=== PATIENT | female | born 1955 | race Caucasian/White ===

== ENCOUNTER 2016-08-21 10:51 | Emergency (ER) | payer MEDICARE ==
[2016-08-21 11:01] VITALS: TEMP 98.8
[2016-08-21] MEDS ORDERED: ONDANSETRON 4 MG/2 ML VIAL IVP STA (12:02)
[2016-08-21] MEDS ORDERED: MORPHINE SULFATE 4 MG/ML SYRINGE IV STA (12:02)
[2016-08-21] MEDS ORDERED: SODIUM CHLORIDE 0.9% 500 ML IV STA (12:07)
--- NOTE | 2016-08-21 12:10 | ED ---
Nausea/Vomiting/Diarrhea HPI - General Chief complaint: Nausea/Vomiting/Diarrhea Stated complaint: Nausea/Vomiting Time Seen by Provider: 08/21/16 10:55 Source: patient, EMS Mode of arrival: ambulatory Limitations: no limitations - History of Present Illness Initial comments: This patient is a 61-year-old woman who comes to be evaluated after she had a syncopal episode at her doctor's office this morning. The patient states that she had gone to see her physician, Dr. Pressley, after she has had a number of days of nausea and vomiting with some diffuse abdominal pain. The patient states that while she was there she got up, then she started seeing stars and felt lightheaded, then she remembers waking up on the floor. The patient does note that she has not been able to keep down much in way of fluids or her medications. She started having some nausea and vomiting on Wednesday night which has continued. She also has a little bit of diffuse abdominal pain that does seem to come and go. Patient states she has not been able keep down much in way of fluids or take any of her medications for about the past 4-5 days. MD complaint: nausea, vomiting, abdominal pain, other (Syncope) Onset/Timin -: days(s) Description of Vomiting: food contents Associated Abdominal Pain: Yes Location: diffuse Radiation: none Severity: moderate Quality: cramping, stabbing Consistency: intermittent Improves with: none Worsens with: none Associated Symptoms: denies other symptoms - Related Data Home Medications Medication Instructions Recorded Confirmed Gabapentin 800 mg PO TID 09/04/15 08/21/16 Oxybutynin Chloride [Ditropan] 10 mg PO BID 11/28/15 08/21/16 Triamcinolone 0.1% Cream [Kenalog] 1 applic TOPICAL BID 01/31/16 08/21/16 Carboxymethylcellulose Sodium 1 drop OPHTHALMIC BID PRN 06/30/16 08/21/16 [Refresh Tears] Ibuprofen [Motrin] 800 mg PO Q8H PRN 06/30/16 08/21/16 Levothyroxine Sodium [Synthroid] 100 mcg PO DAILY 06/30/16 08/21/16 Tamsulosin HCl [Flomax] 0.8 mg PO DAILY 06/30/16 08/21/16 hydrOXYzine HCL 10 mg PO HS 06/30/16 08/21/16 oxyCODONE-APAP 5-325MG [Percocet 1 tab PO Q6H PRN 06/30/16 08/21/16 5-325 mg] Mirabegron [Myrbetriq] 25 mg PO DAILY 08/21/16 08/21/16 Ondansetron Odt [Zofran Odt] 4 mg PO QID PRN 08/21/16 08/21/16 Oseltamivir [Tamiflu] 75 mg PO BID 08/21/16 08/21/16 Previous Rx's Medication Instructions Recorded Omeprazole [PriLOSEC] 20 mg PO AC-BID 15 Days 02/13/15 Dicyclomine [Bentyl] 20 mg PO QID #15 tablet 08/21/16 Ondansetron Odt [Zofran ODT] 4 mg PO Q8HR PRN #10 tab 08/21/16 Allergies Allergy/AdvReac Type Severity Reaction Status Date / Time adhesive tape Allergy Itching, Verified 08/21/16 11:20 REDNESS ciprofloxacin [From Cipro] Allergy Rash/Hives Verified 08/21/16 11:20 ciprofloxacin HCl Allergy Rash/Hives Verified 08/21/16 11:20 [From Cipro] colesevelam HCl Allergy Rash/Hives Verified 08/21/16 11:20 [From WelChol] latex Allergy Anaphylaxis Verified 08/21/16 11:20 levofloxacin [From Levaquin] Allergy Unknown Verified 08/21/16 11:20 prochlorperazine edisylate Allergy Anaphylaxis Verified 08/21/16 11:20 [From Compazine] prochlorperazine maleate Allergy Anaphylaxis Verified 08/21/16 11:20 [From Compazine] zolpidem [From Ambien] Allergy Anaphylaxis Verified 08/21/16 11:20 nitroglycerin AdvReac Swelling Verified 08/21/16 11:20 tramadol HCl [From Ultram] AdvReac WEAKNESS, Verified 08/21/16 11:20 DIZZYNESS COMBID Allergy Anaphylaxis Uncoded 08/21/16 11:08 Review of Systems ROS Statement: Those systems with pertinent positive or pertinent negative responses have been documented in the HPI. ROS Other: All systems not noted in ROS Statement are negative. Constitutional: Denies: fever, chills, weakness Respiratory: Denies: cough, dyspnea Cardiovascular: Reports: syncope. Denies: chest pain, palpitations, edema Gastrointestinal: Reports: abdominal pain, nausea, vomiting. Denies: diarrhea, constipation Genitourinary: Denies: dysuria, hematuria Musculoskeletal: Denies: back pain Skin: Denies: rash Neurological: Denies: headache, weakness, numbness Past Medical History Past Medical History: Chest Pain / Angina, Eye Disorder, Fibromyalgia, GERD/ Reflux, Memory Impairment, Osteoarthritis (OA), Pneumonia, Seizure Disorder, Thyroid Disorder Additional Past Medical History / Comment(s): Brain Aneurysm. FREYA RESOLVED. 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 MINOR, OCC Short term memory loss. DDD Cervical, Thoracic, Lumbar levels. Chronic Pain syndrome in Back. HX Breast CA. Proctosigmoiditis w/ Colostomy. Diverticulosis. Neuropathy kalyani legs/feet. Migraines. Veritgo. Glaucoma kalyani. KEISHA-BARRE, septic shock History of Any Multi-Drug Resistant Organisms: C-DIFF Date of last positivie culture/infection: 2010 MDRO Source:: stool Past Surgical History: Adenoidectomy, Back Surgery, Bladder Surgery, Bowel Resection, Breast Surgery, Cholecystectomy, Heart Catheterization, Hysterectomy , Joint Replacement, Tonsillectomy Additional Past Surgical History / Comment(s): 12/06/13 Cardiac cath-normal. cervical Fusion, Back surgury-rods/screws/cage, partial bowel resection with colostomy, bilateral mastectomies, total RIGHT KNEE REPLACEMENT, L knee arthroscopy, bladder suspension, cataracts Past Anesthesia/Blood Transfusion Reactions: Family History of Problems w/ Anesthesia, Postoperative Nausea & Vomiting (PONV) Additional Past Anesthesia/Blood Transfusion Reaction / Comment(s): FAMILY HAS PONV. Past Psychological History: Anxiety, Depression Additional Psychological History / Comment(s): Past medical records indicate manic depression, bulimia. R/T OF SPOUSE, MOTHER'S ILLNESS. Smoking Status: Never smoker Past Alcohol Use History: None Reported Past Drug Use History: None Reported - Past Family History Father Family Medical History: Cancer, Musculoskeletal Disorder, Neurologic Disorder Additional Family Medical History / Comment(s): Father at 77 yrs. He had parkinson's dx. Mother Family Medical History: Cancer Additional Family Medical History / Comment(s): Mother had breast cancer. She is alive and 82 yrs old. General Exam Limitations: no limitations General appearance: alert, in no apparent distress Head exam: Present: atraumatic, normocephalic Eye exam: Present: normal appearance. Absent: scleral icterus, conjunctival injection ENT exam: Present: mucous membranes dry Neck exam: Present: normal inspection, full ROM Respiratory exam: Present: normal lung sounds bilaterally. Absent: respiratory distress, wheezes, rales, rhonchi, stridor Cardiovascular Exam: Present: regular rate, normal rhythm, normal heart sounds. Absent: systolic murmur, diastolic murmur, rubs, gallop GI/Abdominal exam: Present: soft, normal bowel sounds. Absent: distended, tenderness, guarding, rebound, mass, pulsatile mass, hernia Extremities exam: Present: normal inspection, normal capillary refill. Absent: pedal edema, calf tenderness Back exam: Present: normal inspection. Absent: CVA tenderness (R), CVA tenderness (L) Neurological exam: Present: alert Skin exam: Present: warm, dry, intact, normal color. Absent: rash Course Vital Signs 08/21/16 08/21/16 10:55 13:00 Temperature 98.8 F Pulse Rate 75 73 Respiratory 14 18 Rate Blood Pressure 120/58 116/58 O2 Sat by Pulse 98 99 Oximetry Medical Decision Making - Medical Decision Making Patient is 61-year-old woman being seen for syncopal episode after having multiple episodes of vomiting over the past few days. The workup shows probably mild dehydration. Patient has received IV fluids and medication and is feeling much better. I did discuss the results with the patient and with her physician Dr. Pressley who will follow-up with her. Patient feels well for discharge. - Lab Data Result diagrams: 08/21/16 11:04 08/21/16 11:04 Lab Results 08/21/16 08/21/16 08/21/16 Range/Units 11:04 11:04 11:04 WBC 8.7 (3.8-10.6) k/uL RBC 4.17 (3.80-5.40) m/uL Hgb 12.2 (11.4-16.0) gm/dL Hct 37.2 (34.0-46.0) % MCV 89.2 (80.0-100.0) fL MCH 29.3 (25.0-35.0) pg MCHC 32.9 (31.0-37.0) g/dL RDW 15.2 (11.5-15.5) % Plt Count 297 (150-450) k/uL Neutrophils % 62 % Lymphocytes % 28 % Monocytes % 4 % Eosinophils % 3 % Basophils % 1 % Neutrophils # 5.4 (1.3-7.7) k/uL Lymphocytes # 2.4 (1.0-4.8) k/uL Monocytes # 0.4 (0-1.0) k/uL Eosinophils # 0.3 (0-0.7) k/uL Basophils # 0.1 (0-0.2) k/uL Sodium 145 (137-145) mmol/L Potassium 4.3 (3.5-5.1) mmol/L Chloride 107 (98-107) mmol/L Carbon Dioxide 24 (22-30) mmol/L Anion Gap 14 mmol/L BUN 22 H (7-17) mg/dL Creatinine 0.68 (0.52-1.04) mg/dL Est GFR (MDRD) Af Amer >60 (>60 ml/min/1.73 sqM) Est GFR (MDRD) Non-Af >60 (>60 ml/min/1.73 sqM) Glucose 86 (74-99) mg/dL Calcium 9.8 (8.4-10.2) mg/dL Total Bilirubin 0.4 (0.2-1.3) mg/dL AST 20 (14-36) U/L ALT 32 (9-52) U/L Alkaline Phosphatase 113 (38-126) U/L Troponin I <0.012 (0.000-0.034) ng/mL Total Protein 6.7 (6.3-8.2) g/dL Albumin 3.8 (3.5-5.0) g/dL Amylase <30 L (30-110) U/L Lipase 46 (23-300) U/L Urine Color Urine Appearance (Clear) Urine pH (5.0-8.0) Ur Specific [place] (1.001-1.035) Urine Protein (Negative) Urine Glucose (UA) (Negative) Urine Ketones (Negative) Urine Blood (Negative) Urine Nitrate (Negative) Urine Bilirubin (Negative) Urine Urobilinogen (<2.0) mg/dL Ur Leukocyte Esterase (Negative) 08/21/16 Range/Units 13:10 WBC (3.8-10.6) k/uL RBC (3.80-5.40) m/uL Hgb (11.4-16.0) gm/dL Hct (34.0-46.0) % MCV (80.0-100.0) fL MCH (25.0-35.0) pg MCHC (31.0-37.0) g/dL RDW (11.5-15.5) % Plt Count (150-450) k/uL Neutrophils % % Lymphocytes % % Monocytes % % Eosinophils % % Basophils % % Neutrophils # (1.3-7.7) k/uL Lymphocytes # (1.0-4.8) k/uL Monocytes # (0-1.0) k/uL Eosinophils # (0-0.7) k/uL Basophils # (0-0.2) k/uL Sodium (137-145) mmol/L Potassium (3.5-5.1) mmol/L Chloride (98-107) mmol/L Carbon Dioxide (22-30) mmol/L Anion Gap mmol/L BUN (7-17) mg/dL Creatinine (0.52-1.04) mg/dL Est GFR (MDRD) Af Amer (>60 ml/min/1.73 sqM) Est GFR (MDRD) Non-Af (>60 ml/min/1.73 sqM) Glucose (74-99) mg/dL Calcium (8.4-10.2) mg/dL Total Bilirubin (0.2-1.3) mg/dL AST (14-36) U/L ALT (9-52) U/L Alkaline Phosphatase (38-126) U/L Troponin I (0.000-0.034) ng/mL Total Protein (6.3-8.2) g/dL Albumin (3.5-5.0) g/dL Amylase (30-110) U/L Lipase (23-300) U/L Urine Color Light Yellow Urine Appearance Clear (Clear) Urine pH 6.0 (5.0-8.0) Ur Specific [place] 1.008 (1.001-1.035) Urine Protein Negative (Negative) Urine Glucose (UA) Negative (Negative) Urine Ketones Negative (Negative) Urine Blood Negative (Negative) Urine Nitrate Negative (Negative) Urine Bilirubin Negative (Negative) Urine Urobilinogen <2.0 (<2.0) mg/dL Ur Leukocyte Esterase Negative (Negative) - EKG Data -: EKG Interpreted by Me EKG shows normal: sinus rhythm, axis (Normal), intervals (Normal), QRS complexes (Normal), ST-T waves (Normal) Rate: normal (Rate 74 bpm) Interpretation: normal EKG Disposition Clinical Impression: Vomiting, Syncope Disposition: HOME SELF-CARE Condition: Fair Instructions: Acute Nausea and Vomiting (ED) Prescriptions: Dicyclomine [Bentyl] 20 mg PO QID #15 tablet Ondansetron Odt [Zofran ODT] 4 mg PO Q8HR PRN #10 tab PRN Reason: Nausea Referrals: Jaskaran Pressley MD [Primary Care Provider] - 1-2 days
[2016-08-21 12:20] LABS: Basophils # (A) 0.1 k/uL (0-0.2); Basophils % (A) 1 %; CH 29.4; CHCM 33.1; Eosinophils # (A) 0.3 k/uL (0-0.7); Eosinophils % (A) 3 %; HCT 37.2 % (34.0-46.0); HDW 3.09; HGB 12.2 gm/dL (11.4-16.0); Luc # (Auto) 0.15; Luc % (Auto) 2; Lymphocytes # (A) 2.4 k/uL (1.0-4.8); Lymphocytes % (A) 28 %; MCH 29.3 pg (25.0-35.0); MCHC 32.9 g/dL (31.0-37.0); MCV 89.2 fL (80.0-100.0); Mean Platelet Volume 8.5; Monocytes # (A) 0.4 k/uL (0-1.0); Monocytes % (A) 4 %; Neutrophils # (A) 5.4 k/uL (1.3-7.7); Neutrophils % (A) 62 %; RBC 4.17 m/uL (3.80-5.40); RDW 15.2 % (11.5-15.5); WBC 8.7 k/uL (3.8-10.6); WBC (Perox) 8.72
[2016-08-21 12:29] LABS: ALT 32 U/L (9-52); AST 20 U/L (14-36); Alkaline Phosphatase 113 U/L (38-126); Amylase <30 U/L (30-110); Anion Gap 14 mmol/L; Blood Urea Nitrogen 22 mg/dL (7-17); Calcium 9.8 mg/dL (8.4-10.2); Carbon Dioxide 24 mmol/L (22-30); Chloride 107 mmol/L (98-107); Glucose 86 mg/dL (74-99); Non-African American GFR(MDRD) >60 (>60 ml/min/1.73 sqM); Potassium 4.3 mmol/L (3.5-5.1); Sodium 145 mmol/L (137-145); Total Bilirubin 0.4 mg/dL (0.2-1.3); Total Protein 6.7 g/dL (6.3-8.2)
--- NOTE | 2016-08-21 12:32 | XR ---
EXAMINATION TYPE: XR KUB DATE OF EXAM: 08/21/2016 12:26 PM CLINICAL HISTORY: Abdominal pain and nausea. TECHNIQUE: 2 upright KUB images of the abdomen are obtained COMPARISON: Abdominal x-ray April 20, 2014. FINDINGS: Scattered gas is seen in non-distended small bowel loops. Gas and fecal material is seen in non-distended colon. Long segment fusion surgery from L3 through S1 level is redemonstrated. Surgi sam changes at bilateral pubic symphysis are again seen. Scattered pelvic phleboliths are redemonstra daren. No pneumoperitoneum is identified. Lung bases are clear. IMPRESSION: Overall nonobstructive bowel gas pattern.
[2016-08-21 13:01] VITALS: BP 116/58; PULSE 73; RESP 18
[2016-08-21] MEDS ORDERED: DICYCLOMINE 10 MG/ML 2 ML AMP IM STA (13:12)
[2016-08-21 13:28] LABS: Appearance,Urine Clear (Clear); Bilirubin,Urine Negative (Negative); Glucose,Urine (UA) Negative (Negative); Ketones,Urine Negative (Negative); Leukocyte Esterase,Urine Negative (Negative); Nitrite,Urine Negative (Negative); Protein,Urine Negative (Negative); Specific Gravity,Urine 1.008 (1.001-1.035); UA Billing (MACRO vs. MICRO) CHEM; Urobilinogen,Urine <2.0 mg/dL (<2.0)
== END 2016-08-21 14:22 | disposition home or self-care (01) ==
LOC: EC 10:51
DX: R55 Syncope and collapse (principal); R11.2 Nausea with vomiting, unspecified; M79.7 Fibromyalgia; K21.9 Gastro-esophageal reflux disease without esophagitis; E07.9 Disorder of thyroid, unspecified; F32.9 Major depressive disorder, single episode, unspecified; G89.4 Chronic pain syndrome; M19.90 Unspecified osteoarthritis, unspecified site; F41.9 Anxiety disorder, unspecified; Z79.899 Other long term (current) drug therapy; Z91.040 Latex allergy status; Z88.1 Allergy status to other antibiotic agents; Z88.8 Allergy status to other drugs, medicaments and biological substances
CPT/HCPCS: 36415; 93005; 80053; 82150; 83690; 84484; 85025; 81003; 74000; 99285; 96374; 96375; 96372; J2270; J0500; J2405

== ENCOUNTER → 2017-01-26 | Outpatient (CLI) | payer MEDICARE ==
--- NOTE | 2017-01-26 16:33 | XR ---
EXAMINATION TYPE: XR abdomen 2V DATE OF EXAM: 01/26/2017 CLINICAL DATA: 61 year-old female nausea for 3 days, gastroenteritis., [facility] COMPARISON: 08/21/2016 FINDINGS: Lung bases are clear. No evidence for free intraperitoneal air. Scattered air within the colon extending distally into the rectum. A couple small nonspecific air-flu id levels are seen within the right mid abdomen. Left lower quadrant colostomy. No dilated small bowel loops seen. Multiple pelvic phleboliths. Posterior lumbar fusion hardware with corresponding laminectomies. IMPRESSION: 1. No evidence of bowel obstruction or free intraperitoneal air. 2. A couple nonspecific small air-fluid levels within the right mid abdomen could represent a regiona l ileus or enteritis.
== END | disposition home or self-care (01) ==
LOC: RADXRMAIN 15:44
PROVIDERS: ATTEND Family Medicine
DX: K52.9 Noninfective gastroenteritis and colitis, unspecified (principal)
CPT/HCPCS: 74020

== ENCOUNTER 2017-02-04 16:33 | Emergency (ER) | payer MEDICARE ==
[2017-02-04] MEDS ORDERED: ONDANSETRON 4 MG/2 ML VIAL IVP STA (17:24)
[2017-02-04] MEDS ORDERED: RX INFO: IV CONTRAST WAS GIVEN 1 EACH MISC MISCELLANE PRN (17:24)
[2017-02-04] MEDS ORDERED: MORPHINE SULFATE 4 MG/ML SYRINGE IVP STA (17:24)
[2017-02-04] MEDS ORDERED: SODIUM CHLORIDE 0.9% 1,000 ML IV ONE (17:24)
[2017-02-04 17:44] LABS: Anisocytosis Slight; Basophils % (A) 0 %; CH 30.2; CHCM 33.9; Eosinophils # (A) 0.2 k/uL (0-0.7); Eosinophils % (A) 1 %; HCT 37.1 % (34.0-46.0); HDW 2.74; HGB 12.2 gm/dL (11.4-16.0); Luc # (Auto) 0.19; Luc % (Auto) 2; Lymphocytes # (A) 2.8 k/uL (1.0-4.8); Lymphocytes % (A) 25 %; MCH 29.5 pg (25.0-35.0); MCV 89.6 fL (80.0-100.0); Mean Platelet Volume 8.3; Monocytes # (A) 0.6 k/uL (0-1.0); Monocytes % (A) 5 %; Neutrophils # (A) 7.6 k/uL (1.3-7.7); Neutrophils % (A) 67 %; RBC 4.14 m/uL (3.80-5.40); RDW 16.3 % (11.5-15.5); WBC 11.4 k/uL (3.8-10.6); WBC (Perox) 11.74
[2017-02-04 17:47] LABS: ALT 46 U/L (9-52); AST 33 U/L (14-36); Alkaline Phosphatase 102 U/L (38-126); Anion Gap 11 mmol/L; Blood Urea Nitrogen 11 mg/dL (7-17); Calcium 9.1 mg/dL (8.4-10.2); Carbon Dioxide 19 mmol/L (22-30); Chloride 105 mmol/L (98-107); Glucose 74 mg/dL (74-99); Non-African American GFR(MDRD) >60 (>60 ml/min/1.73 sqM); Potassium 4.4 mmol/L (3.5-5.1); Sodium 135 mmol/L (137-145); Total Bilirubin 0.2 mg/dL (0.2-1.3); Total Protein 6.3 g/dL (6.3-8.2)
[2017-02-04] MEDS ORDERED: diphenhydrAMINE 50 MG/ML 1 ML VIAL IVP STA (18:04)
[2017-02-04] MEDS ORDERED: FAMOTIDINE 20 MG/2 ML VIAL IV STA (18:04)
[2017-02-04] MEDS ORDERED: methylPREDNISolone SOD SUCCI 125 MG/2 ML VIAL IV STA (18:04)
[2017-02-04 19:12] LABS: Appearance,Urine Clear (Clear); Bilirubin,Urine Negative (Negative); Glucose,Urine (UA) Negative (Negative); Ketones,Urine Negative (Negative); Leukocyte Esterase,Urine Negative (Negative); Nitrite,Urine Negative (Negative); PH, Urine 6.5 (5.0-8.0); Protein,Urine Negative (Negative); Specific Gravity,Urine 1.018 (1.001-1.035); UA Billing (MACRO vs. MICRO) CHEM; Urobilinogen,Urine <2.0 mg/dL (<2.0)
[2017-02-04] MEDS ORDERED: MORPHINE SULFATE 10 MG/ML SYRINGE IVP STA (20:09)
[2017-02-04 20:30] VITALS: RESP 18
--- NOTE | 2017-02-04 21:10 | ED ---
Abdominal Pain HPI - General Chief Complaint: Abdominal Pain Stated Complaint: LEFT SIDE PAIN Source: patient Mode of arrival: wheelchair Limitations: no limitations - History of Present Illness Initial Comments: 61-year-old female presenting for evaluation of left upper quadrant abdominal pain. She describes it as a sharp pain that has been coming and going in waves and is currently at a 9 out of 10. She states it started at 11: 00 this morning and had associated nausea and vomiting with it. She's never had pain like this before and states that it goes from the left anterior upper quadrant around her flank to her back. She was recently treated for colitis and states that those symptoms have since resolved. She denies any chest pain, shortness of breath, fevers, chills, dysuria, diarrhea however there is some constipation but it is at her baseline. - Related Data Home Medications Medication Instructions Recorded Confirmed Gabapentin 800 mg PO TID 09/04/15 02/04/17 Oxybutynin Chloride [Ditropan] 10 mg PO BID 11/28/15 02/04/17 Triamcinolone 0.1% Cream [Kenalog] 1 applic TOPICAL BID 01/31/16 02/04/17 Carboxymethylcellulose Sodium 1 drop BOTH EYES BID PRN 06/30/16 02/04/17 [Refresh Tears] Ibuprofen [Motrin] 800 mg PO Q8H PRN 06/30/16 02/04/17 Levothyroxine Sodium [Synthroid] 100 mcg PO DAILY 06/30/16 02/04/17 Tamsulosin HCl [Flomax] 0.8 mg PO BID 06/30/16 02/04/17 oxyCODONE-APAP 5-325MG [Percocet 1 tab PO BID PRN 06/30/16 02/04/17 5-325 mg] Ondansetron Odt [Zofran ODT] 4 mg PO Q6H PRN 02/04/17 02/04/17 Sulfamethox-Tmp 800-160Mg [Bactrim 1 tab PO Q12HR 02/04/17 02/04/17 DS 800-160 mg] buPROPion HCL [Wellbutrin XL] 300 mg PO DAILY 02/04/17 02/04/17 metroNIDAZOLE [Flagyl] 500 mg PO QID 02/04/17 02/04/17 Previous Rx's Medication Instructions Recorded Omeprazole [PriLOSEC] 20 mg PO AC-BID 15 Days 02/13/15 Allergies Allergy/AdvReac Type Severity Reaction Status Date / Time adhesive tape Allergy Rash/Hives Verified 02/04/17 17:06 ciprofloxacin [From Cipro] Allergy Rash/Hives Verified 02/04/17 17:06 ciprofloxacin HCl Allergy Rash/Hives Verified 02/04/17 17:06 [From Cipro] colesevelam HCl Allergy Rash/Hives Verified 02/04/17 17:06 [From WelChol] latex Allergy Rash/Hives Verified 02/04/17 17:06 levofloxacin [From Levaquin] Allergy Rash/Hives Verified 02/04/17 17:06 prochlorperazine edisylate Allergy Swelling Verified 02/04/17 17:06 [From Compazine] prochlorperazine maleate Allergy Swelling Verified 02/04/17 17:06 [From Compazine] nitroglycerin AdvReac Dyspnea Verified 02/04/17 17:06 tramadol HCl [From Ultram] AdvReac WEAKNESS, Verified 02/04/17 17:06 DIZZYNESS zolpidem [From Ambien] AdvReac SLEEP Verified 02/04/17 17:06 WALKING COMBID Allergy Rash/Hives Uncoded 02/04/17 17:06 Review of Systems ROS Statement: Those systems with pertinent positive or pertinent negative responses have been documented in the HPI. ROS Other: All systems not noted in ROS Statement are negative. Constitutional: Denies: fever, chills Eyes: Denies: eye pain, eye discharge ENT: Denies: ear pain, throat pain, dental pain Respiratory: Denies: cough, dyspnea, wheezes, hemoptysis, stridor Cardiovascular: Denies: chest pain, palpitations, edema, syncope Endocrine: Denies: fatigue, polydipsia, polyuria Gastrointestinal: Reports: abdominal pain, nausea, vomiting, constipation. Denies: diarrhea, hematemesis, melena, hematochezia Genitourinary: Denies: urgency, dysuria, frequency, hematuria Musculoskeletal: Reports: back pain (pain radiates around flank to back). Denies: arthralgia, myalgia Skin: Denies: rash, lesions Neurological: Denies: headache, weakness Psychiatric: Denies: anxiety, depression Hematological/Lymphatic: Denies: easy bleeding, easy bruising Past Medical History Past Medical History: Chest Pain / Angina, Eye Disorder, Fibromyalgia, GERD/ Reflux, Memory Impairment, Osteoarthritis (OA), Pneumonia, Seizure Disorder, Thyroid Disorder Additional Past Medical History / Comment(s): Brain Aneurysm. FREYA RESOLVED. 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 MINOR, OCC Short term memory loss. DDD Cervical, Thoracic, Lumbar levels. Chronic Pain syndrome in Back. HX Breast CA. Proctosigmoiditis w/ Colostomy. Diverticulosis. Neuropathy kalyani legs/feet. Migraines. Veritgo. Glaucoma kalyani. KEISHA-BARRE, septic shock History of Any Multi-Drug Resistant Organisms: C-DIFF Date of last positivie culture/infection: 2010 MDRO Source:: stool Past Surgical History: Adenoidectomy, Back Surgery, Bladder Surgery, Bowel Resection, Breast Surgery, Cholecystectomy, Heart Catheterization, Hysterectomy , Joint Replacement, Tonsillectomy Additional Past Surgical History / Comment(s): 12/06/13 Cardiac cath-normal. cervical Fusion, Back surgury-rods/screws/cage, partial bowel resection with colostomy, bilateral mastectomies, total RIGHT KNEE REPLACEMENT, L knee arthroscopy, bladder suspension, cataracts Past Anesthesia/Blood Transfusion Reactions: Family History of Problems w/ Anesthesia, Postoperative Nausea & Vomiting (PONV) Additional Past Anesthesia/Blood Transfusion Reaction / Comment(s): FAMILY HAS PONV. Past Psychological History: Anxiety, Depression Smoking Status: Never smoker Past Alcohol Use History: None Reported Past Drug Use History: None Reported - Past Family History Father Family Medical History: Cancer, Musculoskeletal Disorder, Neurologic Disorder Additional Family Medical History / Comment(s): Father at 77 yrs. He had parkinson's dx. Mother Family Medical History: Cancer Additional Family Medical History / Comment(s): Mother had breast cancer. She is alive and 82 yrs old. General Exam Limitations: no limitations General appearance: alert, in no apparent distress Head exam: Present: atraumatic, normocephalic, normal inspection Eye exam: Present: normal appearance, PERRL, EOMI. Absent: scleral icterus, conjunctival injection, periorbital swelling ENT exam: Present: normal exam, mucous membranes moist Neck exam: Present: normal inspection. Absent: tenderness, meningismus, lymphadenopathy Respiratory exam: Present: normal lung sounds bilaterally. Absent: respiratory distress, wheezes, rales, rhonchi, stridor Cardiovascular Exam: Present: regular rate, normal rhythm, normal heart sounds. Absent: systolic murmur, diastolic murmur, rubs, gallop, clicks GI/Abdominal exam: Present: soft, tenderness (LUQ), normal bowel sounds. Absent : distended, guarding, rebound, rigid Rectal exam: Present: deferred Extremities exam: Present: normal inspection, full ROM, normal capillary refill. Absent: tenderness, pedal edema, joint swelling, calf tenderness Back exam: Present: normal inspection, CVA tenderness (L) (mild). Absent: CVA tenderness (R) Neurological exam: Present: alert, oriented X3, CN II-XII intact Psychiatric exam: Present: normal affect, normal mood Skin exam: Present: warm, dry, intact, normal color. Absent: rash Course Vital Signs 02/04/17 02/04/17 02/04/17 16:43 19:02 20:28 Temperature 99.2 F Pulse Rate 84 76 82 Respiratory 20 16 18 Rate Blood Pressure 129/57 103/55 108/51 O2 Sat by Pulse 97 99 94 L Oximetry 02/04/17 21:22 Temperature 98.0 F Pulse Rate 76 Respiratory 18 Rate Blood Pressure 98/60 O2 Sat by Pulse 97 Oximetry Medical Decision Making - Medical Decision Making 61-year-old female presented for evaluation of left upper quadrant abdominal pain that radiates around to her left back. Started this morning at 11 AM and his shortness rate at 9 out of 10 currently. On physical examination she does have tenderness to the left upper quadrant without peritoneal signs of guarding, rigidity, or rebound. There is left CVA tenderness however it is very mild. Remainder of the physical exam is benign. Labs revealed mild hyponatremia however the remainder of her results were not significantly abnormal. CT abdomen showed a large amount of stool in the bowels however no left-sided obstructive uropathy or other acute abnormalities. The patient was reevaluated and had improvement in pain. She was informed of all results and at this point she stated that she was ready to be discharged home. She was advised to follow-up with her primary care physician and given return instructions. The patient acknowledged an understanding of this information and agreed with this plan of care. - Lab Data Result diagrams: 02/04/17 17:15 02/04/17 17:15 Lab Results 02/04/17 02/04/1702/04/17 Range/Units 17:15 17:15 17:15 WBC 11.4 H (3.8-10.6) k/uL RBC 4.14 (3.80-5.40) m/uL Hgb 12.2 (11.4-16.0) gm/dL Hct 37.1 (34.0-46.0) % MCV 89.6 (80.0-100.0) fL MCH 29.5 (25.0-35.0) pg MCHC 33.0 (31.0-37.0) g/dL RDW 16.3 H (11.5-15.5) % Plt Count 276 (150-450) k/uL Neutrophils % 67 % Lymphocytes % 25 % Monocytes % 5 % Eosinophils % 1 % Basophils % 0 % Neutrophils # 7.6 (1.3-7.7) k/uL Lymphocytes # 2.8 (1.0-4.8) k/uL Monocytes # 0.6 (0-1.0) k/uL Eosinophils # 0.2 (0-0.7) k/uL Basophils # 0.0 (0-0.2) k/uL Anisocytosis Slight Sodium 135 L (137-145) mmol/L Potassium 4.4 (3.5-5.1) mmol/L Chloride 105 (98-107) mmol/L Carbon Dioxide 19 L (22-30) mmol/L Anion Gap 11 mmol/L BUN 11 (7-17) mg/dL Creatinine 0.84 (0.52-1.04) mg/dL Est GFR (MDRD) Af Amer >60 (>60 ml/min/1.73 sqM) Est GFR (MDRD) Non-Af >60 (>60 ml/min/1.73 sqM) Glucose 74 (74-99) mg/dL Plasma Lactic Acid Matheus (0.7-2.0) mmol/L Calcium 9.1 (8.4-10.2) mg/dL Total Bilirubin 0.2 (0.2-1.3) mg/dL AST 33 (14-36) U/L ALT 46 (9-52) U/L Alkaline Phosphatase 102 (38-126) U/L Troponin I (0.000-0.034) ng/mL NT-Pro-B Natriuret Pep 35 pg/mL Total Protein 6.3 (6.3-8.2) g/dL Albumin 3.7 (3.5-5.0) g/dL Lipase 60 (23-300) U/L Urine Color Urine Appearance (Clear) Urine pH (5.0-8.0) Ur Specific Clarinda (1.001-1.035) Urine Protein (Negative) Urine Glucose (UA) (Negative) Urine Ketones (Negative) Urine Blood (Negative) Urine Nitrite (Negative) Urine Bilirubin (Negative) Urine Urobilinogen (<2.0) mg/dL Ur Leukocyte Esterase (Negative) 02/04/17 02/04/17 02/04/17 Range/Units 17:15 17:52 Unknown WBC (3.8-10.6) k/uL RBC (3.80-5.40) m/uL Hgb (11.4-16.0) gm/dL Hct (34.0-46.0) % MCV (80.0-100.0) fL MCH (25.0-35.0) pg MCHC (31.0-37.0) g/dL RDW (11.5-15.5) % Plt Count (150-450) k/uL Neutrophils % % Lymphocytes % % Monocytes % % Eosinophils % % Basophils % % Neutrophils # (1.3-7.7) k/uL Lymphocytes # (1.0-4.8) k/uL Monocytes # (0-1.0) k/uL Eosinophils # (0-0.7) k/uL Basophils # (0-0.2) k/uL Anisocytosis Sodium (137-145) mmol/L Potassium (3.5-5.1) mmol/L Chloride (98-107) mmol/L Carbon Dioxide (22-30) mmol/L Anion Gap mmol/L BUN (7-17) mg/dL Creatinine (0.52-1.04) mg/dL Est GFR (MDRD) Af Amer (>60 ml/min/1.73 sqM) Est GFR (MDRD) Non-Af (>60 ml/min/1.73 sqM) Glucose (74-99) mg/dL Plasma Lactic Acid Matheus 0.7 (0.7-2.0) mmol/L Calcium (8.4-10.2) mg/dL Total Bilirubin (0.2-1.3) mg/dL AST (14-36) U/L ALT (9-52) U/L Alkaline Phosphatase (38-126) U/L Troponin I <0.012 (0.000-0.034) ng/mL NT-Pro-B Natriuret Pep pg/mL Total Protein (6.3-8.2) g/dL Albumin (3.5-5.0) g/dL Lipase (23-300) U/L Urine Color Colorless Urine Appearance Clear (Clear) Urine pH 6.5 (5.0-8.0) Ur Specific Clarinda 1.018 (1.001-1.035) Urine Protein Negative (Negative) Urine Glucose (UA) Negative (Negative) Urine Ketones Negative (Negative) Urine Blood Negative (Negative) Urine Nitrite Negative (Negative) Urine Bilirubin Negative (Negative) Urine Urobilinogen <2.0 (<2.0) mg/dL Ur Leukocyte Esterase Negative (Negative) 02/05/17 01:36 Number/rhythm without ectopy and consistent with previous EKGs. Disposition Clinical Impression: Abdominal pain Disposition: HOME SELF-CARE Condition: Stable Instructions: Abdominal Pain (ED) Referrals: Jaskaran Pressley MD [Primary Care Provider] - 1-2 days Ivy Carrion MD [STAFF PHYSICIAN] - 1-2 days Time of Disposition: 21:10
[2017-02-04 21:26] VITALS: BP 98/60; PULSE 76; TEMP 98
--- NOTE | 2017-02-05 07:34 | CT ---
EXAMINATION TYPE: CT abdomen pelvis w con DATE OF EXAM: 02/04/2017 HISTORY: Left-sided abdominal pain, history of colitis. CT DLP: 592mGycm Automated Exposure Control for Dose Reduction was Utilized. CONTRAST: CT scan of the abdomen and pelvis is performed with IV Contrast, patient injected with 100 mL of Omni paque 300. COMPARISON: Pelvic ultrasound dated 06/12/2016. CT abdomen pelvis dated 09/16/2013. FINDINGS: LUNG BASES: Bibasilar subsegmental dependent atelectasis is seen in the visualized portions of the teo ngs. There is partial visualization of bilateral breast implants. LIVER/GB: No significant abnormality is appreciated. No intrahepatic biliary ductal dilatation. Gallb ladder is surgically absent. PANCREAS: No significant abnormality is seen. SPLEEN: No significant abnormality is seen. Benign coarse calcification is seen near the splenic hilu m as well as a second punctate splenic calcification from prior granulomatous disease. Small splenule is seen inferior to the splenic hilum. ADRENALS: No significant abnormality is seen. KIDNEYS: No significant abnormality is seen. BOWEL: Large amount of stool is seen within the descending colon and rectal vault as well as pancolon ic diverticulosis. No evidence of diverticulitis. Left-sided ostomy is seen. UTERUS/ADNEXA: A 6.1 x 3.3 cm right adnexal fluid-filled mass is appreciated, which is increased in s ize from the prior examination. Further evaluation is warranted in this presumably postmenopausal fem liaan. Smaller left cystic adnexal follicle measures 2.3 cm. LYMPH NODES: No greater than 1cm abdominal or pelvic lymph nodes are appreciated. OSSEOUS STRUCTURES: No significant abnormality is seen. Postsurgical change is seen of the lower lumb ar spine. Other mild degenerative changes are present of the thoracolumbar spine. Osseous structures appear intact. IMPRESSION: 1. Enlarging right adnexal cystic structure which could represent ovarian neoplasm in a presumably po stmenopausal female such as serous/mucinous cystadenocarcinoma or cystadenoma. Further evaluation wit h enhanced MRI could be performed for further evaluation. 2. Copious amount of stool within the distal colon, which could attribute to abdominal pain. 3. Diverticulosis without evidence of diverticulitis.
== END 2017-02-04 21:22 | disposition home or self-care (01) ==
LOC: EC 16:33
DX: R10.12 Left upper quadrant pain (principal); R11.2 Nausea with vomiting, unspecified; K59.00 Constipation, unspecified; M79.7 Fibromyalgia; K21.9 Gastro-esophageal reflux disease without esophagitis; M19.90 Unspecified osteoarthritis, unspecified site; E07.9 Disorder of thyroid, unspecified; G40.909 Epilepsy, unspecified, not intractable, without status epilepticus; F32.9 Major depressive disorder, single episode, unspecified; Z90.49 Acquired absence of other specified parts of digestive tract; Z88.1 Allergy status to other antibiotic agents; Z88.5 Allergy status to narcotic agent; Z88.8 Allergy status to other drugs, medicaments and biological substances; Z91.040 Latex allergy status; Z91.048 Other nonmedicinal substance allergy status; Z79.899 Other long term (current) drug therapy
CPT/HCPCS: 99284; 96374; 96375 ×4; 96376; 96361 ×3; 36415; 93005; 83880; 80053; 83605; 83690; 84484; 85025; 81003; 74177; J2270 ×2; J1200; J2930; J2405; Q9967

== ENCOUNTER 2018-01-10 05:26 | Inpatient (IN) | payer MEDICARE ==
[2018-01-10] MEDS ORDERED: MORPHINE SULFATE 2 MG/ML SYRINGE IV STA (05:34)
[2018-01-10] MEDS ORDERED: PANTOPRAZOLE 40 MG/10 ML VIAL IVP STA ×2 (05:34→08:43)
[2018-01-10] MEDS ORDERED: SODIUM CHLORIDE 0.9% 1,000 ML IV STA (05:34)
[2018-01-10] MEDS ORDERED: ONDANSETRON 4 MG/2 ML VIAL IVP STA (05:34)
[2018-01-10 05:52] LABS: Anisocytosis Slight; Basophils % (A) 0 %; Eosinophils % (A) 0 %; HCT 38.5 % (34.0-46.0); HGB 12.6 gm/dL (11.4-16.0); Lymphocytes # (A) 0.8 k/uL (1.0-4.8); Lymphocytes % (A) 7 %; MCH 26.6 pg (25.0-35.0); MCHC 32.8 g/dL (31.0-37.0); MCV 81.3 fL (80.0-100.0); Mean Platelet Volume 8.3; Monocytes # (A) 0.7 k/uL (0-1.0); Monocytes % (A) 6 %; Neutrophils # (A) 9.9 k/uL (1.3-7.7); Neutrophils % (A) 86 %; Platelet Count 298 k/uL (150-450); RBC 4.73 m/uL (3.80-5.40); RDW 16.5 % (11.5-15.5); WBC 11.5 k/uL (3.8-10.6)
--- NOTE | 2018-01-10 05:53 | ED ---
General Adult HPI - General Source: patient, RN notes reviewed, old records reviewed Mode of arrival: wheelchair Limitations: no limitations <Kei Palafox - Last Filed: 01/10/18 06:27> <Alize Hunt - Last Filed: 01/10/18 08:17> - General Chief complaint: Abdominal Pain Stated complaint: Abdominal Pain Time Seen by Provider: 01/10/18 05:33 - History of Present Illness Initial comments: This is a 62-year-old female the ER for evaluation of severe abdominal pain. Severe epigastric and diffuse abdominal pain. Positive nausea positive vomiting. Patient has significant medical history, also significant surgical history. Patient has had multiple abdominal surgeries. She denies recent travel history no fever. She is having increased vomiting. Denies diarrhea or constipation (Kei Palafox) - Related Data Home Medications Medication Instructions Recorded Confirmed Gabapentin 800 mg PO TID 09/04/15 02/04/17 Oxybutynin Chloride [Ditropan] 10 mg PO BID 11/28/15 02/04/17 Triamcinolone 0.1% Cream [Kenalog] 1 applic TOPICAL BID 01/31/16 02/04/17 Carboxymethylcellulose Sodium 1 drop BOTH EYES BID PRN 06/30/16 02/04/17 [Refresh Tears] Ibuprofen [Motrin] 800 mg PO Q8H PRN 06/30/16 02/04/17 Levothyroxine Sodium [Synthroid] 100 mcg PO DAILY 06/30/16 02/04/17 Tamsulosin HCl [Flomax] 0.8 mg PO BID 06/30/16 02/04/17 oxyCODONE-APAP 5-325MG [Percocet 1 tab PO BID PRN 06/30/16 02/04/17 5-325 mg] Ondansetron Odt [Zofran ODT] 4 mg PO Q6H PRN 02/04/17 02/04/17 Sulfamethox-Tmp 800-160Mg [Bactrim 1 tab PO Q12HR 02/04/17 02/04/17 DS 800-160 mg] buPROPion HCL [Wellbutrin XL] 300 mg PO DAILY 02/04/17 02/04/17 metroNIDAZOLE [Flagyl] 500 mg PO QID 02/04/17 02/04/17 Previous Rx's Medication Instructions Recorded Omeprazole [PriLOSEC] 20 mg PO AC-BID 15 Days capsule. 02/13/15 Allergies Allergy/AdvReac Type Severity Reaction Status Date / Time adhesive tape Allergy Rash/Hives Verified 02/04/17 17:06 ciprofloxacin [From Cipro] Allergy Rash/Hives Verified 02/04/17 17:06 ciprofloxacin HCl Allergy Rash/Hives Verified 02/04/17 17:06 [From Cipro] colesevelam HCl Allergy Rash/Hives Verified 02/04/17 17:06 [From WelChol] latex Allergy Rash/Hives Verified 02/04/17 17:06 levofloxacin [From Levaquin] Allergy Rash/Hives Verified 02/04/17 17:06 prochlorperazine edisylate Allergy Swelling Verified 02/04/17 17:06 [From Compazine] prochlorperazine maleate Allergy Swelling Verified 02/04/17 17:06 [From Compazine] nitroglycerin AdvReac Dyspnea Verified 02/04/17 17:06 tramadol HCl [From Ultram] AdvReac WEAKNESS, Verified 02/04/17 17:06 DIZZYNESS zolpidem [From Ambien] AdvReac SLEEP Verified 02/04/17 17:06 WALKING COMBID Allergy Rash/Hives Uncoded 02/04/17 17:06 Review of Systems ROS Other: All systems not noted in ROS Statement are negative. <Kei Palafox - Last Filed: 01/10/18 06:27> ROS Other: All systems not noted in ROS Statement are negative. <Alize Hunt - Last Filed: 01/10/18 08:17> ROS Statement: Those systems with pertinent positive or pertinent negative responses have been documented in the HPI. Past Medical History Past Medical History: Chest Pain / Angina, Eye Disorder, Fibromyalgia, GERD/ Reflux, Memory Impairment, Osteoarthritis (OA), Pneumonia, Seizure Disorder, Thyroid Disorder Additional Past Medical History / Comment(s): Brain Aneurysm. FREYA RESOLVED. 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 MINOR, OCC Short term memory loss. DDD Cervical, Thoracic, Lumbar levels. Chronic Pain syndrome in Back. HX Breast CA. Proctosigmoiditis w/ Colostomy. Diverticulosis. Neuropathy kalyani legs/feet. Migraines. Veritgo. Glaucoma kalyani. KEISHA-BARRE, septic shock History of Any Multi-Drug Resistant Organisms: C-DIFF Date of last positivie culture/infection: 2010 MDRO Source:: stool Past Surgical History: Adenoidectomy, Back Surgery, Bladder Surgery, Bowel Resection, Breast Surgery, Cholecystectomy, Heart Catheterization, Hysterectomy , Joint Replacement, Tonsillectomy Additional Past Surgical History / Comment(s): 12/06/13 Cardiac cath-normal. cervical Fusion, Back surgury-rods/screws/cage, partial bowel resection with colostomy, bilateral mastectomies, total RIGHT KNEE REPLACEMENT, L knee arthroscopy, bladder suspension, cataracts Past Anesthesia/Blood Transfusion Reactions: Family History of Problems w/ Anesthesia, Postoperative Nausea & Vomiting (PONV) Additional Past Anesthesia/Blood Transfusion Reaction / Comment(s): FAMILY HAS PONV. Past Psychological History: Anxiety, Depression Smoking Status: Never smoker Past Alcohol Use History: None Reported Past Drug Use History: None Reported - Past Family History Father Family Medical History: Cancer, Musculoskeletal Disorder, Neurologic Disorder Additional Family Medical History / Comment(s): Father at 77 yrs. He had parkinson's dx. Mother Family Medical History: Cancer Additional Family Medical History / Comment(s): Mother had breast cancer. She is alive and 82 yrs old. <Kei Palafox - Last Filed: 01/10/18 06:27> General Exam Limitations: no limitations General appearance: alert, in no apparent distress Head exam: Present: atraumatic, normocephalic, normal inspection Eye exam: Present: normal appearance, PERRL, EOMI. Absent: scleral icterus, conjunctival injection, periorbital swelling ENT exam: Present: normal exam, mucous membranes moist Neck exam: Present: normal inspection. Absent: tenderness, meningismus, lymphadenopathy Respiratory exam: Present: normal lung sounds bilaterally. Absent: respiratory distress, wheezes, rales, rhonchi, stridor Cardiovascular Exam: Present: regular rate, normal rhythm, normal heart sounds. Absent: systolic murmur, diastolic murmur, rubs, gallop, clicks GI/Abdominal exam: Present: soft, normal bowel sounds. Absent: distended, tenderness, guarding, rebound, rigid Extremities exam: Present: normal inspection, full ROM, normal capillary refill. Absent: tenderness, pedal edema, joint swelling, calf tenderness Back exam: Present: normal inspection Neurological exam: Present: alert, oriented X3, CN II-XII intact Psychiatric exam: Present: normal affect, normal mood Skin exam: Present: warm, dry, intact, normal color. Absent: rash <Kei Palafox - Last Filed: 01/10/18 06:27> Course <Kei Palaofx - Last Filed: 01/10/18 06:27> <Alize Hunt - Last Filed: 01/10/18 08:17> Vital Signs 01/10/18 01/10/18 01/10/18 05:30 05:59 07:07 Temperature 98.5 F Pulse Rate 101 H 85 81 Respiratory 18 18 18 Rate Blood Pressure 93/73 121/57 168/67 O2 Sat by Pulse 97 96 99 Oximetry The patient is reassessed at term 8 AM a.m., labs are reviewed along with the imaging white count is 11.5 INR is normal troponin is normal, his metabolic panel unremarkable CT of the abdomen showed some inflammation over the pancreatic head and now multiple air-fluid levels were noticed along with some stranding Patient is examined patient still quite tender around the umbilical area and she looks very dry, she be hydrated term with a 500 mils bolus 1 L bolus and then maintenance fluids he be nothing by mouth right now be admitted to Dr. Pressley with the . Term with a multiple surgeries in the past I bowel resection like a cholecystectomy and hysterectomy she is at greater risk of bowel obstruction should be be admitted (Alize Hunt) Medical Decision Making - Lab Data Result diagrams: 01/10/18 05:45 01/10/18 05:45 <Kei Palafox - Last Filed: 01/10/18 06:27> - Lab Data Result diagrams: 01/10/18 05:45 01/10/18 05:45 <Alize Hunt - Last Filed: 01/10/18 08:17> - Lab Data Lab Results 01/10/18 01/10/18 01/10/18 Range/Units 05:45 05:45 05:45 WBC 11.5 H (3.8-10.6) k/uL RBC 4.73 (3.80-5.40) m/uL Hgb 12.6 (11.4-16.0) gm/dL Hct 38.5 (34.0-46.0) % MCV 81.3 (80.0-100.0) fL MCH 26.6 (25.0-35.0) pg MCHC 32.8 (31.0-37.0) g/dL RDW 16.5 H (11.5-15.5) % Plt Count 298 (150-450) k/uL Neutrophils % 86 % Lymphocytes % 7 % Monocytes % 6 % Eosinophils % 0 % Basophils % 0 % Neutrophils # 9.9 H (1.3-7.7) k/uL Lymphocytes # 0.8 L (1.0-4.8) k/uL Monocytes # 0.7 (0-1.0) k/uL Eosinophils # 0.0 (0-0.7) k/uL Basophils # 0.0 (0-0.2) k/uL Anisocytosis Slight PT (9.0-12.0) sec INR (<1.2) APTT (22.0-30.0) sec Sodium 144 (137-145) mmol/L Potassium 3.7 (3.5-5.1) mmol/L Chloride 108 H (98-107) mmol/L Carbon Dioxide 22 (22-30) mmol/L Anion Gap 14 mmol/L BUN 19 H (7-17) mg/dL Creatinine 0.60 (0.52-1.04) mg/dL Est GFR (CKD-EPI)AfAm >90 (>60 ml/min/1.73 sqM) Est GFR (CKD-EPI)NonAf >90 (>60 ml/min/1.73 sqM) Glucose 150 H (74-99) mg/dL Plasma Lactic Acid Matheus (0.7-2.0) mmol/L Calcium 9.6 (8.4-10.2) mg/dL Total Bilirubin 0.7 (0.2-1.3) mg/dL AST 21 (14-36) U/L ALT 26 (9-52) U/L Alkaline Phosphatase 137 H (38-126) U/L Total Creatine Kinase 58 (30-135) U/L CK-MB (CK-2) 2.2 (0.0-2.4) ng/mL CK-MB (CK-2) Rel Index 3.8 Troponin I <0.012 (0.000-0.034) ng/mL Total Protein 7.1 (6.3-8.2) g/dL Albumin 4.3 (3.5-5.0) g/dL Amylase 42 (30-110) U/L Lipase 41 (23-300) U/L 01/10/18 01/10/18 Range/Units 05:45 05:45 WBC (3.8-10.6) k/uL RBC (3.80-5.40) m/uL Hgb (11.4-16.0) gm/dL Hct (34.0-46.0) % MCV (80.0-100.0) fL MCH (25.0-35.0) pg MCHC (31.0-37.0) g/dL RDW (11.5-15.5) % Plt Count (150-450) k/uL Neutrophils % % Lymphocytes % % Monocytes % % Eosinophils % % Basophils % % Neutrophils # (1.3-7.7) k/uL Lymphocytes # (1.0-4.8) k/uL Monocytes # (0-1.0) k/uL Eosinophils # (0-0.7) k/uL Basophils # (0-0.2) k/uL Anisocytosis PT 9.5 (9.0-12.0) sec INR 1.0 (<1.2) APTT 21.6 L (22.0-30.0) sec Sodium (137-145) mmol/L Potassium (3.5-5.1) mmol/L Chloride (98-107) mmol/L Carbon Dioxide (22-30) mmol/L Anion Gap mmol/L BUN (7-17) mg/dL Creatinine (0.52-1.04) mg/dL Est GFR (CKD-EPI)AfAm (>60 ml/min/1.73 sqM) Est GFR (CKD-EPI)NonAf (>60 ml/min/1.73 sqM) Glucose (74-99) mg/dL Plasma Lactic Acid Matheus 1.5 (0.7-2.0) mmol/L Calcium (8.4-10.2) mg/dL Total Bilirubin (0.2-1.3) mg/dL AST (14-36) U/L ALT (9-52) U/L Alkaline Phosphatase (38-126) U/L Total Creatine Kinase (30-135) U/L CK-MB (CK-2) (0.0-2.4) ng/mL CK-MB (CK-2) Rel Index Troponin I (0.000-0.034) ng/mL Total Protein (6.3-8.2) g/dL Albumin (3.5-5.0) g/dL Amylase (30-110) U/L Lipase (23-300) U/L Disposition <Kei Palafox - Last Filed: 01/10/18 06:27> <Alize Hunt - Last Filed: 01/10/18 08:17> Clinical Impression: Ileus, Abdominal pain, Nausea and vomiting Disposition: ADMITTED IP TO THIS HOSP Condition: Fair Referrals: Jaskaran Pressley MD [Primary Care Provider] - 1-2 days
[2018-01-10 06:02] LABS: ALT 26 U/L (9-52); AST 21 U/L (14-36); Albumin 4.3 g/dL (3.5-5.0); Alkaline Phosphatase 137 U/L (38-126); Amylase 42 U/L (30-110); Anion Gap 14 mmol/L; Blood Urea Nitrogen 19 mg/dL (7-17); Calcium 9.6 mg/dL (8.4-10.2); Carbon Dioxide 22 mmol/L (22-30); Chloride 108 mmol/L (98-107); Glucose 150 mg/dL (74-99); Lipase 41 U/L (23-300); Potassium 3.7 mmol/L (3.5-5.1); Sodium 144 mmol/L (137-145); Total Bilirubin 0.7 mg/dL (0.2-1.3); Total Protein 7.1 g/dL (6.3-8.2)
[2018-01-10 06:11] LABS: Creatine Kinase 58 U/L (30-135)
[2018-01-10 06:12] LABS: Prothrombin Time 9.5 sec (9.0-12.0)
[2018-01-10 06:24] LABS: Creatine Kinase MB 2.2 ng/mL (0.0-2.4); Troponin I <0.012 ng/mL (0.000-0.034)
[2018-01-10 06:27] LABS: Partial Thromboplastin Time 21.6 sec (22.0-30.0)
--- NOTE | 2018-01-10 06:31 | XR ---
EXAMINATION TYPE: XR KUB 2 upright views DATE OF EXAM: 01/10/2018 COMPARISON: 01/26/2017 HISTORY: Vomiting for 3 days TECHNIQUE: 2 upright views. FINDINGS: There are multiple right-sided intestinal air-fluid levels without significant dilation of the loops . There is left-sided colostomy. Lung bases are clear. There are no pathologic calcifications over th e kidneys. There is multilevel lumbar laminectomy defect and posterior fusion surgery. There are phle boliths in the pelvis. Impression Multiple small bowel fluid levels consistent with ileus. This appears new compared to old exam. No fr ee air. Right-sided large bowel fluid levels consistent with diarrhea.
[2018-01-10] MEDS ORDERED: MORPHINE SULFATE 2 MG/ML SYRINGE IVP STA (06:48)
--- NOTE | 2018-01-10 07:47 | CT ---
EXAMINATION TYPE: CT abdomen pelvis w con DATE OF EXAM: 01/10/2018 HISTORY: Abdominal pain CT DLP: 1639mGycm Automated Exposure Control for Dose Reduction was Utilized. CONTRAST: CT scan of the abdomen and pelvis is performed with IV Contrast, patient injected with 100 mL of Isov ue 300. COMPARISON: None. FINDINGS: LUNG BASES: Minimal subsegmental bibasilar dependent atelectasis is noted. Bilateral breast implants are partially visualized. Solitary right basilar calcified granuloma is seen. LIVER/GB: Too small to accurately characterizer 3 mm hepatic lesion is seen within segment 8 of the l iver on series 3 image 13. There is very mild intrahepatic biliary ductal dilatation and extrahepatic biliary ductal dilatation and may be sequela of post cholecystectomy. Common bile duct measures up t o 9 mm PANCREAS: There is slight haziness around the pancreatic head and gastric antrum that could relate to volume averaging or mild pancreatitis. Correlation with serum laboratory values is recommended. Punc lópez calcification within the inferior pancreatic head also suggests prior pancreatitis. SPLEEN: No significant abnormality is seen. 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 ADRENALS: No significant abnormality is seen. KIDNEYS: No significant abnormality is seen. BOWEL: Left-sided ostomy is noted. Fluid is seen throughout the colon with dilatation of the rectum o btained 6.9 cm. No small bowel dilatation is seen however multiple air-fluid levels are present. UTERUS/ADNEXA: Comparison to the prior exam of 02/04/2017 there is a slightly enlarged right adnexal cy stic lesion containing a single thin internal septa measuring 6.0 x 4.2 cm and previously measuring 6 .1 x 3.3 cm. There is a small amount of fluid adjacent to the descending colon on series 3 image 61 w ithout significant surrounding inflammatory fat stranding although there is prominence of the vasa re cta. LYMPH NODES: No greater than 1cm abdominal or pelvic lymph nodes are appreciated. OSSEOUS STRUCTURES: Postoperative changes are seen of the lumbar spine. IMPRESSION: 1. Very mild inflammatory fat stranding versus volume averaging or a pancreatic head. Correlate with serum amylase and lipase to exclude mild uncomplicated acute pancreatitis. 2. Fluid-filled minimally dilated rectum containing layering debris and multiple colonic air-fluid le vels as well as small bowel air-fluid levels in overall nondilated bowel suggestive of ileus. Left-si ded ostomy is unremarkable. 3. Slight interval enlargement of the minimally complex cystic right adnexal lesion. Continued survei llance is recommended.
[2018-01-10] MEDS ORDERED: NALOXONE 0.4 MG/ML 1 ML VIAL IV PRN (08:33)
[2018-01-10] MEDS ORDERED: MORPHINE SULFATE 2 MG/ML SYRINGE IV PRN (08:33)
[2018-01-10] MEDS ORDERED: ONDANSETRON 4 MG/2 ML VIAL IVP PRN (08:33)
[2018-01-10] MEDS ORDERED: ARTIFICIAL TEARS-HYPROMELLOSE DROPS 15 ML BTL BOTH EYES PRN (08:42)
[2018-01-10] MEDS ORDERED: NYSTATIN 100,000 UNIT/ML SUSP 500,000 UNIT/5 ML CUP PO PRN (08:42)
[2018-01-10] MEDS ORDERED: IBUPROFEN 800 MG TAB PO PRN (08:42)
[2018-01-10] MEDS ORDERED: SODIUM CHLORIDE 0.9% 1,000 ML IV SCH (08:45)
[2018-01-10] MEDS ORDERED: SODIUM CHLORIDE 0.9% 500 ML IV ONE (08:58)
[2018-01-10] MEDS ORDERED: TAMSULOSIN 0.4 MG CAP.ER.24H PO SCH (09:00)
[2018-01-10] MEDS: OXYBUTYNIN CHLORIDE 5 MG TAB PO SCH ×2 (09:42→20:11)
[2018-01-10] MEDS: buPROPion XL 300 MG TAB.ER.24H PO SCH (09:42)
[2018-01-10] MEDS: GABAPENTIN 400 MG CAP PO SCH ×4 (09:42→23:23)
[2018-01-10] MEDS: SODIUM CHLORIDE 0.9% 1,000 ML IV SCH ×2 (10:27→16:49)
[2018-01-10 11:49] LABS: Glucose,Whole Blood 92 mg/dL (75-99)
[2018-01-10] MEDS: ONDANSETRON 4 MG/2 ML VIAL IVP PRN ×2 (11:50→20:11)
[2018-01-10 14:12] VITALS: BMI 28.3
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
[2018-01-10] MEDS: MORPHINE SULFATE 2 MG/ML SYRINGE IV PRN ×2 (16:47→21:07)
[2018-01-10 17:15] LABS: Glucose,Whole Blood 93 mg/dL (75-99)
[2018-01-10] MEDS: LATANOPROST 0.005% OPHTH DROPS 2.5 ML BTL BOTH EYES SCH (21:09)
[2018-01-11] MEDS: MORPHINE SULFATE 2 MG/ML SYRINGE IV PRN ×5 (01:28→21:57)
[2018-01-11] MEDS: SODIUM CHLORIDE 0.9% 1,000 ML IV SCH ×3 (05:39→16:59)
[2018-01-11] MEDS: LEVOTHYROXINE 100 MCG TAB PO SCH (06:15)
[2018-01-11] MEDS: ONDANSETRON 4 MG/2 ML VIAL IVP PRN ×3 (08:10→19:15)
[2018-01-11 09:21] LABS: Anisocytosis Slight; Basophils % (A) 0 %; Eosinophils # (A) 0.1 k/uL (0-0.7); Eosinophils % (A) 1 %; HCT 32.1 % (34.0-46.0); HGB 10.3 gm/dL (11.4-16.0); Hypochromasia Slight; Lymphocytes # (A) 1.5 k/uL (1.0-4.8); Lymphocytes % (A) 22 %; MCH 26.5 pg (25.0-35.0); MCHC 32.1 g/dL (31.0-37.0); MCV 82.5 fL (80.0-100.0); Mean Platelet Volume 7.9; Monocytes # (A) 0.4 k/uL (0-1.0); Monocytes % (A) 6 %; Neutrophils # (A) 4.8 k/uL (1.3-7.7); Neutrophils % (A) 70 %; Platelet Count 233 k/uL (150-450); RBC 3.89 m/uL (3.80-5.40); RDW 16.3 % (11.5-15.5); WBC 6.9 k/uL (3.8-10.6)
[2018-01-11] MEDS: GABAPENTIN 400 MG CAP PO SCH ×3 (09:44→21:57)
[2018-01-11] MEDS: buPROPion XL 300 MG TAB.ER.24H PO SCH (09:44)
[2018-01-11] MEDS: OXYBUTYNIN CHLORIDE 5 MG TAB PO SCH ×2 (09:44→20:30)
[2018-01-11 09:48] LABS: ALT 25 U/L (9-52); AST 19 U/L (14-36); Albumin 3.3 g/dL (3.5-5.0); Alkaline Phosphatase 97 U/L (38-126); Anion Gap 10 mmol/L; Blood Urea Nitrogen 14 mg/dL (7-17); Calcium 8.5 mg/dL (8.4-10.2); Carbon Dioxide 23 mmol/L (22-30); Chloride 110 mmol/L (98-107); Glucose 91 mg/dL (74-99); Potassium 4.1 mmol/L (3.5-5.1); Sodium 143 mmol/L (137-145); Total Bilirubin 0.3 mg/dL (0.2-1.3); Total Protein 5.7 g/dL (6.3-8.2)
[2018-01-11 12:17] LABS: Glucose,Whole Blood 81 mg/dL (75-99)
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
[2018-01-11] MEDS: IOPAMIDOL-300 CONTRAST 30 ML VIAL (ORAL USE) PO PRN ×2 (14:56→16:00)
--- NOTE | 2018-01-11 16:55 | CT ---
EXAMINATION TYPE: CT abdomen pelvis wo con DATE OF EXAM: 01/10/2018 COMPARISON: 6 HISTORY: Abdominal pain and distention. CT DLP: 529.2 mGycm Examination of the solid and hollow viscera is limited given the lack of contrast. FINDINGS: LUNG BASES: No evidence for nodule. No evidence for infiltrate. LIVER/GB: Cholecystectomy changes noted. No space-occupying hepatic lesion. PANCREAS: No pancreatic mass identified. No inflammatory process seen. SPLEEN: No evidence for splenomegaly. No intrasplenic lesions seen. ADRENALS: No adrenal nodules identified. No evidence for thickening. KIDNEYS: No evidence for renal mass. No nephrolithiasis. No hydronephrosis. BOWEL: Left-sided ostomy identified. Nonvisualization of the appendix. No evidence of bowel obstructi on. No inflammatory process. Lymph nodes: No evidence for adenopathy greater than 1 cm. Abdominal aorta: Atheromatous changes seen. No evidence for aneurysm. Genital organs: Right sided ovarian cystic lesion measuring 5.2 cm. The uterus is surgically absent. No left adnexal mass seen. Other: Degenerative and postoperative changes lumbar spine. IMPRESSION: 1. Right ovarian cystic lesion is nonspecific and correlation with ultrasound. 2. Resolution of the fluid filled rectum. 3. No visible pancreatitis changes identified at this time. 4. No obstructive change appreciated at this time.
[2018-01-11 17:53] LABS: Glucose,Whole Blood 93 mg/dL (75-99)
[2018-01-11] MEDS: LATANOPROST 0.005% OPHTH DROPS 2.5 ML BTL BOTH EYES SCH (20:30)
--- NOTE | 2018-01-11 21:39 | P.PN ---
Subjective Progress Note Date: 01/11/18 Principal diagnosis: Ileus This is a continuing progress note on a 62-year-old white female essentially admitted for ileus. Surgical consultation is pending. She has had multiple surgeries and probably has element of adhesions. Bowel rest has been somewhat helpful. However, she still feels significant amount of pain. Objective - Vital Signs Vital signs: Vital Signs Temp 98.2 F 01/11/18 21:23 Pulse 76 01/11/18 21:23 Resp 16 01/11/18 21:23 BP 118/63 01/11/18 21:23 Pulse Ox 97 01/11/18 21:23 Intake & Output 01/11/18 01/11/18 01/12/18 06:59 18:59 06:59 Intake Total 1000 750 Output Total 0 Balance 1000 750 Intake: Intake, IV Titration 1000 750 Amount Sodium Chloride 0.9% 1, 1000 750 000 ml @ 125 mls/hr IV . Q8H [facility] Rx#:[id number] Oral 0 Output: Stool 0 Emesis 0 Other: Voiding Method Toilet # Voids 2 3 1 - Constitutional General appearance: Present: average body habitus - EENT Eyes: Absent: abnormal pupil - Neck Neck: Absent: lymphadenopathy - Respiratory Respiratory: bilateral: CTA - Cardiovascular Rhythm: regular Heart sounds: normal: S1, S2 Abnormal Heart Sounds: Absent: S3 Gallop - Gastrointestinal General gastrointestinal: Present: decreased bowel sounds, distended Localized gastrointestinal: rebound: diffuse - Integumentary Integumentary: Present: normal - Labs CBC & Chem 7: 01/11/18 08:59 01/11/18 08:59 Labs: Abnormal Lab Results - Last 24 Hours (Table) 01/11/18 01/11/18 Range/Units 08:59 08:59 Hgb 10.3 L (11.4-16.0) gm/dL Hct 32.1 L (34.0-46.0) % RDW 16.3 H (11.5-15.5) % Chloride 110 H (98-107) mmol/L Creatinine 0.46 L (0.52-1.04) mg/dL Total Protein 5.7 L (6.3-8.2) g/dL Albumin 3.3 L (3.5-5.0) g/dL Assessment and Plan (1) Abdominal pain Current Visit: Yes Status: Acute Code(s): R10.9 - UNSPECIFIED ABDOMINAL PAIN SNOMED Code(s): 46348590 (2) Ileus Current Visit: Yes Status: Acute Code(s): K56.7 - ILEUS, UNSPECIFIED SNOMED Code(s): 611485160 (3) Nausea and vomiting Current Visit: Yes Status: Acute Code(s): R11.2 - NAUSEA WITH VOMITING, UNSPECIFIED SNOMED Code(s): 01154466 (4) Depression Current Visit: No Status: Chronic Code(s): F32.9 - MAJOR DEPRESSIVE DISORDER , SINGLE EPISODE, UNSPECIFIED SNOMED Code(s): 50723501 Plan: Continue to follow with stomatic treatment and bowel rest. Check CBC and CMP in the a.m. We will continue to follow with surgical evaluation. Time with Patient: Less than 30
[2018-01-11] MEDS ORDERED: ONDANSETRON 4 MG/2 ML VIAL ONE (23:30)
[2018-01-12 01:17] LABS: Glucose,Whole Blood 92 mg/dL (75-99)
[2018-01-12] MEDS ORDERED: MORPHINE SULFATE 2 MG/ML SYRINGE ONE (03:00)
[2018-01-12] MEDS ORDERED: ONDANSETRON 4 MG/2 ML VIAL ONE ×2 (03:00→12:47)
[2018-01-12 05:39] LABS: Glucose,Whole Blood 91 mg/dL (75-99)
[2018-01-12] MEDS: SODIUM CHLORIDE 0.9% 1,000 ML IV SCH ×3 (05:51→19:10)
[2018-01-12] MEDS: LEVOTHYROXINE 100 MCG TAB PO SCH (05:51)
[2018-01-12] MEDS: MORPHINE SULFATE 2 MG/ML SYRINGE IV PRN ×4 (06:57→20:53)
[2018-01-12 07:43] LABS: Anisocytosis Slight; Basophils % (A) 0 %; Eosinophils # (A) 0.1 k/uL (0-0.7); Eosinophils % (A) 2 %; HCT 32.3 % (34.0-46.0); HGB 10.3 gm/dL (11.4-16.0); Hypochromasia Slight; Lymphocytes # (A) 1.5 k/uL (1.0-4.8); Lymphocytes % (A) 21 %; MCH 26.5 pg (25.0-35.0); MCHC 31.9 g/dL (31.0-37.0); MCV 83.2 fL (80.0-100.0); Monocytes # (A) 0.5 k/uL (0-1.0); Monocytes % (A) 7 %; Neutrophils % (A) 70 %; Platelet Count 221 k/uL (150-450); RBC 3.88 m/uL (3.80-5.40); RDW 16.2 % (11.5-15.5); WBC 7.2 k/uL (3.8-10.6)
[2018-01-12 08:04] LABS: ALT 25 U/L (9-52); AST 19 U/L (14-36); Albumin 3.4 g/dL (3.5-5.0); Alkaline Phosphatase 95 U/L (38-126); Anion Gap 11 mmol/L; Blood Urea Nitrogen 9 mg/dL (7-17); Calcium 8.9 mg/dL (8.4-10.2); Carbon Dioxide 24 mmol/L (22-30); Chloride 107 mmol/L (98-107); Glucose 83 mg/dL (74-99); Potassium 3.8 mmol/L (3.5-5.1); Sodium 142 mmol/L (137-145); Total Bilirubin 0.3 mg/dL (0.2-1.3); Total Protein 5.8 g/dL (6.3-8.2)
--- NOTE | 2018-01-12 08:34 | P.PN ---
Subjective Principal diagnosis: Ileus This is a continue progress on a 62-year-old white female essentially admitted for probable ileus. She has multiple surgeries in the past. However, recent computed tomography scan does not show any type of complete obstruction, which is fortunate. She still contains significant pain. We will slowly back off on her pain control. No significant fever or chills stated. Objective - Vital Signs Vital signs: Vital Signs Temp 98.4 F 01/12/18 05:49 Pulse 72 01/12/18 05:49 Resp 16 01/12/18 05:49 BP 120/62 01/12/18 05:49 Pulse Ox 98 01/12/18 05:49 Intake & Output 01/11/18 01/12/18 01/12/18 18:59 06:59 18:59 Intake Total 750 Output Total 0 0 Balance 750 0 Intake: Intake, IV Titration 750 Amount Sodium Chloride 0.9% 1, 750 000 ml @ 125 mls/hr IV . Q8H [facility] Rx#:[id number] Oral 0 Output: Stool 0 0 Emesis 0 Other: Voiding Method Toilet Toilet # Voids 3 2 - Constitutional General appearance: Present: average body habitus - EENT Eyes: Absent: abnormal pupil - Respiratory Respiratory: bilateral: CTA - Cardiovascular Rhythm: regular Heart sounds: normal: S1, S2 Abnormal Heart Sounds: Absent: S3 Gallop - Gastrointestinal General gastrointestinal: Present: decreased bowel sounds, soft - Musculoskeletal Musculoskeletal: Present: generalized weakness - Labs CBC & Chem 7: 01/12/18 07:16 01/12/18 07:16 Labs: Abnormal Lab Results - Last 24 Hours (Table) 01/11/18 01/11/18 01/12/18 Range/Units 08:59 08:59 07:16 Hgb 10.3 L (11.4-16.0) gm/dL Hct 32.1 L (34.0-46.0) % RDW 16.3 H (11.5-15.5) % Chloride 110 H (98-107) mmol/L Creatinine 0.46 L 0.51 L (0.52-1.04) mg/dL Total Protein 5.7 L 5.8 L (6.3-8.2) g/dL Albumin 3.3 L 3.4 L (3.5-5.0) g/dL 01/12/18 Range/Units 07:16 Hgb 10.3 L (11.4-16.0) gm/dL Hct 32.3 L (34.0-46.0) % RDW 16.2 H (11.5-15.5) % Chloride (98-107) mmol/L Creatinine (0.52-1.04) mg/dL Total Protein (6.3-8.2) g/dL Albumin (3.5-5.0) g/dL Assessment and Plan (1) Abdominal pain Current Visit: Yes Status: Acute Code(s): R10.9 - UNSPECIFIED ABDOMINAL PAIN SNOMED Code(s): 68956651 (2) Ileus Current Visit: Yes Status: Acute Code(s): K56.7 - ILEUS, UNSPECIFIED SNOMED Code(s): 483717136 (3) Nausea and vomiting Current Visit: Yes Status: Acute Code(s): R11.2 - NAUSEA WITH VOMITING, UNSPECIFIED SNOMED Code(s): 80565594 (4) Depression Current Visit: No Status: Chronic Code(s): F32.9 - MAJOR DEPRESSIVE DISORDER , SINGLE EPISODE, UNSPECIFIED SNOMED Code(s): 45980059 Plan: Probable increase in diet per surgery. Check CBC and CMP in a.m. Decrease pain medication at this time. Time with Patient: Less than 30
[2018-01-12] MEDS: ONDANSETRON 4 MG/2 ML VIAL IVP PRN ×3 (08:43→20:53)
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
[2018-01-12 12:09] LABS: Glucose,Whole Blood 82 mg/dL (75-99)
[2018-01-12] MEDS: GABAPENTIN 400 MG CAP PO SCH ×4 (12:21→21:29)
[2018-01-12] MEDS: OXYBUTYNIN CHLORIDE 5 MG TAB PO SCH ×2 (12:21→21:29)
[2018-01-12] MEDS: buPROPion XL 300 MG TAB.ER.24H PO SCH (12:21)
[2018-01-12] MEDS: LATANOPROST 0.005% OPHTH DROPS 2.5 ML BTL BOTH EYES SCH (20:32)
[2018-01-12 23:33] LABS: Glucose,Whole Blood 101 mg/dL (75-99)
[2018-01-13] MEDS: oxyCODONE-APAP 5-325MG 1 EACH TAB PO PRN ×2 (01:39→23:12)
[2018-01-13] MEDS: ONDANSETRON 4 MG/2 ML VIAL IVP PRN ×4 (01:40→23:11)
[2018-01-13] MEDS: SODIUM CHLORIDE 0.9% 1,000 ML IV SCH ×3 (05:29→23:00)
[2018-01-13 05:33] LABS: Glucose,Whole Blood 89 mg/dL (75-99)
[2018-01-13] MEDS: LEVOTHYROXINE 100 MCG TAB PO SCH (06:10)
[2018-01-13 08:11] LABS: ALT 29 U/L (9-52); AST 20 U/L (14-36); Albumin 3.7 g/dL (3.5-5.0); Alkaline Phosphatase 96 U/L (38-126); Anion Gap 8 mmol/L; Blood Urea Nitrogen 8 mg/dL (7-17); Calcium 9.4 mg/dL (8.4-10.2); Carbon Dioxide 25 mmol/L (22-30); Chloride 108 mmol/L (98-107); Glucose 90 mg/dL (74-99); Potassium 3.8 mmol/L (3.5-5.1); Sodium 141 mmol/L (137-145); Total Bilirubin 0.2 mg/dL (0.2-1.3); Total Protein 6.1 g/dL (6.3-8.2)
--- NOTE | 2018-01-13 08:12 | P.PN ---
Subjective Principal diagnosis: Ileus This is a continue progress on a 62-year-old white female essentially admitted for small bowel partial obstruction. This is now seemingly resolved. The patient seems much more comfortable this morning. She would like to try to advance diet today. Otherwise, still significant nausea is stated. Objective - Vital Signs Vital signs: Vital Signs Temp 97.9 F 01/13/18 05:23 Pulse 65 01/13/18 05:23 Resp 16 01/13/18 05:23 BP 118/56 01/13/18 05:23 Pulse Ox 96 01/13/18 05:23 Intake & Output 01/12/18 01/13/18 01/13/18 18:59 06:59 18:59 Intake Total 480 875 Output Total 0 0 Balance 480 875 Intake: Intake, IV Titration 875 Amount Sodium Chloride 0.9% 1, 875 000 ml @ 125 mls/hr IV . Q8H ANA MARÍA Rx#:[id number] Oral 480 Output: Stool 0 0 Other: Voiding Method Toilet Toilet # Voids 2 1 - Constitutional General appearance: Present: average body habitus - EENT Eyes: Absent: abnormal pupil - Respiratory Respiratory: bilateral: CTA - Cardiovascular Rhythm: regular Heart sounds: normal: S1, S2 Abnormal Heart Sounds: Absent: S3 Gallop - Gastrointestinal General gastrointestinal: Present: decreased bowel sounds, soft - Integumentary Integumentary: Present: normal - Neurologic Neurologic: Present: CNII-XII intact - Labs CBC & Chem 7: 01/12/18 07:16 01/12/18 07:16 Labs: Abnormal Lab Results - Last 24 Hours (Table) 01/12/18 Range/Units 23:32 POC Glucose (mg/dL) 101 H (75-99) mg/dL Assessment and Plan (1) Abdominal pain Current Visit: Yes Status: Acute Code(s): R10.9 - UNSPECIFIED ABDOMINAL PAIN SNOMED Code(s): 52802009 (2) Ileus Current Visit: Yes Status: Acute Code(s): K56.7 - ILEUS, UNSPECIFIED SNOMED Code(s): 541957408 (3) Nausea and vomiting Current Visit: Yes Status: Acute Code(s): R11.2 - NAUSEA WITH VOMITING, UNSPECIFIED SNOMED Code(s): 09798953 (4) Depression Current Visit: No Status: Chronic Code(s): F32.9 - MAJOR DEPRESSIVE DISORDER , SINGLE EPISODE, UNSPECIFIED SNOMED Code(s): 11508333 Plan: Clinically she is improving. Question need to add Reglan if necessary. Check CMP in a.m. Advance diet per surgery. Time with Patient: Less than 30
[2018-01-13] MEDS: MORPHINE SULFATE 2 MG/ML SYRINGE IV PRN ×2 (09:19→16:52)
[2018-01-13] MEDS: buPROPion XL 300 MG TAB.ER.24H PO SCH (09:48)
[2018-01-13] MEDS: GABAPENTIN 400 MG CAP PO SCH ×3 (09:49→23:00)
[2018-01-13] MEDS: OXYBUTYNIN CHLORIDE 5 MG TAB PO SCH ×2 (09:49→23:00)
[2018-01-13 12:00] LABS: Glucose,Whole Blood 90 mg/dL (75-99)
[2018-01-13] MEDS: METOCLOPRAMIDE 5 MG/ML 2 ML VIAL IVP SCH ×2 (12:44→16:44)
--- NOTE | 2018-01-13 13:02 | P.PN ---
Progress Note - Text Progress Note Date: 01/13/18 The patient resting in her bed. She has some umbilical pain. She is complaining that her pain meds have increased induration. She is tolerating her diet. She's had no significant nausea. On exam her vital signs are stable. Her abdomen soft. There is some gas in her colostomy bag. Abdominal pain resolving. There is no surgical intervention planned. There is no evidence of any bowel obstruction. The patient will have her diet advanced. She'll be discharged home per Dr. Pressley.
[2018-01-13] MEDS ORDERED: TRIAMCINOLONE ACET 0.1% OINTMENT 15 GM TUBE TOPICAL PRN (13:52)
--- NOTE | 2018-01-13 14:07 | P.HPIM ---
History of Present Illness H&P Date: 01/10/18 Chief Complaint: Abdominal pain. This is 62-year-old white female who is fairly well-known to my practice with history of multiple surgeries. The patient has a colostomy. The patient states significant abdominal pain for the last several days. The patient was unable to tolerate diet appropriately. She's had multiple surgeries in the past. Computed tomography scan of the abdomen and pelvis does show ileus. Due to the clinical presentation and her multiple surgeries, she is appropriately admitted for treatment. Review of Systems Constitutional: Denies chills, Denies fever Eyes: denies blurred vision, denies pain Ears, nose, mouth and throat: Denies headache, Denies sore throat Cardiovascular: Denies chest pain, Denies shortness of breath Respiratory: Denies cough Gastrointestinal: Reports as per HPI, Reports abdominal pain Genitourinary: Denies dysuria, Denies hematuria Musculoskeletal: Denies myalgias Past Medical History Past Medical History: Chest Pain / Angina, Eye Disorder, Fibromyalgia, GERD/ Reflux, Memory Impairment, Osteoarthritis (OA), Pneumonia, Seizure Disorder, Thyroid Disorder Additional Past Medical History / Comment(s): Brain Aneurysm. FREYA RESOLVED. 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 MINOR, OCC Short term memory loss. DDD Cervical, Thoracic, Lumbar levels. Chronic Pain syndrome in Back. HX Breast CA. Proctosigmoiditis w/ Colostomy. Diverticulosis. Neuropathy kalyani legs/feet. Migraines. Veritgo. Glaucoma kalyani. KEISHA-BARRE, septic shock History of Any Multi-Drug Resistant Organisms: C-DIFF Date of last positivie culture/infection: 2010 MDRO Source:: stool Past Surgical History: Adenoidectomy, Back Surgery, Bladder Surgery, Bowel Resection, Breast Surgery, Cholecystectomy, Heart Catheterization, Hysterectomy , Joint Replacement, Tonsillectomy Additional Past Surgical History / Comment(s): 12/06/13 Cardiac cath-normal. cervical Fusion, Back surgury-rods/screws/cage, partial bowel resection with colostomy, bilateral mastectomies, total RIGHT KNEE REPLACEMENT, L knee arthroscopy, bladder suspension, cataracts Past Anesthesia/Blood Transfusion Reactions: Family History of Problems w/ Anesthesia, Postoperative Nausea & Vomiting (PONV) Additional Past Anesthesia/Blood Transfusion Reaction / Comment(s): FAMILY HAS PONV. Past Psychological History: Anxiety, Depression Smoking Status: Never smoker Past Alcohol Use History: None Reported Past Drug Use History: None Reported - Past Family History Father Family Medical History: Cancer, Musculoskeletal Disorder, Neurologic Disorder Additional Family Medical History / Comment(s): Father at 77 yrs. He had parkinson's dx. Mother Family Medical History: Cancer Additional Family Medical History / Comment(s): Mother had breast cancer. She is alive and 82 yrs old. Medications and Allergies Home Medications Medication Instructions Recorded Confirmed Type Omeprazole [PriLOSEC] 20 mg PO AC-BID 15 Days capsule. 02/13/15 02/04/17 Rx Gabapentin 800 mg PO TID 09/04/15 02/04/17 History Oxybutynin Chloride [Ditropan] 10 mg PO BID 11/28/15 02/04/17 History Triamcinolone 0.1% Cream [Kenalog] 1 applic TOPICAL BID 01/31/16 02/04/17 History Carboxymethylcellulose Sodium 1 drop BOTH EYES BID PRN 06/30/16 02/04/17 History [Refresh Tears] Ibuprofen [Motrin] 800 mg PO Q8H PRN 06/30/16 02/04/17 History Levothyroxine Sodium [Synthroid] 100 mcg PO DAILY 06/30/16 02/04/17 History Tamsulosin HCl [Flomax] 0.8 mg PO BID 06/30/16 02/04/17 History oxyCODONE-APAP 5-325MG [Percocet 1 tab PO BID PRN 06/30/16 02/04/17 History 5-325 mg] Ondansetron Odt [Zofran ODT] 4 mg PO Q6H PRN 02/04/17 02/04/17 History Sulfamethox-Tmp 800-160Mg [Bactrim 1 tab PO Q12HR 02/04/17 02/04/17 History DS 800-160 mg] buPROPion HCL [Wellbutrin XL] 300 mg PO DAILY 02/04/17 02/04/17 History metroNIDAZOLE [Flagyl] 500 mg PO QID 02/04/17 02/04/17 History Allergies Allergy/AdvReac Type Severity Reaction Status Date / Time adhesive tape Allergy Rash/Hives Verified 02/04/17 17:06 ciprofloxacin [From Cipro] Allergy Rash/Hives Verified 02/04/17 17:06 ciprofloxacin HCl Allergy Rash/Hives Verified 02/04/17 17:06 [From Cipro] colesevelam HCl Allergy Rash/Hives Verified 02/04/17 17:06 [From WelChol] latex Allergy Rash/Hives Verified 02/04/17 17:06 levofloxacin [From Levaquin] Allergy Rash/Hives Verified 02/04/17 17:06 prochlorperazine edisylate Allergy Swelling Verified 02/04/17 17:06 [From Compazine] prochlorperazine maleate Allergy Swelling Verified 02/04/17 17:06 [From Compazine] nitroglycerin AdvReac Dyspnea Verified 02/04/17 17:06 tramadol HCl [From Ultram] AdvReac WEAKNESS, Verified 02/04/17 17:06 DIZZYNESS zolpidem [From Ambien] AdvReac SLEEP Verified 02/04/17 17:06 WALKING COMBID Allergy Rash/Hives Uncoded 02/04/17 17:06 Physical Exam Vitals: Vital Signs Temp Pulse Resp BP Pulse Ox 01/10/18 07:07 81 18 168/67 99 01/10/18 05:59 85 18 121/57 96 01/10/18 05:30 98.5 F 101 H 18 93/73 97 Intake and Output 01/09/18 01/10/18 01/10/18 22:59 06:59 14:59 Other: Weight 72.575 kg - Constitutional General appearance: no acute distress - EENT Eyes: EOMI - Neck Neck: no lymphadenopathy - Respiratory Respiratory: bilateral: CTA - Cardiovascular Rhythm: regular Heart sounds: normal: S1, S2 Abnormal Heart Sounds: no S3 Gallop - Gastrointestinal General gastrointestinal: decreased bowel sounds, soft, no splenomegaly, tenderness - Integumentary Integumentary: no cyanotic - Neurologic Neurologic: CNII-XII intact - Psychiatric Psychiatric: A&O x's 3, intact judgment & insight Results CBC & Chem 7: 01/10/18 05:45 01/10/18 05:45 Labs: Abnormal Lab Results - Last 24 Hours (Table) 01/10/18 01/10/18 01/10/18 Range/Units 05:45 05:45 05:45 WBC 11.5 H (3.8-10.6) k/uL RDW 16.5 H (11.5-15.5) % Neutrophils # 9.9 H (1.3-7.7) k/uL Lymphocytes # 0.8 L (1.0-4.8) k/uL APTT 21.6 L (22.0-30.0) sec Chloride 108 H (98-107) mmol/L BUN 19 H (7-17) mg/dL Glucose 150 H (74-99) mg/dL Alkaline Phosphatase 137 H (38-126) U/L Assessment and Plan (1) Abdominal pain Current Visit: Yes Status: Acute Code(s): R10.9 - UNSPECIFIED ABDOMINAL PAIN SNOMED Code(s): 02957120 (2) Ileus Current Visit: Yes Status: Acute Code(s): K56.7 - ILEUS, UNSPECIFIED SNOMED Code(s): 105227880 (3) Nausea and vomiting Current Visit: Yes Status: Acute Code(s): R11.2 - NAUSEA WITH VOMITING, UNSPECIFIED SNOMED Code(s): 94073808 (4) Depression Current Visit: No Status: Chronic Code(s): F32.9 - MAJOR DEPRESSIVE DISORDER , SINGLE EPISODE, UNSPECIFIED SNOMED Code(s): 51850928 Plan: We'll go ahead and give bowel rest with nothing by mouth and IV hydration. Consult general surgery. Check CBC and CMP in a.m. per Reconcile home medications once nothing by mouth is resolved. See orders otherwise. Prognosis is guarded at this time.
[2018-01-13] MEDS: PANTOPRAZOLE 40 MG TABLET PO SCH (16:44)
[2018-01-13 17:12] LABS: Glucose,Whole Blood 69 mg/dL (75-99)
[2018-01-13 17:30] LABS: Glucose,Whole Blood 81 mg/dL (75-99)
[2018-01-13 22:47] VITALS: PULSE 77
[2018-01-13] MEDS: LATANOPROST 0.005% OPHTH DROPS 2.5 ML BTL BOTH EYES SCH (23:01)
[2018-01-14 00:22] LABS: Glucose,Whole Blood 83 mg/dL (75-99)
[2018-01-14] MEDS: METOCLOPRAMIDE 5 MG/ML 2 ML VIAL IVP SCH ×3 (00:49→11:00)
[2018-01-14] MEDS: MORPHINE SULFATE 2 MG/ML SYRINGE IV PRN (03:07)
[2018-01-14] MEDS: SODIUM CHLORIDE 0.9% 1,000 ML IV SCH ×2 (04:47→11:00)
[2018-01-14 05:41] VITALS: BP 136/78; RESP 16; TEMP 99
[2018-01-14 06:02] LABS: Glucose,Whole Blood 92 mg/dL (75-99)
[2018-01-14] MEDS: LEVOTHYROXINE 100 MCG TAB PO SCH (06:02)
--- NOTE | 2018-01-14 08:11 | P.DS ---
Providers Date of admission: 01/10/18 08:33 Attending physician: Jaskaran Pressley Consults: 01/10/18 08:33 Consult Physician Stat Consulting Provider: Sid Brown Consult Reason/Comments: Ileus Do you want consulting provider notified?: Yes Primary care physician: Jaskaran Pressley - Discharge Diagnosis(es) (1) Abdominal pain Current Visit: Yes Status: Acute (2) Ileus Current Visit: Yes Status: Acute (3) Nausea and vomiting Current Visit: Yes Status: Acute (4) Depression Current Visit: No Status: Chronic Hospital Course: The patient was essentially admitted for ileus. The patient was kept nothing by mouth and then advance diet. Surgery was consulted and repeat computed tomography scan did not show worsening of symptomatology. There is no surgical procedure necessary at this time. She is status post colonoscopy. She is not tolerating clear liquids and will advance diet to solid food. If she tolerates this well with frequent discharged to her follow-up with me in about 5-7 days. Patient Condition at Discharge: Fair Plan - Discharge Summary Discharge Rx Participant: No New Discharge Prescriptions: New Triamcinolone 0.1% Cream [Kenalog] 1 applic TOPICAL DAILY #400 gm Continue Omeprazole [PriLOSEC] 20 mg PO AC-BID 15 Days capsule. Gabapentin 800 mg PO TID Oxybutynin Chloride [Ditropan] 10 mg PO BID Ibuprofen [Motrin] 800 mg PO Q8H PRN PRN Reason: Pain Levothyroxine Sodium [Synthroid] 100 mcg PO DAILY oxyCODONE-APAP 5-325MG [Percocet 5-325 mg] 1 tab PO BID PRN PRN Reason: Pain Tamsulosin HCl [Flomax] 0.8 mg PO BID PRN PRN Reason: BEFORE & AFTER SURGERY Carboxymethylcellulose Sodium [Refresh Tears] 1 drop BOTH EYES BID PRN PRN Reason: Dry Eye(S) buPROPion HCL [Wellbutrin XL] 300 mg PO DAILY Nystatin 100,000 Unit/ml Susp [Mycostatin Oral Susp] 500,000 units PO QID PRN PRN Reason: THRUSH Equate Laxative 100 mg PO QAM Bimatoprost [Lumigan .01% Ophth Soln] 1 drop BOTH EYES HS Discharge Medication List Omeprazole [PriLOSEC] 20 mg PO AC-BID 15 Days capsule. 02/13/15 [Rx] Gabapentin 800 mg PO TID 09/04/15 [History] Oxybutynin Chloride [Ditropan] 10 mg PO BID 11/28/15 [History] Carboxymethylcellulose Sodium [Refresh Tears] 1 drop BOTH EYES BID PRN 06/30/16 [History] Ibuprofen [Motrin] 800 mg PO Q8H PRN 06/30/16 [History] Levothyroxine Sodium [Synthroid] 100 mcg PO DAILY 06/30/16 [History] Tamsulosin HCl [Flomax] 0.8 mg PO BID PRN 06/30/16 [History] oxyCODONE-APAP 5-325MG [Percocet 5-325 mg] 1 tab PO BID PRN 06/30/16 [History] buPROPion HCL [Wellbutrin XL] 300 mg PO DAILY 02/04/17 [History] Bimatoprost [Lumigan .01% Ophth Soln] 1 drop BOTH EYES HS 01/10/18 [History] Equate Laxative 100 mg PO QAM 01/10/18 [History] Nystatin 100,000 Unit/ml Susp [Mycostatin Oral Susp] 500,000 units PO QID PRN [History] Triamcinolone 0.1% Cream [Kenalog] 1 applic TOPICAL DAILY #400 gm 01/14/18 [Rx] Follow up Appointment(s)/Referral(s): Jaskaran Pressley MD [Primary Care Provider] - 1-2 days
[2018-01-14] MEDS: GABAPENTIN 400 MG CAP PO SCH (10:02)
[2018-01-14] MEDS: OXYBUTYNIN CHLORIDE 5 MG TAB PO SCH (10:02)
[2018-01-14] MEDS: PANTOPRAZOLE 40 MG TABLET PO SCH (10:02)
[2018-01-14] MEDS: buPROPion XL 300 MG TAB.ER.24H PO SCH (10:02)
[2018-01-14] MEDS: oxyCODONE-APAP 5-325MG 1 EACH TAB PO PRN (11:00)
[2018-01-14 11:50] LABS: Glucose,Whole Blood 87 mg/dL (75-99)
== END 2018-01-14 13:10 | disposition home or self-care (01) | DRG 389 ==
LOC: EC 05:26 → 5MS5E 08:33
PROVIDERS: ADMIT Family Medicine; ATTEND Family Medicine
DX: K56.7 Ileus, unspecified (principal); F11.20 Opioid dependence, uncomplicated; M79.7 Fibromyalgia; K21.9 Gastro-esophageal reflux disease without esophagitis; G40.909 Epilepsy, unspecified, not intractable, without status epilepticus; M50.30 Other cervical disc degeneration, unspecified cervical region; E86.0 Dehydration; G89.4 Chronic pain syndrome; F32.9 Major depressive disorder, single episode, unspecified; F41.9 Anxiety disorder, unspecified; H40.9 Unspecified glaucoma; N31.9 Neuromuscular dysfunction of bladder, unspecified; Z96.1 Presence of intraocular lens; E07.9 Disorder of thyroid, unspecified; Z96.652 Presence of left artificial knee joint; Z90.710 Acquired absence of both cervix and uterus; Z90.49 Acquired absence of other specified parts of digestive tract; Z86.19 Personal history of other infectious and parasitic diseases; Z79.899 Other long term (current) drug therapy; Z88.8 Allergy status to other drugs, medicaments and biological substances; Z88.1 Allergy status to other antibiotic agents; Z91.040 Latex allergy status; Z82.0 Family history of epilepsy and other diseases of the nervous system; Z80.3 Family history of malignant neoplasm of breast; Z85.3 Personal history of malignant neoplasm of breast; Z90.13 Acquired absence of bilateral breasts and nipples; Z93.3 Colostomy status; Z79.890 Hormone replacement therapy
CPT/HCPCS: 36415; 74018; 74176; 74177; 80053; 82150; 82550; 82553; 83605; 83690; 84484; 85025; 85610; 85730; 87324; 96361; 96374; 96375; 96376; 99285

== ENCOUNTER → 2018-04-05 | Outpatient (CLI) | payer MEDICARE ==
--- NOTE | 2018-04-05 13:37 | XR ---
EXAMINATION TYPE: XR Hip Complete LT DATE OF EXAM: 04/05/2018 COMPARISON: NONE HISTORY: Pain TECHNIQUE: 2 views submitted FINDINGS: There is no evidence of erosive change or acute fracture. There is a moderate concentric narrowing of the joint space. Calcifications overlying the pubic rami are noted. No erosive changes. Density reyna g the lateral margin of the acetabulum can be associated with chronic acetabular labral tear. Spina b ifida occulta of the distal sacrococcygeal junction noted. IMPRESSION: 1. No evidence of acute fracture or dislocation. 2. Arthritic changes with no evidence of erosive change. 3. Correlate for chronic acetabular labral tear.
== END | disposition home or self-care (01) ==
LOC: RADXRMAIN 13:06
PROVIDERS: ATTEND Family Medicine
DX: M16.12 Unilateral primary osteoarthritis, left hip (principal)
CPT/HCPCS: 73502

== ENCOUNTER 2018-06-16 17:43 | Emergency (ER) | payer MEDICARE, OTHER ==
[2018-06-16 18:10] VITALS: BP 102/64; PULSE 103; RESP 16; TEMP 98.8
--- NOTE | 2018-06-16 20:23 | ED ---
Female Urogenital HPI - General Chief complaint: Urogenital Stated complaint: URINE PROBLEMS POST OP Time Seen by Provider: 06/16/18 20:03 Source: patient, RN notes reviewed, old records reviewed Mode of arrival: ambulatory Limitations: no limitations - History of Present Illness Initial comments: Patient 63-year-old female 1 week post left hip replacement. This was compressed for by Dr. Miner [facility] Patient states that she was then discharged to [facility]. Since that time she's had intermittent urinary retention post anesthesia. Patient reports that she has had to be straight cathed multiple times while at [facility] in the leg. Patient reports that 3 AM she was able to urinate on her own but since that time she's been unable to. She states that she's had this problem in the past post surgery. She follows with Dr. Bradley. Patient states she did call their office today. reports that she is currently being treated for urinary tract infection since her urine did grow signs of infection at the halfway. Patient reports that she does not feel a sensation that she needs her knee. She has had some constipation but did have a bowel movement today. - Related Data Home Medications Medication Instructions Recorded Confirmed Gabapentin 800 mg PO TID 09/04/15 06/16/18 Oxybutynin Chloride [Ditropan] 10 mg PO BID 11/28/15 06/16/18 Carboxymethylcellulose Sodium 1 drop BOTH EYES BID PRN 06/30/16 06/16/18 [Refresh Tears] Ibuprofen [Motrin] 800 mg PO Q8H PRN 06/30/16 06/16/18 Levothyroxine Sodium [Synthroid] 100 mcg PO DAILY 06/30/16 06/16/18 Tamsulosin HCl [Flomax] 0.8 mg PO BID PRN 06/30/16 06/16/18 oxyCODONE-APAP 5-325MG [Percocet 1 tab PO BID PRN 06/30/16 06/16/18 5-325 mg] buPROPion HCL [Wellbutrin XL] 300 mg PO DAILY 02/04/17 06/16/18 Bimatoprost [Lumigan .01% Ophth 1 drop BOTH EYES HS 01/10/18 06/16/18 Soln] Equate Laxative 75 mg PO QAM 01/10/18 06/16/18 Nystatin 100,000 Unit/ml Susp 500,000 units PO QID PRN 01/10/18 06/16/18 [Mycostatin Oral Susp] Cephalexin [Keflex] 500 mg PO Q12HR 06/16/18 06/16/18 Cetirizine HCl [Zyrtec] 10 mg PO DAILY 06/16/18 06/16/18 Cholecalciferol (Vitamin D3) 2,000 unit PO DAILY 06/16/18 06/16/18 [Vitamin D3] Docusate [Colace] 100 mg PO BID 06/16/18 06/16/18 Fluticasone Nasal [place] [Flonase 2 spr EA NOSTRIL HS 06/16/18 06/16/18 Nasal [place]] Sulfacetamide 10% Ophth Soln 5 drops RIGHT EAR BID 06/16/18 06/16/18 [Bleph-10] Previous Rx's Medication Instructions Recorded Omeprazole [PriLOSEC] 20 mg PO AC-BID 15 Days capsule. 02/13/15 Allergies Allergy/AdvReac Type Severity Reaction Status Date / Time adhesive tape Allergy Rash/Hives Verified 06/16/18 20:13 ciprofloxacin [From Cipro] Allergy Rash/Hives Verified 06/16/18 20:13 ciprofloxacin HCl Allergy Rash/Hives Verified 06/16/18 20:13 [From Cipro] colesevelam [From WelChol] Allergy Rash/Hives Verified 06/16/18 20:13 colesevelam HCl Allergy Rash/Hives Verified 06/16/18 20:13 [From WelChol] latex Allergy Rash/Hives Verified 06/16/18 20:13 levofloxacin [From Levaquin] Allergy Rash/Hives Verified 06/16/18 20:13 prochlorperazine edisylate Allergy Swelling Verified 06/16/18 20:13 [From Compazine] prochlorperazine maleate Allergy Swelling Verified 06/16/18 20:13 [From Compazine] vancomycin Allergy Rash/Hives Verified 06/16/18 20:13 nitroglycerin AdvReac Dyspnea Verified 06/16/18 20:13 tramadol HCl [From Ultram] AdvReac WEAKNESS, Verified 06/16/18 20:13 DIZZYNESS zolpidem [From Ambien] AdvReac SLEEP Verified 06/16/18 20:13 WALKING COMBID Allergy Rash/Hives Uncoded 06/16/18 18:10 Review of Systems ROS Statement: Those systems with pertinent positive or pertinent negative responses have been documented in the HPI. ROS Other: All systems not noted in ROS Statement are negative. Past Medical History Past Medical History: Chest Pain / Angina, Eye Disorder, Fibromyalgia, GERD/ Reflux, Memory Impairment, Osteoarthritis (OA), Pneumonia, Seizure Disorder, Thyroid Disorder Additional Past Medical History / Comment(s): Brain Aneurysm. FREYA RESOLVED. 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 MINOR, OCC Short term memory loss. DDD Cervical, Thoracic, Lumbar levels. Chronic Pain syndrome in Back. HX Breast CA. Proctosigmoiditis w/ Colostomy. Diverticulosis. Neuropathy kalyani legs/feet. Migraines. Veritgo. Glaucoma kalyani. KEISHA-BARRE, septic shock History of Any Multi-Drug Resistant Organisms: C-DIFF Date of last positivie culture/infection: 2010 MDRO Source:: stool Past Surgical History: Adenoidectomy, Back Surgery, Bladder Surgery, Bowel Resection, Breast Surgery, Cholecystectomy, Heart Catheterization, Hysterectomy , Joint Replacement, Tonsillectomy Additional Past Surgical History / Comment(s): 12/06/13 Cardiac cath-normal. cervical Fusion, Back surgury-rods/screws/cage, partial bowel resection with colostomy, bilateral mastectomies, total RIGHT KNEE REPLACEMENT, L knee arthroscopy, bladder suspension, cataracts. hip replacedment knee replacement Past Anesthesia/Blood Transfusion Reactions: Family History of Problems w/ Anesthesia, Postoperative Nausea & Vomiting (PONV) Additional Past Anesthesia/Blood Transfusion Reaction / Comment(s): FAMILY HAS PONV. Past Psychological History: Depression Smoking Status: Never smoker Past Alcohol Use History: None Reported Past Drug Use History: None Reported - Past Family History Father Family Medical History: Cancer, Musculoskeletal Disorder, Neurologic Disorder Additional Family Medical History / Comment(s): Father at 77 yrs. He had parkinson's dx. Mother Family Medical History: Cancer Additional Family Medical History / Comment(s): Mother had breast cancer. She is alive and 82 yrs old. General Exam - General Exam Comments Initial Comments: This patient's a 63-year-old female. Alert and oriented. Patient appears in no acute distress. Limitations: no limitations General appearance: alert, in no apparent distress Head exam: Present: atraumatic, normocephalic, normal inspection Eye exam: Present: normal appearance, PERRL, EOMI. Absent: scleral icterus, conjunctival injection, periorbital swelling ENT exam: Present: normal exam, mucous membranes moist Neck exam: Present: normal inspection. Absent: tenderness, meningismus, lymphadenopathy Respiratory exam: Present: normal lung sounds bilaterally. Absent: respiratory distress, wheezes, rales, rhonchi, stridor Cardiovascular Exam: Present: regular rate, normal rhythm, normal heart sounds. Absent: systolic murmur, diastolic murmur, rubs, gallop, clicks GI/Abdominal exam: Present: soft, tenderness (Distended lower abdomen, suprapubic tenderness.), normal bowel sounds. Absent: distended, guarding, rebound, rigid Extremities exam: Present: normal inspection Back exam: Present: normal inspection Neurological exam: Present: alert, oriented X3, CN II-XII intact Psychiatric exam: Present: normal affect, normal mood Skin exam: Present: warm, dry, intact, normal color. Absent: rash Course Vital Signs 06/16/18 18:06 Temperature 98.8 F Pulse Rate 103 H Respiratory 16 Rate Blood Pressure 102/64 O2 Sat by Pulse 99 Oximetry Medical Decision Making - Medical Decision Making Chart completed on paper charting - Lab Data Lab Results 06/16/18 Range/Units 21:15 Urine Color Light Yellow Urine Appearance Clear (Clear) Urine pH 6.0 (5.0-8.0) Ur Specific [place] 1.005 (1.001-1.035) Urine Protein Negative (Negative) Urine Glucose (UA) Negative (Negative) Urine Ketones Negative (Negative) Urine Blood Negative (Negative) Urine Nitrite Negative (Negative) Urine Bilirubin Negative (Negative) Urine Urobilinogen <2.0 (<2.0) mg/dL Ur Leukocyte Esterase Negative (Negative) Disposition Clinical Impression: Urinary retention Disposition: HOME SELF-CARE Condition: Good Is patient prescribed a controlled substance at d/c from ED?: No Referrals: Jaskaran Pressley MD [Primary Care Provider] - 1-2 days
[2018-06-16 23:39] LABS: Appearance,Urine Clear (Clear); Bilirubin,Urine Negative (Negative); Blood,Urine Negative (Negative); Color,Urine Light Yellow; Glucose,Urine (UA) Negative (Negative); Ketones,Urine Negative (Negative); Leukocyte Esterase,Urine Negative (Negative); Nitrite,Urine Negative (Negative); Protein,Urine Negative (Negative); Specific Gravity,Urine 1.005 (1.001-1.035); Urobilinogen,Urine <2.0 mg/dL (<2.0)
== END 2018-06-16 22:10 | disposition home or self-care (01) ==
LOC: EC 17:43
DX: N99.89 Other postprocedural complications and disorders of genitourinary system (principal); R14.0 Abdominal distension (gaseous); K59.00 Constipation, unspecified; N39.0 Urinary tract infection, site not specified; M79.7 Fibromyalgia; G40.909 Epilepsy, unspecified, not intractable, without status epilepticus; G62.9 Polyneuropathy, unspecified; E07.9 Disorder of thyroid, unspecified; F32.9 Major depressive disorder, single episode, unspecified; H40.9 Unspecified glaucoma; G89.29 Other chronic pain; M19.90 Unspecified osteoarthritis, unspecified site; Z88.1 Allergy status to other antibiotic agents; Z88.5 Allergy status to narcotic agent; Z88.8 Allergy status to other drugs, medicaments and biological substances; Z91.040 Latex allergy status; Z91.048 Other nonmedicinal substance allergy status; Z79.51 Long term (current) use of inhaled steroids; Z79.899 Other long term (current) drug therapy; Z98.1 Arthrodesis status; Z96.651 Presence of right artificial knee joint; Z96.642 Presence of left artificial hip joint; Z87.19 Personal history of other diseases of the digestive system; Z93.3 Colostomy status; Z98.890 Other specified postprocedural states; Z90.49 Acquired absence of other specified parts of digestive tract; Z90.13 Acquired absence of bilateral breasts and nipples
CPT/HCPCS: 51702; 81003; 99283

== ENCOUNTER → 2018-08-15 | Outpatient (CLI) | payer MEDICARE, OTHER ==
--- NOTE | 2018-08-16 10:37 | MM ---
Reason for exam: screening (asymptomatic). Last mammogram was performed 1 year and 1 month ago. History: Patient is postmenopausal and has history of breast cancer at age 29. Family history of breast cancer in mother at age 70, premenopausal breast cancer in aunt at age 43, and premenopausal breast cancer in sister at age 36. Silicone gel implants in both breasts, 2003. Mastectomy of the left breast, 1985. Taking estrogen for 1 year beginning at age 49. Taking unspecified hormones for 28 years beginning at age 22. Physical Findings: A clinical breast exam by your physician is recommended on an annual basis and results should be correlated with mammographic findings. MG 3D Screen Mammo Imp/Cad Bilateral CC, MLO, and ID view(s) were taken. Prior study comparison: July 27, 2017, mammogram, performed at [facility]. June 01, 2016, mammogram, performed at [facility]. October 05, 2005, CAD bilateral diagnostic mammogram. There are scattered fibroglandular densities. There are benign appearing round calcifications bilaterally. Bilateral subpectoral implants redemonstrated. ASSESSMENT: Benign, BI-RAD 2 RECOMMENDATION: Routine screening mammogram of both breasts in 1 year.
== END | disposition home or self-care (01) ==
LOC: RADMAMWWP 08:13
PROVIDERS: ATTEND Family Medicine
DX: Z12.31 Encounter for screening mammogram for malignant neoplasm of breast (principal); Z98.82 Breast implant status
CPT/HCPCS: 77063; 77067

== ENCOUNTER 2019-01-23 23:00 | Observation (INO) | payer MEDICARE, OTHER ==
[2019-01-23] MEDS ORDERED: SODIUM CHLORIDE 0.9% 1,000 ML IV STA ×2 (23:49)
[2019-01-23] MEDS ORDERED: ASPIRIN 81 MG PO STA (23:49)
[2019-01-24 00:14] LABS: Basophils % (A) 0 %; Eosinophils # (A) 0.3 k/uL (0-0.7); Eosinophils % (A) 3 %; HCT 34.5 % (34.0-46.0); HGB 11.1 gm/dL (11.4-16.0); Lymphocytes # (A) 2.9 k/uL (1.0-4.8); Lymphocytes % (A) 25 %; MCH 28.6 pg (25.0-35.0); MCHC 32.2 g/dL (31.0-37.0); MCV 88.7 fL (80.0-100.0); Mean Platelet Volume 7.3; Monocytes # (A) 0.6 k/uL (0-1.0); Monocytes % (A) 5 %; Neutrophils # (A) 7.5 k/uL (1.3-7.7); Neutrophils % (A) 65 %; Platelet Count 269 k/uL (150-450); RBC 3.89 m/uL (3.80-5.40); RDW 15.6 % (11.5-15.5); WBC 11.4 k/uL (3.8-10.6)
[2019-01-24 00:23] LABS: INR 0.9 (<1.2); Partial Thromboplastin Time 23.3 sec (22.0-30.0); Prothrombin Time 9.6 sec (9.0-12.0)
[2019-01-24 00:27] LABS: Calcium 9.8 mg/dL (8.4-10.2); Magnesium 2.1 mg/dL (1.6-2.3); Potassium 4.1 mmol/L (3.5-5.1); Total Bilirubin 0.2 mg/dL (0.2-1.3); Total Protein 6.6 g/dL (6.3-8.2)
--- NOTE | 2019-01-24 01:08 | XR ---
EXAM: XR Chest, 2 Views CLINICAL HISTORY: Chest pain TECHNIQUE: Frontal and lateral views of the chest. COMPARISON: Chest x-ray dated 09/04/2015 FINDINGS: Lungs: Unremarkable. No consolidation. Pleural space: Unremarkable. No pneumothorax. Heart: Unremarkable. No cardiomegaly. Mediastinum: Unremarkable. Bones/joints: Unremarkable. IMPRESSION: Normal chest x-rays.
--- NOTE | 2019-01-24 01:46 | ED ---
Chest Pain HPI - General Chief Complaint: Chest Pain Stated Complaint: Trouble Swallowing Time Seen by Provider: 01/23/19 23:47 Source: patient Mode of arrival: ambulatory Limitations: no limitations - History of Present Illness Initial Comments: Roxanne is a 63-year-old female with a very extensive past medical history who presents to the emergency department today for evaluation of what she believes to be esophageal pain. Patient reports that years ago she had esophageal spasm, attempted a soft diet, lost a significant amount of weight and ended up with a gastric feeding tube. She had that for 6 years and had it removed a number of years ago. Patient states that she's been able to tolerate a diet since then. Patient states that since Wednesday she has felt like she can't swallow anything. When she attempts to swallow she feels that she gets stuck in her esophagus she feels a pressure-like pain and will develop hiccups or will vomit material back out. She has been able to tolerate small sips of water but sometimes even that comes back up. Patient's concern that she is getting dehydrated and that she was going to need a PEG tube again which she very much does not want. - Related Data Home Medications Medication Instructions Recorded Confirmed Gabapentin 800 mg PO TID 09/04/15 01/23/19 Oxybutynin Chloride [Ditropan] 10 mg PO BID 11/28/15 01/23/19 Carboxymethylcellulose Sodium 1 drop BOTH EYES BID PRN 06/30/16 01/23/19 [Refresh Tears] Ibuprofen [Motrin] 800 mg PO Q8H PRN 06/30/16 01/23/19 Levothyroxine Sodium [Synthroid] 100 mcg PO DAILY 06/30/16 01/23/19 oxyCODONE-APAP 5-325MG [Percocet 1 tab PO HS PRN 06/30/16 01/23/19 5-325 mg] buPROPion HCL [Wellbutrin XL] 300 mg PO DAILY 02/04/17 01/23/19 Bimatoprost [Lumigan .01% Ophth 1 drop BOTH EYES HS 01/10/18 01/23/19 Soln] Equate Laxative 75 mg PO QAM 01/10/18 01/23/19 Nystatin 100,000 Unit/ml Susp 500,000 units PO QID PRN 01/10/18 01/23/19 [Mycostatin Oral Susp] Cholecalciferol (Vitamin D3) 2,000 unit PO DAILY 06/16/18 01/23/19 [Vitamin D3] Docusate [Colace] 100 mg PO BID 06/16/18 01/23/19 Fluticasone Nasal [place] [Flonase 2 spr EA NOSTRIL HS PRN 06/16/18 01/23/19 Nasal [place]] Multivitamins, Thera [Multivitamin 1 tab PO DAILY 01/23/19 01/23/19 (formulary)] Vitamin B Complex 1 cap PO DAILY 01/23/19 01/23/19 Previous Rx's Medication Instructions Recorded Omeprazole [PriLOSEC] 20 mg PO AC-BID 15 Days capsule. 02/13/15 Allergies Allergy/AdvReac Type Severity Reaction Status Date / Time adhesive tape Allergy Rash/Hives Verified 01/23/19 23:23 ciprofloxacin [From Cipro] Allergy Rash/Hives Verified 01/23/19 23:23 ciprofloxacin HCl Allergy Rash/Hives Verified 01/23/19 23:23 [From Cipro] colesevelam [From WelChol] Allergy Rash/Hives Verified 01/23/19 23:23 colesevelam HCl Allergy Rash/Hives Verified 01/23/19 23:23 [From WelChol] latex Allergy Rash/Hives Verified 01/23/19 23:23 levofloxacin [From Levaquin] Allergy Rash/Hives Verified 01/23/19 23:23 prochlorperazine edisylate Allergy Swelling Verified 01/23/19 23:23 [From Compazine] prochlorperazine maleate Allergy Swelling Verified 01/23/19 23:23 [From Compazine] vancomycin Allergy Rash/Hives Verified 01/23/19 23:23 nitroglycerin AdvReac Dyspnea Verified 01/23/19 23:23 tramadol HCl [From Ultram] AdvReac WEAKNESS, Verified 01/23/19 23:23 DIZZYNESS zolpidem [From Ambien] AdvReac SLEEP Verified 01/23/19 23:23 WALKING COMBID Allergy Rash/Hives Uncoded 06/16/18 18:10 Review of Systems ROS Statement: Those systems with pertinent positive or pertinent negative responses have been documented in the HPI. ROS Other: All systems not noted in ROS Statement are negative. EKG Findings - EKG Comments: EKG Findings:: EKG was obtained due to the patient's complaint of retrosternal pain. EKG was obtained at 2319, rate is 77 rhythm is sinus tachycardia normal axis there are normal intervals, NH 158, QRS 90, QTc is 423. There are no acute ST elevations or depressions there is no evidence of acute ischemia or infarction. Past Medical History Past Medical History: Chest Pain / Angina, Eye Disorder, Fibromyalgia, GERD/Reflux, Memory Impairment, Osteoarthritis (OA), Pneumonia, Seizure Disorder, Thyroid Disorder Additional Past Medical History / Comment(s): Brain Aneurysm. FREYA RESOLVED. 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 MINOR, OCC Short term memory loss. DDD Cervical, Thoracic, Lumbar levels. Chronic Pain syndrome in Back. HX Breast CA. Proctosigmoiditis w/ Colostomy. Diverticulosis. Neuropathy kalyani legs/feet. Migraines. Veritgo. Glaucoma kalyani. KEISHA-BARRE, septic shock History of Any Multi-Drug Resistant Organisms: C-DIFF Date of last positivie culture/infection: 2010 MDRO Source:: stool Past Surgical History: Adenoidectomy, Back Surgery, Bladder Surgery, Bowel Resection, Breast Surgery, Cholecystectomy, Heart Catheterization, Hysterectomy, Joint Replacement, Tonsillectomy Additional Past Surgical History / Comment(s): 12/06/13 Cardiac cath-normal. cervical Fusion, Back surgury-rods/screws/cage, partial bowel resection with colostomy, bilateral mastectomies, total RIGHT KNEE REPLACEMENT, L knee arthroscopy, bladder suspension, cataracts. hip replacedment knee replacement Past Anesthesia/Blood Transfusion Reactions: Family History of Problems w/ Anesthesia, Postoperative Nausea & Vomiting (PONV) Additional Past Anesthesia/Blood Transfusion Reaction / Comment(s): FAMILY HAS PONV. Past Psychological History: Depression Smoking Status: Never smoker Past Alcohol Use History: None Reported Past Drug Use History: None Reported - Past Family History Father Family Medical History: Cancer, Musculoskeletal Disorder, Neurologic Disorder Additional Family Medical History / Comment(s): Father at 77 yrs. He had parkinson's dx. Mother Family Medical History: Cancer Additional Family Medical History / Comment(s): Mother had breast cancer. She is alive and 82 yrs old. General Exam - General Exam Comments Initial Comments: Physical Exam GENERAL: Patient is well-developed and well-nourished. Patient is nontoxic and well-hydrated and is in no distress. HENT: Normocephalic, Atraumatic. EYES: PERRL, EOMI PULMONARY: Unlabored respirations. No audible rales rhonchi or wheezing was noted. CARDIOVASCULAR: There is a regular rate and rhythm without any murmurs gallops or rubs. ABDOMEN: Small well-healed surgical scars Colostomy present in left lower quadrant, peak, patent and productive SKIN: Skin is clear with no lesions or rashes and otherwise unremarkable. : Deferred NEUROLOGIC: Patient is alert and oriented x3. Moving all extremities spontaneously MUSCULOSKELETAL: Normal extremities with adequate strength and full range of motion. No lower extremity swelling or edema. No calf tenderness. PSYCHIATRIC: Situational anxiety Limitations: no limitations Course Vital Signs 01/23/19 23:13 Temperature 98.4 F Pulse Rate 78 Respiratory 17 Rate Blood Pressure 147/82 O2 Sat by Pulse 97 Oximetry Chest Pain MDM - MDM The patient was seen and evaluated, history is obtained from the patient Patient's pain seems very much to be esophageal in nature, she's not tolerating by mouth intake she is very uncomfortable Labs and imaging were ordered to evaluate for any cardiac etiology of chest pain in addition to lipase, chest x-ray Labs and imaging are relatively unremarkable. Patient remained significantly uncomfortable, at this time I do feel given the patient's history that she warrants admission to the hospital for further evaluation by gastroenterology or surgery for evaluation of esophageal structure and motility. Patient care was discussed with her primary care physician Dr. Pressley who is very familiar with the patient and agrees with this plan. Admission orders were placed with a consult to gastroenterology. IV fluids were ordered. Morphine was ordered when necessary for pain. Patient was made nothing by mouth. Disposition Clinical Impression: Esophageal dysfunction, Atypical chest pain Disposition: ADMITTED IP TO THIS HOSP Referrals: Jaskaran Pressley MD [Primary Care Provider] - 1-2 days
[2019-01-24] MEDS ORDERED: MORPHINE SULFATE 4 MG/ML SYRINGE IVP STA (01:51)
[2019-01-24] MEDS ORDERED: NALOXONE 0.4 MG/ML 1 ML VIAL IV PRN (02:11)
[2019-01-24] MEDS: SODIUM CHLORIDE 0.9% 1,000 ML IV SCH ×2 (02:32→13:25)
--- NOTE | 2019-01-24 07:37 | P.HPIM ---
History of Present Illness Chief Complaint: Dysphagia The patient states she hasn't underlying past medical history of having chronic PEG tube placement related to dysphagia. The patient had this in [place] and was it was removed in 2011 and she's been eating nominally. She has history of bladder atony but she states over the last week or so that she's not been able to swallow properly because food gets stuck substernally. The patient is now observed for dysphagia. Significant nausea and vomiting is noted because of the dysphagia. The patient is worried about possibility of chronic PEG tube placement. Review of Systems Constitutional: Denies chills, Denies fever Ears, nose, mouth and throat: Denies headache, Denies sore throat Gastrointestinal: Reports indigestion, Reports nausea, Reports vomiting, Denies abdominal pain, Denies diarrhea Genitourinary: Denies dysuria, Denies hematuria Musculoskeletal: Denies myalgias Integumentary: Denies pruritus, Denies rash Neurological: Denies numbness, Denies weakness Past Medical History Past Medical History: Chest Pain / Angina, Eye Disorder, Fibromyalgia, G ERD/Reflux, Memory Impairment, Osteoarthritis (OA), Pneumonia, Seizure Disorder, Thyroid Disorder Additional Past Medical History / Comment(s): Brain Aneurysm. FREYA RESOLVED. 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 MINOR, OCC Short term memory loss. DDD Cervical, Thoracic, Lumbar levels. Chronic Pain syndrome in Back. HX Breast CA. Proctosigmoiditis w/ Colostomy. Diverticulosis. Neuropathy kalyani legs/feet. Migraines. Veritgo. Glaucoma kalyani. KEISHA-BARRE, septic shock History of Any Multi-Drug Resistant Organisms: C-DIFF Date of last positivie culture/infection: 2010 MDRO Source:: stool Past Surgical History: Adenoidectomy, Back Surgery, Bladder Surgery, Bowel Res ection, Breast Surgery, Cholecystectomy, Heart Catheterization, Hysterectomy, Joint Replacement, Tonsillectomy Additional Past Surgical History / Comment(s): 12/06/13 Cardiac cath-normal. cervical Fusion, Back surgury-rods/screws/cage, partial bowel resection with colostomy, bilateral mastectomies, total RIGHT KNEE REPLACEMENT, L knee arthroscopy, bladder suspension, cataracts. hip replacedment knee replacement Past Anesthesia/Blood Transfusion Reactions: Family History of Problems w/ Anesthesia, Postoperative Nausea & Vomiting (PONV) Additional Past Anesthesia/Blood Transfusion Reaction / Comment(s): FAMILY HAS PONV. Past Psychological History: Depression Smoking Status: Never smoker Past Alcohol Use History: None Reported Past Drug Use History: None Reported - Past Family History Father Family Medical History: Cancer, Musculoskeletal Disorder, Neurologic Disorder Additional Family Medical History / Comment(s): Father at 77 yrs. He had parkinson's dx. Mother Family Medical History: Cancer Additional Family Medical History / Comment(s): Mother had breast cancer. She is alive and 82 yrs old. Medications and Allergies Home Medications Medication Instructions Recorded Confirmed Type Omeprazole [PriLOSEC] 20 mg PO AC-BID 15 Days capsule. 02/13/15 01/23/19 Rx Gabapentin 800 mg PO TID 09/04/15 01/23/19 History Oxybutynin Chloride [Ditropan] 10 mg PO BID 11/28/15 01/23/19 History Carboxymethylcellulose Sodium 1 drop BOTH EYES BID PRN 06/30/16 01/23/19 History [Refresh Tears] Ibuprofen [Motrin] 800 mg PO Q8H PRN 06/30/16 01/23/19 History Levothyroxine Sodium [Synthroid] 100 mcg PO DAILY 06/30/16 01/23/19 History oxyCODONE-APAP 5-325MG [Percocet 1 tab PO HS PRN 06/30/16 01/23/19 History 5-325 mg] buPROPion HCL [Wellbutrin XL] 300 mg PO DAILY 02/04/17 01/23/19 History Bimatoprost [Lumigan .01% Ophth 1 drop BOTH EYES HS 01/10/18 01/23/19 History Soln] Equate Laxative 75 mg PO QAM 01/10/18 01/23/19 History Nystatin 100,000 Unit/ml Susp 500,000 units PO QID PRN 01/10/18 01/23/19 History [Mycostatin Oral Susp] Cholecalciferol (Vitamin D3) 2,000 unit PO DAILY 06/16/18 01/23/19 History [Vitamin D3] Docusate [Colace] 100 mg PO BID 06/16/18 01/23/19 History Fluticasone Nasal [place] [Flonase 2 spr EA NOSTRIL HS PRN 06/16/18 01/23/19 History Nasal [place]] Multivitamins, Thera [Multivitamin 1 tab PO DAILY 01/23/19 01/23/19 History (formulary)] Vitamin B Complex 1 cap PO DAILY 01/23/19 01/23/19 History Allergies Allergy/AdvReac Type Severity Reaction Status Date / Time adhesive tape Allergy Rash/Hives Verified 01/23/19 23:23 ciprofloxacin [From Cipro] Allergy Rash/Hives Verified 01/23/19 23:23 ciprofloxacin HCl Allergy Rash/Hives Verified 01/23/19 23:23 [From Cipro] colesevelam [From WelChol] Allergy Rash/Hives Verified 01/23/19 23:23 colesevelam HCl Allergy Rash/Hives Verified 01/23/19 23:23 [From WelChol] latex Allergy Rash/Hives Verified 01/23/19 23:23 levofloxacin [From Levaquin] Allergy Rash/Hives Verified 01/23/19 23:23 prochlorperazine edisylate Allergy Swelling Verified 01/23/19 23:23 [From Compazine] prochlorperazine maleate Allergy Swelling Verified 01/23/19 23:23 [From Compazine] vancomycin Allergy Rash/Hives Verified 01/23/19 23:23 nitroglycerin AdvReac Dyspnea Verified 01/23/19 23:23 tramadol HCl [From Ultram] AdvReac WEAKNESS, Verified 01/23/19 23:23 DIZZYNESS zolpidem [From Ambien] AdvReac SLEEP Verified 01/23/19 23:23 WALKING COMBID Allergy Rash/Hives Uncoded 06/16/18 18:10 Physical Exam Vitals: Vital Signs Temp Pulse Resp BP Pulse Ox 01/24/19 07:25 98.0 F 68 16 133/72 98 01/24/19 02:39 74 18 138/78 98 01/23/19 23:13 98.4 F 78 17 147/82 97 Intake and Output 01/23/19 01/24/19 01/24/19 22:59 06:59 14:59 Other: Weight 74.843 kg - Constitutional General appearance: no acute distress - EENT Eyes: EOMI - Neck Neck: no lymphadenopathy - Respiratory Respiratory: bilateral: CTA - Cardiovascular Rhythm: regular Heart sounds: normal: S1, S2 Abnormal Heart Sounds: no S3 Gallop - Gastrointestinal General gastrointestinal: soft, no tenderness - Neurologic Neurologic: CNII-XII intact - Psychiatric Psychiatric: A&O x's 3 Results CBC & Chem 7: 01/23/19 00:05 01/23/19 00:05 Labs: Abnormal Lab Results - Last 24 Hours (Table) 01/23/19 Range/Units 00:05 WBC 11.4 H (3.8-10.6) k/uL Hgb 11.1 L (11.4-16.0) gm/dL RDW 15.6 H (11.5-15.5) % Assessment and Plan (1) Dysphagia Current Visit: Yes Status: Acute Code(s): R13.10 - DYSPHAGIA, UNSPECIFIED SNOMED Code(s): 53381198 (2) Esophageal dysfunction Current Visit: Yes Status: Acute Code(s): K22.4 - DYSKINESIA OF ESOPHAGUS SNOMED Code(s): 215832825 (3) GERD (gastroesophageal reflux disease) Current Visit: No Status: Acute Code(s): K21.9 - GASTRO-ESOPHAGEAL REFLUX DISEASE WITHOUT ESOPHAGITIS SNOMED Code(s): 031228483 (4) Nausea and vomiting Current Visit: No Status: Acute Code(s): R11.2 - NAUSEA WITH VOMITING, UNSPECIFIED SNOMED Code(s): 20398753 Plan: Upper GI versus EGD. Await GI consultation. Reconcile medications as possible. The patient is otherwise full code at this time. Continue to follow from a medical perspective. Question need for dilatation versus neurologic workup.
[2019-01-24] MEDS: PANTOPRAZOLE 40 MG/10 ML VIAL IV SCH (08:44)
[2019-01-24] MEDS ORDERED: oxyCODONE-APAP 5-325MG 1 EACH TAB PO PRN (09:37)
[2019-01-24] MEDS: HYDROmorphone 1 MG/ML 1 ML SYRINGE IVP PRN (09:45)
[2019-01-24] MEDS: ONDANSETRON 4 MG/2 ML VIAL IVP PRN ×2 (10:49→20:49)
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
[2019-01-24] MEDS ORDERED: LIDOCAINE 1% INJ 10MG/ML (20 ML MDV) ONE (13:38)
[2019-01-24] MEDS ORDERED: SUCCINYLCHOLINE CHLORIDE 100 MG/5 ML SYR IV ONE (13:38)
[2019-01-24] MEDS ORDERED: PROPOFOL 10 MG/ML 20 ML VIAL IV ONE (13:38)
[2019-01-24] MEDS ORDERED: IV FLUID CONTINUATION 1,000 ML IV ONE (14:04)
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
[2019-01-25] MEDS ORDERED: NYSTATIN 100,000 UNIT/ML SUSP 500,000 UNIT/5 ML CUP PO PRN (08:29)
[2019-01-25] MEDS ORDERED: IBUPROFEN 800 MG TAB PO PRN (08:29)
[2019-01-25] MEDS ORDERED: ARTIFICIAL TEARS-HYPROMELLOSE DROPS 15 ML BTL BOTH EYES PRN (08:29)
[2019-01-25] MEDS ORDERED: FLUTICASONE 50MCG/SPRAY NASAL 16GM EA NOSTRIL PRN (08:29)
--- NOTE | 2019-01-25 08:40 | P.PN ---
Subjective Progress Note Date: 01/25/19 Principal diagnosis: Dysphagia with dilatation This is a continue progress on a 63-year-old white female essentially admitted for odynophagia. The patient essentially had EGD with outpatient and we will advance diet today. No significant new complaints. There still is some mild nausea but no overt vomiting. Objective - Vital Signs Vital signs: Vital Signs Temp 98.4 F 01/25/19 07:54 Pulse 88 01/25/19 07:54 Resp 15 01/25/19 07:54 BP 123/72 01/25/19 07:54 Pulse Ox 97 01/25/19 07:54 Intake & Output 01/24/19 01/25/19 01/25/19 18:59 06:59 18:59 Intake Total 200 Output Total 1850 Balance -1650 Intake: IV 200 Output: Urine 1850 - Constitutional General appearance: Present: average body habitus - EENT Eyes: Absent: abnormal pupil - Neck Neck: Absent: lymphadenopathy - Respiratory Respiratory: bilateral: CTA - Cardiovascular Rhythm: regular Heart sounds: normal: S1, S2 Abnormal Heart Sounds: Absent: S3 Gallop - Gastrointestinal General gastrointestinal: Present: soft. Absent: tenderness - Psychiatric Psychiatric: Present: A&O x's 3, appropriate affect - Labs CBC & Chem 7: 01/23/19 00:05 01/23/19 00:05 Assessment and Plan (1) Dysphagia Current Visit: Yes Status: Acute Code(s): R13.10 - DYSPHAGIA, UNSPECIFIED SNOMED Code(s): 10459159 (2) Esophageal dysfunction Current Visit: Yes Status: Acute Code(s): K22.4 - DYSKINESIA OF ESOPHAGUS SNOMED Code(s): 611352113 (3) GERD (gastroesophageal reflux disease) Current Visit: No Status: Acute Code(s): K21.9 - GASTRO-ESOPHAGEAL REFLUX DISEASE WITHOUT ESOPHAGITIS SNOMED Code(s): 698639326 (4) Nausea and vomiting Current Visit: No Status: Acute Code(s): R11.2 - NAUSEA WITH VOMITING, UNSPECIFIED SNOMED Code(s): 58117665 Plan: Advance diet today to full liquid. If tolerated, anticipate discharge in next 24 hours.
[2019-01-25] MEDS: PANTOPRAZOLE 40 MG/10 ML VIAL IV SCH (08:52)
[2019-01-25] MEDS: buPROPion XL 300 MG TAB.ER.24H PO SCH (08:53)
[2019-01-25] MEDS: CHOLECALCIFEROL 1,000 UNIT TAB PO SCH (08:54)
[2019-01-25] MEDS: OXYBUTYNIN CHLORIDE 5 MG TAB PO SCH ×2 (08:55→21:29)
[2019-01-25] MEDS: MULTIVITAMINS, THERA 1 EACH TAB PO SCH (08:55)
[2019-01-25] MEDS: DOCUSATE 100 MG CAP PO SCH ×2 (08:55→21:29)
[2019-01-25] MEDS: LEVOTHYROXINE 100 MCG TAB PO SCH (08:55)
[2019-01-25] MEDS: GABAPENTIN 400 MG CAP PO SCH ×3 (08:55→21:28)
[2019-01-25] MEDS ORDERED: EQUATE LAXATIVE PO SCH (09:00)
[2019-01-25] MEDS ORDERED: NON-FORMULARY DRUG (Vitamin B Complex [Vitamin B Complex] 1 CAP) PO SCH (09:00)
[2019-01-25] MEDS: ONDANSETRON 4 MG/2 ML VIAL IVP PRN ×2 (09:05→18:47)
[2019-01-25] MEDS ORDERED: LORATADINE 10 MG TAB PO PRN (11:34)
[2019-01-25] MEDS: HYDROmorphone 1 MG/ML 1 ML SYRINGE IVP PRN (15:52)
[2019-01-25] MEDS ORDERED: NON-FORMULARY DRUG (Omeprazole 20 MG) PO SCH (17:30)
--- NOTE | 2019-01-25 20:15 | P.PN ---
Subjective Progress Note Date: 01/25/19 Principal diagnosis: Esophageal dysphagia Patient seen lying in bed. He has tolerated a full liquid diet. No further nausea and vomiting. Objective - Vital Signs Vital signs: Vital Signs Temp 98.4 F 01/25/19 07:54 Pulse 88 01/25/19 08:00 Resp 15 01/25/19 08:00 BP 123/72 01/25/19 07:54 Pulse Ox 97 01/25/19 07:54 Intake & Output 01/24/19 01/25/19 01/25/19 18:59 06:59 18:59 Intake Total 200 Output Total 1850 1675 Balance -1650 -1675 Intake: IV 200 Output: Urine 1850 1675 Other: Voiding Method Indwelling Catheter - Exam On physical examination, patient appears comfortable in no apparent distress. HEAD: Normocephalic, atraumatic. EYES: No scleral icterus. No conjunctival injection. MOUTH: No lesions, tongue midline. NECK: Trachea midline, no gross abnormalities. CHEST: Decreased air entry bilaterally. HEART: S1-S2 appreciated. ABDOMEN: Soft. Bowel sounds are positive. No organomegaly. No guarding or rigidity. EXTREMITIES: No pedal edema. SKIN: No rashes, no jaundice. NEUROLOGIC: Alert and oriented x3. No focal deficits. - Labs CBC & Chem 7: 01/23/19 00:05 01/23/19 00:05 Assessment and Plan (1) Dysphagia Narrative/Plan: 63-year-old female who presented to the hospital with complaints of esophageal dysphagia. Patient was having nausea and vomiting at that time and concerned of food stuck in her esophagus. She is a prior history of diagnosis of esophageal dysmotility and PEG tube placement which was removed 5 years ago. Since that time she's been on a modified chopped/pured diet however had been eating popcorn on presentation. EGD was significant for a dilated esophagus contracted at the gastroesophageal junction, suspicious for achalasia or other motility disorder. Currently reporting improvement in symptoms. Current Visit: Yes Status: Acute Code(s): R13.10 - DYSPHAGIA, UNSPECIFIED SNOMED Code(s): 40937537 (2) Esophageal dysfunction Current Visit: Yes Status: Acute Code(s): K22.4 - DYSKINESIA OF ESOPHAGUS SNOMED Code(s): 124776058 Plan: Supportive care Full liquid diet, plan to advance to pured tomorrow Continue Protonix therapy Okay for discharge from gastroenterology standpoint, with patient to follow-up 2-4 weeks after discharge with discussion for possible manometry (she believed she still has documentation from [place] where initial evaluation for dysphagia was performed) Thank you for allowing us to participate in the care of the patient, we will standby, please call us back with any further questions or concerns
[2019-01-25] MEDS ORDERED: HYOSCYAMINE SULFATE 0.125 MG TAB PO PRN (20:16)
[2019-01-25] MEDS ORDERED: LATANOPROST 0.005% OPHTH DROPS 2.5 ML BTL BOTH EYES SCH (21:00)
[2019-01-25] MEDS: SODIUM CHLORIDE 0.9% 1,000 ML IV SCH (21:30)
[2019-01-25] MEDS: LACTULOSE 20 GM/30 ML CUP PO SCH (23:26)
[2019-01-26] MEDS: LEVOTHYROXINE 100 MCG TAB PO SCH (05:18)
[2019-01-26] MEDS: SODIUM CHLORIDE 0.9% 1,000 ML IV SCH (05:19)
[2019-01-26] MEDS: ONDANSETRON 4 MG/2 ML VIAL IVP PRN (06:50)
[2019-01-26 07:46] VITALS: BP 104/62; PULSE 72; RESP 17; TEMP 98.3
[2019-01-26] MEDS ORDERED: PANTOPRAZOLE 40 MG TABLET PO SCH (09:00)
--- NOTE | 2019-01-26 09:08 | P.DS ---
Providers Date of admission: 01/24/19 02:13 Attending physician: Jaskaran Pressley Primary care physician: Jaskaran Pressley - Discharge Diagnosis(es) (1) Dysphagia Current Visit: Yes Status: Acute (2) Esophageal dysfunction Current Visit: Yes Status: Acute (3) GERD (gastroesophageal reflux disease) Current Visit: No Status: Acute (4) Nausea and vomiting Current Visit: No Status: Acute Hospital Course: This discharge summary on a 63-year-old white female essentially with dysphagia. She had ended up having EGD with outpatient and will require. Diet upon discharge. The patient will follow-up with me in about 5-7 days. We will continue PPI and have her follow-up with GI in 2-4 weeks for possible manometry study. Patient Condition at Discharge: Stable Plan - Discharge Summary Discharge Rx Participant: No New Discharge Prescriptions: No Action Omeprazole [PriLOSEC] 20 mg PO AC-BID 15 Days capsule. Gabapentin 800 mg PO TID Oxybutynin Chloride [Ditropan] 10 mg PO BID Ibuprofen [Motrin] 800 mg PO Q8H PRN PRN Reason: Pain Levothyroxine Sodium [Synthroid] 100 mcg PO DAILY oxyCODONE-APAP 5-325MG [Percocet 5-325 mg] 1 tab PO HS PRN PRN Reason: Pain Carboxymethylcellulose Sodium [Refresh Tears] 1 drop BOTH EYES BID PRN PRN Reason: Dry Eye(S) buPROPion HCL [Wellbutrin XL] 300 mg PO DAILY Nystatin 100,000 Unit/ml Susp [Mycostatin Oral Susp] 500,000 units PO QID PRN PRN Reason: THRUSH Equate Laxative 75 mg PO QAM Bimatoprost [Lumigan .01% Ophth Soln] 1 drop BOTH EYES HS Docusate [Colace] 100 mg PO BID Cholecalciferol (Vitamin D3) [Vitamin D3] 2,000 unit PO DAILY Fluticasone Nasal [place] [Flonase Nasal [place]] 2 spr EA NOSTRIL HS PRN PRN Reason: Allergy Symptoms Multivitamins, Thera [Multivitamin (formulary)] 1 tab PO DAILY Vitamin B Complex 1 cap PO DAILY Discharge Medication List Omeprazole [PriLOSEC] 20 mg PO AC-BID 15 Days capsule. 02/13/15 [Rx] Gabapentin 800 mg PO TID 09/04/15 [History] Oxybutynin Chloride [Ditropan] 10 mg PO BID 11/28/15 [History] Carboxymethylcellulose Sodium [Refresh Tears] 1 drop BOTH EYES BID PRN 06/30/16 [History] Ibuprofen [Motrin] 800 mg PO Q8H PRN 06/30/16 [History] Levothyroxine Sodium [Synthroid] 100 mcg PO DAILY 06/30/16 [History] oxyCODONE-APAP 5-325MG [Percocet 5-325 mg] 1 tab PO HS PRN 06/30/16 [History] buPROPion HCL [Wellbutrin XL] 300 mg PO DAILY 02/04/17 [History] Bimatoprost [Lumigan .01% Ophth Soln] 1 drop BOTH EYES HS 01/10/18 [History] Equate Laxative 75 mg PO QAM 01/10/18 [History] Nystatin 100,000 Unit/ml Susp [Mycostatin Oral Susp] 500,000 units PO QID PRN 01/10/18 [History] Cholecalciferol (Vitamin D3) [Vitamin D3] 2,000 unit PO DAILY 06/16/18 [History] Docusate [Colace] 100 mg PO BID 06/16/18 [History] Fluticasone Nasal [place] [Flonase Nasal [place]] 2 spr EA NOSTRIL HS PRN 06/16/18 [History] Multivitamins, Thera [Multivitamin (formulary)] 1 tab PO DAILY 01/23/19 [History] Vitamin B Complex 1 cap PO DAILY 01/23/19 [History] Follow up Appointment(s)/Referral(s): Jaskaran Pressley MD [Primary Care Provider] - 1 Week Discharge Disposition: HOME SELF-CARE
[2019-01-26] MEDS: buPROPion XL 300 MG TAB.ER.24H PO SCH (09:45)
[2019-01-26] MEDS: GABAPENTIN 400 MG CAP PO SCH (09:45)
[2019-01-26] MEDS: CHOLECALCIFEROL 1,000 UNIT TAB PO SCH (09:45)
[2019-01-26] MEDS: LACTULOSE 20 GM/30 ML CUP PO SCH (09:45)
[2019-01-26] MEDS: DOCUSATE 100 MG CAP PO SCH (09:45)
[2019-01-26] MEDS: OXYBUTYNIN CHLORIDE 5 MG TAB PO SCH (09:46)
[2019-01-26] MEDS: MULTIVITAMINS, THERA 1 EACH TAB PO SCH (09:46)
== END 2019-01-26 09:58 | disposition home or self-care (01) ==
LOC: EC 23:00 → 3NMEDONC 01-24 02:13 → 1SOBS 01-24 17:36
PROVIDERS: ADMIT Family Medicine; ATTEND Family Medicine
DX: K22.8 Other specified diseases of esophagus (principal); K21.9 Gastro-esophageal reflux disease without esophagitis; T18.128A Food in esophagus causing other injury, initial encounter; X58.XXXA Exposure to other specified factors, initial encounter; Y93.89 Activity, other specified; T18.2XXA Foreign body in stomach, initial encounter; K22.4 Dyskinesia of esophagus; R11.2 Nausea with vomiting, unspecified; M79.7 Fibromyalgia; G62.9 Polyneuropathy, unspecified; N31.2 Flaccid neuropathic bladder, not elsewhere classified; G40.909 Epilepsy, unspecified, not intractable, without status epilepticus; E07.9 Disorder of thyroid, unspecified; R41.3 Other amnesia; R07.2 Precordial pain; M19.90 Unspecified osteoarthritis, unspecified site; M50.30 Other cervical disc degeneration, unspecified cervical region; M51.34 Other intervertebral disc degeneration, thoracic region; M51.36 Other intervertebral disc degeneration, lumbar region; G89.4 Chronic pain syndrome; F32.9 Major depressive disorder, single episode, unspecified; H40.9 Unspecified glaucoma; G43.909 Migraine, unspecified, not intractable, without status migrainosus; Z90.49 Acquired absence of other specified parts of digestive tract; Z98.1 Arthrodesis status; Z87.01 Personal history of pneumonia (recurrent); Z85.3 Personal history of malignant neoplasm of breast; Z87.828 Personal history of other (healed) physical injury and trauma; Z79.899 Other long term (current) drug therapy; Z79.890 Hormone replacement therapy; Z79.891 Long term (current) use of opiate analgesic; Z79.1 Long term (current) use of non-steroidal anti-inflammatories (NSAID); Z91.048 Other nonmedicinal substance allergy status; Z88.1 Allergy status to other antibiotic agents; Z88.8 Allergy status to other drugs, medicaments and biological substances; Z91.040 Latex allergy status; Z88.5 Allergy status to narcotic agent; Z16.24 Resistance to multiple antibiotics; Z93.3 Colostomy status; Z90.710 Acquired absence of both cervix and uterus; Z90.13 Acquired absence of bilateral breasts and nipples; Z96.651 Presence of right artificial knee joint; Z80.3 Family history of malignant neoplasm of breast; Z82.0 Family history of epilepsy and other diseases of the nervous system; Z82.69 Family history of other diseases of the musculoskeletal system and connective tissue
CPT/HCPCS: 96361; 96374; 96375; 99285; 36415; 94770; 93005; 80053; 83690; 83735; 84484; 85025; 85610; 85730; 71046; 43235; G0378 ×3; J2270; J2405 ×3; J2001; J1170 ×2; J0330; J2704; C9113 ×2

== ENCOUNTER → 2019-02-13 | Outpatient (CLI) | payer MEDICARE, OTHER ==
--- NOTE | 2019-02-13 10:59 | FL ---
ESOPHOGRAM. HISTORY: Dysphagia Esophagram was performed per the air contrast technique. The patient swallowed barium and effervesce nt crystals without difficulty or delay. Tertiary contractions noted compatible with presbyesophagus. There is no evidence for filling defect, mass or diverticulum. No hiatal hernia seen. Subsequently single contrast cervical esophagram was performed which fails demonstrate evidence for a spiration penetration or mass. IMPRESSION: Tertiary contractions noted compatible with presbyesophagus.
== END ==
LOC: RADUSWWP 09:50
PROVIDERS: ATTEND Family Medicine
DX: R93.3 Abnormal findings on diagnostic imaging of other parts of digestive tract (principal)
CPT/HCPCS: 74220

== ENCOUNTER → 2019-02-24 | Outpatient (CLI) | payer MEDICARE, OTHER ==
--- NOTE | 2019-02-24 11:43 | FL ---
Modified barium swallow. HISTORY: Dysphagia. Modified barium swallow was performed with the department of speech pathology. The patient was prese nted with various consistencies of barium. There is no evidence for aspiration. There is transient deep penetration noted. Vallecular residuals identified. Full report is to follow from the department of speech pathology. Impression: There is transient deep penetration noted. Vallecular residuals identified.
== END | disposition home or self-care (01) ==
LOC: RADFLMAIN 11:12
PROVIDERS: ATTEND Family Medicine
DX: R13.10 Dysphagia, unspecified (principal)
CPT/HCPCS: 74230

== ENCOUNTER 2019-03-24 19:46 | Emergency (ER) | payer MEDICARE, OTHER ==
[2019-03-24 20:03] VITALS: RESP 18
--- NOTE | 2019-03-24 21:24 | CT ---
EXAMINATION TYPE: CT brain michelle hahn con DATE OF EXAM: 03/24/2019 COMPARISON: 06/19/2017 HISTORY: Fall x6 days ago. CT DLP: 1401.4 mGycm Automated exposure control for dose reduction was used. TECHNIQUE: CT scan of the head and cervical spine are performed without contrast. FINDINGS: Ventricles have normal size. There is no mass effect nor midline shift. There is no sign of intracranial hemorrhage. The calvarium is intact. There is no evidence of skull fracture. There is incomplete pneumatization right mastoid sinus. There is previous cervical spine anterior fusion surgery at C4 and C5 and C6. Vertebra have normal al ignment. There is some spurring of the endplates. Facet joints are intact. The skull base is intact. IMPRESSION: Spondylotic changes in the cervical spine. Moderate posterior spurring at C3-4 with mild bony spinal stenosis unchanged. No fracture. Negative CT scan of the brain. Minimal right-sided mastoiditis. No change.
--- NOTE | 2019-03-24 21:25 | XR ---
EXAMINATION TYPE: XR pelvis AP view DATE OF EXAM: 03/24/2019 COMPARISON: 08/22/2013 HISTORY: Fall. Pain. TECHNIQUE: Single view FINDINGS: The pelvic ring is intact. There is left hip prosthesis. There is previous cervical spine f usion surgery. Sacroiliac joints appear intact. I see no pelvic fracture. IMPRESSION: No acute abnormality of the pelvis. No adverse change compared to old exam. No fracture s een.
[2019-03-24] MEDS ORDERED: ACETAMINOPHEN TAB 500 MG TAB PO STA (21:35)
--- NOTE | 2019-03-24 22:05 | ED ---
Fall HPI - General Chief Complaint: Fall Stated Complaint: Fall 3 days ago, back pain Time Seen by Provider: 03/24/19 20:11 Source: patient Mode of arrival: ambulatory - History of Present Illness Initial Comments: Patient is a 63-year-old female presenting to the emergency department with a chief complaint of a fall. Patient reports she fell 5 days ago and also had a head trauma. Patient denies loss of consciousness at time of incident. Patient reports she hit her head and has had a "goose egg" which has resolved. Patient also reports initially she developed a headache which is the result. Patient reports pain near the left buttock. Patient also reports only very mild paraspinal tenderness in the lumbosacral region. Patient does not report any vertebral tenderness. Patient denies any nausea or vomiting, blurry vision or one-sided weakness or paresthesias. Patient reports taking Flexeril but has ran out of the medication. Patient is not on blood thinners. - Related Data Home Medications Medication Instructions Recorded Confirmed Gabapentin 800 mg PO TID 09/04/15 01/23/19 Oxybutynin Chloride [Ditropan] 10 mg PO BID 11/28/15 01/23/19 Carboxymethylcellulose Sodium 1 drop BOTH EYES BID PRN 06/30/16 01/23/19 [Refresh Tears] Ibuprofen [Motrin] 800 mg PO Q8H PRN 06/30/16 01/23/19 Levothyroxine Sodium [Synthroid] 100 mcg PO DAILY 06/30/16 01/23/19 oxyCODONE-APAP 5-325MG [Percocet 1 tab PO HS PRN 06/30/16 01/23/19 5-325 mg] buPROPion HCL [Wellbutrin XL] 300 mg PO DAILY 02/04/17 01/23/19 Bimatoprost [Lumigan .01% Ophth 1 drop BOTH EYES HS 01/10/18 01/23/19 Soln] Equate Laxative 75 mg PO QAM 01/10/18 01/23/19 Nystatin 100,000 Unit/ml Susp 500,000 units PO QID PRN 01/10/18 01/23/19 [Mycostatin Oral Susp] Cholecalciferol (Vitamin D3) 2,000 unit PO DAILY 06/16/18 01/23/19 [Vitamin D3] Docusate [Colace] 100 mg PO BID 06/16/18 01/23/19 Fluticasone Nasal [place] [Flonase 2 spr EA NOSTRIL HS PRN 06/16/18 01/23/19 Nasal [place]] Multivitamins, Thera [Multivitamin 1 tab PO DAILY 01/23/19 01/23/19 (formulary)] Vitamin B Complex 1 cap PO DAILY 01/23/19 01/23/19 Previous Rx's Medication Instructions Recorded Omeprazole [PriLOSEC] 20 mg PO AC-BID 15 Days capsule. 02/13/15 Cyclobenzaprine [Flexeril] 5 mg PO TID PRN #15 tablet 03/24/19 methylPREDNISolone [Medrol Dose 4 mg PO DIRECTED #1 pack 03/24/19 Pack] Allergies Allergy/AdvReac Type Severity Reaction Status Date / Time adhesive tape Allergy Rash/Hives Verified 03/24/19 20:05 ciprofloxacin [From Cipro] Allergy Rash/Hives Verified 03/24/19 20:05 ciprofloxacin HCl Allergy Rash/Hives Verified 03/24/19 20:05 [From Cipro] colesevelam [From WelChol] Allergy Rash/Hives Verified 03/24/19 20:05 colesevelam HCl Allergy Rash/Hives Verified 03/24/19 20:05 [From WelChol] latex Allergy Rash/Hives Verified 03/24/19 20:05 levofloxacin [From Levaquin] Allergy Rash/Hives Verified 03/24/19 20:05 prochlorperazine edisylate Allergy Swelling Verified 03/24/19 20:05 [From Compazine] prochlorperazine maleate Allergy Swelling Verified 03/24/19 20:05 [From Compazine] vancomycin Allergy Rash/Hives Verified 03/24/19 20:05 nitrofurantoin AdvReac Nausea & Verified 03/24/19 20:05 [From Macrobid] Vomiting nitroglycerin AdvReac Dyspnea Verified 03/24/19 20:05 tramadol HCl [From Ultram] AdvReac WEAKNESS, Verified 03/24/19 20:05 DIZZYNESS zolpidem [From Ambien] AdvReac SLEEP Verified 03/24/19 20:05 WALKING COMBID Allergy Rash/Hives Uncoded 03/24/19 20:05 Review of Systems ROS Statement: Those systems with pertinent positive or pertinent negative responses have been documented in the HPI. ROS Other: All systems not noted in ROS Statement are negative. Past Medical History Past Medical History: Chest Pain / Angina, Eye Disorder, Fibromyalgia, GERD/Reflux, Memory Impairment, Osteoarthritis (OA), Pneumonia, Thyroid Disorder Additional Past Medical History / Comment(s): . 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 MINOR, OCC Short term memory loss. DDD Cervical, Thoracic, Lumbar levels. Chronic Pain syndrome in Back. Proctosigmoiditis w/ Colostomy. Diverticulosis. Neuropathy kalyani legs/feet. Migraines. Veritgo. Glaucoma k[place]ani. KEISHA-BARRE, septic shock, History of Any Multi-Drug Resistant Organisms: C-DIFF Date of last positivie culture/infection: 2010 MDRO Source:: stool Past Surgical History: Adenoidectomy, Back Surgery, Bladder Surgery, Bowel Resection, Breast Surgery, Cholecystectomy, Heart Catheterization, Hysterectomy, Joint Replacement, Tonsillectomy Additional Past Surgical History / Comment(s): 12/06/13 Cardiac cath-normal. cervical Fusion, Back surgury-rods/screws/cage, partial bowel resection with colostomy, total RIGHT KNEE REPLACEMENT, L knee arthroscopy, bladder suspension, cataracts breast augmentation. hip replacedment knee replacement Past Anesthesia/Blood Transfusion Reactions: Family History of Problems w/ Anesthesia, Postoperative Nausea & Vomiting (PONV) Additional Past Anesthesia/Blood Transfusion Reaction / Comment(s): FAMILY HAS PONV. Past Psychological History: Depression Smoking Status: Never smoker Past Alcohol Use History: None Reported Past Drug Use History: None Reported - Past Family History Father Family Medical History: Cancer, Musculoskeletal Disorder, Neurologic Disorder Additional Family Medical History / Comment(s): Father at 77 yrs. He had parkinson's dx. Mother Family Medical History: Cancer Additional Family Medical History / Comment(s): Mother had breast cancer. She is alive and 82 yrs old. General Exam Limitations: no limitations General appearance: alert, in no apparent distress Head exam: Present: atraumatic, normocephalic, normal inspection Eye exam: Present: normal appearance, PERRL, EOMI Pupils: Present: normal accommodation ENT exam: Present: normal exam, normal oropharynx, mucous membranes moist, TM's normal bilaterally, normal external ear exam Neck exam: Present: normal inspection, full ROM Respiratory exam: Present: normal lung sounds bilaterally Cardiovascular Exam: Present: regular rate, normal rhythm, normal heart sounds Extremities exam: Present: normal inspection, full ROM, normal capillary refill, other (+2 dorsalis pedis and posterior tibialis bilaterally. 5/5 strength in bilateral upper and lower extremities.) Back exam: Present: normal inspection (No ecchymosis or abrasions noted.), tenderness (Tenderness at the left Buttock. ), paraspinal tenderness (Left paraspinal tenderness in the lumbosacral region that is very mild). Absent: full ROM (Limited range of motion in the lower back due to pain.), CVA tenderness (R), CVA tenderness (L), muscle spasm, vertebral tenderness, other Neurological exam: Present: alert, oriented X3, CN II-XII intact, normal gait. Absent: motor sensory deficit Psychiatric exam: Present: normal affect, normal mood Skin exam: Present: warm, intact, normal color Course Vital Signs 03/24/19 03/24/19 03/24/19 19:58 20:23 22:14 Temperature 98.3 F 98.8 F 98.5 F Pulse Rate 84 80 80 Respiratory 18 18 18 Rate Blood Pressure 141/69 128/70 126/72 O2 Sat by Pulse 95 98 98 Oximetry 03/24/19 22:53 Temperature 98 F Pulse Rate 78 Respiratory 18 Rate Blood Pressure 125/60 O2 Sat by Pulse 100 Oximetry Medical Decision Making - Medical Decision Making Patient is 63-year-old female presenting to the emergency department with a chief complaint of a fall. Patient reports she fell 5 days ago. Patient reports head trauma but denies loss of consciousness at time of incident. Patient is on a blood thinners. Patient also reports left-sided paraspinal pain in the lumbosacral region and radiates to the left buttock. Patient does have tenderness with palpation of the region. Patient does have previous chronic low back pain. I suspect this to be an exacerbation of her chronic symptoms. Pelvic x-rays unremarkable. CT of the brain the C-spine is negative for acute fracture or dislocations. Patient does not have any oral trauma. No signs of trauma noted to the head. Patient given Tylenol and Toradol Flexeril for symptomatically control. Patient reports typically she obtains a steroid pack from her primary care to control her chronic low back pain. Patient will be discharged with a Medrol Dosepak and Flexeril. Strict return parameters were thoroughly discussed with patient was understanding and agreeable. Case discussed with physician. Disposition Clinical Impression: Fall Disposition: HOME SELF-CARE Condition: Stable Instructions (If sedation given, give patient instructions): Fall Prevention (ED) Additional Instructions: Please take prescribed medication as directed. Please follow with primary care. Please return to emergency department if symptoms worsen. Prescriptions: Cyclobenzaprine [Flexeril] 5 mg PO TID PRN #15 tablet PRN Reason: Muscle Spasm methylPREDNISolone [Medrol Dose Pack] 4 mg PO DIRECTED #1 pack Is patient prescribed a controlled substance at d/c from ED?: No Referrals: Jaskaran Pressley MD [Primary Care Provider] - 1-2 days Time of Disposition: 22:32
[2019-03-24] MEDS ORDERED: KETOROLAC 30 MG/ML 1 ML VIAL IM STA (22:26)
[2019-03-24] MEDS ORDERED: CYCLOBENZAPRINE 10MG STARTER 3 TAB BTL PO STA (22:42)
[2019-03-24 22:54] VITALS: BP 125/60; PULSE 78; TEMP 98
== END 2019-03-24 22:54 | disposition home or self-care (01) ==
LOC: EC 19:46
DX: M54.5 Low back pain (principal); R51 Headache; M79.7 Fibromyalgia; H40.9 Unspecified glaucoma; M19.90 Unspecified osteoarthritis, unspecified site; E07.9 Disorder of thyroid, unspecified; G62.9 Polyneuropathy, unspecified; F32.9 Major depressive disorder, single episode, unspecified; Z88.1 Allergy status to other antibiotic agents; Z88.5 Allergy status to narcotic agent; Z88.8 Allergy status to other drugs, medicaments and biological substances; Z91.040 Latex allergy status; Z91.048 Other nonmedicinal substance allergy status; Z79.1 Long term (current) use of non-steroidal anti-inflammatories (NSAID); Z79.890 Hormone replacement therapy; Z79.899 Other long term (current) drug therapy; Z86.69 Personal history of other diseases of the nervous system and sense organs; Z96.651 Presence of right artificial knee joint; Z96.649 Presence of unspecified artificial hip joint; Z98.1 Arthrodesis status; W10.9XXA Fall (on) (from) unspecified stairs and steps, initial encounter; Z82.69 Family history of other diseases of the musculoskeletal system and connective tissue
CPT/HCPCS: 72170; 72125; 70450; 99284; 96372; J1885

== ENCOUNTER 2019-05-23 15:48 | Observation (INO) | payer MEDICARE, OTHER ==
[2019-05-23] MEDS ORDERED: MAG HYDROX/AL HYDROX/SIMETH 30 ML, HYOSCYAMINE ELIXIR 10 ML, LIDOCAINE VISCOUS 2% 10 ML PO STA ×3 (16:16)
[2019-05-23] MEDS ORDERED: FAMOTIDINE 20 MG/2 ML VIAL IV STA (16:17)
--- NOTE | 2019-05-23 16:23 | ED ---
General Adult HPI - General Chief complaint: Chest Pain Stated complaint: Chest pain Time Seen by Provider: 05/23/19 15:55 Source: patient, EMS, RN notes reviewed, old records reviewed Mode of arrival: EMS Limitations: no limitations - History of Present Illness Initial comments: This is a 64-year-old female past medical history significant for colostomy secondary to trauma. Patient also states she has bad gastroesophageal reflux. Patient's complaint today is that her gastric esophageal reflux is really bad and it radiates to her neck and her arms. Patient states she's also had a diaphoretic episode started this morning 8:00. Patient states his been continuous even after she took Prilosec and most of a bottle of Maalox. Patient states she had no relief at all. Patient denies any shortness of breath. Patient denies any vomiting or diarrhea. Patient denies any fever chills or cough per patient denies headache patient denies numbness weakness. - Related Data Home Medications Medication Instructions Recorded Confirmed Gabapentin 800 mg PO TID 09/04/15 05/23/19 Oxybutynin Chloride [Ditropan] 10 mg PO BID 11/28/15 05/23/19 Carboxymethylcellulose Sodium 1 drop BOTH EYES BID PRN 06/30/16 05/23/19 [Refresh Tears] Ibuprofen [Motrin] 800 mg PO TID 06/30/16 05/23/19 Levothyroxine Sodium [Synthroid] 100 mcg PO DAILY 06/30/16 05/23/19 oxyCODONE-APAP 5-325MG [Percocet 1 tab PO HS 06/30/16 05/23/19 5-325 mg] buPROPion HCL [Wellbutrin XL] 300 mg PO DAILY 02/04/17 05/23/19 Nystatin 100,000 Unit/ml Susp 500,000 units PO QID PRN 01/10/18 05/23/19 [Mycostatin Oral Susp] Cholecalciferol (Vitamin D3) 2,000 unit PO DAILY 06/16/18 05/23/19 [Vitamin D3] Docusate [Colace] 100 mg PO BID 06/16/18 05/23/19 Multivitamins, Thera [Multivitamin 1 tab PO DAILY 01/23/19 05/23/19 (formulary)] Vitamin B Complex 1 cap PO DAILY 01/23/19 05/23/19 Bimatoprost [Lumigan .01% Ophth 1 drop BOTH EYES HS 05/23/19 05/23/19 Soln] Fluorometholone 0.1% Ophth Kathy 1 drops BOTH EYES QID 05/23/19 05/23/19 [Fml] Hyoscyamine Sulfate [Levsin-Sl] 0.125 mg SL Q6H PRN 05/23/19 05/23/19 Sennosides [Ex-Lax Maximum 75 mg PO DAILY 05/23/19 05/23/19 Strength] Sulfamethox-Tmp 800-160Mg [Bactrim 1 tab PO DAILY PRN 05/23/19 05/23/19 DS 800-160 mg] Previous Rx's Medication Instructions Recorded Omeprazole [PriLOSEC] 20 mg PO AC-BID 15 Days capsule. 02/13/15 Allergies Allergy/AdvReac Type Severity Reaction Status Date / Time adhesive tape Allergy Rash/Hives Verified 05/23/19 17:10 ciprofloxacin [From Cipro] Allergy Rash/Hives/ Verified 05/23/19 17:10 Nausea/Vomi ting ciprofloxacin HCl Allergy Rash/Hives Verified 05/23/19 17:10 [From Cipro] colesevelam [From WelChol] Allergy Rash/Hives Verified 05/23/19 17:10 colesevelam HCl Allergy Rash/Hives Verified 05/23/19 17:10 [From WelChol] lamivudine Allergy Rash/Hives Verified 05/23/19 17:10 latex Allergy Dyspnea Verified 05/23/19 17:10 levofloxacin [From Levaquin] Allergy Rash/Hives/ Verified 05/23/19 17:10 Fever prochlorperazine edisylate Allergy Anaphylaxis Verified 05/23/19 17:10 [From Compazine] prochlorperazine maleate Allergy Anaphylaxis Verified 05/23/19 17:10 [From Compazine] vancomycin Allergy Rash/Hives/ Verified 05/23/19 17:10 Fever zidovudine Allergy Rash/Hives Verified 05/23/19 17:10 nitrofurantoin AdvReac Nausea & Verified 05/23/19 17:10 [From Macrobid] Vomiting/Dizziness nitroglycerin AdvReac cervical Verified 05/23/19 17:10 fusion spasms tramadol HCl [From Ultram] AdvReac WEAKNESS, Verified 05/23/19 17:10 DIZZYNESS zolpidem [From Ambien] AdvReac SLEEP Verified 05/23/19 17:10 WALKING COMBID Allergy Rash/Hives Uncoded 05/23/19 17:10 Review of Systems ROS Statement: Those systems with pertinent positive or pertinent negative responses have been documented in the HPI. ROS Other: All systems not noted in ROS Statement are negative. Past Medical History Past Medical History: Chest Pain / Angina, Eye Disorder, Fibromyalgia, GERD/Reflux, Memory Impairment, Osteoarthritis (OA), Pneumonia, Thyroid Disorder Additional Past Medical History / Comment(s): . 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 MINOR, OCC Short term memory loss. DDD Cervical, Thoracic, Lumbar levels. Chronic Pain syndrome in Back. Proctosigmoiditis w/ Colostomy. Diverticulosis. Neuropathy kalyani legs/feet. Migraines. Veritgo. Glaucoma kalyani. KEISHA-BARRE, septic shock, History of Any Multi-Drug Resistant Organisms: C-DIFF Date of last positivie culture/infection: 2010 MDRO Source:: stool Past Surgical History: Adenoidectomy, Back Surgery, Bladder Surgery, Bowel Resection, Breast Surgery, Cholecystectomy, Heart Catheterization, Hysterectomy, Joint Replacement, Tonsillectomy Additional Past Surgical History / Comment(s): 12/06/13 Cardiac cath-normal. ce rvical Fusion, Back surgury-rods/screws/cage, partial bowel resection with colostomy, total RIGHT KNEE REPLACEMENT, L knee arthroscopy, bladder suspension, cataracts breast augmentation. hip replacedment knee replacement Past Anesthesia/Blood Transfusion Reactions: Family History of Problems w/ Anesthesia, Postoperative Nausea & Vomiting (PONV) Additional Past Anesthesia/Blood Transfusion Reaction / Comment(s): FAMILY HAS PONV. Past Psychological History: Depression Smoking Status: Never smoker Past Alcohol Use History: None Reported Past Drug Use History: None Reported - Past Family History Father Family Medical History: Cancer, Musculoskeletal Disorder, Neurologic Disorder Additional Family Medical History / Comment(s): Father at 77 yrs. He had parkinson's dx. Mother Family Medical History: Cancer Additional Family Medical History / Comment(s): Mother had breast cancer. She is alive and 82 yrs old. General Exam - General Exam Comments Initial Comments: GENERAL: Patient is well-developed and well-nourished. Patient is nontoxic and well- hydrated and is in mild distress. ENT: Neck is soft and supple. No significant lymphadenopathy is noted. Oropharynx is clear. Moist mucous membranes. Neck has full range of motion without eliciting any pain. EYES: The sclera were anicteric and conjunctiva were pink and moist. Extraocular movements were intact and pupils were equal round and reactive to light. Eyelids were unremarkable. PULMONARY: Unlabored respirations. Good breath sounds bilaterally. No audible rales rhonchi or wheezing was noted. CARDIOVASCULAR: There is a regular rate and rhythm without any murmurs gallops or rubs. ABDOMEN: Soft and nontender with normal bowel sounds. SKIN: Skin is clear with no lesions or rashes and otherwise unremarkable. NEUROLOGIC: Patient is alert and oriented 3 cranial nerves II through XII grossly intact motor and sensory are also intact. Cerebellar exam grossly intact. MUSCULOSKELETAL: Normal extremities with adequate strength and full range of motion. No lower extremity swelling or edema. No calf tenderness. LYMPHATICS: No significant lymphadenopathy is noted PSYCHIATRIC: Normal psychiatric evaluation. Limitations: no limitations Course Vital Signs 05/23/19 05/23/19 05/23/19 15:54 15:55 15:59 Temperature 98.3 F Pulse Rate 97 75 Respiratory 18 18 18 Rate Blood Pressure 143/95 O2 Sat by Pulse 96 96 Oximetry 05/23/19 05/23/19 05/23/19 16:00 16:26 16:30 Temperature Pulse Rate 80 77 77 Respiratory 12 16 16 Rate Blood Pressure 143/95 108/70 108/70 O2 Sat by Pulse 94 L 99 98 Oximetry 05/23/19 05/23/19 05/23/19 17:00 17:30 18:00 Temperature Pulse Rate 88 91 95 Respiratory 20 17 20 Rate Blood Pressure 133/81 117/68 110/62 O2 Sat by Pulse 95 98 Oximetry 05/23/19 18:08 Temperature Pulse Rate 95 Respiratory 20 Rate Blood Pressure 110/62 O2 Sat by Pulse Oximetry Medical Decision Making - Medical Decision Making EKG shows normal sinus rhythm at 74 bpm LA interval 172 QRS is 92 QT interval 390 QTC is 435. Patient's EKG shows no ST segment elevation or depression Patient did not want nitroglycerin and because of her GERD she does not want aspirin. I spoke with Dr. Pressley he agreed to admit the patient admitted the patient I started the patient heparin patient refused the aspirin and nitro. I consult cardiology I wrote admitting orders. Chest x-ray showed no acute abnormality. - Lab Data Result diagrams: 05/23/19 15:55 05/23/19 17:31 Lab Results 05/23/19 05/23/19 05/23/19 Range/Units 15:55 15:55 15:55 WBC 9.6 (3.8-10.6) k/uL RBC 4.25 (3.80-5.40) m/uL Hgb 12.4 (11.4-16.0) gm/dL Hct 37.9 (34.0-46.0) % MCV 89.1 (80.0-100.0) fL MCH 29.2 (25.0-35.0) pg MCHC 32.8 (31.0-37.0) g/dL RDW 14.7 (11.5-15.5) % Plt Count 233 (150-450) k/uL Neutrophils % 67 % Lymphocytes % 23 % Monocytes % 4 % Eosinophils % 2 % Basophils % 3 % Neutrophils # 6.4 (1.3-7.7) k/uL Lymphocytes # 2.2 (1.0-4.8) k/uL Monocytes # 0.4 (0-1.0) k/uL Eosinophils # 0.2 (0-0.7) k/uL Basophils # 0.3 H (0-0.2) k/uL PT 9.6 (9.0-12.0) sec INR 0.9 (<1.2) APTT 23.9 (22.0-30.0) sec Sodium (137-145) mmol/L Potassium (3.5-5.1) mmol/L Chloride (98-107) mmol/L Carbon Dioxide (22-30) mmol/L Anion Gap mmol/L BUN (7-17) mg/dL Creatinine (0.52-1.04) mg/dL Est GFR (CKD-EPI)AfAm (>60 ml/min/1.73 sqM) Est GFR (CKD-EPI)NonAf (>60 ml/min/1.73 sqM) Glucose (74-99) mg/dL Calcium (8.4-10.2) mg/dL Magnesium (1.6-2.3) mg/dL Total Bilirubin (0.2-1.3) mg/dL AST (14-36) U/L ALT (9-52) U/L Alkaline Phosphatase (38-126) U/L Troponin I 0.014 (0.000-0.034) ng/mL Total Protein (6.3-8.2) g/dL Albumin (3.5-5.0) g/dL 05/23/19 Range/Units 17:31 WBC (3.8-10.6) k/uL RBC (3.80-5.40) m/uL Hgb (11.4-16.0) gm/dL Hct (34.0-46.0) % MCV (80.0-100.0) fL MCH (25.0-35.0) pg MCHC (31.0-37.0) g/dL RDW (11.5-15.5) % Plt Count (150-450) k/uL Neutrophils % % Lymphocytes % % Monocytes % % Eosinophils % % Basophils % % Neutrophils # (1.3-7.7) k/uL Lymphocytes # (1.0-4.8) k/uL Monocytes # (0-1.0) k/uL Eosinophils # (0-0.7) k/uL Basophils # (0-0.2) k/uL PT (9.0-12.0) sec INR (<1.2) APTT (22.0-30.0) sec Sodium 141 (137-145) mmol/L Potassium 4.0 (3.5-5.1) mmol/L Chloride 108 H (98-107) mmol/L Carbon Dioxide 23 (22-30) mmol/L Anion Gap 10 mmol/L BUN 12 (7-17) mg/dL Creatinine 0.51 L (0.52-1.04) mg/dL Est GFR (CKD-EPI)AfAm >90 (>60 ml/min/1.73 sqM) Est GFR (CKD-EPI)NonAf >90 (>60 ml/min/1.73 sqM) Glucose 94 (74-99) mg/dL Calcium 9.8 (8.4-10.2) mg/dL Magnesium 2.3 (1.6-2.3) mg/dL Total Bilirubin 0.3 (0.2-1.3) mg/dL AST 23 (14-36) U/L ALT 22 (9-52) U/L Alkaline Phosphatase 98 (38-126) U/L Troponin I (0.000-0.034) ng/mL Total Protein 7.1 (6.3-8.2) g/dL Albumin 4.1 (3.5-5.0) g/dL Critical Care Time Critical Care Time: Yes Total Critical Care Time: 35 Disposition Clinical Impression: Unstable angina Disposition: ADMITTED IP TO THIS HOSP Referrals: Jaskaran Pressley MD [Primary Care Provider] - 1-2 days Time of Disposition: 18:32
[2019-05-23 16:39] LABS: Basophils # (A) 0.3 k/uL (0-0.2); Basophils % (A) 3 %; Eosinophils # (A) 0.2 k/uL (0-0.7); Eosinophils % (A) 2 %; HCT 37.9 % (34.0-46.0); HGB 12.4 gm/dL (11.4-16.0); Lymphocytes # (A) 2.2 k/uL (1.0-4.8); Lymphocytes % (A) 23 %; MCH 29.2 pg (25.0-35.0); MCHC 32.8 g/dL (31.0-37.0); MCV 89.1 fL (80.0-100.0); Mean Platelet Volume 8.3; Monocytes # (A) 0.4 k/uL (0-1.0); Monocytes % (A) 4 %; Neutrophils # (A) 6.4 k/uL (1.3-7.7); Neutrophils % (A) 67 %; Platelet Count 233 k/uL (150-450); RBC 4.25 m/uL (3.80-5.40); RDW 14.7 % (11.5-15.5); WBC 9.6 k/uL (3.8-10.6)
--- NOTE | 2019-05-23 16:47 | XR ---
EXAMINATION TYPE: XR chest 2V DATE OF EXAM: 05/23/2019 COMPARISON: 01/24/2019 HISTORY: Chest pain TECHNIQUE: Frontal and lateral views of the chest are obtained. FINDINGS: Heart and mediastinum are normal. Lungs are clear. Diaphragm is normal. Bony thorax appear s normal. IMPRESSION: Normal chest. No change.
[2019-05-23 17:00] LABS: INR 0.9 (<1.2); Partial Thromboplastin Time 23.9 sec (22.0-30.0); Prothrombin Time 9.6 sec (9.0-12.0)
[2019-05-23 17:51] LABS: ALT 22 U/L (9-52); AST 23 U/L (14-36); African American GFR (CKD) >90 (>60 ml/min/1.73 sqM); Albumin 4.1 g/dL (3.5-5.0); Alkaline Phosphatase 98 U/L (38-126); Anion Gap 10 mmol/L; Blood Urea Nitrogen 12 mg/dL (7-17); Calcium 9.8 mg/dL (8.4-10.2); Carbon Dioxide 23 mmol/L (22-30); Chloride 108 mmol/L (98-107); Glucose 94 mg/dL (74-99); Magnesium 2.3 mg/dL (1.6-2.3); Non-African American GFR(CKD) >90 (>60 ml/min/1.73 sqM); Sodium 141 mmol/L (137-145); Total Bilirubin 0.3 mg/dL (0.2-1.3); Total Protein 7.1 g/dL (6.3-8.2)
[2019-05-23] MEDS ORDERED: HEPARIN SODIUM,PORCINE 5,000 UNIT/ML 1 ML VIAL IV ONE (18:30)
[2019-05-23] MEDS ORDERED: HEPARIN SOD,PORK IN 0.45% NACL 25,000 UNIT in 0.45% NACL 1 250ML.BAG IV SCH (18:30)
[2019-05-23] MEDS ORDERED: NITROGLYCERIN SL TABS 0.4 MG TAB SUBLINGUAL PRN (18:35)
[2019-05-23 22:30] VITALS: RESP 18
[2019-05-23] MEDS: oxyCODONE-APAP 10-325MG 1 EACH TAB PO PRN (22:35)
[2019-05-23] MEDS: PANTOPRAZOLE 40 MG/10 ML VIAL IVP SCH (22:37)
[2019-05-24] MEDS: oxyCODONE-APAP 10-325MG 1 EACH TAB PO PRN (04:36)
[2019-05-24 06:43] LABS: Cholesterol 229 mg/dL (<200); HDL Cholesterol 47 mg/dL (40-60); LDL Cholesterol,Calculated 139 mg/dL (0-99); Triglycerides 215 mg/dL (<150)
[2019-05-24] MEDS ORDERED: ARTIFICIAL TEARS-HYPROMELLOSE DROPS 15 ML BTL BOTH EYES PRN (08:33)
[2019-05-24] MEDS ORDERED: HYOSCYAMINE SULFATE 0.125 MG TAB PO PRN (08:33)
[2019-05-24] MEDS ORDERED: SULFAMETHOX-TMP 800-160MG 1 EACH TAB PO PRN (08:33)
--- NOTE | 2019-05-24 08:33 | P.HPIM ---
History of Present Illness H&P Date: 05/24/19 Chief Complaint: Chest pain. This is a history of physical 64-year-old white female with known history of bladder atony who was recently diagnosed with uveitis with potential Sjogren syndrome. The patient has been complaining of significant chest pressure and has the feeling that this could be acid reflux, as she does struggle with this. The patient was admitted for appropriate rule out myocardial infarction. No significant diaphoresis or radiation of the substernal epigastric pain. No significant nausea or diaphoresis stated. Patient is nonsmoker. Review of Systems Constitutional: Denies chills, Denies fever Eyes: denies blurred vision, denies pain Ears, nose, mouth and throat: Denies headache, Denies sore throat Cardiovascular: Reports chest pain, Denies shortness of breath Respiratory: Denies cough Genitourinary: Denies dysuria, Denies hematuria Past Medical History Past Medical History: Chest Pain / Angina, Eye Disorder, Fibromyalgia, GERD/Reflux, Memory Impairment, Osteoarthritis (OA), Pneumonia, Thyroid Disorder Additional Past Medical History / Comment(s): . 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 MINOR, OCC Short term memory loss. DDD Cervical, Thoracic, Lumbar levels. Chronic Pain syndrome in Back. Proctosigmoiditis w/ Colostomy. Diverticulosis. Neuropathy kalyani legs/feet. Migraines. Veritgo. Glaucoma kalyani. KEISHA-BARRE, septic shock, History of Any Multi-Drug Resistant Organisms: C-DIFF Date of last positivie culture/infection: 2010 MDRO Source:: stool Past Surgical History: Adenoidectomy, Back Surgery, Bladder Surgery, Bowel Resection, Breast Surgery, Cholecystectomy, Heart Catheterization, Hysterectomy, Joint Replacement, Tonsillectomy Additional Past Surgical History / Comment(s): 12/06/13 Cardiac cath-normal. cervical Fusion, Back surgury-rods/screws/cage, partial bowel resection with colostomy, total RIGHT KNEE REPLACEMENT, L knee arthroscopy, bladder suspension, cataracts breast augmentation. hip replacedment knee replacement Past Anesthesia/Blood Transfusion Reactions: Family History of Problems w/ Anesthesia, Postoperative Nausea & Vomiting (PONV) Additional Past Anesthesia/Blood Transfusion Reaction / Comment(s): FAMILY HAS PONV. Past Psychological History: Depression Additional Psychological History / Comment(s): Pt resieds alone. sesonal depression Smoking Status: Never smoker Past Alcohol Use History: None Reported Past Drug Use History: None Reported - Past Family History Father Family Medical History: Cancer, Musculoskeletal Disorder, Neurologic Disorder Additional Family Medical History / Comment(s): Father at 77 yrs. He had parkinson's dx. Mother Family Medical History: Cancer Additional Family Medical History / Comment(s): Mother had breast cancer. She is alive and 82 yrs old. Medications and Allergies Home Medications Medication Instructions Recorded Confirmed Type Omeprazole [PriLOSEC] 20 mg PO AC-BID 15 Days capsule. 02/13/15 05/23/19 Rx Gabapentin 800 mg PO TID 09/04/15 05/23/19 History Oxybutynin Chloride [Ditropan] 10 mg PO BID 11/28/15 05/23/19 History Carboxymethylcellulose Sodium 1 drop BOTH EYES BID PRN 06/30/16 05/23/19 History [Refresh Tears] Ibuprofen [Motrin] 800 mg PO TID 06/30/16 05/23/19 History Levothyroxine Sodium [Synthroid] 100 mcg PO DAILY 06/30/16 05/23/19 History oxyCODONE-APAP 5-325MG [Percocet 1 tab PO HS 06/30/16 05/23/19 History 5-325 mg] buPROPion HCL [Wellbutrin XL] 300 mg PO DAILY 02/04/17 05/23/19 History Nystatin 100,000 Unit/ml Susp 500,000 units PO QID PRN 01/10/18 05/23/19 History [Mycostatin Oral Susp] Cholecalciferol (Vitamin D3) 2,000 unit PO DAILY 06/16/18 05/23/19 History [Vitamin D3] Docusate [Colace] 100 mg PO BID 06/16/18 05/23/19 History Multivitamins, Thera [Multivitamin 1 tab PO DAILY 01/23/19 05/23/19 History (formulary)] Vitamin B Complex 1 cap PO DAILY 01/23/19 05/23/19 History Bimatoprost [Lumigan .01% Ophth 1 drop BOTH EYES HS 05/23/19 05/23/19 History Soln] Fluorometholone 0.1% Ophth Kathy 1 drops BOTH EYES QID 05/23/19 05/23/19 History [Fml] Hyoscyamine Sulfate [Levsin-Sl] 0.125 mg SL Q6H PRN 05/23/19 05/23/19 History Sennosides [Ex-Lax Maximum 75 mg PO DAILY 05/23/19 05/23/19 History Strength] Sulfamethox-Tmp 800-160Mg [Bactrim 1 tab PO DAILY PRN 05/23/19 05/23/19 History DS 800-160 mg] Allergies Allergy/AdvReac Type Severity Reaction Status Date / Time adhesive tape Allergy Rash/Hives Verified 05/23/19 17:10 ciprofloxacin [From Cipro] Allergy Rash/Hives/ Verified 05/23/19 17:10 Nausea/Vomi ting ciprofloxacin HCl Allergy Rash/Hives Verified 05/23/19 17:10 [From Cipro] colesevelam [From WelChol] Allergy Rash/Hives Verified 05/23/19 17:10 colesevelam HCl Allergy Rash/Hives Verified 05/23/19 17:10 [From WelChol] lamivudine Allergy Rash/Hives Verified 05/23/19 17:10 latex Allergy Dyspnea Verified 05/23/19 17:10 levofloxacin [From Levaquin] Allergy Rash/Hives/ Verified 05/23/19 17:10 Fever prochlorperazine edisylate Allergy Anaphylaxis Verified 05/23/19 17:10 [From Compazine] prochlorperazine maleate Allergy Anaphylaxis Verified 05/23/19 17:10 [From Compazine] vancomycin Allergy Rash/Hives/ Verified 05/23/19 17:10 Fever zidovudine Allergy Rash/Hives Verified 05/23/19 17:10 nitrofurantoin AdvReac Nausea & Verified 05/23/19 17:10 [From Macrobid] Vomiting/Dizziness nitroglycerin AdvReac cervical Verified 05/23/19 17:10 fusion spasms tramadol HCl [From Ultram] AdvReac WEAKNESS, Verified 05/23/19 17:10 DIZZYNESS zolpidem [From Ambien] AdvReac SLEEP Verified 05/23/19 17:10 WALKING COMBID Allergy Rash/Hives Uncoded 05/23/19 17:10 Physical Exam Vitals: Vital Signs Temp Pulse Pulse Resp BP BP Pulse Ox 05/24/19 03:56 97.0 F L 78 17 111/56 99 05/23/19 23:24 70 18 05/23/19 21:59 97.5 F L 77 18 120/58 95 05/23/19 21:25 97.9 F 83 17 113/62 98 05/23/19 19:37 88 16 115/89 99 05/23/19 18:44 88 16 113/85 99 05/23/19 18:08 95 20 110/62 05/23/19 18:00 95 20 110/62 05/23/19 17:30 91 17 117/68 98 05/23/19 17:00 88 20 133/81 95 05/23/19 16:30 77 16 108/70 98 05/23/19 16:26 77 16 108/70 99 05/23/19 16:00 80 12 143/95 94 L 05/23/19 15:59 18 05/23/19 15:55 98.3 F 75 18 143/95 96 05/23/19 15:54 97 18 96 Intake and Output 05/23/19 05/24/19 05/24/19 22:59 06:59 14:59 Intake Total 60.173 Output Total 300 Balance -239.827 Intake: Intake, IV Titration 60.173 Amount Heparin Sod,Pork in 0.45% 60.173 NaCl 25,000 unit In 0.45 % NaCl 1 250ml.bag @ 12 UNITS/KG/HR 8.981 mls/hr IV .Q24H [facility] Rx#: [id number] Output: Urine 300 Other: Voiding Method Indwelling Catheter Weight 74.843 kg 77.1 kg - Constitutional General appearance: no acute distress - EENT Eyes: EOMI - Neck Neck: no lymphadenopathy - Respiratory Respiratory: bilateral: CTA - Cardiovascular Rhythm: regular Heart sounds: normal: S1, S2 Abnormal Heart Sounds: no S3 Gallop - Gastrointestinal General gastrointestinal: soft, no tenderness - Neurologic Neurologic: CNII-XII intact Results CBC & Chem 7: 05/23/19 15:55 05/23/19 17:31 Labs: Abnormal Lab Results - Last 24 Hours (Table) 05/23/19 05/23/19 05/24/19 Range/Units 15:55 17:31 00:23 Basophils # 0.3 H (0-0.2) k/uL APTT 39.6 H (22.0-30.0) sec Chloride 108 H (98-107) mmol/L Creatinine 0.51 L (0.52-1.04) mg/dL Triglycerides (<150) mg/dL Cholesterol (<200) mg/dL LDL Cholesterol, Calc (0-99) mg/dL 05/24/19 05/24/19 Range/Units 05:32 05:32 Basophils # (0-0.2) k/uL APTT 41.0 H (22.0-30.0) sec Chloride (98-107) mmol/L Creatinine (0.52-1.04) mg/dL Triglycerides 215 H (<150) mg/dL Cholesterol 229 H (<200) mg/dL LDL Cholesterol, Calc 139 H (0-99) mg/dL Thrombosis Risk Factor Assmnt - Choose All That Apply Each Factor Represents 1 point: Obesity (BMI >25) Each Risk Factor Represents 2 Points: Age 61-74 years Thrombosis Risk Factor Assessment Total Risk Factor Score: 3 Thrombosis Risk Factor Assessment Level: Moderate Risk Assessment and Plan (1) Atypical chest pain Current Visit: No Status: Acute Code(s): R07.89 - OTHER CHEST PAIN SNOMED Code(s): 102086181 (2) Esophageal dysfunction Current Visit: No Status: Acute Code(s): K22.4 - DYSKINESIA OF ESOPHAGUS SNOMED Code(s): 288008200 (3) GERD (gastroesophageal reflux disease) Current Visit: No Status: Acute Code(s): K21.9 - GASTRO-ESOPHAGEAL REFLUX DISEASE WITHOUT ESOPHAGITIS SNOMED Code(s): 078874265 (4) History of creation of ostomy Current Visit: No Status: Acute Code(s): Z93.9 - ARTIFICIAL OPENING STATUS, UNSPECIFIED SNOMED Code(s): 877808900 (5) Hypothyroidism Current Visit: No Status: Acute Code(s): E03.9 - HYPOTHYROIDISM, UNSPECIFIED SNOMED Code(s): 42220802 (6) Major depressive disorder, recurrent severe without psychotic features Current Visit: No Status: Acute Priority: High Code(s): F33.2 - MAJOR DEPRESSV DISORDER, RECURRENT SEVERE W/O PSYCH FEATURES SNOMED Code(s): 36 547498 (7) Mild asthma Current Visit: No Status: Acute Code(s): J45.998 - OTHER ASTHMA SNOMED Code(s): 758434146 (8) Depression Current Visit: No Status: Chronic Code(s): F32.9 - MAJOR DEPRESSIVE DISORDER, SINGLE EPISODE, UNSPECIFIED SNOMED Code(s): 46756570 Plan: At this point, there is no significant enzymatic elevation. Appreciate cardiology input. Keep nothing by mouth if we are going to do cardiology testing. Reconcile home medications as necessary. Anticipate discharge in next 24 hours if current trajectory of recovery holds.
--- NOTE | 2019-05-24 08:50 | P.CRDCN ---
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 She was in her usual state of health until yesterday when she started experiencing discomfort in the epigastric area, without any radiation to the arm or neck or shoulders, and without any associated symptoms of shortness of breath, sweating, dizziness, or syncope. The patient described the discomfort as a burning sensation. He is quite insistent that the discomfort is related to acid reflux which she was diagnosed in the past. The EKG showed sinus rhythm without significant ST or T- wave abnormalities. The cardiac enzymes were checked and came in to be unrema rkable. The chest x-ray did not show any acute abnormalities. The patient does not have any history of diabetes or hypertension and or dyslipidemia. She underwent an echocardiogram in 2015 and that was unremarkable. She underwent a heart catheterization in 2013 and that was also unremarkable. She sustained chest pain free at this point. The patient is insisting about discharging home and having the test as an outpatient. I am going to get the patient up and around and if she is asymptomatic she possibly can be discharged home and I will follow-up with the patient in the office where a stress test to be done. Past Medical History Past Medical History: Chest Pain / Angina, Eye Disorder, Fibromyalgia, GERD/Reflux, Memory Impairment, Osteoarthritis (OA), Pneumonia, Thyroid Disorder Additional Past Medical History / Comment(s): . 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 MINOR, OCC Short term memory loss. DDD Cervical, Thoracic, Lumbar levels. Chronic Pain syndrome in Back. Proctosigmoiditis w/ Colostomy. Divert iculosis. Neuropathy kalyani legs/feet. Migraines. Veritgo. Glaucoma kalyani. KEISHA- BARRE, septic shock, History of Any Multi-Drug Resistant Organisms: C-DIFF Date of last positivie culture/infection: 2010 MDRO Source:: stool Past Surgical History: Adenoidectomy, Back Surgery, Bladder Surgery, Bowel Resec tion, Breast Surgery, Cholecystectomy, Heart Catheterization, Hysterectomy, Joint Replacement, Tonsillectomy Additional Past Surgical History / Comment(s): 12/06/13 Cardiac cath-normal. cervical Fusion, Back surgury-rods/screws/cage, partial bowel resection with colostomy, total RIGHT KNEE REPLACEMENT, L knee arthroscopy, bladder suspension, cataracts breast augmentation. hip replacedment knee replacement Past Anesthesia/Blood Transfusion Reactions: Family History of Problems w/ Anesthesia, Postoperative Nausea & Vomiting (PONV) Additional Past Anesthesia/Blood Transfusion Reaction / Comment(s): FAMILY HAS PONV. Past Psychological History: Depression Additional Psychological History / Comment(s): Pt resieds alone. sesonal depression Smoking Status: Never smoker Past Alcohol Use History: None Reported Past Drug Use History: None Reported - Past Family History Father Family Medical History: Cancer, Musculoskeletal Disorder, Neurologic Disorder Additional Family Medical History / Comment(s): Father at 77 yrs. He had parkinson's dx. Mother Family Medical History: Cancer Additional Family Medical History / Comment(s): Mother had breast cancer. She is alive and 82 yrs old. Medications and Allergies Home Medications Medication Instructions Recorded Confirmed Type Omeprazole [PriLOSEC] 20 mg PO AC-BID 15 Days capsule. 02/13/15 05/23/19 Rx Gabapentin 800 mg PO TID 09/04/15 05/23/19 History Oxybutynin Chloride [Ditropan] 10 mg PO BID 11/28/15 05/23/19 History Carboxymethylcellulose Sodium 1 drop BOTH EYES BID PRN 06/30/16 05/23/19 History [Refresh Tears] Ibuprofen [Motrin] 800 mg PO TID 06/30/16 05/23/19 History Levothyroxine Sodium [Synthroid] 100 mcg PO DAILY 06/30/16 05/23/19 History oxyCODONE-APAP 5-325MG [Percocet 1 tab PO HS 06/30/16 05/23/19 History 5-325 mg] buPROPion HCL [Wellbutrin XL] 300 mg PO DAILY 02/04/17 05/23/19 History Nystatin 100,000 Unit/ml Susp 500,000 units PO QID PRN 01/10/18 05/23/19 History [Mycostatin Oral Susp] Cholecalciferol (Vitamin D3) 2,000 unit PO DAILY 06/16/18 05/23/19 History [Vitamin D3] Docusate [Colace] 100 mg PO BID 06/16/18 05/23/19 History Multivitamins, Thera [Multivitamin 1 tab PO DAILY 01/23/19 05/23/19 History (formulary)] Vitamin B Complex 1 cap PO DAILY 01/23/19 05/23/19 History Bimatoprost [Lumigan .01% Ophth 1 drop BOTH EYES HS 05/23/19 05/23/19 History Soln] Fluorometholone 0.1% Ophth Kathy 1 drops BOTH EYES QID 05/23/19 05/23/19 History [Fml] Hyoscyamine Sulfate [Levsin-Sl] 0.125 mg SL Q6H PRN 05/23/19 05/23/19 History Sennosides [Ex-Lax Maximum 75 mg PO DAILY 05/23/19 05/23/19 History Strength] Sulfamethox-Tmp 800-160Mg [Bactrim 1 tab PO DAILY PRN 05/23/19 05/23/19 History DS 800-160 mg] Allergies Allergy/AdvReac Type Severity Reaction Status Date / Time adhesive tape Allergy Rash/Hives Verified 05/23/19 17:10 ciprofloxacin [From Cipro] Allergy Rash/Hives/ Verified 05/23/19 17:10 Nausea/Vomi ting ciprofloxacin HCl Allergy Rash/Hives Verified 05/23/19 17:10 [From Cipro] colesevelam [From WelChol] Allergy Rash/Hives Verified 05/23/19 17:10 colesevelam HCl Allergy Rash/Hives Verified 05/23/19 17:10 [From WelChol] lamivudine Allergy Rash/Hives Verified 05/23/19 17:10 latex Allergy Dyspnea Verified 05/23/19 17:10 levofloxacin [From Levaquin] Allergy Rash/Hives/ Verified 05/23/19 17:10 Fever prochlorperazine edisylate Allergy Anaphylaxis Verified 05/23/19 17:10 [From Compazine] prochlorperazine maleate Allergy Anaphylaxis Verified 05/23/19 17:10 [From Compazine] vancomycin Allergy Rash/Hives/ Verified 05/23/19 17:10 Fever zidovudine Allergy Rash/Hives Verified 05/23/19 17:10 nitrofurantoin AdvReac Nausea & Verified 05/23/19 17:10 [From Macrobid] Vomiting/Dizziness nitroglycerin AdvReac cervical Verified 05/23/19 17:10 fusion spasms tramadol HCl [From Ultram] AdvReac WEAKNESS, Verified 05/23/19 17:10 DIZZYNESS zolpidem [From Ambien] AdvReac SLEEP Verified 05/23/19 17:10 WALKING COMBID Allergy Rash/Hives Uncoded 05/23/19 17:10 Physical Exam Vitals: Vital Signs Temp Pulse Pulse Resp BP BP Pulse Ox 05/24/19 03:56 97.0 F L 78 17 111/56 99 05/23/19 23:24 70 18 05/23/19 21:59 97.5 F L 77 18 120/58 95 05/23/19 21:25 97.9 F 83 17 113/62 98 05/23/19 19:37 88 16 115/89 99 05/23/19 18:44 88 16 113/85 99 05/23/19 18:08 95 20 110/62 05/23/19 18:00 95 20 110/62 05/23/19 17:30 91 17 117/68 98 05/23/19 17:00 88 20 133/81 95 05/23/19 16:30 77 16 108/70 98 05/23/19 16:26 77 16 108/70 99 05/23/19 16:00 80 12 143/95 94 L 05/23/19 15:59 18 05/23/19 15:55 98.3 F 75 18 143/95 96 05/23/19 15:54 97 18 96 Intake and Output 05/23/19 05/24/19 05/24/19 22:59 06:59 14:59 Intake Total 60.173 Output Total 300 Balance -239.827 Intake: Intake, IV Titration 60.173 Amount Heparin Sod,Pork in 0.45% 60.173 NaCl 25,000 unit In 0.45 % NaCl 1 250ml.bag @ 12 UNITS/KG/HR 8.981 mls/hr IV .Q24H [facility] Rx#: [id number] Output: Urine 300 Other: Voiding Method Indwelling Catheter Weight 74.843 kg 77.1 kg - Constitutional General appearance: no acute distress - Respiratory Respiratory: bilateral: CTA - Cardiovascular Rhythm: regular Heart sounds: normal: S1, S2 Results 05/23/19 15:55 05/23/19 17:31 Cardiac Enzymes 05/23/19 05/23/19 05/23/19 Range/Units 15:55 17:31 22:42 AST 23 (14-36) U/L Troponin I 0.014 <0.012 (0.000-0.034) ng/mL Coagulation 05/23/19 05/24/19 05/24/19 Range/Units 15:55 00:23 05:32 PT 9.6 (9.0-12.0) sec APTT 23.9 39.6 H 41.0 H (22.0-30.0) sec Lipids 05/24/19 Range/Units 05:32 Triglycerides 215 H (<150) mg/dL Cholesterol 229 H (<200) mg/dL HDL Cholesterol 47 (40-60) mg/dL CBC 05/23/19 Range/Units 15:55 WBC 9.6 (3.8-10.6) k/uL RBC 4.25 (3.80-5.40) m/uL Hgb 12.4 (11.4-16.0) gm/dL Hct 37.9 (34.0-46.0) % Plt Count 233 (150-450) k/uL Comprehensive Metabolic Panel 05/23/19 Range/Units 17:31 Sodium 141 (137-145) mmol/L Potassium 4.0 (3.5-5.1) mmol/L Chloride 108 H (98-107) mmol/L Carbon Dioxide 23 (22-30) mmol/L BUN 12 (7-17) mg/dL Creatinine 0.51 L (0.52-1.04) mg/dL Glucose 94 (74-99) mg/dL Calcium 9.8 (8.4-10.2) mg/dL AST 23 (14-36) U/L ALT 22 (9-52) U/L Alkaline Phosphatase 98 (38-126) U/L Total Protein 7.1 (6.3-8.2) g/dL Albumin 4.1 (3.5-5.0) g/dL Current Medications Generic Name Dose Route Start Last Admin Trade Name Freq PRN Reason Stop Dose Admin Artificial Tears 1 drops 05/24/19 08:33 Artificial Tear Drops BOTH EYES BID PRN Dry Eye(s) Aspirin 325 mg 05/24/19 09:00 Aspirin PO DAILY [facility] Bupropion HCl 300 mg 05/24/19 09:00 Wellbutrin Xl PO DAILY [facility] Cholecalciferol 2,000 unit 05/24/19 09:00 Vitamin D3 (25 Mcg = 1000 Iu) PO DAILY [facility] Docusate Sodium 100 mg 05/24/19 09:00 Colace PO BID [facility] Fluorometholone 1 drops 05/24/19 09:00 Fml BOTH EYES QID [facility] Gabapentin 800 mg 05/24/19 09:00 Neurontin PO TID [facility] Hyoscyamine 0.125 mg 05/24/19 08:33 Levsin PO Q6H PRN GI Upset Heparin Sodium/Sodium Chloride 250 mls @ 8.981 mls/hr 05/23/19 18:30 05/24/19 01:24 25,000 unit/ Sodium Chloride IV 15 units/kg/hr .Q24H ANA MARÍA 11.226 mls/hr Titration Protocol 12 UNITS/KG/HR Ibuprofen 800 mg 05/24/19 09:00 Motrin PO TID [facility] Latanoprost 1 drops 05/24/19 21:00 Xalatan 0.005% BOTH EYES HS [facility] Levothyroxine Sodium 100 mcg 05/24/19 09:00 Synthroid PO DAILY@0630 [facility] Multivitamins 1 each 05/24/19 09:00 Theragran PO DAILY [facility] Nitroglycerin 0.4 mg 05/23/19 18:35 Nitrostat SUBLINGUAL Q5M PRN Chest Pain Non-Formulary Medication 75 mg 05/24/19 09:00 Sennosides [Ex-Lax Maximum Strength] PO DAILY [facility] Oxybutynin Chloride 10 mg 05/24/19 09:00 Ditropan PO BID [facility] Oxycodone/Acetaminophen 1 each 05/24/19 21:00 Percocet 5-325 PO HS [facility] Pantoprazole Sodium 40 mg 05/23/19 21:00 05/23/19 22:37 Protonix IVP 40 mg BID [facility] Administration Trimethoprim/Sulfamethoxazole 1 each 05/24/19 08:33 Bactrim Ds PO DAILY PRN UTI SYMPTOMS Intake and Output 05/23/19 05/24/19 05/24/19 22:59 06:59 14:59 Intake Total 60.173 Output Total 300 Balance -239.827 Intake: Intake, IV Titration 60.173 Amount Heparin Sod,Pork in 0.45% 60.173 NaCl 25,000 unit In 0.45 % NaCl 1 250ml.bag @ 12 UNITS/KG/HR 8.981 mls/hr IV .Q24H [facility] Rx#: [id number] Output: Urine 300 Other: Voiding Method Indwelling Catheter Weight 74.843 kg 77.1 kg 05/23/19 15:55 05/23/19 17:31 Assessment and Plan Assessment: Assessment #1 atypical chest discomfort #2 history of colostomy Plan #1 the patient was ruled out for acute coronary event #2 I did advise the patient to undergo a stress test #3 she would like to be discharged home and have it done as an outpatient.
[2019-05-24] MEDS ORDERED: LEVOTHYROXINE 100 MCG TAB PO SCH (09:00)
[2019-05-24] MEDS ORDERED: IBUPROFEN 800 MG TAB PO SCH (09:00)
[2019-05-24] MEDS ORDERED: MULTIVITAMINS, THERA 1 EACH TAB PO SCH (09:00)
[2019-05-24] MEDS ORDERED: DOCUSATE 100 MG CAP PO SCH (09:00)
[2019-05-24] MEDS ORDERED: GABAPENTIN 400 MG CAP PO SCH (09:00)
[2019-05-24] MEDS ORDERED: buPROPion XL 300 MG TAB.ER.24H PO SCH (09:00)
[2019-05-24] MEDS ORDERED: OXYBUTYNIN CHLORIDE 5 MG TAB PO SCH (09:00)
[2019-05-24] MEDS ORDERED: CHOLECALCIFEROL 1,000 UNIT TAB PO SCH (09:00)
[2019-05-24] MEDS ORDERED: SENNOSIDES 8.6 MG TAB PO SCH (09:00)
[2019-05-24] MEDS ORDERED: ASPIRIN 325 MG TAB PO SCH (09:00)
[2019-05-24] MEDS ORDERED: NON FORMULARY DRUG (Vitamin B Complex [Vitamin B Complex] 1 CAP) PO SCH (09:00)
[2019-05-24] MEDS: PANTOPRAZOLE 40 MG/10 ML VIAL IVP SCH (09:13)
[2019-05-24] MEDS: FLUOROMETHOLONE 0.1% OPHTH DROPS 5 ML BTL BOTH EYES SCH ×2 (09:13→12:07)
[2019-05-24 11:22] VITALS: BP 131/60; TEMP 98
[2019-05-24] MEDS ORDERED: ONDANSETRON 4 MG/2 ML VIAL IVP PRN (12:01)
[2019-05-24] MEDS ORDERED: ONDANSETRON 4 MG/2 ML VIAL ONE (12:03)
--- NOTE | 2019-05-24 15:40 | P.DS ---
Providers Date of admission: 05/23/19 18:35 Attending physician: Jaskaran Pressley Consults: 05/23/19 18:35 Consult Physician Urgent Consulting Provider: [facility] Consult Reason/Comments: Unstable angina Do you want consulting provider notified?: Yes Primary care physician: Jaskaran Pressley - Discharge Diagnosis(es) (1) Atypical chest pain Current Visit: No Status: Acute (2) Esophageal dysfunction Current Visit: No Status: Acute (3) GERD (gastroesophageal reflux disease) Current Visit: No Status: Acute (4) History of creation of ostomy Current Visit: No Status: Acute (5) Hypothyroidism Current Visit: No Status: Acute (6) Major depressive disorder, recurrent severe without psychotic features Current Visit: No Status: Acute Priority: High (7) Mild asthma Current Visit: No Status: Acute (8) Depression Current Visit: No Status: Chronic Hospital Course: Admitted for atypical CP. ? GERD. Enzymes negative. Some mild nausea. Tolerating diet. Will DC to followup in 2-3 days. Patient Condition at Discharge: Stable Plan - Discharge Summary New Discharge Prescriptions: No Action Omeprazole [PriLOSEC] 20 mg PO AC-BID 15 Days capsule. Gabapentin 800 mg PO TID Oxybutynin Chloride [Ditropan] 10 mg PO BID Ibuprofen [Motrin] 800 mg PO TID Levothyroxine Sodium [Synthroid] 100 mcg PO DAILY oxyCODONE-APAP 5-325MG [Percocet 5-325 mg] 1 tab PO HS Carboxymethylcellulose Sodium [Refresh Tears] 1 drop BOTH EYES BID PRN PRN Reason: Dry Eye(S) buPROPion HCL [Wellbutrin XL] 300 mg PO DAILY Nystatin 100,000 Unit/ml Susp [Mycostatin Oral Susp] 500,000 units PO QID PRN PRN Reason: THRUSH Docusate [Colace] 100 mg PO BID Cholecalciferol (Vitamin D3) [Vitamin D3] 2,000 unit PO DAILY Multivitamins, Thera [Multivitamin (formulary)] 1 tab PO DAILY Vitamin B Complex 1 cap PO DAILY Sulfamethox-Tmp 800-160Mg [Bactrim DS 800-160 mg] 1 tab PO DAILY PRN PRN Reason: UTI SYMPTOMS Fluorometholone 0.1% Ophth Kathy [Fml] 1 drops BOTH EYES QID Hyoscyamine Sulfate [Levsin-Sl] 0.125 mg SL Q6H PRN PRN Reason: Gi Upset Sennosides [Ex-Lax Maximum Strength] 75 mg PO DAILY Bimatoprost [Lumigan .01% Ophth Soln] 1 drop BOTH EYES HS Discharge Medication List Omeprazole [PriLOSEC] 20 mg PO AC-BID 15 Days capsule. 02/13/15 [Rx] Gabapentin 800 mg PO TID 09/04/15 [History] Oxybutynin Chloride [Ditropan] 10 mg PO BID 11/28/15 [History] Carboxymethylcellulose Sodium [Refresh Tears] 1 drop BOTH EYES BID PRN 06/30/16 [History] Ibuprofen [Motrin] 800 mg PO TID 06/30/16 [History] Levothyroxine Sodium [Synthroid] 100 mcg PO DAILY 06/30/16 [History] oxyCODONE-APAP 5-325MG [Percocet 5-325 mg] 1 tab PO HS 06/30/16 [History] buPROPion HCL [Wellbutrin XL] 300 mg PO DAILY 02/04/17 [History] Nystatin 100,000 Unit/ml Susp [Mycostatin Oral Susp] 500,000 units PO QID PRN 01/10/18 [History] Cholecalciferol (Vitamin D3) [Vitamin D3] 2,000 unit PO DAILY 06/16/18 [History] Docusate [Colace] 100 mg PO BID 06/16/18 [History] Multivitamins, Thera [Multivitamin (formulary)] 1 tab PO DAILY 01/23/19 [History] Vitamin B Complex 1 cap PO DAILY 01/23/19 [History] Bimatoprost [Lumigan .01% Ophth Soln] 1 drop BOTH EYES HS 05/23/19 [History] Fluorometholone 0.1% Ophth Kathy [Fml] 1 drops BOTH EYES QID 05/23/19 [History] Hyoscyamine Sulfate [Levsin-Sl] 0.125 mg SL Q6H PRN 05/23/19 [History] Sennosides [Ex-Lax Maximum Strength] 75 mg PO DAILY 05/23/19 [History] Sulfamethox-Tmp 800-160Mg [Bactrim DS 800-160 mg] 1 tab PO DAILY PRN 05/23/19 [History] Follow up Appointment(s)/Referral(s): Jaskaran Pressley MD [Primary Care Provider] - 1-2 days Discharge Disposition: HOME SELF-CARE
[2019-05-24 16:56] VITALS: PULSE 76
[2019-05-24] MEDS ORDERED: NON FORMULARY DRUG (Omeprazole 20 MG) PO SCH (17:30)
[2019-05-24] MEDS ORDERED: oxyCODONE-APAP 5-325MG 1 EACH TAB PO SCH (21:00)
[2019-05-24] MEDS ORDERED: LATANOPROST 0.005% OPHTH DROPS 2.5 ML BTL BOTH EYES SCH (21:00)
== END 2019-05-24 17:11 | disposition home or self-care (01) ==
LOC: EC 15:48 → 3SCARD 18:35
PROVIDERS: ADMIT Family Medicine; ATTEND Family Medicine
DX: I20.0 Unstable angina (principal); J45.909 Unspecified asthma, uncomplicated; M19.90 Unspecified osteoarthritis, unspecified site; F32.9 Major depressive disorder, single episode, unspecified; M79.7 Fibromyalgia; E03.9 Hypothyroidism, unspecified; R41.3 Other amnesia; H40.9 Unspecified glaucoma; G89.4 Chronic pain syndrome; M51.36 Other intervertebral disc degeneration, lumbar region; M50.30 Other cervical disc degeneration, unspecified cervical region; M51.34 Other intervertebral disc degeneration, thoracic region; B27.00 Gammaherpesviral mononucleosis without complication; G62.9 Polyneuropathy, unspecified; G43.909 Migraine, unspecified, not intractable, without status migrainosus; R42 Dizziness and giddiness; Z86.19 Personal history of other infectious and parasitic diseases; K57.90 Diverticulosis of intestine, part unspecified, without perforation or abscess without bleeding; K21.9 Gastro-esophageal reflux disease without esophagitis; Z90.49 Acquired absence of other specified parts of digestive tract; Z93.3 Colostomy status; Z90.710 Acquired absence of both cervix and uterus; Z98.49 Cataract extraction status, unspecified eye; Z96.651 Presence of right artificial knee joint; Z96.649 Presence of unspecified artificial hip joint; Z98.1 Arthrodesis status; Z82.69 Family history of other diseases of the musculoskeletal system and connective tissue; Z80.3 Family history of malignant neoplasm of breast; Z82.0 Family history of epilepsy and other diseases of the nervous system; Z79.1 Long term (current) use of non-steroidal anti-inflammatories (NSAID); Z79.890 Hormone replacement therapy; Z79.891 Long term (current) use of opiate analgesic; Z79.899 Other long term (current) drug therapy; Z88.1 Allergy status to other antibiotic agents; Z91.040 Latex allergy status; Z88.5 Allergy status to narcotic agent; Z88.8 Allergy status to other drugs, medicaments and biological substances; Z91.09 Other allergy status, other than to drugs and biological substances
CPT/HCPCS: 96376 ×2; 96366 ×3; 96375 ×3; 93005 ×2; 96365; 99291; 36415; 80061; 80053; 83735; 84484 ×2; 85025; 85610; 85730 ×2; 71046; G0378 ×2; J1644 ×2; J2405; C9113 ×2

== ENCOUNTER → 2019-06-08 | Outpatient (CLI) | payer MEDICARE, OTHER ==
[2019-06-08 16:57] LABS: African American GFR (CKD) >90 (>60 ml/min/1.73 sqM); Blood Urea Nitrogen 11 mg/dL (7-17); Non-African American GFR(CKD) 86 (>60 ml/min/1.73 sqM)
--- NOTE | 2019-06-08 21:12 | CT ---
EXAMINATION TYPE: CT brain wo/w con, CT iac wo con DATE OF EXAM: 06/08/2019 COMPARISON: CT brain March 24, 2019 HISTORY: Right sided hearing loss and tinnitus. CT DLP: 2091.5 (accession [id number]), 142.7 (accession [id number]) mGycm Automated exposure control for dose reduction was used. CONTRAST: CT scan of the head is performed without and with IV Contrast, patient injected with 100ml mL of Isov ue 300. CT IAC without contrast. FINDINGS: Noncontrast images show no acute intracranial hemorrhage or midline shift. The ventricles and sulci are within normal limits in size. Johns-white matter differentiation is maintained. The glob es are intact bilaterally. Surgically treated paranasal sinuses are clear. Postcontrast images show d ominant left vertebral artery. There is patent anterior communicating artery. No suspicious enhancing intraparenchymal masses identified. CT IAC shows nearly completely opacified right-sided mastoid air cells more prominent versus prior. P atchy opacification on the left side is also now present. Middle ear ossicles are symmetric and withi n normal limits. Scutum is preserved bilaterally. External auditory canals are patent bilaterally. Se micircular canals and cochlea are felt within normal limits. Abnormally prominent enhancing right mid brain vessel of uncertain significance. Temporomandibular joints are maintained bilaterally. IMPRESSION: 1. No suspicious enhancing masses. Persistent worsening right-sided mastoiditis and less severe left sided mastoiditis noted.
== END ==
LOC: RADCTMAIN 16:28
PROVIDERS: ATTEND Otolaryngology
DX: H70.92 Unspecified mastoiditis, left ear (principal)
CPT/HCPCS: 82565; 84520; 70470; 70480; 36415; Q9967

== ENCOUNTER → 2019-07-07 | Outpatient (CLI) | payer MEDICARE, OTHER ==
--- NOTE | 2019-07-07 16:32 | MR ---
EXAMINATION TYPE: MR brain and iac wo/w con DATE OF EXAM: 07/07/2019 COMPARISON: Correlation CT 06/08/2019 HISTORY: 64-year-old female Acoustic Neuroma TECHNIQUE: Multiplanar, multisequence images of the brain and brainstem were acquired before and aft er administration of 7 mL IV Gadavist. Diffusion weighted imaging was performed. Additional coned-d own sequences through the internal auditory canals and posterior cranial fossa before and after IV co ntrast administration. FINDINGS: Diffusion weighted images demonstrate no evidence of an acute ischemic lesion in the brain. T2/FLAIR weighted sequences show mild scattered burden of bright white matter change in the subcortic al, deep, and periventricular regions of both cerebral hemispheres, approximately 5 foci of the left and 2 foci in the right. Midline structures demonstrate normal morphology. The craniocervical junction is normal. Brain volume is age appropriate. The ventricles are of normal caliber. There is no evidence of an acute intracranial hemorrhage, infarct, mass, mass-effect or an extra-axia l fluid collection. There is no cerebellopontine angle mass. The internal auditory canals are symmetric and patent. Brainstem and skull base abnormalities are not seen. Post contrast images demonstrate no evidence of pathologic enhancement in the posterior cranial fossa or the internal auditory canals. There is no abnormal enhancement of the labyrinths. There is opacification of the entire right mastoid air cells. Possible some fluid within the right mi ddle ear cavity as well. Small amount of fluid within the inferior left mastoid air cells. Mild mucosal thickening maxillary sinuses and ethmoid air cells. Globes are intact. IMPRESSION: 1. Fluid throughout the right-sided mastoid air cells. Correlate for mastoiditis, possible otomastoid itis. 2. Small amount of trapped fluid in the inferior left mastoid air cells. Otherwise, unremarkable acou stic MRI. 3. Minimal scattered burden of chronic small vessel ischemic disease. No acute intracranial abnormal ity seen. No enhancing intracranial lesions.
== END | disposition home or self-care (01) ==
LOC: RADMRIMAIN 12:34
PROVIDERS: ATTEND Otolaryngology
DX: I67.82 Cerebral ischemia (principal); D33.3 Benign neoplasm of cranial nerves
CPT/HCPCS: 70553; A9585

== ENCOUNTER 2019-09-09 04:21 | Inpatient (IN) | payer MEDICARE, OTHER ==
--- NOTE | 2019-09-09 04:58 | ED ---
General Adult HPI - General Chief complaint: Urogenital Stated complaint: Bladder infection Time Seen by Provider: 09/09/19 04:43 Source: patient Mode of arrival: ambulatory Limitations: no limitations - History of Present Illness Initial comments: This patient is a 64-year-old woman presenting to be evaluated for fever but has been going on intermittently for approximately the past 30 hours or so. The patient also has had a change in her urine output. The patient does have suprapubic catheter and the urine is normal yellow and clear however over the past hours it has become cloudy and there is pinkish tinge. Patient has also noted occasional cough. She did have recent right mastoid surgery. No pain at surgical site. Onset/Timin -: days(s) Consistency: intermittent Improves with: none Worsens with: none Associated Symptoms: fever/chills Treatments Prior to Arrival: none - Related Data Home Medications Medication Instructions Recorded Confirmed Gabapentin 800 mg PO TID 09/04/15 09/09/19 Oxybutynin Chloride [Ditropan] 10 mg PO BID 11/28/15 09/09/19 Carboxymethylcellulose Sodium 1 drop BOTH EYES BID PRN 06/30/16 09/09/19 [Refresh Tears] Ibuprofen [Motrin] 800 mg PO BID 06/30/16 09/09/19 Levothyroxine Sodium [Synthroid] 100 mcg PO DAILY 06/30/16 09/09/19 oxyCODONE-APAP 5-325MG [Percocet 1 tab PO HS 06/30/16 09/09/19 5-325 mg] buPROPion HCL [Wellbutrin XL] 300 mg PO DAILY 02/04/17 09/09/19 Cholecalciferol (Vitamin D3) 2,000 unit PO HS 06/16/18 09/09/19 [Vitamin D3] Docusate [Colace] 100 mg PO BID 06/16/18 09/09/19 Multivitamins, Thera [Multivitamin 1 tab PO DAILY 01/23/19 09/09/19 (formulary)] Vitamin B Complex 1 cap PO DAILY 01/23/19 09/09/19 Fluorometholone 0.1% Ophth Kathy 1 drops BOTH EYES QID PRN 05/23/19 09/09/19 [Fml] Sulfamethox-Tmp 800-160Mg [Bactrim 1 tab PO DAILY PRN 05/23/19 09/09/19 DS 800-160 mg] Bacillus Coagulans/Inulin 2 cap PO DAILY 09/09/19 09/09/19 [Probiotic with Prebiotic Cap] Bimatoprost [Lumigan .01% Ophth 1 drop BOTH EYES HS 09/09/19 09/09/19 Soln] Sennosides [Ex-Lax Maximum 75 mg PO DAILY 09/09/19 09/09/19 Strength] Previous Rx's Medication Instructions Recorded Omeprazole [PriLOSEC] 20 mg PO AC-BID 15 Days capsule. 02/13/15 Azithromycin [Zithromax] 500 mg PO DAILY #5 tab 09/14/19 Cefuroxime Axetil [Ceftin] 500 mg PO BID #10 tab 09/14/19 Ciprofloxacin-Dexameth [Ciprodex 4 drops RIGHT EAR BID #10 ml 09/14/19 Otic Susp] Nystatin 100,000 Unit/ml Susp 500,000 unit PO QID PRN #200 ml 09/14/19 [Mycostatin Oral Susp] Allergies Allergy/AdvReac Type Severity Reaction Status Date / Time adhesive tape Allergy Rash/Hives Verified 09/09/19 11:40 colesevelam [From WelChol] Allergy Rash/Hives Verified 09/09/19 11:40 colesevelam HCl Allergy Rash/Hives Verified 09/09/19 11:40 [From WelChol] lamivudine Allergy Rash/Hives Verified 09/09/19 11:40 latex Allergy Dyspnea Verified 09/09/19 11:40 levofloxacin [From Levaquin] Allergy Rash/Hives/ Verified 09/09/19 11:40 Fever prochlorperazine edisylate Allergy Anaphylaxis Verified 09/09/19 11:40 [From Compazine] prochlorperazine maleate Allergy Anaphylaxis Verified 09/09/19 11:40 [From Compazine] vancomycin Allergy Rash/Hives/ Verified 09/09/19 11:40 Fever zidovudine Allergy Rash/Hives Verified 09/09/19 11:40 nitrofurantoin AdvReac Nausea & Verified 09/09/19 11:40 [From Macrobid] Vomiting/Dizziness nitroglycerin AdvReac cervical Verified 09/09/19 11:40 fusion spasms tramadol HCl [From Ultram] AdvReac WEAKNESS, Verified 09/09/19 11:40 DIZZYNESS zolpidem [From Anthony] AdvReac SLEEP Verified 09/09/19 11:40 WALKING COMBID Allergy Rash/Hives Uncoded 09/09/19 04:35 Review of Systems ROS Statement: Those systems with pertinent positive or pertinent negative responses have been documented in the HPI. ROS Other: All systems not noted in ROS Statement are negative. Constitutional: Reports: fever. Denies: weakness ENT: Denies: ear pain, congestion Respiratory: Reports: as per HPI, cough. Denies: dyspnea, wheezes Cardiovascular: Denies: chest pain, palpitations Gastrointestinal: Denies: abdominal pain, vomiting, diarrhea Genitourinary: Reports: as per HPI, hematuria. Denies: dysuria, frequency, discharge Musculoskeletal: Denies: back pain Skin: Denies: rash Neurological: Reports: confusion. Denies: headache, weakness, numbness Past Medical History Past Medical History: Chest Pain / Angina, Eye Disorder, Fibromyalgia, GERD/Reflux, Memory Impairment, Osteoarthritis (OA), Pneumonia, Thyroid Disorder Additional Past Medical History / Comment(s): . 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 MINOR, OCC Short term memory loss. DDD Cervical, Thoracic, Lumbar levels. Chronic Pain syndrome in Back. Proctosigmoiditis w/ Colostomy. Diverticulosis. Neuropathy kalyani legs/feet. Migraines. Veritgo. Glaucoma kalyani. KEISHA-BARRE, septic shock, History of Any Multi-Drug Resistant Organisms: C-DIFF Date of last positivie culture/infection: 2010 MDRO Source:: stool Past Surgical History: Adenoidectomy, Back Surgery, Bladder Surgery, Bowel Resection, Breast Surgery, Cholecystectomy, Heart Catheterization, Hysterectomy, Joint Replacement, Tonsillectomy Additional Past Surgical History / Comment(s): 12/06/13 Cardiac cath-normal. cervical Fusion, Back surgury-rods/screws/cage, partial bowel resection with colostomy, total RIGHT KNEE REPLACEMENT, L knee arthroscopy, bladder suspension, cataracts breast augmentation. hip replacedment knee replacement Past Anesthesia/Blood Transfusion Reactions: Family History of Problems w/ Anesthesia, Postoperative Nausea & Vomiting (PONV) Additional Past Anesthesia/Blood Transfusion Reaction / Comment(s): FAMILY HAS PONV. Past Psychological History: Depression Smoking Status: Never smoker Past Alcohol Use History: None Reported Past Drug Use History: None Reported - Past Family History Father Family Medical History: Cancer, Musculoskeletal Disorder, Neurologic Disorder Additional Family Medical History / Comment(s): Father at 77 yrs. He had parkinson's dx. Mother Family Medical History: Cancer Additional Family Medical History / Comment(s): Mother had breast cancer. She is alive and 82 yrs old. General Exam Limitations: no limitations General appearance: alert, in no apparent distress Head exam: Present: atraumatic, normocephalic Eye exam: Present: normal appearance. Absent: scleral icterus, conjunctival injection Respiratory exam: Present: normal lung sounds bilaterally. Absent: respiratory distress, wheezes, rales, rhonchi, stridor Cardiovascular Exam: Present: regular rate, normal rhythm, normal heart sounds. Absent: systolic murmur, diastolic murmur, rubs, gallop GI/Abdominal exam: Present: soft. Absent: distended, tenderness, guarding, rebound, rigid, mass Extremities exam: Present: normal inspection, normal capillary refill. Absent: pedal edema, calf tenderness Back exam: Present: normal inspection. Absent: CVA tenderness (R), CVA tenderness (L) Neurological exam: Present: alert Skin exam: Present: warm, dry, intact, normal color. Absent: rash Course Vital Signs 09/09/19 09/09/19 09/09/19 04:28 06:33 07:00 Temperature 98.7 F 98.0 F Pulse Rate 80 80 Pulse Rate [ 79 Right] Respiratory 18 18 16 Rate Blood Pressure 107/7 124/58 Blood Pressure 128/71 [Right Arm] O2 Sat by Pulse 97 97 95 Oximetry Medical Decision Making - Lab Data Result diagrams: 09/12/19 08:42 09/12/19 08:42 Lab Results 09/09/19 09/09/19 09/09/19 Range/Units 05:05 05:05 05:20 WBC 5.0 (3.8-10.6) k/uL RBC 3.69 L (3.80-5.40) m/uL Hgb 10.9 L (11.4-16.0) gm/dL Hct 33.1 L (34.0-46.0) % MCV 89.8 (80.0-100.0) fL MCH 29.6 (25.0-35.0) pg MCHC 33.0 (31.0-37.0) g/dL RDW 14.1 (11.5-15.5) % Plt Count 213 (150-450) k/uL Sodium (137-145) mmol/L Potassium (3.5-5.1) mmol/L Chloride (98-107) mmol/L Carbon Dioxide (22-30) mmol/L Anion Gap mmol/L BUN (7-17) mg/dL Creatinine (0.52-1.04) mg/dL Est GFR (CKD-EPI)AfAm (>60 ml/min/1.73 sqM) Est GFR (CKD-EPI)NonAf (>60 ml/min/1.73 sqM) Glucose (74-99) mg/dL Plasma Lactic Acid Matheus (0.7-2.0) mmol/L Calcium (8.4-10.2) mg/dL Urine Color Light Red Urine Appearance Cloudy H (Clear) Urine pH 6.5 (5.0-8.0) Ur Specific [place] 1.013 (1.001-1.035) Urine Protein 2+ H (Negative) Urine Glucose (UA) Negative (Negative) Urine Ketones Negative (Negative) Urine Blood Large H (Negative) Urine Nitrite Negative (Negative) Urine Bilirubin Negative (Negative) Urine Urobilinogen <2.0 (<2.0) mg/dL Ur Leukocyte Esterase Small H (Negative) Urine RBC >182 H (0-5) /hpf Urine WBC 20 H (0-5) /hpf Urine Bacteria Occasional H (None) /hpf Hyaline Casts 3 H (0-2) /lpf Urine Mucus Rare H (None) /hpf Influenza Type A RNA Not Detected (Not Detectd) Influenza Type B (PCR) Not Detected (Not Detectd) 09/09/19 09/09/19 Range/Units 05:20 05:20 WBC (3.8-10.6) k/uL RBC (3.80-5.40) m/uL Hgb (11.4-16.0) gm/dL Hct (34.0-46.0) % MCV (80.0-100.0) fL MCH (25.0-35.0) pg MCHC (31.0-37.0) g/dL RDW (11.5-15.5) % Plt Count (150-450) k/uL Sodium 133 L (137-145) mmol/L Potassium 4.0 (3.5-5.1) mmol/L Chloride 100 (98-107) mmol/L Carbon Dioxide 21 L (22-30) mmol/L Anion Gap 12 mmol/L BUN 21 H (7-17) mg/dL Creatinine 1.51 H (0.52-1.04) mg/dL Est GFR (CKD-EPI)AfAm 41 (>60 ml/min/1.73 sqM) Est GFR (CKD-EPI)NonAf 36 (>60 ml/min/1.73 sqM) Glucose 77 (74-99) mg/dL Plasma Lactic Acid Matheus 0.7 (0.7-2.0) mmol/L Calcium 8.8 (8.4-10.2) mg/dL Urine Color Urine Appearance (Clear) Urine pH (5.0-8.0) Ur Specific [place] (1.001-1.035) Urine Protein (Negative) Urine Glucose (UA) (Negative) Urine Ketones (Negative) Urine Blood (Negative) Urine Nitrite (Negative) Urine Bilirubin (Negative) Urine Urobilinogen (<2.0) mg/dL Ur Leukocyte Esterase (Negative) Urine RBC (0-5) /hpf Urine WBC (0-5) /hpf Urine Bacteria (None) /hpf Hyaline Casts (0-2) /lpf Urine Mucus (None) /hpf Influenza Type A RNA (Not Detectd) Influenza Type B (PCR) (Not Detectd) Disposition Clinical Impression: Pneumonia, Altered mental status, Acute kidney injury Disposition: ADMITTED IP TO THIS HOSP Condition: Good
--- NOTE | 2019-09-09 05:34 | XR ---
EXAMINATION TYPE: XR chest 2V DATE OF EXAM: 09/09/2019 COMPARISON: 05/23/2019 HISTORY: Chest pain TECHNIQUE: FINDINGS: There is a 5 cm patch of airspace consolidation in the superior segment right lower lobe. T he other lung morrow are clear. There is no pleural effusion. There is no heart failure. There are no hilar masses. Bony thorax is intact. IMPRESSION: There is new right lower lobe pneumonia compared to last exam.
[2019-09-09 05:48] LABS: Appearance,Urine Cloudy (Clear); Bacteria,Urine Occasional /hpf; Bilirubin,Urine Negative (Negative); Blood,Urine Large (Negative); Color,Urine Light Red; Glucose,Urine (UA) Negative (Negative); Hyaline Casts,Urine 3 /lpf (0-2); Ketones,Urine Negative (Negative); Leukocyte Esterase,Urine Small (Negative); Mucus,Urine Rare /hpf; Nitrite,Urine Negative (Negative); PH, Urine 6.5 (5.0-8.0); Protein,Urine 2+ (Negative); RBC,Urine >182 /hpf (0-5); Specific Gravity,Urine 1.013 (1.001-1.035); Urobilinogen,Urine <2.0 mg/dL (<2.0); WBC,Urine 20 /hpf (0-5)
[2019-09-09] MEDS ORDERED: PNEUMONIA PROTOCOL UTILIZED 1 EACH MISC PO PRN (06:12)
[2019-09-09] MEDS ORDERED: ALBUTEROL NEBULIZED 2.5 MG/3 ML INHALATION PRN (06:12)
[2019-09-09] MEDS ORDERED: NYSTATIN 100,000 UNIT/ML SUSP 500,000 UNIT/5 ML CUP PO PRN (06:15)
[2019-09-09] MEDS ORDERED: HYOSCYAMINE SULFATE 0.125 MG TAB PO PRN (06:15)
[2019-09-09] MEDS ORDERED: SULFAMETHOX-TMP 800-160MG 1 EACH TAB PO PRN (06:15)
[2019-09-09] MEDS ORDERED: ARTIFICIAL TEARS-HYPROMELLOSE DROPS 15 ML BTL BOTH EYES PRN (06:15)
[2019-09-09] MEDS ORDERED: AZITHROMYCIN 500 MG in SODIUM CHLORIDE 0.9% 250 ML IVPB ONE (06:30)
[2019-09-09] MEDS: SODIUM CHLORIDE 0.9% 1,000 ML IV SCH (06:31)
[2019-09-09 07:15] LABS: HCT 33.1 % (34.0-46.0); HGB 10.9 gm/dL (11.4-16.0); MCH 29.6 pg (25.0-35.0); MCV 89.8 fL (80.0-100.0); Mean Platelet Volume 8.7; Platelet Count 213 k/uL (150-450); RBC 3.69 m/uL (3.80-5.40); RDW 14.1 % (11.5-15.5)
[2019-09-09 07:20] LABS: Calcium 8.8 mg/dL (8.4-10.2)
[2019-09-09] MEDS: CHOLECALCIFEROL 1,000 UNIT TAB PO SCH (09:47)
[2019-09-09] MEDS: IBUPROFEN 800 MG TAB PO SCH ×4 (09:48→22:15)
[2019-09-09] MEDS: LEVOTHYROXINE 100 MCG TAB PO SCH (09:48)
[2019-09-09] MEDS: OXYBUTYNIN CHLORIDE 5 MG TAB PO SCH ×2 (09:48→20:14)
[2019-09-09] MEDS: PANTOPRAZOLE 40 MG TABLET PO SCH ×2 (09:48→17:21)
[2019-09-09] MEDS: MULTIVITAMINS, THERA 1 EACH TAB PO SCH (09:48)
[2019-09-09] MEDS: SENNOSIDES 8.6 MG TAB PO SCH (09:48)
[2019-09-09] MEDS: GABAPENTIN 400 MG CAP PO SCH ×3 (09:49→22:15)
[2019-09-09] MEDS: DOCUSATE 100 MG CAP PO SCH ×2 (09:49→20:15)
[2019-09-09] MEDS: IPRATROPIUM-ALBUTEROL 3 ML NEB INHALATION SCH ×4 (10:00→21:04)
[2019-09-09] MEDS: buPROPion XL 300 MG TAB.ER.24H PO SCH (10:28)
[2019-09-09] MEDS: FLUOROMETHOLONE 0.1% OPHTH DROPS 5 ML BTL BOTH EYES SCH ×4 (10:41→20:15)
[2019-09-09 16:35] LABS: Albumin 3.6 g/dL (3.5-5.0); Calcium 8.6 mg/dL (8.4-10.2); Potassium 3.9 mmol/L (3.5-5.1); Total Bilirubin 0.1 mg/dL (0.2-1.3); Total Protein 6.3 g/dL (6.3-8.2)
--- NOTE | 2019-09-09 17:19 | CT ---
EXAMINATION TYPE: CT brain wo con DATE OF EXAM: 09/09/2019 COMPARISON: 06/08/2019 HISTORY: recurrent falls CT DLP: 897.7 mGycm Automated exposure control for dose reduction was used. Exam performed without contrast. Ventricles have normal size. There is no mass effect nor midline shift. There is no sign of intracran ial hemorrhage. The calvarium is intact. There is no evidence of cortical infarct. IMPRESSION: Negative head CT scan. No change. Chronic right side mastoiditis noted.
[2019-09-09] MEDS: PIPERACILLIN-TAZOBACTAM 3.375 GM in SODIUM CHLORIDE 0.9% 100 ML IVPB SCH ×2 (17:21→23:49)
--- NOTE | 2019-09-09 19:18 | HP ---
HISTORY AND PHYSICAL I am covering for Dr. Pressley. DATE OF SERVICE: 09/09/2019 CHIEF COMPLAINT: Fever and change in mental status. HISTORY OF PRESENT ILLNESS: This 64-year-old woman with a past medical history of multiple medical problems including fibromyalgia, GERD, memory impairment, history of pneumonia, history of DJD, C diff history, being followed by Dr. Pressley in the outpatient setting, recently had a surgery on the right from [facility]. The patient subsequently had a fever the next day. The patient was getting on and fever with some confusion and the patient was taken to [facility] and admitted for further evaluation and treatment. The patient is suspect of right middle lobe pneumonia. The patient also has suprapubic catheter and the patient usually gets UTI according to the family. This morning the patient was rather drowsy, but sensorium is significantly improved, but again most of the history taken from the review of the chart, discussion with staff and discussion with daughter at the bedside. There is no history any headache, loss of consciousness, seizures. PAST MEDICAL HISTORY: History of fibromyalgia, GERD, DJD, history of pneumonia, history of septic shock, history of right Suleiman Bar syndrome, history of C difficile colitis and history of bowel resection. MEDICATIONS: Prior to admission include home medications are: 1. Percocet 1 tablet q.h.s. 2. Wellbutrin XL 300 mg p.o. daily. 3. Vitamin B complex 1 p.o. daily. 4. Bactrim DS 1 p.o. daily p.r.n. 5. Senna 875 mg p.o. daily. 6. Ditropan 10 mg p.o. b.i.d. 7. Prilosec 20 mg p.o. b.i.d. 8. Multivitamins one p.o. daily. 9. Synthroid 100 mcg. 10.Motrin 800 mg p.o. b.i.d. 11.Gabapentin 81 mg p.o. t.i.d. 12.Ophthalmic solution 1 drop both eyes q.i.d. p.r.n. 13.Colace 100 mg p.o. b.i.d. 14.Vitamin D3 2000 q.h.s. 15.Refresh 1 drop both eyes b.i.d. p.r.n. 16.Lumigan 1 drop both eyes q.h.s. 17.Basalis coagulase indolent 2 capsules p.o. daily. ALLERGIES: ADHESIVE TAPE, VELCRO, LAMIVUDINE, LATEX, LEVAQUIN, CHLORPROMAZINE, VANCOMYCIN, MACROBID, NITROGLYCERIN, ULTRAM, AMBIEN FAMILY HISTORY: History of breast cancer in mother. SOCIAL HISTORY: No history of smoking. No history of alcohol. REVIEW OF SYSTEMS: ENT mentioned earlier. CARDIOVASCULAR: No angina or palpitations. RESPIRATION as mentioned earlier. GI: As mentioned earlier. as mentioned earlier. NERVOUS SYSTEM: As mentioned earlier. ALLERGY/IMMUNOLOGY: No asthma or hayfever. MUSCULOSKELETAL as mentioned earlier. HEMATOLOGY/ONCOLOGY: No history of anemia. ENDOCRINE: Hypothyroidism. CONSTITUTIONAL: As mentioned earlier. DERMATOLOGY: Negative. RHEUMATOLOGY: Negative. PSYCHIATRIC: As mentioned earlier. PHYSICAL EXAMINATION: Alert and oriented x2. Pulse 78. Blood pressure 128/70, respirations 16, temperature 98 degrees, pulse ox 94% on room air. HEENT: Conjunctivae normal. NECK: No JVD. CARDIOVASCULAR: S1, S2 muffled. RESPIRATIONS: Breath sounds diminished in the bases. A few scattered rhonchi and crackles. ABDOMEN: Soft, nontender. No mass palpable. Suprapubic catheter present. LEGS no edema. No swelling. NERVOUS SYSTEM: Higher functions as mentioned. Moves all four limbs. No neck stiffness. No focal deficits. LYMPHATICS: No lymph nodes palpable in the neck, axillae or groin. SKIN: No ulcer, no rashes and no bleeding. JOINTS no active deforming arthropathy. LABS: WBC 5, hemoglobin 10.9, sodium 133. UA noted. ASSESSMENT: 1. Possible acute urinary tract infection, acute right lower lobe pneumonia with possible sepsis. 2. History of recent mastoid surgery. 3. Anemia, normocytic anemia of chronic disease. 4. Hyponatremia. 5. Increased creatinine with mild acute renal failure possibly prerenal. 6. Change in mental status, metabolic encephalopathy, acute, possibly secondary to sepsis. 7. History of fibromyalgia. 8. Gastroesophageal reflux disease. 9. Degenerative joint disease. 10.History of pneumonia. 11.History of degenerative joint disease. 12.History of migraines. 13.History of glaucoma. 14.History of Suleiman Torres syndrome. 15.History of septic shock. 16.History of C difficile colitis. 17.History of back surgery. 18.History of adenoidectomy. 19.History of cholecystectomy. 20.History of suprapubic with catheter with possible bladder atonia. 21.Depression. 22.Obesity with body mass of 32.4. 23.FULL CODE. RECOMMENDATIONS AND DISCUSSION: This 64-year-old woman who presented with multiple complex medical issues, we will monitor the patient closely. Continue the current medications, management and symptomatic treatment. Broad-spectrum IV antibiotics. Otherwise, I would recommend IV Zosyn. Infectious Disease consultation. Continue the rest of medications. Guarded prognosis because of multiple complex medical issues. Obtain cultures. Further recommendations to follow. Resume the home medications. Discussed with the patient's family who understands and agrees. A copy of dictation being forwarded to Dr. Pressley who is the primary care physician. JANET / MATY: [id number] / MTDD
[2019-09-09] MEDS: oxyCODONE-APAP 5-325MG 1 EACH TAB PO SCH (20:13)
[2019-09-09] MEDS: HEPARIN SODIUM,PORCINE 5,000 UNIT/ML 1 ML VIAL SQ SCH (20:15)
[2019-09-09] MEDS: CIPROFLOXACIN-DEXAMETH 0.3-0.1% DROPS 7.5 ML BTL RIGHT EAR SCH (20:15)
[2019-09-09] MEDS: LATANOPROST 0.005% OPHTH DROPS 2.5 ML BTL BOTH EYES SCH (20:16)
[2019-09-09] MEDS ORDERED: NON FORMULARY DRUG (Bimatoprost [Lumigan .01% Ophth Soln] 1 DROP) BOTH EYES SCH (21:00)
[2019-09-10] MEDS: LEVOTHYROXINE 100 MCG TAB PO SCH (05:07)
[2019-09-10] MEDS: SODIUM CHLORIDE 0.9% 1,000 ML IV SCH (05:08)
[2019-09-10 07:35] LABS: Basophils % (A) 0 %; Eosinophils % (A) 1 %; HCT 31.7 % (34.0-46.0); HGB 10.6 gm/dL (11.4-16.0); Lymphocytes # (A) 1.5 k/uL (1.0-4.8); Lymphocytes % (A) 43 %; MCH 30.6 pg (25.0-35.0); MCHC 33.5 g/dL (31.0-37.0); MCV 91.3 fL (80.0-100.0); Mean Platelet Volume 8.1; Monocytes # (A) 0.3 k/uL (0-1.0); Monocytes % (A) 7 %; Neutrophils # (A) 1.6 k/uL (1.3-7.7); Neutrophils % (A) 46 %; Platelet Count 194 k/uL (150-450); RBC 3.47 m/uL (3.80-5.40); RDW 14.4 % (11.5-15.5); WBC 3.6 k/uL (3.8-10.6)
[2019-09-10 07:49] LABS: Calcium 8.5 mg/dL (8.4-10.2); Potassium 4.3 mmol/L (3.5-5.1)
[2019-09-10] MEDS: IPRATROPIUM-ALBUTEROL 3 ML NEB INHALATION SCH ×4 (08:05→19:46)
[2019-09-10] MEDS: OXYBUTYNIN CHLORIDE 5 MG TAB PO SCH ×2 (08:46→20:39)
[2019-09-10] MEDS: LACTOBACILLUS ACIDOPH & BULGAR 1 EACH PACKET PO SCH (08:46)
[2019-09-10] MEDS: CHOLECALCIFEROL 1,000 UNIT TAB PO SCH (08:46)
[2019-09-10] MEDS: HEPARIN SODIUM,PORCINE 5,000 UNIT/ML 1 ML VIAL SQ SCH ×2 (08:47→20:39)
[2019-09-10] MEDS: MULTIVITAMINS, THERA 1 EACH TAB PO SCH (08:47)
[2019-09-10] MEDS: IBUPROFEN 800 MG TAB PO SCH ×3 (08:47→20:40)
[2019-09-10] MEDS: DOCUSATE 100 MG CAP PO SCH ×2 (08:47→20:40)
[2019-09-10] MEDS: AZITHROMYCIN 500 MG TAB PO SCH (08:47)
[2019-09-10] MEDS: PIPERACILLIN-TAZOBACTAM 3.375 GM in SODIUM CHLORIDE 0.9% 100 ML IVPB SCH ×3 (08:48→23:44)
[2019-09-10] MEDS: PANTOPRAZOLE 40 MG TABLET PO SCH ×2 (08:48→16:16)
[2019-09-10] MEDS: SENNOSIDES 8.6 MG TAB PO SCH (08:48)
[2019-09-10] MEDS: buPROPion XL 300 MG TAB.ER.24H PO SCH (08:49)
[2019-09-10] MEDS: FLUOROMETHOLONE 0.1% OPHTH DROPS 5 ML BTL BOTH EYES SCH ×4 (08:49→20:38)
[2019-09-10] MEDS: CIPROFLOXACIN-DEXAMETH 0.3-0.1% DROPS 7.5 ML BTL RIGHT EAR SCH ×2 (08:50→20:38)
[2019-09-10] MEDS: GABAPENTIN 400 MG CAP PO SCH ×3 (08:50→20:40)
[2019-09-10] MEDS: NON FORMULARY DRUG (Vitamin B Complex [Vitamin B Complex] 1 CAP) PO SCH (08:58)
[2019-09-10] MEDS ORDERED: SENNOSIDES PO SCH (09:00)
--- NOTE | 2019-09-10 09:45 | P.CONS ---
History of Present Illness - Reason for Consult Consult date: 09/09/19 Fever Requesting physician: Ellis Boswell - Chief Complaint Fever x 2 days - History of Present Illness Patient is a 64-year female presenting to the ER at [facility] for fever the pain has been going on for about 2 days patient also noticed to have a change in her urine output in this patient who did have suprapubic catheter has been placed about a year ago for urinary retention patient also noticed to be slightly confused and urine was noted to be cloudy and pinkish staining with the symptom that the patient has been evaluated by the ER physician on arrival to the ER patient was afebrile patient did have a normal white count influenza PCR was negative x2 the patient did have a UA which was cloudy small leukocyte Estrace 20 WBC patient also have a chest x-ray which shows a new right lower lobe pneumonia compared to last exam CT of the brain chronic right-sided mastoiditis the patient has been admitted to the hospital she has been started on Zosyn infectious was consulted for further recommendation about antibiotic therapy patient did have a cough which seem to be mild in intensity patient denies any sputum production denies having any nausea no vomiting no choking on the food and no abdominal pain. Review of Systems Positive point has been mentioned in HPI rest of the systems are negative Past Medical History Past Medical History: Chest Pain / Angina, Eye Disorder, Fibromyalgia, GERD/Reflux, Memory Impairment, Osteoarthritis (OA), Pneumonia, Thyroid Disorder Additional Past Medical History / Comment(s): DDD Cervical, Thoracic, Lumbar levels. Chronic Pain syndrome in Back. Proctosigmoiditis w/ Colostomy. Diverticulosis. Neuropathy kalyani legs/feet. Migraines. Veritgo. Glaucoma kalyani. KEISHA-BARRE SYNDROME, septic shock, Right mastoid infection-surgery through right ear 09/06/19 ([place] [facility] in [place]) History of Any Multi-Drug Resistant Organisms: C-DIFF Year Discovered:: 2010 MDRO Source:: stool Past Surgical History: Adenoidectomy, Back Surgery, Bladder Surgery, Bowel Resection, Breast Surgery, Cholecystectomy, Heart Catheterization, Hysterectomy, Joint Replacement, Tonsillectomy Additional Past Surgical History / Comment(s): 12/06/13 Cardiac cath-normal. cervical Fusion, Back surgury-rods/screws/cage, partial bowel resection with colostomy, total RIGHT KNEE REPLACEMENT, L knee arthroscopy, bladder suspension, cataracts breast augmentation. hip replacedment knee replacement; 09/06/19 RIGHT EAR SURGERY Past Anesthesia/Blood Transfusion Reactions: Family History of Problems w/ Anesthesia, Postoperative Nausea & Vomiting (PONV) Additional Past Anesthesia/Blood Transfusion Reaction / Comm: FAMILY HAS PONV. Past Psychological History: Depression Additional Psychological History / Comment(s): PATIENT RESIDES WITH DAUGHTER Smoking Status: Never smoker Past Alcohol Use History: None Reported Past Drug Use History: None Reported - Past Family History Father Family Medical History: Cancer, Musculoskeletal Disorder, Neurologic Disorder Additional Family Medical History / Comment(s): Father at 77 yrs. He had parkinson's dx. Mother Family Medical History: Cancer Additional Family Medical History / Comment(s): Mother had breast cancer. She is alive and 82 yrs old. Medications and Allergies Home Medications Medication Instructions Recorded Confirmed Type Omeprazole [PriLOSEC] 20 mg PO AC-BID 15 Days capsule. 02/13/15 09/09/19 Rx Gabapentin 800 mg PO TID 09/04/15 09/09/19 History Oxybutynin Chloride [Ditropan] 10 mg PO BID 11/28/15 09/09/19 History Carboxymethylcellulose Sodium 1 drop BOTH EYES BID PRN 06/30/16 09/09/19 History [Refresh Tears] Ibuprofen [Motrin] 800 mg PO BID 06/30/16 09/09/19 History Levothyroxine Sodium [Synthroid] 100 mcg PO DAILY 06/30/16 09/09/19 History oxyCODONE-APAP 5-325MG [Percocet 1 tab PO HS 06/30/16 09/09/19 History 5-325 mg] buPROPion HCL [Wellbutrin XL] 300 mg PO DAILY 02/04/17 09/09/19 History Cholecalciferol (Vitamin D3) 2,000 unit PO HS 06/16/18 09/09/19 History [Vitamin D3] Docusate [Colace] 100 mg PO BID 06/16/18 09/09/19 History Multivitamins, Thera [Multivitamin 1 tab PO DAILY 01/23/19 09/09/19 History (formulary)] Vitamin B Complex 1 cap PO DAILY 01/23/19 09/09/19 History Fluorometholone 0.1% Ophth Kathy 1 drops BOTH EYES QID PRN 05/23/19 09/09/19 History [Fml] Sulfamethox-Tmp 800-160Mg [Bactrim 1 tab PO DAILY PRN 05/23/19 09/09/19 History DS 800-160 mg] Bacillus Coagulans/Inulin 2 cap PO DAILY 09/09/19 09/09/19 History [Probiotic with Prebiotic Cap] Bimatoprost [Lumigan .01% Ophth 1 drop BOTH EYES HS 09/09/19 09/09/19 History Soln] Sennosides [Ex-Lax Maximum 75 mg PO DAILY 09/09/19 09/09/19 History Strength] Allergies Allergy/AdvReac Type Severity Reaction Status Date / Time adhesive tape Allergy Rash/Hives Verified 09/09/19 11:40 colesevelam [From WelChol] Allergy Rash/Hives Verified 09/09/19 11:40 colesevelam HCl Allergy Rash/Hives Verified 09/09/19 11:40 [From WelChol] lamivudine Allergy Rash/Hives Verified 09/09/19 11:40 latex Allergy Dyspnea Verified 09/09/19 11:40 levofloxacin [From Levaquin] Allergy Rash/Hives/ Verified 09/09/19 11:40 Fever prochlorperazine edisylate Allergy Anaphylaxis Verified 09/09/19 11:40 [From Compazine] prochlorperazine maleate Allergy Anaphylaxis Verified 09/09/19 11:40 [From Compazine] vancomycin Allergy Rash/Hives/ Verified 09/09/19 11:40 Fever zidovudine Allergy Rash/Hives Verified 09/09/19 11:40 nitrofurantoin AdvReac Nausea & Verified 09/09/19 11:40 [From Macrobid] Vomiting/Dizziness nitroglycerin AdvReac cervical Verified 09/09/19 11:40 fusion spasms tramadol HCl [From Ultram] AdvReac WEAKNESS, Verified 09/09/19 11:40 DIZZYNESS zolpidem [From Ambien] AdvReac SLEEP Verified 09/09/19 11:40 WALKING COMBID Allergy Rash/Hives Uncoded 09/09/19 04:35 Physical Exam Vitals: Vital Signs Temp Pulse Pulse Resp BP BP Pulse Ox 09/09/19 12:02 78 09/09/19 11:50 78 09/09/19 07:00 98.0 F 79 16 128/71 95 09/09/19 06:33 80 18 124/58 97 09/09/19 04:28 98.7 F 80 18 107/7 97 Intake and Output 09/09/19 09/09/19 09/09/19 06:59 14:59 22:59 Intake Total 540 Output Total 1600 Balance -1060 Intake: Oral 540 Output: Urine 1600 Other: Voiding Method Indwelling Catheter # Voids 600 Weight 83.007 kg 83.007 kg GENERAL DESCRIPTION: Elderly female up in the chair, no distress. No tachypnea or accessory muscle of respiration use. HEENT: Shows Pallor , no scleral icterus. Oral mucous membrane is dry. NECK: Trachea central, no thyromegaly. LUNGS: Unlabored breathing. Decreased breath sound at the base. No wheeze or crackle. HEART: S1, S2, regular rate and rhythm. ABDOMEN: Soft, no tenderness , guarding or rigidity EXTREMITIES: No edema of feet. SKIN: No rash, no masses palpable. NEUROLOGICAL: The patient is awake, alert, oriented x3, mood and affect normal. Results CBC & Chem 7: 09/10/19 07:10 09/10/19 07:10 Labs: Abnormal Lab Results - Last 24 Hours (Table) 09/09/19 09/09/19 09/09/19 Range/Units 05:05 05:20 05:20 RBC 3.69 L (3.80-5.40) m/uL Hgb 10.9 L (11.4-16.0) gm/dL Hct 33.1 L (34.0-46.0) % Sodium 133 L (137-145) mmol/L Carbon Dioxide 21 L (22-30) mmol/L BUN 21 H (7-17) mg/dL Creatinine 1.51 H (0.52-1.04) mg/dL Urine Appearance Cloudy H (Clear) Urine Protein 2+ H (Negative) Urine Blood Large H (Negative) Ur Leukocyte Esterase Small H (Negative) Urine RBC >182 H (0-5) /hpf Urine WBC 20 H (0-5) /hpf Urine Bacteria Occasional H (None) /hpf Hyaline Casts 3 H (0-2) /lpf Urine Mucus Rare H (None) /hpf Microbiology - Last 24 Hours (Table) 09/09/19 05:05 Urine Culture - Preliminary Urine,Voided Assessment and Plan Assessment: 1-patient presented to hospital with fever, confusion and cloudy urine with concern for possible catheter associated urinary tract infection however the urine did not have significant pyuria the patient did have a minimal cough with x-ray suspicious for right lobe pneumonia may be the source of her fever (1) Fever Current Visit: Yes Status: Acute Code(s): R50.9 - FEVER, UNSPECIFIED SNOMED Code(s): 356340262 Plan: 1-change Malin catheter obtain urine culture from new Malin 2-we will try to obtain a sputum for Gram stain and culture 3-Zosyn 3.375 g every 8 hour We will follow on clinical condition and cultures to further adjust medication if needed Thank you for this consultation we will follow the patient along with you Time with Patient: Greater than 30
[2019-09-10] MEDS: guaiFENesin SYRUP 100MG/5ML 200 MG/10 ML CUP PO PRN (13:46)
[2019-09-10] MEDS: LATANOPROST 0.005% OPHTH DROPS 2.5 ML BTL BOTH EYES SCH (20:39)
[2019-09-10] MEDS: oxyCODONE-APAP 5-325MG 1 EACH TAB PO SCH (20:41)
--- NOTE | 2019-09-10 21:53 | PN ---
PROGRESS NOTE I am covering for Dr. Pressley. DATE OF SERVICE: 09/10/2019. This 64-year-old woman was admitted with significant infections such as UTI and pneumonia, is being closely monitored. The patient is on broad-spectrum IV antibiotics. The patient recently had a mastoid surgery by ENT physician elsewhere. Influenza is negative. The patient also has suprapubic catheter. Attempts were made to change it. No chest pain. No palpitations. No fever. PAST MEDICAL HISTORY: Reviewed. REVIEW OF SYSTEMS: Cardiovascular system: No angina or palpitations. RESPIRATORY: As mentioned earlier. GI: As mentioned earlier. : As mentioned earlier. Nervous system: No numbness or weakness. CURRENT MEDICATIONS: Reviewed and include: 1. Ventolin p.r.n. 2. DuoNeb q.i.d. and p.r.n. 3. Zithromax 500 mg. 4. Wellbutrin XL. 5. Cipro eardrops. 6. Colace 100 mg b.i.d. 7. Gabapentin 800 mg t.i.d. 8. Robitussin. 9. Heparin. 11.Motrin. 12.Lactobacillus. 13.Xalatan. 14.Synthroid 100 mcg p.o. daily. 15.Multivitamins daily. 16.Nystatin. 17.Ditropan. 18.Percocet. 19.Protonix. 20.Zosyn 3.375 IV q.8. 21.Senokot. PHYSICAL EXAMINATION: Patient is alert, oriented times three. The pulse is 67, blood pressure 105/59, respiration 14, temperature 98.2, pulse ox 97% on room air. HEENT: Conjunctivae normal. NECK: No JVD. CARDIOVASCULAR: S1, S2 muffled. Respirations: Breath sounds diminished in the bases. A few scattered rhonchi and crackles. Expiratory wheezing also present. ABDOMEN: Soft, nontender. No mass palpable. LEGS are no edema, no swelling. LABS: WBC 3.2, hemoglobin 10.2, sodium 137. Influenza negative. The cultures otherwise final reports are pending. ASSESSMENT: 1. Possible acute urinary tract infection or acute right lower pneumonia with possible sepsis present on admission with fever, acute urinary tract infection related to catheter. 2. History of recent mastoid surgery. 3. Anemia, normocytic anemia of chronic disease. 4. Hyponatremia. 5. Increased creatinine with mild acute renal failure possibly prerenal, acute tubular necrosis. 6. Change in mental status, metabolic encephalopathy, acute, possibly secondary to sepsis. 7. History of fibromyalgia. 8. History of gastroesophageal reflux disease. 9. Degenerative joint disease. 10.History of pneumonia. 11.History of degenerative joint disease. 12.History of migraines. 13.History of glaucoma. 14.History of Suleiman Torres syndrome. 15.History of septic shock. 16.History of C difficile colitis. 17.History of back surgery. 18.History of adenoidectomy. 19.History of cholecystectomy. 20.History of suprapubic catheter with bladder atonia. 21.Depression. 22.Obesity with body mass index of 32.5. 23.FULL CODE. RECOMMENDATIONS AND DISCUSSION: I recommend to continue current medications, management and symptomatic treatment. Continue the broad-spectrum IV antibiotics. Follow the cultures. Continue the bronchodilators. Continue the rest of the medications. DVT prophylaxis. Incentive spirometry. Follow the patient closely with you and Dr. Pressley will follow tomorrow. Further recommendations to follow. MMSALBADORL / IJN: [id number] / SONU
[2019-09-11] MEDS: guaiFENesin SYRUP 100MG/5ML 200 MG/10 ML CUP PO PRN ×2 (03:56→13:52)
[2019-09-11] MEDS: SODIUM CHLORIDE 0.9% 1,000 ML IV SCH (06:12)
[2019-09-11] MEDS: LEVOTHYROXINE 100 MCG TAB PO SCH (06:12)
--- NOTE | 2019-09-11 07:40 | PN ---
PROGRESS NOTE DATE OF SERVICE: 09/10/2019 REASON FOR FOLLOWUP: Pneumonia. INTERVAL HISTORY: The patient is currently afebrile. She is breathing comfortably. She has been complaining of cough which is moderate in intensity, has been bringing up some sputum. No hemoptysis. No chest pain, no abdominal pain, no diarrhea. PHYSICAL EXAMINATION: Blood pressure 116/64 with a pulse of 81, temperature 98.7. She is 93% on room air. General description is an elderly female, lying in bed, in no distress. RESPIRATORY SYSTEM: Unlabored breathing, decreased breath sounds in the base, with no wheeze. HEART: S1, S2. Regular rate and rhythm. ABDOMEN: Soft. No tenderness. LABS: Hemoglobin is 10.6, white count of 3.6, creatinine 0.86. Urine is negative, blood culture so far negative. DIAGNOSTIC IMPRESSION AND PLAN: Patient admitted to the hospital with a fever in this patient who did have evidence of right lower lobe pneumonia. The patient is currently covered with Zosyn. Will try to obtain a sputum to narrow down her antibiotics and monitor clinical course closely. MMODL / IJN: [id number] /
[2019-09-11] MEDS: DOCUSATE 100 MG CAP PO SCH ×2 (08:06→21:08)
[2019-09-11] MEDS: MULTIVITAMINS, THERA 1 EACH TAB PO SCH (08:06)
[2019-09-11] MEDS: LACTOBACILLUS ACIDOPH & BULGAR 1 EACH PACKET PO SCH (08:06)
[2019-09-11] MEDS: AZITHROMYCIN 500 MG TAB PO SCH (08:06)
[2019-09-11] MEDS: HEPARIN SODIUM,PORCINE 5,000 UNIT/ML 1 ML VIAL SQ SCH ×2 (08:06→21:09)
[2019-09-11] MEDS: IBUPROFEN 800 MG TAB PO SCH ×3 (08:06→21:08)
[2019-09-11] MEDS: SENNOSIDES 8.6 MG TAB PO SCH (08:07)
[2019-09-11] MEDS: buPROPion XL 300 MG TAB.ER.24H PO SCH (08:07)
[2019-09-11] MEDS: OXYBUTYNIN CHLORIDE 5 MG TAB PO SCH ×2 (08:07→21:08)
[2019-09-11] MEDS: GABAPENTIN 400 MG CAP PO SCH ×3 (08:07→21:08)
[2019-09-11] MEDS: CHOLECALCIFEROL 1,000 UNIT TAB PO SCH (08:07)
[2019-09-11] MEDS: PANTOPRAZOLE 40 MG TABLET PO SCH ×2 (08:07→15:06)
[2019-09-11] MEDS: PIPERACILLIN-TAZOBACTAM 3.375 GM in SODIUM CHLORIDE 0.9% 100 ML IVPB SCH ×2 (08:08→15:06)
[2019-09-11] MEDS: CIPROFLOXACIN-DEXAMETH 0.3-0.1% DROPS 7.5 ML BTL RIGHT EAR SCH ×2 (08:08→21:14)
[2019-09-11] MEDS: NON FORMULARY DRUG (Vitamin B Complex [Vitamin B Complex] 1 CAP) PO SCH (08:09)
[2019-09-11] MEDS: FLUOROMETHOLONE 0.1% OPHTH DROPS 5 ML BTL BOTH EYES SCH ×4 (08:09→21:17)
--- NOTE | 2019-09-11 08:12 | P.PN ---
Subjective Progress Note Date: 09/11/19 Principal diagnosis: Pneumonia. This is a 64-year-old white female with known history of diabetes and urinary atony who has an underlying history of pneumonia. Worsening cough is otherwise noted. No fever or chills in the last shift. She seems to be tolerating diet. Blood sugars appropriate Objective - Vital Signs Vital signs: Vital Signs Temp 97.7 F 09/11/19 05:13 Pulse 75 09/11/19 05:13 Resp 16 09/11/19 05:13 BP 111/64 09/11/19 05:13 Pulse Ox 98 09/11/19 05:13 Intake & Output 09/10/19 09/11/19 09/11/19 18:59 06:59 18:59 Intake Total 540 Output Total 1000 2200 Balance -460 -2200 Intake: Oral 540 Output: Urine 1000 2200 Other: Voiding Method Indwelling Catheter Indwelling Catheter - Constitutional General appearance: Present: average body habitus - EENT Eyes: Absent: abnormal pupil - Neck Neck: Absent: lymphadenopathy - Respiratory Respiratory: bilateral: rhonchi - Cardiovascular Rhythm: regular Heart sounds: normal: S1, S2 Abnormal Heart Sounds: Absent: S3 Gallop - Gastrointestinal General gastrointestinal: Present: soft. Absent: splenomegaly - Psychiatric Psychiatric: Present: A&O x's 3 - Labs CBC & Chem 7: 09/10/19 07:10 09/10/19 07:10 Labs: Microbiology - Last 24 Hours (Table) 09/09/19 09:49 Blood Culture - Preliminary Blood No Growth after 24 hours 09/09/19 05:05 Urine Culture - Final Urine,Voided 09/09/19 05:13 Blood Culture - Preliminary Blood No Growth after 24 hours Assessment and Plan (1) Atonic urinary bladder Current Visit: Yes Status: Acute Code(s): N31.2 - FLACCID NEUROPATHIC BLADDER, NOT ELSEWHERE CLASSIFIED SNOMED Code(s): 175203899 (2) Fever Current Visit: Yes Status: Acute Code(s): R50.9 - FEVER, UNSPECIFIED SNOMED Code(s): 887144546 (3) Pneumonia Current Visit: Yes Status: Acute Code(s): J18.9 - PNEUMONIA, UNSPECIFIED ORGANISM SNOMED Code(s): 867359655 Plan: Continue current antibiotic treatment. Pulmonary toilet. Check CBC and CMP in a.m. Time with Patient: Greater than 30
[2019-09-11] MEDS: IPRATROPIUM-ALBUTEROL 3 ML NEB INHALATION SCH ×4 (09:26→21:22)
[2019-09-11 09:58] LABS: Basophils % (A) 0 %; Eosinophils # (A) 0.1 k/uL (0-0.7); Eosinophils % (A) 2 %; HCT 36.3 % (34.0-46.0); HGB 11.6 gm/dL (11.4-16.0); Lymphocytes # (A) 1.7 k/uL (1.0-4.8); Lymphocytes % (A) 35 %; MCHC 31.9 g/dL (31.0-37.0); MCV 91.1 fL (80.0-100.0); Mean Platelet Volume 8.2; Monocytes # (A) 0.3 k/uL (0-1.0); Monocytes % (A) 6 %; Neutrophils # (A) 2.6 k/uL (1.3-7.7); Neutrophils % (A) 55 %; Platelet Count 208 k/uL (150-450); RBC 3.98 m/uL (3.80-5.40); RDW 14.3 % (11.5-15.5); WBC 4.7 k/uL (3.8-10.6)
[2019-09-11 10:15] LABS: African American GFR (CKD) >90 (>60 ml/min/1.73 sqM); Anion Gap 10 mmol/L; Blood Urea Nitrogen 7 mg/dL (7-17); Calcium 9.2 mg/dL (8.4-10.2); Carbon Dioxide 21 mmol/L (22-30); Chloride 109 mmol/L (98-107); Glucose 110 mg/dL (74-99); Non-African American GFR(CKD) 79 (>60 ml/min/1.73 sqM); Sodium 140 mmol/L (137-145)
[2019-09-11 10:27] LABS: Potassium 4.8 mmol/L (3.5-5.1)
[2019-09-11] MEDS: oxyCODONE-APAP 5-325MG 1 EACH TAB PO PRN ×2 (15:53→21:09)
[2019-09-11] MEDS: LATANOPROST 0.005% OPHTH DROPS 2.5 ML BTL BOTH EYES SCH (21:13)
[2019-09-12] MEDS: PIPERACILLIN-TAZOBACTAM 3.375 GM in SODIUM CHLORIDE 0.9% 100 ML IVPB SCH ×4 (00:11→23:06)
[2019-09-12] MEDS: guaiFENesin SYRUP 100MG/5ML 200 MG/10 ML CUP PO PRN ×2 (02:16→08:02)
[2019-09-12] MEDS: LEVOTHYROXINE 100 MCG TAB PO SCH (05:59)
[2019-09-12] MEDS: SODIUM CHLORIDE 0.9% 1,000 ML IV SCH (06:00)
[2019-09-12] MEDS: GABAPENTIN 400 MG CAP PO SCH ×3 (08:01→22:43)
[2019-09-12] MEDS: MULTIVITAMINS, THERA 1 EACH TAB PO SCH (08:01)
[2019-09-12] MEDS: PANTOPRAZOLE 40 MG TABLET PO SCH ×2 (08:02→16:25)
[2019-09-12] MEDS: LACTOBACILLUS ACIDOPH & BULGAR 1 EACH PACKET PO SCH (08:02)
[2019-09-12] MEDS: AZITHROMYCIN 500 MG TAB PO SCH (08:02)
[2019-09-12] MEDS: OXYBUTYNIN CHLORIDE 5 MG TAB PO SCH ×2 (08:02→22:46)
[2019-09-12] MEDS: CHOLECALCIFEROL 1,000 UNIT TAB PO SCH (08:02)
[2019-09-12] MEDS: SENNOSIDES 8.6 MG TAB PO SCH (08:02)
[2019-09-12] MEDS: IBUPROFEN 800 MG TAB PO SCH ×3 (08:02→22:44)
[2019-09-12] MEDS: NON FORMULARY DRUG (Vitamin B Complex [Vitamin B Complex] 1 CAP) PO SCH (08:03)
[2019-09-12] MEDS: HEPARIN SODIUM,PORCINE 5,000 UNIT/ML 1 ML VIAL SQ SCH ×2 (08:03→22:47)
[2019-09-12] MEDS: buPROPion XL 300 MG TAB.ER.24H PO SCH (08:03)
[2019-09-12] MEDS: CIPROFLOXACIN-DEXAMETH 0.3-0.1% DROPS 7.5 ML BTL RIGHT EAR SCH ×2 (08:03→22:49)
[2019-09-12] MEDS: DOCUSATE 100 MG CAP PO SCH ×2 (08:03→22:44)
[2019-09-12] MEDS: FLUOROMETHOLONE 0.1% OPHTH DROPS 5 ML BTL BOTH EYES SCH ×5 (08:04→22:55)
[2019-09-12 09:30] LABS: Basophils % (A) 0 %; Eosinophils # (A) 0.2 k/uL (0-0.7); Eosinophils % (A) 3 %; HCT 36.4 % (34.0-46.0); HGB 11.6 gm/dL (11.4-16.0); Lymphocytes # (A) 2.1 k/uL (1.0-4.8); Lymphocytes % (A) 44 %; MCH 28.9 pg (25.0-35.0); MCV 90.3 fL (80.0-100.0); Monocytes # (A) 0.3 k/uL (0-1.0); Monocytes % (A) 5 %; Neutrophils # (A) 2.2 k/uL (1.3-7.7); Neutrophils % (A) 46 %; Platelet Count 244 k/uL (150-450); RBC 4.03 m/uL (3.80-5.40); RDW 14.1 % (11.5-15.5); WBC 4.8 k/uL (3.8-10.6)
[2019-09-12] MEDS: IPRATROPIUM-ALBUTEROL 3 ML NEB INHALATION SCH ×4 (09:30→22:00)
[2019-09-12 09:49] LABS: ALT 39 U/L (4-34); AST 53 U/L (14-36); African American GFR (CKD) >90 (>60 ml/min/1.73 sqM); Albumin 3.9 g/dL (3.5-5.0); Alkaline Phosphatase 122 U/L (38-126); Anion Gap 10 mmol/L; Blood Urea Nitrogen 9 mg/dL (7-17); Calcium 9.3 mg/dL (8.4-10.2); Carbon Dioxide 22 mmol/L (22-30); Chloride 107 mmol/L (98-107); Glucose 106 mg/dL (74-99); Non-African American GFR(CKD) 83 (>60 ml/min/1.73 sqM); Potassium 4.7 mmol/L (3.5-5.1); Sodium 139 mmol/L (137-145); Total Bilirubin 0.4 mg/dL (0.2-1.3); Total Protein 6.8 g/dL (6.3-8.2)
[2019-09-12] MEDS: oxyCODONE-APAP 5-325MG 1 EACH TAB PO PRN (13:39)
[2019-09-12] MEDS: ONDANSETRON 4 MG/2 ML VIAL IVP PRN (22:41)
[2019-09-12] MEDS: LATANOPROST 0.005% OPHTH DROPS 2.5 ML BTL BOTH EYES SCH (22:48)
[2019-09-13] MEDS: oxyCODONE-APAP 5-325MG 1 EACH TAB PO PRN (00:31)
--- NOTE | 2019-09-13 01:08 | PN ---
PROGRESS NOTE DATE OF SERVICE: 09/12/2019 REASON FOR FOLLOWUP: Pneumonia. INTERVAL HISTORY: The patient is currently afebrile. The patient has been breathing comfortably. The patient did have a cough with decreased intensity. No nausea or vomiting. No abdominal pain. No diarrhea. PHYSICAL EXAMINATION: Blood pressure 116/69 with a pulse of 77, temperature 98.5. She is 96% on room air. General description is an elderly female up in the chair in no distress. Respiratory system: Unlabored breathing. Decreased breath sounds in the bases. No wheeze. Heart S1, S2. Regular rate and rhythm. Abdomen soft. No tenderness. LABS: Hemoglobin 11.6, white count 4.8. BUN of 9, creatinine 0.76. Blood culture has been negative. Urine is negative. DIAGNOSTIC IMPRESSION AND PLAN: Patient admitted to the hospital with fever, congested cough with evidence of pneumonia. Patient is currently covered on Zosyn. To continue, to finish therapy with oral antibiotics and monitor clinical course closely. Continue supportive care. MMODL / IJN: [id number] /
[2019-09-13] MEDS: ONDANSETRON 4 MG/2 ML VIAL IVP PRN ×3 (05:17→20:31)
[2019-09-13] MEDS: LEVOTHYROXINE 100 MCG TAB PO SCH (05:21)
[2019-09-13] MEDS: SODIUM CHLORIDE 0.9% 1,000 ML IV SCH (05:23)
--- NOTE | 2019-09-13 07:55 | P.PN ---
Subjective Principal diagnosis: Pneumonia. This is a 64-year-old white female with known history of diabetes and urinary atony who has an underlying history of pneumonia. Worsening cough is otherwise noted. No fever or chills in the last shift. She seems to be tolerating diet. Blood sugars appropriate Objective - Vital Signs Vital signs: Vital Signs Temp 98.1 F 09/13/19 05:00 Pulse 72 09/13/19 05:00 Resp 18 09/13/19 05:00 BP 124/65 09/13/19 05:00 Pulse Ox 97 09/13/19 05:00 Intake & Output 09/12/19 09/13/19 09/13/19 18:59 06:59 18:59 Intake Total 1250 1000 Output Total 1800 1450 Balance -550 -450 Intake: Oral 1250 1000 Output: Urine 1800 1450 Other: Voiding Method Indwelling Catheter Indwelling Catheter # Voids 0 # Bowel Movements 0 - Constitutional General appearance: Present: average body habitus - EENT Eyes: Absent: abnormal pupil - Neck Neck: Absent: lymphadenopathy - Respiratory Respiratory: bilateral: diminished - Cardiovascular Rhythm: regular Heart sounds: normal: S1, S2 Abnormal Heart Sounds: Absent: S3 Gallop - Gastrointestinal General gastrointestinal: Present: soft. Absent: tenderness - Neurologic Neurologic: Present: CNII-XII intact - Labs CBC & Chem 7: 09/12/19 08:42 09/12/19 08:42 Labs: Abnormal Lab Results - Last 24 Hours (Table) 09/12/19 Range/Units 08:42 Glucose 106 H (74-99) mg/dL AST 53 H (14-36) U/L ALT 39 H (4-34) U/L Microbiology - Last 24 Hours (Table) 09/09/19 09:49 Blood Culture - Preliminary Blood No Growth after 72 hours 09/09/19 05:13 Blood Culture - Preliminary Blood No Growth after 72 hours Assessment and Plan (1) Atonic urinary bladder Current Visit: Yes Status: Acute Code(s): N31.2 - FLACCID NEUROPATHIC BLADDER, NOT ELSEWHERE CLASSIFIED SNOMED Code(s): 083269970 (2) Fever Current Visit: Yes Status: Acute Code(s): R50.9 - FEVER, UNSPECIFIED SNOMED Code(s): 333266446 (3) Pneumonia Current Visit: Yes Status: Acute Code(s): J18.9 - PNEUMONIA, UNSPECIFIED ORGANISM SNOMED Code(s): 858527963 Plan: Continue current antibiotic treatment. Pulmonary toilet. Check CBC and CMP in a.m. Increase in relation. Anticipate discharge in a.m.
--- NOTE | 2019-09-13 07:56 | P.PN ---
Subjective Principal diagnosis: Pneumonia. This is a 64-year-old white female with known history of diabetes and urinary atony who has an underlying history of pneumonia. Worsening cough is otherwise noted. No fever or chills in the last shift. She seems to be tolerating diet. Blood sugars appropriate Objective - Vital Signs Vital signs: Vital Signs Temp 98.1 F 09/13/19 05:00 Pulse 72 09/13/19 05:00 Resp 18 09/13/19 05:00 BP 124/65 09/13/19 05:00 Pulse Ox 97 09/13/19 05:00 Intake & Output 09/12/19 09/13/19 09/13/19 18:59 06:59 18:59 Intake Total 1250 1000 Output Total 1800 1450 Balance -550 -450 Intake: Oral 1250 1000 Output: Urine 1800 1450 Other: Voiding Method Indwelling Catheter Indwelling Catheter # Voids 0 # Bowel Movements 0 - Constitutional General appearance: Present: average body habitus - EENT Eyes: Absent: abnormal pupil - Neck Neck: Absent: lymphadenopathy - Respiratory Respiratory: bilateral: CTA - Cardiovascular Rhythm: regular Heart sounds: normal: S1, S2 Abnormal Heart Sounds: Absent: S3 Gallop - Gastrointestinal General gastrointestinal: Present: soft, tenderness - Labs CBC & Chem 7: 09/12/19 08:42 09/12/19 08:42 Labs: Abnormal Lab Results - Last 24 Hours (Table) 09/12/19 Range/Units 08:42 Glucose 106 H (74-99) mg/dL AST 53 H (14-36) U/L ALT 39 H (4-34) U/L Microbiology - Last 24 Hours (Table) 09/09/19 09:49 Blood Culture - Preliminary Blood No Growth after 72 hours 09/09/19 05:13 Blood Culture - Preliminary Blood No Growth after 72 hours Assessment and Plan (1) Atonic urinary bladder Current Visit: Yes Status: Acute Code(s): N31.2 - FLACCID NEUROPATHIC BLADDER, NOT ELSEWHERE CLASSIFIED SNOMED Code(s): 473982278 (2) Fever Current Visit: Yes Status: Acute Code(s): R50.9 - FEVER, UNSPECIFIED SNOMED Code(s): 904256471 (3) Pneumonia Current Visit: Yes Status: Acute Code(s): J18.9 - PNEUMONIA, UNSPECIFIED ORGANISM SNOMED Code(s): 001928259 Plan: Continue current antibiotic treatment. Pulmonary toilet. Check CBC and CMP in a.m. Increase in relation. Anticipate discharge in a.m. Time with Patient: Less than 30
[2019-09-13] MEDS: PIPERACILLIN-TAZOBACTAM 3.375 GM in SODIUM CHLORIDE 0.9% 100 ML IVPB SCH ×2 (08:10→15:08)
[2019-09-13] MEDS: buPROPion XL 300 MG TAB.ER.24H PO SCH (08:12)
[2019-09-13] MEDS: IBUPROFEN 800 MG TAB PO SCH ×3 (08:12→21:10)
[2019-09-13] MEDS: HEPARIN SODIUM,PORCINE 5,000 UNIT/ML 1 ML VIAL SQ SCH ×2 (08:12→21:11)
[2019-09-13] MEDS: AZITHROMYCIN 500 MG TAB PO SCH (08:12)
[2019-09-13] MEDS: SENNOSIDES 8.6 MG TAB PO SCH (08:12)
[2019-09-13] MEDS: DOCUSATE 100 MG CAP PO SCH ×2 (08:12→21:10)
[2019-09-13] MEDS: PANTOPRAZOLE 40 MG TABLET PO SCH ×2 (08:12→15:08)
[2019-09-13] MEDS: LACTOBACILLUS ACIDOPH & BULGAR 1 EACH PACKET PO SCH (08:12)
[2019-09-13] MEDS: CHOLECALCIFEROL 1,000 UNIT TAB PO SCH (08:13)
[2019-09-13] MEDS: GABAPENTIN 400 MG CAP PO SCH ×3 (08:13→21:10)
[2019-09-13] MEDS: OXYBUTYNIN CHLORIDE 5 MG TAB PO SCH ×2 (08:13→21:11)
[2019-09-13] MEDS: NON FORMULARY DRUG (Vitamin B Complex [Vitamin B Complex] 1 CAP) PO SCH (08:13)
[2019-09-13] MEDS: MULTIVITAMINS, THERA 1 EACH TAB PO SCH (08:13)
[2019-09-13] MEDS: FLUOROMETHOLONE 0.1% OPHTH DROPS 5 ML BTL BOTH EYES SCH ×4 (08:14→21:12)
[2019-09-13] MEDS: CIPROFLOXACIN-DEXAMETH 0.3-0.1% DROPS 7.5 ML BTL RIGHT EAR SCH ×2 (08:19→21:12)
[2019-09-13] MEDS: IPRATROPIUM-ALBUTEROL 3 ML NEB INHALATION SCH ×4 (08:55→19:09)
[2019-09-13] MEDS: LATANOPROST 0.005% OPHTH DROPS 2.5 ML BTL BOTH EYES SCH (21:12)
--- NOTE | 2019-09-13 22:57 | PN ---
PROGRESS NOTE DATE OF SERVICE: 09/13/2019 REASON FOR FOLLOWUP: Pneumonia. INTERVAL HISTORY: The patient is currently afebrile. The patient has been breathing comfortably. The patient's cough has decreased in intensity. Denies having any chest pain. No nausea, no vomiting. No abdominal pain or diarrhea. PHYSICAL EXAMINATION: Blood pressure is 97/56, pulse of 97, temperature 98.1. She is 94% on room air. General description is an elderly female lying in bed in no distress. Respiratory system: Unlabored breathing. Decreased breath sounds at the bases. No wheeze. Heart S1, S2. Regular rate and rhythm. Abdomen soft, no tenderness. LABS: Blood culture negative. Sputum cultures currently pending. DIAGNOSTIC IMPRESSION AND PLAN: Patient admitted to the hospital with shortness of breath and cough. Diagnosis of pneumonia. Clinical responding to Zosyn that will continue. Waiting for sputum culture to finalize to determine discharge antibiotics. Continue supportive care. MMODL / IJN: [id number] /
[2019-09-14] MEDS: oxyCODONE-APAP 5-325MG 1 EACH TAB PO PRN (00:15)
[2019-09-14] MEDS: PIPERACILLIN-TAZOBACTAM 3.375 GM in SODIUM CHLORIDE 0.9% 100 ML IVPB SCH ×2 (00:20→07:58)
[2019-09-14] MEDS: SODIUM CHLORIDE 0.9% 1,000 ML IV SCH (06:10)
[2019-09-14] MEDS: LEVOTHYROXINE 100 MCG TAB PO SCH (06:10)
[2019-09-14] MEDS: IBUPROFEN 800 MG TAB PO SCH (07:58)
[2019-09-14] MEDS: DOCUSATE 100 MG CAP PO SCH (07:58)
[2019-09-14] MEDS: HEPARIN SODIUM,PORCINE 5,000 UNIT/ML 1 ML VIAL SQ SCH (07:58)
[2019-09-14 07:59] VITALS: BP 113/63; PULSE 75; RESP 16; TEMP 98.1
[2019-09-14] MEDS: MULTIVITAMINS, THERA 1 EACH TAB PO SCH (07:59)
[2019-09-14] MEDS: GABAPENTIN 400 MG CAP PO SCH (07:59)
[2019-09-14] MEDS: SENNOSIDES 8.6 MG TAB PO SCH (07:59)
[2019-09-14] MEDS: AZITHROMYCIN 500 MG TAB PO SCH (07:59)
[2019-09-14] MEDS: buPROPion XL 300 MG TAB.ER.24H PO SCH (07:59)
[2019-09-14] MEDS: PANTOPRAZOLE 40 MG TABLET PO SCH (07:59)
[2019-09-14] MEDS: FLUOROMETHOLONE 0.1% OPHTH DROPS 5 ML BTL BOTH EYES SCH (07:59)
[2019-09-14] MEDS: OXYBUTYNIN CHLORIDE 5 MG TAB PO SCH (07:59)
[2019-09-14] MEDS: CHOLECALCIFEROL 1,000 UNIT TAB PO SCH (07:59)
[2019-09-14] MEDS: NON FORMULARY DRUG (Vitamin B Complex [Vitamin B Complex] 1 CAP) PO SCH (07:59)
[2019-09-14] MEDS: LACTOBACILLUS ACIDOPH & BULGAR 1 EACH PACKET PO SCH (07:59)
[2019-09-14] MEDS: CIPROFLOXACIN-DEXAMETH 0.3-0.1% DROPS 7.5 ML BTL RIGHT EAR SCH (08:00)
[2019-09-14] MEDS: IPRATROPIUM-ALBUTEROL 3 ML NEB INHALATION SCH (08:14)
--- NOTE | 2019-09-14 08:36 | P.DS ---
Providers Date of admission: 09/09/19 06:12 Attending physician: Jaskaran Pressley Consults: 09/09/19 15:24 Consult Physician Routine Consulting Provider: Evelio Hunt Consult Reason/Comments: UTI-supra pubic catheter; PNA Do you want consulting provider notified?: Already Contacted Primary care physician: Jaskaran Pressley - Discharge Diagnosis(es) (1) Atonic urinary bladder Current Visit: Yes Status: Acute (2) Fever Current Visit: Yes Status: Acute (3) Pneumonia Current Visit: Yes Status: Acute Hospital Course: The patient is a 64-year-old white female essentially admitted for pneumonia community acquired pneumonia was treated with appropriate protocol and discharged in stable condition to follow-up with me in 7 days Patient Condition at Discharge: Good Plan - Discharge Summary New Discharge Prescriptions: New RX: Ciprofloxacin-Dexameth [Ciprodex Otic Susp] 4 drops RIGHT EAR BID #10 ml RX: Nystatin 100,000 Unit/ml Susp [Mycostatin Oral Susp] 500,000 unit PO QID PRN #200 ml PRN Reason: THRUSH RX: Azithromycin [Zithromax] 500 mg PO DAILY #5 tab Continue RX: Omeprazole [PriLOSEC] 20 mg PO AC-BID 15 Days capsule. RX: Gabapentin 800 mg PO TID RX: Oxybutynin Chloride [Ditropan] 10 mg PO BID RX: Ibuprofen [Motrin] 800 mg PO BID RX: Levothyroxine Sodium [Synthroid] 100 mcg PO DAILY RX: oxyCODONE-APAP 5-325MG [Percocet 5-325 mg] 1 tab PO HS RX: Carboxymethylcellulose Sodium [Refresh Tears] 1 drop BOTH EYES BID PRN PRN Reason: Dry Eye(S) RX: buPROPion HCL [Wellbutrin XL] 300 mg PO DAILY RX: Docusate [Colace] 100 mg PO BID RX: Cholecalciferol (Vitamin D3) [Vitamin D3] 2,000 unit PO HS RX: Multivitamins, Thera [Multivitamin (formulary)] 1 tab PO DAILY RX: Vitamin B Complex 1 cap PO DAILY RX: Sulfamethox-Tmp 800-160Mg [Bactrim DS 800-160 mg] 1 tab PO DAILY PRN PRN Reason: UTI SYMPTOMS RX: Fluorometholone 0.1% Ophth Kathy [Fml] 1 drops BOTH EYES QID PRN PRN Reason: eye pressure RX: Sennosides [Ex-Lax Maximum Strength] 75 mg PO DAILY RX: Bimatoprost [Lumigan .01% Ophth Soln] 1 drop BOTH EYES HS RX: Bacillus Coagulans/Inulin [Probiotic with Prebiotic Cap] 2 cap PO DAILY Discharge Medication List Omeprazole [PriLOSEC] 20 mg PO AC-BID 15 Days capsule. 02/13/15 [Rx] Gabapentin 800 mg PO TID 09/04/15 [History] Oxybutynin Chloride [Ditropan] 10 mg PO BID 11/28/15 [History] Carboxymethylcellulose Sodium [Refresh Tears] 1 drop BOTH EYES BID PRN 06/30/16 [History] Ibuprofen [Motrin] 800 mg PO BID 06/30/16 [History] Levothyroxine Sodium [Synthroid] 100 mcg PO DAILY 06/30/16 [History] oxyCODONE-APAP 5-325MG [Percocet 5-325 mg] 1 tab PO HS 06/30/16 [History] buPROPion HCL [Wellbutrin XL] 300 mg PO DAILY 02/04/17 [History] Cholecalciferol (Vitamin D3) [Vitamin D3] 2,000 unit PO HS 06/16/18 [History] Docusate [Colace] 100 mg PO BID 06/16/18 [History] Multivitamins, Thera [Multivitamin (formulary)] 1 tab PO DAILY 01/23/19 [History] Vitamin B Complex 1 cap PO DAILY 01/23/19 [History] Fluorometholone 0.1% Ophth Kathy [Fml] 1 drops BOTH EYES QID PRN 05/23/19 [History] Sulfamethox-Tmp 800-160Mg [Bactrim DS 800-160 mg] 1 tab PO DAILY PRN 05/23/19 [History] Bacillus Coagulans/Inulin [Probiotic with Prebiotic Cap] 2 cap PO DAILY 09/09/19 [History] Bimatoprost [Lumigan .01% Ophth Soln] 1 drop BOTH EYES HS 09/09/19 [History] Sennosides [Ex-Lax Maximum Strength] 75 mg PO DAILY 09/09/19 [History] Azithromycin [Zithromax] 500 mg PO DAILY #5 tab 09/14/19 [Rx] Ciprofloxacin-Dexameth [Ciprodex Otic Susp] 4 drops RIGHT EAR BID #10 ml 09/14/19 [Rx] Nystatin 100,000 Unit/ml Susp [Mycostatin Oral Susp] 500,000 unit PO QID PRN #200 ml 09/14/19 [Rx] Follow up Appointment(s)/Referral(s): Jaskaran Pressley MD [Primary Care Provider] - 1 Week Patient Instructions/Handouts: Urinary Tract Infection in Women (DC), Community Acquired Pneumonia (DC)
--- NOTE | 2019-09-19 03:21 | CDI ---
Documentation Clarification Form Date: 09/19/2019 From: Tanner Graf Phone: If you have a question about this query, please contact Caron Sampson, [employer] at [phone] between 8am and 5pm. Admit Date: 09/09/2019 Discharge Date: 09/14/2019 Patient Name: oRxanne Jaffe Visit Number: [id number] ATTENTION: The Clinical Documentation Specialists (CDI) and [employer] Coding Staff appreciate your assistance in clarifying documentation. Please respond to the clarification below the line at the bottom and electronically sign. The CDI & [employer] Coding staff will review the response and follow-up if needed. Please note: Queries are made part of the Legal Health Record. If you have any questions, please contact the author of this message via ITS. Dear Jaskaran Kwok., The patient presented with cough and found to have pneumonia. History/Risk Factors: Pneumonia, hypothyroidism, ATN. WBC : 3.6L Blood cultures: Negative Vitals signs on admission: Temperature 98.7 F Pulse Rate 80 Respiratory 18 Blood Pressure 107/7 O2 Sat by Pulse 97 Treatment:Antibiotics Antibiotics: Zithromax, Zosyn In H&P and 09/[address] Ellis Boswell mentioned "Possible acute urinary tract infection or acute right lower pneumonia with possible sepsis present on admission with fever, acute urinary tract infection related to catheter". In your professional opinion, please clarify if these findings signify one of the following conditions, whether the condition is POA, and cause, if known: Condition Sepsis ruled out Sepsis secondary to catheter associated UTI Sepsis secondary to Pneumonia Sepsis secondary to catheter associate UTI and Pneumonia-This the correct diagnosis for this patient at this time. Other, please specify Unable to determine MTDD
== END 2019-09-14 10:35 | disposition home or self-care (01) | DRG 871 ==
LOC: EC 04:21 → 6NMEDSUR 06:12
PROVIDERS: ADMIT Family Medicine; ATTEND Family Medicine
DX: A41.9 Sepsis, unspecified organism (principal); J18.9 Pneumonia, unspecified organism; G93.41 Metabolic encephalopathy; N17.0 Acute kidney failure with tubular necrosis; T83.511A Infection and inflammatory reaction due to indwelling urethral catheter, initial encounter; N39.0 Urinary tract infection, site not specified; E87.1 Hypo-osmolality and hyponatremia; M79.7 Fibromyalgia; K21.9 Gastro-esophageal reflux disease without esophagitis; E66.9 Obesity, unspecified; E11.41 Type 2 diabetes mellitus with diabetic mononeuropathy; E03.9 Hypothyroidism, unspecified; D63.8 Anemia in other chronic diseases classified elsewhere; G89.4 Chronic pain syndrome; N31.2 Flaccid neuropathic bladder, not elsewhere classified; G43.909 Migraine, unspecified, not intractable, without status migrainosus; M19.90 Unspecified osteoarthritis, unspecified site; Z96.651 Presence of right artificial knee joint; F32.9 Major depressive disorder, single episode, unspecified; Z82.0 Family history of epilepsy and other diseases of the nervous system; Z87.01 Personal history of pneumonia (recurrent); Z79.899 Other long term (current) drug therapy; Z79.890 Hormone replacement therapy; Z88.1 Allergy status to other antibiotic agents; Z91.040 Latex allergy status; Z88.5 Allergy status to narcotic agent; Z88.8 Allergy status to other drugs, medicaments and biological substances; Z91.09 Other allergy status, other than to drugs and biological substances; Z86.19 Personal history of other infectious and parasitic diseases; Z90.49 Acquired absence of other specified parts of digestive tract; Z90.89 Acquired absence of other organs; Z98.890 Other specified postprocedural states; Z90.710 Acquired absence of both cervix and uterus; Z80.3 Family history of malignant neoplasm of breast; Z68.32 Body mass index [BMI] 32.0-32.9, adult; Z93.3 Colostomy status; Z98.49 Cataract extraction status, unspecified eye
CPT/HCPCS: 36415; 70450; 71046; 80048; 80053; 81001; 83605; 85025; 85027; 86038; 86431; 87040; 87070; 87086; 87205; 87502; 94640; 99284

== ENCOUNTER 2020-01-01 14:43 | Inpatient (IN) | payer MEDICARE, OTHER ==
[2020-01-01] MEDS ORDERED: ONDANSETRON 4 MG/2 ML VIAL IVP STA (15:26)
[2020-01-01] MEDS ORDERED: HYDROmorphone 0.5 MG/0.5 ML SYRINGE IVP STA ×2 (15:26→17:23)
--- NOTE | 2020-01-01 15:38 | ED ---
Abdominal Pain HPI - General Source: patient, RN notes reviewed Mode of arrival: wheelchair Limitations: physical limitation <Lazarus Gonsalez - Last Filed: 01/01/20 17:09> <Varinder Valderrama - Last Filed: 01/01/20 17:13> - General Chief Complaint: Abdominal Pain Stated Complaint: Poss Bowel Obstruction Time Seen by Provider: 01/01/20 15:17 - History of Present Illness Initial Comments: 64-year-old female presents emergency Department chief complaint of abdominal pain. Patient states pain started yesterday felt that she is constipated. Patient states started feeling bloated distended. Patient's concerned that she had multiple ball structures multiple abdominal surgeries. Patient has ileostomy, permanent urine catheter. Patient states this is caused by an accident. Patient's doesn't that she tried taking some lactulose this morning she started vomiting. She has emesis of bile. She has met with her prior obstruction she had emesis of stool. Patient denies any fever or chills no headache or dizziness no chest pain or shortness breath. (Lazarus Gonsalez) - Related Data Home Medications Medication Instructions Recorded Confirmed Gabapentin 800 mg PO TID 09/04/15 01/01/20 Oxybutynin Chloride [Ditropan] 10 mg PO BID 11/28/15 01/01/20 Ibuprofen [Motrin] 800 mg PO BID 06/30/16 01/01/20 Levothyroxine Sodium [Synthroid] 100 mcg PO DAILY 06/30/16 01/01/20 oxyCODONE-APAP 5-325MG [Percocet 1 tab PO HS 06/30/16 01/01/20 5-325 mg] buPROPion HCL [Wellbutrin XL] 300 mg PO DAILY 02/04/17 01/01/20 Cholecalciferol (Vitamin D3) 2,000 unit PO HS 06/16/18 01/01/20 [Vitamin D3] Docusate [Colace] 100 mg PO BID 06/16/18 01/01/20 Multivitamins, Thera [Multivitamin 1 tab PO DAILY 01/23/19 01/01/20 (formulary)] Vitamin B Complex 1 cap PO DAILY 01/23/19 01/01/20 Fluorometholone 0.1% Ophth Kathy 1 drops BOTH EYES QID PRN 05/23/19 01/01/20 [Fml] Sulfamethox-Tmp 800-160Mg [Bactrim 1 tab PO DAILY PRN 05/23/19 01/01/20 DS 800-160 mg] Bimatoprost [Lumigan .01% Ophth 1 drop BOTH EYES HS 09/09/19 01/01/20 Soln] Sennosides [Ex-Lax Maximum 75 mg PO DAILY 09/09/19 01/01/20 Strength] Fluticasone Nasal Whitt [Flonase 1 - 2 spr EA NOSTRIL DAILY 01/01/20 01/01/20 Nasal Whitt] Meclizine [Antivert] 25 mg PO BID 01/01/20 01/01/20 Previous Rx's Medication Instructions Recorded Omeprazole [PriLOSEC] 20 mg PO AC-BID 15 Days capsule. 02/13/15 Cefuroxime Axetil [Ceftin] 500 mg PO BID #10 tab 09/14/19 Nystatin 100,000 Unit/ml Susp 500,000 unit PO QID PRN #200 ml 09/14/19 [Mycostatin Oral Susp] Allergies Allergy/AdvReac Type Severity Reaction Status Date / Time adhesive tape Allergy Rash/Hives Verified 01/01/20 16:04 ciprofloxacin [From Cipro] Allergy Unknown Verified 01/01/20 16:04 colesevelam [From WelChol] Allergy Rash/Hives Verified 01/01/20 16:04 colesevelam HCl Allergy Rash/Hives Verified 01/01/20 16:04 [From WelChol] lamivudine Allergy Rash/Hives Verified 01/01/20 16:04 latex Allergy Dyspnea Verified 01/01/20 16:04 levofloxacin [From Levaquin] Allergy Rash/Hives/ Verified 01/01/20 16:04 Fever prochlorperazine edisylate Allergy Anaphylaxis Verified 01/01/20 16:04 [From Compazine] prochlorperazine maleate Allergy Anaphylaxis Verified 01/01/20 16:04 [From Compazine] vancomycin Allergy Rash/Hives/ Verified 01/01/20 16:04 Fever zidovudine Allergy Rash/Hives Verified 01/01/20 16:04 nitrofurantoin AdvReac Nausea & Verified 01/01/20 16:04 [From Macrobid] Vomiting/Dizziness nitroglycerin AdvReac cervical Verified 01/01/20 16:04 fusion spasms tramadol HCl [From Ultram] AdvReac WEAKNESS, Verified 01/01/20 16:04 DIZZYNESS zolpidem [From Ambien] AdvReac SLEEP Verified 01/01/20 16:04 WALKING COMBID Allergy Rash/Hives Uncoded 09/09/19 04:35 Review of Systems ROS Other: All systems not noted in ROS Statement are negative. <Lazarus Gonsalez - Last Filed: 01/01/20 17:09> ROS Other: All systems not noted in ROS Statement are negative. <Varinder Valderrama - Last Filed: 01/01/20 17:13> ROS Statement: Those systems with pertinent positive or pertinent negative responses have been documented in the HPI. Past Medical History Past Medical History: Chest Pain / Angina, Eye Disorder, Fibromyalgia, GERD/Reflux, Memory Impairment, Osteoarthritis (OA), Pneumonia, Thyroid Disorder Additional Past Medical History / Comment(s): . 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 MINOR, OCC Short term memory loss. DDD Cervical, Thoracic, Lumbar levels. Chronic Pain syndrome in Back. Proctosigmoiditis w/ Colostomy. Diverticulosis. Neuropathy kalyani legs/feet. Migraines. Veritgo. Glaucoma kalyani. KEISHA-BARRE, septic shock, History of Any Multi-Drug Resistant Organisms: C-DIFF Date of last positivie culture/infection: 2010 MDRO Source:: stool Past Surgical History: Adenoidectomy, Back Surgery, Bladder Surgery, Bowel Resection, Breast Surgery, Cholecystectomy, Heart Catheterization, Hysterectomy, Joint Replacement, Tonsillectomy Additional Past Surgical History / Comment(s): 12/06/13 Cardiac cath-normal. cer vical Fusion, Back surgury-rods/screws/cage, partial bowel resection with colostomy, total RIGHT KNEE REPLACEMENT, L knee arthroscopy, bladder suspension, cataracts breast augmentation. hip replacedment knee replacement Past Anesthesia/Blood Transfusion Reactions: Family History of Problems w/ Anesthesia, Postoperative Nausea & Vomiting (PONV) Additional Past Anesthesia/Blood Transfusion Reaction / Comment(s): FAMILY HAS PONV. Past Psychological History: Depression Smoking Status: Never smoker Past Alcohol Use History: None Reported Past Drug Use History: None Reported - Past Family History Father Family Medical History: Cancer, Musculoskeletal Disorder, Neurologic Disorder Additional Family Medical History / Comment(s): Father at 77 yrs. He had parkinson's dx. Mother Family Medical History: Cancer Additional Family Medical History / Comment(s): Mother had breast cancer. She is alive and 82 yrs old. <Lazarus Gonsalez - Last Filed: 01/01/20 17:09> General Exam Limitations: physical limitation General appearance: alert, in no apparent distress Head exam: Present: atraumatic, normocephalic, normal inspection Eye exam: Present: normal appearance, PERRL, EOMI. Absent: scleral icterus, conjunctival injection, periorbital swelling ENT exam: Present: normal exam, mucous membranes moist Neck exam: Present: normal inspection, full ROM. Absent: tenderness, meningismus, lymphadenopathy Respiratory exam: Present: normal lung sounds bilaterally. Absent: respiratory distress, wheezes, rales, rhonchi, stridor Cardiovascular Exam: Present: regular rate, normal rhythm, normal heart sounds. Absent: systolic murmur, diastolic murmur, rubs, gallop, clicks GI/Abdominal exam: Present: distended, tenderness, rigid, normal bowel sounds, other (Ileostomy and catheter noted). Absent: soft, guarding, rebound Neurological exam: Present: alert, oriented X3 Skin exam: Present: warm, dry, intact, normal color. Absent: rash <Lazarus Gonsalez - Last Filed: 01/01/20 17:09> Course <Varinder Valderrama - Last Filed: 01/01/20 17:13> Vital Signs 01/01/20 15:02 Temperature 98.6 F Pulse Rate 109 H Respiratory 18 Rate Blood Pressure 137/106 O2 Sat by Pulse 95 Oximetry - Reevaluation(s) Reevaluation #1: 01/01/20 17:13 PA supervision: I personally evaluate this case patient presented from her primary care doctor's office with complaints of 2 days of abdominal pain workup does demonstrate evidence of a partial bowel obstruction. Patient will be admitted with consultation to Dr. Brown. I did discuss the case with Dr. Pressley. (Varinder Valderrama) Medical Decision Making - Lab Data Result diagrams: 01/01/20 15:35 01/01/20 15:35 <Lazarus Gonsalez - Last Filed: 01/01/20 17:09> - Lab Data Result diagrams: 01/01/20 15:35 01/01/20 15:35 <Varinder Valderrama - Last Filed: 01/01/20 17:13> - Medical Decision Making 64-year-old female presents emergency from for concerns of possible bowel obstruction. CT shows evidence of partial small bowel obstruction or severe ileus I do feel this is related to partial bowel obstruction as she has a strong history patient will have NG tube placed. Patient be admitted to Dr. Pressley consult to Dr. Brown (Lazarus Gonsalez) - Lab Data Lab Results 01/01/20 01/01/20 01/01/20 Range/Units 15:35 15:35 15:35 WBC 12.0 H (3.8-10.6) k/uL RBC 4.28 (3.80-5.40) m/uL Hgb 13.2 (11.4-16.0) gm/dL Hct 38.9 (34.0-46.0) % MCV 90.9 (80.0-100.0) fL MCH 30.8 (25.0-35.0) pg MCHC 33.9 (31.0-37.0) g/dL RDW 14.8 (11.5-15.5) % Plt Count 331 (150-450) k/uL Neutrophils % 81 % Lymphocytes % 12 % Monocytes % 5 % Eosinophils % 2 % Basophils % 0 % Neutrophils # 9.7 H (1.3-7.7) k/uL Lymphocytes # 1.5 (1.0-4.8) k/uL Monocytes # 0.6 (0-1.0) k/uL Eosinophils # 0.2 (0-0.7) k/uL Basophils # 0.0 (0-0.2) k/uL Sodium 136 L (137-145) mmol/L Potassium 3.9 (3.5-5.1) mmol/L Chloride 104 (98-107) mmol/L Carbon Dioxide 22 (22-30) mmol/L Anion Gap 10 mmol/L BUN 9 (7-17) mg/dL Creatinine 0.59 (0.52-1.04) mg/dL Est GFR (CKD-EPI)AfAm >90 (>60 ml/min/1.73 sqM) Est GFR (CKD-EPI)NonAf >90 (>60 ml/min/1.73 sqM) Glucose 107 H (74-99) mg/dL Plasma Lactic Acid Matheus 0.8 (0.7-2.0) mmol/L Calcium 9.9 (8.4-10.2) mg/dL Total Bilirubin 0.3 (0.2-1.3) mg/dL AST 29 (14-36) U/L ALT 22 (4-34) U/L Alkaline Phosphatase 121 (38-126) U/L Total Protein 7.3 (6.3-8.2) g/dL Albumin 4.2 (3.5-5.0) g/dL Amylase 30 (30-110) U/L Lipase 46 (23-300) U/L Urine Color Urine Appearance (Clear) Urine pH (5.0-8.0) Ur Specific [place] (1.001-1.035) Urine Protein (Negative) Urine Glucose (UA) (Negative) Urine Ketones (Negative) Urine Blood (Negative) Urine Nitrite (Negative) Urine Bilirubin (Negative) Urine Urobilinogen (<2.0) mg/dL Ur Leukocyte Esterase (Negative) Urine RBC (0-5) /hpf Urine WBC (0-5) /hpf Ur Squamous Epith Cells (0-4) /hpf Urine Bacteria (None) /hpf Hyaline Casts (0-2) /lpf Urine Mucus (None) /hpf 01/01/20 Range/Units 16:33 WBC (3.8-10.6) k/uL RBC (3.80-5.40) m/uL Hgb (11.4-16.0) gm/dL Hct (34.0-46.0) % MCV (80.0-100.0) fL MCH (25.0-35.0) pg MCHC (31.0-37.0) g/dL RDW (11.5-15.5) % Plt Count (150-450) k/uL Neutrophils % % Lymphocytes % % Monocytes % % Eosinophils % % Basophils % % Neutrophils # (1.3-7.7) k/uL Lymphocytes # (1.0-4.8) k/uL Monocytes # (0-1.0) k/uL Eosinophils # (0-0.7) k/uL Basophils # (0-0.2) k/uL Sodium (137-145) mmol/L Potassium (3.5-5.1) mmol/L Chloride (98-107) mmol/L Carbon Dioxide (22-30) mmol/L Anion Gap mmol/L BUN (7-17) mg/dL Creatinine (0.52-1.04) mg/dL Est GFR (CKD-EPI)AfAm (>60 ml/min/1.73 sqM) Est GFR (CKD-EPI)NonAf (>60 ml/min/1.73 sqM) Glucose (74-99) mg/dL Plasma Lactic Acid Matheus (0.7-2.0) mmol/L Calcium (8.4-10.2) mg/dL Total Bilirubin (0.2-1.3) mg/dL AST (14-36) U/L ALT (4-34) U/L Alkaline Phosphatase (38-126) U/L Total Protein (6.3-8.2) g/dL Albumin (3.5-5.0) g/dL Amylase (30-110) U/L Lipase (23-300) U/L Urine Color Yellow Urine Appearance Clear (Clear) Urine pH 6.0 (5.0-8.0) Ur Specific [place] 1.022 (1.001-1.035) Urine Protein 1+ H (Negative) Urine Glucose (UA) Negative (Negative) Urine Ketones Negative (Negative) Urine Blood Moderate H (Negative) Urine Nitrite Negative (Negative) Urine Bilirubin Negative (Negative) Urine Urobilinogen <2.0 (<2.0) mg/dL Ur Leukocyte Esterase Trace H (Negative) Urine RBC >182 H (0-5) /hpf Urine WBC 5 (0-5) /hpf Ur Squamous Epith Cells <1 (0-4) /hpf Urine Bacteria Occasional H (None) /hpf Hyaline Casts 1 (0-2) /lpf Urine Mucus Many H (None) /hpf Disposition <Lazarus Gonsalez - Last Filed: 01/01/20 17:09> <Varinder Valderrama - Last Filed: 01/01/20 17:13> Clinical Impression: Partial small bowel obstruction Disposition: ADMITTED IP TO THIS HOSP Condition: Fair Referrals: Jaskaran Pressley MD [Primary Care Provider] - 1-2 days
[2020-01-01 15:57] LABS: Basophils % (A) 0 %; Eosinophils # (A) 0.2 k/uL (0-0.7); Eosinophils % (A) 2 %; HCT 38.9 % (34.0-46.0); HGB 13.2 gm/dL (11.4-16.0); Lymphocytes # (A) 1.5 k/uL (1.0-4.8); Lymphocytes % (A) 12 %; MCH 30.8 pg (25.0-35.0); MCHC 33.9 g/dL (31.0-37.0); MCV 90.9 fL (80.0-100.0); Mean Platelet Volume 7.8; Monocytes # (A) 0.6 k/uL (0-1.0); Monocytes % (A) 5 %; Neutrophils # (A) 9.7 k/uL (1.3-7.7); Neutrophils % (A) 81 %; Platelet Count 331 k/uL (150-450); RBC 4.28 m/uL (3.80-5.40); RDW 14.8 % (11.5-15.5)
[2020-01-01 16:08] LABS: ALT 22 U/L (4-34); AST 29 U/L (14-36); African American GFR (CKD) >90 (>60 ml/min/1.73 sqM); Albumin 4.2 g/dL (3.5-5.0); Alkaline Phosphatase 121 U/L (38-126); Amylase 30 U/L (30-110); Anion Gap 10 mmol/L; Blood Urea Nitrogen 9 mg/dL (7-17); Calcium 9.9 mg/dL (8.4-10.2); Carbon Dioxide 22 mmol/L (22-30); Chloride 104 mmol/L (98-107); Glucose 107 mg/dL (74-99); Non-African American GFR(CKD) >90 (>60 ml/min/1.73 sqM); Potassium 3.9 mmol/L (3.5-5.1); Sodium 136 mmol/L (137-145); Total Bilirubin 0.3 mg/dL (0.2-1.3); Total Protein 7.3 g/dL (6.3-8.2)
--- NOTE | 2020-01-01 16:46 | CT ---
EXAMINATION TYPE: CT abdomen pelvis w con DATE OF EXAM: 01/01/2020 COMPARISON: 01/11/2018 HISTORY: abdominal pain, SBO CT DLP: 1338.5 mGycm Automated exposure control for dose reduction was used. CONTRAST: Performed with IV Contrast, patient injected with 100 mL of Isovue 300. There is some patchy subsegmental atelectasis at the lung bases. Heart appears normal. There is no pl eural effusion. There is no pericardial effusion. There is bilateral breast implants. The stomach is intact. There are calcified splenic granulomata. Liver shows no focal defect. The bile ducts are not dilated. There is no adrenal mass. Kidneys show satisfactory contrast opacification. There is no hydronephrosi s. There is normal excretion on the delayed images. Ureters are not dilated. There is no retroperiton eal adenopathy. There is left side colostomy. There is suprapubic catheter in uncertain location. The balloon is anterior and may not be in the urinary bladder. There appears to be a diverticulum of the right side of the urinary bladder. Bladder measures 8 x 6 cm. There are multiple dilated air and fluid-filled loops of small bowel throughout the abdomen. Small liz wel measures up to 3.8 cm. There is air-fluid levels in the large bowel. Transition point not identif ied. There is irregular multiseptated cystic mass in the pelvis posteriorly that measures 7 cm and could b e fluid-filled rectal stump. There is no inguinal hernia. There is left hip prosthesis. There is mult ilevel posterior lumbar spine fusion surgery. I see no bony destructive process. The bony pelvis appe ars intact. There is multilevel lumbar laminectomy. IMPRESSION: Dilated small bowel with fluid levels suggestive of partial mechanical small bowel obstruction or sev ere small bowel ileus. There are large bowel fluid levels extending to the splenic flexure. Multiseptated cystic appearing mass in the rectal region could BE mucus and fluid-filled rectum. Tumo r is possible. This appears increased compared to old exam. Dilated bowel is a change compared to old exam. Suprapubic balloon catheter in uncertain location. This could be anterior to the urinary bladder.
[2020-01-01 16:53] LABS: Appearance,Urine Clear (Clear); Bacteria,Urine Occasional /hpf; Bilirubin,Urine Negative (Negative); Blood,Urine Moderate (Negative); Color,Urine Yellow; Glucose,Urine (UA) Negative (Negative); Hyaline Casts,Urine 1 /lpf (0-2); Ketones,Urine Negative (Negative); Leukocyte Esterase,Urine Trace (Negative); Mucus,Urine Many /hpf; Nitrite,Urine Negative (Negative); Protein,Urine 1+ (Negative); RBC,Urine >182 /hpf (0-5); Specific Gravity,Urine 1.022 (1.001-1.035); Squamous Epithelial Cell,Urine <1 /hpf (0-4); Urobilinogen,Urine <2.0 mg/dL (<2.0); WBC,Urine 5 /hpf (0-5)
[2020-01-01] MEDS ORDERED: NALOXONE 0.4 MG/ML 1 ML VIAL IV PRN (17:11)
[2020-01-01] MEDS: SODIUM CHLORIDE 0.9% 1,000 ML IV SCH (17:35)
[2020-01-01] MEDS: HYDROmorphone 0.5 MG/0.5 ML SYRINGE IVP PRN ×2 (20:17→22:41)
[2020-01-01] MEDS: ONDANSETRON 4 MG/2 ML VIAL IVP PRN (20:17)
[2020-01-02] MEDS: HYDROmorphone 0.5 MG/0.5 ML SYRINGE IVP PRN ×6 (02:14→19:08)
[2020-01-02] MEDS: SODIUM CHLORIDE 0.9% 1,000 ML IV SCH ×2 (02:16→19:06)
--- NOTE | 2020-01-02 08:18 | P.HPIM ---
History of Present Illness H&P Date: 01/02/20 Chief Complaint: constipation This is a history of physical 64-year-old white female with history of bladder atony who has significant multiple surgeries. The patient for the last 4-5 days as been having significant constipation having bloating. Workup in emergency room showed partial small bowel obstruction. She is passing flatus and last 5-7 days. She tried to use lactulose at home which was ineffective. She's had similar symptoms in the past. No fever or chills. There was significant vomiting which was described as somewhat bilious. She is now admitted for a ppropriate treatment. Review of Systems Constitutional: Denies chills, Denies fever Eyes: denies blurred vision, denies pain Ears, nose, mouth and throat: Denies headache, Denies sore throat Cardiovascular: Denies chest pain, Denies shortness of breath Respiratory: Denies cough Gastrointestinal: Reports as per HPI, Reports constipation, Reports loss of appetite, Reports nausea, Reports vomiting Genitourinary: Denies dysuria, Denies hematuria Musculoskeletal: Denies myalgias Past Medical History Past Medical History: Chest Pain / Angina, Eye Disorder, Fibromyalgia, GERD/Reflux, Memory Impairment, Osteoarthritis (OA), Pneumonia, Thyroid Disorder Additional Past Medical History / Comment(s): . 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 MINOR, OCC Short term memory loss. DDD Cervical, Thoracic, Lumbar levels. Chronic Pain syndrome in Back. Proctosigmoiditis w/ Colostomy. Diverticulosis. Neuropathy kalyani legs/feet. Migraines. Veritgo. Glaucoma kalyani. KEISHA-BARRE, septic shock, History of Any Multi-Drug Resistant Organisms: C-DIFF Date of last positivie culture/infection: 2010 MDRO Source:: stool Past Surgical History: Adenoidectomy, Back Surgery, Bladder Surgery, Bowel Resection, Breast Surgery, Cholecystectomy, Heart Catheterization, Hysterectomy, Joint Replacement, Tonsillectomy Additional Past Surgical History / Comment(s): 12/06/13 Cardiac cath-normal. cervical Fusion, Back surgury-rods/screws/cage, partial bowel resection with colostomy, total RIGHT KNEE REPLACEMENT, L knee arthroscopy, bladder suspension, cataracts breast augmentation. hip replacedment knee replacement Past Anesthesia/Blood Transfusion Reactions: Family History of Problems w/ Anesthesia, Postoperative Nausea & Vomiting (PONV) Additional Past Anesthesia/Blood Transfusion Reaction / Comment(s): FAMILY HAS PONV. Past Psychological History: Depression Additional Psychological History / Comment(s): PATIENT RESIDES WITH DAUGHTER Smoking Status: Never smoker Past Alcohol Use History: None Reported Past Drug Use History: None Reported - Past Family History Father Family Medical History: Cancer, Musculoskeletal Disorder, Neurologic Disorder Additional Family Medical History / Comment(s): Father at 77 yrs. He had parkinson's dx. Mother Family Medical History: Cancer Additional Family Medical History / Comment(s): Mother had breast cancer. She is alive and 82 yrs old. Medications and Allergies Home Medications Medication Instructions Recorded Confirmed Type Omeprazole [PriLOSEC] 20 mg PO AC-BID 15 Days capsule. 02/13/15 01/01/20 Rx Gabapentin 800 mg PO TID 09/04/15 01/01/20 History Oxybutynin Chloride [Ditropan] 10 mg PO BID 11/28/15 01/01/20 History Ibuprofen [Motrin] 800 mg PO BID 06/30/16 01/01/20 History Levothyroxine Sodium [Synthroid] 100 mcg PO DAILY 06/30/16 01/01/20 History oxyCODONE-APAP 5-325MG [Percocet 1 tab PO HS 06/30/16 01/01/20 History 5-325 mg] buPROPion HCL [Wellbutrin XL] 300 mg PO DAILY 02/04/17 01/01/20 History Cholecalciferol (Vitamin D3) 2,000 unit PO HS 06/16/18 01/01/20 History [Vitamin D3] Docusate [Colace] 100 mg PO BID 06/16/18 01/01/20 History Multivitamins, Thera [Multivitamin 1 tab PO DAILY 01/23/19 01/01/20 History (formulary)] Vitamin B Complex 1 cap PO DAILY 01/23/19 01/01/20 History Fluorometholone 0.1% Ophth Kathy 1 drops BOTH EYES QID PRN 05/23/19 01/01/20 History [Fml] Sulfamethox-Tmp 800-160Mg [Bactrim 1 tab PO DAILY PRN 05/23/19 01/01/20 History DS 800-160 mg] Bimatoprost [Lumigan .01% Ophth 1 drop BOTH EYES HS 09/09/19 01/01/20 History Soln] Sennosides [Ex-Lax Maximum 75 mg PO DAILY 09/09/19 01/01/20 History Strength] Cefuroxime Axetil [Ceftin] 500 mg PO BID #10 tab 09/14/19 01/01/20 Rx Nystatin 100,000 Unit/ml Susp 500,000 unit PO QID PRN #200 ml 09/14/19 01/01/20 Rx [Mycostatin Oral Susp] Fluticasone Nasal [place] [Flonase 1 - 2 spr EA NOSTRIL DAILY 01/01/20 01/01/20 History Nasal [place]] Meclizine [Antivert] 25 mg PO BID 01/01/20 01/01/20 History Allergies Allergy/AdvReac Type Severity Reaction Status Date / Time adhesive tape Allergy Rash/Hives Verified 01/01/20 16:04 ciprofloxacin [From Cipro] Allergy Unknown Verified 01/01/20 16:04 colesevelam [From WelChol] Allergy Rash/Hives Verified 01/01/20 16:04 colesevelam HCl Allergy Rash/Hives Verified 01/01/20 16:04 [From WelChol] lamivudine Allergy Rash/Hives Verified 01/01/20 16:04 latex Allergy Dyspnea Verified 01/01/20 16:04 levofloxacin [From Levaquin] Allergy Rash/Hives/ Verified 01/01/20 16:04 Fever prochlorperazine edisylate Allergy Anaphylaxis Verified 01/01/20 16:04 [From Compazine] prochlorperazine maleate Allergy Anaphylaxis Verified 01/01/20 16:04 [From Compazine] vancomycin Allergy Rash/Hives/ Verified 01/01/20 16:04 Fever zidovudine Allergy Rash/Hives Verified 01/01/20 16:04 nitrofurantoin AdvReac Nausea & Verified 01/01/20 16:04 [From Macrobid] Vomiting/Dizziness nitroglycerin AdvReac cervical Verified 01/01/20 16:04 fusion spasms tramadol HCl [From Ultram] AdvReac WEAKNESS, Verified 01/01/20 16:04 DIZZYNESS zolpidem [From Ambien] AdvReac SLEEP Verified 01/01/20 16:04 WALKING COMBID Allergy Rash/Hives Uncoded 09/09/19 04:35 Physical Exam Vitals: Vital Signs Temp Pulse Pulse Resp BP BP Pulse Ox 01/02/20 07:24 92 16 01/02/20 03:19 16 01/02/20 00:54 98.2 F 92 110/68 93 L 01/01/20 23:30 18 01/01/20 21:30 18 01/01/20 21:00 98.4 F 95 18 134/73 91 L 01/01/20 20:36 97.3 F L 90 18 117/56 96 01/01/20 15:02 98.6 F 109 H 18 137/106 95 Intake and Output 01/01/20 01/02/20 01/02/20 22:59 06:59 14:59 Intake Total 200 800 Output Total 200 650 600 Balance 0 150 -600 Intake: Intake, IV Titration 200 800 Amount Sodium Chloride 0.9% 1, 200 800 000 ml @ 100 mls/hr IV . Q10H [facility] Rx#:[id number] Output: Gastric Drainage 200 50 Urine 600 600 Other: Weight 79.379 kg - Constitutional General appearance: average body habitus, no acute distress - EENT Eyes: EOMI - Neck Neck: no lymphadenopathy - Respiratory Respiratory: bilateral: CTA - Cardiovascular Rhythm: regular Heart sounds: normal: S1, S2 Abnormal Heart Sounds: no S3 Gallop - Gastrointestinal General gastrointestinal: absent bowel sounds - Neurologic Neurologic: CNII-XII intact - Psychiatric Psychiatric: A&O x's 3, appropriate affect Results CBC & Chem 7: 01/01/20 15:35 01/01/20 15:35 Labs: Abnormal Lab Results - Last 24 Hours (Table) 01/01/20 01/01/20 01/01/20 Range/Units 15:35 15:35 16:33 WBC 12.0 H (3.8-10.6) k/uL Neutrophils # 9.7 H (1.3-7.7) k/uL Sodium 136 L (137-145) mmol/L Glucose 107 H (74-99) mg/dL Urine Protein 1+ H (Negative) Urine Blood Moderate H (Negative) Ur Leukocyte Esterase Trace H (Negative) Urine RBC >182 H (0-5) /hpf Urine Bacteria Occasional H (None) /hpf Urine Mucus Many H (None) /hpf Thrombosis Risk Factor Assmnt - Choose All That Apply Any of the Below Risk Factors Present?: Yes Each Factor Represents 1 point: Obesity (BMI >25) Other Risk Factors: Yes Each Risk Factor Represents 2 Points: Age 61-74 years Thrombosis Risk Factor Assessment Total Risk Factor Score: 3 Thrombosis Risk Factor Assessment Level: Moderate Risk Assessment and Plan (1) Partial small bowel obstruction Current Visit: Yes Status: Acute Code(s): K56.600 - PARTIAL INTESTINAL OBSTRUCTION, UNSPECIFIED TO CAUSE SNOMED Code(s): 171347155 (2) Abdominal pain Current Visit: No Status: Acute Code(s): R10.9 - UNSPECIFIED ABDOMINAL PAIN SNOMED Code(s): 03800789 (3) Atonic urinary bladder Current Visit: No Status: Acute Code(s): N31.2 - FLACCID NEUROPATHIC BLADDER, NOT ELSEWHERE CLASSIFIED SNOMED Code(s): 741317775 (4) GERD (gastroesophageal reflux disease) Current Visit: No Status: Acute Code(s): K21.9 - GASTRO-ESOPHAGEAL REFLUX DISEASE WITHOUT ESOPHAGITIS SNOMED Code(s): 317445351 (5) History of creation of ostomy Current Visit: No Status: Acute Code(s): Z93.9 - ARTIFICIAL OPENING STATUS, UNSPECIFIED SNOMED Code(s): 112256079 (6) Ileus Current Visit: No Status: Acute Code(s): K56.7 - ILEUS, UNSPECIFIED SNOMED Code(s): 639595701 (7) Major depressive disorder, recurrent severe without psychotic features Current Visit: No Status: Acute Priority: High Code(s): F33.2 - MAJOR DEPRESSV DISORDER, RECURRENT SEVERE W/O PSYCH FEATURES SNOMED Code(s): 45326131 (8) Nausea and vomiting Current Visit: No Status: Acute Code(s): R11.2 - NAUSEA WITH VOMITING, UNSPECIFIED SNOMED Code(s): 27835363 (9) Depression Current Visit: No Status: Chronic Code(s): F32.9 - MAJOR DEPRESSIVE DISORDER, SINGLE EPISODE, UNSPECIFIED SNOMED Code(s): 90025164 Plan: surgery is now consulted. We will continue to follow appropriately. Check CBC and CMP in a.m. Continue NG tube suction. we'll reconcile medication once nothing by mouth is lifted Prognosis is guarded secondary to her multiple comorbidities.
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
[2020-01-02] MEDS: ONDANSETRON 4 MG/2 ML VIAL IVP PRN ×2 (12:03→20:16)
[2020-01-03] MEDS: SODIUM CHLORIDE 0.9% 1,000 ML IV SCH ×3 (00:12→21:41)
--- NOTE | 2020-01-03 08:23 | P.PN ---
Subjective Progress Note Date: 01/03/20 Principal diagnosis: This is a continue progress on a 64-year-old white female admitted for partial small bowel obstruction and ileus. No flatus is noted. No significant nausea. NG tube suction is continued. Appreciate surgical consultation. Objective - Vital Signs Vital signs: Vital Signs Temp 99.2 F 01/03/20 07:00 Pulse 94 01/03/20 07:00 Resp 18 01/03/20 07:00 BP 145/72 01/03/20 07:00 Pulse Ox 96 01/03/20 07:00 Intake & Output 01/02/20 01/03/20 01/03/20 18:59 06:59 18:59 Intake Total 800 1500 Output Total 1200 1200 Balance -400 300 Intake: Intake, IV Titration 800 1500 Amount Sodium Chloride 0.9% 1, 800 1500 000 ml @ 100 mls/hr IV . Q10H [facility] Rx#:[id number] Output: Gastric Drainage 200 Urine 1200 1000 - Constitutional General appearance: Present: average body habitus - EENT Eyes: Absent: abnormal pupil - Neck Neck: Absent: lymphadenopathy - Respiratory Respiratory: bilateral: CTA - Cardiovascular Rhythm: regular Heart sounds: normal: S1, S2 Abnormal Heart Sounds: Absent: S3 Gallop - Gastrointestinal General gastrointestinal: Present: decreased bowel sounds - Integumentary Integumentary: Present: normal - Neurologic Neurologic: Present: CNII-XII intact. Absent: focal deficits - Psychiatric Psychiatric: Present: A&O x's 3 - Labs CBC & Chem 7: 01/01/20 15:35 01/01/20 15:35 Assessment and Plan (1) Partial small bowel obstruction Current Visit: Yes Status: Acute Code(s): K56.600 - PARTIAL INTESTINAL OBSTRUCTION, UNSPECIFIED TO CAUSE SNOMED Code(s): 772265335 (2) Abdominal pain Current Visit: No Status: Acute Code(s): R10.9 - UNSPECIFIED ABDOMINAL PAIN SNOMED Code(s): 51544731 (3) Atonic urinary bladder Current Visit: No Status: Acute Code(s): N31.2 - FLACCID NEUROPATHIC BLADDER, NOT ELSEWHERE CLASSIFIED SNOMED Code(s): 161655705 (4) GERD (gastroesophageal reflux disease) Current Visit: No Status: Acute Code(s): K21.9 - GASTRO-ESOPHAGEAL REFLUX DISEASE WITHOUT ESOPHAGITIS SNOMED Code(s): 928955469 (5) History of creation of ostomy Current Visit: No Status: Acute Code(s): Z93.9 - ARTIFICIAL OPENING STATUS, UNSPECIFIED SNOMED Code(s): 741012348 (6) Ileus Current Visit: No Status: Acute Code(s): K56.7 - ILEUS, UNSPECIFIED SNOMED Code(s): 548006846 (7) Major depressive disorder, recurrent severe without psychotic features Current Visit: No Status: Acute Priority: High Code(s): F33.2 - MAJOR DEPRESSV DISORDER, RECURRENT SEVERE W/O PSYCH FEATURES SNOMED Code(s): 28370334 (8) Nausea and vomiting Current Visit: No Status: Acute Code(s): R11.2 - NAUSEA WITH VOMITING, UNSPECIFIED SNOMED Code(s): 51156548 (9) Depression Current Visit: No Status: Chronic Code(s): F32.9 - MAJOR DEPRESSIVE DISORDER, SINGLE EPISODE, UNSPECIFIED SNOMED Code(s): 19544155 Plan: surgery is now consulted. We will continue to follow appropriately. Check CBC and CMP in a.m. Continue NG tube suction. Prognosis is guarded secondary to her multiple comorbidities.
--- NOTE | 2020-01-03 09:16 | P.PN ---
Progress Note - Text Progress Note Date: 01/03/20 Patient has still has complaints of some crampy abdominal pain. She has had decreased output through her NG tube. On exam vital signs are stable. Abdomen soft. Patient will be given some ice chips today. Hopefully her ileus/partial small bowel charge will resolve with nasogastric tube decompression.
[2020-01-03] MEDS: HYDROmorphone 0.5 MG/0.5 ML SYRINGE IVP PRN ×2 (10:11→19:45)
[2020-01-03] MEDS: ONDANSETRON 4 MG/2 ML VIAL IVP PRN ×2 (10:12→19:50)
[2020-01-04] MEDS: SODIUM CHLORIDE 0.9% 1,000 ML IV SCH ×2 (06:18→14:41)
--- NOTE | 2020-01-04 11:20 | P.PN ---
Subjective Principal diagnosis: This is a continue progress on a 64-year-old white female admitted for partial small bowel obstruction and ileus. No flatus is noted. No significant nausea. NG tube suction is continued. Appreciate surgical consultation. The patient states no flatus as of yet. Objective - Vital Signs Vital signs: Vital Signs Temp 98.4 F 01/04/20 07:00 Pulse 89 01/04/20 07:00 Resp 18 01/04/20 07:00 BP 134/74 01/04/20 07:00 Pulse Ox 96 01/04/20 07:00 Intake & Output 01/03/20 01/04/20 01/04/20 18:59 06:59 18:59 Intake Total 800 Output Total 1000 2400 Balance -200 -2400 Weight 79.379 kg Intake: Intake, IV Titration 800 Amount Sodium Chloride 0.9% 1, 800 000 ml @ 100 mls/hr IV . Q10H [facility] Rx#:[id number] Output: Urine 1000 2400 Other: # Voids 3 1 - Constitutional General appearance: Present: average body habitus - EENT Eyes: Absent: abnormal pupil ENT: Absent: hard of hearing - Neck Neck: Absent: lymphadenopathy - Respiratory Respiratory: bilateral: CTA - Gastrointestinal General gastrointestinal: Present: decreased bowel sounds - Neurologic Neurologic: Present: CNII-XII intact - Labs CBC & Chem 7: 01/01/20 15:35 01/01/20 15:35 Assessment and Plan (1) Partial small bowel obstruction Current Visit: Yes Status: Acute Code(s): K56.600 - PARTIAL INTESTINAL OBSTRUCTION, UNSPECIFIED TO CAUSE SNOMED Code(s): 456785386 (2) Abdominal pain Current Visit: No Status: Acute Code(s): R10.9 - UNSPECIFIED ABDOMINAL PAIN SNOMED Code(s): 85955913 (3) Atonic urinary bladder Current Visit: No Status: Acute Code(s): N31.2 - FLACCID NEUROPATHIC BLADDER, NOT ELSEWHERE CLASSIFIED SNOMED Code(s): 712443603 (4) GERD (gastroesophageal reflux disease) Current Visit: No Status: Acute Code(s): K21.9 - GASTRO-ESOPHAGEAL REFLUX DISEASE WITHOUT ESOPHAGITIS SNOMED Code(s): 807927704 (5) History of creation of ostomy Current Visit: No Status: Acute Code(s): Z93.9 - ARTIFICIAL OPENING STATUS, UNSPECIFIED SNOMED Code(s): 096171234 (6) Ileus Current Visit: No Status: Acute Code(s): K56.7 - ILEUS, UNSPECIFIED SNOMED Code(s): 890632119 (7) Major depressive disorder, recurrent severe without psychotic features Current Visit: No Status: Acute Priority: High Code(s): F33.2 - MAJOR DEPRESSV DISORDER, RECURRENT SEVERE W/O PSYCH FEATURES SNOMED Code(s): 50638964 (8) Nausea and vomiting Current Visit: No Status: Acute Code(s): R11.2 - NAUSEA WITH VOMITING, UNSPECIFIED SNOMED Code(s): 52540009 (9) Depression Current Visit: No Status: Chronic Code(s): F32.9 - MAJOR DEPRESSIVE DISORDER, SINGLE EPISODE, UNSPECIFIED SNOMED Code(s): 54069191 Plan: surgery is now consulted. We will continue to follow appropriately. Check CBC and CMP in a.m. Continue NG tube suction. Prognosis is guarded secondary to her multiple comorbidities.
--- NOTE | 2020-01-04 11:27 | P.PN ---
Progress Note - Text Progress Note Date: 01/04/20 The patient feels better. She has some limited output through her colostomy. On exam vital signs are stable. Abdomen soft. Small bowel obstruction most likely related to adhesions. Patient continued receiving NG tube decompression. Hopefully her symptoms will resolve with conservative therapy.
[2020-01-04 11:33] LABS: HCT 37.4 % (34.0-46.0); HGB 12.1 gm/dL (11.4-16.0); MCH 29.5 pg (25.0-35.0); MCHC 32.4 g/dL (31.0-37.0); MCV 90.8 fL (80.0-100.0); Mean Platelet Volume 7.4; Platelet Count 306 k/uL (150-450); RBC 4.12 m/uL (3.80-5.40); RDW 14.5 % (11.5-15.5); WBC 11.9 k/uL (3.8-10.6)
[2020-01-04 11:44] LABS: ALT 34 U/L (4-34); AST 45 U/L (14-36); African American GFR (CKD) >90 (>60 ml/min/1.73 sqM); Albumin 3.9 g/dL (3.5-5.0); Alkaline Phosphatase 104 U/L (38-126); Anion Gap 9 mmol/L; Blood Urea Nitrogen 12 mg/dL (7-17); Calcium 9.3 mg/dL (8.4-10.2); Carbon Dioxide 22 mmol/L (22-30); Chloride 104 mmol/L (98-107); Glucose 90 mg/dL (74-99); Magnesium 2.1 mg/dL (1.6-2.3); Non-African American GFR(CKD) >90 (>60 ml/min/1.73 sqM); Potassium 4.5 mmol/L (3.5-5.1); Sodium 135 mmol/L (137-145); Total Bilirubin 0.3 mg/dL (0.2-1.3); Total Protein 6.7 g/dL (6.3-8.2)
[2020-01-04 12:07] LABS: Triglycerides 109 mg/dL (<150)
[2020-01-04] MEDS ORDERED: MVI, ADULT NO.4 WITH VIT K 10 ML, TRACE (CONC-1ML/DOSE) 1 ML in AMINO ACID 4.25%-D10W+L... IV ONE ×3 (13:00)
[2020-01-04] MEDS: FAT EMULSION 20% 250 ML in EMPTY BAG 1 BAG IV SCH (14:41)
[2020-01-04 20:18] LABS: Glucose,Whole Blood 103 mg/dL (75-99)
[2020-01-04] MEDS: HYDROmorphone 0.5 MG/0.5 ML SYRINGE IVP PRN (20:22)
[2020-01-04] MEDS: ONDANSETRON 4 MG/2 ML VIAL IVP PRN (20:23)
[2020-01-05] MEDS: SODIUM CHLORIDE 0.9% 1,000 ML IV SCH ×3 (03:44→20:26)
[2020-01-05] MEDS: HYDROmorphone 0.5 MG/0.5 ML SYRINGE IVP PRN ×5 (05:31→19:44)
[2020-01-05] MEDS: 1: MVI, ADULT NO.4 WITH VIT K 10 ML, TRACE (CONC-1ML/DOSE) 1 ML in AMINO ACID 4.25%-D10W IV SCH ×6 (05:32→20:25)
[2020-01-05 06:31] LABS: Glucose,Whole Blood 151 mg/dL (75-99)
--- NOTE | 2020-01-05 07:55 | P.PN ---
Subjective Principal diagnosis: This is a continue progress on a 64-year-old white female admitted for partial small bowel obstruction and ileus. No flatus is noted. No significant nausea. NG tube suction is continued. Appreciate surgical consultation. The patient states no flatus as of yet. Appreciate Surgical Input. She Is Complaining of Right Hand Pain Related Os Arthritis. Objective - Vital Signs Vital signs: Vital Signs Temp 98.8 F 01/05/20 02:15 Pulse 84 01/05/20 02:15 Resp 14 01/05/20 02:15 BP 117/73 01/05/20 02:15 Pulse Ox 96 01/05/20 02:15 Intake & Output 01/04/20 01/05/20 01/05/20 18:59 06:59 18:59 Output Total 1700 1800 Balance -1700 -1800 Weight 79.379 kg 83 kg Output: Urine 1700 1800 Other: # Voids 1 - Constitutional General appearance: Present: average body habitus - EENT Eyes: Absent: abnormal pupil - Neck Neck: Absent: lymphadenopathy - Respiratory Respiratory: bilateral: CTA - Cardiovascular Rhythm: regular Heart sounds: normal: S1, S2 - Gastrointestinal General gastrointestinal: Present: decreased bowel sounds, tenderness - Labs CBC & Chem 7: 01/04/20 11:09 01/04/20 11:14 Labs: Abnormal Lab Results - Last 24 Hours (Table) 01/04/20 01/04/20 01/04/20 Range/Units 11:09 11:14 20:17 WBC 11.9 H (3.8-10.6) k/uL Sodium 135 L (137-145) mmol/L Creatinine 0.47 L (0.52-1.04) mg/dL POC Glucose (mg/dL) 103 H (75-99) mg/dL AST 45 H (14-36) U/L 01/05/20 Range/Units 06:29 WBC (3.8-10.6) k/uL Sodium (137-145) mmol/L Creatinine (0.52-1.04) mg/dL POC Glucose (mg/dL) 151 H (75-99) mg/dL AST (14-36) U/L Assessment and Plan (1) Partial small bowel obstruction Current Visit: Yes Status: Acute Code(s): K56.600 - PARTIAL INTESTINAL OBSTRUCTION, UNSPECIFIED TO CAUSE SNOMED Code(s): 616438485 (2) Abdominal pain Current Visit: No Status: Acute Code(s): R10.9 - UNSPECIFIED ABDOMINAL PAIN SNOMED Code(s): 89576807 (3) Atonic urinary bladder Current Visit: No Status: Acute Code(s): N31.2 - FLACCID NEUROPATHIC BLADD ER, NOT ELSEWHERE CLASSIFIED SNOMED Code(s): 184954953 (4) GERD (gastroesophageal reflux disease) Current Visit: No Status: Acute Code(s): K21.9 - GASTRO-ESOPHAGEAL REFLUX DISEASE WITHOUT ESOPHAGITIS SNOMED Code(s): 641503121 (5) History of creation of ostomy Current Visit: No Status: Acute Code(s): Z93.9 - ARTIFICIAL OPENING STATUS, UNSPECIFIED SNOMED Code(s): 330163080 (6) Ileus Current Visit: No Status: Acute Code(s): K56.7 - ILEUS, UNSPECIFIED SNOMED Code(s): 343874979 (7) Major depressive disorder, recurrent severe without psychotic features Current Visit: No Status: Acute Priority: High Code(s): F33.2 - MAJOR DEPRESSV DISORDER, RECURRENT SEVERE W/O PSYCH FEATURES SNOMED Code(s): 70801983 (8) Nausea and vomiting Current Visit: No Status: Acute Code(s): R11.2 - NAUSEA WITH VOMITING, UNSPECIFIED SNOMED Code(s): 03396184 (9) Depression Current Visit: No Status: Chronic Code(s): F32.9 - MAJOR DEPRESSIVE DISORDER, SINGLE EPISODE, UNSPECIFIED SNOMED Code(s): 32918978 Plan: We will continue to follow appropriately. Check CBC and CMP in a.m. Continue NG tube suction. Prognosis is guarded secondary to her multiple comorbidities. Dr. Boswell's group will be covering the weekend.
[2020-01-05] MEDS: ONDANSETRON 4 MG/2 ML VIAL IVP PRN (10:13)
[2020-01-05 10:44] LABS: African American GFR (CKD) >90 (>60 ml/min/1.73 sqM); Anion Gap 8 mmol/L; Blood Urea Nitrogen 15 mg/dL (7-17); Calcium 9.3 mg/dL (8.4-10.2); Carbon Dioxide 22 mmol/L (22-30); Chloride 104 mmol/L (98-107); Glucose 131 mg/dL (74-99); Magnesium 2.1 mg/dL (1.6-2.3); Non-African American GFR(CKD) >90 (>60 ml/min/1.73 sqM); Phosphorus 3.2 mg/dL (2.5-4.5); Potassium 4.2 mmol/L (3.5-5.1); Sodium 134 mmol/L (137-145)
--- NOTE | 2020-01-05 11:23 | XR ---
2 view abdomen HISTORY: Small bowel obstruction To views the abdomen on [address] scan 01/01/2020 There is an NG tube coiled within the stomach. Postop changes are noted to the lumbar spine and left hip. No evident pneumoperitoneum. There are air-fluid levels present similar to prior exam. Ostomy is present in the left lower quadrant. No definite bowel distention. Multiple phleboliths are present w ithin the pelvis. Postop change noted at the pubic symphysis. There is an overlying tubing present wh ich likely corresponds to the suprapubic catheter. IMPRESSION: Air-fluid levels are present without bowel distention, correlate for ileus rather than liz wel obstruction, follow-up as indicated.
[2020-01-05] MEDS: METOCLOPRAMIDE 5 MG/ML 2 ML VIAL IVP PRN ×2 (11:49→19:53)
--- NOTE | 2020-01-05 13:09 | P.PN ---
Subjective Progress Note Date: 01/05/20 CHIEF COMPLAINT: Bowel obstruction HISTORY OF PRESENT ILLNESS: The patient is a 64-year-old female, with multiple abdominal surgeries who admitted to the hospital secondary to small bowel obstruction. She reports today having some output from the ostomy. She does report persistent abdominal pain. His nasogastric tube with bilious output. She claims of mild nausea. No emesis. ROS: No reports of vomiting. No fevers or chills. No new chest pain. No productive sputum PHYSICAL EXAM: VITAL SIGNS: Reviewed. Afebrile CONSTITUTIONAL: Well developed and in no acute distress. EYES: Conjuctivae without sclera icterus. Extraocular movements grossly intact. HEAD, EARS, NOSE, THROAT: Dry buccal mucosa. Head is atraumatic, normocephalic. Hears conversational speech. No nasal drainage. NECK: Supple. No thyroidomegaly. RESPIRATORY: Non-labored respirations and equal bilateral excursions. CARDIOVASCULAR: Palpable 2+ radial pulses. ABDOMEN: Soft. No peritonitis. She prepared a catheter present MUSCULOSKELETAL: No gross deformity of the lower extremities noted. No clubbing. No cyanosis. SKIN: Good skin turgor. Well perfused. NEUROLOGIC: Cranial nerves II through XII grossly intact. No focal or lateralizing signs. PSYCH: Appropriate affect. Alert and oriented to person, place and time. CLINICAL LABS: White blood cell count of 11.9 from yesterday. STUDIES: CT of the abdomen and pelvis independently reviewed demonstrating small bowel dilation without definitive transition point. RADIOLOGY: Report reviewed with findings of multicystic mass along the rectum and presence of suprapubic catheter ASSESSMENT: 1. Small bowel obstruction 2. Descending ostomy creation 3. Suprapubic catheter 4. History of multiple abdominal surgeries PLAN: 1. Patient has history of hostile surgical abdomen continue with conservative measures. 2. Repeat abdominal x-ray advised. She does report function of her ostomy and flatus 3. Recommend TPN for prolonged nothing by mouth status secondary to ileus versus small bowel obstruction Objective - Vital Signs Vital signs: Vital Signs Temp 98.7 F 01/05/20 07:43 Pulse 78 01/05/20 07:43 Resp 16 01/05/20 07:43 BP 130/71 01/05/20 07:43 Pulse Ox 93 L 01/05/20 07:43 Intake & Output 01/04/20 01/05/20 01/05/20 18:59 06:59 18:59 Output Total 1700 1800 Balance -1700 -1800 Weight 79.379 kg 83 kg Output: Urine 1700 1800 Other: # Voids 1 - Labs CBC & Chem 7: 01/04/20 11:09 01/05/20 09:20 Labs: Abnormal Lab Results - Last 24 Hours (Table) 01/04/20 01/05/20 01/05/20 Range/Units 20:17 06:29 09:20 Sodium 134 L (137-145) mmol/L Creatinine 0.47 L (0.52-1.04) mg/dL Glucose 131 H (74-99) mg/dL POC Glucose (mg/dL) 103 H 151 H (75-99) mg/dL Assessment and Plan (1) Peritoneal adhesions with obstruction Current Visit: Yes Status: Acute Code(s): K56.50 - INTESTNL ADHESIONS, UNSP TO PARTIAL VERSUS COMPLETE OBST SNOMED Code(s): 08278863 (2) Colostomy in place Current Visit: Yes Status: Acute Code(s): Z93.3 - COLOSTOMY STATUS SNOMED Code(s): 925036389 (3) Suprapubic catheter Current Visit: Yes Status: Acute Code(s): Z93.59 - OTHER CYSTOSTOMY STATUS SNOMED Code(s): 825053410 (4) Partial small bowel obstruction Current Visit: Yes Status: Acute Code(s): K56.600 - PARTIAL INTESTINAL OBSTRUCTION, UNSPECIFIED TO CAUSE SNOMED Code(s): 566217579 (5) Abdominal pain Current Visit: No Status: Acute Code(s): R10.9 - UNSPECIFIED ABDOMINAL PAIN SNOMED Code(s): 77981449 (6) Inadequate dietary intake of protein Current Visit: Yes Status: Acute Code(s): E63.9 - NUTRITIONAL DEFICIENCY, UNSPECIFIED SNOMED Code(s): 706747022
[2020-01-05] MEDS: FAT EMULSION 20% 250 ML in EMPTY BAG 1 BAG IV SCH (13:10)
[2020-01-05 13:14] LABS: Glucose,Whole Blood 129 mg/dL (75-99)
[2020-01-05 18:34] LABS: Glucose,Whole Blood 123 mg/dL (75-99)
[2020-01-06 00:52] LABS: Glucose,Whole Blood 132 mg/dL (75-99)
[2020-01-06] MEDS: HYDROmorphone 0.5 MG/0.5 ML SYRINGE IVP PRN ×4 (02:46→17:06)
[2020-01-06] MEDS: SODIUM CHLORIDE 0.9% 1,000 ML IV SCH ×2 (05:58→18:51)
[2020-01-06] MEDS: ONDANSETRON 4 MG/2 ML VIAL IVP PRN (06:10)
[2020-01-06 06:14] LABS: Glucose,Whole Blood 125 mg/dL (75-99)
[2020-01-06 09:41] LABS: African American GFR (CKD) >90 (>60 ml/min/1.73 sqM); Anion Gap 7 mmol/L; Blood Urea Nitrogen 14 mg/dL (7-17); Calcium 9.3 mg/dL (8.4-10.2); Carbon Dioxide 24 mmol/L (22-30); Chloride 103 mmol/L (98-107); Glucose 141 mg/dL (74-99); Magnesium 1.9 mg/dL (1.6-2.3); Non-African American GFR(CKD) >90 (>60 ml/min/1.73 sqM); Phosphorus 3.3 mg/dL (2.5-4.5); Potassium 4.6 mmol/L (3.5-5.1); Sodium 134 mmol/L (137-145)
[2020-01-06 10:25] LABS: Basophils % (A) 0 %; Eosinophils # (A) 0.1 k/uL (0-0.7); Eosinophils % (A) 0 %; HCT 37.8 % (34.0-46.0); HGB 12.5 gm/dL (11.4-16.0); Lymphocytes # (A) 1.5 k/uL (1.0-4.8); Lymphocytes % (A) 12 %; MCH 30.4 pg (25.0-35.0); MCHC 33.2 g/dL (31.0-37.0); MCV 91.7 fL (80.0-100.0); Mean Platelet Volume 8.3; Monocytes # (A) 0.9 k/uL (0-1.0); Monocytes % (A) 7 %; Neutrophils # (A) 10.1 k/uL (1.3-7.7); Neutrophils % (A) 80 %; Platelet Count 286 k/uL (150-450); RBC 4.13 m/uL (3.80-5.40); RDW 14.7 % (11.5-15.5); WBC 12.7 k/uL (3.8-10.6)
[2020-01-06] MEDS: 1: MVI, ADULT NO.4 WITH VIT K 10 ML, TRACE (CONC-1ML/DOSE) 1 ML in AMINO ACID 4.25%-D10W IV SCH ×3 (10:51)
--- NOTE | 2020-01-06 10:51 | P.PN ---
Subjective Progress Note Date: 01/06/20 CHIEF COMPLAINT: Bowel obstruction HISTORY OF PRESENT ILLNESS: The patient is a 64-year-old female, with multiple abdominal surgeries who was admitted to the hospital secondary to small bowel obstruction. She is having outputs from her ostomy bag including flatus. Nasogastric tube improved from bilious. Her main complaint includes his neck drain and back pain. ROS: No reports of vomiting. No fevers or chills. No new chest pain. PHYSICAL EXAM: VITAL SIGNS: Reviewed. Afebrile CONSTITUTIONAL: Well developed and in no acute distress. EYES: Conjuctivae without sclera icterus. Extraocular movements grossly intact. HEAD, EARS, NOSE, THROAT: Head is atraumatic, normocephalic. Hears conv ersational speech. No nasal drainage. Nasogastric tube present NECK: Supple. No thyroidomegaly. RESPIRATORY: Non-labored respirations and equal bilateral excursions. CARDIOVASCULAR: Palpable 2+ radial pulses. ABDOMEN: Soft. No peritonitis. Ostomy bag with liquid stool and flatus. Nontender. MUSCULOSKELETAL: No gross deformity of the lower extremities noted. No clubbing. No cyanosis. SKIN: Good skin turgor. Well perfused. NEUROLOGIC: Cranial nerves II through XII grossly intact. No focal or lateralizing signs. PSYCH: Appropriate affect. Alert and oriented to person, place and time. CLINICAL LABS: White blood cell count up to 12.7 from 11.9. STUDIES: Abdominal x-ray independent review demonstrate diffuse gas pattern. No evidence of bowel obstruction. RADIOLOGY: Report reviewed regarding abdominal x-ray confirms ileus ASSESSMENT: 1. Small bowel obstruction now ileus 2. Descending ostomy creation 3. Suprapubic catheter 4. History of multiple abdominal surgeries 5. Leukocytosis PLAN: 1. May start trial of clear liquid diet however clamp NG tube. 2. Management of musculoskeletal pain per primary care team. 3. Recommend evaluation of leukocytosis for a urinary tract infection and in the interim start broad-spectrum antibiotics Objective - Vital Signs Vital signs: Vital Signs Temp 98.0 F 01/06/20 04:55 Pulse 85 01/06/20 04:55 Resp 17 01/06/20 04:55 BP 128/81 01/06/20 04:55 Pulse Ox 94 L 01/06/20 04:55 Intake & Output 01/05/20 01/06/20 01/06/20 18:59 06:59 18:59 Intake Total 300 Output Total 860 2250 Balance -860 -1950 Weight 83 kg 82.3 kg Intake: Intake, IV Titration 300 Amount Sodium Chloride 0.9% 1, 300 000 ml @ 100 mls/hr IV . Q10H [facility] Rx#:[id number] Output: Gastric Drainage 60 Urine 800 2250 - Labs CBC & Chem 7: 01/06/20 09:04 01/06/20 09:04 Labs: Abnormal Lab Results - Last 24 Hours (Table) 01/05/20 01/05/20 01/06/20 Range/Units 13:06 18:31 00:50 WBC (3.8-10.6) k/uL Neutrophils # (1.3-7.7) k/uL Sodium (137-145) mmol/L Creatinine (0.52-1.04) mg/dL Glucose (74-99) mg/dL POC Glucose (mg/dL) 129 H 123 H 132 H (75-99) mg/dL 01/06/20 01/06/20 01/06/20 Range/Units 06:12 09:04 09:04 WBC 12.7 H (3.8-10.6) k/uL Neutrophils # 10.1 H (1.3-7.7) k/uL Sodium 134 L (137-145) mmol/L Creatinine 0.38 L (0.52-1.04) mg/dL Glucose 141 H (74-99) mg/dL POC Glucose (mg/dL) 125 H (75-99) mg/dL Assessment and Plan (1) Peritoneal adhesions with obstruction Current Visit: Yes Status: Acute Code(s): K56.50 - INTESTNL ADHESIONS, UNSP TO PARTIAL VERSUS COMPLETE OBST SNOMED Code(s): 60268370 (2) Colostomy in place Current Visit: Yes Status: Acute Code(s): Z93.3 - COLOSTOMY STATUS SNOMED Code(s): 492806430 (3) Suprapubic catheter Current Visit: Yes Status: Acute Code(s): Z93.59 - OTHER CYSTOSTOMY STATUS SNOMED Code(s): 514267954 (4) Partial small bowel obstruction Current Visit: Yes Status: Acute Code(s): K56.600 - PARTIAL INTESTINAL OBSTRUCTION, UNSPECIFIED TO CAUSE SNOMED Code(s): 433901937 (5) Abdominal pain Current Visit: No Status: Acute Code(s): R10.9 - UNSPECIFIED ABDOMINAL PAIN SNOMED Code(s): 75927956 (6) Inadequate dietary intake of protein Current Visit: Yes Status: Acute Code(s): E63.9 - NUTRITIONAL DEFICIENCY, UNSPECIFIED SNOMED Code(s): 307379084 (7) Leukocytosis Current Visit: Yes Status: Acute Code(s): D72.829 - ELEVATED WHITE BLOOD CELL COUNT, UNSPECIFIED SNOMED Code(s): 686772759
[2020-01-06 11:35] LABS: Glucose,Whole Blood 120 mg/dL (75-99)
[2020-01-06] MEDS: PIPERACILLIN-TAZOBACTAM 3.375 GM in SODIUM CHLORIDE 0.9% 100 ML IVPB SCH ×2 (11:55→20:03)
[2020-01-06] MEDS: oxyCODONE-APAP 5-325MG 1 EACH TAB PO PRN ×2 (13:00→20:03)
[2020-01-06] MEDS: FAT EMULSION 20% 250 ML in EMPTY BAG 1 BAG IV SCH (14:41)
[2020-01-06] MEDS: KETOROLAC 30 MG/ML 1 ML VIAL IVP PRN ×2 (14:58→21:14)
[2020-01-06 16:59] LABS: Glucose,Whole Blood 124 mg/dL (75-99)
--- NOTE | 2020-01-06 21:06 | PN ---
PROGRESS NOTE DATE OF SERVICE: 01/06/2020 I am covering for Dr. Pressley. This 64-year-old woman was admitted with partial obstruction, ileus. She is being treated conservatively at this time. NG tube inserted. The most recent abdominal x-ray which was personally reviewed by me showed some fluid-filled intestines, mostly small bowels. The abdomen and pelvis CAT scan done a few days ago showed dilated small bowels indicating partial small-bowel and multi-septated cyst also in the rectal region also noted. Surgery is following the patient closely. The patient is started on clear liquids at this time. PAST MEDICAL HISTORY: Reviewed. REVIEW OF SYSTEMS: CARDIOVASCULAR: No angina or palpitations. RESPIRATORY: Diminished breath sounds. GI: As mentioned earlier. No dysuria or hematuria. NERVOUS No numbness or weakness. CURRENT MEDICATIONS: Reviewed and include; 1. TPN. 2. Dilaudid. 3. Toradol. 4. Reglan. 5. Narcan. 6. Zofran. 7. Percocet. 8. Protonix. 9. Amino acids. PHYSICAL EXAMINATION: Patient is alert and oriented times three. Pulse 82, blood pressure 160/84, respirations 16, temperature 98 degrees, pulse ox 94% on room air. HEENT: Conjunctivae normal. NECK: No jugular venous distention. CARDIOVASCULAR: S1, S2, muffled. RESPIRATORY: Breath sounds diminished at the bases. A few scattered rhonchi and crackles. ABDOMEN: Soft, mild diffuse distention, bowel sounds diminished. No guarding or rigidity. LEGS: No edema, no swelling. NERVOUS SYSTEM: Higher functions as mentioned earlier. Moves all four limbs. No focal motor or sensory deficits. LYMPHATICS: No lymph node in neck or axilla. SKIN: No rash. JOINTS: No active deforming. LAB STUDIES: WBC 12.7, hemoglobin 12.4, sodium 134. ASSESSMENT: 1. Small bowel obstruction versus ileus. 2. History of multiple abdominal surgeries. 3. Hyponatremia. 4. History of fibromyalgia. 5. Gastroesophageal reflux disease. 6. History of degenerative joint disease. 7. Hypothyroid. 8. History of possible epilepsy as a child. 9. History of head injury. 10.History of degenerative joint disease. 11.History of colostomy. 12.History of migraines. 13.History of vertigo. 14.History of glaucoma. 16.Clostridium difficile colitis. 17.History of back surgery. 18.Cholecystectomy. 19.History of depression. 20.FULL CODE. RECOMMENDATIONS AND DISCUSSION: This is a 64-year-old woman who presented with multiple medical problems. Will monitor the patient closely. Continue the current management and symptomatic treatment. Otherwise, closely follow Surgery. Empiric antibiotics initiated. Otherwise, once the patient is p.o., I will recommend initiate the home medications as well. Prognosis guarded. Further recommendations to follow. MMODL / IJN: [id number] / SONU
[2020-01-07 00:01] LABS: Glucose,Whole Blood 131 mg/dL (75-99)
[2020-01-07] MEDS: oxyCODONE-APAP 5-325MG 1 EACH TAB PO PRN ×3 (01:40→20:37)
[2020-01-07] MEDS: SODIUM CHLORIDE 0.9% 1,000 ML IV SCH ×3 (01:41→20:38)
[2020-01-07] MEDS: 1: MVI, ADULT NO.4 WITH VIT K 10 ML, TRACE (CONC-1ML/DOSE) 1 ML in AMINO ACID 4.25%-D10W IV SCH ×6 (01:42→15:45)
[2020-01-07] MEDS: KETOROLAC 30 MG/ML 1 ML VIAL IVP PRN ×4 (03:30→21:41)
[2020-01-07] MEDS: PIPERACILLIN-TAZOBACTAM 3.375 GM in SODIUM CHLORIDE 0.9% 100 ML IVPB SCH ×3 (03:31→20:37)
[2020-01-07 06:11] LABS: Glucose,Whole Blood 119 mg/dL (75-99)
[2020-01-07] MEDS: PANTOPRAZOLE 40 MG/10 ML VIAL IVP SCH (08:01)
[2020-01-07 09:52] LABS: Basophils % (A) 0 %; Eosinophils # (A) 0.1 k/uL (0-0.7); Eosinophils % (A) 1 %; HCT 38.8 % (34.0-46.0); HGB 12.2 gm/dL (11.4-16.0); Lymphocytes # (A) 1.6 k/uL (1.0-4.8); Lymphocytes % (A) 15 %; MCH 28.8 pg (25.0-35.0); MCHC 31.5 g/dL (31.0-37.0); MCV 91.5 fL (80.0-100.0); Mean Platelet Volume 8.3; Monocytes # (A) 0.7 k/uL (0-1.0); Monocytes % (A) 6 %; Neutrophils # (A) 7.9 k/uL (1.3-7.7); Neutrophils % (A) 76 %; Platelet Count 277 k/uL (150-450); RBC 4.24 m/uL (3.80-5.40); RDW 14.4 % (11.5-15.5); WBC 10.5 k/uL (3.8-10.6)
[2020-01-07 10:05] LABS: African American GFR (CKD) >90 (>60 ml/min/1.73 sqM); Anion Gap 9 mmol/L; Blood Urea Nitrogen 17 mg/dL (7-17); Calcium 9.5 mg/dL (8.4-10.2); Carbon Dioxide 19 mmol/L (22-30); Chloride 105 mmol/L (98-107); Glucose 151 mg/dL (74-99); Magnesium 2.1 mg/dL (1.6-2.3); Non-African American GFR(CKD) >90 (>60 ml/min/1.73 sqM); Phosphorus 4.1 mg/dL (2.5-4.5); Potassium 4.2 mmol/L (3.5-5.1); Sodium 133 mmol/L (137-145)
[2020-01-07 11:11] VITALS: BMI 32.1
--- NOTE | 2020-01-07 12:07 | P.PN ---
Subjective Progress Note Date: 01/07/20 CHIEF COMPLAINT: Bowel obstruction HISTORY OF PRESENT ILLNESS: The patient is a 64-year-old female, with multiple abdominal surgeries who was admitted to the hospital secondary to small bowel obstruction. She is tolerating liquids. No nausea with NG tube. Minimal output from NG tube and is non-bilious. No nausea. ROS: No reports of vomiting. No fevers or chills. No new chest pain. PHYSICAL EXAM: VITAL SIGNS: Reviewed. T max 99.8 CONSTITUTIONAL: Well developed and in no acute distress. EYES: Conjuctivae without sclera icterus. Extraocular movements grossly intact. HEAD, EARS, NOSE, THROAT: Head is atraumatic, normocephalic. Hears conversational speech. No nasal drainage. Nasogastric tube removed by me at bedside. NECK: Supple. No thyroidomegaly. RESPIRATORY: Non-labored respirations and equal bilateral excursions. CARDIOVASCULAR: Palpable 2+ radial pulses. ABDOMEN: Soft. No peritonitis. Nontender. Ostomay, pink patent and viable with stool and flatus MUSCULOSKELETAL: No gross deformity of the lower extremities noted. No clubbing. No cyanosis. SKIN: Good skin turgor. Well perfused. NEUROLOGIC: Cranial nerves II through XII grossly intact. No focal or lateraliz ing signs. PSYCH: Appropriate affect. Alert and oriented to person, place and time. CLINICAL LABS: White blood cell count up to 12.7 from 11.9, now 10.5. ASSESSMENT: 1. Small bowel obstruction now ileus 2. Descending ostomy creation 3. Suprapubic catheter 4. History of multiple abdominal surgeries 5. Leukocytosis PLAN: 1. NGT discontinued at bedside 2. Continue clears 3. Slow advancement of diet. Objective - Vital Signs Vital signs: Vital Signs Temp 98.2 F 01/07/20 07:00 Pulse 78 01/07/20 07:00 Resp 16 01/07/20 07:00 BP 144/71 01/07/20 07:00 Pulse Ox 95 01/07/20 07:00 Intake & Output 01/06/20 01/07/20 01/07/20 18:59 06:59 18:59 Intake Total 1800 0 Output Total 75 1600 600 Balance 1725 -1600 -600 Weight 82.2 kg 82.2 kg Intake: IV 800 Sodium Chloride 0.9% 1, 800 000 ml @ 100 mls/hr IV . Q10H [facility] Rx#:[id number] Intake, IV Titration 1000 0 Amount Amino Acid 4.25%-D10w+ 1000 Lytes*E* 1,000 ml @ 70 mls/hr IV .BY DURATION [facility] Rx#:[id number] Piperacillin-Tazobactam 3 0 .375 gm In Sodium Chloride 0.9% 100 ml @ 25 mls/hr IVPB Q8H [facility] Rx#: [id number] Output: Gastric Drainage 75 Urine 1600 600 - Labs CBC & Chem 7: 01/07/20 08:49 01/07/20 08:49 Labs: Abnormal Lab Results - Last 24 Hours (Table) 01/06/20 01/06/20 01/07/20 Range/Units 09:04 16:57 00:00 Neutrophils # (1.3-7.7) k/uL Sodium (137-145) mmol/L Carbon Dioxide (22-30) mmol/L Glucose (74-99) mg/dL POC Glucose (mg/dL) 124 H 131 H (75-99) mg/dL Uric Acid 3.1 L (3.7-7.4) mg/dL 01/07/20 01/07/20 01/07/20 Range/Units 06:09 08:49 08:49 Neutrophils # 7.9 H (1.3-7.7) k/uL Sodium 133 L (137-145) mmol/L Carbon Dioxide 19 L (22-30) mmol/L Glucose 151 H (74-99) mg/dL POC Glucose (mg/dL) 119 H (75-99) mg/dL Uric Acid (3.7-7.4) mg/dL Assessment and Plan (1) Peritoneal adhesions with obstruction Current Visit: Yes Status: Acute Code(s): K56.50 - INTESTNL ADHESIONS, UNSP TO PARTIAL VERSUS COMPLETE OBST SNOMED Code(s): 43750033 (2) Colostomy in place Current Visit: Yes Status: Acute Code(s): Z93.3 - COLOSTOMY STATUS SNOMED Code(s): 362659379 (3) Suprapubic catheter Current Visit: Yes Status: Acute Code(s): Z93.59 - OTHER CYSTOSTOMY STATUS SNOMED Code(s): 245984589 (4) Partial small bowel obstruction Current Visit: Yes Status: Acute Code(s): K56.600 - PARTIAL INTESTINAL OBSTRUCTION, UNSPECIFIED TO CAUSE SNOMED Code(s): 427417541 (5) Abdominal pain Current Visit: No Status: Acute Code(s): R10.9 - UNSPECIFIED ABDOMINAL PAIN SNOMED Code(s): 30611622 (6) Inadequate dietary intake of protein Current Visit: Yes Status: Acute Code(s): E63.9 - NUTRITIONAL DEFICIENCY, UNSPECIFIED SNOMED Code(s): 662668543 (7) Leukocytosis Current Visit: Yes Status: Acute Code(s): D72.829 - ELEVATED WHITE BLOOD CELL COUNT, UNSPECIFIED SNOMED Code(s): 337309144
[2020-01-07] MEDS: FAT EMULSION 20% 250 ML in EMPTY BAG 1 BAG IV SCH (14:56)
[2020-01-07] MEDS: GABAPENTIN 400 MG CAP PO SCH ×2 (15:46→20:37)
[2020-01-07 18:31] LABS: Glucose,Whole Blood 90 mg/dL (75-99)
[2020-01-07] MEDS: OXYBUTYNIN 10 MG TAB.ER.24 PO SCH (20:37)
[2020-01-07] MEDS ORDERED: LATANOPROST 0.005% OPHTH DROPS 2.5 ML BTL BOTH EYES SCH (21:00)
[2020-01-08 00:04] LABS: Glucose,Whole Blood 111 mg/dL (75-99)
--- NOTE | 2020-01-08 01:15 | PN ---
PROGRESS NOTE DATE OF SERVICE: 01/07/2020 I am covering for Dr. Pressley. This 64-year-old woman admitted with acute partial small-bowel obstruction, being closely monitored. The patient had multiple abdominal surgeries. Conservative line of treatment is being recommended. NG tube has been removed. The CT scan showed multiple findings including multiseptated cystic appearing mass in the rectal region. PAST MEDICAL HISTORY: Reviewed. REVIEW OF SYSTEMS: CARDIOVASCULAR SYSTEM: No angina. RESPIRATORY SYSTEM: As mentioned earlier. GI: As mentioned earlier. : No dysuria. NERVOUS SYSTEM: No numbness or weakness. CURRENT MEDICATIONS: Current medications are reviewed and include: 1. Wellbutrin XL. 2. TPN. 3. Dilaudid. 4. Toradol. 5. Xalatan. 6. Synthroid. 7. Reglan. 8. Narcan. 9. Zofran. 10.Ditropan. 11.Percocet. 12.Protonix. The doses are reviewed. PHYSICAL EXAMINATION: Patient is alert and oriented x3. Pulse is 87, blood pressure 136/80, respiration 18, temperature 98.2, pulse ox 96% on room air HEENT: Conjunctivae normal. NECK: No jugular venous distention. CARDIOVASCULAR: S1, S2 muffled. RESPIRATORY: Breath sounds diminished at the bases. A few rhonchi. No crackles. ABDOMEN: Soft, nontender. LEGS: No edema. No swelling. NERVOUS SYSTEM: No focal deficits. LABS: Labs are at this time shows: CBC within normal limits. Sodium 133, potassium 4.2. ASSESSMENT: 1. Small bowel obstruction versus ileus on conservative line of treatment. 2. History of multiple abdominal surgeries. 3. Abdominal CT scan showed dilated small bowel and multiseptated cystic appearing mass lesion in the rectal region. 4. Hyponatremia. 5. History of fibromyalgia. 6. History of gastroesophageal reflux disease. 7. History of degenerative joint disease. 8. Hypothyroidism. 9. History of epilepsy as a child. 10.History of head injury. 11.History of degenerative joint disease. 12.History of colostomy. 13.History of migraine. 14.History of vertigo. 15.History of glaucoma. 16.History of Clostridium difficile colitis. 17.History of back surgery. 18.History of cholecystectomy. 19.History of depression. 20.FULL CODE. RECOMMENDATIONS AND DISCUSSION: Recommend to continue current medications, continue with monitoring and symptomatic treatment. Otherwise, medication reconciliation done. Resume the patient's home medication including Synthroid. Conservative line of management. Repeat labs and Dr. Pressley will follow. Follow closely with Surgery. Further recommendations to follow. Follow the abnormal CT scans as well. The patient will require further evaluation and scopes. JANET / MATY: [id number] /
[2020-01-08] MEDS: oxyCODONE-APAP 5-325MG 1 EACH TAB PO PRN (02:34)
[2020-01-08] MEDS: KETOROLAC 30 MG/ML 1 ML VIAL IVP PRN ×2 (04:48→12:18)
[2020-01-08] MEDS: PIPERACILLIN-TAZOBACTAM 3.375 GM in SODIUM CHLORIDE 0.9% 100 ML IVPB SCH ×2 (04:50→12:19)
[2020-01-08] MEDS: 1: MVI, ADULT NO.4 WITH VIT K 10 ML, TRACE (CONC-1ML/DOSE) 1 ML in AMINO ACID 4.25%-D10W IV SCH ×3 (06:01)
[2020-01-08 06:20] LABS: Glucose,Whole Blood 96 mg/dL (75-99)
[2020-01-08] MEDS ORDERED: LEVOTHYROXINE 100 MCG TAB PO SCH (06:30)
--- NOTE | 2020-01-08 07:52 | P.PN ---
Subjective Principal diagnosis: This is a continue progress on a 64-year-old white female admitted for partial small bowel obstruction and ileus. No flatus is noted. No significant nausea. NG tube suction is continued. Appreciate surgical consultation. The patient states no flatus as of yet. Appreciate Surgical Input. Slowly advance diet. Anticipate DC in the next 24-48 hours if continued trajectory of improvement Objective - Vital Signs Vital signs: Vital Signs Temp 98.4 F 01/08/20 00:10 Pulse 79 01/08/20 00:10 Resp 20 01/08/20 00:10 BP 119/73 01/08/20 00:10 Pulse Ox 97 01/08/20 00:10 Intake & Output 01/07/20 01/08/20 01/08/20 18:59 06:59 18:59 Intake Total 1000 100 Output Total 975 2150 Balance -2049 Weight 82.2 kg 85 kg Intake: Intake, IV Titration 1000 100 Amount Amino Acid 4.25%-D10w+ 1000 Lytes*E* 1,000 ml @ 70 mls/hr IV .BY DURATION ANA MARÍA Rx#:[id number] Piperacillin-Tazobactam 3 100 .375 gm In Sodium Chloride 0.9% 100 ml @ 25 mls/hr IVPB Q8H ANA MARÍA Rx#: [id number] Output: Urine 975 2150 Other: Voiding Method Indwelling Catheter - Constitutional General appearance: Present: average body habitus - EENT Eyes: Absent: abnormal pupil - Neck Neck: Absent: lymphadenopathy - Respiratory Respiratory: bilateral: CTA - Cardiovascular Rhythm: regular Heart sounds: normal: S1, S2 Abnormal Heart Sounds: Absent: S3 Gallop - Gastrointestinal General gastrointestinal: Present: soft. Absent: tenderness - Neurologic Neurologic: Present: CNII-XII intact - Labs CBC & Chem 7: 01/07/20 08:49 01/07/20 08:49 Labs: Abnormal Lab Results - Last 24 Hours (Table) 01/07/20 01/07/20 01/07/20 Range/Units 08:49 08:49 23:53 Neutrophils # 7.9 H (1.3-7.7) k/uL Sodium 133 L (137-145) mmol/L Carbon Dioxide 19 L (22-30) mmol/L Glucose 151 H (74-99) mg/dL POC Glucose (mg/dL) 111 H (75-99) mg/dL Assessment and Plan (1) Partial small bowel obstruction Current Visit: Yes Status: Acute Code(s): K56.600 - PARTIAL INTESTINAL OBSTRUCTION, UNSPECIFIED TO CAUSE SNOMED Code(s): 438465534 (2) Abdominal pain Current Visit: No Status: Acute Code(s): R10.9 - UNSPECIFIED ABDOMINAL PAIN SNOMED Code(s): 27460917 (3) Atonic urinary bladder Current Visit: No Status: Acute Code(s): N31.2 - FLACCID NEUROPATHIC BLADDER, NOT ELSEWHERE CLASSIFIED SNOMED Code(s): 935162361 (4) GERD (gastroesophageal reflux disease) Current Visit: No Status: Acute Code(s): K21.9 - GASTRO-ESOPHAGEAL REFLUX DISEASE WITHOUT ESOPHAGITIS SNOMED Code(s): 630400537 (5) History of creation of ostomy Current Visit: No Status: Acute Code(s): Z93.9 - ARTIFICIAL OPENING STATUS, UNSPECIFIED SNOMED Code(s): 656929372 (6) Ileus Current Visit: No Status: Acute Code(s): K56.7 - ILEUS, UNSPECIFIED SNOMED Code(s): 027067468 (7) Major depressive disorder, recurrent severe without psychotic features Current Visit: No Status: Acute Priority: High Code(s): F33.2 - MAJOR DEPRESSV DISORDER, RECURRENT SEVERE W/O PSYCH FEATURES SNOMED Code(s): 43781297 (8) Nausea and vomiting Current Visit: No Status: Acute Code(s): R11.2 - NAUSEA WITH VOMITING, UNSPECIFIED SNOMED Code(s): 30790980 (9) Depression Current Visit: No Status: Chronic Code(s): F32.9 - MAJOR DEPRESSIVE DISORDER, SINGLE EPISODE, UNSPECIFIED SNOMED Code(s): 53405007 Plan: We will continue to follow appropriately. NG tube suction removed yesterday Prognosis is guarded secondary to her multiple comorbidities. again, anticipate discharge in a.m.
[2020-01-08] MEDS: GABAPENTIN 400 MG CAP PO SCH (08:01)
[2020-01-08] MEDS: OXYBUTYNIN 10 MG TAB.ER.24 PO SCH (08:01)
[2020-01-08] MEDS: PANTOPRAZOLE 40 MG/10 ML VIAL IVP SCH (08:01)
[2020-01-08] MEDS: HYDROmorphone 0.5 MG/0.5 ML SYRINGE IVP PRN (08:09)
[2020-01-08 08:19] VITALS: BP 117/72; PULSE 74; RESP 17; TEMP 97.8
[2020-01-08] MEDS ORDERED: buPROPion XL 300 MG TAB.ER.24H PO SCH (09:00)
[2020-01-08] MEDS ORDERED: SENNOSIDES 8.6 MG TAB PO SCH (09:00)
[2020-01-08 09:52] LABS: Basophils % (A) 0 %; Eosinophils # (A) 0.3 k/uL (0-0.7); Eosinophils % (A) 2 %; HCT 36.4 % (34.0-46.0); Lymphocytes % (A) 19 %; MCH 30.4 pg (25.0-35.0); Mean Platelet Volume 8.3; Monocytes # (A) 0.7 k/uL (0-1.0); Monocytes % (A) 6 %; Neutrophils # (A) 7.4 k/uL (1.3-7.7); Neutrophils % (A) 71 %; Platelet Count 319 k/uL (150-450); RBC 3.96 m/uL (3.80-5.40); RDW 14.3 % (11.5-15.5); WBC 10.4 k/uL (3.8-10.6)
[2020-01-08 09:57] LABS: African American GFR (CKD) >90 (>60 ml/min/1.73 sqM); Anion Gap 10 mmol/L; Blood Urea Nitrogen 20 mg/dL (7-17); Calcium 9.7 mg/dL (8.4-10.2); Carbon Dioxide 21 mmol/L (22-30); Chloride 106 mmol/L (98-107); Glucose 116 mg/dL (74-99); Magnesium 1.9 mg/dL (1.6-2.3); Non-African American GFR(CKD) >90 (>60 ml/min/1.73 sqM); Phosphorus 4.6 mg/dL (2.5-4.5); Potassium 4.4 mmol/L (3.5-5.1); Sodium 137 mmol/L (137-145)
[2020-01-08] MEDS: SODIUM CHLORIDE 0.9% 1,000 ML IV SCH (10:33)
--- NOTE | 2020-01-08 11:27 | P.PN ---
Progress Note - Text Progress Note Date: 01/08/20 The patient has had stooling in her colostomy bag. She is tolerating clear liquids. On exam vital signs are stable. Abdomen soft. Colostomy has some soft stool within it. Resolving ileus. Patient will have her diet advanced to full liquids. Meatus be discharged home tomorrow.
[2020-01-08 11:53] LABS: Glucose,Whole Blood 84 mg/dL (75-99)
--- NOTE | 2020-01-08 13:00 | P.DS ---
Providers Date of admission: 01/01/20 17:12 Attending physician: Jaskaran Pressley Consults: 01/01/20 17:11 Consult Physician Urgent Consulting Provider: Sid Brown Consult Reason/Comments: Bowel obstruction Do you want consulting provider notified?: Yes Primary care physician: Jaskaran Pressley - Discharge Diagnosis(es) (1) Partial small bowel obstruction Current Visit: Yes Status: Acute (2) Abdominal pain Current Visit: No Status: Acute (3) Atonic urinary bladder Current Visit: No Status: Acute (4) GERD (gastroesophageal reflux disease) Current Visit: No Status: Acute (5) History of creation of ostomy Current Visit: No Status: Acute (6) Ileus Current Visit: No Status: Acute (7) Major depressive disorder, recurrent severe without psychotic features Current Visit: No Status: Acute Priority: High (8) Nausea and vomiting Current Visit: No Status: Acute (9) Depression Current Visit: No Status: Chronic Hospital Course: This is discharge summary 64-year-old white female centimeter for partial small bowel obstruction with history of multiple surgeries and bladder atony. The patient was stabilized after NG tube placement Reglan and appropriate protocol. Surgery was consulted and slowly she was advanced to clear liquid diet and she is to follow-up with me in about 2 days. She is tolerating diet without difficulty no fever and abdomen is now soft. Surgical consultation has released her for discharge. Patient Condition at Discharge: Fair Plan - Discharge Summary New Discharge Prescriptions: No Action Omeprazole [PriLOSEC] 20 mg PO AC-BID 15 Days capsule. Gabapentin 800 mg PO TID Oxybutynin Chloride [Ditropan] 10 mg PO BID Ibuprofen [Motrin] 800 mg PO BID Levothyroxine Sodium [Synthroid] 100 mcg PO DAILY oxyCODONE-APAP 5-325MG [Percocet 5-325 mg] 1 tab PO HS buPROPion HCL [Wellbutrin XL] 300 mg PO DAILY Docusate [Colace] 100 mg PO BID Cholecalciferol (Vitamin D3) [Vitamin D3] 2,000 unit PO HS Multivitamins, Thera [Multivitamin (formulary)] 1 tab PO DAILY Vitamin B Complex 1 cap PO DAILY Sulfamethox-Tmp 800-160Mg [Bactrim DS 800-160 mg] 1 tab PO DAILY PRN PRN Reason: UTI SYMPTOMS Fluorometholone 0.1% Ophth Kathy [Fml] 1 drops BOTH EYES QID PRN PRN Reason: eye pressure Sennosides [Ex-Lax Maximum Strength] 75 mg PO DAILY Bimatoprost [Lumigan .01% Ophth Soln] 1 drop BOTH EYES HS Nystatin 100,000 Unit/ml Susp [Mycostatin Oral Susp] 500,000 unit PO QID PRN #200 ml PRN Reason: THRUSH Cefuroxime Axetil [Ceftin] 500 mg PO BID #10 tab Meclizine [Antivert] 25 mg PO BID Fluticasone Nasal [place] [Flonase Nasal [place]] 1 - 2 spr EA NOSTRIL DAILY Discharge Medication List Omeprazole [PriLOSEC] 20 mg PO AC-BID 15 Days capsule. 02/13/15 [Rx] Gabapentin 800 mg PO TID 09/04/15 [History] Oxybutynin Chloride [Ditropan] 10 mg PO BID 11/28/15 [History] Ibuprofen [Motrin] 800 mg PO BID 06/30/16 [History] Levothyroxine Sodium [Synthroid] 100 mcg PO DAILY 06/30/16 [History] oxyCODONE-APAP 5-325MG [Percocet 5-325 mg] 1 tab PO HS 06/30/16 [History] buPROPion HCL [Wellbutrin XL] 300 mg PO DAILY 02/04/17 [History] Cholecalciferol (Vitamin D3) [Vitamin D3] 2,000 unit PO HS 06/16/18 [History] Docusate [Colace] 100 mg PO BID 06/16/18 [History] Multivitamins, Thera [Multivitamin (formulary)] 1 tab PO DAILY 01/23/19 [History] Vitamin B Complex 1 cap PO DAILY 01/23/19 [History] Fluorometholone 0.1% Ophth Kathy [Fml] 1 drops BOTH EYES QID PRN 05/23/19 [History] Sulfamethox-Tmp 800-160Mg [Bactrim DS 800-160 mg] 1 tab PO DAILY PRN 05/23/19 [History] Bimatoprost [Lumigan .01% Ophth Soln] 1 drop BOTH EYES HS 09/09/19 [History] Sennosides [Ex-Lax Maximum Strength] 75 mg PO DAILY 09/09/19 [History] Cefuroxime Axetil [Ceftin] 500 mg PO BID #10 tab 09/14/19 [Rx] Nystatin 100,000 Unit/ml Susp [Mycostatin Oral Susp] 500,000 unit PO QID PRN #200 ml 09/14/19 [Rx] Fluticasone Nasal [place] [Flonase Nasal [place]] 1 - 2 spr EA NOSTRIL DAILY 01/01/20 [History] Meclizine [Antivert] 25 mg PO BID 01/01/20 [History] Follow up Appointment(s)/Referral(s): Jaskaran Pressley MD [Primary Care Provider] - 1-2 days Patient Instructions/Handouts: Bowel Obstruction (DC), Ileus (DC) Discharge Disposition: HOME SELF-CARE
[2020-01-08] MEDS: FAT EMULSION 20% 250 ML in EMPTY BAG 1 BAG IV SCH (13:54)
[2020-01-08] MEDS ORDERED: 1: PARENTERAL ELECTROLYTES 20 ML, MVI, ADULT NO.4 WITH VIT K 10 ML, TRACE (CONC-1ML/DOSE IV SCH ×4 (20:00)
== END 2020-01-08 15:46 | disposition home or self-care (01) | DRG 389 ==
LOC: EC 14:43 → 5NMEDONC 17:12 → 4SSUR 20:27
PROVIDERS: ADMIT Family Medicine; ATTEND Family Medicine
PROC: 0D9670Z Drainage of Stomach with Drainage Device, Via Natural or Artificial Opening (ICD-10-PCS; principal; 2020-01-01)
PROC: 3E0336Z Introduction of Nutritional Substance into Peripheral Vein, Percutaneous Approach (ICD-10-PCS; 2020-01-04 17:35)
DX: K56.51 Intestinal adhesions [bands], with partial obstruction (principal); E87.1 Hypo-osmolality and hyponatremia; F33.9 Major depressive disorder, recurrent, unspecified; K56.7 Ileus, unspecified; N31.2 Flaccid neuropathic bladder, not elsewhere classified; Z11.59 Encounter for screening for other viral diseases; E03.9 Hypothyroidism, unspecified; E63.9 Nutritional deficiency, unspecified; G40.909 Epilepsy, unspecified, not intractable, without status epilepticus; G89.4 Chronic pain syndrome; K21.9 Gastro-esophageal reflux disease without esophagitis; M19.90 Unspecified osteoarthritis, unspecified site; M79.7 Fibromyalgia; G43.909 Migraine, unspecified, not intractable, without status migrainosus; G57.93 Unspecified mononeuropathy of bilateral lower limbs; H40.9 Unspecified glaucoma; K57.90 Diverticulosis of intestine, part unspecified, without perforation or abscess without bleeding; M50.30 Other cervical disc degeneration, unspecified cervical region; M51.34 Other intervertebral disc degeneration, thoracic region; M51.36 Other intervertebral disc degeneration, lumbar region; Z79.890 Hormone replacement therapy; Z79.899 Other long term (current) drug therapy; Z88.5 Allergy status to narcotic agent; Z88.8 Allergy status to other drugs, medicaments and biological substances; Z88.1 Allergy status to other antibiotic agents; Z91.040 Latex allergy status; Z96.651 Presence of right artificial knee joint; Z93.3 Colostomy status; Z90.710 Acquired absence of both cervix and uterus; Z90.49 Acquired absence of other specified parts of digestive tract; Z87.828 Personal history of other (healed) physical injury and trauma; Z86.19 Personal history of other infectious and parasitic diseases; Z98.1 Arthrodesis status; Z96.649 Presence of unspecified artificial hip joint; Z98.42 Cataract extraction status, left eye; Z98.41 Cataract extraction status, right eye; Z87.01 Personal history of pneumonia (recurrent); Z93.50 Unspecified cystostomy status; Z80.3 Family history of malignant neoplasm of breast; Z82.0 Family history of epilepsy and other diseases of the nervous system; Z80.9 Family history of malignant neoplasm, unspecified
CPT/HCPCS: 36410; 36415; 74019; 74177; 76937; 80048; 80053; 81001; 82150; 82330; 83605; 83690; 83735; 84100; 84478; 84550; 85025; 85027; 96374; 96375; 96376; 99285

== ENCOUNTER 2020-09-04 20:07 | Emergency (ER) | payer MEDICARE, OTHER ==
[2020-09-04 20:33] VITALS: RESP 18; TEMP 98.6
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
[2020-09-04 22:01] VITALS: BP 129/94; PULSE 62
== END 2020-09-04 22:02 | disposition home or self-care (01) ==
LOC: EC 20:07
DX: T83.028A Displacement of other urinary catheter, initial encounter (principal); F32.9 Major depressive disorder, single episode, unspecified; K21.9 Gastro-esophageal reflux disease without esophagitis; M19.90 Unspecified osteoarthritis, unspecified site; M79.7 Fibromyalgia; E07.9 Disorder of thyroid, unspecified; Z93.3 Colostomy status; Z95.5 Presence of coronary angioplasty implant and graft; Z90.710 Acquired absence of both cervix and uterus; Z90.09 Acquired absence of other part of head and neck
CPT/HCPCS: 51702; 99283

== ENCOUNTER 2021-02-10 23:41 | Inpatient (IN) | payer MEDICARE, OTHER ==
[2021-02-10] MEDS ORDERED: SODIUM CHLORIDE 0.9% 1,000 ML IV STA (23:58)
[2021-02-10] MEDS ORDERED: ONDANSETRON 4 MG/2 ML VIAL IVP STA (23:58)
[2021-02-10] MEDS ORDERED: SODIUM CHLORIDE 0.9% 500 ML 500 ML IV STA (23:58)
[2021-02-10] MEDS ORDERED: HYDROmorphone 0.5 MG/0.5 ML SYRINGE IVP STA (23:59)
--- NOTE | 2021-02-11 00:02 | ED ---
General Adult HPI - General Stated complaint: Abd Pain, Vomiting Time Seen by Provider: 02/10/21 23:51 - History of Present Illness Initial comments: 65-year-old female presents emergency Department with a chief complaint abdominal pain nausea vomiting. Patient reports she has been menstruating abdominal pain for about one week but has been progressively getting worse over the last 2-3 days. States she began having nausea and multiple episodes of no nbilious and nonbloody vomiting since yesterday. States most the pain is located in the epigastric abdominal region without any radiation. States the pain is sharp in nature. She denies any back pain chest pain shortness of breath. Patient has a chronic Malin catheter. She denies any fevers or chills chest pain or shortness of breath. Denies any back or flank pain. - Related Data Home Medications Medication Instructions Recorded Confirmed Gabapentin 800 mg PO TID 09/04/15 01/01/20 Oxybutynin Chloride [Ditropan] 10 mg PO BID 11/28/15 01/01/20 Ibuprofen [Motrin] 800 mg PO BID 06/30/16 01/01/20 Levothyroxine Sodium [Synthroid] 100 mcg PO DAILY 06/30/16 01/01/20 oxyCODONE-APAP 5-325MG [Percocet 1 tab PO HS 06/30/16 01/01/20 5-325 mg] buPROPion HCL [Wellbutrin XL] 300 mg PO DAILY 02/04/17 01/01/20 Cholecalciferol (Vitamin D3) 2,000 unit PO HS 06/16/18 01/01/20 [Vitamin D3] Docusate [Colace] 100 mg PO BID 06/16/18 01/01/20 Multivitamins, Thera [Multivitamin 1 tab PO DAILY 01/23/19 01/01/20 (formulary)] Vitamin B Complex 1 cap PO DAILY 01/23/19 01/01/20 Fluorometholone 0.1% Ophth Kathy 1 drops BOTH EYES QID PRN 05/23/19 01/01/20 [Fml] Sulfamethox-Tmp 800-160Mg [Bactrim 1 tab PO DAILY PRN 05/23/19 01/01/20 DS 800-160 mg] Bimatoprost [Lumigan .01% Ophth 1 drop BOTH EYES HS 09/09/19 01/01/20 Soln] Sennosides [Ex-Lax Maximum 75 mg PO DAILY 09/09/19 01/01/20 Strength] Fluticasone Nasal [place] [Flonase 1 - 2 spr EA NOSTRIL DAILY 01/01/20 01/01/20 Nasal [place]] Meclizine [Antivert] 25 mg PO BID 01/01/20 01/01/20 Previous Rx's Medication Instructions Recorded Omeprazole [PriLOSEC] 20 mg PO AC-BID 15 Days capsule. 02/13/15 Cefuroxime Axetil [Ceftin] 500 mg PO BID #10 tab 09/14/19 Nystatin 100,000 Unit/ml Susp 500,000 unit PO QID PRN #200 ml 09/14/19 [Mycostatin Oral Susp] Allergies Allergy/AdvReac Type Severity Reaction Status Date / Time adhesive tape Allergy Rash/Hives Verified 09/04/20 20:33 ciprofloxacin [From Cipro] Allergy Unknown Verified 09/04/20 20:33 colesevelam [From WelChol] Allergy Rash/Hives Verified 09/04/20 20:33 colesevelam HCl Allergy Rash/Hives Verified 09/04/20 20:33 [From WelChol] lamivudine Allergy Rash/Hives Verified 09/04/20 20:33 latex Allergy Dyspnea Verified 09/04/20 20:33 levofloxacin [From Levaquin] Allergy Rash/Hives/ Verified 09/04/20 20:33 Fever prochlorperazine edisylate Allergy Anaphylaxis Verified 09/04/20 20:33 [From Compazine] prochlorperazine maleate Allergy Anaphylaxis Verified 09/04/20 20:33 [From Compazine] vancomycin Allergy Rash/Hives/ Verified 09/04/20 20:33 Fever zidovudine Allergy Rash/Hives Verified 09/04/20 20:33 nitrofurantoin AdvReac Nausea & Verified 09/04/20 20:33 [From Macrobid] Vomiting/Dizziness nitroglycerin AdvReac cervical Verified 09/04/20 20:33 fusion spasms tramadol HCl [From Ultram] AdvReac WEAKNESS, Verified 09/04/20 20:33 DIZZYNESS zolpidem [From Ambien] AdvReac SLEEP Verified 09/04/20 20:33 WALKING COMBID Allergy Rash/Hives Uncoded 09/09/19 04:35 Review of Systems ROS Statement: Those systems with pertinent positive or pertinent negative responses have been documented in the HPI. ROS Other: All systems not noted in ROS Statement are negative. Past Medical History Past Medical History: Chest Pain / Angina, Eye Disorder, Fibromyalgia, GERD/Reflux, Memory Impairment, Osteoarthritis (OA), Pneumonia, Thyroid Disorder Additional Past Medical History / Comment(s): . 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 MINOR, OCC Short term memory loss. DDD Cervical, Thoracic, Lumbar levels. Chronic Pain syndrome in Back. Proctosigmoiditis w/ Colostomy. Diverticulosis. Neuropathy kalyani legs/feet. Migraines. Veritgo. Glaucoma kalyani. KEISHA-BARRE, septic shock, History of Any Multi-Drug Resistant Organisms: C-DIFF Date of last positivie culture/infection: 2010 MDRO Source:: stool Past Surgical History: Adenoidectomy, Back Surgery, Bladder Surgery, Bowel Resection, Breast Surgery, Cholecystectomy, Heart Catheterization, Hysterectomy, Joint Replacement, Tonsillectomy Additional Past Surgical History / Comment(s): 12/06/13 Cardiac cath-normal. cervical Fusion, Back surgury-rods/screws/cage, partial bowel resection with colostomy, total RIGHT KNEE REPLACEMENT, L knee arthroscopy, bladder suspension, cataracts breast augmentation. hip replacedment knee replacement Past Anesthesia/Blood Transfusion Reactions: Family History of Problems w/ Anesthesia, Postoperative Nausea & Vomiting (PONV) Additional Past Anesthesia/Blood Transfusion Reaction / Comment(s): FAMILY HAS PONV. Past Psychological History: Depression Smoking Status: Never smoker Past Alcohol Use History: None Reported Past Drug Use History: None Reported - Past Family History Father Family Medical History: Cancer, Musculoskeletal Disorder, Neurologic Disorder Additional Family Medical History / Comment(s): Father at 77 yrs. He had parkinson's dx. Mother Family Medical History: Cancer Additional Family Medical History / Comment(s): Mother had breast cancer. She is alive and 82 yrs old. General Exam Limitations: no limitations General appearance: alert, in no apparent distress Head exam: Present: atraumatic, normocephalic, normal inspection Eye exam: Present: normal appearance, PERRL, EOMI Pupils: Present: normal accommodation ENT exam: Present: normal exam, normal oropharynx, mucous membranes moist Neck exam: Present: normal inspection, full ROM. Absent: tenderness, lymphadenopathy Respiratory exam: Present: normal lung sounds bilaterally. Absent: respiratory distress, wheezes, rales, rhonchi, stridor Cardiovascular Exam: Present: regular rate, normal rhythm, normal heart sounds. Absent: systolic murmur GI/Abdominal exam: Present: soft, tenderness (Epigastric abdominal tenderness). Absent: distended, guarding, rebound, rigid Extremities exam: Present: normal inspection, full ROM, normal capillary refill. Absent: tenderness, pedal edema, joint swelling Back exam: Present: normal inspection, full ROM. Absent: tenderness, CVA tenderness (R), CVA tenderness (L), muscle spasm, paraspinal tenderness, vertebral tenderness Neurological exam: Present: alert, oriented X3 Psychiatric exam: Present: normal affect, normal mood Skin exam: Present: warm, dry, intact, normal color Course Vital Signs 02/11/21 02/11/21 00:04 01:30 Temperature 98.3 F Pulse Rate 101 H 99 Respiratory 20 20 Rate Blood Pressure 97/52 108/54 O2 Sat by Pulse 91 L 95 Oximetry EKG Findings - EKG Comments: EKG Findings:: Sinus tachycardia. Ventricular rate 102, UT 156, QRS 80, QTC 464. Medical Decision Making - Medical Decision Making 65-year-old female presents emergency Department with a chief complaint abdomi nal pain nausea vomiting. On physical examination, epigastric abdominal tenderness. Patient takes laxatives and daily basis. She is not passing gas but did have a bowel movement earlier today. During ED stay, patient did become nauseous. NG tube will be placed. CBC showed leukocytosis of 17,000. Patient does appear to clinically dry. She was given 2.5 L of IV fluids. She was also given 1 g Rocephin. Lactic acid within normal limits. She has a chronic Malin catheter. We will continue this. CT of abdomen and pelvis reveals mechanical bowel obstruction with no transition point. Symptomatic relief. Patient will be admitted to medicine with surgery consult. Case discussed with - Lab Data Result diagrams: 02/11/21 00:25 02/11/21 00:25 Lab Results 02/11/21 02/11/21 02/11/21 Range/Units 00:25 00:25 00:25 WBC 17.2 H (3.8-10.6) k/uL RBC 4.76 (3.80-5.40) m/uL Hgb 14.6 (11.4-16.0) gm/dL Hct 43.6 (34.0-46.0) % MCV 91.6 (80.0-100.0) fL MCH 30.7 (25.0-35.0) pg MCHC 33.5 (31.0-37.0) g/dL RDW 15.9 H (11.5-15.5) % Plt Count 319 (150-450) k/uL MPV 8.4 Neutrophils % 77 % Lymphocytes % 17 % Monocytes % 4 % Eosinophils % 1 % Basophils % 0 % Neutrophils # 13.2 H (1.3-7.7) k/uL Lymphocytes # 3.0 (1.0-4.8) k/uL Monocytes # 0.7 (0-1.0) k/uL Eosinophils # 0.1 (0-0.7) k/uL Basophils # 0.1 (0-0.2) k/uL Sodium 137 (137-145) mmol/L Potassium 4.8 (3.5-5.1) mmol/L Chloride 105 (98-107) mmol/L Carbon Dioxide 18 L (22-30) mmol/L Anion Gap 14 mmol/L BUN 21 H (7-17) mg/dL Creatinine 0.93 (0.52-1.04) mg/dL Est GFR (CKD-EPI)AfAm 74 (>60 ml/min/1.73 sqM) Est GFR (CKD-EPI)NonAf 64 (>60 ml/min/1.73 sqM) Glucose 159 H (74-99) mg/dL Plasma Lactic Acid Matheus (0.7-2.0) mmol/L Calcium 10.7 H (8.4-10.2) mg/dL Total Bilirubin 0.4 (0.2-1.3) mg/dL AST 45 H (14-36) U/L ALT 38 H (4-34) U/L Alkaline Phosphatase 143 H (38-126) U/L Troponin I <0.012 (0.000-0.034) ng/mL Total Protein 7.8 (6.3-8.2) g/dL Albumin 4.8 (3.5-5.0) g/dL Lipase 146 (23-300) U/L 08/10/21 Range/Units 01:22 WBC (3.8-10.6) k/uL RBC (3.80-5.40) m/uL Hgb (11.4-16.0) gm/dL Hct (34.0-46.0) % MCV (80.0-100.0) fL MCH (25.0-35.0) pg MCHC (31.0-37.0) g/dL RDW (11.5-15.5) % Plt Count (150-450) k/uL MPV Neutrophils % % Lymphocytes % % Monocytes % % Eosinophils % % Basophils % % Neutrophils # (1.3-7.7) k/uL Lymphocytes # (1.0-4.8) k/uL Monocytes # (0-1.0) k/uL Eosinophils # (0-0.7) k/uL Basophils # (0-0.2) k/uL Sodium (137-145) mmol/L Potassium (3.5-5.1) mmol/L Chloride (98-107) mmol/L Carbon Dioxide (22-30) mmol/L Anion Gap mmol/L BUN (7-17) mg/dL Creatinine (0.52-1.04) mg/dL Est GFR (CKD-EPI)AfAm (>60 ml/min/1.73 sqM) Est GFR (CKD-EPI)NonAf (>60 ml/min/1.73 sqM) Glucose (74-99) mg/dL Plasma Lactic Acid Matheus 1.5 (0.7-2.0) mmol/L Calcium (8.4-10.2) mg/dL Total Bilirubin (0.2-1.3) mg/dL AST (14-36) U/L ALT (4-34) U/L Alkaline Phosphatase (38-126) U/L Troponin I (0.000-0.034) ng/mL Total Protein (6.3-8.2) g/dL Albumin (3.5-5.0) g/dL Lipase (23-300) U/L Disposition Clinical Impression: Small bowel obstruction Disposition: ADMITTED IP TO THIS HOSP Condition: Fair Is patient prescribed a controlled substance at d/c from ED?: No Referrals: Jaskaran Pressley MD [Primary Care Provider] - 1-2 days Time of Disposition: :51
[2021-02-11 00:39] LABS: Basophils # (A) 0.1 k/uL (0-0.2); Basophils % (A) 0 %; Eosinophils # (A) 0.1 k/uL (0-0.7); Eosinophils % (A) 1 %; HCT 43.6 % (34.0-46.0); HGB 14.6 gm/dL (11.4-16.0); Lymphocytes % (A) 17 %; MCH 30.7 pg (25.0-35.0); MCHC 33.5 g/dL (31.0-37.0); MCV 91.6 fL (80.0-100.0); Mean Platelet Volume 8.4; Monocytes # (A) 0.7 k/uL (0-1.0); Monocytes % (A) 4 %; Neutrophils # (A) 13.2 k/uL (1.3-7.7); Neutrophils % (A) 77 %; Platelet Count 319 k/uL (150-450); RBC 4.76 m/uL (3.80-5.40); RDW 15.9 % (11.5-15.5); WBC 17.2 k/uL (3.8-10.6)
[2021-02-11 00:49] LABS: Albumin 4.8 g/dL (3.5-5.0); Calcium 10.7 mg/dL (8.4-10.2); Potassium 4.8 mmol/L (3.5-5.1); Total Bilirubin 0.4 mg/dL (0.2-1.3); Total Protein 7.8 g/dL (6.3-8.2)
[2021-02-11] MEDS ORDERED: cefTRIAXone IN SWFI 1,000 MG/10 ML SYRINGE IVP STA (00:58)
[2021-02-11] MEDS ORDERED: SODIUM CHLORIDE 0.9% 1,000 ML IV STA (01:25)
[2021-02-11] MEDS ORDERED: HYDROmorphone 0.5 MG/0.5 ML SYRINGE IVP STA (02:13)
--- NOTE | 2021-02-11 02:30 | CT ---
EXAMINATION TYPE: CT abdomen pelvis w con DATE OF EXAM: 02/11/2021 COMPARISON: 01/01/2020 HISTORY: epigastric and mid abd pain CT DLP: 1468.6 mGycm Automated exposure control for dose reduction was used. CONTRAST: Performed with IV Contrast, patient injected with 100 mL of Isovue 300. Images obtained from the diaphragm to the floor the pelvis with IV contrast. There is some mild atelectasis at the lung bases. Heart size is normal. There are bilateral breast im plants. The liver spleen stomach pancreas appear intact. The bile ducts are not dilated. Gallbladder appears absent. There is no adrenal mass. Kidneys show satisfactory contrast opacification. There is no hydronephrosi s. Ureters are not dilated. There is no retroperitoneal adenopathy. Bladder distends smoothly. There is left hip prosthesis. There is suprapubic bladder catheter noted. There are phleboliths in the pelv is. There is no mesenteric edema. There is no ascites or free air. There are multiple dilated small bowel loops with air-fluid levels. Small bowel measures up to almost 4 cm. The terminal ileum is not dilat ed. Transition point is not identified. The lumbar vertebra have normal alignment. There is posterior fusion surgery from L3 to S1. There is no compression fracture. There is left hip prosthesis. The right hip joint is intact. Large bowel is not dilated. Appendix is not seen. There is no sign of thickened appendix. IMPRESSION: There is evidence for a mechanical small bowel obstruction involving the distal jejunum or proximal i leum. Small bowel dilation is increased compared to old exam. Transition point not seen. There is bowen e mild scarring and subsegmental atelectasis at the lung bases unchanged.
[2021-02-11] MEDS ORDERED: LORazepam 2 MG/ML INJ IV PRN (02:51)
[2021-02-11] MEDS ORDERED: NALOXONE 0.4 MG/ML 1 ML VIAL IV PRN (02:51)
[2021-02-11] MEDS ORDERED: MORPHINE SULFATE 4 MG/ML SYRINGE IV PRN (02:51)
[2021-02-11 03:38] LABS: Appearance,Urine Clear (Clear); Bacteria,Urine Many /hpf; Bilirubin,Urine Negative (Negative); Blood,Urine Small (Negative); Color,Urine Yellow; Glucose,Urine (UA) Negative (Negative); Hyaline Casts,Urine 10 /lpf (0-2); Ketones,Urine Negative (Negative); Leukocyte Esterase,Urine Large (Negative); Mucus,Urine Occasional /hpf; Nitrite,Urine Positive (Negative); Protein,Urine 1+ (Negative); RBC,Urine 14 /hpf (0-5); Squamous Epithelial Cell,Urine 1 /hpf (0-4); Urobilinogen,Urine <2.0 mg/dL (<2.0); WBC,Urine 19 /hpf (0-5)
--- NOTE | 2021-02-11 04:02 | XR ---
EXAMINATION TYPE: XR chest 1V DATE OF EXAM: 02/11/2021 COMPARISON: 09/09/2019 HISTORY: Tube placement TECHNIQUE: Single view FINDINGS: There is no heart failure nor confluent pneumonic infiltrate. Costophrenic angles are clear . There is nasogastric tube partly looped in the gastric fundus. There are no hilar masses. IMPRESSION: NG tube is in the stomach. No active cardiopulmonary disease. There is clearing of the ri ght side pulmonary infiltrates compared to old exam.
[2021-02-11] MEDS: ONDANSETRON 4 MG/2 ML VIAL IVP PRN ×3 (04:35→22:18)
[2021-02-11] MEDS: HYDROmorphone 0.5 MG/0.5 ML SYRINGE IVP PRN ×2 (06:31→11:27)
[2021-02-11] MEDS: SODIUM CHLORIDE 0.9% 1,000 ML IV SCH ×2 (06:31→22:21)
--- NOTE | 2021-02-11 08:37 | P.HPIM ---
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 The patient has history of previous small bowel obstruction. Multiple surgeries are noted secondary to her latter atony. History of recurrent UTI. The patient has chronic pain elements and multiple ALLERGIES. She was scheduled to see me today but had significant nausea. Workup shows small bowel obstruction. The patient is admitted with NG tube and is now nothing by mouth. Review of Systems Constitutional: Denies chills, Denies fever Eyes: denies blurred vision, denies pain Cardiovascular: Denies chest pain, Denies shortness of breath Respiratory: Denies cough Gastrointestinal: Reports abdominal pain Genitourinary: Denies dysuria, Denies hematuria Past Medical History Past Medical History: Chest Pain / Angina, Eye Disorder, Fibromyalgia, GERD/Reflux, Memory Impairment, Osteoarthritis (OA), Pneumonia, Thyroid Disorder Additional Past Medical History / Comment(s): . 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 MINOR, OCC Short term memory loss. DDD Cervical, Thoracic, Lumbar levels. Chronic Pain syndrome in Back. Proctosigmoiditis w/ Colostomy. Diverticulosis. Neuropathy kalyani legs/feet. Migraines. Veritgo. Glaucoma kalyani. KEISHA-BARRE, septic shock, History of Any Multi-Drug Resistant Organisms: C-DIFF Date of last positivie culture/infection: 2010 MDRO Source:: stool Past Surgical History: Adenoidectomy, Back Surgery, Bladder Surgery, Bowel Resection, Breast Surgery, Cholecystectomy, Heart Catheterization, Hysterectomy, Joint Replacement, Tonsillectomy Additional Past Surgical History / Comment(s): 12/06/13 Cardiac cath-normal. cervical Fusion, Back surgury-rods/screws/cage, partial bowel resection with colostomy, total RIGHT KNEE REPLACEMENT, L knee arthroscopy, bladder suspension, cataracts breast augmentation. hip replacedment knee replacement Past Anesthesia/Blood Transfusion Reactions: Family History of Problems w/ Anesthesia, Postoperative Nausea & Vomiting (PONV) Additional Past Anesthesia/Blood Transfusion Reaction / Comment(s): FAMILY HAS PONV. Past Psychological History: Depression Smoking Status: Never smoker Past Alcohol Use History: None Reported Past Drug Use History: None Reported - Past Family History Father Family Medical History: Cancer, Musculoskeletal Disorder, Neurologic Disorder Additional Family Medical History / Comment(s): Father at 77 yrs. He had parkinson's dx. Mother Family Medical History: Cancer Additional Family Medical History / Comment(s): Mother had breast cancer. She is alive and 82 yrs old. Medications and Allergies Home Medications Medication Instructions Recorded Confirmed Type Omeprazole [PriLOSEC] 20 mg PO AC-BID 15 Days capsule. 02/13/15 02/11/21 Rx Gabapentin 800 mg PO TID 09/04/15 02/11/21 History Ibuprofen [Motrin] 800 mg PO Q8H PRN 06/30/16 02/11/21 History Levothyroxine Sodium [Synthroid] 100 mcg PO DAILY 06/30/16 02/11/21 History oxyCODONE-APAP 5-325MG [Percocet 1 tab PO Q6H PRN 06/30/16 02/11/21 History 5-325 mg] buPROPion HCL [Wellbutrin XL] 300 mg PO DAILY 02/04/17 02/11/21 History Cholecalciferol (Vitamin D3) 2,000 unit PO HS 06/16/18 02/11/21 History [Vitamin D3] Docusate [Colace] 100 mg PO BID 06/16/18 02/11/21 History Multivitamins, Thera [Multivitamin 1 tab PO DAILY 01/23/19 02/11/21 History (formulary)] Vitamin B Complex 1 cap PO DAILY 01/23/19 02/11/21 History Bimatoprost [Lumigan .01% Ophth 1 drop BOTH EYES HS 09/09/19 02/11/21 History Soln] Fluticasone Nasal [place] [Flonase 1 - 2 spr EA NOSTRIL DAILY 01/01/20 02/11/21 History Nasal [place]] Meclizine [Antivert] 25 mg PO BID 01/01/20 02/11/21 History Olopatadine HCl [[place]] 1 drop BOTH EYES DAILY 02/11/21 02/11/21 History Polyethylene Glycol 3350 [Miralax] 17 gm PO BID 02/11/21 02/11/21 History Trospium Chloride 20 mg PO BID 02/11/21 02/11/21 History Allergies Allergy/AdvReac Type Severity Reaction Status Date / Time adhesive tape Allergy Rash/Hives Verified 02/11/21 08:08 ciprofloxacin [From Cipro] Allergy Unknown Verified 02/11/21 08:08 colesevelam [From WelChol] Allergy Rash/Hives Verified 02/11/21 08:08 colesevelam HCl Allergy Rash/Hives Verified 02/11/21 08:08 [From WelChol] lamivudine Allergy Rash/Hives Verified 02/11/21 08:08 latex Allergy Dyspnea Verified 02/11/21 08:08 levofloxacin [From Levaquin] Allergy Rash/Hives/ Verified 02/11/21 08:08 Fever prochlorperazine edisylate Allergy Anaphylaxis Verified 02/11/21 08:08 [From Compazine] prochlorperazine maleate Allergy Anaphylaxis Verified 02/11/21 08:08 [From Compazine] vancomycin Allergy Rash/Hives/ Verified 02/11/21 08:08 Fever zidovudine Allergy Rash/Hives Verified 02/11/21 08:08 nitrofurantoin AdvReac Nausea & Verified 02/11/21 08:08 [From Macrobid] Vomiting/Dizziness nitroglycerin AdvReac cervical Verified 02/11/21 08:08 fusion spasms tramadol HCl [From Ultram] AdvReac WEAKNESS, Verified 02/11/21 08:08 DIZZYNESS zolpidem [From Ambien] AdvReac SLEEP Verified 02/11/21 08:08 WALKING COMBID Allergy Rash/Hives Uncoded 09/09/19 04:35 Physical Exam Vitals: Vital Signs Temp Pulse Resp BP Pulse Ox 02/11/21 06:34 104 H 19 125/71 94 L 02/11/21 05:49 77 19 122/65 95 02/11/21 02:52 82 19 111/68 96 02/11/21 01:30 99 20 108/54 95 02/11/21 00:04 98.3 F 101 H 20 97/52 91 L Intake and Output 02/10/21 02/11/21 02/11/21 22:59 06:59 14:59 Other: Weight 81.647 kg - Constitutional General appearance: cooperative - EENT Eyes: EOMI - Neck Neck: no lymphadenopathy - Respiratory Respiratory: bilateral: diminished - Cardiovascular Heart sounds: normal: S1, S2 Abnormal Heart Sounds: no S3 Gallop - Gastrointestinal Significant bloating General gastrointestinal: absent bowel sounds, tenderness, no umbilical hernia - Integumentary Integumentary: no cyanotic - Neurologic Neurologic: CNII-XII intact - Psychiatric Psychiatric: A&O x's 3, appropriate affect, intact judgment & insight Results CBC & Chem 7: 02/11/21 00:25 02/11/21 00:25 Labs: Abnormal Lab Results - Last 24 Hours (Table) 02/11/21 02/11/21 02/11/21 Range/Units 00:25 00:25 00:25 WBC 17.2 H (3.8-10.6) k/uL RDW 15.9 H (11.5-15.5) % Neutrophils # 13.2 H (1.3-7.7) k/uL Carbon Dioxide 18 L (22-30) mmol/L BUN 21 H (7-17) mg/dL Glucose 159 H (74-99) mg/dL Calcium 10.7 H (8.4-10.2) mg/dL AST 45 H (14-36) U/L ALT 38 H (4-34) U/L Alkaline Phosphatase 143 H (38-126) U/L Ur Specific [place] 1.040 H (1.001-1.035) Urine Protein 1+ H (Negative) Urine Blood Small H (Negative) Urine Nitrite Positive H (Negative) Ur Leukocyte Esterase Large H (Negative) Urine RBC 14 H (0-5) /hpf Urine WBC 19 H (0-5) /hpf Urine Bacteria Many H (None) /hpf Hyaline Casts 10 H (0-2) /lpf Urine Mucus Occasional H (None) /hpf Assessment and Plan (1) Small bowel obstruction Current Visit: Yes Status: Acute Code(s): K56.609 - UNSP INTESTNL OBST, UNSP TO PARTIAL VERSUS COMPLETE OBST SNOMED Code(s): 783742815 (2) Abdominal pain Current Visit: No Status: Acute Code(s): R10.9 - UNSPECIFIED ABDOMINAL PAIN SNOMED Code(s): 54178435 (3) Atonic urinary bladder Current Visit: No Status: Acute Code(s): N31.2 - FLACCID NEUROPATHIC BLADDER, NOT ELSEWHERE CLASSIFIED SNOMED Code(s): 847062986 (4) Colostomy in place Current Visit: No Status: Acute Code(s): Z93.3 - COLOSTOMY STATUS SNOMED Code(s): 683689074 (5) GERD (gastroesophageal reflux disease) Current Visit: No Status: Acute Code(s): K21.9 - GASTRO-ESOPHAGEAL REFLUX DISEASE WITHOUT ESOPHAGITIS SNOMED Code(s): 619128667 (6) History of creation of ostomy Current Visit: No Status: Acute Code(s): Z93.9 - ARTIFICIAL OPENING STATUS, UNSPECIFIED SNOMED Code(s): 301424846 (7) Nausea and vomiting Current Visit: No Status: Acute Code(s): R11.2 - NAUSEA WITH VOMITING, UNSPECIFIED SNOMED Code(s): 84525545 (8) Suprapubic catheter Current Visit: No Status: Acute Code(s): Z93.59 - OTHER CYSTOSTOMY STATUS SNOMED Code(s): 150687748 Plan: We will go ahead and continue NG suction. GI prophylaxis otherwise. DVT prophylaxis as necessary per protocol. Consult general surgery. We will go ahead and reconcile medications when she is allowed to take by mouth. Prognosis guarded secondary to his multiple comorbidities. I suspect element of adhesions given the multiplicity of surgeries in the abdo kathryn area due to bladder atony. Check CBC and CMP in a.m. Consul Dr. Fowler
--- NOTE | 2021-02-11 14:35 | P.GSCN ---
History of Present Illness Consult date: 02/11/21 History of present illness: 65-year-old female presented to the emergency department with complaints of significant abdominal pain. She is noted to have a extensive surgical history, including multiple abdominal procedures. The patient does have a history of cholecystectomy, partial bowel resection with resulting colostomy, bladder suspension, hysterectomy and oophorectomy secondary to ovarian mass. The patient states that over the past 2 weeks, she has had worsening abdominal pain. She also complains of abdominal distention. She does have previous medical hi story of multiple small bowel obstructions, likely secondary to adhesions due to the extensive intra-abdominal surgical history. On workup, patient was found to have concern for a mechanical small bowel obstruction with dilation of the small bowel beginning in the distal jejunum and early ileum. The patient denied any nausea or vomiting episodes. She states her last bowel movement was yesterday afternoon, but was not the normal size that she has. She states that the last output from her ostomy and her ostomy appliances were changed at that time. Patient also was found to have leukocytosis and nasogastric tube was placed by the emergency department. Output has been 1 L since placement a few hours ago. Currently, she is being seen as a hold in the emergency department and awaiting bed placement. Review of Systems All systems: negative Past Medical History Past Medical History: Chest Pain / Angina, Eye Disorder, Fibromyalgia, GERD/Reflux, Memory Impairment, Osteoarthritis (OA), Pneumonia, Thyroid Disorder Additional Past Medical History / Comment(s): . 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 MINOR, OCC Short term memory loss. DDD Cervical, Thoracic, Lumbar levels. Chronic Pain syndrome in Back. Proctosigmoiditis w/ Colostomy. Diverticulosis. Neuropathy kalyani legs/feet. Migraines. Veritgo. Glaucoma kalyani. KEISHA-BARRE, septic shock, History of Any Multi-Drug Resistant Organisms: C-DIFF Year Discovered:: 2010 MDRO Source:: stool Past Surgical History: Adenoidectomy, Back Surgery, Bladder Surgery, Bowel Resection, Breast Surgery, Cholecystectomy, Heart Catheterization, Hysterectomy, Joint Replacement, Tonsillectomy Additional Past Surgical History / Comment(s): 12/06/13 Cardiac cath-normal. cervical Fusion, Back surgury-rods/screws/cage, partial bowel resection with colostomy, total RIGHT KNEE REPLACEMENT, L knee arthroscopy, bladder suspension, cataracts breast augmentation. hip replacedment knee replacement Past Anesthesia/Blood Transfusion Reactions: Family History of Problems w/ Anesthesia, Postoperative Nausea & Vomiting (PONV) Additional Past Anesthesia/Blood Transfusion Reaction / Comm: FAMILY HAS PONV. Past Psychological History: Depression Smoking Status: Never smoker Past Alcohol Use History: None Reported Past Drug Use History: None Reported - Past Family History Father Family Medical History: Cancer, Musculoskeletal Disorder, Neurologic Disorder Additional Family Medical History / Comment(s): Father at 77 yrs. He had parkinson's dx. Mother Family Medical History: Cancer Additional Family Medical History / Comment(s): Mother had breast cancer. She is alive and 82 yrs old. Medications and Allergies Home Medications Medication Instructions Recorded Confirmed Type Omeprazole [PriLOSEC] 20 mg PO AC-BID 15 Days capsule. 02/13/15 02/11/21 Rx Gabapentin 800 mg PO TID 09/04/15 02/11/21 History Ibuprofen [Motrin] 800 mg PO Q8H PRN 06/30/16 02/11/21 History Levothyroxine Sodium [Synthroid] 100 mcg PO DAILY 06/30/16 02/11/21 History oxyCODONE-APAP 5-325MG [Percocet 1 tab PO Q6H PRN 06/30/16 02/11/21 History 5-325 mg] buPROPion HCL [Wellbutrin XL] 300 mg PO DAILY 02/04/17 02/11/21 History Cholecalciferol (Vitamin D3) 2,000 unit PO HS 06/16/18 02/11/21 History [Vitamin D3] Docusate [Colace] 100 mg PO BID 06/16/18 02/11/21 History Multivitamins, Thera [Multivitamin 1 tab PO DAILY 01/23/19 02/11/21 History (formulary)] Vitamin B Complex 1 cap PO DAILY 01/23/19 02/11/21 History Bimatoprost [[place]umigan .01% Ophth 1 drop BOTH EYES HS 09/09/19 02/11/21 History Soln] Fluticasone Nasal [place] [Flonase 1 - 2 spr EA NOSTRIL DAILY 01/01/20 02/11/21 History Nasal [place]] Meclizine [Antivert] 25 mg PO BID 01/01/20 02/11/21 History Olopatadine HCl [Pataday] 1 drop BOTH EYES DAILY 02/11/21 02/11/21 History Polyethylene Glycol 3350 [Miralax] 17 gm PO BID 02/11/21 02/11/21 History Trospium Chloride 20 mg PO BID 02/11/21 02/11/21 History Allergies Allergy/AdvReac Type Severity Reaction Status Date / Time adhesive tape Allergy Rash/Hives Verified 02/11/21 08:08 ciprofloxacin [From Cipro] Allergy Unknown Verified 02/11/21 08:08 colesevelam [From WelChol] Allergy Rash/Hives Verified 02/11/21 08:08 colesevelam HCl Allergy Rash/Hives Verified 02/11/21 08:08 [From WelChol] lamivudine Allergy Rash/Hives Verified 02/11/21 08:08 latex Allergy Dyspnea Verified 02/11/21 08:08 levofloxacin [From Levaquin] Allergy Rash/Hives/ Verified 02/11/21 08:08 Fever prochlorperazine edisylate Allergy Anaphylaxis Verified 02/11/21 08:08 [From Compazine] prochlorperazine maleate Allergy Anaphylaxis Verified 02/11/21 08:08 [From Compazine] vancomycin Allergy Rash/Hives/ Verified 02/11/21 08:08 Fever zidovudine Allergy Rash/Hives Verified 02/11/21 08:08 nitrofurantoin AdvReac Nausea & Verified 02/11/21 08:08 [From Macrobid] Vomiting/Dizziness nitroglycerin AdvReac cervical Verified 02/11/21 08:08 fusion spasms tramadol HCl [From Ultram] AdvReac WEAKNESS, Verified 02/11/21 08:08 DIZZYNESS zolpidem [From Ambien] AdvReac SLEEP Verified 02/11/21 08:08 WALKING COMBID Allergy Rash/Hives Uncoded 09/09/19 04:35 Surgical - Exam Osteopathic Statement: *. No significant issues noted on an osteopathic structural exam other than those noted in the History and Physical/Consult. Vital Signs Temp Pulse Resp BP Pulse Ox 98.3 F 101 H 20 97/52 91 L 02/11/21 00:04 02/11/21 00:04 02/11/21 00:04 02/11/21 00:04 02/11/21 00:04 - General no distress - Eyes normal ocular movement - ENT no hearing loss - Neck trachea midline - Respiratory normal respiratory effort - Abdomen Soft, no significant tenderness, mild distention, no rebound, no guarding, ostomy is pink and patent with no gas or stool in the appliance - Psychiatric oriented to time, oriented to person, oriented to place Results - Labs 02/11/21 00:25 02/11/21 00:25 Abnormal Lab Results - Last 24 Hours (Table) 02/11/21 02/11/21 02/11/21 Range/Units 00:25 00:25 00:25 WBC 17.2 H (3.8-10.6) k/uL RDW 15.9 H (11.5-15.5) % Neutrophils # 13.2 H (1.3-7.7) k/uL Carbon Dioxide 18 L (22-30) mmol/L BUN 21 H (7-17) mg/dL Glucose 159 H (74-99) mg/dL Calcium 10.7 H (8.4-10.2) mg/dL AST 45 H (14-36) U/L ALT 38 H (4-34) U/L Alkaline Phosphatase 143 H (38-126) U/L Ur Specific [place] 1.040 H (1.001-1.035) Urine Protein 1+ H (Negative) Urine Blood Small H (Negative) Urine Nitrite Positive H (Negative) Ur Leukocyte Esterase Large H (Negative) Urine RBC 14 H (0-5) /hpf Urine WBC 19 H (0-5) /hpf Urine Bacteria Many H (None) /hpf Hyaline Casts 10 H (0-2) /lpf Urine Mucus Occasional H (None) /hpf Microbiology - Last 24 Hours (Table) 02/11/21 00:25 Urine Culture - Preliminary Urine,Voided Diabetes panel 02/11/21 Range/Units 00:25 Sodium 137 (137-145) mmol/L Potassium 4.8 (3.5-5.1) mmol/L Chloride 105 (98-107) mmol/L Carbon Dioxide 18 L (22-30) mmol/L BUN 21 H (7-17) mg/dL Creatinine 0.93 (0.52-1.04) mg/dL Glucose 159 H (74-99) mg/dL Calcium 10.7 H (8.4-10.2) mg/dL AST 45 H (14-36) U/L ALT 38 H (4-34) U/L Alkaline Phosphatase 143 H (38-126) U/L Total Protein 7.8 (6.3-8.2) g/dL Albumin 4.8 (3.5-5.0) g/dL Calcium panel 02/11/21 Range/Units 00:25 Calcium 10.7 H (8.4-10.2) mg/dL Albumin 4.8 (3.5-5.0) g/dL Pituitary panel 02/11/21 Range/Units 00:25 Sodium 137 (137-145) mmol/L Potassium 4.8 (3.5-5.1) mmol/L Chloride 105 (98-107) mmol/L Carbon Dioxide 18 L (22-30) mmol/L BUN 21 H (7-17) mg/dL Creatinine 0.93 (0.52-1.04) mg/dL Glucose 159 H (74-99) mg/dL Calcium 10.7 H (8.4-10.2) mg/dL Adrenal panel 02/11/21 Range/Units 00:25 Sodium 137 (137-145) mmol/L Potassium 4.8 (3.5-5.1) mmol/L Chloride 105 (98-107) mmol/L Carbon Dioxide 18 L (22-30) mmol/L BUN 21 H (7-17) mg/dL Creatinine 0.93 (0.52-1.04) mg/dL Glucose 159 H (74-99) mg/dL Calcium 10.7 H (8.4-10.2) mg/dL Total Bilirubin 0.4 (0.2-1.3) mg/dL AST 45 H (14-36) U/L ALT 38 H (4-34) U/L Alkaline Phosphatase 143 H (38-126) U/L Total Protein 7.8 (6.3-8.2) g/dL Albumin 4.8 (3.5-5.0) g/dL Assessment and Plan Plan: 65-year-old female with concern for mechanical small bowel obstruction. Patient has had nasogastric tube placed with 1 L of output that is noted to be bilious. We will keep the patient nothing by mouth at this time. Patient's daughter at bedside and case was discussed with her as well. Patient does state that she would like to avoid any surgical intervention due to her extensive history of surgery the past. We will continue with nasogastric tube decompression at this time. Continue medical management. We'll continue to follow and provide recommendations for a 7 patient's clinical progress.
[2021-02-11] MEDS ORDERED: SODIUM CHLORIDE 0.9% 500 ML 500 ML IV STA (18:30)
[2021-02-11] MEDS ORDERED: DILTIAZEM DRIP BOLUS FROM BAG 1 MG SOLN IV ONE (18:32)
[2021-02-11] MEDS ORDERED: HEPARIN SODIUM 1,000 UN/ML (10ML VL) IV ONE (18:33)
[2021-02-11] MEDS ORDERED: DILTIAZEM 125 MG in SODIUM CHLORIDE 0.9% 100 ML IV SCH (18:45)
[2021-02-11] MEDS ORDERED: HEPARIN SOD,PORK IN 0.45% NACL 25,000 UNIT in 0.45% NACL 1 250ML.BAG IV SCH (18:45)
[2021-02-12] MEDS: SODIUM CHLORIDE 0.9% 1,000 ML IV SCH ×2 (04:30→20:06)
--- NOTE | 2021-02-12 08:53 | P.PN ---
Subjective Principal diagnosis: Partial SBO/Ileus The patient is here essentially for partial small bowel obstruction. 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 The patient states she feels a little better but is not passing gas. NG tube suction is noted Objective - Vital Signs Vital signs: Vital Signs Temp 98.2 F 02/12/21 07:43 Pulse 91 02/12/21 07:43 Resp 16 02/12/21 07:43 BP 108/69 02/12/21 07:43 Pulse Ox 94 L 02/12/21 07:43 Intake & Output 02/11/21 02/12/21 02/12/21 18:59 06:59 18:59 Output Total 400 450 Balance -400 -450 Output: Gastric Drainage 400 Urine 450 Other: # Voids 0 # Bowel Movements 0 - Constitutional General appearance: Present: average body habitus - EENT Eyes: Absent: abnormal pupil - Neck Neck: Absent: lymphadenopathy - Respiratory Respiratory: bilateral: diminished - Cardiovascular Rhythm: regular Heart sounds: normal: S1, S2 Abnormal Heart Sounds: Absent: S3 Gallop - Gastrointestinal General gastrointestinal: Present: decreased bowel sounds - Integumentary Integumentary: Absent: cyanotic - Labs CBC & Chem 7: 02/11/21 00:25 02/11/21 00:25 Labs: Microbiology - Last 24 Hours (Table) 02/11/21 01:22 Blood Culture - Preliminary Blood No Growth after 24 hours 02/11/21 01:22 Blood Culture - Preliminary Blood No Growth after 24 hours 02/11/21 00:25 Urine Culture - Preliminary Urine,Voided Assessment and Plan (1) Small bowel obstruction Current Visit: Yes Status: Acute Code(s): K56.609 - UNSP INTESTNL OBST, UNSP TO PARTIAL VERSUS COMPLETE OBST SNOMED Code(s): 099170133 (2) Abdominal pain Current Visit: No Status: Acute Code(s): R10.9 - UNSPECIFIED ABDOMINAL PAIN SNOMED Code(s): 46983803 (3) Atonic urinary bladder Current Visit: No Status: Acute Code(s): N31.2 - FLACCID NEUROPATHIC BLADDER, NOT ELSEWHERE CLASSIFIED SNOMED Code(s): 510928433 (4) Colostomy in place Current Visit: No Status: Acute Code(s): Z93.3 - COLOSTOMY STATUS SNOMED Code(s): 250370173 (5) GERD (gastroesophageal reflux disease) Current Visit: No Status: Acute Code(s): K21.9 - GASTRO-ESOPHAGEAL REFLUX DISEASE WITHOUT ESOPHAGITIS SNOMED Code(s): 471046246 (6) History of creation of ostomy Current Visit: No Status: Acute Code(s): Z93.9 - ARTIFICIAL OPENING STATUS, UNSPECIFIED SNOMED Code(s): 860367402 (7) Nausea and vomiting Current Visit: No Status: Acute Code(s): R11.2 - NAUSEA WITH VOMITING, UNSPECIFIED SNOMED Code(s): 23454477 (8) Suprapubic catheter Current Visit: No Status: Acute Code(s): Z93.59 - OTHER CYSTOSTOMY STATUS SNOMED Code(s): 563999537 Plan: Continue NG tube suction. Continue nothing by mouth Continue GI and DVT prophylaxis. We'll continue to follow. New. Check CBC and CMP in a.m.
[2021-02-12 09:34] LABS: HCT 37.9 % (37.2-46.3); HGB 11.9 g/dL (12.0-15.0); MCH 29.9 pg (27.0-32.0); MCHC 31.4 g/dL (32.0-37.0); MCV 95.2 fL (80.0-97.0); Mean Platelet Volume 11.1 fL (9.5-12.2); Platelet Count 253 X 10*3/uL (140-440); RBC 3.98 X 10*6/uL (4.10-5.20); RDW 16.2 % (11.5-14.5); WBC 9.88 X 10*3/uL (4.50-10.00)
--- NOTE | 2021-02-12 09:54 | XR ---
EXAMINATION TYPE: XR abdomen acute w cxr DATE OF EXAM: 02/12/2021 COMPARISON: 02/11/2021 INDICATION: Small bowel obstruction progress TECHNIQUE: Chest is examined in the frontal projection. Abdomen is examined in supine and upright vie ws. FINDINGS: Heart size is normal. Pulmonary vasculature is normal. Lungs are clear. Nasogastric tube transverses the thorax. There are multiple air-fluid levels within small bowel loops compatible small bowel obstruction. This may be partial with some air remaining within the colon. Ostomy is in the left lower quadrant. No ma ss effect is evident. Postsurgical changes are within the lumbar spine and left hip Psoas margins are normal. No organomegaly is present. IMPRESSION: 1. Partial small bowel obstruction mid abdomen
[2021-02-12] MEDS: PANTOPRAZOLE 40 MG/10 ML VIAL IVP SCH (10:10)
[2021-02-12 10:48] LABS: African American GFR (CKD) 109.3 (60.0-200.0); Albumin 3.8 g/dL (3.80-4.90); Albumin/Globulin Ratio 1.81 (1.60-3.17); Anion Gap 9.4 mmol/L (4.00-12.00); BUN/Creat Ratio 31.67 Ratio (12.00-20.00); Calcium 8.5 mg/dL (8.7-10.3); Carbon Dioxide 23.6 mmol/L (21.6-31.8); Globulin 2.1 g/dL (1.6-3.3); Non-African American GFR(CKD) 94.3 (60.0-200.0); Potassium 4.3 mmol/L (3.5-5.5); Total Bilirubin 0.3 mg/dL (0.3-1.2); Total Protein 5.9 g/dL (6.2-8.2)
--- NOTE | 2021-02-12 13:02 | P.PN ---
Subjective Progress Note Date: 02/12/21 Patient seen and examined at bedside. Overall, states abdominal pain is much improved. Nasogastric tube in place with 400 cc over the past 24 hours. No significant output from the ostomy site as of yet. Partial small bowel obstruction is noted on abdominal x-ray from this morning. Denies tram sea/vomiting. Objective - Vital Signs Vital signs: Vital Signs Temp 98.2 F 02/12/21 07:43 Pulse 91 02/12/21 07:43 Resp 16 02/12/21 07:43 BP 108/69 02/12/21 07:43 Pulse Ox 94 L 02/12/21 07:43 Intake & Output 02/11/21 02/12/21 02/12/21 18:59 06:59 18:59 Output Total 400 450 Balance -400 -450 Output: Gastric Drainage 400 Urine 450 Other: Voiding Method Ileal Conduit (Right) # Voids 0 # Bowel Movements 0 - Constitutional General appearance: Present: cooperative, no acute distress - Gastrointestinal Gastrointestinal Comment(s): Soft, nontender, improved distention with remaining mild distention, no rebound, no guarding - Psychiatric Psychiatric: Present: A&O x's 3 - Labs CBC & Chem 7: 02/12/21 05:37 02/12/21 05:37 Labs: Abnormal Lab Results - Last 24 Hours (Table) 02/12/21 02/12/21 Range/Units 05:37 05:37 RBC 3.98 L (4.10-5.20) X 10*6/uL Hgb 11.9 L (12.0-15.0) g/dL MCHC 31.4 L (32.0-37.0) g/dL RDW 16.2 H (11.5-14.5) % BUN/Creatinine Ratio 31.67 H (12.00-20.00) Ratio Calcium 8.5 L (8.7-10.3) mg/dL Total Protein 5.9 L (6.2-8.2) g/dL Microbiology - Last 24 Hours (Table) 02/11/21 01:22 Blood Culture - Preliminary Blood No Growth after 24 hours 02/11/21 01:22 Blood Culture - Preliminary Blood No Growth after 24 hours 02/11/21 00:25 Urine Culture - Preliminary Urine,Voided Assessment and Plan Plan: Patient having much improved abdominal exam today with continued mild distention. No tenderness. Abdominal x-ray from this morning was reviewed. Air is noted in the colon with partial small bowel obstruction being read. Patient does not have any significant output in her ostomy at this point. Continue nasogastric tube at low intermittent suction. Patient has once again verbalized that she would like to avoid any surgery if possible.
[2021-02-12] MEDS: HYDROmorphone 0.5 MG/0.5 ML SYRINGE IVP PRN (13:48)
[2021-02-13] MEDS: SODIUM CHLORIDE 0.9% 1,000 ML IV SCH (05:40)
[2021-02-13] MEDS: PANTOPRAZOLE 40 MG/10 ML VIAL IVP SCH (06:57)
[2021-02-13 09:39] LABS: HCT 37.3 % (37.2-46.3); HGB 11.8 g/dL (12.0-15.0); MCH 29.6 pg (27.0-32.0); MCHC 31.6 g/dL (32.0-37.0); MCV 93.5 fL (80.0-97.0); Mean Platelet Volume 10.8 fL (9.5-12.2); Platelet Count 229 X 10*3/uL (140-440); RBC 3.99 X 10*6/uL (4.10-5.20); RDW 15.3 % (11.5-14.5); WBC 9.08 X 10*3/uL (4.50-10.00)
--- NOTE | 2021-02-13 10:48 | P.PN ---
Subjective Principal diagnosis: Partial SBO/Ileus The patient is here essentially for partial small bowel obstruction. 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 The patient states she feels a little better but is not passing gas. NG tube suction is noted The patient is ambulating a little. GI prophylaxis is given Objective - Vital Signs Vital signs: Vital Signs Temp 98.0 F 02/13/21 07:44 Pulse 93 02/13/21 07:44 Resp 18 02/13/21 07:44 BP 139/68 02/13/21 07:44 Pulse Ox 96 02/13/21 07:44 Intake & Output 02/12/21 02/13/21 02/13/21 18:59 06:59 18:59 Output Total 800 950 Balance -800 -950 Output: Urine 800 950 Other: Voiding Method Ileal Conduit (Right) Ileal Conduit (Right) Ileal Conduit (Right) - Constitutional General appearance: Present: no acute distress - EENT Eyes: Absent: abnormal pupil - Respiratory Respiratory: bilateral: CTA, diminished, dullness, rales, rhonchi, wheezing, prolonged expiration, prolonged inspiration, other - Cardiovascular Rhythm: regular Heart sounds: normal: S1, S2 Abnormal Heart Sounds: Absent: S3 Gallop - Gastrointestinal General gastrointestinal: Present: decreased bowel sounds - Neurologic Neurologic: Absent: focal deficits - Labs CBC & Chem 7: 02/13/21 05:06 02/12/21 05:37 Labs: Abnormal Lab Results - Last 24 Hours (Table) 02/12/21 02/13/21 Range/Units 05:37 05:06 RBC 3.99 L (4.10-5.20) X 10*6/uL Hgb 11.8 L (12.0-15.0) g/dL MCHC 31.6 L (32.0-37.0) g/dL RDW 15.3 H (11.5-14.5) % BUN/Creatinine Ratio 31.67 H (12.00-20.00) Ratio Calcium 8.5 L (8.7-10.3) mg/dL Total Protein 5.9 L (6.2-8.2) g/dL Microbiology - Last 24 Hours (Table) 02/11/21 01:22 Blood Culture - Preliminary Blood No Growth after 48 hours 02/11/21 01:22 Blood Culture - Preliminary Blood No Growth after 48 hours 02/11/21 00:25 Urine Culture - Preliminary Urine,Voided Gram Neg Bacilli Assessment and Plan (1) Small bowel obstruction Current Visit: Yes Status: Acute Code(s): K56.609 - UNSP INTESTNL OBST, UNSP TO PARTIAL VERSUS COMPLETE OBST SNOMED Code(s): 842071496 (2) Abdominal pain Current Visit: No Status: Acute Code(s): R10.9 - UNSPECIFIED ABDOMINAL PAIN SNOMED Code(s): 02778307 (3) Atonic urinary bladder Current Visit: No Status: Acute Code(s): N31.2 - FLACCID NEUROPATHIC BLADDER, NOT ELSEWHERE CLASSIFIED SNOMED Code(s): 040045322 (4) Colostomy in place Current Visit: No Status: Acute Code(s): Z93.3 - COLOSTOMY STATUS SNOMED Code(s): 824059583 (5) GERD (gastroesophageal reflux disease) Current Visit: No Status: Acute Code(s): K21.9 - GASTRO-ESOPHAGEAL REFLUX DISEASE WITHOUT ESOPHAGITIS SNOMED Code(s): 185672727 (6) History of creation of ostomy Current Visit: No Status: Acute Code(s): Z93.9 - ARTIFICIAL OPENING STATUS, UNSPECIFIED SNOMED Code(s): 873279449 (7) Nausea and vomiting Current Visit: No Status: Acute Code(s): R11.2 - NAUSEA WITH VOMITING, UNSPECIFIED SNOMED Code(s): 67685871 (8) Suprapubic catheter Current Visit: No Status: Acute Code(s): Z93.59 - OTHER CYSTOSTOMY STATUS SNOMED Code(s): 526207857 Plan: Continue NG tube suction. Continue GI and DVT prophylaxis. We'll continue to follow. Check CBC and CMP in a.m. Time with Patient: Less than 30
[2021-02-13] MEDS: HYDROmorphone 0.5 MG/0.5 ML SYRINGE IVP PRN ×2 (11:01→20:35)
[2021-02-13] MEDS: KETOTIFEN 0.025% OPHTH DROPS 5 ML BTL BOTH EYES SCH ×2 (11:47→20:34)
[2021-02-13 15:33] LABS: Appearance,Urine Clear (Clear); Bacteria,Urine Occasional /hpf; Bilirubin,Urine Negative (Negative); Blood,Urine Trace (Negative); Color,Urine Yellow; Glucose,Urine (UA) Negative (Negative); Ketones,Urine 2+ (Negative); Leukocyte Esterase,Urine Small (Negative); Mucus,Urine Few /hpf; Nitrite,Urine Negative (Negative); Protein,Urine Trace (Negative); RBC,Urine 6 /hpf (0-5); Specific Gravity,Urine 1.015 (1.001-1.035); Urobilinogen,Urine <2.0 mg/dL (<2.0); WBC,Urine 13 /hpf (0-5)
--- NOTE | 2021-02-13 16:06 | P.PN ---
Subjective Progress Note Date: 02/13/21 Patient seen and examined at bedside. States she is feeling much better. Nasogastric tube with minimum output. She states that this afternoon she had a large amount of flatus and a small amount of stool in the ostomy. She states her abdominal pain is mostly improved. Objective - Vital Signs Vital signs: Vital Signs Temp 97.9 F 02/13/21 13:28 Pulse 99 02/13/21 13:28 Resp 16 02/13/21 13:28 BP 126/71 02/13/21 13:28 Pulse Ox 94 L 02/13/21 13:28 Intake & Output 02/12/21 02/13/21 02/13/21 18:59 06:59 18:59 Output Total 800 950 Balance -800 -950 Output: Urine 800 950 Other: Voiding Method Ileal Conduit (Right) Ileal Conduit (Right) Ileal Conduit (Right) - Constitutional General appearance: Present: cooperative, no acute distress - Gastrointestinal Gastrointestinal Comment(s): Soft, mild distention, much improved since admission, nontender, no rebound, no guarding - Psychiatric Psychiatric: Present: A&O x's 3 - Labs CBC & Chem 7: 02/13/21 05:06 02/12/21 05:37 Labs: Abnormal Lab Results - Last 24 Hours (Table) 02/13/21 Range/Units 05:06 RBC 3.99 L (4.10-5.20) X 10*6/uL Hgb 11.8 L (12.0-15.0) g/dL MCHC 31.6 L (32.0-37.0) g/dL RDW 15.3 H (11.5-14.5) % Microbiology - Last 24 Hours (Table) 02/11/21 00:25 Urine Culture - Final Urine,Voided Citrobacter freundii 02/11/21 01:22 Blood Culture - Preliminary Blood No Growth after 48 hours 02/11/21 01:22 Blood Culture - Preliminary Blood No Growth after 48 hours Assessment and Plan Plan: 65-year-old female with what appears to be a partial small bowel obstruction. Patient did have flatus and small amount of stool today. We'll continue nasogastric tube for now while we await further bowel function. Further recommendations based on patient's clinical progress.
[2021-02-13] MEDS: CEFEPIME 1 GM in SODIUM CHLORIDE 0.9% 50 ML IVPB SCH (16:55)
[2021-02-13] MEDS: LATANOPROST 0.005% OPHTH DROPS 2.5 ML BTL BOTH EYES SCH (20:34)
[2021-02-14] MEDS: SODIUM CHLORIDE 0.9% 1,000 ML IV SCH ×2 (04:25→10:49)
[2021-02-14] MEDS: CEFEPIME 1 GM in SODIUM CHLORIDE 0.9% 50 ML IVPB SCH ×2 (05:21→16:27)
[2021-02-14 05:38] LABS: ALT 48 U/L (4-34); AST 55 U/L (14-36); African American GFR (CKD) >90 (>60 ml/min/1.73 sqM); Albumin 3.7 g/dL (3.5-5.0); Albumin/Globulin Ratio 1.4; Alkaline Phosphatase 110 U/L (38-126); Anion Gap 10 mmol/L; Blood Urea Nitrogen 15 mg/dL (7-17); Calcium 9.4 mg/dL (8.4-10.2); Carbon Dioxide 21 mmol/L (22-30); Chloride 105 mmol/L (98-107); Globulin 2.6 g/dL; Glucose 90 mg/dL (74-99); Non-African American GFR(CKD) >90 (>60 ml/min/1.73 sqM); Potassium 3.9 mmol/L (3.5-5.1); Sodium 136 mmol/L (137-145); Total Bilirubin 0.3 mg/dL (0.2-1.3); Total Protein 6.3 g/dL (6.3-8.2)
[2021-02-14] MEDS: PANTOPRAZOLE 40 MG/10 ML VIAL IVP SCH (06:52)
[2021-02-14] MEDS: KETOTIFEN 0.025% OPHTH DROPS 5 ML BTL BOTH EYES SCH ×2 (06:54→20:40)
--- NOTE | 2021-02-14 07:34 | P.PN ---
Subjective Progress Note Date: 02/14/21 Patient seen and examined at bedside. She states she had a large bowel movement last night that was thick and did change her ostomy bag in the middle of the night. Currently, there is some stool in her new ostomy appliance. Patient states her abdomen feels much better and denies any significant pain. She states that she has had an episode of nausea. Objective - Vital Signs Vital signs: Vital Signs Temp 97.7 F 02/14/21 01:54 Pulse 83 02/14/21 01:54 Resp 16 02/14/21 01:54 BP 117/66 02/14/21 01:54 Pulse Ox 95 02/14/21 01:54 Intake & Output 02/13/21 02/14/21 02/14/21 18:59 06:59 18:59 Output Total 1000 675 Balance -1000 -675 Output: Urine 1000 600 Stool 75 Other: Voiding Method Ileal Conduit (Right) Ileal Conduit (Right) # Bowel Movements 1 - Constitutional General appearance: Present: cooperative, no acute distress - Gastrointestinal Gastrointestinal Comment(s): Soft, nontender, mild distention, no rebound, no guarding, ostomy is pink and patent with stool in ostomy appliance - Psychiatric Psychiatric: Present: A&O x's 3 - Labs CBC & Chem 7: 02/13/21 05:06 02/14/21 04:51 Labs: Abnormal Lab Results - Last 24 Hours (Table) 02/13/21 02/13/21 02/14/21 Range/Units 05:06 15:06 04:51 RBC 3.99 L (4.10-5.20) X 10*6/uL Hgb 11.8 L (12.0-15.0) g/dL MCHC 31.6 L (32.0-37.0) g/dL RDW 15.3 H (11.5-14.5) % Sodium 136 L (137-145) mmol/L Carbon Dioxide 21 L (22-30) mmol/L AST 55 H (14-36) U/L ALT 48 H (4-34) U/L Urine Protein Trace H (Negative) Urine Ketones 2+ H (Negative) Urine Blood Trace H (Negative) Ur Leukocyte Esterase Small H (Negative) Urine RBC 6 H (0-5) /hpf Urine WBC 13 H (0-5) /hpf Urine Bacteria Occasional H (None) /hpf Urine Mucus Few H (None) /hpf Microbiology - Last 24 Hours (Table) 02/11/21 01:22 Blood Culture - Preliminary Blood No Growth after 72 hours 02/11/21 01:22 Blood Culture - Preliminary Blood No Growth after 72 hours 02/13/21 15:06 Urine Culture - Preliminary Urine,Voided 02/11/21 00:25 Urine Culture - Final Urine,Voided Citrobacter freundii Assessment and Plan Plan: Patient is beginning to have bowel function. She did have a large bowel movement last night and did change her ostomy appliance afterwards. She states that her stool is quite thick compared to normal. We will discontinue nasogast leora tube and start the patient on clear liquid diet. The patient is on a bowel regimen including multiple laxatives throughout the day at baseline. We will restart laxatives to the patient's baseline.
[2021-02-14] MEDS: polyethylene glycoL 3350 17 GM POWD.PACK PO SCH ×2 (07:50→20:39)
[2021-02-14 09:54] LABS: HCT 36.9 % (37.2-46.3); HGB 11.8 g/dL (12.0-15.0); MCH 29.6 pg (27.0-32.0); MCV 92.7 fL (80.0-97.0); Mean Platelet Volume 10.9 fL (9.5-12.2); Platelet Count 254 X 10*3/uL (140-440); RBC 3.98 X 10*6/uL (4.10-5.20); RDW 15.1 % (11.5-14.5)
[2021-02-14] MEDS ORDERED: IBUPROFEN 800 MG TAB PO PRN (10:18)
--- NOTE | 2021-02-14 10:35 | P.PN ---
Subjective Principal diagnosis: Partial SBO/Ileus The patient is status post NG tube removal. Small bowel obstruction is resolving with large bowel movement. Patient seems much more controlled this morning. No significant new complaints Objective - Vital Signs Vital signs: Vital Signs Temp 98.7 F 02/14/21 08:00 Pulse 93 02/14/21 08:00 Resp 18 02/14/21 08:00 BP 144/65 02/14/21 08:00 Pulse Ox 96 02/14/21 08:00 Intake & Output 02/13/21 02/14/21 02/14/21 18:59 06:59 18:59 Output Total 1000 675 Balance -1000 -675 Output: Urine 1000 600 Stool 75 Other: Voiding Method Ileal Conduit (Right) Ileal Conduit (Right) Ileal Conduit (Right) # Bowel Movements 1 - Constitutional General appearance: Present: average body habitus - EENT Eyes: Absent: abnormal pupil - Neck Neck: Absent: lymphadenopathy - Respiratory Respiratory: bilateral: CTA - Cardiovascular Rhythm: regular Heart sounds: normal: S1, S2 Abnormal Heart Sounds: Absent: S3 Gallop - Gastrointestinal General gastrointestinal: Present: soft. Absent: tenderness - Integumentary Integumentary: Absent: cellulitis - Labs CBC & Chem 7: 02/14/21 04:51 02/14/21 04:51 Labs: Abnormal Lab Results - Last 24 Hours (Table) 02/13/21 02/14/21 02/14/21 Range/Units 15:06 04:51 04:51 WBC 10.10 H (4.50-10.00) X 10*3/uL RBC 3.98 L (4.10-5.20) X 10*6/uL Hgb 11.8 L (12.0-15.0) g/dL Hct 36.9 L (37.2-46.3) % RDW 15.1 H (11.5-14.5) % Sodium 136 L (137-145) mmol/L Carbon Dioxide 21 L (22-30) mmol/L AST 55 H (14-36) U/L ALT 48 H (4-34) U/L Urine Protein Trace H (Negative) Urine Ketones 2+ H (Negative) Urine Blood Trace H (Negative) Ur Leukocyte Esterase Small H (Negative) Urine RBC 6 H (0-5) /hpf Urine WBC 13 H (0-5) /hpf Urine Bacteria Occasional H (None) /hpf Urine Mucus Few H (None) /hpf Microbiology - Last 24 Hours (Table) 02/11/21 01:22 Blood Culture - Preliminary Blood No Growth after 72 hours 02/11/21 01:22 Blood Culture - Preliminary Blood No Growth after 72 hours 02/13/21 15:06 Urine Culture - Preliminary Urine,Voided 02/11/21 00:25 Urine Culture - Final Urine,Voided Citrobacter freundii Assessment and Plan (1) Small bowel obstruction Current Visit: Yes Status: Acute Code(s): K56.609 - UNSP INTESTNL OBST, UNSP TO PARTIAL VERSUS COMPLETE OBST SNOMED Code(s): 133308193 (2) Abdominal pain Current Visit: No Status: Acute Code(s): R10.9 - UNSPECIFIED ABDOMINAL PAIN SNOMED Code(s): 76479812 (3) Atonic urinary bladder Current Visit: No Status: Acute Code(s): N31.2 - FLACCID NEUROPATHIC BLADDE R, NOT ELSEWHERE CLASSIFIED SNOMED Code(s): 692112386 (4) Colostomy in place Current Visit: No Status: Acute Code(s): Z93.3 - COLOSTOMY STATUS SNOMED Code(s): 578513384 (5) GERD (gastroesophageal reflux disease) Current Visit: No Status: Acute Code(s): K21.9 - GASTRO-ESOPHAGEAL REFLUX DISEASE WITHOUT ESOPHAGITIS SNOMED Code(s): 884243220 (6) History of creation of ostomy Current Visit: No Status: Acute Code(s): Z93.9 - ARTIFICIAL OPENING STATUS, UNSPECIFIED SNOMED Code(s): 750239876 (7) Nausea and vomiting Current Visit: No Status: Acute Code(s): R11.2 - NAUSEA WITH VOMITING, UNSPECIFIED SNOMED Code(s): 83117760 (8) Suprapubic catheter Current Visit: No Status: Acute Code(s): Z93.59 - OTHER CYSTOSTOMY STATUS SNOMED Code(s): 990790104 Plan: NG tube suction has been discontinued the patient seems to be tolerating diet. We'll continue to follow. Anticipate discharge in a.m. Home medications have been reconciled.
[2021-02-14] MEDS: FLUTICASONE 50MCG/SPRAY NASAL 16GM EA NOSTRIL SCH (10:49)
[2021-02-14 14:08] VITALS: BMI 31.8
[2021-02-14] MEDS: GABAPENTIN 400 MG CAP PO SCH ×2 (16:26→20:39)
[2021-02-14] MEDS ORDERED: PANTOPRAZOLE 40 MG TABLET PO SCH (17:30)
[2021-02-14] MEDS: TROSPIUM CHLORIDE 20 MG TABLET PO SCH (20:39)
[2021-02-14] MEDS: buPROPion XL 300 MG TAB.ER.24H PO SCH (20:39)
[2021-02-14] MEDS: MECLIZINE 25 MG TAB PO SCH (20:39)
[2021-02-14] MEDS: LATANOPROST 0.005% OPHTH DROPS 2.5 ML BTL BOTH EYES SCH (20:40)
[2021-02-14] MEDS: CHOLECALCIFEROL 25 MCG (1000 IU) TABLET PO SCH (20:45)
[2021-02-14] MEDS ORDERED: polyethylene glycoL 3350 17 GM POWD.PACK PO SCH (21:00)
[2021-02-15] MEDS: SODIUM CHLORIDE 0.9% 1,000 ML IV SCH (03:22)
[2021-02-15] MEDS: CEFEPIME 1 GM in SODIUM CHLORIDE 0.9% 50 ML IVPB SCH ×2 (05:40→17:50)
[2021-02-15] MEDS: LEVOTHYROXINE 100 MCG TAB PO SCH (05:40)
[2021-02-15] MEDS: TROSPIUM CHLORIDE 20 MG TABLET PO SCH ×2 (08:02→21:19)
[2021-02-15] MEDS: PANTOPRAZOLE 40 MG/10 ML VIAL IVP SCH (08:02)
[2021-02-15] MEDS: GABAPENTIN 400 MG CAP PO SCH ×3 (08:02→21:18)
[2021-02-15] MEDS: polyethylene glycoL 3350 17 GM POWD.PACK PO SCH ×2 (08:02→21:18)
[2021-02-15] MEDS: MULTIVITAMINS, THERA 1 EACH TAB PO SCH (08:02)
[2021-02-15] MEDS: MECLIZINE 25 MG TAB PO SCH ×2 (08:02→21:18)
[2021-02-15] MEDS: KETOTIFEN 0.025% OPHTH DROPS 5 ML BTL BOTH EYES SCH ×2 (08:04→21:18)
[2021-02-15] MEDS: FLUTICASONE 50MCG/SPRAY NASAL 16GM EA NOSTRIL SCH (08:04)
[2021-02-15] MEDS ORDERED: NON FORMULARY DRUG (Vitamin B Complex [Vitamin B Complex] 1 EACH Capsule) PO SCH (09:00)
--- NOTE | 2021-02-15 11:44 | P.PN ---
Subjective Progress Note Date: 02/15/21 Patient having minimal output with some gas, no NV Objective - Vital Signs Vital signs: Vital Signs Temp 97.3 F L 02/15/21 07:45 Pulse 81 02/15/21 07:45 Resp 16 02/15/21 07:45 BP 122/69 02/15/21 07:45 Pulse Ox 95 02/15/21 07:45 Intake & Output 02/14/21 02/15/21 02/15/21 18:59 06:59 18:59 Output Total 1400 1500 Balance -1400 -1500 Weight 81.647 kg Output: Urine 1400 1500 Other: Voiding Method Ileal Conduit (Right) Indwelling Catheter # Bowel Movements 0 - Constitutional General appearance: Present: cooperative - Cardiovascular Rhythm: regular - Gastrointestinal Gastrointestinal Comment(s): S/NT/ND minimal gas and stool in bag - Labs CBC & Chem 7: 02/14/21 04:51 02/14/21 04:51 Labs: Microbiology - Last 24 Hours (Table) 02/11/21 01:22 Blood Culture - Preliminary Blood No Growth after 96 hours 02/11/21 01:22 Blood Culture - Preliminary Blood No Growth after 96 hours 02/13/21 15:06 Urine Culture - Preliminary Urine,Voided Gram Neg Bacilli Assessment and Plan Assessment: SBO Plan: advance diet to fulls as tolerated
[2021-02-15 14:56] LABS: ALT 57 U/L (4-34); AST 68 U/L (14-36); African American GFR (CKD) >90 (>60 ml/min/1.73 sqM); Albumin 4.2 g/dL (3.5-5.0); Albumin/Globulin Ratio 1.6; Alkaline Phosphatase 108 U/L (38-126); Anion Gap 11 mmol/L; Blood Urea Nitrogen 9 mg/dL (7-17); Calcium 10.1 mg/dL (8.4-10.2); Carbon Dioxide 22 mmol/L (22-30); Chloride 106 mmol/L (98-107); Globulin 2.6 g/dL; Glucose 137 mg/dL (74-99); Non-African American GFR(CKD) >90 (>60 ml/min/1.73 sqM); Potassium 3.8 mmol/L (3.5-5.1); Sodium 139 mmol/L (137-145); Total Bilirubin 0.2 mg/dL (0.2-1.3); Total Protein 6.8 g/dL (6.3-8.2)
--- NOTE | 2021-02-15 16:43 | PN ---
PROGRESS NOTE I am covering for Dr. Pressley. DATE OF SERVICE: 02/15/2021 This 65-year-old woman who was admitted with acute partial small-bowel obstruction had the NG tube taken out. Surgery is following the patient closely. No fever. No cough. PHYSICAL EXAMINATION: Alert and oriented x3. Pulse 93, blood pressure 110/71, respiration 18, temperature 97.3, pulse ox 98% on room air HEENT: Conjunctivae normal. NECK: No jugular venous distention. CARDIOVASCULAR SYSTEM: S1, S2 muffled. RESPIRATORY: Breath sounds diminished at the bases. No rhonchi. No crackles. ABDOMEN: Soft, nontender. NERVOUS SYSTEM: No focal deficit. LAB STUDIES: WBC 10.1, hemoglobin 11.3. Sodium 136. ASSESSMENT: 1. Acute small-bowel obstruction, on conservative line of treatment. 2. Abdominal pain. 3. Atonic urinary bladder. 4. Colostomy. 5. Gastroesophageal reflux disease. 6. Nausea and vomiting. 7. Suprapubic catheter. 8. Mild hyponatremia. 9. Elevated AST, ALT. 10.Elevated white cell count. 11.Anemia, normocytic. 12.History of fibromyalgia. 13.History of gastroesophageal reflux disease. 14.History of degenerative joint disease. 15.History of pneumonia. 16.History of adenoidectomy. 17.History of cholecystectomy. 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 RECOMMENDATIONS AND DISCUSSION: In this 65-year-old woman who presented with multiple complex medical issues, we will monitor the patient closely, continue the current medications. Patient is on empiric antibiotics. I recommend repeat labs in the morning. Check C difficile if there is any persistent diarrhea. Otherwise, closely follow with Surgery. Full liquid diet currently. Further recommendations to follow. MMODL / IJN: [id number] /
[2021-02-15] MEDS: buPROPion XL 300 MG TAB.ER.24H PO SCH (21:18)
[2021-02-15] MEDS: CHOLECALCIFEROL 25 MCG (1000 IU) TABLET PO SCH (21:18)
[2021-02-15] MEDS: LATANOPROST 0.005% OPHTH DROPS 2.5 ML BTL BOTH EYES SCH (21:19)
[2021-02-16] MEDS: SODIUM CHLORIDE 0.9% 1,000 ML IV SCH ×2 (01:10→03:00)
[2021-02-16] MEDS: LEVOTHYROXINE 100 MCG TAB PO SCH (06:07)
[2021-02-16] MEDS: CEFEPIME 1 GM in SODIUM CHLORIDE 0.9% 50 ML IVPB SCH ×2 (06:07→18:05)
[2021-02-16] MEDS: PANTOPRAZOLE 40 MG/10 ML VIAL IVP SCH (08:14)
[2021-02-16] MEDS: polyethylene glycoL 3350 17 GM POWD.PACK PO SCH ×2 (08:14→21:09)
[2021-02-16] MEDS: GABAPENTIN 400 MG CAP PO SCH ×3 (08:14→21:09)
[2021-02-16] MEDS: TROSPIUM CHLORIDE 20 MG TABLET PO SCH ×2 (08:14→21:09)
[2021-02-16] MEDS: MULTIVITAMINS, THERA 1 EACH TAB PO SCH (08:14)
[2021-02-16] MEDS: MECLIZINE 25 MG TAB PO SCH ×2 (08:14→21:09)
[2021-02-16] MEDS: KETOTIFEN 0.025% OPHTH DROPS 5 ML BTL BOTH EYES SCH ×2 (08:15→21:10)
[2021-02-16] MEDS: FLUTICASONE 50MCG/SPRAY NASAL 16GM EA NOSTRIL SCH (08:15)
--- NOTE | 2021-02-16 10:31 | P.PN ---
Subjective Progress Note Date: 02/16/21 Patient having minimal output with some gas, no NV Objective - Vital Signs Vital signs: Vital Signs Temp 98.1 F 02/16/21 08:00 Pulse 79 02/16/21 08:00 Resp 16 02/16/21 08:00 BP 120/72 02/16/21 08:00 Pulse Ox 96 02/16/21 08:00 Intake & Output 02/15/21 02/16/21 02/16/21 18:59 06:59 18:59 Output Total 3100 2200 Balance -3100 -2200 Output: Urine 3100 2200 Other: Voiding Method Indwelling Catheter # Bowel Movements 0 - Constitutional General appearance: Present: cooperative - Cardiovascular Rhythm: regular - Gastrointestinal Gastrointestinal Comment(s): S/NT ostomy pink and patent minimal stool and gas in bag - Labs CBC & Chem 7: 02/14/21 04:51 02/15/21 14:23 Labs: Abnormal Lab Results - Last 24 Hours (Table) 02/15/21 Range/Units 14:23 Glucose 137 H (74-99) mg/dL AST 68 H (14-36) U/L ALT 57 H (4-34) U/L Microbiology - Last 24 Hours (Table) 02/11/21 01:22 Blood Culture - Preliminary Blood No Growth after 120 hours 02/11/21 01:22 Blood Culture - Preliminary Blood No Growth after 120 hours 02/13/21 15:06 Urine Culture - Final Urine,Voided Citrobacter freundii Assessment and Plan Assessment: SBO Plan: advance diet to soft as tolerated
[2021-02-16 11:12] LABS: Basophils # (A) 0.03 X 10*3/uL (0.00-0.10); Basophils % (A) 0.3 %; Eosinophils # (A) 0.14 X 10*3/uL (0.04-0.35); Eosinophils % (A) 1.5 %; Lymphocytes # (A) 3.09 X 10*3/uL (0.90-5.00); Lymphocytes % (A) 33.7 %; MCH 30.2 pg (27.0-32.0); MCHC 32.4 g/dL (32.0-37.0); MCV 93.2 fL (80.0-97.0); Mean Platelet Volume 10.8 fL (9.5-12.2); Monocytes # (A) 0.85 X 10*3/uL (0.20-1.00); Monocytes % (A) 9.3 %; Neutrophils # (A) 4.86 X 10*3/uL (1.80-7.70); Neutrophils % (A) 53.1 %; Platelet Count 296 X 10*3/uL (140-440); RBC 3.97 X 10*6/uL (4.10-5.20); RDW 15.4 % (11.5-14.5); WBC 9.16 X 10*3/uL (4.50-10.00)
--- NOTE | 2021-02-16 14:02 | PN ---
PROGRESS NOTE DATE OF SERVICE: 02/16/2021 This 65-year-old woman admitted with acute partial small-bowel obstruction is on medical treatment. No chest pain. No palpitations. No fever. Dr. Marley is following the patient closely. PHYSICAL EXAMINATION: Alert and oriented x3. Pulse 79, blood pressure 120/72, respirations 16, temperature 98.1, pulse ox 98% on room air. HEENT: Conjunctivae normal. Neck: No JVD. Cardiovascular: S1, S2 muffled. Respiratory: Breath sounds diminished in the bases. No rhonchi. No crackles. Abdomen: Soft. No distention. Nontender. No mass palpable. Colostomy present. Nervous system: No focal deficits. LABS: WBC is 9.1, hemoglobin is 12. ASSESSMENT: 1. Acute bowel obstruction on conservative line of treatment. 2. Abdominal pain. 3. Acute urinary tract infection with Citrobacter freundii. 4. Colostomy. 5. Gastroesophageal reflux disease. 6. Nausea, vomiting. 7. Suprapubic catheter. 8. Mild hyponatremia. 9. Elevated AST/ALT. 10.Elevated WBC. 11.Anemia, normocytic. 12.History of fibromyalgia. 13.History of gastroesophageal reflux disease. 14.History of degenerative joint disease. 15.History of pneumonia. 16.History of adenoidectomy. 17.History of cholecystectomy. 18.History of proctosigmoiditis previously. RECOMMENDATIONS AND DISCUSSION: Recommend to continue current medications, and symptomatic treatment. Otherwise, at this time, I recommend continue with empiric antibiotics. The patient is on Cefepime currently. Closely follow with surgery. Continue with conservative line of management. Guarded prognosis. Further recommendations to follow. MMODL / IJN: [id number] /
[2021-02-16] MEDS: buPROPion XL 300 MG TAB.ER.24H PO SCH (21:09)
[2021-02-16] MEDS: CHOLECALCIFEROL 25 MCG (1000 IU) TABLET PO SCH (21:09)
[2021-02-16] MEDS: LATANOPROST 0.005% OPHTH DROPS 2.5 ML BTL BOTH EYES SCH (21:10)
[2021-02-16] MEDS: oxyCODONE-APAP 5-325MG 1 EACH TAB PO PRN (22:12)
[2021-02-17] MEDS: SODIUM CHLORIDE 0.9% 1,000 ML IV SCH ×3 (02:05→20:07)
[2021-02-17] MEDS: CEFEPIME 1 GM in SODIUM CHLORIDE 0.9% 50 ML IVPB SCH ×2 (05:59→17:36)
[2021-02-17] MEDS: LEVOTHYROXINE 100 MCG TAB PO SCH (05:59)
[2021-02-17] MEDS: FLUTICASONE 50MCG/SPRAY NASAL 16GM EA NOSTRIL SCH (07:04)
[2021-02-17] MEDS: MULTIVITAMINS, THERA 1 EACH TAB PO SCH (07:04)
[2021-02-17] MEDS: GABAPENTIN 400 MG CAP PO SCH ×3 (07:04→21:22)
[2021-02-17] MEDS: MECLIZINE 25 MG TAB PO SCH ×2 (07:04→20:09)
[2021-02-17] MEDS: PANTOPRAZOLE 40 MG/10 ML VIAL IVP SCH (07:05)
[2021-02-17] MEDS: polyethylene glycoL 3350 17 GM POWD.PACK PO SCH ×2 (07:05→20:04)
[2021-02-17] MEDS: KETOTIFEN 0.025% OPHTH DROPS 5 ML BTL BOTH EYES SCH ×2 (07:05→20:29)
[2021-02-17] MEDS: TROSPIUM CHLORIDE 20 MG TABLET PO SCH ×2 (07:06→20:09)
[2021-02-17] MEDS ORDERED: ALBUTEROL NEBULIZED 2.5 MG/3 ML INHALATION PRN (08:13)
--- NOTE | 2021-02-17 08:13 | P.PN ---
Subjective Principal diagnosis: Partial SBO/Ileus The patient is status post NG tube removal. Small bowel obstruction is resolving with large bowel movement. However, no BMs since. Good bowel sounds and flatus are noted. Her appetite seems to be nominal. The patient is resting comfortably. Patient seems much more controlled this morning. No significant new complaints Objective - Vital Signs Vital signs: Vital Signs Temp 97.9 F 02/17/21 02:00 Pulse 80 02/17/21 02:00 Resp 18 02/17/21 02:00 BP 124/75 02/17/21 02:00 Pulse Ox 96 02/17/21 02:00 Intake & Output 02/16/21 02/17/21 02/17/21 18:59 06:59 18:59 Output Total 2800 4475 Balance -2800 -4475 Output: Urine 2800 4400 Stool 75 Other: Voiding Method Indwelling Catheter # Bowel Movements 0 - Constitutional General appearance: Present: no acute distress - EENT Eyes: Absent: abnormal pupil - Neck Neck: Absent: lymphadenopathy - Respiratory Respiratory: bilateral: CTA - Cardiovascular Rhythm: regular Heart sounds: normal: S1, S2 Abnormal Heart Sounds: Absent: S3 Gallop - Gastrointestinal General gastrointestinal: Present: distended, soft. Absent: tenderness - Neurologic Neurologic: Present: CNII-XII intact - Labs CBC & Chem 7: 02/16/21 05:16 02/15/21 14:23 Labs: Abnormal Lab Results - Last 24 Hours (Table) 02/16/21 Range/Units 05:16 RBC 3.97 L (4.10-5.20) X 10*6/uL Hct 37.0 L (37.2-46.3) % RDW 15.4 H (11.5-14.5) % Immature Gran # 0.19 H (0.00-0.04) X 10*3/uL Microbiology - Last 24 Hours (Table) 02/11/21 01:22 Blood Culture - Final Blood No Growth after 144 hours 02/11/21 01:22 Blood Culture - Final Blood No Growth after 144 hours Assessment and Plan (1) Small bowel obstruction Current Visit: Yes Status: Acute Code(s): K56.609 - UNSP INTESTNL OBST, UNSP TO PARTIAL VERSUS COMPLETE OBST SNOMED Code(s): 683663460 (2) Abdominal pain Current Visit: No Status: Acute Code(s): R10.9 - UNSPECIFIED ABDOMINAL PAIN SNOMED Code(s): 12678020 (3) Atonic urinary bladder Current Visit: No Status: Acute Code(s): N31.2 - FLACCID NEUROPATHIC BLADDER, NOT ELSEWHERE CLASSIFIED SNOMED Code(s): 043989099 (4) Colostomy in place Current Visit: No Status: Acute Code(s): Z93.3 - COLOSTOMY STATUS SNOMED Code(s): 441948386 (5) GERD (gastroesophageal reflux disease) Current Visit: No Status: Acute Code(s): K21.9 - GASTRO-ESOPHAGEAL REFLUX DISEASE WITHOUT ESOPHAGITIS SNOMED Code(s): 492972041 (6) History of creation of ostomy Current Visit: No Status: Acute Code(s): Z93.9 - ARTIFICIAL OPENING STATUS, UNSPECIFIED SNOMED Code(s): 705797252 (7) Nausea and vomiting Current Visit: No Status: Acute Code(s): R11.2 - NAUSEA WITH VOMITING, UNSPECIFIED SNOMED Code(s): 72239655 (8) Suprapubic catheter Current Visit: No Status: Acute Code(s): Z93.59 - OTHER CYSTOSTOMY STATUS SNOMED Code(s): 550251659 Plan: Await further bowel movement. Otherwise clinically stable. Appreciate surgical input. Anticipate discharge soon.
--- NOTE | 2021-02-17 12:25 | P.PN ---
Subjective Progress Note Date: 02/17/21 Patient having minimal output with some gas, no NV Objective - Vital Signs Vital signs: Vital Signs Temp 98.1 F 02/17/21 10:10 Pulse 94 02/17/21 10:10 Resp 18 02/17/21 10:10 BP 137/83 02/17/21 10:10 Pulse Ox 96 02/17/21 10:10 Intake & Output 02/16/21 02/17/21 02/17/21 18:59 06:59 18:59 Output Total 2800 4475 Balance -2800 -4475 Weight 81.647 kg Output: Urine 2800 4400 Stool 75 Other: Voiding Method Indwelling Catheter Indwelling Catheter # Bowel Movements 0 - Constitutional General appearance: Present: cooperative - Gastrointestinal Gastrointestinal Comment(s): S/NT/ND gas in bag - Labs CBC & Chem 7: 02/16/21 05:16 02/15/21 14:23 Labs: Microbiology - Last 24 Hours (Table) 02/11/21 01:22 Blood Culture - Final Blood No Growth after 144 hours 02/11/21 01:22 Blood Culture - Final Blood No Growth after 144 hours Assessment and Plan Assessment: SBO Plan: Diet as tolerated no plans for surgery, contact directly with any further concerns
[2021-02-17] MEDS: CHOLECALCIFEROL 25 MCG (1000 IU) TABLET PO SCH (20:04)
[2021-02-17] MEDS: buPROPion XL 300 MG TAB.ER.24H PO SCH (20:09)
[2021-02-17] MEDS: LATANOPROST 0.005% OPHTH DROPS 2.5 ML BTL BOTH EYES SCH (20:29)
[2021-02-17] MEDS: oxyCODONE-APAP 5-325MG 1 EACH TAB PO PRN (20:29)
[2021-02-18] MEDS: HYDROmorphone 0.5 MG/0.5 ML SYRINGE IVP PRN ×4 (05:05→19:58)
[2021-02-18] MEDS: CEFEPIME 1 GM in SODIUM CHLORIDE 0.9% 50 ML IVPB SCH ×2 (05:06→18:37)
[2021-02-18] MEDS: LEVOTHYROXINE 100 MCG TAB PO SCH (05:36)
--- NOTE | 2021-02-18 08:11 | P.PN ---
Subjective Principal diagnosis: Partial SBO/Ileus The patient is status post NG tube removal. However, the patient has had no significant bowel movement since Wednesday and is now bloating. I suspect she might need reinsertion of NG tube. Appreciate multiple consultants input Objective - Vital Signs Vital signs: Vital Signs Temp 98.2 F 02/18/21 01:10 Pulse 92 02/18/21 01:10 Resp 16 02/18/21 01:10 BP 118/68 02/18/21 01:10 Pulse Ox 96 02/18/21 01:10 Intake & Output 02/17/21 02/18/21 02/18/21 18:59 06:59 18:59 Intake Total 462 Output Total 1999 1999 Balance -1999 -1538 Weight 81.647 kg Intake: Oral 462 Output: Urine 1999 1999 Other: Voiding Method Indwelling Catheter Indwelling Catheter - Constitutional General appearance: Present: no acute distress - EENT Eyes: Absent: abnormal pupil - Neck Neck: Absent: lymphadenopathy - Respiratory Respiratory: bilateral: diminished - Cardiovascular Rhythm: regular Heart sounds: normal: S1, S2 Abnormal Heart Sounds: Absent: S3 Gallop - Gastrointestinal General gastrointestinal: Present: distended, normal bowel sounds - Integumentary Integumentary: Absent: cellulitis - Labs CBC & Chem 7: 02/16/21 05:16 02/15/21 14:23 Assessment and Plan (1) Small bowel obstruction Current Visit: Yes Status: Acute Code(s): K56.609 - UNSP INTESTNL OBST, UNSP TO PARTIAL VERSUS COMPLETE OBST SNOMED Code(s): 933482046 (2) Abdominal pain Current Visit: No Status: Acute Code(s): R10.9 - UNSPECIFIED ABDOMINAL PAIN SNOMED Code(s): 20685214 (3) Atonic urinary bladder Current Visit: No Status: Acute Code(s): N31.2 - FLACCID NEUROPATHIC BL ADDER, NOT ELSEWHERE CLASSIFIED SNOMED Code(s): 673746443 (4) Colostomy in place Current Visit: No Status: Acute Code(s): Z93.3 - COLOSTOMY STATUS SNOMED Code(s): 907916691 (5) GERD (gastroesophageal reflux disease) Current Visit: No Status: Acute Code(s): K21.9 - GASTRO-ESOPHAGEAL REFLUX DISEASE WITHOUT ESOPHAGITIS SNOMED Code(s): 039839067 (6) History of creation of ostomy Current Visit: No Status: Acute Code(s): Z93.9 - ARTIFICIAL OPENING STATUS, UNSPECIFIED SNOMED Code(s): 962459583 (7) Nausea and vomiting Current Visit: No Status: Acute Code(s): R11.2 - NAUSEA WITH VOMITING, UNSPECIFIED SNOMED Code(s): 49141802 (8) Suprapubic catheter Current Visit: No Status: Acute Code(s): Z93.59 - OTHER CYSTOSTOMY STATUS SNOMED Code(s): 226587157 Plan: Keep nothing by mouth for now. Question need for Reglan. Reinsertion NG tube is possibility and the patient does understand this. Defer to surgery/GI I suspect computed tomography scan might be beneficial if she does not slowly start resolving and have continued normal bowel movement.
[2021-02-18] MEDS: FLUTICASONE 50MCG/SPRAY NASAL 16GM EA NOSTRIL SCH (08:49)
[2021-02-18] MEDS: polyethylene glycoL 3350 17 GM POWD.PACK PO SCH ×2 (08:49→21:27)
[2021-02-18] MEDS: KETOTIFEN 0.025% OPHTH DROPS 5 ML BTL BOTH EYES SCH ×2 (08:50→20:03)
[2021-02-18] MEDS: TROSPIUM CHLORIDE 20 MG TABLET PO SCH ×2 (08:51→21:27)
[2021-02-18] MEDS: MULTIVITAMINS, THERA 1 EACH TAB PO SCH (08:51)
[2021-02-18] MEDS: PANTOPRAZOLE 40 MG/10 ML VIAL IVP SCH (08:51)
[2021-02-18] MEDS: MECLIZINE 25 MG TAB PO SCH ×2 (08:51→21:27)
[2021-02-18] MEDS: GABAPENTIN 400 MG CAP PO SCH ×3 (08:51→21:28)
[2021-02-18] MEDS: ONDANSETRON 4 MG/2 ML VIAL IVP PRN ×2 (09:03→19:58)
--- NOTE | 2021-02-18 13:10 | P.PN ---
Subjective Progress Note Date: 02/18/21 Distended with nausea today Minimal output from ostomy, some stool at os Objective - Vital Signs Vital signs: Vital Signs Temp 98.4 F 02/18/21 08:27 Pulse 93 02/18/21 08:27 Resp 18 02/18/21 08:27 BP 143/80 02/18/21 08:27 Pulse Ox 95 02/18/21 08:27 Intake & Output 02/17/21 02/18/21 02/18/21 18:59 06:59 18:59 Intake Total 462 Output Total 1999 1999 Balance -1999 -153 Weight 81.647 kg Intake: Oral 462 Output: Urine 1999 1999 Other: Voiding Method Indwelling Catheter Indwelling Catheter - Constitutional General appearance: Present: cooperative - Cardiovascular Rhythm: regular - Gastrointestinal Gastrointestinal Comment(s): S/NT/distended ostomy pink patent with some stool at os no gas in bag - Labs CBC & Chem 7: 02/16/21 05:16 02/15/21 14:23 Assessment and Plan Assessment: SBO Plan: NPO, NGT to LIS today. Await further bowel function.
[2021-02-18] MEDS: SODIUM CHLORIDE 0.9% 1,000 ML IV SCH (16:08)
[2021-02-18] MEDS: DEXTROSE 5%-0.45% NACL 1,000 ML IV SCH (18:36)
[2021-02-18] MEDS: LATANOPROST 0.005% OPHTH DROPS 2.5 ML BTL BOTH EYES SCH (20:03)
[2021-02-18] MEDS: CHOLECALCIFEROL 25 MCG (1000 IU) TABLET PO SCH (21:27)
[2021-02-18] MEDS: buPROPion XL 300 MG TAB.ER.24H PO SCH (21:27)
[2021-02-18] MEDS: METOCLOPRAMIDE 5 MG/ML 2 ML VIAL IVP SCH (23:15)
[2021-02-19] MEDS: HYDROmorphone 0.5 MG/0.5 ML SYRINGE IVP PRN ×4 (02:26→20:53)
[2021-02-19] MEDS: ONDANSETRON 4 MG/2 ML VIAL IVP PRN ×2 (04:16→15:42)
[2021-02-19] MEDS: LEVOTHYROXINE 100 MCG TAB PO SCH (05:47)
[2021-02-19] MEDS: PANTOPRAZOLE 40 MG/10 ML VIAL IVP SCH (05:54)
[2021-02-19] MEDS: CEFEPIME 1 GM in SODIUM CHLORIDE 0.9% 50 ML IVPB SCH (05:54)
[2021-02-19] MEDS: METOCLOPRAMIDE 5 MG/ML 2 ML VIAL IVP SCH ×3 (05:54→18:18)
[2021-02-19 06:42] LABS: Anisocytosis Slight; HCT 38.6 % (34.0-46.0); HGB 12.6 gm/dL (11.4-16.0); Hypochromasia Slight; MCH 30.9 pg (25.0-35.0); MCHC 32.7 g/dL (31.0-37.0); MCV 94.5 fL (80.0-100.0); Platelet Count 291 k/uL (150-450); RBC 4.09 m/uL (3.80-5.40); RDW 16.1 % (11.5-15.5); WBC 8.5 k/uL (3.8-10.6)
[2021-02-19 06:51] LABS: ALT 38 U/L (4-34); AST 38 U/L (14-36); African American GFR (CKD) >90 (>60 ml/min/1.73 sqM); Albumin 3.9 g/dL (3.5-5.0); Alkaline Phosphatase 118 U/L (38-126); Anion Gap 10 mmol/L; Blood Urea Nitrogen 12 mg/dL (7-17); Calcium 9.7 mg/dL (8.4-10.2); Carbon Dioxide 22 mmol/L (22-30); Chloride 106 mmol/L (98-107); Glucose 116 mg/dL (74-99); Non-African American GFR(CKD) 88 (>60 ml/min/1.73 sqM); Potassium 3.9 mmol/L (3.5-5.1); Sodium 138 mmol/L (137-145); Total Bilirubin 0.5 mg/dL (0.2-1.3); Total Protein 6.5 g/dL (6.3-8.2)
[2021-02-19] MEDS: DEXTROSE 5%-0.45% NACL 1,000 ML IV SCH ×2 (09:50→20:02)
[2021-02-19] MEDS: HEPARIN SODIUM,PORCINE/PF 5,000 UNIT/0.5 ML SYRINGE SQ SCH ×2 (09:50→20:02)
[2021-02-19] MEDS: KETOTIFEN 0.025% OPHTH DROPS 5 ML BTL BOTH EYES SCH ×2 (09:51→20:03)
[2021-02-19] MEDS: FLUTICASONE 50MCG/SPRAY NASAL 16GM EA NOSTRIL SCH (09:52)
[2021-02-19] MEDS: MECLIZINE 25 MG TAB PO SCH ×2 (10:02→20:07)
[2021-02-19] MEDS: TROSPIUM CHLORIDE 20 MG TABLET PO SCH ×2 (10:02→20:07)
[2021-02-19] MEDS: polyethylene glycoL 3350 17 GM POWD.PACK PO SCH ×2 (10:02→20:07)
[2021-02-19] MEDS: GABAPENTIN 400 MG CAP PO SCH ×3 (10:02→20:07)
[2021-02-19] MEDS: MULTIVITAMINS, THERA 1 EACH TAB PO SCH (10:02)
--- NOTE | 2021-02-19 13:37 | P.PN ---
Subjective Principal diagnosis: Partial SBO/Ileus The patient is status post NG tube removal. However, the patient has had no significant bowel movement since Wednesday and is now bloating. NG tube Is now reinserted. Appreciate multiple consultants input. Objective - Vital Signs Vital signs: Vital Signs Temp 97.8 F 02/19/21 08:23 Pulse 88 02/19/21 08:23 Resp 18 02/19/21 08:23 BP 120/73 02/19/21 08:23 Pulse Ox 95 02/19/21 08:23 Intake & Output 02/18/21 02/19/21 02/19/21 18:59 06:59 18:59 Intake Total 30 Output Total 1250 Balance 30 -1250 Intake: Tube Feeding 30 Output: Gastric Drainage 300 Urine 950 Other: Voiding Method Indwelling Catheter - Constitutional General appearance: Present: no acute distress - EENT Eyes: Absent: abnormal pupil - Respiratory Respiratory: bilateral: CTA - Cardiovascular Rhythm: regular Heart sounds: normal: S1, S2 Abnormal Heart Sounds: Absent: S3 Gallop - Gastrointestinal General gastrointestinal: Present: normal bowel sounds, soft - Neurologic Neurologic: Present: CNII-XII intact - Psychiatric Psychiatric: Present: A&O x's 3, appropriate affect, intact judgment & insight - Labs CBC & Chem 7: 02/19/21 06:29 02/19/21 06:29 Labs: Abnormal Lab Results - Last 24 Hours (Table) 02/19/21 02/19/21 Range/Units 06:29 06:29 RDW 16.1 H (11.5-15.5) % Glucose 116 H (74-99) mg/dL AST 38 H (14-36) U/L ALT 38 H (4-34) U/L Assessment and Plan (1) Small bowel obstruction Current Visit: Yes Status: Acute Code(s): K56.609 - UNSP INTESTNL OBST, UNSP TO PARTIAL VERSUS COMPLETE OBST SNOMED Code(s): 041021048 (2) Abdominal pain Current Visit: No Status: Acute Code(s): R10.9 - UNSPECIFIED ABDOMINAL PAIN SNOMED Code(s): 20325207 (3) Atonic urinary bladder Current Visit: No Status: Acute Code(s): N31.2 - FLACCID NEUROPATHIC BLADDER, NOT ELSEWHERE CLASSIFIED SNOMED Code(s): 629366196 (4) Colostomy in place Current Visit: No Status: Acute Code(s): Z93.3 - COLOSTOMY STATUS SNOMED Code(s): 461574653 (5) GERD (gastroesophageal reflux disease) Current Visit: No Status: Acute Code(s): K21.9 - GASTRO-ESOPHAGEAL REFLUX DISEASE WITHOUT ESOPHAGITIS SNOMED Code(s): 774058759 (6) History of creation of ostomy Current Visit: No Status: Acute Code(s): Z93.9 - ARTIFICIAL OPENING STATUS, UNSPECIFIED SNOMED Code(s): 215045212 (7) Nausea and vomiting Current Visit: No Status: Acute Code(s): R11.2 - NAUSEA WITH VOMITING, UNSPECIFIED SNOMED Code(s): 03951525 (8) Suprapubic catheter Current Visit: No Status: Acute Code(s): Z93.59 - OTHER CYSTOSTOMY STATUS SNOMED Code(s): 850045192 Plan: The patient will continue NG tube suction. Await appropriate bowel movement. Keep nothing by mouth at this time. UTI. She is had 7 days of Maxipime. Intermediate resistance is noted. Continue current regimen or treatment otherwise. Consider repeat CT scan if still no appropriate bowel movement.
--- NOTE | 2021-02-19 15:49 | P.PN ---
Subjective Progress Note Date: 02/19/21 Feeling bloated per patient Minimal output from ostomy NGT in place Objective - Vital Signs Vital signs: Vital Signs Temp 97.9 F 02/19/21 14:19 Pulse 82 02/19/21 14:19 Resp 18 02/19/21 14:19 BP 122/75 02/19/21 14:19 Pulse Ox 94 L 02/19/21 14:19 Intake & Output 02/18/21 02/19/21 02/19/21 18:59 06:59 18:59 Intake Total 30 Output Total 1250 Balance 30 -1250 Intake: Tube Feeding 30 Output: Gastric Drainage 300 Urine 950 Other: Voiding Method Indwelling Catheter - Constitutional General appearance: Present: cooperative - Cardiovascular Rhythm: regular - Gastrointestinal Gastrointestinal Comment(s): S/Distended, nontender ostomy patent with some stool at os, no gas - Labs CBC & Chem 7: 02/19/21 06:29 02/19/21 06:29 Labs: Abnormal Lab Results - Last 24 Hours (Table) 02/19/21 02/19/21 Range/Units 06:29 06:29 RDW 16.1 H (11.5-15.5) % Glucose 116 H (74-99) mg/dL AST 38 H (14-36) U/L ALT 38 H (4-34) U/L Assessment and Plan Assessment: SBO Plan: NPO, NGT to LIS. Await further bowel function. Will consider CT with PO and IV contrast if patient does not improve
[2021-02-19] MEDS: LATANOPROST 0.005% OPHTH DROPS 2.5 ML BTL BOTH EYES SCH (20:02)
[2021-02-19] MEDS: CHOLECALCIFEROL 25 MCG (1000 IU) TABLET PO SCH (20:07)
[2021-02-19] MEDS: buPROPion XL 300 MG TAB.ER.24H PO SCH (20:07)
[2021-02-20] MEDS: METOCLOPRAMIDE 5 MG/ML 2 ML VIAL IVP SCH ×5 (00:26→23:33)
[2021-02-20] MEDS: LEVOTHYROXINE 100 MCG TAB PO SCH (05:55)
[2021-02-20] MEDS: GABAPENTIN 400 MG CAP PO SCH ×3 (08:05→19:38)
[2021-02-20] MEDS: polyethylene glycoL 3350 17 GM POWD.PACK PO SCH ×2 (08:06→19:37)
[2021-02-20] MEDS: MULTIVITAMINS, THERA 1 EACH TAB PO SCH (08:06)
[2021-02-20] MEDS: MECLIZINE 25 MG TAB PO SCH ×2 (08:06→19:37)
[2021-02-20] MEDS: TROSPIUM CHLORIDE 20 MG TABLET PO SCH ×2 (08:06→19:37)
[2021-02-20] MEDS: FLUTICASONE 50MCG/SPRAY NASAL 16GM EA NOSTRIL SCH (08:30)
[2021-02-20] MEDS: KETOTIFEN 0.025% OPHTH DROPS 5 ML BTL BOTH EYES SCH ×2 (08:30→20:44)
[2021-02-20] MEDS: HEPARIN SODIUM,PORCINE/PF 5,000 UNIT/0.5 ML SYRINGE SQ SCH ×2 (08:31→20:45)
[2021-02-20] MEDS: PANTOPRAZOLE 40 MG/10 ML VIAL IVP SCH (08:31)
--- NOTE | 2021-02-20 09:01 | P.PN ---
Subjective Principal diagnosis: Partial SBO/Ileus The patient is status post NG tube replacement. However, the patient has had no significant bowel movement since Wednesday and is now bloating. NG tube Is now reinserted. Appreciate multiple consultants input. Objective - Vital Signs Vital signs: Vital Signs Temp 98 F 02/20/21 01:31 Pulse 88 02/20/21 01:31 Resp 16 02/20/21 01:31 BP 125/74 02/20/21 01:31 Pulse Ox 93 L 02/20/21 01:31 Intake & Output 02/19/21 02/20/21 02/20/21 18:59 06:59 18:59 Intake Total 30 900 Output Total 475 1000 150 Balance -445 -100 -150 Intake: Intake, IV Titration 900 Amount Dextrose 5%-0.45% NaCl 1, 900 000 ml @ 75 mls/hr IV . [id number] [facility] Rx#:[id number] Oral 30 Output: Urine 475 1000 Stool 150 - Constitutional General appearance: Present: average body habitus - EENT Eyes: Absent: abnormal pupil - Neck Neck: Absent: lymphadenopathy - Respiratory Respiratory: bilateral: CTA - Cardiovascular Rhythm: regular Heart sounds: normal: S1, S2 Abnormal Heart Sounds: Absent: S3 Gallop - Gastrointestinal General gastrointestinal: Present: soft. Absent: tenderness - Psychiatric Psychiatric: Present: A&O x's 3 - Labs CBC & Chem 7: 02/19/21 06:29 02/19/21 06:29 Assessment and Plan (1) Small bowel obstruction Current Visit: Yes Status: Acute Code(s): K56.609 - UNSP INTESTNL OBST, UNSP TO PARTIAL VERSUS COMPLETE OBST SNOMED Code(s): 077734363 (2) Abdominal pain Current Visit: No Status: Acute Code(s): R10.9 - UNSPECIFIED ABDOMINAL PAIN SNOMED Code(s): 65329855 (3) Atonic urinary bladder Current Visit: No Status: Acute Code(s): N31.2 - FLACCID NEUROPATHIC BLADDER, NOT ELSEWHERE CLASSIFIED SNOMED Code(s): 621228840 (4) Colostomy in place Current Visit: No Status: Acute Code(s): Z93.3 - COLOSTOMY STATUS SNOMED Code(s): 875324684 (5) GERD (gastroesophageal reflux disease) Current Visit: No Status: Acute Code(s): K21.9 - GASTRO-ESOPHAGEAL REFLUX DISEASE WITHOUT ESOPHAGITIS SNOMED Code(s): 939615043 (6) History of creation of ostomy Current Visit: No Status: Acute Code(s): Z93.9 - ARTIFICIAL OPENING STATUS, UNSPECIFIED SNOMED Code(s): 092152132 (7) Nausea and vomiting Current Visit: No Status: Acute Code(s): R11.2 - NAUSEA WITH VOMITING, UNSPECIFIED SNOMED Code(s): 19329676 (8) Suprapubic catheter Current Visit: No Status: Acute Code(s): Z93.59 - OTHER CYSTOSTOMY STATUS SNOMED Code(s): 999456577 Plan: The patient is here essentially for small bowel obstruction. The patient has had bowel movement. The prep hopefully we can DC NG tube. Otherwise, we will go ahead and advance diet once that is done. Appropriate pain control. Appreciate multiple consultants input.
--- NOTE | 2021-02-20 10:58 | XR ---
EXAMINATION TYPE: XR abdomen acute w cxr DATE OF EXAM: 02/20/2021 COMPARISON: 02/12/2021 HISTORY: 65 year-old female history of small bowel obstruction TECHNIQUE: Supine, upright, and left side down lateral decubitus views of the abdomen are obtained. FINDINGS: NG tube is in place. The tip extends just below the GE junction. The sidehole is above the GE junction. Advanced by 7 cm so it enters the stomach. Heart normal size. Aorta and pulmonary vasculature within normal limits. No consolidation or pleural effusion. ACDF hardware. No evidence for free air. Lumbosacral fusion changes with laminectomies. Multiple pelvic phleboliths. Possible 3 mm right renal calculus. Scattered small air-fluid levels throughout the abdomen. Small bowel loops currently measure up to 3. 8 cm versus 4.5 cm, previously. IMPRESSION: 1. NG tube side hole above the GE junction. Advance into the stomach by 7 cm. 2. Improving small bowel obstruction. Residual small bowel dilatation measuring up to 3.8 cm versus 4 .5 cm, previously.
[2021-02-20] MEDS: DEXTROSE 5%-0.45% NACL 1,000 ML IV SCH ×2 (11:25→20:47)
[2021-02-20] MEDS: buPROPion XL 300 MG TAB.ER.24H PO SCH (19:37)
[2021-02-20] MEDS: CHOLECALCIFEROL 25 MCG (1000 IU) TABLET PO SCH (19:37)
[2021-02-20] MEDS: HYDROmorphone 0.5 MG/0.5 ML SYRINGE IVP PRN (19:38)
[2021-02-20] MEDS: LATANOPROST 0.005% OPHTH DROPS 2.5 ML BTL BOTH EYES SCH (20:49)
[2021-02-21] MEDS: LEVOTHYROXINE 100 MCG TAB PO SCH (05:54)
[2021-02-21] MEDS: METOCLOPRAMIDE 5 MG/ML 2 ML VIAL IVP SCH ×3 (05:54→16:52)
[2021-02-21] MEDS: FLUTICASONE 50MCG/SPRAY NASAL 16GM EA NOSTRIL SCH (08:28)
[2021-02-21] MEDS: PANTOPRAZOLE 40 MG/10 ML VIAL IVP SCH (08:29)
[2021-02-21] MEDS: HEPARIN SODIUM,PORCINE/PF 5,000 UNIT/0.5 ML SYRINGE SQ SCH ×2 (08:29→20:15)
[2021-02-21] MEDS: KETOTIFEN 0.025% OPHTH DROPS 5 ML BTL BOTH EYES SCH ×2 (08:29→20:01)
[2021-02-21] MEDS: MECLIZINE 25 MG TAB PO SCH ×2 (09:20→20:14)
[2021-02-21] MEDS: GABAPENTIN 400 MG CAP PO SCH ×3 (09:20→21:06)
[2021-02-21] MEDS: TROSPIUM CHLORIDE 20 MG TABLET PO SCH ×2 (09:21→20:16)
[2021-02-21] MEDS: MULTIVITAMINS, THERA 1 EACH TAB PO SCH (09:21)
[2021-02-21] MEDS: polyethylene glycoL 3350 17 GM POWD.PACK PO SCH ×2 (09:21→20:14)
[2021-02-21] MEDS: DEXTROSE 5%-0.45% NACL 1,000 ML IV SCH (11:03)
--- NOTE | 2021-02-21 12:32 | P.PN ---
Subjective Progress Note Date: 02/20/21 Multiple BM and flatus Minimal output from ostomy NGT in place Objective - Vital Signs Vital signs: Vital Signs Temp 97.8 F 02/21/21 08:45 Pulse 88 02/21/21 08:45 Resp 18 02/21/21 08:45 BP 159/77 02/21/21 08:45 Pulse Ox 95 02/21/21 08:45 Intake & Output 02/20/21 02/21/21 02/21/21 18:59 06:59 18:59 Output Total 1850 850 75 Balance -1850 -850 -75 Output: Urine 1500 850 Stool 350 75 Other: Voiding Method Indwelling Catheter Indwelling Catheter # Voids 0 # Bowel Movements 1 - Gastrointestinal Gastrointestinal Comment(s): S/NT/ND ostomy pink patent with stool and gas in bag - Labs CBC & Chem 7: 02/19/21 06:29 02/19/21 06:29 Assessment and Plan Assessment: SBO Plan: DC NGT, sips of clears. advance diet cautiously
[2021-02-21] MEDS: ONDANSETRON 4 MG/2 ML VIAL IVP PRN (13:15)
--- NOTE | 2021-02-21 13:34 | P.PN ---
Subjective Progress Note Date: 02/21/21 Patient seen and examined at bedside. She had a bowel movement earlier this morning into the ostomy. This was confirmed by nursing and was noted to be moderate in size. Currently, patient is also having soft stool in the bag. Patient denies any nausea or vomiting. She states she is feeling better. Objective - Vital Signs Vital signs: Vital Signs Temp 97.8 F 02/21/21 08:45 Pulse 88 02/21/21 08:45 Resp 18 02/21/21 08:45 BP 159/77 02/21/21 08:45 Pulse Ox 95 02/21/21 08:45 Intake & Output 02/20/21 02/21/21 02/21/21 18:59 06:59 18:59 Output Total 1850 850 75 Balance -1850 -850 -75 Output: Urine 1500 850 Stool 350 75 Other: Voiding Method Indwelling Catheter Indwelling Catheter # Voids 0 # Bowel Movements 1 - Constitutional General appearance: Present: cooperative, no acute distress - Gastrointestinal Gastrointestinal Comment(s): Soft, nontender, ostomy is patent with stool in ostomy bag - Psychiatric Psychiatric: Present: A&O x's 3 - Labs CBC & Chem 7: 02/19/21 06:29 02/19/21 06:29 Assessment and Plan Plan: Patient appears to have returning bowel function. We'll advance to clear liquid diet. After further discussion with the patient, she normally takes MiraLAX twice a day and at bedtime she takes an [id number] laxative and states she takes 3 of these pills at night. She seems to require a significant amount of laxatives to continue to have bowel function. Her issue at this point, seems to be more associated with ileus and constipation rather than a true obstruction and she continues to have bowel function. We will continue with the MiraLAX twice a day along with adding senna twice a day.
[2021-02-21] MEDS: SENNOSIDES 8.6 MG TAB PO SCH ×2 (14:05→20:25)
[2021-02-21] MEDS: LATANOPROST 0.005% OPHTH DROPS 2.5 ML BTL BOTH EYES SCH (20:12)
[2021-02-21] MEDS: oxyCODONE-APAP 5-325MG 1 EACH TAB PO PRN (20:13)
[2021-02-21] MEDS: buPROPion XL 300 MG TAB.ER.24H PO SCH (20:15)
[2021-02-21] MEDS: CHOLECALCIFEROL 25 MCG (1000 IU) TABLET PO SCH (20:15)
[2021-02-22] MEDS: METOCLOPRAMIDE 5 MG/ML 2 ML VIAL IVP SCH ×4 (00:25→19:12)
[2021-02-22] MEDS: DEXTROSE 5%-0.45% NACL 1,000 ML IV SCH ×3 (06:14→19:30)
[2021-02-22] MEDS: LEVOTHYROXINE 100 MCG TAB PO SCH (06:14)
[2021-02-22] MEDS: GABAPENTIN 400 MG CAP PO SCH ×3 (08:26→22:11)
[2021-02-22] MEDS: SENNOSIDES 8.6 MG TAB PO SCH ×2 (08:26→20:33)
[2021-02-22] MEDS: MECLIZINE 25 MG TAB PO SCH ×2 (08:26→20:32)
[2021-02-22] MEDS: MULTIVITAMINS, THERA 1 EACH TAB PO SCH (08:26)
[2021-02-22] MEDS: TROSPIUM CHLORIDE 20 MG TABLET PO SCH ×2 (08:26→20:33)
[2021-02-22] MEDS: FLUTICASONE 50MCG/SPRAY NASAL 16GM EA NOSTRIL SCH (08:27)
[2021-02-22] MEDS: PANTOPRAZOLE 40 MG/10 ML VIAL IVP SCH (08:27)
[2021-02-22] MEDS: KETOTIFEN 0.025% OPHTH DROPS 5 ML BTL BOTH EYES SCH ×2 (08:27→20:30)
[2021-02-22] MEDS: HEPARIN SODIUM,PORCINE/PF 5,000 UNIT/0.5 ML SYRINGE SQ SCH ×2 (08:27→20:33)
[2021-02-22] MEDS: polyethylene glycoL 3350 17 GM POWD.PACK PO SCH ×2 (08:29→20:33)
--- NOTE | 2021-02-22 10:24 | P.PN ---
Subjective Principal diagnosis: Partial SBO/Ileus The patient is status post NG tube replacement. However, the patient has had appropriate BM. Advancing diet. Appreciate multiple consultants input. Objective - Vital Signs Vital signs: Vital Signs Temp 97.9 F 02/22/21 08:38 Pulse 88 02/22/21 08:38 Resp 18 02/22/21 08:38 BP 121/78 02/22/21 08:38 Pulse Ox 95 02/22/21 08:38 Intake & Output 02/21/21 02/22/21 02/22/21 18:59 06:59 18:59 Intake Total 210 1000 Output Total 975 2350 900 Balance -767 -1621 -900 Intake: Oral 210 1000 Output: Urine 900 2250 900 Stool 75 100 Other: Voiding Method Indwelling Catheter Indwelling Catheter # Voids 1 1 # Bowel Movements 1 1 - Constitutional General appearance: Present: average body habitus - EENT Eyes: Present: abnormal pupil - Respiratory Respiratory: bilateral: CTA - Gastrointestinal General gastrointestinal: Present: soft. Absent: tenderness - Integumentary Integumentary: Present: normal - Labs CBC & Chem 7: 02/19/21 06:29 02/19/21 06:29 Assessment and Plan (1) Small bowel obstruction Current Visit: Yes Status: Acute Code(s): K56.609 - UNSP INTESTNL OBST, UNSP TO PARTIAL VERSUS COMPLETE OBST SNOMED Code(s): 680987774 (2) Abdominal pain Current Visit: No Status: Acute Code(s): R10.9 - UNSPECIFIED ABDOMINAL PAIN SNOMED Code(s): 38816840 (3) Atonic urinary bladder Current Visit: No Status: Acute Code(s): N31.2 - FLACCID NEUROPATHIC BLADDER, NOT ELSEWHERE CLASSIFIED SNOMED Code(s): 139747418 (4) Colostomy in place Current Visit: No Status: Acute Code(s): Z93.3 - COLOSTOMY STATUS SNOMED Code(s): 391036663 (5) GERD (gastroesophageal reflux disease) Current Visit: No Status: Acute Code(s): K21.9 - GASTRO-ESOPHAGEAL REFLUX DISEASE WITHOUT ESOPHAGITIS SNOMED Code(s): 241228865 (6) History of creation of ostomy Current Visit: No Status: Acute Code(s): Z93.9 - ARTIFICIAL OPENING STATUS, UNSPECIFIED SNOMED Code(s): 246397439 (7) Nausea and vomiting Current Visit: No Status: Acute Code(s): R11.2 - NAUSEA WITH VOMITING, UNSPECIFIED SNOMED Code(s): 80699382 (8) Suprapubic catheter Current Visit: No Status: Acute Code(s): Z93.59 - OTHER CYSTOSTOMY STATUS SNOMED Code(s): 071518153 Plan: The patient is here essentially for small bowel obstruction. The patient has had bowel movement. Otherwise, we will go ahead and advance diet once that is done. Appropriate pain control. Appreciate multiple consultants input. Hopefully we can discharge in the a.m.
--- NOTE | 2021-02-22 11:21 | P.PN ---
Subjective Progress Note Date: 02/22/21 Patient seen and examined at bedside. Overnight nurse emptied 150 mL of stool from ostomy, current nurse has already emptied 100 mL of stool from the ostomy. Patient appears to be moving bowels appropriately. Advanced to full liquid diet this morning. Objective - Vital Signs Vital signs: Vital Signs Temp 97.9 F 02/22/21 08:38 Pulse 88 02/22/21 08:38 Resp 18 02/22/21 08:38 BP 121/78 02/22/21 08:38 Pulse Ox 95 02/22/21 08:38 Intake & Output 02/21/21 02/22/21 02/22/21 18:59 06:59 18:59 Intake Total 210 1000 Output Total 975 2350 900 Balance -765 -1350 -900 Intake: Oral 210 1000 Output: Urine 900 2250 900 Stool 75 100 Other: Voiding Method Indwelling Catheter Indwelling Catheter # Voids 1 1 # Bowel Movements 1 1 - Constitutional General appearance: Present: cooperative, no acute distress - Gastrointestinal Gastrointestinal Comment(s): Soft, nontender, nondistended, no rebound, no guarding, ostomy is pink and patent - Labs CBC & Chem 7: 02/19/21 06:29 02/19/21 06:29 Assessment and Plan Plan: 65-year-old female with improving bowel obstruction. Patient has had continued output from the ostomy. Diet was advanced to full liquid diet. We will keep the patient on full liquid diet for the rest of the day. Continue to increase activity. All questions were answered.
[2021-02-22] MEDS: CHOLECALCIFEROL 25 MCG (1000 IU) TABLET PO SCH (20:32)
[2021-02-22] MEDS: oxyCODONE-APAP 5-325MG 1 EACH TAB PO PRN (20:32)
[2021-02-22] MEDS: buPROPion XL 300 MG TAB.ER.24H PO SCH (20:32)
[2021-02-22] MEDS: LATANOPROST 0.005% OPHTH DROPS 2.5 ML BTL BOTH EYES SCH (20:33)
[2021-02-23] MEDS: METOCLOPRAMIDE 5 MG/ML 2 ML VIAL IVP SCH ×4 (00:33→12:42)
[2021-02-23 05:27] LABS: Basophils % (A) 0 %; Eosinophils # (A) 0.2 k/uL (0-0.7); Eosinophils % (A) 2 %; HCT 37.9 % (34.0-46.0); HGB 12.7 gm/dL (11.4-16.0); Lymphocytes # (A) 3.1 k/uL (1.0-4.8); Lymphocytes % (A) 36 %; MCH 31.5 pg (25.0-35.0); MCHC 33.6 g/dL (31.0-37.0); MCV 93.9 fL (80.0-100.0); Mean Platelet Volume 8.6; Monocytes # (A) 0.5 k/uL (0-1.0); Monocytes % (A) 6 %; Neutrophils # (A) 4.6 k/uL (1.3-7.7); Neutrophils % (A) 53 %; Platelet Count 271 k/uL (150-450); RBC 4.04 m/uL (3.80-5.40); RDW 15.3 % (11.5-15.5); WBC 8.6 k/uL (3.8-10.6)
[2021-02-23 05:43] LABS: African American GFR (CKD) >90 (>60 ml/min/1.73 sqM); Anion Gap 6 mmol/L; Blood Urea Nitrogen 4 mg/dL (7-17); Calcium 9.6 mg/dL (8.4-10.2); Carbon Dioxide 25 mmol/L (22-30); Chloride 105 mmol/L (98-107); Glucose 104 mg/dL (74-99); Non-African American GFR(CKD) >90 (>60 ml/min/1.73 sqM); Potassium 3.9 mmol/L (3.5-5.1); Sodium 136 mmol/L (137-145)
[2021-02-23] MEDS: LEVOTHYROXINE 100 MCG TAB PO SCH (05:45)
[2021-02-23] MEDS: PANTOPRAZOLE 40 MG/10 ML VIAL IVP SCH (08:30)
[2021-02-23] MEDS: SENNOSIDES 8.6 MG TAB PO SCH (08:30)
[2021-02-23] MEDS: MULTIVITAMINS, THERA 1 EACH TAB PO SCH (08:30)
[2021-02-23] MEDS: MECLIZINE 25 MG TAB PO SCH (08:30)
[2021-02-23] MEDS: TROSPIUM CHLORIDE 20 MG TABLET PO SCH (08:30)
[2021-02-23] MEDS: HEPARIN SODIUM,PORCINE/PF 5,000 UNIT/0.5 ML SYRINGE SQ SCH (08:30)
[2021-02-23] MEDS: DEXTROSE 5%-0.45% NACL 1,000 ML IV SCH (08:30)
[2021-02-23] MEDS: polyethylene glycoL 3350 17 GM POWD.PACK PO SCH (08:30)
[2021-02-23] MEDS: GABAPENTIN 400 MG CAP PO SCH (08:30)
[2021-02-23] MEDS: KETOTIFEN 0.025% OPHTH DROPS 5 ML BTL BOTH EYES SCH (08:32)
[2021-02-23] MEDS: FLUTICASONE 50MCG/SPRAY NASAL 16GM EA NOSTRIL SCH (08:33)
[2021-02-23 09:30] VITALS: BP 123/78; TEMP 97.9
--- NOTE | 2021-02-23 09:52 | P.PN ---
Subjective Progress Note Date: 02/23/21 Patient seen and examined at bedside. States she has continued to have bowel function and has emptied out her ostomy bag approximately 2 or 3 times over the last 24 hours. She states that her function has returned to what is normal for her. She denies any nausea. Tolerating full liquid diet. Objective - Vital Signs Vital signs: Vital Signs Temp 97.9 F 02/23/21 09:25 Pulse 84 02/23/21 09:25 Resp 18 02/23/21 09:25 BP 123/78 02/23/21 09:25 Pulse Ox 98 02/23/21 09:25 Intake & Output 02/22/21 02/23/21 02/23/21 18:59 06:59 18:59 Intake Total 840 Output Total 1900 3100 Balance -1900 -2260 Intake: Oral 840 Output: Urine 1700 3100 Stool 200 Other: Voiding Method Indwelling Catheter # Voids 1 # Bowel Movements 1 - Constitutional General appearance: Present: cooperative, no acute distress - Gastrointestinal Gastrointestinal Comment(s): Soft, nontender, nondistended, ostomy is pink and patent - Musculoskeletal Musculoskeletal: Present: generalized weakness - Labs CBC & Chem 7: 02/23/21 05:09 02/23/21 05:09 Labs: Abnormal Lab Results - Last 24 Hours (Table) 02/23/21 Range/Units 05:09 Sodium 136 L (137-145) mmol/L BUN 4 L (7-17) mg/dL Glucose 104 H (74-99) mg/dL Assessment and Plan Plan: 65-year-old female with improving bowel obstruction. - Continues to have bowel movements. Patient states she has emptied her appliance 2 or 3 times over the past 24 hours. She states that her output is back to what is considered normal for herself. - Advance to soft diet - Counseled the patient on continuing bowel regimen as an outpatient - AND transferred. Patient is surgically stable for discharge
[2021-02-23 11:12] VITALS: PULSE 135; RESP 44
== END 2021-02-23 16:06 | disposition home or self-care (01) | DRG 390 ==
LOC: EC 23:41 → 4SSUR 02-11 04:00 → 6PED 02-17 10:03
PROVIDERS: ADMIT Family Medicine; ATTEND Family Medicine
DX: K56.600 Partial intestinal obstruction, unspecified as to cause (principal); M79.7 Fibromyalgia; Z79.890 Hormone replacement therapy; Z79.899 Other long term (current) drug therapy; Z80.3 Family history of malignant neoplasm of breast; Z82.0 Family history of epilepsy and other diseases of the nervous system; Z87.01 Personal history of pneumonia (recurrent); Z87.440 Personal history of urinary (tract) infections; Z96.651 Presence of right artificial knee joint; Z93.3 Colostomy status; Z90.710 Acquired absence of both cervix and uterus; Z90.49 Acquired absence of other specified parts of digestive tract; K56.7 Ileus, unspecified; K21.9 Gastro-esophageal reflux disease without esophagitis; G89.4 Chronic pain syndrome; F32.9 Major depressive disorder, single episode, unspecified; M50.30 Other cervical disc degeneration, unspecified cervical region; M19.90 Unspecified osteoarthritis, unspecified site; E07.9 Disorder of thyroid, unspecified; G57.93 Unspecified mononeuropathy of bilateral lower limbs; R74.01 Elevation of levels of liver transaminase levels
CPT/HCPCS: 36415; 71045; 74022; 74177; 80048; 80053; 81001; 83605; 83690; 84484; 85025; 85027; 87040; 87077; 87086; 87186; 93005; 94640; 96361; 96374; 96375; 96376; 99285

== ENCOUNTER 2021-02-28 19:43 | Emergency (ER) | payer MEDICARE, OTHER ==
[2021-02-28 19:55] VITALS: TEMP 99.2
[2021-02-28] MEDS ORDERED: HYDROmorphone 1 MG/ML 1 ML SYRINGE IVP STA (20:41)
[2021-02-28] MEDS ORDERED: SODIUM CHLORIDE 0.9% 500 ML 500 ML IV STA (20:41)
[2021-02-28] MEDS ORDERED: ONDANSETRON 4 MG/2 ML VIAL IVP STA (20:41)
[2021-02-28 21:06] LABS: Appearance,Urine Clear (Clear); Bacteria,Urine Rare /hpf; Basophils % (A) 0 %; Bilirubin,Urine Negative (Negative); Blood,Urine Negative (Negative); Color,Urine Yellow; Eosinophils # (A) 0.3 k/uL (0-0.7); Eosinophils % (A) 4 %; Glucose,Urine (UA) Negative (Negative); HCT 37.9 % (34.0-46.0); HGB 12.4 gm/dL (11.4-16.0); Ketones,Urine Negative (Negative); Leukocyte Esterase,Urine Small (Negative); Lymphocytes # (A) 3.3 k/uL (1.0-4.8); Lymphocytes % (A) 37 %; MCH 30.9 pg (25.0-35.0); MCHC 32.7 g/dL (31.0-37.0); MCV 94.5 fL (80.0-100.0); Mean Platelet Volume 8.5; Monocytes # (A) 0.6 k/uL (0-1.0); Monocytes % (A) 7 %; Mucus,Urine Rare /hpf; Neutrophils # (A) 4.5 k/uL (1.3-7.7); Neutrophils % (A) 50 %; Nitrite,Urine Negative (Negative); Platelet Count 241 k/uL (150-450); Protein,Urine Negative (Negative); RBC 4.01 m/uL (3.80-5.40); RBC,Urine 17 /hpf (0-5); RDW 15.4 % (11.5-15.5); Specific Gravity,Urine 1.013 (1.001-1.035); Squamous Epithelial Cell,Urine <1 /hpf (0-4); Urobilinogen,Urine <2.0 mg/dL (<2.0); WBC,Urine 6 /hpf (0-5)
[2021-02-28 21:15] LABS: Albumin 3.9 g/dL (3.5-5.0); Calcium 9.6 mg/dL (8.4-10.2); Potassium 4.4 mmol/L (3.5-5.1); Total Bilirubin 0.2 mg/dL (0.2-1.3); Total Protein 6.5 g/dL (6.3-8.2)
--- NOTE | 2021-02-28 21:42 | ED ---
General Adult HPI - General Chief complaint: Urogenital Stated complaint: Possible bladder infection Time Seen by Provider: 02/28/21 20:03 Source: patient Mode of arrival: ambulatory Limitations: no limitations - History of Present Illness Initial comments: 65 year-old female patient presents to the emergency department for concerns of UTI. She has suprapubic catheter in place and was recently treated for UTI with macrobid. States that today she felt pressure in her lower abdomen and she had some urine come from her urethra which is not normal. States she also became a little confused when organizing her medication. She is concerned that the UTI is getting worse. She denies any fever or chills. Denies any nausea or vomiting. Denies any fall or head injury. Denies blurred vision, double vision, dizziness, or weakness. Patient denies any recent rash, cough, shortness of breath, chest pain, diarrhea, constipation, back pain, numbness, tingling, headache, visual changes, or any other complaints. - Related Data Home Medications Medication Instructions Recorded Confirmed Gabapentin 800 mg PO TID 09/04/15 02/28/21 Ibuprofen [Motrin] 800 mg PO Q8H PRN 06/30/16 02/28/21 Levothyroxine Sodium [Synthroid] 100 mcg PO DAILY 06/30/16 02/28/21 oxyCODONE-APAP 5-325MG [Percocet 1 tab PO Q6H PRN 06/30/16 02/28/21 5-325 mg] buPROPion HCL [Wellbutrin XL] 300 mg PO DAILY 02/04/17 02/28/21 Cholecalciferol (Vitamin D3) 2,000 unit PO HS 06/16/18 02/28/21 [Vitamin D3] Docusate [Colace] 100 mg PO BID 06/16/18 02/28/21 Multivitamins, Thera [Multivitamin 1 tab PO DAILY 01/23/19 02/28/21 (formulary)] Vitamin B Complex 1 cap PO DAILY 01/23/19 02/28/21 Bimatoprost [Lumigan .01% Ophth 1 drop BOTH EYES HS 09/09/19 02/28/21 Soln] Fluticasone Nasal Paicines [Flonase 1 - 2 spr EA NOSTRIL DAILY 01/01/20 02/28/21 Nasal Paicines] Meclizine [Antivert] 25 mg PO BID 01/01/20 02/28/21 Olopatadine HCl [Pataday] 1 drop BOTH EYES DAILY 02/11/21 02/28/21 Polyethylene Glycol 3350 [Miralax] 17 gm PO BID 02/11/21 02/28/21 Trospium Chloride 20 mg PO BID 02/11/21 02/28/21 Nitrofurantoin Monohyd/M-Cryst 100 mg PO Q12HR 02/28/21 02/28/21 [Macrobid] Pantoprazole [Protonix] 40 mg PO DAILY 02/28/21 02/28/21 Previous Rx's Medication Instructions Recorded Omeprazole [PriLOSEC] 20 mg PO AC-BID 15 Days capsule. 02/13/15 Allergies Allergy/AdvReac Type Severity Reaction Status Date / Time adhesive tape Allergy Rash/Hives Verified 02/28/21 19:56 ciprofloxacin [From Cipro] Allergy Unknown Verified 02/28/21 19:56 colesevelam [From WelChol] Allergy Rash/Hives Verified 02/28/21 19:56 colesevelam HCl Allergy Rash/Hives Verified 02/28/21 19:56 [From WelChol] lamivudine Allergy Rash/Hives Verified 02/28/21 19:56 latex Allergy Dyspnea Verified 02/28/21 19:56 levofloxacin [From Levaquin] Allergy Rash/Hives/ Verified 02/28/21 19:56 Fever prochlorperazine edisylate Allergy Anaphylaxis Verified 02/28/21 19:56 [From Compazine] prochlorperazine maleate Allergy Anaphylaxis Verified 02/28/21 19:56 [From Compazine] vancomycin Allergy Rash/Hives/ Verified 02/28/21 19:56 Fever zidovudine Allergy Rash/Hives Verified 02/28/21 19:56 nitrofurantoin AdvReac Nausea & Verified 02/28/21 19:56 [From Macrobid] Vomiting/Dizziness nitroglycerin AdvReac cervical Verified 02/28/21 19:56 fusion spasms tramadol HCl [From Ultram] AdvReac WEAKNESS, Verified 02/28/21 19:56 DIZZYNESS zolpidem [From Ambien] AdvReac SLEEP Verified 02/28/21 19:56 WALKING COMBID Allergy Rash/Hives Uncoded 02/28/21 19:56 Review of Systems ROS Statement: Those systems with pertinent positive or pertinent negative responses have been documented in the HPI. ROS Other: All systems not noted in ROS Statement are negative. Past Medical History Past Medical History: Chest Pain / Angina, Eye Disorder, Fibromyalgia, GERD/Reflux, Memory Impairment, Osteoarthritis (OA), Pneumonia, Thyroid Disorder Additional Past Medical History / Comment(s): . 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 MINOR, OCC Short term memory loss. DDD Cervical, Thoracic, Lumbar levels. Chronic Pain syndrome in Back. Proctosigmoiditis w/ Colostomy. Diverticulosis. Neuropathy kalyani legs/feet. Migraines. Veritgo. Glaucoma kalyani. KEISHA-BARRE, septic shock, History of Any Multi-Drug Resistant Organisms: C-DIFF Date of last positivie culture/infection: 2010 MDRO Source:: stool Past Surgical History: Adenoidectomy, Back Surgery, Bladder Surgery, Bowel Resection, Breast Surgery, Cholecystectomy, Heart Catheterization, Hysterectomy, Joint Replacement, Tonsillectomy Additional Past Surgical History / Comment(s): 12/06/13 Cardiac cath-normal. cervical Fusion, Back surgury-rods/screws/cage, partial bowel resection with colostomy, total RIGHT KNEE REPLACEMENT, L knee arthroscopy, bladder suspension, cataracts breast augmentation. hip replacedment knee replacement Past Anesthesia/Blood Transfusion Reactions: Family History of Problems w/ Anesthesia, Postoperative Nausea & Vomiting (PONV) Additional Past Anesthesia/Blood Transfusion Reaction / Comment(s): FAMILY HAS PONV. Past Psychological History: Depression Smoking Status: Never smoker Past Alcohol Use History: None Reported Past Drug Use History: None Reported - Past Family History Father Family Medical History: Cancer, Musculoskeletal Disorder, Neurologic Disorder Additional Family Medical History / Comment(s): Father at 77 yrs. He had parkinson's dx. Mother Family Medical History: Cancer Additional Family Medical History / Comment(s): Mother had breast cancer. She is alive and 82 yrs old. General Exam Limitations: no limitations General appearance: alert, in no apparent distress, other (This is a well- developed, well-nourished adult female patient in no acute distress. Vital signs upon presentation are temperature 99.2F, pulse 98, respirations 19, blood pressure 142/78, pulse ox 96% on room air.) Eye exam: Present: normal appearance, PERRL, EOMI. Absent: scleral icterus, conjunctival injection, periorbital swelling ENT exam: Present: normal exam, normal oropharynx, mucous membranes moist Respiratory exam: Present: normal lung sounds bilaterally. Absent: respiratory distress, wheezes, rales, rhonchi, stridor Cardiovascular Exam: Present: regular rate, normal rhythm, normal heart sounds. Absent: systolic murmur, diastolic murmur, rubs, gallop, clicks GI/Abdominal exam: Present: soft, normal bowel sounds, other (Right lower quadrant suprapubic catheter ostomy noted no surrounding erythema or drainage.). Absent: distended, tenderness, guarding, rebound, rigid Neurological exam: Present: alert, oriented X3, CN II-XII intact Psychiatric exam: Present: normal affect, normal mood Skin exam: Present: warm, dry, intact, normal color. Absent: rash Course Vital Signs 02/28/21 02/28/21 19:51 22:19 Temperature 99.2 F Pulse Rate 98 77 Respiratory 19 16 Rate Blood Pressure 142/78 126/73 O2 Sat by Pulse 96 97 Oximetry Medical Decision Making - Medical Decision Making 65-year-old female patient presents to the emergency department today for eval uation of concerns for UTI and mild confusion earlier in the day. Is equal examination is unremarkable. Labs reviewed and show evidence for mild dehydration. White blood cell count is normal. No evidence for current urinary tract infection. I did discuss findings and results with her. She was given IV fluids. She'll be discharged to follow-up with her primary care physician and urologist for further evaluation as soon as possible. Return parameters discussed in detail. She verbalizes understanding and agrees with this plan. Case discussed with my attending Dr. Orellana. - Lab Data Result diagrams: 02/28/21 20:45 02/28/21 20:45 Lab Results 02/28/21 02/28/21 02/28/21 Range/Units 20:45 20:45 20:45 WBC 9.0 (3.8-10.6) k/uL RBC 4.01 (3.80-5.40) m/uL Hgb 12.4 (11.4-16.0) gm/dL Hct 37.9 (34.0-46.0) % MCV 94.5 (80.0-100.0) fL MCH 30.9 (25.0-35.0) pg MCHC 32.7 (31.0-37.0) g/dL RDW 15.4 (11.5-15.5) % Plt Count 241 (150-450) k/uL MPV 8.5 Neutrophils % 50 % Lymphocytes % 37 % Monocytes % 7 % Eosinophils % 4 % Basophils % 0 % Neutrophils # 4.5 (1.3-7.7) k/uL Lymphocytes # 3.3 (1.0-4.8) k/uL Monocytes # 0.6 (0-1.0) k/uL Eosinophils # 0.3 (0-0.7) k/uL Basophils # 0.0 (0-0.2) k/uL Sodium 136 L (137-145) mmol/L Potassium 4.4 (3.5-5.1) mmol/L Chloride 105 (98-107) mmol/L Carbon Dioxide 22 (22-30) mmol/L Anion Gap 9 mmol/L BUN 18 H (7-17) mg/dL Creatinine 0.90 (0.52-1.04) mg/dL Est GFR (CKD-EPI)AfAm 77 (>60 ml/min/1.73 sqM) Est GFR (CKD-EPI)NonAf 67 (>60 ml/min/1.73 sqM) Glucose 88 (74-99) mg/dL Plasma Lactic Acid Matheus (0.7-2.0) mmol/L Calcium 9.6 (8.4-10.2) mg/dL Total Bilirubin 0.2 (0.2-1.3) mg/dL AST 44 H (14-36) U/L ALT 30 (4-34) U/L Alkaline Phosphatase 127 H (38-126) U/L Total Protein 6.5 (6.3-8.2) g/dL Albumin 3.9 (3.5-5.0) g/dL Lipase 157 (23-300) U/L Urine Color Yellow Urine Appearance Clear (Clear) Urine pH 6.0 (5.0-8.0) Ur Specific [place] 1.013 (1.001-1.035) Urine Protein Negative (Negative) Urine Glucose (UA) Negative (Negative) Urine Ketones Negative (Negative) Urine Blood Negative (Negative) Urine Nitrite Negative (Negative) Urine Bilirubin Negative (Negative) Urine Urobilinogen <2.0 (<2.0) mg/dL Ur Leukocyte Esterase Small H (Negative) Urine RBC 17 H (0-5) /hpf Urine WBC 6 H (0-5) /hpf Ur Squamous Epith Cells <1 (0-4) /hpf Urine Bacteria Rare H (None) /hpf Urine Mucus Rare H (None) /hpf 02/28/21 Range/Units 20:45 WBC (3.8-10.6) k/uL RBC (3.80-5.40) m/uL Hgb (11.4-16.0) gm/dL Hct (34.0-46.0) % MCV (80.0-100.0) fL MCH (25.0-35.0) pg MCHC (31.0-37.0) g/dL RDW (11.5-15.5) % Plt Count (150-450) k/uL MPV Neutrophils % % Lymphocytes % % Monocytes % % Eosinophils % % Basophils % % Neutrophils # (1.3-7.7) k/uL Lymphocytes # (1.0-4.8) k/uL Monocytes # (0-1.0) k/uL Eosinophils # (0-0.7) k/uL Basophils # (0-0.2) k/uL Sodium (137-145) mmol/L Potassium (3.5-5.1) mmol/L Chloride (98-107) mmol/L Carbon Dioxide (22-30) mmol/L Anion Gap mmol/L BUN (7-17) mg/dL Creatinine (0.52-1.04) mg/dL Est GFR (CKD-EPI)AfAm (>60 ml/min/1.73 sqM) Est GFR (CKD-EPI)NonAf (>60 ml/min/1.73 sqM) Glucose (74-99) mg/dL Plasma Lactic Acid Matheus 1.0 (0.7-2.0) mmol/L Calcium (8.4-10.2) mg/dL Total Bilirubin (0.2-1.3) mg/dL AST (14-36) U/L ALT (4-34) U/L Alkaline Phosphatase (38-126) U/L Total Protein (6.3-8.2) g/dL Albumin (3.5-5.0) g/dL Lipase (23-300) U/L Urine Color Urine Appearance (Clear) Urine pH (5.0-8.0) Ur Specific [place] (1.001-1.035) Urine Protein (Negative) Urine Glucose (UA) (Negative) Urine Ketones (Negative) Urine Blood (Negative) Urine Nitrite (Negative) Urine Bilirubin (Negative) Urine Urobilinogen (<2.0) mg/dL Ur Leukocyte Esterase (Negative) Urine RBC (0-5) /hpf Urine WBC (0-5) /hpf Ur Squamous Epith Cells (0-4) /hpf Urine Bacteria (None) /hpf Urine Mucus (None) /hpf Disposition Clinical Impression: Pelvic pressure in female, Dehydration Disposition: HOME SELF-CARE Condition: Good Instructions (If sedation given, give patient instructions): Dehydration (ED), Pelvic Pain in Women (ED) Additional Instructions: Increase fluids. Follow up with your urologist for recheck in 1-2 days. Return for any new, worsening, or concerning symptoms. Is patient prescribed a controlled substance at d/c from ED?: No Referrals: Jaskaran Pressley MD [Primary Care Provider] - 1-2 days Time of Disposition: 21:42
[2021-02-28 22:20] VITALS: BP 126/73; PULSE 77; RESP 16
== END 2021-02-28 22:20 | disposition home or self-care (01) ==
LOC: EC 19:43
DX: R10.2 Pelvic and perineal pain (principal); E86.0 Dehydration; M19.90 Unspecified osteoarthritis, unspecified site; E07.9 Disorder of thyroid, unspecified; M79.7 Fibromyalgia; Z91.09 Other allergy status, other than to drugs and biological substances; Z88.1 Allergy status to other antibiotic agents; Z88.8 Allergy status to other drugs, medicaments and biological substances; Z91.040 Latex allergy status; Z88.6 Allergy status to analgesic agent; Z79.890 Hormone replacement therapy; Z79.899 Other long term (current) drug therapy; Z79.1 Long term (current) use of non-steroidal anti-inflammatories (NSAID)
CPT/HCPCS: 36415; 80053; 83605; 83690; 85025; 81001; 99284; 96374; 96375; J2405; J1170

== ENCOUNTER → 2021-04-09 | Outpatient (CLI) | payer MEDICARE, OTHER ==
--- NOTE | 2021-04-10 14:09 | BD ---
EXAMINATION TYPE: Axial Bone Density DATE OF EXAM: 04/09/2021 COMPARISON: NONE CLINICAL HISTORY: Height: 5 FT 3 IN Weight: 189 FRAX RISK QUESTIONS: Alcohol (3 or more units per day): NO Family History (Parent hip fracture): NO Glucocorticoids (More than 3mos): NO (Ex: prednisone, prednisolone, methylprednisolone, dexamethasone, and hydrocortisone). History of Fracture in Adulthood: YES Secondary Osteoporosis: 1. Type 1 Diabetes: NO 2. Hyperthyroidism: NO 3. Menopause before 45: [facility] AGE 21 4. Malnutrition: NO 5. Chronic liver disease: NO Rheumatoid Arthritis: NO Current Tobacco Use: NO RISK FACTORS HISTORY OF: Surgery to Spine/Hip(right/left)/Wrist (right/left): LEFT HIP REPLACEMENT/ LUMBAR SURG When: HIP 2019/ LUMBAR 2013 Family History of Osteoporosis: UNSURE Active: YES Diet low in dairy products/other sources of calcium: NO Postmenopausal woman: [facility] AGE 21 OVARIES REMOVED 2020 Take estrogen and/or progesterone medications: NO Lost more than 2 inches in height since high school: NO MEDICATIONS: Thyroid Medications: YES Which medication: LEVOTHYROXINE How Long: STARTED IN HER 20'S Additional Medications: GABAPENTIN, PANTOPRAZOLE, BUPROPION, IBUPROFEN, MECLOZINE, PERCOCET, VESICARE , LEVOTHYROXINE, LUMIGAN, FLUTICASONE SPRAY, ALBUTEROL, LACTULOSE Additional History: EXAM MEASUREMENTS: Bone mineral density about the R hip (g/cm2): 0.804 T Score values are as follows: -----R Neck: -1.7 -----R Total: -1.4 PREV BONE DENSITY DONE AT [facility] Bone mineral density about the L Wrist (g/cm2): 0.580 T Score values are as follows: -----Dist. R+U: -1.7 -----Prox. R+U: -1.3 -----Radius total: -1.6 PREV BONE DENSITY DONE AT [facility] IMPRESSION: Osteopenia (T Score between -2.5 and -1). There is slightly increased risk of fracture and the patient may be considered for treatment. Re-Screen 2-5 years. NOTE: T-SCORE=SD OF THE YOUNG ADULT MEAN.
--- NOTE | 2021-04-11 11:11 | MM ---
Reason for exam: screening (asymptomatic). Last mammogram was performed 2 years and 8 months ago. History: Patient is postmenopausal. Family history of breast cancer in mother at age 70, premenopausal breast cancer in aunt at age 43, and premenopausal breast cancer in sister at age 36. Silicone gel implants in both breasts, 2003. Reductions of both breasts, 1979. Taking estrogen for 1 year beginning at age 49. Taking unspecified hormones for 28 years beginning at age 22. Physical Findings: A clinical breast exam by your physician is recommended on an annual basis and results should be correlated with mammographic findings. MG 3D Screen Mammo Imp/Cad Bilateral CC and MLO view(s) were taken. Prior study comparison: August 15, 2018, bilateral MG 3d screen mammo imp/cad. July 27, 2017, mammogram, performed at [facility]. June 01, 2016, mammogram, performed at [facility]. There are scattered fibroglandular densities. Retropectoral silicone implants. Benign bilateral round and punctate calcifications. Bilateral reduction mammoplasty changes. No significant changes when compared with prior studies. ASSESSMENT: Benign, BI-RAD 2 RECOMMENDATION: Routine screening mammogram of both breasts in 1 year.
== END | disposition home or self-care (01) ==
LOC: RADBDWWP 14:40
PROVIDERS: ATTEND Family Medicine
DX: Z12.31 Encounter for screening mammogram for malignant neoplasm of breast (principal); M85.80 Other specified disorders of bone density and structure, unspecified site; N95.1 Menopausal and female climacteric states
CPT/HCPCS: 77063; 77067; 77080

== ENCOUNTER → 2021-08-29 | Outpatient (CLI) | payer MEDICARE, OTHER ==
--- NOTE | 2021-08-29 10:16 | XR ---
EXAMINATION TYPE: XR cervical spine limited DATE OF EXAM: 08/29/2021 CLINICAL HISTORY: pain TECHNIQUE: 3 views of the cervical spine are submitted. COMPARISON: None. FINDINGS: There has been solid fusion extending from C4 through C6 with anterior fixation plate and s crews in place. Alignment is anatomic. There is severe degenerative narrowing at C3-4 with ventral an d dorsal spondylosis. Mild narrowing at C6-7. IMPRESSION: Degenerative change and postoperative changes as noted.
== END | disposition home or self-care (01) ==
LOC: RADXRMAIN 09:57
PROVIDERS: ATTEND Family Medicine
DX: M50.30 Other cervical disc degeneration, unspecified cervical region (principal)
CPT/HCPCS: 72040

== ENCOUNTER → 2021-09-09 | Outpatient (CLI) | payer MEDICARE, OTHER ==
--- NOTE | 2021-09-09 13:01 | CT ---
EXAMINATION TYPE: CT brain wo con DATE OF EXAM: 09/09/2021 COMPARISON: CT dated 09/09/2019 HISTORY: [facility] CT DLP: 1054.2 mGycm Automated exposure control for dose reduction was used. TECHNIQUE: CT scan of the brain is performed without IV contrast administration. FINDINGS: Questionable mild bilateral cerebral white matter chronic microvascular ischemic changes. No acute in tracranial hemorrhage. No gross acute cortical infarct. No midline shift, herniation or ventriculecto my. Unremarkable casanova-white matter differentiation, basal cisterns, sella and CP angles. No gross space-o ccupying lesion, vasogenic edema or mass effect. No gross orbital abnormality. Clear visualized paranasal sinuses and left mastoid air cells. Previous right mastoidectomy with opacified right mastoid air cells. Osteopenia. IMPRESSION: No acute intracranial abnormality or gross space-occupying lesion by this nonenhanced CT scan. Incide ntal findings as described above. Further MRI assessment can be considered if clinically required.
== END | disposition home or self-care (01) ==
LOC: RADCTMAIN 12:07
PROVIDERS: ATTEND Family Medicine
DX: R51.9 Headache, unspecified (principal); G89.29 Other chronic pain; M54.2 Cervicalgia
CPT/HCPCS: 70450

== ENCOUNTER 2022-01-15 16:31 | Emergency (ER) | payer MEDICARE, OTHER ==
[2022-01-15 18:28] VITALS: BP 141/78; PULSE 99; RESP 16; TEMP 98.3
--- NOTE | 2022-01-15 18:30 | ED ---
Back Pain HPI - General Stated Complaint: Uncontrolled Pain/Head/Neck/Lt Shoulder Time Seen by Provider: 01/15/22 18:25 Source: RN notes reviewed - History of Present Illness Initial Comments: Neck pain, shoulder pain, bilateral, 4 months.Patient has worsening neck and shoulder pain radiating down both arms. This morning one half months. Patient has seen her regular physician and had a plain film x-rays cervical spine. At the initial onset patient also had some pain in the left side of her head and did have a CT of her head as well. Patient states the pain is aching and sharp in nature, exacerbated by movement, alleviated by rest, patient takes Percocet at home is not controlling the pain. No headache, no fever or chills, no changes in vision or hearing, no sore throat or difficulty with speech, no neck pain, no chest pain or shortness of breath, no abdominal pain, no nausea or vomiting, no changes in urination or bowel movements, no numbness or tingling, no extremity pain, no skin rashes or lesions. Onset/Timin -: month(s) - Related Data Home Medications Medication Instructions Recorded Confirmed Gabapentin 800 mg PO TID 09/04/15 02/28/21 Ibuprofen [Motrin] 800 mg PO Q8H PRN 06/30/16 02/28/21 Levothyroxine Sodium [Synthroid] 100 mcg PO DAILY 06/30/16 02/28/21 oxyCODONE-APAP 5-325MG [Percocet 1 tab PO Q6H PRN 06/30/16 02/28/21 5-325 mg] buPROPion HCL [Wellbutrin XL] 300 mg PO DAILY 02/04/17 02/28/21 Cholecalciferol (Vitamin D3) 2,000 unit PO HS 06/16/18 02/28/21 [Vitamin D3] Docusate [Colace] 100 mg PO BID 06/16/18 02/28/21 Multivitamins, Thera [Multivitamin 1 tab PO DAILY 01/23/19 02/28/21 (formulary)] Vitamin B Complex 1 cap PO DAILY 01/23/19 02/28/21 Bimatoprost [Lumigan 0.01% Ophth 1 drop BOTH EYES HS 09/09/19 02/28/21 Soln] Fluticasone Nasal [place] [Flonase 1 - 2 spr EA NOSTRIL DAILY 01/01/20 02/28/21 Nasal Sayre] Meclizine [Antivert] 25 mg PO BID 01/01/20 02/28/21 Olopatadine HCl [Pataday] 1 drop BOTH EYES DAILY 02/11/21 02/28/21 Trospium Chloride 20 mg PO BID 02/11/21 02/28/21 polyethylene glycoL 3350 [Miralax] 17 gm PO BID 02/11/21 02/28/21 Nitrofurantoin Monohyd/M-Cryst 100 mg PO Q12HR 02/28/21 02/28/21 [Macrobid] Pantoprazole [Protonix] 40 mg PO DAILY 02/28/21 02/28/21 Previous Rx's Medication Instructions Recorded Omeprazole [PriLOSEC] 20 mg PO AC-BID 15 Days capsule. 02/13/15 Cyclobenzaprine [Flexeril] 10 mg PO TID PRN #20 tab 01/15/22 methylPREDNISolone Dose Pack 4 mg PO DIRECTED #21 tab 01/15/22 [Medrol Dose Pack] Allergies Allergy/AdvReac Type Severity Reaction Status Date / Time adhesive tape Allergy Rash/Hives Verified 01/15/22 18:28 ciprofloxacin [From Cipro] Allergy Unknown Verified 01/15/22 18:28 colesevelam [From WelChol] Allergy Rash/Hives Verified 01/15/22 18:28 colesevelam HCl Allergy Rash/Hives Verified 01/15/22 18:28 [From WelChol] lamivudine Allergy Rash/Hives Verified 01/15/22 18:28 latex Allergy Dyspnea Verified 01/15/22 18:28 levofloxacin [From Levaquin] Allergy Rash/Hives/ Verified 01/15/22 18:28 Fever prochlorperazine edisylate Allergy Anaphylaxis Verified 01/15/22 18:28 [From Compazine] prochlorperazine maleate Allergy Anaphylaxis Verified 01/15/22 18:28 [From Compazine] vancomycin Allergy Rash/Hives/ Verified 01/15/22 18:28 Fever zidovudine Allergy Rash/Hives Verified 01/15/22 18:28 nitrofurantoin AdvReac Nausea & Verified 01/15/22 18:28 [From Macrobid] Vomiting/Dizziness nitroglycerin AdvReac cervical Verified 01/15/22 18:28 fusion spasms tramadol HCl [From Ultram] AdvReac WEAKNESS, Verified 01/15/22 18:28 DIZZYNESS zolpidem [From Ambien] AdvReac SLEEP Verified 01/15/22 18:28 WALKING COMBID Allergy Rash/Hives Uncoded 01/15/22 18:28 Review of Systems ROS Statement: Those systems with pertinent positive or pertinent negative responses have been documented in the HPI. ROS Other: All systems not noted in ROS Statement are negative. Past Medical History Past Medical History: Chest Pain / Angina, Eye Disorder, Fibromyalgia, GERD/Reflux, Memory Impairment, Osteoarthritis (OA), Pneumonia, Thyroid Disorder Additional Past Medical History / Comment(s): . 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 MINOR, OCC Short term memory loss. DDD Cervical, Thoracic, Lumbar levels. Chronic Pain syndrome in Back. Proctosigmoiditis w/ Colostomy. Diverticulosis. Neuropathy kalyani legs/feet. Migraines. Veritgo. Glaucoma kalyani. KEISHA-BARRE, septic shock, History of Any Multi-Drug Resistant Organisms: C-DIFF Date of last positivie culture/infection: 2010 MDRO Source:: stool Past Surgical History: Adenoidectomy, Back Surgery, Bladder Surgery, Bowel Resection, Breast Surgery, Cholecystectomy, Heart Catheterization, Hysterectomy, Joint Replacement, Tonsillectomy Additional Past Surgical History / Comment(s): 12/06/13 Cardiac cath-normal. cervical Fusion, Back surgury-rods/screws/cage, partial bowel resection with co lostomy, total RIGHT KNEE REPLACEMENT, L knee arthroscopy, bladder suspension, cataracts breast augmentation. hip replacedment knee replacement Past Anesthesia/Blood Transfusion Reactions: Family History of Problems w/ Anesthesia, Postoperative Nausea & Vomiting (PONV) Additional Past Anesthesia/Blood Transfusion Reaction / Comment(s): FAMILY HAS PONV. Past Psychological History: Depression Smoking Status: Never smoker Past Alcohol Use History: None Reported Past Drug Use History: None Reported - Past Family History Father Family Medical History: Cancer, Musculoskeletal Disorder, Neurologic Disorder Additional Family Medical History / Comment(s): Father at 77 yrs. He had parkinson's dx. Mother Family Medical History: Cancer Additional Family Medical History / Comment(s): Mother had breast cancer. She is alive and 82 yrs old. General Exam General appearance: in distress Head exam: Present: atraumatic, normocephalic, normal inspection Eye exam: Present: normal appearance, PERRL, EOMI. Absent: scleral icterus, conjunctival injection, periorbital swelling ENT exam: Present: normal exam, mucous membranes moist Neck exam: Present: normal inspection. Absent: tenderness, meningismus, full ROM (Limited range of motion secondary to pain. Patient is able to actually rotate her head 45 in each direction. Limited range of motion of bilateral shoulders secondary to pain. Invoice Clerk strength is 5 over 5 in the right and 5 on the left.), lymphadenopathy Respiratory exam: Present: normal lung sounds bilaterally. Absent: respiratory distress, wheezes, rales, rhonchi, stridor, chest wall tenderness, accessory muscle use Cardiovascular Exam: Present: regular rate, normal rhythm, normal heart sounds. Absent: systolic murmur, diastolic murmur, rubs, gallop, clicks GI/Abdominal exam: Present: soft, normal bowel sounds. Absent: distended, tenderness, guarding, rebound, rigid Extremities exam: Present: normal inspection, full ROM, normal capillary refill. Absent: tenderness, pedal edema, joint swelling, calf tenderness Back exam: Present: normal inspection Neurological exam: Present: alert, oriented X3, CN II-XII intact Psychiatric exam: Present: normal affect, normal mood Skin exam: Present: warm, dry, intact, normal color. Absent: rash Course Vital Signs 01/15/22 18:25 Temperature 98.3 F Pulse Rate 99 Respiratory 16 Rate Blood Pressure 141/78 O2 Sat by Pulse 97 Oximetry Medical Decision Making - Medical Decision Making Symptomology is not consistent with cardiopulmonary disease. Has been going on for 4 months, consistent with cervical radiculopathy. Patient has multilevel degenerative changes consistent with cervical degenerative disc disease and cervical DJD. Patient has symptoms consistent with cervical radiculopathy. Full range of motion both upper extremities, full range of motion and the phalanges, hands, and wrists. And some infectious process. We'll have the patient follow up with the front end alignment specialist. Discussed all findings with the patient. We'll treat with a Medrol Dosepak. I did refill the patient's muscle relaxer as she previously has had that but is out. Patient has Percocet at home for pain. Discussed the possibility of diminished immune system on the corticosteroid medication. Patient was told to follow-up with her regular physician. Patient understands needs close follow-up. Patient was told to return to the ER for any signs or symptoms worsen. Told to return immediately if any other problems arise. All questions answered. Treatment plan discussed. Patient in agreement Every effort has been made to ensure accuracy of this dictation. However, due to the limitations of electronic medical records and dictation devices, errors in charting still occur. Mixing Pan Tender Dr. Sanchez - Radiology Data Radiology results: report reviewed (Multilevel degenerative changes as noted in the radiology interpretation.), image reviewed Disposition Clinical Impression: Chronic neck pain, Cervical radiculopathy Narrative: Acute on chronic neck pain Disposition: HOME SELF-CARE Condition: Good Instructions (If sedation given, give patient instructions): Cervical Radiculopathy (ED), Chronic Neck Pain (DC) Additional Instructions: Follow-up with your regular physician as directed. Return to the ER immediately if any symptoms worsen, new symptoms arise, or any other problems develop. Prescriptions: Cyclobenzaprine [Flexeril] 10 mg PO TID PRN #20 tab PRN Reason: Spasms methylPREDNISolone Dose Pack [Medrol Dose Pack] 4 mg PO DIRECTED #21 tab Is patient prescribed a controlled substance at d/c from ED?: No Referrals: Jaskaran Pressley MD [Primary Care Provider] - 1-2 days Krystle Quinonez DO [Doctor of Osteopathic Medicine] - 01/21/22 Time of Disposition: 20:43
[2022-01-15] MEDS ORDERED: HYDROmorphone 1 MG/ML 1 ML SYRINGE IM STA (19:13)
[2022-01-15] MEDS ORDERED: KETOROLAC 15 MG/ML 1 ML VIAL IM STA (19:13)
--- NOTE | 2022-01-15 20:19 | CT ---
EXAMINATION TYPE: CT cervical spine wo con DATE OF EXAM: 01/15/2022 COMPARISON: CT cervical spine 2019. HISTORY: Neck pain, prior fusion. Denies recent injury or trauma, pain radiating into arm, can barely lift LT arm. CT DLP: 512.5 mGycm. Automated Exposure Control for Dose Reduction was Utilized. TECHNIQUE: CT scan of the cervical spine is obtained without contrast, axial images are obtained, sa gittal and coronal reformatted images are also reviewed. FINDINGS: Cervical spine is visualized in its entirety from C1 through upper thoracic levels, demonst rates satisfactory alignment without evidence of acute fracture or dislocation. Prevertebral soft ti ssue appears within normal limits. The C1-C2 articulation is within normal limits on the coronal jojo ges. Anterior fusion plate with ossific fusion C4-C6 levels is redemonstrated. Moderate to severe rosalie rowing and spurring C3-C4 level again seen. Moderate spurring and disc space narrowing C6-C7 and C7-T 1 levels redemonstrated. Posterior spur disc complex effaces anterior thecal sac C3-C4 level on axial and sagittal images similar to prior with moderate to severe right and [id number] left-sided n eural foraminal narrowing. Less prominent findings at C6-C7 and C7-T1 levels on sagittal and axillary images redemonstrated. Review of axial images shows normal sized thyroid gland. Visualized lung apices are clear. IMPRESSION: Surgical change with stable and satisfactory alignment. Multilevel degenerative changes as detailed above greatest C3-C4 level. No significant change from 2019 CT.
== END 2022-01-15 20:54 | disposition home or self-care (01) ==
LOC: EC 16:31
DX: M54.12 Radiculopathy, cervical region (principal); K21.9 Gastro-esophageal reflux disease without esophagitis; E07.9 Disorder of thyroid, unspecified; M79.7 Fibromyalgia; M19.90 Unspecified osteoarthritis, unspecified site; Z88.8 Allergy status to other drugs, medicaments and biological substances; Z88.6 Allergy status to analgesic agent; Z88.3 Allergy status to other anti-infective agents; Z88.1 Allergy status to other antibiotic agents; Z88.5 Allergy status to narcotic agent; Z91.09 Other allergy status, other than to drugs and biological substances; Z91.040 Latex allergy status; Z79.899 Other long term (current) drug therapy; Z79.890 Hormone replacement therapy
CPT/HCPCS: 72125; 99283; 96372; J1170; J1885

== ENCOUNTER 2022-01-24 15:59 | Emergency (ER) | payer MEDICARE, OTHER ==
[2022-01-24 16:19] VITALS: TEMP 98.4
[2022-01-24] MEDS ORDERED: ORPHENADRINE 30 MG/ML 2 ML VIAL IM STA (17:47)
[2022-01-24] MEDS ORDERED: KETOROLAC 15 MG/ML 1 ML VIAL IM STA (17:47)
[2022-01-24] MEDS ORDERED: methylPREDNISolone SOD SUCCI 125 MG/2 ML VIAL IM ONE (17:47)
[2022-01-24] MEDS ORDERED: HYDROmorphone 0.5 MG/0.5 ML SYRINGE IM STA (18:36)
--- NOTE | 2022-01-24 18:53 | ED ---
General Adult HPI - General Chief complaint: Headache Stated complaint: Headache,neck/shoulder pain Time Seen by Provider: 01/24/22 17:37 Source: patient Mode of arrival: wheelchair Limitations: no limitations - History of Present Illness Initial comments: Patient is a 66-year-old female presenting with chief complaint of neck pain. Pain radiates down the left arm, and up to the base of the skull on the left side. Patient admits to a headache as well as shooting pain down the arm with some numbness and tingling. Patient has full range of motion of the left arm. She has been taking Medrol Dosepak and muscle relaxers for pain, and they are not helpful in alleviating the symptoms. Patient has Percocet at home for pain control, she states that she tries not to take it. Patient was seen here on 01/15 for the same complaint, states that she has not been able to follow up with Dr. Quinonez yet, she states that her muscle relaxers and a Medrol Dosepak she is prescribed is not effective in controlling her symptoms at this time. She denies any vision changes, fever, chills, chest pain, shortness of breath, nausea, vomiting. - Related Data Home Medications Medication Instructions Recorded Confirmed Gabapentin 800 mg PO TID 09/04/15 02/28/21 Ibuprofen [Motrin] 800 mg PO Q8H PRN 06/30/16 02/28/21 Levothyroxine Sodium [Synthroid] 100 mcg PO DAILY 06/30/16 02/28/21 oxyCODONE-APAP 5-325MG [Percocet 1 tab PO Q6H PRN 06/30/16 02/28/21 5-325 mg] buPROPion HCL [Wellbutrin XL] 300 mg PO DAILY 02/04/17 02/28/21 Cholecalciferol (Vitamin D3) 2,000 unit PO HS 06/16/18 02/28/21 [Vitamin D3] Docusate [Colace] 100 mg PO BID 06/16/18 02/28/21 Multivitamins, Thera [Multivitamin 1 tab PO DAILY 01/23/19 02/28/21 (formulary)] Vitamin B Complex 1 cap PO DAILY 01/23/19 02/28/21 Bimatoprost [Lumigan 0.01% Ophth 1 drop BOTH EYES HS 09/09/19 02/28/21 Soln] Fluticasone Nasal [place] [Flonase 1 - 2 spr EA NOSTRIL DAILY 01/01/20 02/28/21 Nasal [place]] Meclizine [Antivert] 25 mg PO BID 01/01/20 02/28/21 Olopatadine HCl [Pataday] 1 drop BOTH EYES DAILY 02/11/21 02/28/21 Trospium Chloride 20 mg PO BID 02/11/21 02/28/21 polyethylene glycoL 3350 [Miralax] 17 gm PO BID 02/11/21 02/28/21 Nitrofurantoin Monohyd/M-Cryst 100 mg PO Q12HR 02/28/21 02/28/21 [Macrobid] Pantoprazole [Protonix] 40 mg PO DAILY 02/28/21 02/28/21 Previous Rx's Medication Instructions Recorded Omeprazole [PriLOSEC] 20 mg PO AC-BID 15 Days capsule. 02/13/15 Cyclobenzaprine [Flexeril] 10 mg PO TID PRN #20 tab 01/15/22 methylPREDNISolone Dose Pack 4 mg PO DIRECTED #21 tab 01/15/22 [Medrol Dose Pack] Allergies Allergy/AdvReac Type Severity Reaction Status Date / Time adhesive tape Allergy Rash/Hives Verified 01/24/22 16:16 ciprofloxacin [From Cipro] Allergy Unknown Verified 01/24/22 16:16 colesevelam [From WelChol] Allergy Rash/Hives Verified 01/24/22 16:16 colesevelam HCl Allergy Rash/Hives Verified 01/24/22 16:16 [From WelChol] lamivudine Allergy Rash/Hives Verified 01/24/22 16:16 latex Allergy Dyspnea Verified 01/24/22 16:16 levofloxacin [From Levaquin] Allergy Rash/Hives/ Verified 01/24/22 16:16 Fever prochlorperazine edisylate Allergy Anaphylaxis Verified 01/24/22 16:16 [From Compazine] prochlorperazine maleate Allergy Anaphylaxis Verified 01/24/22 16:16 [From Compazine] vancomycin Allergy Rash/Hives/ Verified 01/24/22 16:16 Fever zidovudine Allergy Rash/Hives Verified 01/24/22 16:16 nitrofurantoin AdvReac Nausea & Verified 01/24/22 16:16 [From Macrobid] Vomiting/Dizziness nitroglycerin AdvReac cervical Verified 01/24/22 16:16 fusion spasms orphenadrine [From Norflex] AdvReac Rash/Hives Verified 01/24/22 17:59 tramadol HCl [From Ultram] AdvReac WEAKNESS, Verified 01/24/22 16:16 DIZZYNESS zolpidem [From Ambien] AdvReac SLEEP Verified 01/24/22 16:16 WALKING COMBID Allergy Rash/Hives Uncoded 01/24/22 16:16 Review of Systems ROS Statement: Those systems with pertinent positive or pertinent negative responses have been documented in the HPI. ROS Other: All systems not noted in ROS Statement are negative. Past Medical History Past Medical History: Chest Pain / Angina, Eye Disorder, Fibromyalgia, GERD/Reflux, Memory Impairment, Osteoarthritis (OA), Pneumonia, Thyroid Disorder Additional Past Medical History / Comment(s): . 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 MINOR, OCC Short term memory loss. DDD Cervical, Thoracic, Lumbar levels. Chronic Pain syndrome in Back. Proctosigmoiditis w/ Colostomy. Diverticulosis. Neuropathy kalyani legs/feet. Migraines. Veritgo. Glaucoma kalyani. KEISHA-BARRE, septic shock, History of Any Multi-Drug Resistant Organisms: C-DIFF Date of last positivie culture/infection: 2010 MDRO Source:: stool Past Surgical History: Adenoidectomy, Back Surgery, Bladder Surgery, Bowel Resection, Breast Surgery, Cholecystectomy, Heart Catheterization, Hysterectomy, Joint Replacement, Tonsillectomy Additional Past Surgical History / Comment(s): 12/06/13 Cardiac cath-normal. cervical Fusion, Back surgury-rods/screws/cage, partial bowel resection with colostomy, total RIGHT KNEE REPLACEMENT, L knee arthroscopy, bladder suspension, cataracts breast augmentation. hip replacedment knee replacement Past Anesthesia/Blood Transfusion Reactions: Family History of Problems w/ Anesthesia, Postoperative Nausea & Vomiting (PONV) Additional Past Anesthesia/Blood Transfusion Reaction / Comment(s): FAMILY HAS PONV. Past Psychological History: Depression Smoking Status: Never smoker Past Alcohol Use History: None Reported Past Drug Use History: None Reported - Past Family History Father Family Medical History: Cancer, Musculoskeletal Disorder, Neurologic Disorder Additional Family Medical History / Comment(s): Father at 77 yrs. He had parkinson's dx. Mother Family Medical History: Cancer Additional Family Medical History / Comment(s): Mother had breast cancer. She is alive and 82 yrs old. General Exam Limitations: no limitations General appearance: alert, in no apparent distress Head exam: Present: atraumatic, normocephalic, normal inspection Eye exam: Present: normal appearance, EOMI. Absent: scleral icterus, periorbital swelling Neck exam: Present: normal inspection, tenderness (Paraspinal muscle tenderness on the left side, no right-sided tenderness or vertebral tenderness), full ROM Respiratory exam: Present: normal lung sounds bilaterally. Absent: respiratory distress, wheezes, rales, rhonchi, stridor Cardiovascular Exam: Present: regular rate, normal rhythm, normal heart sounds. Absent: systolic murmur, diastolic murmur, rubs, gallop, clicks Extremities exam: Present: normal inspection, full ROM, tenderness (Left arm), normal capillary refill. Absent: joint swelling Neurological exam: Present: alert, oriented X3, CN II-XII intact Psychiatric exam: Present: normal affect, normal mood Skin exam: Present: warm, dry, intact, normal color. Absent: rash Course Vital Signs 01/24/22 01/24/22 16:16 20:13 Temperature 98.4 F Pulse Rate 100 91 Respiratory 18 16 Rate Blood Pressure 123/76 145/71 O2 Sat by Pulse 95 93 L Oximetry Medical Decision Making - Medical Decision Making Patient is a 66-year-old female presenting with chief complaint of left sided posterior neck pain that radiates up into the head and down the left arm. Patient was seen here for this complaint previously, she received a CT of the cervical spine which showed no acute abnormality. Complaint is not cardiovascular in nature, no chest pain or shortness of breath, does not align with her history. On examination there is paraspinal muscle tenderness on palpation of the left side of the neck, no right-sided or vertebral tenderness. She has full range of motion of the left arm, she is neurovascularly intact. Patient is given pain medication and she reports improvement. Instructed to follow-up with PCP in the spinal surgeon provided to her at her previous visit. Report back to ER with any new or worsening symptoms. Discussed return parameters answered all questions. I discussed supportive treatment. Patient conveyed verbal understanding and agreed to the plan. I discussed this case with my attending Dr. Layne. Disposition Clinical Impression: Cervical radicular pain Disposition: HOME SELF-CARE Condition: Good Instructions (If sedation given, give patient instructions): Acute Headache (ED), Cervical Radiculopathy (ED), Acute Neck Pain (ED) Additional Instructions: Follow-up with PCP and spine surgeon provided at previous visit. Report back to ER with any new or worsening symptoms. Take Motrin and Tylenol as needed for pain control. Rest, ice the area for symptomatically management. Is patient prescribed a controlled substance at d/c from ED?: No Referrals: Jaskaran Pressley MD [Primary Care Provider] - 1-2 days Krystle Quinonez DO [Doctor of Osteopathic Medicine] - 1-2 days Time of Disposition: 19:47
[2022-01-24 20:30] VITALS: BP 145/71; PULSE 91; RESP 16
== END 2022-01-24 20:13 | disposition home or self-care (01) ==
LOC: EC 15:59
DX: M54.12 Radiculopathy, cervical region (principal); R51.9 Headache, unspecified; K21.9 Gastro-esophageal reflux disease without esophagitis; M19.90 Unspecified osteoarthritis, unspecified site; E07.9 Disorder of thyroid, unspecified; F32.A Depression, unspecified; Z88.8 Allergy status to other drugs, medicaments and biological substances; Z88.1 Allergy status to other antibiotic agents; Z91.09 Other allergy status, other than to drugs and biological substances; Z91.040 Latex allergy status; Z88.5 Allergy status to narcotic agent; Z91.048 Other nonmedicinal substance allergy status; Z79.899 Other long term (current) drug therapy
CPT/HCPCS: 99283; 96372 ×3; J2930; J1885; J1170

== ENCOUNTER 2022-02-08 23:36 | Emergency (ER) | payer MEDICARE, OTHER ==
[2022-02-08 23:55] VITALS: TEMP 98.8
[2022-02-09] MEDS ORDERED: HYDROmorphone 1 MG/ML 1 ML SYRINGE IM STA (00:03)
[2022-02-09] MEDS ORDERED: KETOROLAC 15 MG/ML 1 ML VIAL IM STA (00:03)
--- NOTE | 2022-02-09 00:09 | ED ---
Extremity Problem HPI - General Chief complaint: Extremity Problem,Nontraumatic Stated complaint: Lt Shoulder Pain Time Seen by Provider: 02/08/22 23:54 Source: patient, RN notes reviewed Mode of arrival: ambulatory - History of Present Illness Initial comments: Patient presenting again for chronic bilateral shoulder and neck pain. Patient has had this for about 4 months. Patient on Percocet at home but states is not controlling her pain. Patient has seen the back specialist, Dr. Quinonez and is scheduled for an MRI and possibly a nerve block or corticosteroid injection. Patient states that she is having pain in the left arm, pain is sharp, also getting electrical-like pain. Pins and needles, pain is worse with movement. Patient states that she was told by the specialist that she has nerve damage. No headache, no fever or chills, no changes in vision or hearing, no sore throat or difficulty with speech, no chest pain or shortness of breath, no abdominal pain, no nausea or vomiting, no changes in urination or bowel movements, no numbness or tingling,no skin rashes or lesions. Past medical, surgical, social, and family history reviewed. - Related Data Home Medications Medication Instructions Recorded Confirmed Gabapentin 800 mg PO TID 09/04/15 02/28/21 Ibuprofen [Motrin] 800 mg PO Q8H PRN 06/30/16 02/28/21 Levothyroxine Sodium [Synthroid] 100 mcg PO DAILY 06/30/16 02/28/21 oxyCODONE-APAP 5-325MG [Percocet 1 tab PO Q6H PRN 06/30/16 02/28/21 5-325 mg] buPROPion HCL [Wellbutrin XL] 300 mg PO DAILY 02/04/17 02/28/21 Cholecalciferol (Vitamin D3) 2,000 unit PO HS 06/16/18 02/28/21 [Vitamin D3] Docusate [Colace] 100 mg PO BID 06/16/18 02/28/21 Multivitamins, Thera [Multivitamin 1 tab PO DAILY 01/23/19 02/28/21 (formulary)] Vitamin B Complex 1 cap PO DAILY 01/23/19 02/28/21 Bimatoprost [Lumigan 0.01% Ophth 1 drop BOTH EYES HS 09/09/19 02/28/21 Soln] Fluticasone Nasal [place] [Flonase 1 - 2 spr EA NOSTRIL DAILY 01/01/20 02/28/21 Nasal [place]] Meclizine [Antivert] 25 mg PO BID 01/01/20 02/28/21 Olopatadine HCl [Pataday] 1 drop BOTH EYES DAILY 02/11/21 02/28/21 Trospium Chloride 20 mg PO BID 02/11/21 02/28/21 polyethylene glycoL 3350 [Miralax] 17 gm PO BID 02/11/21 02/28/21 Nitrofurantoin Monohyd/M-Cryst 100 mg PO Q12HR 02/28/21 02/28/21 [Macrobid] Pantoprazole [Protonix] 40 mg PO DAILY 02/28/21 02/28/21 Previous Rx's Medication Instructions Recorded Omeprazole [PriLOSEC] 20 mg PO AC-BID 15 Days capsule. 02/13/15 Cyclobenzaprine [Flexeril] 10 mg PO TID PRN #20 tab 01/15/22 methylPREDNISolone Dose Pack 4 mg PO DIRECTED #21 tab 01/15/22 [Medrol Dose Pack] Allergies Allergy/AdvReac Type Severity Reaction Status Date / Time adhesive tape Allergy Rash/Hives Verified 02/08/22 23:55 ciprofloxacin [From Cipro] Allergy Unknown Verified 02/08/22 23:55 colesevelam [From WelChol] Allergy Rash/Hives Verified 02/08/22 23:55 colesevelam HCl Allergy Rash/Hives Verified 02/08/22 23:55 [From WelChol] lamivudine Allergy Rash/Hives Verified 02/08/22 23:55 latex Allergy Dyspnea Verified 02/08/22 23:55 levofloxacin [From Levaquin] Allergy Rash/Hives/ Verified 02/08/22 23:55 Fever prochlorperazine edisylate Allergy Anaphylaxis Verified 02/08/22 23:55 [From Compazine] prochlorperazine maleate Allergy Anaphylaxis Verified 02/08/22 23:55 [From Compazine] vancomycin Allergy Rash/Hives/ Verified 02/08/22 23:55 Fever zidovudine Allergy Rash/Hives Verified 02/08/22 23:55 nitrofurantoin AdvReac Nausea & Verified 02/08/22 23:55 [From Macrobid] Vomiting/Dizziness nitroglycerin AdvReac cervical Verified 02/08/22 23:55 fusion spasms orphenadrine [From Norflex] AdvReac Rash/Hives Verified 02/08/22 23:55 tramadol HCl [From Ultram] AdvReac WEAKNESS, Verified 02/08/22 23:55 DIZZYNESS zolpidem [From Ambien] AdvReac SLEEP Verified 02/08/22 23:55 WALKING COMBID Allergy Rash/Hives Uncoded 02/08/22 23:55 Review of Systems ROS Statement: Those systems with pertinent positive or pertinent negative responses have been documented in the HPI. ROS Other: All systems not noted in ROS Statement are negative. Past Medical History Past Medical History: Chest Pain / Angina, Eye Disorder, Fibromyalgia, GERD/Reflux, Memory Impairment, Osteoarthritis (OA), Pneumonia, Thyroid Disorder Additional Past Medical History / Comment(s): . 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 MINOR, OCC Short term memory loss. DDD Cervical, Thoracic, Lumbar levels. Chronic Pain syndrome in Back. Proctosigmoiditis w/ Colostomy. Diverticulosis. Neuropathy kalyani legs/feet. Migraines. Veritgo. Glaucoma kalyani. KEISHA-BARRE, septic shock, History of Any Multi-Drug Resistant Organisms: C-DIFF Date of last positivie culture/infection: 2010 MDRO Source:: stool Past Surgical History: Adenoidectomy, Back Surgery, Bladder Surgery, Bowel Resection, Breast Surgery, Cholecystectomy, Heart Catheterization, Hysterectomy, Joint Replacement, Tonsillectomy Additional Past Surgical History / Comment(s): 12/06/13 Cardiac cath-normal. cervical Fusion, Back surgury-rods/screws/cage, partial bowel resection with colostomy, total RIGHT KNEE REPLACEMENT, L knee arthroscopy, bladder suspension, cataracts breast augmentation. hip replacedment knee replacement Past Anesthesia/Blood Transfusion Reactions: Family History of Problems w/ Anesthesia, Postoperative Nausea & Vomiting (PONV) Additional Past Anesthesia/Blood Transfusion Reaction / Comment(s): FAMILY HAS PONV. Past Psychological History: Depression Smoking Status: Never smoker Past Alcohol Use History: None Reported Past Drug Use History: None Reported - Past Family History Father Family Medical History: Cancer, Musculoskeletal Disorder, Neurologic Disorder Additional Family Medical History / Comment(s): Father at 77 yrs. He had parkinson's dx. Mother Family Medical History: Cancer Additional Family Medical History / Comment(s): Mother had breast cancer. She is alive and 82 yrs old. General Exam - General Exam Comments Initial Comments: Patient really does not appear to be in any significant distress. Does not appear to be ill or toxic. Vital signs stable, patient afebrile. General appearance: alert, in no apparent distress Head exam: Present: atraumatic, normocephalic, normal inspection Eye exam: Present: normal appearance, PERRL, EOMI. Absent: scleral icterus, conjunctival injection, periorbital swelling ENT exam: Present: normal exam, normal oropharynx, mucous membranes moist, normal external ear exam. Absent: mucous membranes dry Neck exam: Present: normal inspection, full ROM (With discomfort). Absent: tenderness, meningismus, lymphadenopathy Respiratory exam: Present: normal lung sounds bilaterally. Absent: respiratory distress, wheezes, rales, rhonchi, stridor, chest wall tenderness, accessory muscle use Cardiovascular Exam: Present: regular rate, normal rhythm, normal heart sounds. Absent: systolic murmur, diastolic murmur, rubs, gallop, clicks GI/Abdominal exam: Present: soft, normal bowel sounds. Absent: distended, tenderness, guarding, rebound, rigid Extremities exam: Present: normal inspection, full ROM, tenderness (Patient does have soft tissue tenderness to the left deltoid and bicep area. No erythema. No break in skin integrity. No joint effusion. Full passive range of motion with pain. Active range of motion limited by pain.), normal capillary refill. Absent: pedal edema, joint swelling, calf tenderness Back exam: Present: normal inspection Neurological exam: Present: alert, oriented X3, CN II-XII intact, normal gait. Absent: motor sensory deficit Psychiatric exam: Present: normal affect, normal mood Skin exam: Present: warm, dry, intact, normal color. Absent: rash, cyanosis, diaphoretic, erythema, urticaria, vesicles Course Vital Signs 02/08/22 23:49 Temperature 98.8 F Pulse Rate 99 Respiratory 19 Rate Blood Pressure 120/65 O2 Sat by Pulse 98 Oximetry Medical Decision Making - Medical Decision Making She presents with chronic left shoulder pain. I did agree to give the patient pain medicine here. However patient will need to receive any further pain medication from her treating physician. Apparently the patient has an appointment with pain management. Patient was told to return to the ER for any signs or symptoms worsen. Told to return immediately if any other problems arise. All questions answered. Treatment plan discussed. Patient in agreement Every effort has been made to ensure accuracy of this dictation. However, due to the limitations of electronic medical records and dictation devices, errors in charting still occur. Side Gluer Dr. Leigh Disposition Clinical Impression: Chronic pain of both shoulders, Chronic neck pain Disposition: ADMITTED IP TO THIS [facility] Condition: Stable Instructions (If sedation given, give patient instructions): Chronic Pain (ED) Additional Instructions: Follow-up with your regular physician as directed. Return to the ER immediately if any symptoms worsen, new symptoms arise, or any other problems develop. You need to receive any further pain management from your treating physician or pain management doctor. Is patient prescribed a controlled substance at d/c from ED?: No Referrals: Jaskaran Pressley MD [Primary Care Provider] - 1-2 days Time of Disposition: 00:09
[2022-02-09 01:22] VITALS: BP 116/76; PULSE 94; RESP 16
== END 2022-02-09 01:22 | disposition other institution (70) ==
LOC: EC 23:36
DX: G89.29 Other chronic pain (principal); M25.512 Pain in left shoulder; M25.511 Pain in right shoulder; M54.2 Cervicalgia; K21.9 Gastro-esophageal reflux disease without esophagitis; R07.9 Chest pain, unspecified; M79.7 Fibromyalgia; M19.90 Unspecified osteoarthritis, unspecified site; Z79.899 Other long term (current) drug therapy; Z88.8 Allergy status to other drugs, medicaments and biological substances; Z88.5 Allergy status to narcotic agent; Z88.3 Allergy status to other anti-infective agents; Z88.1 Allergy status to other antibiotic agents; Z91.040 Latex allergy status; Z91.09 Other allergy status, other than to drugs and biological substances
CPT/HCPCS: 99283; 96372; J1170; J1885

== ENCOUNTER → 2022-02-11 | Outpatient (CLI) | payer MEDICARE, OTHER ==
--- NOTE | 2022-02-12 04:06 | MR ---
EXAMINATION TYPE: MR cervical spine wo/w con DATE OF EXAM: 02/11/2022 COMPARISON: HISTORY: Neck pain, left arm weakness, hx surgery. CONTRAST: Standard multiplanar, multisequence MRI departmental protocol images were obtained without contrast a nd with 8 mL intravenous Gadavist gadolinium contrast. The vertebra have normal alignment. There is metal artifact from anterior fusion surgery at C4 and C5 and C6. There is posterior disc herniation at C3-4 with spinal stenosis. There is 4 mm spinal stenos is. No evidence of any significant cord edema however. The brainstem is intact. Spinal canal is narro wed to 6.5 mm at C6 level. No compression fracture. There is some epidural thickening along the poste rior aspect of the C6 vertebral body that is consistent with scarring. IMPRESSION: There is severe spinal stenosis at C3-4 and measures 4 mm. There is flattening of the cord but no sig nificant edema. There is epidural scarring at C6. Anterior fusion surgery without sign of instability.
== END | disposition home or self-care (01) ==
LOC: RADMRIMAIN 08:59
PROVIDERS: ATTEND Orthopaedic Surgery Orthopaedic Surgery of the Spine
DX: M43.22 Fusion of spine, cervical region (principal); M25.78 Osteophyte, vertebrae; M48.02 Spinal stenosis, cervical region; M50.30 Other cervical disc degeneration, unspecified cervical region; M43.12 Spondylolisthesis, cervical region; M50.323 Other cervical disc degeneration at C6-C7 level; M79.12 Myalgia of auxiliary muscles, head and neck; R29.2 Abnormal reflex; R53.1 Weakness; Z98.1 Arthrodesis status
CPT/HCPCS: 72156; A9585

== ENCOUNTER → 2022-03-18 | Outpatient (CLI) | payer MEDICARE, OTHER ==
--- NOTE | 2022-03-18 16:10 | XR ---
EXAMINATION TYPE: XR chest 2V DATE OF EXAM: 03/18/2022 3:52 PM COMPARISON: None TECHNIQUE: XR chest 2V Frontal and lateral views of the chest. CLINICAL INDICATION:Female, 66 years old with history of Pre-op Xray Z01.818; FINDINGS: Lungs/Pleura: There is no evidence of pleural effusion, focal consolidation, or pneumothorax. Pulmonary vascularity: Unremarkable. Heart/mediastinum: Cardiomediastinal silhouette is unremarkable. Musculoskeletal: No acute osseous pathology. Mild scoliosis changes. Cervical fixation changes in the lower spine. IMPRESSION: No acute cardiopulmonary disease/process.
[2022-03-18 23:25] LABS: Appearance,Urine Cloudy (Clear); Bilirubin,Urine Negative (Negative); Blood,Urine Negative (Negative); Color,Urine Dark Yellow (Yellow); Ketones,Urine Negative (Negative); Nitrite,Urine Positive (Negative); PH, Urine 6.5 (5.0-8.0); Specific Gravity,Urine 1.012 (1.001-1.030); Urobilinogen,Urine 0.2 (0.2,1.0)
[2022-03-19 00:18] LABS: Bacteria,Urine 3+ /HPF (None Seen)
== END | disposition home or self-care (01) ==
LOC: RADXRMAIN 15:34
PROVIDERS: ATTEND Orthopaedic Surgery Orthopaedic Surgery of the Spine
DX: Z01.812 Encounter for preprocedural laboratory examination (principal); Z01.818 Encounter for other preprocedural examination; M48.04 Spinal stenosis, thoracic region
CPT/HCPCS: 71046; 81001

== ENCOUNTER 2022-03-23 06:28 | Day surgery (SDC) | payer MEDICARE, OTHER ==
[2022-03-19 16:02] VITALS: BMI 30.1
[~2022-03-23 06:28] MED LIST: ceFAZolin 1,000 MG in SODIUM CHLORIDE 0.9% IRRIGATIO 1,000 ML IRRIGATION PRN
[2022-03-23] MEDS ORDERED: DEXAMETHASONE SOD PHOSPHATE 4 MG/ML 1 ML VIAL IV ONE (07:07)
[2022-03-23] MEDS ORDERED: LIDOCAINE 1% (10MG/ML) FOR IV START INTRADERMA PRN (07:07)
[2022-03-23] MEDS ORDERED: MIDAZOLAM 2 MG/2 ML VIAL IV PRN (07:07)
[2022-03-23] MEDS ORDERED: ONDANSETRON 4 MG/2 ML VIAL IVP ONE (07:07)
[2022-03-23] MEDS: LACTATED RINGERS 1,000 ML IV SCH ×3 (07:20→19:01)
[2022-03-23] MEDS ORDERED: LIDOCAINE 1% INJ 10MG/ML (20 ML MDV) ONE (07:35)
[2022-03-23] MEDS ORDERED: fentaNYL (PF) 50 MCG/ML 2 ML AMP ONE (07:35)
[2022-03-23] MEDS ORDERED: MIDAZOLAM 2 MG/2 ML VIAL ONE (07:35)
[2022-03-23] MEDS ORDERED: ROCURONIUM 10 MG/ML (5 ML VIAL) IV ONE (07:35)
[2022-03-23] MEDS ORDERED: PHENYLEPHRINE-0.9% NACL SYG 1,000 MCG/10 ML SYRINGE ONE (07:35)
[2022-03-23] MEDS ORDERED: PROPOFOL 10 MG/ML 20 ML VIAL IV ONE (07:35)
[2022-03-23] MEDS ORDERED: SUCCINYLCHOLINE CHLORIDE 200 MG/10 ML VIAL IV ONE (07:35)
[2022-03-23] MEDS ORDERED: GLYCOPYRROLATE 0.2 MG/ML 2 ML VIAL ONE (07:35)
[2022-03-23] MEDS ORDERED: NEOSTIGMINE 1 MG/ML 10 ML VIAL ONE (07:35)
[2022-03-23] MEDS ORDERED: LACTATED RINGERS 1,000 ML IV ONE (07:37)
[2022-03-23] MEDS ORDERED: BUPIVACAINE-EPI 0.5%-1:200,000 10 ML VIAL SQ ONE (08:06)
[2022-03-23] MEDS ORDERED: GELATIN SPONGE,ABSORB (SMALL) 1 EACH SPONGE TOPICAL ONE ×2 (08:24)
[2022-03-23] MEDS ORDERED: THROMBIN (BOVINE) 5,000 UNIT VIAL TOPICAL ONE ×2 (08:24)
[2022-03-23] MEDS ORDERED: HYDROcodone/APAP 5-325MG 1 EACH TAB PO PRN (09:37)
[2022-03-23] MEDS ORDERED: CYCLOBENZAPRINE 10 MG TAB PO PRN (09:38)
[2022-03-23] MEDS ORDERED: LACTULOSE 20 GM/30 ML CUP PO PRN (09:38)
[2022-03-23] MEDS ORDERED: ALBUTEROL HFA INHALER INHALATION PRN (09:38)
--- NOTE | 2022-03-23 09:50 | P.OP ---
Date of Procedure: 03/23/22 Preoperative Diagnosis: Cervical myelopathy, severe cervical stenosis C3 4, retained hardware C4 5 6, neck pain, upper extremity weakness, upper extremity radiculopathy, degenerative disc disease Postoperative Diagnosis: Same with findings of solid fusion at C5 for 5 C5 6 Anesthesia: GETA Pathology: none sent Condition: stable Disposition: PACU Description of Procedure: BRIEF OPERATIVE NOTE Preoperative Diagnosis:Cervical myelopathy, severe cervical stenosis C3 4, retained hardware C4 5 6, neck pain, upper extremity weakness, upper extremity radiculopathy, degenerative disc disease Postoperative Diagnosis:Cervical myelopathy, severe cervical stenosis C3 4, retained hardware C4 5 6, neck pain, upper extremity weakness, upper extremity radiculopathy, degenerative disc disease Procedure: Anterior cervical decompression with discectomy and fusion C3 4 Placement of interbody graft C3 4 Application of anterior cervical plate C3 4 Removal of deep hardware C4 5 6 Exploration of fusion C4 5 C5 6 with findings solid fusion Surgeon: Dr. Quinonez Warehouse Clerk: Benny Ronquillo is present throughout the entire the case persistence during positioning, dissection, exposure, visualization, and all crucial elements of the case as well as closure. Anesthesia: General anesthesia Estimated blood loss: Approximately 100 mL Complications: None apparent Components implanted: [place] anterior cervical plate system with 3.5 and 40 screws with vikos allograft bone graft. We removed the prior anterior cervical plate with 5 vertebral body screws and 3 locking screws with washers Disposition: To recovery room in good stable condition. OPERATIVE INDICATIONS The patient has had long-standing issues in their neck and upper extremities. The patient was having significant worsening of her neck and was found have severe cervical stenosis at C3 4 with evidence of cervical myelopathy. The patient had been through prior surgery at her anterior cervical spine with prior anterior cervical decompression with discectomy and fusion at C4 5 and 6 past. She had adjacent level breakdown above her prior fusion with evidence of stenosis which correlated well with her neck and upper extremity symptoms. The patient has been through conservative treatment. We discussed various treatment options including surgery, and the patient wishes to proceed with surgery We discussed the risk, patient's alternatives and benefits of surgery including but not limited to, risk of bleeding risk of infection, risk of need for further smith rgery, risk of decreased, loss of motion, muscle function, malunion nonunion, hardware failure, nerve damage, paralysis, heart attack, and . OPERATIVE SUMMARY After discussing all the risks, patient alternatives and benefits at length, the patient elected to proceed with surgical intervention, signed informed consent, and presented for their procedure. The patient was seen and examined in the preoperative holding area and the surgical site was marked. The patient was given antibiotics and brought to the operating room. The patient was positioned on the operating room table in a supine position being careful to pad any bony prominences and pressure points. The patient was sedated and intubated by anesthesia in standard fashion. Once the airway and C- spine were stabilized the patient's arms were padded and tucked at her side, with her shoulders gently taped. The head was placed in a donut pad with the neck in good neutral alignment and position. We were careful to maintain the patient's cervical spine and good neutral alignment and position throughout. The patient was prepped and draped in a normal standard fashion. An appropriate timeout and keystone protocol performed. We were able to proceed with the surgery. The local wound area was infiltrated with local anesthetic. An incision was made transversely approximately 2-1/2 cm over the appropriate levels at C4. Dissection was taken down subcutaneously to the level of the platysma which was split in line with its fibers. Dissection was taken with a carotid approach, with the trachea and esophagus medial and the carotid sheath laterally. As able to easily identify the plate as well as the level at C3 4. We dissected down to the anterior surface of the vertebral bodies and the plate. Intraoperative x-ray was taken which showed a marker at the appropriate level at C3 4. With the appropriate level positively confirmed, we were able to proceed with discectomy at the appropriate levels. The plate had some override had the C3 4 disc space I felt we had removed plate for the appropriate fixation. I was able to expose the screws and the entire the plate. The locking screws and washers were removed and the vertebral screws removed as well. There examined and found to be in total. As able to remove the plate from anterior surface. The anterior vertebral bodies at C4 5 and 6 were explored and found have good bridging bone and solid fusion. All of the operative levels were exposed appropriately up to C3 4. The patient had all their twitches back, and there was no evidence of recurrent laryngeal issue. The wound was copiously irrigated and suctioned dry as had been done periodically throughout the case. At the appropriate level/levels, I established an annulotomy with an 11 blade scalpel. A discectomy was performed with a combination of pituitary rongeurs, curettes, a high-speed bur, and Kerrison rongeurs. There is evidence of severe stenosis and posterior osteophytes continue being as well. I was able to remove these and get excellent discectomy with central and bilateral foraminal decompression. The posterior longitudinal ligament was taken down as were any posterior o steophytes. This gave good central and bilateral foraminal decompression. There is no evidence of any dural tear or leak. The endplates were prepared with a high-speed bur. Anterior osteophytes were taken down as well for preparation for graft and plate placement. With the endplates in good parallel position, I was able to size for the appropriate size interbody graft. The wound was irrigated and suctioned dry the graft was prepared and malleted into position at C3 4. It had good alignment and position with the anterior surface flush with the anterior surface of the vertebral bodies at C3 4. With the grafts intact, I was able to measure and contour and appropriate sized plate. The plate was positioned at the midline over the appropriate levels at C3 4. Screw holes were established with a hand drill and drill guide. Screws were placed in good alignment and position with excellent bony purchase. They were seated under the locking device. The construct was checked and found to be stable. Intraoperative x-ray was taken which showed good alignment and position of the implants at the appropriate levels. There was no evidence of any dural tear or leak. Good hemostasis was maintained. The wound was copiously irrigated and suctioned dry as had been done periodically throughout the case. The platysma was closed with absorbable suture. The subcutaneous tissue was olga sed. The subcuticular tissue was closed with absorbable suture. The wound was cleaned and dried and dressed appropriately. A soft cervical collar was placed appropriately. The patient was woken up by anesthesia, extubated, transferred back gently to their hospital bed and brought to the recovery room in good stable condition. The patient will be admitted to the hospital for appropriate postoperative care, medical management and monitoring. We will continue to follow them closely about the postoperative course.
[2022-03-23] MEDS: HYDROmorphone 0.5 MG/0.5 ML SYRINGE IVP PRN ×6 (09:52→22:24)
--- NOTE | 2022-03-23 11:54 | XR ---
EXAMINATION TYPE: XR cervical spine 1V DATE OF EXAM: 03/23/2022 COMPARISON: 08/29/2021 HISTORY: 66-year-old female needle placement TECHNIQUE: Single crosstable lateral intraoperative view FINDINGS: The patient is intubated. There is prior ACDF at C4-C6 levels. Surgical needle is present w ithin the degenerated anterior C3-C4 disc interspace. IMPRESSION: Prior C4-C6 ACDF. Needle at the anterior C3-C4 disc interspace.
--- NOTE | 2022-03-23 12:01 | XR ---
EXAMINATION TYPE: XR cervical spine 1V DATE OF EXAM: 03/23/2022 COMPARISON: NONE HISTORY: 66-year-old female on replacement TECHNIQUE: Single intraoperative crosstable lateral view FINDINGS: Patient is intubated. Interval removal of the previous C4-C6 ACDF and placement of C3-C5 ACDF. There appears to be grade 1 anterolisthesis at C5-C6. IMPRESSION: Interval removal of previous C4-C6 ACF and placement of C3-C5 ACDF.
[2022-03-23] MEDS ORDERED: HYDROmorphone 0.5 MG/0.5 ML SYRINGE IVP ONE (12:59)
[2022-03-23] MEDS: GABAPENTIN 400 MG CAP PO SCH ×2 (16:29→20:54)
[2022-03-23] MEDS: SODIUM CHLORIDE 0.9% 1,000 ML IV SCH (19:01)
[2022-03-23] MEDS: DOCUSATE 100 MG CAP PO SCH (20:54)
[2022-03-23] MEDS: MECLIZINE 25 MG TAB PO SCH (20:54)
[2022-03-23] MEDS: polyethylene glycoL 3350 17 GM POWD.PACK PO SCH (20:54)
[2022-03-23] MEDS ORDERED: LATANOPROST 0.005% OPHTH DROPS 2.5 ML BTL BOTH EYES SCH (21:00)
[2022-03-23] MEDS: oxyCODONE-APAP 5-325MG 1 EACH TAB PO PRN (21:02)
[2022-03-24] MEDS: SODIUM CHLORIDE 0.9% 1,000 ML IV SCH (00:39)
[2022-03-24] MEDS: BENZOCAINE/MENTHOL LOZENG 1 EACH LOZENGE MUCOUS MEM PRN ×2 (04:29→08:02)
[2022-03-24] MEDS: HYDROmorphone 0.5 MG/0.5 ML SYRINGE IVP PRN (04:32)
[2022-03-24] MEDS ORDERED: LEVOTHYROXINE 100 MCG TAB PO SCH (06:30)
[2022-03-24] MEDS ORDERED: PANTOPRAZOLE 40 MG TABLET PO SCH (07:30)
[2022-03-24] MEDS: GABAPENTIN 400 MG CAP PO SCH (07:42)
[2022-03-24] MEDS: polyethylene glycoL 3350 17 GM POWD.PACK PO SCH (07:42)
[2022-03-24] MEDS: DOCUSATE 100 MG CAP PO SCH (07:42)
[2022-03-24] MEDS: MECLIZINE 25 MG TAB PO SCH (07:43)
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
--- NOTE | 2022-03-24 08:50 | P.DS ---
Providers Date of admission: 03/23/2022 Expected date of discharge: 03/24/22 Attending physician: Krystle Quinonez Primary care physician: Jaskaran Pressley - Discharge Diagnosis(es) (1) Status post cervical spinal fusion Current Visit: Yes Status: Acute (2) History of cervical spinal arthrodesis Current Visit: Yes Status: Acute (3) Cervical stenosis of spinal canal Current Visit: Yes Status: Acute (4) Cervical myelopathy Current Visit: Yes Status: Acute (5) Radiculopathy affecting upper extremity Current Visit: Yes Status: Acute (6) Upper extremity weakness Current Visit: Yes Status: Acute (7) Cervicalgia Current Visit: Yes Status: Acute (8) Fibromyalgia Current Visit: Yes Status: Acute (9) Obesity (BMI 30.0-34.9) Current Visit: Yes Status: Acute (10) DDD (degenerative disc disease), cervical Current Visit: Yes Status: Acute (11) GERD (gastroesophageal reflux disease) Current Visit: No Status: Acute Hospital Course: This is a pleasant 66-year-old female who presented with C3-4 severe spinal stenosis, cervical myelopathy, upper extremity weakness, upper extremity radiculopathy, cervical degenerative disc disease, cervicalgia, and history of previous anterior cervical decompression and fusion with retained hardware at C4-5 and C5-6 who failed outpatient conservative therapy. She was admitted for a C3-4 anterior cervical decompression and fusion with removal of hardware at C4-5 and C5-6. The patient tolerated the procedure well and did well post operatively. She states her upper extremity pain has already improved postoperatively. She does have some soreness in her throat. She has been able to eat soft foods, take her pills, and drink liquids. She does feel this has improved as compared to yesterday. She does have a little bit of mucous in her throat which has been ongoing. She does feel she could manage at home. Condition on day of discharge stable. Patient will be discharged home. Patient was cleared preoperatively for surgery by Dr. Pressley. Patient currently denies any nausea, vomiting, fever, or chills. Patient is eating and voiding freely without difficulty. Patient does have permanent catheter intact which is managed in the outpatient setting. Patient may shower Optifoam dressing intact. Patient may remove Optifoam dressing in 3 days and shower without a dressing at that time. Patient should refrain from driving until at least after their first follow-up appointment in the office. Patient should avoid excessive neck flexion, extension, rotation, and lateral sidebending; no overhead lifting; no lifting greater than 10 pounds. MAPS was previously reviewed yesterday. An "Opiod Start Talking" Form has been signed and placed in the patient's chart. A prescription has been written for oxycodone 5 mg/325 mg, take 1 tab every 8 hours as needed for acute pain, dispensed #21. Patient's other medical diagnoses include fibromyalgia, obesity, thyroid disorder, GERD/reflux, history of permanent bladder catheter placement Patient should avoid anti-inflammatory medications over the next 6 weeks postoperatively. Physical Exam on day of discharge: Patient is awake, alert, and oriented 3 Vital signs stable Good chest excursion with deep inspiration and expiration Full range of motion of the cervical spine with adequate flexion, extension, and bilateral rotation Offset Lithographic Press Operator strength, thumb strength, interosseous strength, biceps strength, triceps strength, and shoulder strength positive sustained bilaterally Soft cervical collar intact Mild generalized swelling around the surgical site at the anterior cervical spine No evidence of bruising, erythema, or obvious sign of infection around the anterior cervical spine Incision is clean, dry, and intact; no erythema, purulence, or signs of infection Optifoam dressing intact Procedures: C3-4 anterior cervical decompression and fusion with removal of hardware at C4-5 and C5-6 Patient Condition at Discharge: Stable Plan - Discharge Summary Discharge Rx Participant: Yes New Discharge Prescriptions: New oxyCODONE-APAP 5-325MG [Percocet 5-325 mg] 1 tab PO Q8HR PRN #21 tab PRN Reason: Pain No Action Gabapentin 800 mg PO TID Ibuprofen [Motrin] 800 mg PO Q8H PRN PRN Reason: Pain Levothyroxine Sodium [Synthroid] 100 mcg PO DAILY oxyCODONE-APAP 5-325MG [Percocet 5-325 mg] 1 tab PO Q6H PRN PRN Reason: Pain buPROPion HCL [Wellbutrin XL] 300 mg PO DAILY Docusate [Colace] 100 mg PO BID Cholecalciferol (Vitamin D3) [Vitamin D3] 5,000 unit PO DAILY Multivitamins, Thera [Multivitamin (formulary)] 1 tab PO DAILY Vitamin B Complex 1 cap PO DAILY Bimatoprost [Lumigan 0.01% Ophth Soln] 1 drop BOTH EYES HS Meclizine [Antivert] 25 mg PO BID Fluticasone Nasal [place] [Flonase Nasal [place]] 2 spr EA NOSTRIL DAILY polyethylene glycoL 3350 [Miralax] 17 gm PO BID Pantoprazole [Protonix] 40 mg PO DAILY Cyclobenzaprine [Flexeril] 10 mg PO TID PRN #20 tab PRN Reason: Spasms Solifenacin Succinate [Vesicare] 10 mg PO DAILY Albuterol Inhaler [Ventolin Hfa Inhaler] 1 - 2 puff INHALATION Q6H PRN PRN Reason: Dyspnea Lactulose 20 gm PO DAILY PRN PRN Reason: Constipation Wheat Dextrin [Benefiber] 1 gm PO BID Mirabegron [Myrbetriq] 50 mg PO DAILY Discharge Medication List Gabapentin 800 mg PO TID 09/04/15 [History] Ibuprofen [Motrin] 800 mg PO Q8H PRN 06/30/16 [History] Levothyroxine Sodium [Synthroid] 100 mcg PO DAILY 06/30/16 [History] oxyCODONE-APAP 5-325MG [Percocet 5-325 mg] 1 tab PO Q6H PRN 06/30/16 [History] buPROPion HCL [Wellbutrin XL] 300 mg PO DAILY 02/04/17 [History] Cholecalciferol (Vitamin D3) [Vitamin D3] 5,000 unit PO DAILY 06/16/18 [History] Docusate [Colace] 100 mg PO BID 06/16/18 [History] Multivitamins, Thera [Multivitamin (formulary)] 1 tab PO DAILY 01/23/19 [History] Vitamin B Complex 1 cap PO DAILY 01/23/19 [History] Bimatoprost [Lumigan 0.01% Oph Soln] 1 drop BOTH EYES HS 09/09/19 [History] Fluticasone Nasal [place] [Flonase Nasal [place]] 2 spr EA NOSTRIL DAILY 01/01/20 [History] Meclizine [Antivert] 25 mg PO BID 01/01/20 [History] polyethylene glycoL 3350 [Miralax] 17 gm PO BID 02/11/21 [History] Pantoprazole [Protonix] 40 mg PO DAILY 02/28/21 [History] Cyclobenzaprine [Flexeril] 10 mg PO TID PRN #20 tab 01/15/22 [Rx] Albuterol Inhaler [Ventolin Hfa Inhaler] 1 - 2 puff INHALATION Q6H PRN 03/19/22 [History] Lactulose 20 gm PO DAILY PRN 03/19/22 [History] Mirabegron [Myrbetriq] 50 mg PO DAILY 03/19/22 [History] Solifenacin Succinate [Vesicare] 10 mg PO DAILY 03/19/22 [History] Wheat Dextrin [Benefiber] 1 gm PO BID 03/19/22 [History] oxyCODONE-APAP 5-325MG [Percocet 5-325 mg] 1 tab PO Q8HR PRN #21 tab 03/23/22 [Rx] Follow up Appointment(s)/Referral(s): Krystle Quinonez DO [Doctor of Osteopathic Medicine] - 2 Weeks Activity/Diet/Wound Care/Special Instructions: Keep site clean. May shower with waterproof Optifoarm intact. Do not soak in a tub. After 72 hours postoperatively, patient may remove dressing and then may shower with area uncovered. Leave glue intact and allow it to fray off on its own. May ambulate as tolerated. Avoid heavy or rigorous activity. No repetitive bending twisting or lifting. Soft cervical collar for comfort support as needed. Take medications as prescribed. No overhead work. Discharge Disposition: HOME SELF-CARE
[2022-03-24 08:55] VITALS: BP 129/73; PULSE 89; RESP 18; TEMP 98.3
[2022-03-24] MEDS ORDERED: FLUTICASONE 50MCG/SPRAY NASAL 16GM EA NOSTRIL SCH (09:00)
[2022-03-24] MEDS ORDERED: NON FORMULARY DRUG (Mirabegron [Myrbetriq] 50 MG Tab.Er.24h) PO SCH (09:00)
[2022-03-24] MEDS ORDERED: TROSPIUM CHLORIDE 20 MG TABLET PO SCH (09:00)
[2022-03-24] MEDS ORDERED: CHOLECALCIFEROL 125 MCG (5000 IU) TABLET PO SCH (09:00)
[2022-03-24] MEDS ORDERED: MULTIVITAMINS, THERA 1 EACH TAB PO SCH (09:00)
[2022-03-24] MEDS ORDERED: buPROPion XL 300 MG TAB.ER.24H PO SCH (09:00)
[2022-03-24] MEDS ORDERED: NON FORMULARY DRUG (Vitamin B Complex [Vitamin B Complex] 1 EACH Capsule) PO SCH (09:00)
[2022-03-24] MEDS: oxyCODONE-APAP 5-325MG 1 EACH TAB PO PRN (09:19)
== END 2022-03-24 10:30 | disposition home or self-care (01) ==
LOC: OR 06:28 → 4SSUR 09:32 → OR 03-24 10:30
PROVIDERS: ATTEND Orthopaedic Surgery Orthopaedic Surgery of the Spine
DX: M50.11 Cervical disc disorder with radiculopathy, high cervical region (principal); M48.02 Spinal stenosis, cervical region; Z79.890 Hormone replacement therapy; Z79.891 Long term (current) use of opiate analgesic; Z79.899 Other long term (current) drug therapy; Z88.6 Allergy status to analgesic agent; Z88.1 Allergy status to other antibiotic agents; Z88.5 Allergy status to narcotic agent; Z91.040 Latex allergy status; Z91.048 Other nonmedicinal substance allergy status; Z88.0 Allergy status to penicillin; Z88.8 Allergy status to other drugs, medicaments and biological substances; R53.1 Weakness; Z98.1 Arthrodesis status; E66.9 Obesity, unspecified; M79.7 Fibromyalgia; K21.9 Gastro-esophageal reflux disease without esophagitis; T84.226A Displacement of internal fixation device of vertebrae, initial encounter
CPT/HCPCS: 86900; 86901; 86850; 72020; 22551; 22853; 22845; 22830; C1713; C1762; J2250; J0330; J1100; J2710; J0690 ×2; J2405; J2001; J3010; J2370; J2704; J1170 ×2

== ENCOUNTER 2022-03-25 14:52 | Inpatient (IN) | payer MEDICARE, OTHER ==
[2022-03-25] MEDS ORDERED: SODIUM CHLORIDE 0.9% 500 ML 500 ML IV ONE (15:08)
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
--- NOTE | 2022-03-25 15:35 | XR ---
EXAMINATION TYPE: XR chest 2V DATE OF EXAM: 03/25/2022 COMPARISON: 03/18/22 HISTORY: Shortness of breath TECHNIQUE: Frontal and lateral views of the chest are obtained. FINDINGS: Scattered senescent parenchymal changes noted. Hyperinflation compatible with COPD. Increased density left lower lobe could reflect developing infiltrate. Correlate clinically. Heart size is stable. Mediastinal structures are stable and grossly unremarkable. No evidence for hilar prominence. Degenerative changes dorsal spine. IMPRESSION: 1. Increased density left lower lobe could reflect developing infiltrate. Correlate clinically.
[2022-03-25 15:43] LABS: ALT 27 U/L (4-34); AST 37 U/L (14-36); African American GFR (CKD) >90 (>60 ml/min/1.73 sqM); Albumin 3.9 g/dL (3.5-5.0); Alkaline Phosphatase 118 U/L (38-126); Anion Gap 10 mmol/L; Blood Urea Nitrogen 11 mg/dL (7-17); Calcium 9.4 mg/dL (8.4-10.2); Carbon Dioxide 26 mmol/L (22-30); Chloride 98 mmol/L (98-107); Glucose 117 mg/dL (74-99); Magnesium 1.8 mg/dL (1.6-2.3); Non-African American GFR(CKD) >90 (>60 ml/min/1.73 sqM); Potassium 4.2 mmol/L (3.5-5.1); Sodium 134 mmol/L (137-145); Total Bilirubin 1.1 mg/dL (0.2-1.3); Total Protein 6.5 g/dL (6.3-8.2)
[2022-03-25] MEDS ORDERED: cefTRIAXone IN SWFI 1,000 MG/10 ML SYRINGE IVP STA (16:07)
[2022-03-25] MEDS ORDERED: AZITHROMYCIN 500 MG in SODIUM CHLORIDE 0.9% 250 ML IVPB STA (16:07)
[2022-03-25 16:13] LABS: Appearance,Urine Clear (Clear); Bilirubin,Urine Negative (Negative); Blood,Urine Negative (Negative); Color,Urine Yellow; Glucose,Urine (UA) Negative (Negative); Ketones,Urine Negative (Negative); Leukocyte Esterase,Urine Small (Negative); Mucus,Urine Rare /hpf; Nitrite,Urine Negative (Negative); PH, Urine 7.5 (5.0-8.0); Protein,Urine Trace (Negative); RBC,Urine 5 /hpf (0-5); Specific Gravity,Urine 1.016 (1.001-1.035); Squamous Epithelial Cell,Urine 1 /hpf (0-4); Urobilinogen,Urine <2.0 mg/dL (<2.0); WBC,Urine 9 /hpf (0-5)
[2022-03-25 16:37] LABS: Basophils % (A) 0 %; Eosinophils % (A) 0 %; HCT 37.3 % (34.0-46.0); HGB 12.3 gm/dL (11.4-16.0); Lymphocytes # (A) 1.5 k/uL (1.0-4.8); Lymphocytes % (A) 7 %; Monocytes % (A) 4 %; Neutrophils # (A) 20.5 k/uL (1.3-7.7); Neutrophils % (A) 88 %; Platelet Count 260 k/uL (150-450); RBC 3.97 m/uL (3.80-5.40); RDW 13.4 % (11.5-15.5); WBC 23.2 k/uL (3.8-10.6)
[2022-03-25] MEDS ORDERED: HYDROmorphone 0.5 MG/0.5 ML SYRINGE IVP STA (16:48)
[2022-03-25] MEDS ORDERED: ACETAMINOPHEN TAB 325 MG TAB PO PRN (16:56)
[2022-03-25] MEDS ORDERED: NALOXONE 0.4 MG/ML 1 ML VIAL IV PRN (16:56)
[2022-03-25] MEDS: SODIUM CHLORIDE 0.9% 1,000 ML IV SCH (17:09)
[2022-03-25] MEDS: HYDROmorphone 0.5 MG/0.5 ML SYRINGE IVP PRN (21:48)
[2022-03-25] MEDS: GABAPENTIN 400 MG CAP PO SCH (22:33)
[2022-03-26] MEDS: SODIUM CHLORIDE 0.9% 1,000 ML IV SCH ×4 (00:07→20:20)
[2022-03-26] MEDS: HYDROmorphone 0.5 MG/0.5 ML SYRINGE IVP PRN ×4 (03:48→23:51)
[2022-03-26] MEDS: GABAPENTIN 400 MG CAP PO SCH ×3 (07:32→19:25)
[2022-03-26] MEDS: CHOLECALCIFEROL 125 MCG (5000 IU) TABLET PO SCH (07:32)
[2022-03-26] MEDS: PANTOPRAZOLE 40 MG TABLET PO SCH (07:32)
[2022-03-26] MEDS: DOCUSATE 100 MG CAP PO SCH ×2 (07:32→19:24)
[2022-03-26] MEDS: polyethylene glycoL 3350 17 GM POWD.PACK PO SCH ×2 (07:32→19:25)
[2022-03-26] MEDS: buPROPion XL 300 MG TAB.ER.24H PO SCH (07:33)
[2022-03-26] MEDS: MECLIZINE 25 MG TAB PO SCH ×2 (07:33→19:25)
[2022-03-26] MEDS: LEVOTHYROXINE 100 MCG TAB PO SCH (07:33)
[2022-03-26] MEDS: NON FORMULARY DRUG (Mirabegron [Myrbetriq] 50 MG Tab.Er.24h) PO SCH (07:34)
[2022-03-26] MEDS: TROSPIUM CHLORIDE 20 MG TABLET PO SCH ×2 (07:35→20:19)
[2022-03-26] MEDS: MULTIVITAMINS, THERA 1 EACH TAB PO SCH (07:35)
[2022-03-26] MEDS: oxyCODONE-APAP 10-325MG 1 EACH TAB PO PRN ×2 (07:39→23:43)
[2022-03-26] MEDS ORDERED: NON FORMULARY DRUG (Vitamin B Complex [Vitamin B Complex] 1 EACH Capsule) PO SCH (09:00)
--- NOTE | 2022-03-26 09:13 | P.PN ---
Progress Note - Text Progress Note Date: 03/26/22 Postoperative day #3 Patient is seen and examined today at bedside. Patient underwent anterior cervical decompression with discectomy and fusion at C3 4 for her severe spinal stenosis with removal of her prior plate at C4 5 and 6 on Wednesday. Postoperatively she was doing well and was able to go home however was developing further coughing and a low-grade fever. She presented again for evaluation and was found have some infiltrates suggestive of potential pneumonia. She has been eating well at home. She swallowing adequately. She feels her swelling deep and neck. She feels her arms are doing well. She denies any new neurologic change. She measured her temperature 100.7 Physical Exam Abdomen is soft nontender. Chest has good excursion deep and space expiration The incision site is clean dry and intact. No erythema there is no purulence. Her neck is soft and supple. There is some small bruising. There is no tension at the surgical site. The dressing is intact. There is no obvious drainage. There is no erythema. Extremities have not had neurologic change from prior to surgery. She is able to move her arms quite well. Calves and thighs were soft nontender without evidence of DVT. Assessment/Plan Postoperative day #3 status post anterior cervical decompression with discectomy and fusion C3 4 for her severe cervical stenosis with neck pain and upper extremity radiculopathy with removal of her prior cervical plate at C45 and 6 She has significantly elevated white blood count of 23 and developing infiltrate suggestive of pneumonia The patient is being admitted for IV antibiotics for her pneumonia with her elevated white count. I think she is getting appropriate treatment with her antibiotics and will continue management per medicine In terms of her cervical spine, it appears to be stable without evidence of infection at the site. She is able to swallow foods and is okay to continue her mobilization. We will continue to increase the patient's mobilization with therapy. We will continue pain control with oral or IV medications. We'll continue to follow patient closely.
[2022-03-26] MEDS: HEPARIN SODIUM,PORCINE/PF 5,000 UNIT/0.5 ML SYRINGE SQ SCH ×2 (09:20→19:25)
[2022-03-26] MEDS: BENZOCAINE/MENTHOL LOZENG 1 EACH LOZENGE MUCOUS MEM PRN ×2 (14:36→23:43)
[2022-03-26] MEDS: AZITHROMYCIN 500 MG TAB PO SCH (16:00)
[2022-03-26] MEDS: LATANOPROST 0.005% OPHTH DROPS 2.5 ML BTL BOTH EYES SCH (19:25)
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
[2022-03-27] MEDS: oxyCODONE-APAP 10-325MG 1 EACH TAB PO PRN (04:43)
[2022-03-27] MEDS: LEVOTHYROXINE 100 MCG TAB PO SCH (04:43)
[2022-03-27] MEDS: BENZOCAINE/MENTHOL LOZENG 1 EACH LOZENGE MUCOUS MEM PRN ×3 (04:44→21:30)
[2022-03-27] MEDS: HEPARIN SODIUM,PORCINE/PF 5,000 UNIT/0.5 ML SYRINGE SQ SCH ×2 (07:59→20:54)
[2022-03-27] MEDS: polyethylene glycoL 3350 17 GM POWD.PACK PO SCH ×2 (08:00→20:54)
[2022-03-27] MEDS: PANTOPRAZOLE 40 MG TABLET PO SCH (08:01)
[2022-03-27] MEDS: TROSPIUM CHLORIDE 20 MG TABLET PO SCH ×2 (08:01→22:29)
[2022-03-27] MEDS: NON FORMULARY DRUG (Mirabegron [Myrbetriq] 50 MG Tab.Er.24h) PO SCH (08:01)
[2022-03-27] MEDS: MULTIVITAMINS, THERA 1 EACH TAB PO SCH (08:01)
[2022-03-27] MEDS: MECLIZINE 25 MG TAB PO SCH ×2 (08:01→20:54)
[2022-03-27] MEDS: GABAPENTIN 400 MG CAP PO SCH ×3 (08:01→20:53)
[2022-03-27] MEDS: DOCUSATE 100 MG CAP PO SCH ×2 (08:01→20:54)
[2022-03-27] MEDS: buPROPion XL 300 MG TAB.ER.24H PO SCH (08:01)
[2022-03-27] MEDS: CHOLECALCIFEROL 125 MCG (5000 IU) TABLET PO SCH (08:01)
[2022-03-27] MEDS: SODIUM CHLORIDE 0.9% 1,000 ML IV SCH ×3 (08:09→20:55)
[2022-03-27] MEDS ORDERED: FLUCONAZOLE 150 MG TAB PO STA (08:27)
--- NOTE | 2022-03-27 08:37 | P.PN ---
Subjective Principal diagnosis: Postop pneumonia The patient still has cough and congestion. We will add DuoNeb treatments. Otherwise no voiding difficulties. Objective - Vital Signs Vital signs: Vital Signs Temp 98.3 F 03/27/22 07:21 Pulse 94 03/27/22 07:21 Resp 17 03/27/22 07:21 BP 114/72 03/27/22 07:21 Pulse Ox 97 03/27/22 07:21 FiO2 Intake & Output 03/26/22 03/27/22 03/27/22 18:59 06:59 18:59 Output Total 850 1580 Balance -850 -1580 Output: Urine 850 1580 Other: Voiding Method Ileal Conduit (Right) Ileal Conduit (Right) - Constitutional General appearance: Present: average body habitus - EENT Eyes: Absent: abnormal pupil, anicteric sclerae - Respiratory Respiratory: bilateral: rhonchi - Cardiovascular Rhythm: regular Heart sounds: normal: S1, S2 Abnormal Heart Sounds: Absent: S3 Gallop - Gastrointestinal General gastrointestinal: Present: soft. Absent: tenderness - Neurologic Neurologic: Absent: focal deficits - Labs CBC & Chem 7: 03/25/22 15:19 03/25/22 15:19 Labs: Microbiology - Last 24 Hours (Table) 03/25/22 16:45 Blood Culture - Preliminary Blood No Growth after 24 hours 03/25/22 16:30 Blood Culture - Preliminary Blood No Growth after 24 hours Assessment and Plan (1) Pneumonia Current Visit: Yes Status: Acute Code(s): J18.9 - PNEUMONIA, UNSPECIFIED ORGANISM SNOMED Code(s): 758853617 (2) Atonic urinary bladder Current Visit: No Status: Acute Code(s): N31.2 - FLACCID NEUROPATHIC BLADDER, NOT ELSEWHERE CLASSIFIED SNOMED Code(s): 739733269 (3) Cervical myelopathy Current Visit: No Status: Acute Code(s): G95.9 - DISEASE OF SPINAL CORD, UNSPECIFIED SNOMED Code(s): 852533989 (4) Status post cervical spinal fusion Current Visit: No Status: Acute Code(s): Z98.1 - ARTHRODESIS STATUS SNOMED Code(s): 8363228084426 Plan: We will start with empiric antibody treatment. Multiple allergies. The patient is otherwise full code. Consult orthopedics. GI and DVT prophylaxis. Panculture pending
[2022-03-27] MEDS: IPRATROPIUM-ALBUTEROL 3 ML NEB INHALATION SCH ×4 (08:47→20:40)
--- NOTE | 2022-03-27 08:57 | P.PN ---
Progress Note - Text Progress Note Date: 03/27/22 Orthopedic Spine: History of present illness: Patient is a pleasant 66-year-old female who is seen at the bedside following anterior cervical decompression and fusion performed on 03/23/2022. She had been progressing well postoperatively. Following discharge, she had episode of fever with developed significant cough with congestion. She presented to the emergency part for further evaluation. Imaging showed evidence of infiltrate. She is being treated for pneumonia by medicine. In regards to her cervical spine her cervical pain is well-controlled. She does continue to have some left upper extremity radiculopathy with weakness. She has no new complaints regards to her cervical spine. Patient has been discussed with medicine this morning he states they'll plan to keep the patient in the hospital over the next 1-2 days for further treatment for pneumonia. They have ordered breathing treatments this morning. Patient has not had any fevers since her admittance to the hospital. Patient is eating and voiding freely without difficulty. Patient does have permanent catheter intact which is managed in the outpatient setting. She has not had much of an appetite but is able to eat. Physical Exam Cervical Fusion: Patient is awake, alert, and oriented 3 Post operative day #4 Vital signs stable Adequate chest excursion with deep inspiration and expiration Full range of motion of the cervical spine with adequate flexion, extension, and bilateral rotation Still Operator strength, thumb strength, interosseous strength, biceps strength, triceps strength, and shoulder strength positive sustained bilaterally Some weakness with the left upper extremity with deltoid strength Mild generalized swelling around the surgical site at the anterior cervical spine No evidence of bruising, erythema, or obvious sign of infection around the anterior cervical spine Incision is clean, dry, and intact; no erythema, purulence, or signs of infection Optifoam dressing intact Assessment: C3-4 anterior cervical decompression and fusion with removal of hardware at C4-5 and C5-6 Cervical pain Left upper extremity radiculopathy Left upper cavity weakness C3-4 severe spinal stenosis Cervical myelopathy Cervical degenerative disc disease History of previous anterior cervical decompression at C4-5 and C5-6 Postoperative fever, resolved Pneumonia Plan: 1. Ambulate as tolerated; work with Physical Therapy to increase mobilization 2. Continue pain control with OxyContin 10 mg/325 mg as prescribed as needed for pain control; patient was prescribed this medication at her previous dis charge on 03/24/2022 for postoperative pain management. We are not planning to prescribe further medication during her admission to the hospital. 3. Patient may shower with Optifoam dressing; patient may remove Optifoam in 3 days and shower without a dressing at that time 4. Medical management can continue to manage patient for patient's other medical diagnosis including pneumonia 5. Patient is cleared for discharge from an orthopedic spine standpoint. She will continue with medical treatment during her admission to the hospital. Patient can follow-up with Benny Gómez PA-C or Dr. Clifton Quinonez at [facility] in 2-3 weeks following discharge
[2022-03-27 09:05] LABS: HCT 36.1 % (37.2-46.3); HGB 11.4 g/dL (12.0-15.0); MCH 30.2 pg (27.0-32.0); MCHC 31.6 g/dL (32.0-37.0); MCV 95.8 fL (80.0-97.0); NRBC Per 100 WBC 0 /100 WBCS (0.0-0.0); Platelet Count 299 X 10*3/uL (140-440); RBC 3.77 X 10*6/uL (4.10-5.20); RDW 13.5 % (11.5-14.5); WBC 13.14 X 10*3/uL (4.50-10.00)
[2022-03-27 09:24] LABS: African American GFR (CKD) 108.5 (60.0-200.0); Albumin 3.8 g/dL (3.8-4.9); Albumin/Globulin Ratio 1.73 (1.60-3.17); BUN/Creat Ratio 16.5 Ratio (12.00-20.00); Blood Urea Nitrogen 9.9 mg/dL (9.0-27.0); Calcium 9.2 mg/dL (8.7-10.3); Globulin 2.2 g/dL (1.6-3.3); Non-African American GFR(CKD) 93.7 (60.0-200.0); Total Bilirubin 0.3 mg/dL (0.30-1.20)
[2022-03-27] MEDS: HYDROmorphone 0.5 MG/0.5 ML SYRINGE IVP PRN ×3 (11:59→21:31)
[2022-03-27] MEDS ORDERED: IPRATROPIUM-ALBUTEROL 3 ML NEB INHALATION SCH (12:00)
[2022-03-27] MEDS: AZITHROMYCIN 500 MG TAB PO SCH (16:08)
[2022-03-27] MEDS: LATANOPROST 0.005% OPHTH DROPS 2.5 ML BTL BOTH EYES SCH (20:55)
[2022-03-28] MEDS: HYDROmorphone 0.5 MG/0.5 ML SYRINGE IVP PRN ×6 (00:23→23:53)
[2022-03-28] MEDS: IBUPROFEN 800 MG TAB PO PRN (00:26)
[2022-03-28] MEDS: BENZOCAINE/MENTHOL LOZENG 1 EACH LOZENGE MUCOUS MEM PRN ×2 (04:15→09:07)
[2022-03-28] MEDS: SODIUM CHLORIDE 0.9% 1,000 ML IV SCH ×3 (05:29→21:06)
[2022-03-28] MEDS: LEVOTHYROXINE 100 MCG TAB PO SCH (06:01)
[2022-03-28] MEDS: IPRATROPIUM-ALBUTEROL 3 ML NEB INHALATION SCH ×4 (07:51→19:43)
[2022-03-28] MEDS: HEPARIN SODIUM,PORCINE/PF 5,000 UNIT/0.5 ML SYRINGE SQ SCH ×2 (08:54→20:48)
[2022-03-28] MEDS: TROSPIUM CHLORIDE 20 MG TABLET PO SCH ×2 (08:54→20:48)
[2022-03-28] MEDS: polyethylene glycoL 3350 17 GM POWD.PACK PO SCH ×2 (08:54→20:48)
[2022-03-28] MEDS: GABAPENTIN 400 MG CAP PO SCH ×3 (08:55→20:48)
[2022-03-28] MEDS: NON FORMULARY DRUG (Mirabegron [Myrbetriq] 50 MG Tab.Er.24h) PO SCH (08:55)
[2022-03-28] MEDS: buPROPion XL 300 MG TAB.ER.24H PO SCH (08:55)
[2022-03-28] MEDS: MULTIVITAMINS, THERA 1 EACH TAB PO SCH (08:55)
[2022-03-28] MEDS: CHOLECALCIFEROL 125 MCG (5000 IU) TABLET PO SCH (08:55)
[2022-03-28] MEDS: MECLIZINE 25 MG TAB PO SCH ×2 (08:55→20:48)
[2022-03-28] MEDS: DOCUSATE 100 MG CAP PO SCH ×2 (08:55→20:48)
[2022-03-28] MEDS: PANTOPRAZOLE 40 MG TABLET PO SCH (08:55)
[2022-03-28] MEDS: guaiFENesin-DM 100-10MG/5ML 10 ML CUP PO SCH ×3 (11:51→23:53)
[2022-03-28] MEDS: FLUCONAZOLE 100 MG TAB PO SCH (11:51)
--- NOTE | 2022-03-28 17:52 | P.PN ---
Subjective This is a pleasant 66 years old female who was recently discharged from the hospital for severe cervical spinal stenosis at C3-C4, she underwent C3-C4 decompression and fusion procedure and surgery with orthopedic team and discharged home however she comes back with fever coughing and also with some vomiting. And chest x-ray showing increased density in the left lower lung infiltrate suspicious for pneumonia. Patient today lying in bed looks weak and lethargic but awake and alert, no changes in mental status. She states she is still slightly tachypneic at rest she has vigorous cough and looks weight and she has some phlegm. Sputum culture is requested. Also she's been complaining of from marginal ongoing infection of the placenta fluconazole. Catheter each time she takes antibiotic as she says. We will repeat chest x-ray and labs in the morning. Check procalcitonin Objective - Vital Signs Vital signs: Vital Signs Temp 98.1 F 03/28/22 12:40 Pulse 91 03/28/22 12:40 Resp 20 03/28/22 12:40 BP 148/70 03/28/22 12:40 Pulse Ox 95 03/28/22 12:40 FiO2 Intake & Output 03/27/22 03/28/22 03/28/22 18:59 06:59 18:59 Intake Total 500 180 Output Total 725 1800 Balance -725 -1300 180 Intake: Oral 500 180 Output: Urine 725 1800 Other: Voiding Method Ileal Conduit (Right) Ileal Conduit (Right) Ileal Conduit (Right) - Exam -GENERAL: The patient is alert and oriented x3, not in any acute distress. Looks weak, tired and exhausted, she is obese HEENT: Pupils are round and equally reacting to light. EOMI. No scleral icterus. No conjunctival pallor. Normocephalic, atraumatic. No pharyngeal erythema. No thyromegaly. CARDIOVASCULAR: S1 and S2 present. No murmurs, rubs, or gallops. -PULMONARY: Chest is clear to auscultation, no wheezing or crackles. Slightly tachypneic ABDOMEN: Soft, nontender, nondistended, normoactive bowel sounds. No palpable organomegaly. MUSCULOSKELETAL: No joint swelling or deformity. EXTREMITIES: No cyanosis, clubbing, or pedal edema. NEUROLOGICAL: Gross neurological examination did not reveal any focal deficits. SKIN: No rashes. no petechiae. - Labs CBC & Chem 7: 03/27/22 05:10 03/27/22 05:10 Labs: Microbiology - Last 24 Hours (Table) 03/25/22 16:45 Blood Culture - Preliminary Blood No Growth after 48 hours 03/25/22 16:30 Blood Culture - Preliminary Blood No Growth after 48 hours Assessment and Plan Assessment: Left lower lobe. Pneumonia History of severe cervical C3-C4 stenosis status post decompression surgery and fusion. Vaginal fungal infection Dehydration Plan: This is a pleasant 66 years old female with postop pneumonia left continue with doxycycline and ceftriaxone Also give fluconazole 2 days for fungal infection Continue with gentle hydration at 75 mL/h. Repeat chest x-ray and check labs Labs and medication were reviewed.. Continue same treatment. Continue with symptomatic treatment. Resume home medication. Monitor lytes and vitals. DVT and GI prophylaxis. Further recommendations as per clinical course of the patient DVT prophylaxis: Subcutaneous heparin GI Prophylaxis: Ppi PT/OT: Pending Prognosis is guarded
[2022-03-28] MEDS: LATANOPROST 0.005% OPHTH DROPS 2.5 ML BTL BOTH EYES SCH (20:49)
[2022-03-29] MEDS: HYDROmorphone 0.5 MG/0.5 ML SYRINGE IVP PRN ×3 (03:31→21:54)
[2022-03-29] MEDS: SODIUM CHLORIDE 0.9% 1,000 ML IV SCH ×3 (05:24→21:55)
[2022-03-29] MEDS: LEVOTHYROXINE 100 MCG TAB PO SCH (06:29)
[2022-03-29] MEDS: guaiFENesin-DM 100-10MG/5ML 10 ML CUP PO SCH ×3 (06:30→17:01)
[2022-03-29] MEDS: IPRATROPIUM-ALBUTEROL 3 ML NEB INHALATION SCH ×4 (07:35→19:26)
--- NOTE | 2022-03-29 08:01 | XR ---
EXAMINATION TYPE: XR chest 1V DATE OF EXAM: 03/29/2022 HISTORY: Shortness of breath. COMPARISON: 03/25/2022 TECHNIQUE: Single view of the chest is submitted. FINDINGS: Demonstrated are scattered senescent parenchymal change. There is no evidence for focal infiltrate. The heart is stable. Hilar and mediastinal structures are within normal limits. Degenerative changes are seen of the dorsal spine. IMPRESSION: 1. Chronic changes without evidence for acute pulmonary disease.
[2022-03-29] MEDS: polyethylene glycoL 3350 17 GM POWD.PACK PO SCH ×2 (08:22→21:06)
[2022-03-29] MEDS: FLUCONAZOLE 100 MG TAB PO SCH (08:24)
[2022-03-29] MEDS: GABAPENTIN 400 MG CAP PO SCH ×3 (08:24→21:06)
[2022-03-29] MEDS: PANTOPRAZOLE 40 MG TABLET PO SCH (08:24)
[2022-03-29] MEDS: DOCUSATE 100 MG CAP PO SCH ×2 (08:24→21:05)
[2022-03-29] MEDS: DOXYCYCLINE 100 MG CAP PO SCH ×2 (08:24→21:06)
[2022-03-29] MEDS: TROSPIUM CHLORIDE 20 MG TABLET PO SCH ×2 (08:24→21:06)
[2022-03-29] MEDS: HEPARIN SODIUM,PORCINE/PF 5,000 UNIT/0.5 ML SYRINGE SQ SCH ×2 (08:24→21:06)
[2022-03-29] MEDS: MULTIVITAMINS, THERA 1 EACH TAB PO SCH (08:24)
[2022-03-29] MEDS: buPROPion XL 300 MG TAB.ER.24H PO SCH (08:25)
[2022-03-29] MEDS: NON FORMULARY DRUG (Mirabegron [Myrbetriq] 50 MG Tab.Er.24h) PO SCH (08:25)
[2022-03-29] MEDS: MECLIZINE 25 MG TAB PO SCH ×2 (08:25→21:05)
[2022-03-29] MEDS: CHOLECALCIFEROL 125 MCG (5000 IU) TABLET PO SCH (08:25)
[2022-03-29 12:42] LABS: Basophils # (A) 0.04 X 10*3/uL (0.00-0.10); Basophils % (A) 0.3 %; Eosinophils # (A) 0.17 X 10*3/uL (0.04-0.35); Eosinophils % (A) 1.3 %; HCT 35.1 % (37.2-46.3); HGB 11.5 g/dL (12.0-15.0); Immature Grans, Automated 1.2 %; Lymphocytes % (A) 14.8 %; MCH 30.8 pg (27.0-32.0); MCHC 32.8 g/dL (32.0-37.0); MCV 94.1 fL (80.0-97.0); Mean Platelet Volume 10.7 fL (9.5-12.2); Monocytes # (A) 1.27 X 10*3/uL (0.20-1.00); Monocytes % (A) 9.9 %; NRBC Per 100 WBC 0 /100 WBCS (0.0-0.0); Neutrophils # (A) 9.31 X 10*3/uL (1.80-7.70); Neutrophils % (A) 72.5 %; Platelet Count 312 X 10*3/uL (140-440); RBC 3.73 X 10*6/uL (4.10-5.20); RDW 13.4 % (11.5-14.5); WBC 12.84 X 10*3/uL (4.50-10.00)
[2022-03-29 12:50] LABS: African American GFR (CKD) 109.8 (60.0-200.0); Anion Gap 13.9 mmol/L (10.00-18.00); BUN/Creat Ratio 11.52 Ratio (12.00-20.00); Blood Urea Nitrogen 6.7 mg/dL (9.0-27.0); Calcium 9.3 mg/dL (8.7-10.3); Carbon Dioxide 21.6 mmol/L (20.0-27.5); Magnesium 1.8 mg/dL (1.5-2.4); Non-African American GFR(CKD) 94.7 (60.0-200.0)
[2022-03-29] MEDS: BENZOCAINE/MENTHOL LOZENG 1 EACH LOZENGE MUCOUS MEM PRN (12:54)
[2022-03-29] MEDS: oxyCODONE-APAP 10-325MG 1 EACH TAB PO PRN (12:55)
[2022-03-29] MEDS: LATANOPROST 0.005% OPHTH DROPS 2.5 ML BTL BOTH EYES SCH (21:09)
--- NOTE | 2022-03-29 22:21 | P.PN ---
Subjective This is a pleasant 66 years old female who was recently discharged from the hospital for severe cervical spinal stenosis at C3-C4, she underwent C3-C4 decompression and fusion procedure and surgery with orthopedic team and discharged home however she comes back with fever coughing and also with some vomiting. And chest x-ray showing increased density in the left lower lung infiltrate suspicious for pneumonia. Patient today lying in bed looks weak and lethargic but awake and alert, no changes in mental status. She states she is still slightly tachypneic at rest she has vigorous cough and looks weight and she has some phlegm. Sputum culture is requested. Also she's been complaining of from marginal ongoing infection of the placenta fluconazole. Catheter each time she takes antibiotic as she says. We will repeat chest x-ray and labs in the morning. Check procalcitonin 03/29/2022 Patient feels better, she has chest pain she still have some dyspnea and tachypnea while at rest but she is 10 in bed most of the time. Coughing is better and she is happy with that. She states she's never smoked. She states her vaginal discharge is better Chest x-ray showing no acute process only chronic changes. Vitals stable and hemoglobin 11.5. Pro-calcitonin 0.17. Objective - Vital Signs Vital signs: Vital Signs Temp 98.1 F 03/29/22 05:00 Pulse 82 03/29/22 07:51 Resp 20 03/29/22 05:00 BP 161/85 03/29/22 05:00 Pulse Ox 95 03/29/22 05:00 FiO2 Intake & Output 03/28/22 03/29/22 03/29/22 18:59 06:59 18:59 Intake Total 1790 Output Total 1100 2000 Balance 690 -2000 Intake: Intake, IV Titration 1610 Amount Sodium Chloride 0.9% 1, 1560 000 ml @ 130 mls/hr IV . Q7H42M ANA MARÍA Rx#:[id number] cefTRIAXone 1 gm In 50 Sodium Chloride 0.9% 50 ml @ 100 mls/hr IVPB Q24HR ANA MARÍA Rx#:[id number] Oral 180 Output: Urine 1100 2000 Other: Voiding Method Ileal Conduit (Right) Ileal Conduit (Right) Ileal Conduit (Right) - Exam -GENERAL: The patient is alert and oriented x3, not in any acute distress. Looks weak, tired and exhausted, she is obese HEENT: Pupils are round and equally reacting to light. EOMI. No scleral icterus. No conjunctival pallor. Normocephalic, atraumatic. No pharyngeal erythema. No thyromegaly. CARDIOVASCULAR: S1 and S2 present. No murmurs, rubs, or gallops. -PULMONARY: Chest is clear to auscultation, no wheezing or crackles. Slightly tachypneic ABDOMEN: Soft, nontender, nondistended, normoactive bowel sounds. No palpable organomegaly. MUSCULOSKELETAL: No joint swelling or deformity. EXTREMITIES: No cyanosis, clubbing, or pedal edema. NEUROLOGICAL: Gross neurological examination did not reveal any focal deficits. SKIN: No rashes. no petechiae. - Labs CBC & Chem 7: 03/29/22 07:37 03/29/22 07:37 Labs: Microbiology - Last 24 Hours (Table) 03/25/22 16:45 Blood Culture - Preliminary Blood No Growth after 72 hours 03/25/22 16:30 Blood Culture - Preliminary Blood No Growth after 72 hours Assessment and Plan Assessment: Left lower lobe. Pneumonia History of severe cervical C3-C4 stenosis status post decompression surgery and fusion. Vaginal fungal infection Dehydration Plan: This is a pleasant 66 years old female with postop pneumonia left continue with doxycycline and ceftriaxone Also give fluconazole 2 days for fungal infection Continue with gentle hydration at 75 mL/h. Repeat chest x-ray and check labs Labs and medication were reviewed.. Continue same treatment. Continue with symptomatic treatment. Resume home medication. Monitor lytes and vitals. DVT and GI prophylaxis. Further recommendations as per clinical course of the patient DVT prophylaxis: Subcutaneous heparin GI Prophylaxis: Ppi PT/OT: Pending Prognosis is guarded
[2022-03-30] MEDS: guaiFENesin-DM 100-10MG/5ML 10 ML CUP PO SCH ×3 (00:05→12:14)
[2022-03-30] MEDS: oxyCODONE-APAP 10-325MG 1 EACH TAB PO PRN ×4 (02:41→21:24)
[2022-03-30] MEDS: HYDROmorphone 0.5 MG/0.5 ML SYRINGE IVP PRN ×2 (05:12→12:16)
[2022-03-30] MEDS: LEVOTHYROXINE 100 MCG TAB PO SCH (05:12)
[2022-03-30] MEDS: SODIUM CHLORIDE 0.9% 1,000 ML IV SCH ×4 (05:13→21:15)
[2022-03-30] MEDS: IPRATROPIUM-ALBUTEROL 3 ML NEB INHALATION SCH ×4 (07:13→19:03)
[2022-03-30] MEDS: NON FORMULARY DRUG (Mirabegron [Myrbetriq] 50 MG Tab.Er.24h) PO SCH (07:55)
[2022-03-30] MEDS: CHOLECALCIFEROL 125 MCG (5000 IU) TABLET PO SCH (07:57)
[2022-03-30] MEDS: MULTIVITAMINS, THERA 1 EACH TAB PO SCH (07:57)
[2022-03-30] MEDS: GABAPENTIN 400 MG CAP PO SCH ×3 (07:57→21:12)
[2022-03-30] MEDS: MECLIZINE 25 MG TAB PO SCH ×2 (07:57→21:17)
[2022-03-30] MEDS: DOCUSATE 100 MG CAP PO SCH ×2 (07:57→21:13)
[2022-03-30] MEDS: TROSPIUM CHLORIDE 20 MG TABLET PO SCH ×2 (07:57→21:14)
[2022-03-30] MEDS: FLUCONAZOLE 100 MG TAB PO SCH (07:57)
[2022-03-30] MEDS: buPROPion XL 300 MG TAB.ER.24H PO SCH (07:57)
[2022-03-30] MEDS: HEPARIN SODIUM,PORCINE/PF 5,000 UNIT/0.5 ML SYRINGE SQ SCH ×2 (07:57→21:13)
[2022-03-30] MEDS: polyethylene glycoL 3350 17 GM POWD.PACK PO SCH ×3 (07:58→21:17)
[2022-03-30] MEDS: PANTOPRAZOLE 40 MG TABLET PO SCH (07:58)
[2022-03-30] MEDS: IBUPROFEN 800 MG TAB PO PRN (08:00)
--- NOTE | 2022-03-30 08:23 | P.PN ---
Subjective Principal diagnosis: Postop pneumonia The patient still has cough and congestion. Otherwise no voiding difficulties. The patient is been afebrile. The patient is complaining of muscle spasms in the neck postop surgery. She also quite Motrin written scheduled this as opposed when necessary. Objective - Vital Signs Vital signs: Vital Signs Temp 98.3 F 03/30/22 05:00 Pulse 100 03/30/22 07:29 Resp 20 03/30/22 05:00 BP 143/94 03/30/22 05:00 Pulse Ox 95 03/30/22 05:00 FiO2 Intake & Output 03/29/22 03/30/22 03/30/22 18:59 06:59 18:59 Intake Total 518 250 Output Total 1600 1600 Balance -1082 -1350 Intake: Oral 518 250 Output: Urine 1600 1600 Other: Voiding Method Ileal Conduit (Right) Ileal Conduit (Right) - Constitutional General appearance: Present: obese - EENT Eyes: Absent: abnormal pupil - Neck Neck: Absent: lymphadenopathy - Respiratory Respiratory: bilateral: diminished - Cardiovascular Rhythm: regular Heart sounds: normal: S1, S2 Abnormal Heart Sounds: Absent: S3 Gallop - Gastrointestinal General gastrointestinal: Present: normal bowel sounds, soft. Absent: tenderness - Labs CBC & Chem 7: 03/29/22 07:37 03/29/22 07:37 Labs: Abnormal Lab Results - Last 24 Hours (Table) 03/29/22 03/29/22 03/29/22 Range/Units 07:37 07:37 07:37 WBC 12.84 H (4.50-10.00) X 10*3/uL RBC 3.73 L (4.10-5.20) X 10*6/uL Hgb 11.5 L (12.0-15.0) g/dL Hct 35.1 L (37.2-46.3) % Immature Gran # 0.15 H (0.00-0.04) X 10*3/uL Neutrophils # 9.31 H (1.80-7.70) X 10*3/uL Monocytes # 1.27 H (0.20-1.00) X 10*3/uL BUN 6.7 L (9.0-27.0) mg/dL BUN/Creatinine Ratio 11.52 L (12.00-20.00) Ratio Procalcitonin 0.17 H (0.02-0.09) ng/mL Microbiology - Last 24 Hours (Table) 03/25/22 16:45 Blood Culture - Preliminary Blood No Growth after 96 hours 03/25/22 16:30 Blood Culture - Preliminary Blood No Growth after 96 hours Assessment and Plan (1) Pneumonia Current Visit: Yes Status: Acute Code(s): J18.9 - PNEUMONIA, UNSPECIFIED ORGANISM SNOMED Code(s): 404415547 (2) Atonic urinary bladder Current Visit: No Status: Acute Code(s): N31.2 - FLACCID NEUROPATHIC BLADDER, NOT ELSEWHERE CLASSIFIED SNOMED Code(s): 085047638 (3) Cervical myelopathy Current Visit: No Status: Acute Code(s): G95.9 - DISEASE OF SPINAL CORD, UNSPECIFIED SNOMED Code(s): 842761581 (4) Status post cervical spinal fusion Current Visit: No Status: Acute Code(s): Z98.1 - ARTHRODESIS STATUS SNOMED Code(s): 5062375639108 Plan: We will start with empiric antibody treatment. Continue current regimen of treatment. Add Flexeril or Robaxin. Anticipate discharge in next 24 hours.
[2022-03-30] MEDS: IBUPROFEN 800 MG TAB PO SCH ×3 (09:02→21:13)
--- NOTE | 2022-03-30 09:05 | P.PN ---
Progress Note - Text Progress Note Date: 03/30/22 Orthopedic Spine: History of present illness: Patient is a pleasant 66-year-old female who is seen at the bedside following anterior cervical decompression and fusion performed on 03/23/2022. She had been progressing well postoperatively. Following discharge, she had episode of fever with developed significant cough with congestion. She presented to the emergency part for further evaluation. Imaging showed evidence of infiltrate. She is being treated for pneumonia by medicine. She is undergone treatment for her pneumonia over the weekend. Medicine is planning for discharge home tomorrow, 03/31/2022. In regards to her cervical spine her cervical pain is well-controlled at her cervical spine. She does continue to have some left upper extremity radiculopathy with weakness. She has been expressing some pain towards her left shoulder. She does continue to have weakness with lifting her left shoulder. She has not had significant change regards to her cervical spine. Patient has not had any fevers since her admittance to the hospital. Patient is eating and voiding freely without difficulty. Patient does have permanent catheter intact which is managed in the outpatient setting. She has not had much of an appetite but is able to eat. Physical Exam Cervical Fusion: Patient is awake, alert, and oriented 3 Post operative day #7 Vital signs stable Adequate chest excursion with deep inspiration and expiration Full range of motion of the cervical spine with adequate flexion, extension, and bilateral rotation Bead Flipper strength, thumb strength, interosseous strength, biceps strength, triceps strength, and shoulder strength positive sustained bilaterally Some weakness with the left upper extremity with deltoid strength; patient has difficulty lifting her left shoulder independently No significant swelling around the surgical site at the anterior cervical spine No evidence of bruising, erythema, or obvious sign of infection around the anterior cervical spine Incision is clean, dry, and intact; no erythema, purulence, or signs of infection Optifoam dressing is removed during physical examination Assessment: C3-4 anterior cervical decompression and fusion with removal of hardware at C4-5 and C5-6 Cervical pain Left upper extremity radiculopathy Left upper cavity weakness C3-4 severe spinal stenosis Cervical myelopathy Cervical degenerative disc disease History of previous anterior cervical decompression at C4-5 and C5-6 Postoperative fever, resolved Pneumonia Plan: 1. Ambulate as tolerated; work with Physical Therapy to increase mobilization 2. Continue pain control with OxyContin 10 mg/325 mg as prescribed as needed for pain control; patient was prescribed this medication at her previous discharge on 03/24/2022 for postoperative pain management. We are not planning to prescribe further medication during her admission to the hospital. 3. Dressing was removed over the surgical site of the anterior cervical spine. Surgical site is clean, dry, and intact. Patient may shower without a dressing at that time 4. Medical management can continue to manage patient for patient's other medical diagnosis including pneumonia 5. Patient is cleared for discharge from an orthopedic spine standpoint. She will continue with medical treatment during her admission to the hospital. Patient can follow-up with Benny Gómez PA-C or Dr. Clifton Quinonez at [facility] in 2-3 weeks following discharge
[2022-03-30] MEDS: CYCLOBENZAPRINE 5 MG TAB PO SCH ×3 (09:13→21:13)
[2022-03-30] MEDS: LATANOPROST 0.005% OPHTH DROPS 2.5 ML BTL BOTH EYES SCH (21:15)
[2022-03-31 04:13] VITALS: BP 150/78; RESP 18; TEMP 98.3
[2022-03-31] MEDS: oxyCODONE-APAP 10-325MG 1 EACH TAB PO PRN (05:32)
[2022-03-31] MEDS: LEVOTHYROXINE 100 MCG TAB PO SCH (05:32)
[2022-03-31] MEDS: SODIUM CHLORIDE 0.9% 1,000 ML IV SCH (05:32)
[2022-03-31] MEDS: IPRATROPIUM-ALBUTEROL 3 ML NEB INHALATION SCH (07:08)
[2022-03-31 07:11] VITALS: PULSE 92
--- NOTE | 2022-03-31 08:24 | P.DS ---
Providers Date of admission: 03/25/22 16:59 Attending physician: Jaskaran Pressley Consults: 03/25/22 16:56 Consult Physician Routine Consulting Provider: Krystle Quinonez Consult Reason/Comments: Pneumonia, postop fever Do you want consulting provider notified?: Already Contacted Primary care physician: Jaskaran Pressley - Discharge Diagnosis(es) (1) Pneumonia Current Visit: Yes Status: Acute (2) Atonic urinary bladder Current Visit: No Status: Acute (3) Cervical myelopathy Current Visit: No Status: Acute (4) Status post cervical spinal fusion Current Visit: No Status: Acute Hospital Course: This is a 58-year-old white female who essentially was status post cervical spinal repair but had postop pneumonia 2 days later. The patient was admitted and stayed for about 6 days and empiric antibiotic treatment was started and the patient improved. The patient for 72 hours has had no fever no diarrhea some mild cough residual but doing quite well. Pulse ox normal on room air and the patient is discharged in stable condition to follow-up with me in about a week. Patient Condition at Discharge: Stable Plan - Discharge Summary New Discharge Prescriptions: New RX: Cyclobenzaprine [Flexeril] 5 mg PO TID #90 tab Amoxic-Pot Clav 875-125Mg [Augmentin 875-125] 1 tab PO BID 1 Days #10 tab Continue RX: Gabapentin 800 mg PO TID RX: Ibuprofen [Motrin] 800 mg PO Q8H PRN PRN Reason: Pain RX: Levothyroxine Sodium [Synthroid] 100 mcg PO DAILY RX: buPROPion HCL [Wellbutrin XL] 300 mg PO DAILY RX: Docusate [Colace] 100 mg PO BID RX: Multivitamins, Thera [Multivitamin (formulary)] 1 tab PO DAILY RX: Vitamin B Complex 1 cap PO DAILY RX: Bimatoprost [Lumigan 0.01% Ophth Soln] 1 drop BOTH EYES HS RX: Meclizine [Antivert] 25 mg PO BID RX: polyethylene glycoL 3350 [Miralax] 17 gm PO BID RX: Pantoprazole [Protonix] 40 mg PO DAILY RX: Solifenacin Succinate [Vesicare] 10 mg PO DAILY RX: oxyCODONE-APAP 10-325MG [Percocet 10-325 mg] 1 tab PO Q6HR PRN PRN Reason: Pain RX: Cholecalciferol [Vitamin D3 (125 Mcg = 5000 Iu)] 125 mcg PO DAILY RX: Wheat Dextrin [Benefiber] 1 gm PO BID RX: Mirabegron [Myrbetriq] 50 mg PO DAILY Discharge Medication List Gabapentin 800 mg PO TID 09/04/15 [History] Ibuprofen [Motrin] 800 mg PO Q8H PRN 06/30/16 [History] Levothyroxine Sodium [Synthroid] 100 mcg PO DAILY 06/30/16 [History] buPROPion HCL [Wellbutrin XL] 300 mg PO DAILY 02/04/17 [History] Docusate [Colace] 100 mg PO BID 06/16/18 [History] Multivitamins, Thera [Multivitamin (formulary)] 1 tab PO DAILY 01/23/19 [History] Vitamin B Complex 1 cap PO DAILY 01/23/19 [History] Bimatoprost [Lumigan 0.01% Ophth Soln] 1 drop BOTH EYES HS 09/09/19 [History] Meclizine [Antivert] 25 mg PO BID 01/01/20 [History] polyethylene glycoL 3350 [Miralax] 17 gm PO BID 02/11/21 [History] Pantoprazole [Protonix] 40 mg PO DAILY 02/28/21 [History] Mirabegron [Myrbetriq] 50 mg PO DAILY 03/19/22 [History] Solifenacin Succinate [Vesicare] 10 mg PO DAILY 03/19/22 [History] Wheat Dextrin [Benefiber] 1 gm PO BID 03/19/22 [History] Cholecalciferol [Vitamin D3 (125 Mcg = 5000 Iu)] 125 mcg PO DAILY 03/25/22 [History] oxyCODONE-APAP 10-325MG [Percocet 10-325 mg] 1 tab PO Q6HR PRN 03/25/22 [History] Amoxic-Pot Clav 875-125Mg [Augmentin 875-125] 1 tab PO BID 1 Days #10 tab 03/31/22 [Rx] Cyclobenzaprine [Flexeril] 5 mg PO TID #90 tab 03/31/22 [Rx] Follow up Appointment(s)/Referral(s): Jaskaran Pressley MD [Primary Care Provider] - 1-2 days Kiba,Benny, PAC [PHYSICIAN CREDENTIALS SPECIALIST] - 2 Weeks (Patient may follow-up with Benny Gómez PA-C or Dr. Clifton Quinonez at [facility] in 2-3 weeks following discharge; appointment may have already been set at the time of her discharge previously and it needs to change to 2 weeks after this admission ) Activity/Diet/Wound Care/Special Instructions: 1. Patient may shower with Optifoam dressing intact. 2. Patient may remove Optifoam dressing in 3 days and shower without a dressing at that time. 3. Patient may wear soft cervical collar for comfort support as needed. 4. Patient should refrain from driving until at least after their first follow- up appointment in the office. 5. Patient should avoid excessive cervical flexion, extension, and side bending; avoid overhead lifting; no lifting greater than 10 pounds 6. Take medications as prescribed 7. Patient should avoid anti-inflammatory medications over the next 6 weeks postoperatively 8. Do not soak in tub
[2022-03-31] MEDS: DOCUSATE 100 MG CAP PO SCH (08:41)
[2022-03-31] MEDS: GABAPENTIN 400 MG CAP PO SCH (08:41)
[2022-03-31] MEDS: IBUPROFEN 800 MG TAB PO SCH (08:42)
[2022-03-31] MEDS: MECLIZINE 25 MG TAB PO SCH (08:42)
[2022-03-31] MEDS: MULTIVITAMINS, THERA 1 EACH TAB PO SCH (08:42)
[2022-03-31] MEDS: PANTOPRAZOLE 40 MG TABLET PO SCH (08:42)
[2022-03-31] MEDS: CHOLECALCIFEROL 125 MCG (5000 IU) TABLET PO SCH (08:42)
[2022-03-31] MEDS: CYCLOBENZAPRINE 5 MG TAB PO SCH (08:43)
[2022-03-31] MEDS: HEPARIN SODIUM,PORCINE/PF 5,000 UNIT/0.5 ML SYRINGE SQ SCH (08:43)
[2022-03-31] MEDS: polyethylene glycoL 3350 17 GM POWD.PACK PO SCH (08:43)
[2022-03-31] MEDS: buPROPion XL 300 MG TAB.ER.24H PO SCH (08:44)
[2022-03-31] MEDS: TROSPIUM CHLORIDE 20 MG TABLET PO SCH (08:44)
[2022-03-31] MEDS: NON FORMULARY DRUG (Mirabegron [Myrbetriq] 50 MG Tab.Er.24h) PO SCH (08:45)
[2022-03-31] MEDS ORDERED: guaiFENesin-DM 100-10MG/5ML 10 ML CUP PO PRN (09:49)
== END 2022-03-31 10:30 | disposition home or self-care (01) | DRG 205 ==
LOC: EC 14:52 → 5NMEDONC 16:59
PROVIDERS: ADMIT Family Medicine; ATTEND Family Medicine
DX: J95.89 Other postprocedural complications and disorders of respiratory system, not elsewhere classified (principal); J18.9 Pneumonia, unspecified organism; M50.00 Cervical disc disorder with myelopathy, unspecified cervical region; M48.02 Spinal stenosis, cervical region; E86.0 Dehydration; F32.A Depression, unspecified; G89.4 Chronic pain syndrome; M79.7 Fibromyalgia; M51.36 Other intervertebral disc degeneration, lumbar region; N31.2 Flaccid neuropathic bladder, not elsewhere classified; H40.9 Unspecified glaucoma; G62.9 Polyneuropathy, unspecified; M50.10 Cervical disc disorder with radiculopathy, unspecified cervical region; M19.90 Unspecified osteoarthritis, unspecified site; M51.34 Other intervertebral disc degeneration, thoracic region; E07.9 Disorder of thyroid, unspecified; N89.8 Other specified noninflammatory disorders of vagina; Z20.822 Contact with and (suspected) exposure to COVID-19; Z79.890 Hormone replacement therapy; Z79.899 Other long term (current) drug therapy; Z80.3 Family history of malignant neoplasm of breast; Z80.8 Family history of malignant neoplasm of other organs or systems; Z82.0 Family history of epilepsy and other diseases of the nervous system; Z83.3 Family history of diabetes mellitus; Z93.3 Colostomy status; Z98.1 Arthrodesis status; Z90.49 Acquired absence of other specified parts of digestive tract; Z88.5 Allergy status to narcotic agent; Z88.8 Allergy status to other drugs, medicaments and biological substances; Z88.1 Allergy status to other antibiotic agents; Z91.040 Latex allergy status
CPT/HCPCS: 36415; 71045; 71046; 72020; 80048; 80053; 81001; 83605; 83735; 84145; 85025; 85027; 87040; 87635; 94640; 96361; 96365; 96375; 99285

== ENCOUNTER 2022-06-15 20:56 | Emergency (ER) | payer MEDICARE, OTHER ==
[2022-06-15 21:16] VITALS: TEMP 98.5
[2022-06-15] MEDS ORDERED: HYDROmorphone 1 MG/ML 1 ML SYRINGE IM STA (23:40)
[2022-06-15] MEDS ORDERED: predniSONE 50 MG TAB PO STA (23:41)
[2022-06-15] MEDS ORDERED: ONDANSETRON ODT 4 MG TAB PO STA (23:41)
[2022-06-15] MEDS ORDERED: CYCLOBENZAPRINE 10 MG TAB PO STA (23:41)
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
[2022-06-16] MEDS ORDERED: HYDROmorphone 0.5 MG/0.5 ML SYRINGE IM STA (01:37)
--- NOTE | 2022-06-16 03:09 | CT ---
EXAMINATION TYPE: CT cervical spine wo con DATE OF EXAM: 06/16/2022 COMPARISON: 01/15/2022 HISTORY: POST OP NECK PAIN/STIFF NECK, SURGERY ON 03/23, PT DENIES NUMBNESS & TINGLING CT DLP: 335.7 mGycm Automated exposure control for dose reduction was used. Images obtained from the skull base to T1 vertebra without contrast. The vertebra have normal alignme nt. There is plate with screws fusing anteriorly the cervical spine at C3-4. There is disc prosthesis . The prevertebral soft tissues are unremarkable. Tonsils and adenoids are intact. Epiglottis appears normal. Previous multilevel anterior fusion surgery in the mid and lower cervical spine at C4-5 and C5-6. The re is multilevel cervical hypertrophic facet arthropathy. No compression fracture. Skull base is inta ct. There is normal aeration of the left mastoid air cells. There is mucosal thickening and apparent postsurgical changes involving the right mastoid sinus. There is an intact occipital bone. Impression There is new anterior fusion surgery at C3-4 compared to old exam. There is removal of the plate and screws fusing the vertebra from C4 to C6. No complicating process seen.
[2022-06-16 03:29] VITALS: BP 128/77; PULSE 74; RESP 15
== END 2022-06-16 03:30 | disposition home or self-care (01) ==
LOC: EC 20:56
DX: S16.1XXA Strain of muscle, fascia and tendon at neck level, initial encounter (principal); K21.9 Gastro-esophageal reflux disease without esophagitis; M19.90 Unspecified osteoarthritis, unspecified site; E07.9 Disorder of thyroid, unspecified; F32.A Depression, unspecified; Z88.8 Allergy status to other drugs, medicaments and biological substances; Z88.1 Allergy status to other antibiotic agents; Z88.2 Allergy status to sulfonamides; Z91.040 Latex allergy status; Z79.890 Hormone replacement therapy; Z79.899 Other long term (current) drug therapy; X58.XXXA Exposure to other specified factors, initial encounter
CPT/HCPCS: 72125; 99284; 96372 ×2; J1170 ×2; J7512; Q9967

== ENCOUNTER 2022-09-16 21:47 | Inpatient (IN) | payer MEDICARE, OTHER ==
[2022-09-16] MEDS ORDERED: HYDROmorphone 0.5 MG/0.5 ML SYRINGE IVP STA ×2 (22:19→23:08)
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
[2022-09-16 22:32] LABS: Basophils % (A) 0 %; Eosinophils # (A) 0.3 k/uL (0-0.7); Eosinophils % (A) 3 %; HCT 37.9 % (34.0-46.0); HGB 13.1 gm/dL (11.4-16.0); Lymphocytes # (A) 3.7 k/uL (1.0-4.8); Lymphocytes % (A) 33 %; MCH 31.4 pg (25.0-35.0); MCHC 34.4 g/dL (31.0-37.0); MCV 91.1 fL (80.0-100.0); Mean Platelet Volume 8.2; Monocytes # (A) 0.7 k/uL (0-1.0); Monocytes % (A) 7 %; Neutrophils # (A) 6.2 k/uL (1.3-7.7); Neutrophils % (A) 55 %; Platelet Count 245 k/uL (150-450); RBC 4.17 m/uL (3.80-5.40); RDW 14.6 % (11.5-15.5); WBC 11.2 k/uL (3.8-10.6)
[2022-09-16 22:48] LABS: Calcium 9.9 mg/dL (8.4-10.2); Potassium 4.4 mmol/L (3.5-5.1)
[2022-09-16 22:51] LABS: INR 0.9 (<1.2); Prothrombin Time 9.5 sec (9.0-12.0)
[2022-09-16 22:55] LABS: Partial Thromboplastin Time 21.1 sec (22.0-30.0)
--- NOTE | 2022-09-16 23:26 | CT ---
EXAMINATION TYPE: CT lumbar spine wo con DATE OF EXAM: 09/16/2022 COMPARISON: 08/30/2022 HISTORY: pain after falling. CT DLP: 1449.7 mGycm Automated exposure control for dose reduction was used. Images obtained from the level of T12-S 5 vertebra with no contrast. The lumbar vertebrae have normal alignment. There is posterior fusion surgery with rods and screws from level of L3-S1. There is dege nerative disc space narrowing throughout the lumbar spine. No compression fracture. No paraspinal mas s. There is multilevel laminectomy defect. No focal bone destruction. The sacroiliac joints are intac t. There is some retained fecal material in the rectum. There is suprapubic bladder catheter noted. IMPRESSION: Multilevel fusion surgery. No focal bone destruction. No fracture. No significant change compared to old exam.
[2022-09-16] MEDS ORDERED: NALOXONE 0.4 MG/ML 1 ML VIAL IV PRN (23:45)
[2022-09-17] MEDS: HYDROmorphone 0.5 MG/0.5 ML SYRINGE IVP PRN ×7 (02:05→21:32)
[2022-09-17] MEDS: SODIUM CHLORIDE 0.9% 1,000 ML IV SCH (02:08)
[2022-09-17] MEDS ORDERED: methocarbamoL 750 MG TAB PO PRN (08:15)
[2022-09-17] MEDS ORDERED: ALBUTEROL HFA INHALER INHALATION PRN (08:15)
[2022-09-17] MEDS ORDERED: LACTULOSE 20 GM/30 ML CUP PO PRN (08:15)
[2022-09-17] MEDS ORDERED: IBUPROFEN 800 MG TAB PO PRN (08:15)
[2022-09-17] MEDS: PSYLLIUM HUSK 100% 6 GM PACKET PO SCH ×2 (08:36→21:28)
[2022-09-17] MEDS: polyethylene glycoL 3350 17 GM POWD.PACK PO SCH ×2 (08:36→21:28)
[2022-09-17] MEDS: LEVOTHYROXINE 100 MCG TAB PO SCH (08:37)
[2022-09-17] MEDS: DOCUSATE 100 MG CAP PO SCH ×3 (08:37→21:27)
[2022-09-17] MEDS: CHOLECALCIFEROL 125 MCG (5000 IU) TABLET PO SCH (08:37)
[2022-09-17] MEDS: MULTIVITAMINS, THERA 1 EACH TAB PO SCH (08:37)
[2022-09-17] MEDS: buPROPion XL 300 MG TAB.ER.24H PO SCH (08:37)
[2022-09-17] MEDS: GABAPENTIN 400 MG CAP PO SCH ×3 (08:37→21:27)
[2022-09-17] MEDS: PANTOPRAZOLE 40 MG TABLET PO SCH (08:38)
[2022-09-17] MEDS: MECLIZINE 25 MG TAB PO SCH ×2 (08:38→21:27)
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
[2022-09-17] MEDS ORDERED: NON FORMULARY DRUG (Vitamin B Complex [Vitamin B Complex] 1 EACH Capsule) PO SCH (09:00)
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
[2022-09-17] MEDS: methylPREDNISolone SOD SUCCI 40 MG/ML 1 ML VIAL IV SCH ×2 (10:19→21:27)
[2022-09-17] MEDS: FLUTICASONE 50MCG/SPRAY NASAL 16GM EA NOSTRIL SCH (10:39)
[2022-09-17] MEDS: TROSPIUM CHLORIDE 20 MG TABLET PO SCH ×2 (10:39→21:27)
[2022-09-17 11:40] LABS: Appearance,Urine Clear (Clear); Bacteria,Urine Few /hpf; Bilirubin,Urine Negative (Negative); Blood,Urine Negative (Negative); Color,Urine Light Yellow; Glucose,Urine (UA) Negative (Negative); Ketones,Urine Negative (Negative); Leukocyte Esterase,Urine Trace (Negative); Mucus,Urine Rare /hpf; Nitrite,Urine Positive (Negative); PH, Urine 5.5 (5.0-8.0); Protein,Urine Negative (Negative); RBC,Urine 1 /hpf (0-5); Specific Gravity,Urine 1.009 (1.001-1.035); Squamous Epithelial Cell,Urine 4 /hpf (0-4); Urobilinogen,Urine <2.0 mg/dL (<2.0); WBC,Urine 5 /hpf (0-5)
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
[2022-09-17] MEDS: LATANOPROST 0.005% OPHTH DROPS 2.5 ML BTL BOTH EYES SCH (21:28)
[2022-09-18] MEDS: HYDROmorphone 0.5 MG/0.5 ML SYRINGE IVP PRN ×7 (01:01→21:34)
[2022-09-18] MEDS: SODIUM CHLORIDE 0.9% 1,000 ML IV SCH (01:03)
[2022-09-18] MEDS: PANTOPRAZOLE 40 MG TABLET PO SCH (06:08)
[2022-09-18] MEDS: LEVOTHYROXINE 100 MCG TAB PO SCH (06:08)
--- NOTE | 2022-09-18 08:15 | P.PN ---
Subjective Progress Note Date: 09/18/22 The patient is here essentially for severe DDD back flare. Appreciate multiple consultants input. No voiding difficulties. Objective - Vital Signs Vital signs: Vital Signs Temp 98.5 F 09/18/22 01:37 Pulse 103 H 09/18/22 01:37 Resp 18 09/18/22 01:37 BP 133/74 09/18/22 01:37 Pulse Ox 92 L 09/18/22 01:37 FiO2 Intake & Output 09/17/22 09/18/22 09/18/22 18:59 06:59 18:59 Intake Total 580 Output Total 1600 400 Balance -1020 -400 Intake: Oral 580 Output: Urine 1600 400 Other: Voiding Method Indwelling Catheter Indwelling Catheter # Voids 2 # Bowel Movements 1 - Constitutional General appearance: Present: no acute distress, obese - EENT Eyes: Absent: abnormal pupil - Neck Neck: Absent: lymphadenopathy - Respiratory Respiratory: bilateral: diminished - Cardiovascular Rhythm: regular Heart sounds: normal: S1, S2 Abnormal Heart Sounds: Absent: S3 Gallop - Gastrointestinal General gastrointestinal: Present: soft. Absent: tenderness - Psychiatric Psychiatric: Present: A&O x's 3 - Labs CBC & Chem 7: 09/16/22 22:20 09/16/22 22:20 Labs: Abnormal Lab Results - Last 24 Hours (Table) 09/17/22 Range/Units 11:03 Urine Nitrite Positive H (Negative) Ur Leukocyte Esterase Trace H (Negative) Urine Bacteria Few H (None) /hpf Urine Mucus Rare H (None) /hpf Assessment and Plan (1) History of degenerative disc disease Current Visit: Yes Status: Acute Code(s): Z87.39 - PERSONAL HISTORY OF DISEASES OF THE MS SYS AND CONN TISS SNOMED Code(s): 825920430 (2) Atonic urinary bladder Current Visit: No Status: Acute Code(s): N31.2 - FLACCID NEUROPATHIC BLADDER, NOT ELSEWHERE CLASSIFIED SNOMED Code(s): 230605024 (3) Cervical stenosis of spinal canal Current Visit: No Status: Acute Code(s): M48.02 - SPINAL STENOSIS, CERVICAL REGION SNOMED Code(s): 14549863 (4) DDD (degenerative disc disease), cervical Current Visit: No Status: Acute Code(s): M50.30 - OTHER CERVICAL DISC DEGENERATION, UNSP CERVICAL REGION SNOMED Code(s): 34838013 (5) Esophageal dysfunction Current Visit: No Status: Acute Code(s): K22.4 - DYSKINESIA OF ESOPHAGUS SNOMED Code(s): 826986164 (6) Fibromyalgia Current Visit: No Status: Acute Code(s): M79.7 - FIBROMYALGIA SNOMED Code(s): 628432903 (7) GERD (gastroesophageal reflux disease) Current Visit: No Status: Acute Code(s): K21.9 - GASTRO-ESOPHAGEAL REFLUX DISEASE WITHOUT ESOPHAGITIS SNOMED Code(s): 386535945 (8) Hypothyroidism Current Visit: No Status: Acute Code(s): E03.9 - HYPOTHYROIDISM, UNSPECIFIED SNOMED Code(s): 36365553 Plan: This is a 67-year-old white female admitted for severe back flare. Multilevel degenerative disc disease. Appreciate multiple consultants input. She is resting comfortably. I encouraged physical therapy with ambulation. No new voiding difficulties history of bladder atony. We will continue current regimen of pain control. Encouraged ambulation. We'll continue follow. Hopeful discharge in next 24-48 hours.
--- NOTE | 2022-09-18 08:40 | P.PN ---
Progress Note - Text Progress Note Date: 09/18/22 Orthopedic spine: History of present illness: Patient is a very pleasant 67-year-old female who is well known to our service was seen and examined at the bedside for follow up evaluation of her lumbar spine. Since her admittance to the hospital she has been receiving IV steroid medications and feels her pain has been better controlled in her lower extremities, however, her symptoms are significantly exacerbated when moving her lower extremities. She is not currently experiencing any significant low back pain. She states her symptoms are significant with her lower extremities worse on the left than the right. She does have pain over her thighs. She has difficulty lifting her lower extremities greater on the left than the right. She has a history of multiple surgeries at her lumbar spine with history of previous lumbar fusion L3-S1 performed in 2013. She has significant adjacent level degenerative change was severe stenosis at L2-3. She states at this time she wants to avoid surgical intervention and exhaust all conservative treatment options. She was seen and examined yesterday by pain management. She states she was unaware that she was being seen by pain management. Pain management had discussed injections in the outpatient setting. Patient states she would like to discuss the possibility of injections with pain management during her admission prior to discharge home. Patient continues to be seen in exam by medicine for her other medical diagnoses including hypothyroidism, fibromyalgia, GERD, and the time urinary bladder. Patient does have a permanent bladder catheter. She follows with urology in [place], [place]. She states she does not wish to have oral steroids in the outpatient setting as she has not had benefit with him in the past and they upset her stomach. Physical exam: Patient is awake, alert, and oriented 3 Vital signs stable Good chest excursion with deep inspiration and expiration Abdomen soft nontender Patient currently resting comfortably lying flat in bed Dorsiflexion, plantarflexion, and extensor hallucis longus positive sustained bilaterally Patient has difficulty lifting her legs off the bed independently, greater weakness on the left than the right Increased posterior thigh pain with active range of motion of the lower extremities No signs or symptoms of DVT; no calf pain No pain with internal and external rotation of the hips bilaterally Bladder catheter intact Pertinent studies: CT of the lumbar spine taken on 09/16/2022: L2-3 significant adjacent level degenerative change and spinal stenosis; evidence of L3-S1 fusion with retained hardware which remains in good alignment and good position and appears to be adequately decompressed Assessment: L2-3 severe adjacent level degenerative disc disease L2-3 severe spinal stenosis Bilateral lower extremity weakness greater on the left than the right Bilateral lower extremity radiculopathy greater on the left than the right History of L3-S1 lumbosacral fusion with retained hardware Difficulty with ambulation Permanent bladder catheter Hypothyroidism Fibromyalgia GERD Plan: 1. Patient has been experiencing significant lower extremity radiculopathy with weakness. She has had difficulty with mobility and ambulation. She has a history of multiple surgeries at her lumbar spine with history of previous lumbar fusion L3-S1 performed in 2013. She has significant adjacent level degenerative change was severe stenosis at L2-3. She states at this time she wants to avoid surgical intervention and exhaust all conservative treatment options. She was seen and examined by pain management yesterday. She would like to be further evaluated by pain management again today to discuss the possibility of injections prior to discharge home. She states at bedside she would like to follow-up in the outpatient setting for further evaluation in regards to her lumbar spine, but currently is not planning to undergo further surgical intervention at her lumbar spine. She has had some benefit with IV steroid medication during her admission to the hospital. She has recently taken oral steroid medication in the outpatient setting without benefit. She states his medication upset her stomach. She does not wish to have any steroid medications prescribed for the outpatient setting at the time of discharge. From an orthopedic spine standpoint, patient is clear for discharge. Patient may follow-up with Benny Gómez PA-C or Dr. Clifton Quinonez at [facility] in 2-3 weeks following discharge. She may work with physical therapy to increase ambulation and mobility. 2. Pain management will be further contacted for further reevaluation and to discuss the possibility of injections prior to discharge home 3. Patient will continue to be seen and examined by medicine for her multiple other medical diagnoses
[2022-09-18] MEDS: TROSPIUM CHLORIDE 20 MG TABLET PO SCH ×2 (08:44→20:34)
[2022-09-18] MEDS: MAG HYDROX/AL HYDROX/SIMETH 30 ML CUP PO PRN (08:44)
[2022-09-18] MEDS: MULTIVITAMINS, THERA 1 EACH TAB PO SCH (08:44)
[2022-09-18] MEDS: PSYLLIUM HUSK 100% 6 GM PACKET PO SCH ×3 (08:45→20:34)
[2022-09-18] MEDS: polyethylene glycoL 3350 17 GM POWD.PACK PO SCH ×2 (08:45→20:34)
[2022-09-18] MEDS: MECLIZINE 25 MG TAB PO SCH ×2 (08:45→20:33)
[2022-09-18] MEDS: CHOLECALCIFEROL 125 MCG (5000 IU) TABLET PO SCH (08:45)
[2022-09-18] MEDS: GABAPENTIN 400 MG CAP PO SCH ×3 (08:45→20:34)
[2022-09-18] MEDS: buPROPion XL 300 MG TAB.ER.24H PO SCH (08:45)
[2022-09-18] MEDS: DOCUSATE 100 MG CAP PO SCH ×3 (08:45→20:34)
[2022-09-18] MEDS: methylPREDNISolone SOD SUCCI 40 MG/ML 1 ML VIAL IV SCH ×2 (08:47→20:33)
[2022-09-18] MEDS: FLUTICASONE 50MCG/SPRAY NASAL 16GM EA NOSTRIL SCH (11:27)
[2022-09-18] MEDS: LATANOPROST 0.005% OPHTH DROPS 2.5 ML BTL BOTH EYES SCH (20:33)
[2022-09-19] MEDS: HYDROmorphone 0.5 MG/0.5 ML SYRINGE IVP PRN ×8 (00:38→21:52)
[2022-09-19] MEDS: SODIUM CHLORIDE 0.9% 1,000 ML IV SCH (01:32)
[2022-09-19] MEDS: PANTOPRAZOLE 40 MG TABLET PO SCH (06:16)
[2022-09-19] MEDS: LEVOTHYROXINE 100 MCG TAB PO SCH (06:16)
[2022-09-19] MEDS: PSYLLIUM HUSK 100% 6 GM PACKET PO SCH ×3 (08:15→21:52)
[2022-09-19] MEDS: polyethylene glycoL 3350 17 GM POWD.PACK PO SCH ×2 (08:15→21:51)
[2022-09-19] MEDS: MAG HYDROX/AL HYDROX/SIMETH 30 ML CUP PO PRN (08:15)
[2022-09-19] MEDS: GABAPENTIN 400 MG CAP PO SCH ×3 (08:15→21:52)
[2022-09-19] MEDS: methylPREDNISolone SOD SUCCI 40 MG/ML 1 ML VIAL IV SCH ×2 (08:15→21:51)
[2022-09-19] MEDS: buPROPion XL 300 MG TAB.ER.24H PO SCH (08:16)
[2022-09-19] MEDS: TROSPIUM CHLORIDE 20 MG TABLET PO SCH ×2 (08:16→22:21)
[2022-09-19] MEDS: DOCUSATE 100 MG CAP PO SCH ×3 (08:16→21:52)
[2022-09-19] MEDS: MECLIZINE 25 MG TAB PO SCH ×2 (08:16→21:51)
[2022-09-19] MEDS: CHOLECALCIFEROL 125 MCG (5000 IU) TABLET PO SCH (08:16)
[2022-09-19] MEDS: FLUTICASONE 50MCG/SPRAY NASAL 16GM EA NOSTRIL SCH (08:21)
[2022-09-19] MEDS: MULTIVITAMINS, THERA 1 EACH TAB PO SCH (08:21)
[2022-09-19] MEDS: LATANOPROST 0.005% OPHTH DROPS 2.5 ML BTL BOTH EYES SCH (21:51)
[2022-09-20] MEDS: HYDROmorphone 0.5 MG/0.5 ML SYRINGE IVP PRN ×5 (02:39→16:11)
[2022-09-20] MEDS: SODIUM CHLORIDE 0.9% 1,000 ML IV SCH (03:44)
[2022-09-20] MEDS: LEVOTHYROXINE 100 MCG TAB PO SCH (06:38)
[2022-09-20] MEDS: PANTOPRAZOLE 40 MG TABLET PO SCH (06:38)
[2022-09-20] MEDS: MAG HYDROX/AL HYDROX/SIMETH 30 ML CUP PO PRN ×2 (08:01→19:47)
[2022-09-20] MEDS: DOCUSATE 100 MG CAP PO SCH ×3 (08:02→21:15)
[2022-09-20] MEDS: CHOLECALCIFEROL 125 MCG (5000 IU) TABLET PO SCH (08:02)
[2022-09-20] MEDS: MECLIZINE 25 MG TAB PO SCH ×2 (08:02→21:14)
[2022-09-20] MEDS: buPROPion XL 300 MG TAB.ER.24H PO SCH (08:02)
[2022-09-20] MEDS: methylPREDNISolone SOD SUCCI 40 MG/ML 1 ML VIAL IV SCH ×2 (08:02→21:14)
[2022-09-20] MEDS: MULTIVITAMINS, THERA 1 EACH TAB PO SCH (08:02)
[2022-09-20] MEDS: TROSPIUM CHLORIDE 20 MG TABLET PO SCH ×2 (08:03→21:14)
[2022-09-20] MEDS: FLUTICASONE 50MCG/SPRAY NASAL 16GM EA NOSTRIL SCH (08:03)
[2022-09-20] MEDS: polyethylene glycoL 3350 17 GM POWD.PACK PO SCH ×3 (08:03→21:14)
[2022-09-20] MEDS: PSYLLIUM HUSK 100% 6 GM PACKET PO SCH ×2 (08:06→21:14)
[2022-09-20] MEDS: GABAPENTIN 400 MG CAP PO SCH ×3 (08:10→21:15)
--- NOTE | 2022-09-20 13:23 | P.PN ---
Subjective Progress Note Date: 09/19/22 67-year-old female who presented to the emergency room after a fall. Patient has a history of chronic back pain. Last night she had locked her front door and fell to the ground from acute back pain and pain radiating down posterior right lower leg. Patient does follow with Dr. Quinonez as an outpatient and he had recommended patient come to the ER 2 days ago after patient had called him with complaints of increased back pain, but pt did not. Patient does have a history of urinary retention and has a chronic indwelling catheter. Patient is seen laying on ER stretcher this morning very uncomfortable and reporting back pain. Other medical history as noted below. Patient has been experiencing significant lower extremity radiculopathy with weakness. She has had difficulty with mobility and ambulation. She would like to be further evaluated by pain management again today to discuss the possibility of injections prior to discharge home. She has had some benefit with IV steroid medication during her admission to the hospital. She has recently taken oral steroid medication in the outpatient setting without benefit. She states his medication upset her stomach. She does not wish to have any steroid medications prescribed for the outpatient setting at the time of discharge. Pain management contacted for further reevaluation and to discuss the possibility of injections prior to discharge home -- Patient remains on Dilaudid 0.5 mg IV every 3 hours -- Patient got very upset when discharge recommendations by orthopedic surgery was discussed; reports he doesn't feel she is stable for discharge alternative options were discussed with patient one of which was possible skilled rehab; Patient reports she does not want to go to rehab and would rather go home and just laying pain Objective - Vital Signs Vital signs: Vital Signs Temp 98.2 F 09/19/22 08:00 Pulse 99 09/19/22 08:00 Resp 16 09/19/22 08:00 BP 130/71 09/19/22 08:00 Pulse Ox 95 09/19/22 08:00 FiO2 Intake & Output 09/18/22 09/19/22 09/19/22 18:59 06:59 18:59 Intake Total 480 Output Total 1300 700 950 Balance -820 700 950 Intake: Oral 480 Output: Urine 1300 700 950 Other: Voiding Method Indwelling Catheter # Voids 1,050 # Bowel Movements 1 - Exam PHYSICAL EXAMINATION: GENERAL: The patient is alert and oriented x3, not in any acute distress. Well developed, well nourished. HEENT: Pupils are round and equally reacting to light. EOMI. No scleral icterus. No conjunctival pallor. Normocephalic, atraumatic. No pharyngeal erythema. No thyromegaly. CARDIOVASCULAR: S1 and S2 present. No murmurs, rubs, or gallops. PULMONARY: Chest is clear to auscultation, no wheezing or crackles. ABDOMEN: Soft, nontender, nondistended, normoactive bowel sounds. No palpable organomegaly. MUSCULOSKELETAL: No joint swelling or deformity. EXTREMITIES: No cyanosis, clubbing, or pedal edema. NEUROLOGICAL: Gross neurological examination did not reveal any focal deficits. SKIN: No rashes. - Labs CBC & Chem 7: 09/16/22 22:20 09/16/22 22:20 Assessment and Plan Assessment: 1. Intractable back pain with radiculopathy 2. Severe degenerative disc disease 4. Fibromyalgia 4. Atonic urinary bladder 5. Necessary to reflux disease 6. Arthritis L2-3 severe adjacent level degenerative disc disease L2-3 severe spinal stenosis Bilateral lower extremity weakness greater on the left than the right Bilateral lower extremity radiculopathy greater on the left than the right History of L3-S1 lumbosacral fusion with retained hardware Difficulty with ambulation Permanent bladder catheter Hypothyroidism Fibromyalgia GERD Plan: 1. Patient has been experiencing significant lower extremity radiculopathy with weakness. She has had difficulty with mobility and ambulation. She has a history of multiple surgeries at her lumbar spine with history of previous lumbar fusion L3-S1 performed in 2013. She has significant adjacent level degenerative change was severe stenosis at L2-3. She states at this time she wants to avoid surgical intervention and exhaust all conservative treatment options. She was seen and examined by pain management yesterday. She would like to be further evaluated by pain management again today to discuss the possibility of injections prior to discharge home. She states at bedside she would like to follow-up in the outpatient setting for further evaluation in regards to her lumbar spine, but currently is not planning to undergo further surgical intervention at her lumbar spine. She has had some benefit with IV steroid medication during her admission to the hospital. She has recently taken oral steroid medication in the outpatient setting without benefit. She states his medication upset her stomach. She does not wish to have any steroid medications prescribed for the outpatient setting at the time of discharge. From an orthopedic spine standpoint, patient is clear for discharge. Patient may follow-up with Benny Gómez PA-C or Dr[facility] discharge. She may work with physical therapy to increase ambulation and mobility. 2. Pain management will be further contacted for further reevaluation and to discuss the possibility of injections prior to discharge home 3. Patient will continue to be seen and examined by medicine for her multiple other medical diagnoses
[2022-09-20] MEDS: oxyCODONE-APAP 10-325MG 1 EACH TAB PO PRN (19:50)
[2022-09-20] MEDS: LATANOPROST 0.005% OPHTH DROPS 2.5 ML BTL BOTH EYES SCH (21:16)
[2022-09-21] MEDS: SODIUM CHLORIDE 0.9% 1,000 ML IV SCH (01:33)
[2022-09-21] MEDS: oxyCODONE-APAP 10-325MG 1 EACH TAB PO PRN ×3 (05:11→18:21)
[2022-09-21] MEDS: LEVOTHYROXINE 100 MCG TAB PO SCH (05:11)
[2022-09-21] MEDS: PANTOPRAZOLE 40 MG TABLET PO SCH (05:11)
[2022-09-21] MEDS: CHOLECALCIFEROL 125 MCG (5000 IU) TABLET PO SCH (08:17)
[2022-09-21] MEDS: MECLIZINE 25 MG TAB PO SCH ×2 (08:17→21:15)
[2022-09-21] MEDS: methylPREDNISolone SOD SUCCI 40 MG/ML 1 ML VIAL IV SCH ×2 (08:17→21:15)
[2022-09-21] MEDS: TROSPIUM CHLORIDE 20 MG TABLET PO SCH ×2 (08:18→21:15)
[2022-09-21] MEDS: DOCUSATE 100 MG CAP PO SCH ×3 (08:18→21:15)
[2022-09-21] MEDS: MULTIVITAMINS, THERA 1 EACH TAB PO SCH (08:18)
[2022-09-21] MEDS: buPROPion XL 300 MG TAB.ER.24H PO SCH (08:18)
[2022-09-21] MEDS: GABAPENTIN 400 MG CAP PO SCH ×3 (08:18→21:15)
[2022-09-21] MEDS: FLUTICASONE 50MCG/SPRAY NASAL 16GM EA NOSTRIL SCH (08:19)
[2022-09-21] MEDS: polyethylene glycoL 3350 17 GM POWD.PACK PO SCH ×2 (08:19→21:14)
[2022-09-21] MEDS: FAMOTIDINE 20 MG TAB PO SCH (08:26)
[2022-09-21] MEDS: PSYLLIUM HUSK 100% 6 GM PACKET PO SCH ×2 (08:28→21:14)
--- NOTE | 2022-09-21 08:40 | P.PN ---
Subjective Progress Note Date: 09/21/22 Principal diagnosis: Fall, back pain This is a 67-year-old female who is admitted after a fall. Patient has a history of chronic back pain which has worsened more recently. She has been evaluated by Dr. Quinonez and pain management. She is seen laying in bed this morning still reporting significant back pain. She would like to be reevaluated by pain management for possible injections prior to discharge. Objective - Vital Signs Vital signs: Vital Signs Temp 97.7 F 09/21/22 07:18 Pulse 92 09/21/22 07:18 Resp 18 09/21/22 07:18 BP 146/73 09/21/22 07:18 Pulse Ox 95 09/21/22 07:18 FiO2 Intake & Output 09/20/22 09/21/22 09/21/22 18:59 06:59 18:59 Intake Total 118 Output Total 700 1300 Balance -582 -1300 Intake: Oral 118 Output: Urine 700 1300 Other: Voiding Method Indwelling Catheter # Voids 3 - Constitutional General appearance: Present: cooperative, no acute distress - EENT Eyes: Present: EOMI, PERRLA - Neck Neck: Present: normal ROM. Absent: lymphadenopathy, rigidity - Respiratory Respiratory: bilateral: CTA - Cardiovascular Rhythm: regular Heart sounds: normal: S1, S2 - Gastrointestinal General gastrointestinal: Present: soft. Absent: tenderness - Integumentary Integumentary: Present: normal, normal turgor - Musculoskeletal Musculoskeletal Comment(s): Tenderness to lower back - Psychiatric Psychiatric: Present: A&O x's 3, appropriate affect, intact judgment & insight - Labs CBC & Chem 7: 09/16/22 22:20 09/16/22 22:20 Assessment and Plan (1) Back pain Current Visit: Yes Status: Acute Code(s): M54.9 - DORSALGIA, UNSPECIFIED SNOMED Code(s): 337971947 (2) Atonic urinary bladder Current Visit: No Status: Acute Code(s): N31.2 - FLACCID NEUROPATHIC BLADDER, NOT ELSEWHERE CLASSIFIED SNOMED Code(s): 423939612 (3) Fibromyalgia Current Visit: No Status: Acute Code(s): M79.7 - FIBROMYALGIA SNOMED Code(s): 645360040 (4) History of degenerative disc disease Current Visit: Yes Status: Acute Code(s): Z87.39 - PERSONAL HISTORY OF DISEASES OF THE MS SYS AND CONN TISS SNOMED Code(s): 413530780 (5) Arthritis Current Visit: Yes Status: Acute Code(s): M19.90 - UNSPECIFIED OSTEOA RTHRITIS, UNSPECIFIED SITE SNOMED Code(s): 4408106 (6) GERD (gastroesophageal reflux disease) Current Visit: No Status: Acute Code(s): K21.9 - GASTRO-ESOPHAGEAL REFLUX DISEASE WITHOUT ESOPHAGITIS SNOMED Code(s): 425335494 Plan: Await recommendations from pain management. Appreciate consults. Patient seen and evaluated by nurse practitioner, physician in agreement with plan
[2022-09-21] MEDS: MAG HYDROX/AL HYDROX/SIMETH 30 ML CUP PO PRN ×2 (09:06→18:21)
--- NOTE | 2022-09-21 10:14 | P.PN ---
Progress Note - Text Progress Note Date: 09/21/22 The patient is seen and examined at bedside today. Her daughter is with her in the room. Patient says that her pain may have slightly improved but it comes and goes. She was able to walk the hallways yesterday. She says however her legs still feel like to give we go numb. She denies any changes in bowel bladder function. They've been monitoring her heart rate is well. Today she is afebrile Lower extremities have sustained dorsal flexion plantar flexion and EHL. She is bridgett when she tries to move in her back but she is able to sit up and lift her thighs calves and feet. 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 She would like to try to obtain interventional pain management and epidural steroid injections targeting L2-3 level and I think that is appropriate for her. We discussed the possibility of surgical intervention at her lumbar spine and I think this is a reasonable option for her. She would still like to hold off on pursuing any surgical intervention and will continue with conservative management. She is neurologically stable and it is okay from a spine standpoint for her to discharge home when she is stable from medicine and her pains adequately controlled from pain management service. We will follow her up an outpatient basis.
[2022-09-21] MEDS: LATANOPROST 0.005% OPHTH DROPS 2.5 ML BTL BOTH EYES SCH (21:14)
[2022-09-21] MEDS ORDERED: HYDROmorphone 0.5 MG/0.5 ML SYRINGE IVP STA (21:49)
[2022-09-22] MEDS: SODIUM CHLORIDE 0.9% 1,000 ML IV SCH ×2 (00:23→20:47)
[2022-09-22] MEDS: oxyCODONE-APAP 10-325MG 1 EACH TAB PO PRN ×4 (02:16→20:44)
[2022-09-22] MEDS: PANTOPRAZOLE 40 MG TABLET PO SCH (05:52)
[2022-09-22] MEDS: LEVOTHYROXINE 100 MCG TAB PO SCH (05:52)
[2022-09-22] MEDS ORDERED: IV FLUID CONTINUATION 1,000 ML IV ONE (06:48)
[2022-09-22] MEDS ORDERED: SODIUM CHLORIDE 0.9% 1,000 ML IV ONE (07:07)
[2022-09-22] MEDS ORDERED: MIDAZOLAM 2 MG/2 ML VIAL ONE (07:21)
[2022-09-22] MEDS ORDERED: fentaNYL (PF) 50 MCG/ML 2 ML AMP ONE (07:21)
[2022-09-22] MEDS ORDERED: methylPREDNISolone ACETATE 80 MG/ML 1 ML VIAL ONE (07:21)
[2022-09-22] MEDS ORDERED: IOPAMIDOL M200 10 ML VIAL ONE (07:21)
--- NOTE | 2022-09-22 07:32 | P.PCN ---
Date of Procedure: 09/22/22 Procedure(s) Performed: PREOPERATIVE DIAGNOSIS: 1- Lumbar Degenerative Disc Diseases 2-Lumbar Radiculopathy. 3-lumbar laminectomy at L3 through S1 POSTOPERATIVE DIAGNOSIS: Same as preop diagnosis. PROCEDURE 1. Lumbar epidural steroid injection under fluoroscopic guidance at the L2-3 level. (Fluoroscopy imaging was available in radiology department) 2. Lumbar epidurogram. ANESTHESIA: moderate sedation with intravenous Versed 2 mg ,and fentanyle 100 Mcg Sedation start time : 724 Sedation end time : 728 EBL: Minimal PROCEDURE INDICATION: The patient with low back pain and radiculitis symptoms unresponsive to conservative treatment. Fluoroscopy was used to optimize visualization of the needle placement and to maximize safety. PROCEDURE DESCRIPTION / TECHNIQUE: The patient was seen and identified in the preoperative area. Risks, benefits, complications including but not limited to infections ,bleeding ,allergic reaction to the medications ,nerve damage and not complete pain releife , and alternatives were discussed with the patient. The patient agreed to proceed with the procedure and signed the consent. IV was started, and vital signs were stable. Patient was taken to the OR and time out was completed. The patient was placed in the prone position on procedure table and a pillow was placed under the abdomen to reduce lumbar lordosis. The lumbosacral area was prepped and draped in the usual sterile fashion.ere closely monitored during the procedure. Conscious sedation was used during the procedure to decrease patients anxiety. Vital signs was monitered during the entire procedure. Using anterior-posterior fluoroscopy, the L2-3 interlaminar space was identified and the skin over this site was marked and then infiltrated with 1% lidocaine subcutaneously. Subsequently, a 20-gauge Tuohy epidural needle was inserted and advanced toward the epidural space using the ``Loss of resistance technique and guided by AP and lateral fluoroscopy. The correct needle position in the e pidural space was verified with the injection of 2 mL of the water soluble contrast dye Isovue 200 contrast and observing an excellent epidurogram with the epidural spread of the dye, after negative aspiration for blood and CSF and in the absence of paresthesias. Again after negative aspiration, a 6 ml mixture containing 80 mg of Depo-medrol ( Preservetive Free ), and 2 ml of preservative free Normal Saline, and 2 ml of preservative free lidocaine 1% solution was injected and a washout of epidurogram was seen. Needle was withdrawn intact, skin was cleansed, and bandages were applied. COMPLICATIONS: None DISPOSITION / PLANS: The patient was placed in a supine position and transferred to the recovery area in a stable condition for observation. There was no evidence of lower extremity motor or sensory deficit after the procedure. Patient was discharged from the recovery room after meeting discharge criteria. Home discharge instructions were given to the patient by the staff. The patient was reexamined prior to discharge. The patient will schedule a follow up in the clinic in 2-4 weeks.
[2022-09-22] MEDS: MULTIVITAMINS, THERA 1 EACH TAB PO SCH (08:07)
[2022-09-22] MEDS: FAMOTIDINE 20 MG TAB PO SCH (08:07)
[2022-09-22] MEDS: DOCUSATE 100 MG CAP PO SCH ×3 (08:07→20:44)
[2022-09-22] MEDS: MECLIZINE 25 MG TAB PO SCH ×2 (08:07→20:45)
[2022-09-22] MEDS: CHOLECALCIFEROL 125 MCG (5000 IU) TABLET PO SCH (08:07)
[2022-09-22] MEDS: GABAPENTIN 400 MG CAP PO SCH ×3 (08:09→20:43)
[2022-09-22] MEDS: methylPREDNISolone SOD SUCCI 40 MG/ML 1 ML VIAL IV SCH ×2 (08:10→20:44)
[2022-09-22] MEDS: TROSPIUM CHLORIDE 20 MG TABLET PO SCH ×2 (08:10→20:44)
[2022-09-22] MEDS: polyethylene glycoL 3350 17 GM POWD.PACK PO SCH ×2 (08:10→20:42)
[2022-09-22] MEDS: PSYLLIUM HUSK 100% 6 GM PACKET PO SCH ×2 (08:10→20:43)
[2022-09-22] MEDS: buPROPion XL 300 MG TAB.ER.24H PO SCH (08:14)
[2022-09-22] MEDS ORDERED: HYDROmorphone 0.5 MG/0.5 ML SYRINGE IVP STA (08:21)
[2022-09-22] MEDS: FLUTICASONE 50MCG/SPRAY NASAL 16GM EA NOSTRIL SCH (08:25)
--- NOTE | 2022-09-22 09:09 | P.PN ---
Subjective Progress Note Date: 09/22/22 Principal diagnosis: Fall, back pain This is a 67-year-old female who is admitted after a fall. Patient has a history of chronic back pain which has worsened more recently. She has been evaluated by Dr. Quinonez and pain management. She is seen laying in bed this morning still reporting significant back pain. She would like to be reevaluated by pain management for possible injections prior to discharge. 09/22/2022 Patient received a lumbar epidural steroid injection this morning just arrived back to her room. She is seen laying in bed complaining of back pain and is very uncomfortable. Nursing staff reports pain was well controlled overnight. Objective - Vital Signs Vital signs: Vital Signs Temp 97.4 F L 09/22/22 07:48 Pulse 96 09/22/22 07:48 Resp 18 09/22/22 07:48 BP 127/78 09/22/22 07:48 Pulse Ox 95 09/22/22 07:48 FiO2 Intake & Output 09/21/22 09/22/22 09/22/22 18:59 06:59 18:59 Intake Total 100 Output Total 1700 2100 Balance -1700 -2100 100 Intake: IV 100 Output: Urine 1700 2100 Other: Voiding Method Indwelling Catheter - Constitutional General appearance: Present: cooperative, no acute distress - EENT Eyes: Present: EOMI, PERRLA - Neck Neck: Present: normal ROM. Absent: lymphadenopathy, rigidity - Respiratory Respiratory: bilateral: CTA - Cardiovascular Rhythm: regular Heart sounds: normal: S1, S2 - Gastrointestinal General gastrointestinal: Present: soft. Absent: tenderness - Integumentary Integumentary: Present: normal, normal turgor - Musculoskeletal Musculoskeletal Comment(s): tenderness to lower back - Psychiatric Psychiatric: Present: A&O x's 3, appropriate affect, intact judgment & insight - Labs CBC & Chem 7: 09/16/22 22:20 09/16/22 22:20 Assessment and Plan (1) Back pain Current Visit: Yes Status: Acute Code(s): M54.9 - DORSALGIA, UNSPECIFIED SNOMED Code(s): 462811550 (2) Atonic urinary bladder Current Visit: No Status: Acute Code(s): N31.2 - FLACCID NEUROPATHIC BLADDER, NOT ELSEWHERE CLASSIFIED SNOMED Code(s): 982785614 (3) Fibromyalgia Current Visit: No Status: Acute Code(s): M79.7 - FIBROMYALGIA SNOMED Code(s): 168068223 (4) History of degenerative disc disease Current Visit: Yes Status: Acute Code(s): Z87.39 - PERSONAL HISTORY OF DISEASES OF THE MS SYS AND CONN TISS SNOMED Code(s): 414555892 (5) Arthritis Current Visit: Yes Status: Acute Code(s): M19.90 - UNSPECIFIED OSTEOARTHRITIS, UNSPECIFIED SITE SNOMED Code(s): 7183541 (6) GERD (gastroesophageal reflux disease) Current Visit: No Status: Acute Code(s): K21.9 - GASTRO-ESOPHAGEAL REFLUX DISEASE WITHOUT ESOPHAGITIS SNOMED Code(s): 299491485 Plan: Patient given one-time dose of 0.5 mg Dilaudid. Continue to monitor, anticipate patient will feel better this afternoon. Patient seen and evaluated by nurse practitioner, physician in agreement with plan
--- NOTE | 2022-09-22 11:24 | FL ---
Fluoroscopy INDICATION: Pain FINDINGS: Fluoroscopy time: 2 seconds. DAP: 0.60601 mGycm^2 Images obtained: 2. IMPRESSIONS: 1. Documentation of fluoroscopy.
[2022-09-22] MEDS: LATANOPROST 0.005% OPHTH DROPS 2.5 ML BTL BOTH EYES SCH (20:43)
[2022-09-23] MEDS: oxyCODONE-APAP 10-325MG 1 EACH TAB PO PRN (03:25)
[2022-09-23] MEDS: PANTOPRAZOLE 40 MG TABLET PO SCH (06:13)
[2022-09-23] MEDS: LEVOTHYROXINE 100 MCG TAB PO SCH (06:13)
--- NOTE | 2022-09-23 08:53 | P.DS ---
Providers Date of admission: 09/21/22 09:23 Attending physician: Jaskaran Pressley Consults: 09/16/22 23:45 Consult Physician Routine Consulting Provider: Krystle Quinonez Consult Reason/Comments: acute on chronic back pain Do you want consulting provider notified?: Yes Primary care physician: Jaskaran Pressley - Discharge Diagnosis(es) (1) History of degenerative disc disease Current Visit: Yes Status: Acute (2) Atonic urinary bladder Current Visit: No Status: Acute (3) Cervical stenosis of spinal canal Current Visit: No Status: Acute (4) DDD (degenerative disc disease), cervical Current Visit: No Status: Acute (5) Esophageal dysfunction Current Visit: No Status: Acute (6) Fibromyalgia Current Visit: No Status: Acute (7) GERD (gastroesophageal reflux disease) Current Visit: No Status: Acute (8) Hypothyroidism Current Visit: No Status: Acute Hospital Course: This is a discharge summary 67-year-old white female who is essentially admitted for severe chronic back pain secondary to DDD of the lumbar spine with history of previous lumbar fusion. The patient was stabilized with appropriate pain medication and ended up having epidural steroid which helped the patient significantly. The patient was ambulating without significant pain only d ischarged in stable condition follow-up she doesn't understand her overall prognosis and will follow-up with me in about 7 days. Patient Condition at Discharge: Fair Plan - Discharge Summary New Discharge Prescriptions: Continue RX: Gabapentin 800 mg PO TID RX: Ibuprofen [Motrin] 800 mg PO Q8H PRN PRN Reason: Pain RX: Levothyroxine Sodium [Synthroid] 100 mcg PO DAILY RX: buPROPion HCL [Wellbutrin XL] 300 mg PO DAILY RX: Docusate [Colace] 100 mg PO TID RX: Multivitamins, Thera [Multivitamin (formulary)] 1 tab PO DAILY RX: Vitamin B Complex 1 cap PO DAILY RX: Bimatoprost [Lumigan 0.01% Ophth Soln] 1 drop BOTH EYES HS RX: Meclizine [Antivert] 25 mg PO BID RX: polyethylene glycoL 3350 [Miralax] 17 gm PO BID RX: Pantoprazole [Protonix] 40 mg PO DAILY RX: Solifenacin Succinate [Vesicare] 10 mg PO DAILY RX: oxyCODONE-APAP 10-325MG [Percocet 10-325 mg] 1 tab PO Q6HR PRN PRN Reason: Pain RX: Cholecalciferol [Vitamin D3 (125 Mcg = 5000 Iu)] 125 mcg PO DAILY RX: Fluticasone Nasal [place] [Flonase Nasal [place]] 1 - 2 spr EA NOSTRIL DAILY RX: Wheat Dextrin [Benefiber] 1 gm PO BID RX: Albuterol Inhaler [Ventolin Hfa Inhaler] 2 puff INHALATION RT-QID PRN PRN Reason: shortness of breath RX: Lactulose 30 gm PO DAILY PRN PRN Reason: constipation RX: methocarbamoL [Robaxin-750] 750 mg PO TID PRN PRN Reason: Muscle Spasm Discharge Medication List Gabapentin 800 mg PO TID 09/04/15 [History] Ibuprofen [Motrin] 800 mg PO Q8H PRN 06/30/16 [History] Levothyroxine Sodium [Synthroid] 100 mcg PO DAILY 06/30/16 [History] buPROPion HCL [Wellbutrin XL] 300 mg PO DAILY 02/04/17 [History] Docusate [Colace] 100 mg PO TID 06/16/18 [History] Multivitamins, Thera [Multivitamin (formulary)] 1 tab PO DAILY 01/23/19 [History] Vitamin B Complex 1 cap PO DAILY 01/23/19 [History] Bimatoprost [Lumigan 0.01% Ophth Soln] 1 drop BOTH EYES HS 09/09/19 [History] Meclizine [Antivert] 25 mg PO BID 01/01/20 [History] polyethylene glycoL 3350 [Miralax] 17 gm PO BID 02/11/21 [History] Pantoprazole [Protonix] 40 mg PO DAILY 02/28/21 [History] Solifenacin Succinate [Vesicare] 10 mg PO DAILY 03/19/22 [History] Wheat Dextrin [Benefiber] 1 gm PO BID 03/19/22 [History] Cholecalciferol [Vitamin D3 (125 Mcg = 5000 Iu)] 125 mcg PO DAILY 03/25/22 [History] oxyCODONE-APAP 10-325MG [Percocet 10-325 mg] 1 tab PO Q6HR PRN 03/25/22 [History] Albuterol Inhaler [Ventolin Hfa Inhaler] 2 puff INHALATION RT-QID PRN 09/17/22 [History] Fluticasone Nasal [place] [Flonase Nasal [place]] 1 - 2 spr EA NOSTRIL DAILY 09/17/22 [History] Lactulose 30 gm PO DAILY PRN 09/17/22 [History] methocarbamoL [Robaxin-750] 750 mg PO TID PRN 09/17/22 [History] Follow up Appointment(s)/Referral(s): Benny Gómez PAC [PHYSICIAN PROP [facility]] - 3 Weeks (Patient may follow-up with Benny Gómez PA-C or Dr. Clifton Quinonez at [facility] in 2-3 weeks following discharge. ) Jaskaran Pressley MD [Primary Care Provider] - 3 Days Activity/Diet/Wound Care/Special Instructions: 1. Patient may utilize walker or other aid to aid in ambulation as needed Discharge/Stand Alone Forms: [facility] Instructions
[2022-09-23 09:03] VITALS: BP 125/72; PULSE 80; RESP 16; TEMP 98.1
[2022-09-23] MEDS: FAMOTIDINE 20 MG TAB PO SCH (09:04)
[2022-09-23] MEDS: DOCUSATE 100 MG CAP PO SCH (09:04)
[2022-09-23] MEDS: methylPREDNISolone SOD SUCCI 40 MG/ML 1 ML VIAL IV SCH (09:04)
[2022-09-23] MEDS: MULTIVITAMINS, THERA 1 EACH TAB PO SCH (09:04)
[2022-09-23] MEDS: CHOLECALCIFEROL 125 MCG (5000 IU) TABLET PO SCH (09:04)
[2022-09-23] MEDS: MECLIZINE 25 MG TAB PO SCH (09:04)
[2022-09-23] MEDS: PSYLLIUM HUSK 100% 6 GM PACKET PO SCH (09:05)
[2022-09-23] MEDS: FLUTICASONE 50MCG/SPRAY NASAL 16GM EA NOSTRIL SCH (09:05)
[2022-09-23] MEDS: polyethylene glycoL 3350 17 GM POWD.PACK PO SCH (09:05)
[2022-09-23] MEDS: TROSPIUM CHLORIDE 20 MG TABLET PO SCH (09:05)
[2022-09-23] MEDS: buPROPion XL 300 MG TAB.ER.24H PO SCH (09:14)
[2022-09-23] MEDS: GABAPENTIN 400 MG CAP PO SCH (09:14)
[2022-09-23] MEDS: MAG HYDROX/AL HYDROX/SIMETH 30 ML CUP PO PRN (10:37)
--- NOTE | 2022-09-24 21:43 | P.PN ---
Subjective Progress Note Date: 09/20/22 67-year-old female who presented to the emergency room after a fall. Patient has a history of chronic back pain. Last night she had locked her front door and fell to the ground from acute back pain and pain radiating down posterior right lower leg. Patient does follow with Dr. Quinonez as an outpatient and he had recommended patient come to the ER 2 days ago after patient had called him with complaints of increased back pain, but pt did not. Patient does have a history of urinary retention and has a chronic indwelling catheter. Patient is seen laying on ER stretcher this morning very uncomfortable and reporting back pain. Other medical history as noted below. Patient has been experiencing significant lower extremity radiculopathy with weakness. She has had difficulty with mobility and ambulation. She would like to be further evaluated by pain management again today to discuss the possibility of injections prior to discharge home. She has had some benefit with IV steroid medication during her admission to the hospital. She has recently taken oral steroid medication in the outpatient setting without benefit. She states his medication upset her stomach. She does not wish to have any steroid medications prescribed for the outpatient setting at the time of discharge. Pain management contacted for further reevaluation and to discuss the possibility of injections prior to discharge home -- Patient remains on Dilaudid 0.5 mg IV every 3 hours -- Patient got very upset when discharge recommendations by orthopedic surgery was discussed; reports he doesn't feel she is stable for discharge alternative options were discussed with patient one of which was possible skilled rehab; Patient reports she does not want to go to rehab and would rather go home and just laying pain ----67-year-old female who is admitted after a fall. Patient has a history of chronic back pain which has worsened more recently. She has been evaluated by Dr. Quionnez and pain management. She is seen laying in bed this morning still reporting significant back pain. She would like to be reevaluated by pain management for possible injections prior to discharge. Objective - Vital Signs Vital signs: Vital Signs Temp 97.7 F 09/20/22 07:20 Pulse 97 09/20/22 07:20 Resp 18 09/20/22 07:20 BP 129/70 09/20/22 07:20 Pulse Ox 97 09/20/22 07:20 FiO2 Intake & Output 09/19/22 09/20/22 09/20/22 18:59 06:59 18:59 Intake Total 480 Output Total 2049 2299 Balance -1570 -2300 Intake: Oral 480 Output: Urine 2049 2299 Other: Voiding Method Indwelling Catheter # Bowel Movements 1 - Exam PHYSICAL EXAMINATION: GENERAL: The patient is alert and oriented x3, not in any acute distress. Well developed, well nourished. HEENT: Pupils are round and equally reacting to light. EOMI. No scleral icterus. No conjunctival pallor. Normocephalic, atraumatic. No pharyngeal erythema. No thyromegaly. CARDIOVASCULAR: S1 and S2 present. No murmurs, rubs, or gallops. PULMONARY: Chest is clear to auscultation, no wheezing or crackles. ABDOMEN: Soft, nontender, nondistended, normoactive bowel sounds. No palpable organomegaly. MUSCULOSKELETAL: No joint swelling or deformity. EXTREMITIES: No cyanosis, clubbing, or pedal edema. NEUROLOGICAL: Gross neurological examination did not reveal any focal deficits. SKIN: No rashes. - Labs CBC & Chem 7: 09/16/22 22:20 09/16/22 22:20 Assessment and Plan Assessment: 1. Intractable back pain with radiculopathy 2. Severe degenerative disc disease 4. Fibromyalgia 4. Atonic urinary bladder 5. Necessary to reflux disease 6. Arthritis L2-3 severe adjacent level degenerative disc disease L2-3 severe spinal stenosis Bilateral lower extremity weakness greater on the left than the right Bilateral lower extremity radiculopathy greater on the left than the right History of L3-S1 lumbosacral fusion with retained hardware Difficulty with ambulation Permanent bladder catheter Hypothyroidism Fibromyalgia GERD Plan: 1. Patient has been experiencing significant lower extremity radiculopathy with weakness. She has had difficulty with mobility and ambulation. She has a history of multiple surgeries at her lumbar spine with history of previous lumbar fusion L3-S1 performed in 2013. She has significant adjacent level degenerative change was severe stenosis at L2-3. She states at this time she wants to avoid surgical intervention and exhaust all conservative treatment options. She was seen and examined by pain management yesterday. She would like to be further evaluated by pain management again today to discuss the possibility of injections prior to discharge home. She states at bedside she would like to follow-up in the outpatient setting for further evaluation in regards to her lumbar spine, but currently is not planning to undergo further surgical intervention at her lumbar spine. She has had some benefit with IV steroid medication during her admission to the hospital. She has recently taken oral steroid medication in the outpatient set ting without benefit. She states his medication upset her stomach. She does not wish to have any steroid medications prescribed for the outpatient setting at the time of discharge. From an orthopedic spine standpoint, patient is clear for discharge. Patient may follow-up with Benny Gómez PA-C or Dr. Clifton Quinonez at [facility] in 2-3 weeks following discharge. She may work with physical therapy to increase ambulation and mobility. 2. Pain management will be further contacted for further reevaluation and to discuss the possibility of injections prior to discharge home 3. Patient will continue to be seen and examined by medicine for her multiple other medical diagnoses
== END 2022-09-23 11:28 | disposition home or self-care (01) | DRG 552 ==
LOC: EC 21:47 → 5NMEDONC 23:46 → 6NMEDSUR 09-17 08:26 → OBSVTOIN 09-21 09:23
PROVIDERS: ADMIT Family Medicine; ATTEND Family Medicine
PROC: 3E0R33Z Introduction of Anti-inflammatory into Spinal Canal, Percutaneous Approach (ICD-10-PCS; principal; 2022-09-22 07:30)
PROC: 3E0R3BZ Introduction of Anesthetic Agent into Spinal Canal, Percutaneous Approach (ICD-10-PCS; principal; 2022-09-22 07:30)
PROC: B01B1ZZ Fluoroscopy of Spinal Cord using Low Osmolar Contrast (ICD-10-PCS; principal; 2022-09-22 07:30)
DX: M51.16 Intervertebral disc disorders with radiculopathy, lumbar region (principal); M48.061 Spinal stenosis, lumbar region without neurogenic claudication; R00.1 Bradycardia, unspecified; M19.90 Unspecified osteoarthritis, unspecified site; Z98.1 Arthrodesis status; M48.02 Spinal stenosis, cervical region; G62.9 Polyneuropathy, unspecified; K57.90 Diverticulosis of intestine, part unspecified, without perforation or abscess without bleeding; G89.4 Chronic pain syndrome; G43.909 Migraine, unspecified, not intractable, without status migrainosus; K22.89 Other specified disease of esophagus; M50.30 Other cervical disc degeneration, unspecified cervical region; M79.7 Fibromyalgia; N31.2 Flaccid neuropathic bladder, not elsewhere classified; K22.4 Dyskinesia of esophagus; K21.9 Gastro-esophageal reflux disease without esophagitis; E03.9 Hypothyroidism, unspecified; Z79.890 Hormone replacement therapy; Z91.048 Other nonmedicinal substance allergy status; Z91.040 Latex allergy status; V89.2XXA Person injured in unspecified motor-vehicle accident, traffic, initial encounter; Y92.410 Unspecified street and highway as the place of occurrence of the external cause; Z79.899 Other long term (current) drug therapy; Z90.710 Acquired absence of both cervix and uterus; Z93.3 Colostomy status; Z87.01 Personal history of pneumonia (recurrent); Z98.42 Cataract extraction status, left eye; Z98.41 Cataract extraction status, right eye; Z90.49 Acquired absence of other specified parts of digestive tract; Z96.642 Presence of left artificial hip joint; Z96.652 Presence of left artificial knee joint; Z88.1 Allergy status to other antibiotic agents; Z88.5 Allergy status to narcotic agent; Z87.19 Personal history of other diseases of the digestive system
CPT/HCPCS: 36415; 62323; 72131; 80048; 81001; 85025; 85610; 85730; 96374; 96376; 99285

== ENCOUNTER → 2022-09-26 | Outpatient (CLI) | payer MEDICARE, OTHER ==
--- NOTE | 2022-09-27 17:21 | MR ---
EXAMINATION TYPE: MR lumbar spine wo/w con DATE OF EXAM: 09/26/2022 COMPARISON: CT lumbar spine 09/16/2022 HISTORY: Low back pain that radiates down both legs, numbness in both legs. History of surgery CONTRAST: 7.5 mL intravenous Gadavist. TECHNIQUE: Multiplanar, multisequence images of the lumbar spine were acquired. FINDINGS: Pedicle screws are present L3-S1. This causes limitation at these levels. Cord terminates at the L1-2 level. L1-2: Right paracentral disc herniation is present. No cord contact is evident. Moderate anterior the sam sac compression is present. No spinal canal stenosis or neural foraminal stenosis. L2-3: Broad-based disc bulge is moderate anterior thecal sac flattening. Facet hypertrophy and ligame ntum flavum laxity is likely present traversing to some spinal canal narrowing. Limitation due to ajith ceptibility artifact may limit estimated degree of stenosis. L3-4: No focal disc herniation or significant disc bulge is evident. No spinal canal stenosis or neur al foraminal stenosis. There is some limitation due to susceptibility artifact. L4-5: Laminectomy has been performed. No spinal canal stenosis is present. No significant disc bulge is evident. L5-S1: No focal disc herniation or significant disc bulge. No spinal canal stenosis. Following contrast, abnormal enhancement is not identified. IMPRESSION: 1. Limitation due to susceptibility artifact from pedicle screws L3-S1. 2. Suspected spinal canal stenosis due to disc bulging and facet hypertrophy and ligamentum flavum la xity at the L2-3 level.
== END | disposition home or self-care (01) ==
LOC: RADMRIMAIN 09:08
PROVIDERS: ATTEND Physician Assistant
DX: M51.16 Intervertebral disc disorders with radiculopathy, lumbar region (principal); M47.26 Other spondylosis with radiculopathy, lumbar region; M43.16 Spondylolisthesis, lumbar region; R53.1 Weakness; E66.9 Obesity, unspecified; M48.062 Spinal stenosis, lumbar region with neurogenic claudication; Z98.1 Arthrodesis status
CPT/HCPCS: 72158; A9585

== ENCOUNTER → 2022-10-15 | Outpatient (CLI) | payer MEDICARE, OTHER ==
[2022-10-15 11:07] VITALS: BP 130/80; PULSE 95; RESP 18; TEMP 99.2
--- NOTE | 2022-10-15 14:47 | P.PAINPG ---
PQRS Measure Charge Sheet Comment: A 67 yr old female with a history of severe and chronic LBP secondary to lumbar DDD and spondylosis with facet arthropathy without myelopathy presents today for evaluation s/p JOSE L2-L3. Pt states she experienced 90 % pain relief x 4 wks s/p procedure. Pain level is provoked at 9 /10 in intensity, constant, localized in the lumbar spine, sharp in character w shooting towards the BL buttocks and BLEs. Pain is provoked by sitting, laying supine. Pain is alleviated with heat, ice, medications (Ibu, Percocet), topical, use of a walker for ambulatory assistance, repositioning and rest. Interventional pain procedures completed include JOSE L2-L3 Patient is currently on Percocet, Ibu Patient denies any side effects of the medication(s), denies excessive drowsiness or sleepiness, denies suicidal ideation and reports that the current pain medication is helping to control the pain and improve activities of daily living. Patient denies any motor or sensory deficits. Patient denies any fever or night sweats, denies any change in the bowel movements or urination. Physical Examination: -Constitutional: Cooperative. Not in acute distress . - Neurologic: Cranial nerve II to XII intact. No focal neurological deficits. - Psychatric: Alert & oriented x 3. Matching mood & appropriate affect. Judgment and insight intact. - Musculoskeletal: Cervical spine: Muscle bulk/ tone/ strength in the bilateral upper extremities normal Vertebral body tenderness to palpation over Spurling test positive Distraction test positive Facet loading test positive TTP Thoracic spine Muscle bulk / tone/ strength in the bilateral paraspinal muscles normal Vertebral body tender to palpation over Facet loading test positive TTP Lumbar spine: Motor bulk/ tone/ strength lower extremities , thigh and legs : 5/5 Deep tendon reflexes : Normal Knee Jerk. Normal Ankle Jerk . Vertebral body tenderness to palpation over L3 Lumbar Facet Loading Test positive Straight Leg Raise: positive at 30 degrees right side/ left side Gaenslen's Test positive Sacral spine : Severe tenderness over the Sacroiliac joint: right side / left side Range of motion: Flexion of the lumbar spine <60 degrees Range of motion: Extension of the lumbar spine <20 degrees Gaenslen's Test positive right side / left side Anais test: positive right side / left side Thigh Thrust Test positive right side / left side Sacral Thrust Test positive right side / left side Assessment and plan: Chronic LBP secondary to lumbar DDD, spondylosis with facet arthropathy without myelopathy Recommendation of JOSE L2-L3 #2. May need a series of injections for optimal pain relief. Risks, benefits of procedure discussed and pt verbalized understanding. Admits to anticoagulant use or medical history of diabetes. Protocol for discontinuation/ continuation of medications osvaldo procedure discussed. All questions answered. I have spent less than 30 minutes on patient care today. Dr Moore was available by phone for the evaluation of this patient. The time was used to review the medical records including relevant urine studies and Prescription history (MAPs), review of the available imaging, evaluation and examination of the patient, coordination of care with the medical staff and if applicable referring physicians, as well as creation of the medical record PQRS Narrative: Smoking Status Never smoker Hx Alcohol Use (MH) No Home Medications: Ambulatory Orders Gabapentin 800 mg PO TID 09/04/15 Ibuprofen [Motrin] 800 mg PO Q8H PRN 06/30/16 Levothyroxine Sodium [Synthroid] 100 mcg PO DAILY 06/30/16 buPROPion HCL [Wellbutrin XL] 300 mg PO DAILY 02/04/17 Docusate [Colace] 100 mg PO TID 06/16/18 Multivitamins, Thera [Multivitamin (formulary)] 1 tab PO DAILY 01/23/19 Vitamin B Complex 1 cap PO DAILY 01/23/19 Bimatoprost [Lumigan 0.01% Ophth Soln] 1 drop BOTH EYES HS 09/09/19 Meclizine [Antivert] 25 mg PO BID 01/01/20 polyethylene glycoL 3350 [Miralax] 17 gm PO BID 02/11/21 Pantoprazole [Protonix] 40 mg PO DAILY 02/28/21 Solifenacin Succinate [Vesicare] 10 mg PO DAILY 03/19/22 Wheat Dextrin [Benefiber] 1 gm PO BID 03/19/22 Cholecalciferol [Vitamin D3 (125 Mcg = 5000 Iu)] 125 mcg PO DAILY 03/25/22 oxyCODONE-APAP 10-325MG [Percocet 10-325 mg] 1 tab PO Q6HR PRN 03/25/22 Albuterol Inhaler [Ventolin Hfa Inhaler] 2 puff INHALATION RT-QID PRN 09/17/22 Fluticasone Nasal [place] [Flonase Nasal [place]] 1 - 2 spr EA NOSTRIL DAILY 09/17/22 Lactulose 30 gm PO DAILY PRN 09/17/22 methocarbamoL [Robaxin-750] 750 mg PO TID PRN 09/17/22 Controlled Substance Measures - Controlled Substance Measures Is patient prescribed a controlled substance at discharge?: No
== END ==
LOC: PNWHC3 10:12
PROVIDERS: ATTEND Specialist
DX: M51.36 Other intervertebral disc degeneration, lumbar region (principal); M47.816 Spondylosis without myelopathy or radiculopathy, lumbar region; G89.29 Other chronic pain; Z91.048 Other nonmedicinal substance allergy status; Z88.1 Allergy status to other antibiotic agents; Z91.040 Latex allergy status
CPT/HCPCS: 99211

== ENCOUNTER 2022-11-10 09:21 | Day surgery (SDC) | payer MEDICARE, OTHER ==
[2022-11-06 14:43] VITALS: BMI 33.8
[~2022-11-10 09:21] MED LIST changes: +LACTATED RINGERS 1,000 ML IV SCH; -ceFAZolin 1,000 MG in SODIUM CHLORIDE 0.9% IRRIGATIO 1,000 ML IRRIGATION PRN
[2022-11-10 10:21] VITALS: TEMP 97.3
[2022-11-10] MEDS ORDERED: LIDOCAINE 1% (10MG/ML) FOR IV START INTRADERMA ONE (10:21)
[2022-11-10] MEDS ORDERED: TRIAMCINOLONE ACETONIDE 40 MG/ML 1 ML VIAL ONE (10:56)
[2022-11-10] MEDS ORDERED: IOPAMIDOL M200 10 ML VIAL ONE (10:56)
[2022-11-10] MEDS ORDERED: fentaNYL (PF) 50 MCG/ML 2 ML AMP ONE (10:56)
[2022-11-10] MEDS ORDERED: MIDAZOLAM 2 MG/2 ML VIAL ONE (10:56)
[2022-11-10] MEDS ORDERED: ROPIVACAINE 5 MG/ML 20 ML AMPULE ONE (10:56)
--- NOTE | 2022-11-10 11:14 | P.PCN ---
Date of Procedure: 11/10/22 Surgeon: Caly Benedict Pathology: none sent Condition: stable Disposition: PACU Description of Procedure: PREOPERATIVE DIAGNOSIS: 1-Lumbar radiculopathy 2- Lumber Degenerative Disc Diseases. POSTOPERATIVE DIAGNOSIS: 1-Lumbar radiculopathy. 2-Lumbar Degenerative Disc Diseases 3-lumbar postlaminectomy pain syndrome PROCEDURE 1. Lumbar epidural steroid injection under fluoroscopic guidance at the L2-3 level. 2. Lumbar epidurogram. ANESTHESIA: Local with 1% lidocaine; and IV moderate conscious sedation with Versed and fentanyl EBL: Minimal PROCEDURE INDICATION: The patient with low back pain and radiculitis symptoms unresponsive to conservative treatment. Fluoroscopy was used to optimize visualization of the needle placement and to maximize safety. PROCEDURE DESCRIPTION / TECHNIQUE: The patient was seen and identified in the preoperative area. Risks, benefits, complications including but not limited to infections ,bleeding ,allergic reaction to the medications ,nerve damage and not complete pain relief , and alternatives were discussed with the patient. The patient agreed to proceed with the procedure and signed the consent. IV was started, and vital signs were stable. Patient was taken to the OR and time out was completed. The patient was placed in the prone position on procedure table and a pillow was placed under the abdomen to reduce lumbar lordosis. The lumbosacral area was prepped and draped in the usual sterile fashion with ChloraPrep.Patient was closely monitored during the procedure. Conscious sedation was used during the procedure to decrease patients anxiety. Vital signs were monitered during the entire procedure. Using anterior-posterior fluoroscopy, the L2-3 interlaminar space was identified and the skin over this site was marked and then infiltrated with 1% lidocaine subcutaneously. Subsequently, a 20-gauge Tuohy epidural needle was inserted and advanced toward the epidural space using the Loss of resistance to air technique and guided by AP and lateral fluoroscopy. The correct needle position in the epidural space was verified with the injection of 1 mL of the water soluble contrast dye Omnipaque 180 contrast and observing an excellent epidurogram with the epidural spread of the dye, after negative aspiration for blood and CSF and in the absence of paresthesias. Again after negative aspiration, a 6 ml mixture containing 40 mg of Kenalog and 3 ml of preservative free Normal Saline, and 2 ml of preservative free Ropivacaine 0.5% solution was injected and a washout of epidurogram was seen. Needle was withdrawn intact, s kin was cleansed, and bandages were applied. patient tolerated procedure well and was transferred to PACU in stable condition.A copy of the needle placement picture was saved to the fluoroscopy machine. COMPLICATIONS: None The Patient May Benefit from a Caudal Epidural Steroid Injection with Lysis of Adhesions Next Time Sedation time:[id number] DISPOSITION / PLANS: The patient was placed in a supine position and transferred to the recovery area in a stable condition for observation. There was no evidence of lower extremity motor or sensory deficit after the procedure. Patient was discharged from the recovery room after meeting discharge criteria. Home discharge instructions were given to the patient by the staff. The patient was reexamined prior to discharge. The patient will schedule a follow up in the clinic in 2-4 weeks.
[2022-11-10] MEDS ORDERED: IV FLUID CONTINUATION 1,000 ML IV ONE ×2 (11:18)
--- NOTE | 2022-11-10 11:31 | FL ---
Intraoperative/procedural fluoroscopic services were provided for lumbar epidural injection. Total fl uoroscopy time is 16 seconds with a total of 2 submitted images to PACS. Total DAP [id number] ease see the operative note for further details.
[2022-11-10 11:48] VITALS: BP 135/62; PULSE 78; RESP 20
== END 2022-11-10 11:50 | disposition home or self-care (01) ==
LOC: ORPAIN 09:21
PROVIDERS: ATTEND Anesthesiology
DX: M51.16 Intervertebral disc disorders with radiculopathy, lumbar region (principal); M96.1 Postlaminectomy syndrome, not elsewhere classified; M19.90 Unspecified osteoarthritis, unspecified site; E66.9 Obesity, unspecified; Z91.040 Latex allergy status; Z68.32 Body mass index [BMI] 32.0-32.9, adult
CPT/HCPCS: 62323; 99152; J2250; J3301; J3010; Q9966; J2795

== ENCOUNTER → 2022-12-03 | Outpatient (CLI) | payer MEDICARE, OTHER ==
[2022-12-03 10:40] VITALS: BP 155/83; PULSE 97; RESP 18; TEMP 98.8
--- NOTE | 2022-12-03 14:25 | P.PAINPG ---
PQRS Measure Charge Sheet Comment: A 67 yr old female with a history of severe and chronic LBP secondary to lumbar DDD and spondylosis with facet arthropathy without myelopathy presents today for evaluation s/P JOSE L2-3. Pt states she experienced 75 % pain relief x 3 wks s/p procedure. Pain level is provoked at 7/10 in intensity, constant, localized in the lumbar spine, burning in character w shooting towards the BLEs. Pain is provoked by standing/ sitting for periods of 20 min or more. Pain is alleviated with heat, ice, medications, topicals, use of a walker for ambulatory assistance, laying on her side, repositioning and rest. Interventional pain procedures completed include JOSE L2-3 x2 Patient is currently on Percocet, Robaxin Patient denies any side effects of the medication(s), denies excessive drowsiness or sleepiness, denies suicidal ideation and reports that the current pain medication is helping to control the pain and improve activities of daily living. Patient denies any motor or sensory deficits. Patient denies any fever or night sweats, denies any change in the bowel movements or urination. Physical Examination: -Constitutional: Cooperative. Not in acute distress . - Neurologic: Cranial nerve II to XII intact. No focal neurological deficits. - Psychatric: Alert & oriented x 3. Matching mood & appropriate affect. Judgment and insight intact. - Musculoskeletal: Cervical spine: Muscle bulk/ tone/ strength in the bilateral upper extremities normal Vertebral body tenderness to palpation over Spurling test positive Distraction test positive Facet loading test positive TTP Thoracic spine Muscle bulk / tone/ strength in the bilateral paraspinal muscles normal Vertebral body tender to palpation over Facet loading test positive TTP Lumbar spine: Motor bulk/ tone/ strength lower extremities , thigh and legs : 5/5 Deep tendon reflexes : Normal Knee Jerk. Normal Ankle Jerk . Vertebral body tenderness to palpation over L5 + Tamayo Test positive Lumbar Facet Loading Test positive Straight Leg Raise: positive at <45 degrees right side/ left side Gaenslen's Test positive Sacral spine : Severe tenderness over the Sacroiliac joint: right side / left side Range of motion: Flexion of the lumbar spine <60 degrees Range of motion: Extension of the lumbar spine <20 degrees Gaenslen's Test positive right side / left side Anais test: positive right side / left side Thigh Thrust Test positive right side / left side Sacral Thrust Test positive right side / left side Assessment and plan: Chronic LBP secondary to lumbar DDD, spondylosis with facet arthropathy without myelopathy Recommendation of Caudal JOSE w lysis. May need a series of injections for optimal pain relief. Risks, benefits of procedure discussed and pt verbalized understanding. Admits to anticoagulant use or medical history of diabetes. Protocol for discontinuation/ continuation of medications osvaldo procedure discussed. Minimal anesthesia provided, if clinically indicated, consisting of Versed and Fentanyl. All questions answered. I have spent less than 30 minutes on patient care today. Dr Moore was available by phone for the evaluation of this patient. The time was used to review the medical records including relevant urine studies and Prescription history (MAPs), review of the available imaging, evaluation and examination of the patient, coordination of care with the medical staff and if applicable referring physicians, as well as creation of the medical record PQRS Narrative: Smoking Status Never smoker Hx Alcohol Use (MH) No Home Medications: Ambulatory Orders Gabapentin 800 mg PO TID 09/04/15 Ibuprofen [Motrin] 800 mg PO Q8H PRN 06/30/16 Levothyroxine Sodium [Synthroid] 100 mcg PO DAILY 06/30/16 buPROPion HCL [Wellbutrin XL] 300 mg PO DAILY 02/04/17 Docusate [Colace] 100 mg PO TID 06/16/18 Multivitamins, Thera [Multivitamin (formulary)] 1 tab PO DAILY 01/23/19 Vitamin B Complex 1 cap PO DAILY 01/23/19 Bimatoprost [Lumigan 0.01% Ophth Soln] 1 drop BOTH EYES HS 09/09/19 Meclizine [Antivert] 25 mg PO BID 01/01/20 polyethylene glycoL 3350 [Miralax] 17 gm PO BID 02/11/21 Pantoprazole [Protonix] 40 mg PO DAILY 02/28/21 Solifenacin Succinate [Vesicare] 10 mg PO DAILY 03/19/22 Wheat Dextrin [Benefiber] 1 gm PO BID 03/19/22 Cholecalciferol [Vitamin D3 (125 Mcg = 5000 Iu)] 125 mcg PO DAILY 03/25/22 oxyCODONE-APAP 10-325MG [Percocet 10-325 mg] 1 tab PO Q6HR PRN 03/25/22 Albuterol Inhaler [Ventolin Hfa Inhaler] 2 puff INHALATION RT-QID PRN 09/17/22 Fluticasone Nasal [place] [Flonase Nasal [place]] 1 - 2 spr EA NOSTRIL DAILY 09/17/22 Lactulose 30 gm PO DAILY PRN 09/17/22 methocarbamoL [Robaxin-750] 750 mg PO TID PRN 09/17/22 Controlled Substance Measures - Controlled Substance Measures Is patient prescribed a controlled substance at discharge?: No
== END ==
LOC: PNWHC3 10:05
PROVIDERS: ATTEND Specialist
DX: M51.36 Other intervertebral disc degeneration, lumbar region (principal); G89.29 Other chronic pain; M47.816 Spondylosis without myelopathy or radiculopathy, lumbar region; Z88.5 Allergy status to narcotic agent; Z91.011 Allergy to milk products; Z88.8 Allergy status to other drugs, medicaments and biological substances; Z88.1 Allergy status to other antibiotic agents; Z91.040 Latex allergy status; Z91.048 Other nonmedicinal substance allergy status
CPT/HCPCS: 99211

== ENCOUNTER 2023-02-03 11:23 | Inpatient (IN) | payer MEDICARE, OTHER ==
[2023-02-03] MEDS ORDERED: KETOROLAC 15 MG/ML 1 ML VIAL IVP STA (13:03)
--- NOTE | 2023-02-03 13:39 | XR ---
EXAMINATION TYPE: XR pelvis AP view DATE OF EXAM: 02/03/2023 1:16 PM INDICATION: Patient age:Female; 67 years old; Reason for study: l hip pain; PHH. COMPARISON: Pelvic radiograph 03/24/2019 TECHNIQUE: The pelvis was examined in a single projection. FINDINGS: There is no evidence of fracture or dislocation. Postsurgical from lumbar fusion and total left hip arthroplasty. Wire appears intact. There is no soft tissue abnormality. Few pelvic phlebolit hs. Multilevel degenerative changes of the lower spine. Left lower quadrant ostomy. IMPRESSION: 1. No acute osseous pathology. 2. Postsurgical changes from lumbar fusion and left total hip arthroplasty. Hardware appears intact.
[2023-02-03] MEDS ORDERED: HYDROmorphone 1 MG/ML 1 ML SYRINGE IVP STA (14:15)
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
[2023-02-03] MEDS ORDERED: NALOXONE 0.4 MG/ML 1 ML VIAL IV PRN (14:21)
[2023-02-03] MEDS ORDERED: ACETAMINOPHEN TAB 325 MG TAB PO PRN (14:21)
[2023-02-03] MEDS ORDERED: methylPREDNISolone SOD SUCCI 125 MG/2 ML VIAL IV STA (14:23)
[2023-02-03] MEDS: SODIUM CHLORIDE 0.9% 1,000 ML IV SCH (14:48)
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
--- NOTE | 2023-02-03 16:59 | XR ---
EXAMINATION TYPE: XR lumbar spine 2 or 3V DATE OF EXAM: 02/03/2023 4:48 PM INDICATION: Patient age:Female; 67 years old; Reason for study: Low back and left hip pain; PHH. COMPARISON: None TECHNIQUE: Frontal, lateral and coned in L5-S1 lateral views of the spine. FINDINGS: Post fixation changes to L3-S1. Hardware appears intact. Discectomy at L5-S1. No evidence o f any acute osseous pathology. No evidence of loss of vertebral body height is seen. There is postsu rgical alignment of the lumbar vertebral bodies. Mild scattered disc space narrowing. Multilevel viki inal osteophyte formation throughout the visualized spine. There is facet joint arthropathy throughou t the spine. Scattered at least mild neural foraminal stenosis. There is at least mild to moderate sp inal canal stenosis at L5-S1. Left hip arthroplasty changes partially visualized. IMPRESSION: Post surgical changes with hardware intact. No evidence of fracture.
[2023-02-03] MEDS: HYDROmorphone 0.5 MG/0.5 ML SYRINGE IVP PRN (18:51)
[2023-02-03] MEDS: CYCLOBENZAPRINE 10 MG TAB PO PRN (18:51)
[2023-02-04] MEDS: HYDROmorphone 0.5 MG/0.5 ML SYRINGE IVP PRN ×3 (00:40→20:08)
[2023-02-04] MEDS: KETOROLAC 15 MG/ML 1 ML VIAL IVP PRN ×2 (04:09→13:14)
[2023-02-04] MEDS: HYDROcodone/APAP 5-325MG 1 EACH TAB PO PRN ×2 (04:09→17:57)
[2023-02-04] MEDS: CYCLOBENZAPRINE 10 MG TAB PO PRN ×2 (04:09→17:58)
[2023-02-04] MEDS: HYDROmorphone 1 MG/ML 1 ML SYRINGE IVP PRN ×3 (06:24→23:43)
[2023-02-04] MEDS ORDERED: LACTULOSE 20 GM/30 ML CUP PO PRN (08:30)
[2023-02-04] MEDS ORDERED: ALBUTEROL NEBULIZED 2.5 MG/3 ML INHALATION PRN (08:30)
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
--- NOTE | 2023-02-04 09:26 | P.PN ---
Progress Note - Text Progress Note Date: 02/04/23 Patient is seen and examined today at bedside. She is having difficulty controlling her pain with her current medication and is planning to increase the frequency. She is not having neurologic deficit patient is continuing to have significant pain at the left side of her lower back toward her left gluteus and the lateral aspect of her left thigh with movement and motion. She denies any fevers or chills. Denies any change in bowel bladder function. Physical Exam Afebrile with stable vital signs Abdomen is soft nontender. Chest has good excursion deep and space expiration Her back to not have any open wounds lacerations or abrasions. Incisions intact and clean. There is no rashes. She has significant tenderness with even light palpation over her left gluteus. She does not have pain at her groin or hip with gentle internal/external rotation but has pain in her back with this. She does have motion intact at her knee and ankle foot and toes. Extremities have not had neurologic change from prior to surgery. Calves and thighs were soft nontender without evidence of DVT. Assessment/Plan Acute on chronic low back pain with inability to ambulate and mobilize Left lower extremity radiculopathy History of L3 to S1 decompression and fusion which appears stable Severe stenosis L2-3 Acute worsening after feeling a pop at her lower back at home while stretching The patient has worsening symptoms in her low back after an incident. She is having radiculopathy and has known prior decompression and fusion L3 to S1 which has appeared stable. She does have significant adjacent level degeneration at L2-3 and ulnar SI joints. Her lumbar imaging is reviewed. I think that she needs further imaging to further assess lumbar spine will order a new computed tomography scan. She could be a candidate for interventional pain management for epidural steroid injections again at L2-3 though she had these a few months ago without much relief. We could consider SI sacroiliac joint injections and we will consult interventional pain management. We will continue to increase the patient's mobilization with therapy. We will continue pain control with oral or IV medications. We'll continue to follow patient closely.
[2023-02-04] MEDS: ONDANSETRON 4 MG/2 ML VIAL IVP PRN (09:47)
[2023-02-04] MEDS: SODIUM CHLORIDE 0.9% 1,000 ML IV SCH ×3 (09:47→20:06)
--- NOTE | 2023-02-04 10:34 | P.PN ---
Progress Note - Text Progress Note Date: 02/04/23 Dr. Quinonez requested pain management consultation to do sacroiliac joint steroid injection, I discussed with the patient the option of doing the procedure but she refused, and patient declined any interventional pain management procedure
[2023-02-04] MEDS ORDERED: WHEAT DEXTRIN PO SCH (11:00)
[2023-02-04] MEDS ORDERED: CRANBERRY PO SCH (11:00)
[2023-02-04] MEDS ORDERED: VITAMIN C PO SCH (11:00)
[2023-02-04] MEDS: MULTIVITAMINS, THERA 1 EACH TAB PO SCH (11:09)
[2023-02-04] MEDS: SENNOSIDES 8.6 MG TAB PO SCH ×2 (11:09→18:03)
[2023-02-04] MEDS: FLUTICASONE 50MCG/SPRAY NASAL 16GM EA NOSTRIL SCH (11:09)
[2023-02-04] MEDS: polyethylene glycoL 3350 17 GM POWD.PACK PO SCH ×2 (11:09→18:03)
[2023-02-04] MEDS: CHOLECALCIFEROL 25 MCG (1000 IU) TABLET PO SCH (11:09)
[2023-02-04] MEDS: DOCUSATE 100 MG CAP PO SCH ×2 (11:09→17:58)
[2023-02-04] MEDS: GABAPENTIN 400 MG CAP PO SCH ×2 (11:09→17:57)
[2023-02-04] MEDS: FOLIC ACID-VIT B COMPLEX-VIT C 1 CAP PO SCH (11:10)
--- NOTE | 2023-02-04 13:57 | CT ---
EXAMINATION TYPE: CT lumbar spine wo con CT DLP: 1548.9 mGycm, Automated exposure control for dose reduction was used. DATE OF EXAM: 02/04/2023 1:41 PM COMPARISON: 09/16/2022. CLINICAL INDICATION:Female, 67 years old with history of Acute on chronic low back pain, h/o fusion L 3-S1; PHH, INTRACTABLE LT HIP PAIN HX OF L3-S1 FUSION TECHNIQUE: Multiple axial images were obtained from the midportion of T11 through the sacroiliac jarod nts. Soft tissue and bone windows in coronal and sagittal planes were obtained and reviewed. 3-D ref ormats of the bones were created on a separate workstation and submitted for review. Contrast used: none. Oral contrast used: none. FINDINGS: Alignment: There are 5 lumbar type vertebral bodies with straightening of the alignment. Bone: No evidence for acute fracture. Fixation changes to L3-S1. Hardware appears intact. There is go od osseous fusion along the surgical bed Discs: The neural foramen appear patent extending from L3-L4, L4-L5 and L5-S1. There is moderate to s evere spinal canal stenosis on the bilaterally at L2-L3. Other: Peripherally calcified lesion in the spleen likely representing pseudocyst versus thrombosed a neurysm versus calcified granuloma. IMPRESSION: 1. Post surgical changes extending from L3 through S1. Hardware appears intact. There is good osseou s fusion of the posterior elements. No evidence of fracture. No evidence for significant spinal canal stenosis. 2. Moderate to severe neural foraminal stenosis at L2-L3.
[2023-02-04] MEDS: LATANOPROST 0.005% OPHTH DROPS 2.5 ML BTL BOTH EYES SCH (18:03)
[2023-02-04] MEDS: MECLIZINE 25 MG TAB PO SCH (18:03)
[2023-02-04] MEDS: diphenhydrAMINE 25 MG CAP PO SCH (19:56)
[2023-02-04] MEDS: methylPREDNISolone SOD SUCCI 125 MG/2 ML VIAL IV SCH (19:56)
[2023-02-05] MEDS ORDERED: TROSPIUM CHLORIDE 20 MG TABLET PO SCH (02:00)
[2023-02-05] MEDS: SOLIFENACIN 10 MG PO SCH (02:13)
[2023-02-05] MEDS: SENNOSIDES 8.6 MG TAB PO SCH ×3 (02:13→18:17)
[2023-02-05] MEDS: DOCUSATE 100 MG CAP PO SCH ×3 (02:13→18:17)
[2023-02-05] MEDS: buPROPion XL 300 MG TAB.ER.24H PO SCH (02:13)
[2023-02-05] MEDS: LEVOTHYROXINE 100 MCG TAB PO SCH (02:13)
[2023-02-05] MEDS: PANTOPRAZOLE 40 MG TABLET PO SCH (02:13)
[2023-02-05] MEDS: MECLIZINE 25 MG TAB PO SCH ×2 (02:13→18:17)
[2023-02-05] MEDS: GABAPENTIN 400 MG CAP PO SCH ×3 (02:13→18:17)
[2023-02-05] MEDS: HYDROmorphone 0.5 MG/0.5 ML SYRINGE IVP PRN ×2 (02:49→13:16)
[2023-02-05] MEDS: SODIUM CHLORIDE 0.9% 1,000 ML IV SCH ×2 (05:48→13:18)
[2023-02-05] MEDS: HYDROmorphone 1 MG/ML 1 ML SYRINGE IVP PRN ×2 (07:57→16:24)
[2023-02-05] MEDS: methylPREDNISolone SOD SUCCI 125 MG/2 ML VIAL IV SCH ×2 (08:06→20:04)
[2023-02-05] MEDS: FLUTICASONE 50MCG/SPRAY NASAL 16GM EA NOSTRIL SCH (08:08)
--- NOTE | 2023-02-05 09:21 | P.PN ---
Progress Note - Text Progress Note Date: 02/05/23 Orthopedic spine: History of present illness: Patient is a very pleasant 67-year-old female well known to our services seen and examined the bedside for follow up evaluation of her lumbar spine. Since yesterday, she has not had any improvement of her symptoms. She continues to have some back pain but her left lower extremity radiculopathy is most significant. She has not been getting out of bed. She has difficulty lying flat in bed as it exacerbates her left lower extremity radiculopathy. She is currently eating breakfast this morning. She denies any right lower extremity radiculopathy. She does state she has difficulty ambulating on her left lower extremity due to pain. She has been seen in our office in outpatient setting on multiple occasions. She was scheduled for further evaluation in February. She states her pain had been well-controlled until a few days ago when she states she felt a pop and has had significant pain since that time. She has had significant intermittent difficulty with her left lower extremity. She is known has significant changes with stenosis at L2-3 above her previous fusion with retained hardware at L3-S1. Her L3-S1 fusion was performed in 2013. She has pain that radiates into the left buttock and down the left lateral thigh. Patient continues to be seen in exam by medicine for her other medical diagnoses including hypothyroidism, fibromyalgia, GERD, and the time urinary bladder. Patient does have a permanent bladder catheter. She follows with urology in [place], [place]. She was seen by her primary care provider this morning. She states her primary feels she is failing conservative treatment options. She was seen and examined by pain management yesterday but decided not to proceed forward with further injections as she has had them in the past without significant benefit. She also states Medicare no longer cover injections with sedation. She has had multiple injections with pain management and outpatient setting without significant long-term benefit. She is currently taking hydrocodone 5 mg/325 mg, cyclobenzaprine, and Solu- Medrol for pain control. She does not feel her pain has been adequately controlled Physical exam: Patient is awake, alert, and oriented 3 Vital signs stable Good chest excursion with deep inspiration and expiration Patient currently lying in bed towards her right side Evidence of a well-healed midline incision over the lumbar spine Dorsiflexion, plantarflexion, and extensor hallucis longus positive sustained bilaterally Patient has difficulty with active range of motion of her left lower extremity due to her pain. Increased posterior thigh pain with active range of motion of the lower extremities No signs or symptoms of DVT; no calf pain No pain with internal and external rotation of the hips bilaterally Bladder catheter intact with catheter bag attached Pertinent studies: CT of the lumbar spine taken on 02/04/2023: L2-3 significant adjacent level degenerative change with severe central spinal stenosis and foraminal stenosis; evidence of L3-S1 fusion with retained hardware which remains in good alignment and good position and appears to be adequately decompressed with evidence of good bony fusion CT of the lumbar spine taken on 09/16/2022: L2-3 significant adjacent level degenerative change and spinal stenosis; evidence of L3-S1 fusion with retained hardware which remains in good alignment and good position and appears to be adequately decompressed Assessment: L2-3 severe adjacent level degenerative disc disease L2-3 severe spinal stenosis Debilitating left lower extremity radiculopathy Difficulty with ambulation due to left lower extremity pain History of L3-S1 lumbosacral fusion with retained hardware Difficulty with ambulation Permanent bladder catheter Hypothyroidism Fibromyalgia GERD Plan: 1. Patient has been experiencing significant left lower extremity radiculopathy. She has had some difficulty with her left lower extremity symptoms intermittently over the past year. When present, her symptoms have been significant. She is having difficulty with mobility and ambulation. She has a history of multiple surgeries at her lumbar spine with history of previous lumbar fusion L3-S1 performed in 2013. She has significant adjacent level degenerative change with severe stenosis at L2-3. She does not feel she has had improvement of her symptoms during the admission to the hospital. She has had injection with pain management outpatient setting without significant benefit. Today she states she would like to discuss the possibility of further surgical intervention at her lumbar spine. We previously discussed in the outpatient setting she would be a candidate for further surgical intervention with L2-3 posterior lateral decompression fusion with removal of or extension to intact lumbar fusion hardware at L3-S1. Currently, we will try to continue control her pain with medications. She will continue with Solu-Medrol and cyclobenzaprine. We will plan to increase her oral medications to hydrocodone 7.5 mg/325 mg, 1 tablet every 4 hours as needed for pain and will discontinue hydrocodone 5 mg/25 mg, 1 tablet every 4 hours as needed for pain. We did discuss I will discuss the patient in significant detail with Dr. Clifton Quinonez and we'll discuss a long-term care proceeding forward. 2. Patient will continue to be seen and examined by medicine for her multiple other medical diagnoses
[2023-02-05] MEDS: KETOROLAC 15 MG/ML 1 ML VIAL IVP PRN ×2 (09:45→16:25)
[2023-02-05] MEDS: CYCLOBENZAPRINE 10 MG TAB PO PRN (09:49)
[2023-02-05] MEDS: MULTIVITAMINS, THERA 1 EACH TAB PO SCH (10:38)
[2023-02-05] MEDS: CHOLECALCIFEROL 25 MCG (1000 IU) TABLET PO SCH (10:38)
[2023-02-05] MEDS: FOLIC ACID-VIT B COMPLEX-VIT C 1 CAP PO SCH (10:38)
[2023-02-05] MEDS: polyethylene glycoL 3350 17 GM POWD.PACK PO SCH ×2 (10:39→18:17)
[2023-02-05] MEDS: LATANOPROST 0.005% OPHTH DROPS 2.5 ML BTL BOTH EYES SCH (18:17)
[2023-02-05] MEDS ORDERED: EQUATE FIBER PO SCH (20:00)
[2023-02-05] MEDS: HYDROcodone/APAP 7.5-325MG 1 EACH TAB PO PRN (20:04)
[2023-02-05] MEDS: SENNOSIDES 25 MG PO SCH (20:05)
[2023-02-05] MEDS: diphenhydrAMINE 25 MG CAP PO SCH (20:05)
[2023-02-05] MEDS: METHOCARBAMOL 750 MG PO SCH (20:07)
[2023-02-05] MEDS: EQUATE FIBER PO SCH (20:08)
[2023-02-06] MEDS: HYDROmorphone 1 MG/ML 1 ML SYRINGE IVP PRN ×4 (00:05→18:11)
[2023-02-06] MEDS: KETOROLAC 15 MG/ML 1 ML VIAL IVP PRN ×2 (00:25→09:02)
[2023-02-06] MEDS: DOCUSATE 100 MG CAP PO SCH ×4 (02:39→23:41)
[2023-02-06] MEDS: PANTOPRAZOLE 40 MG TABLET PO SCH (02:39)
[2023-02-06] MEDS: MECLIZINE 25 MG TAB PO SCH ×2 (02:39→18:10)
[2023-02-06] MEDS: buPROPion XL 300 MG TAB.ER.24H PO SCH (02:39)
[2023-02-06] MEDS: SOLIFENACIN 10 MG PO SCH (02:39)
[2023-02-06] MEDS: LEVOTHYROXINE 100 MCG TAB PO SCH (02:39)
[2023-02-06] MEDS: HYDROcodone/APAP 7.5-325MG 1 EACH TAB PO PRN ×2 (02:39→09:03)
[2023-02-06] MEDS: GABAPENTIN 400 MG CAP PO SCH ×3 (02:39→18:10)
[2023-02-06] MEDS: SODIUM CHLORIDE 0.9% 1,000 ML IV SCH ×3 (02:40→20:47)
[2023-02-06] MEDS: EQUATE FIBER PO SCH ×2 (06:10→11:18)
[2023-02-06] MEDS: methylPREDNISolone SOD SUCCI 125 MG/2 ML VIAL IV SCH ×2 (07:51→20:48)
[2023-02-06] MEDS: FLUTICASONE 50MCG/SPRAY NASAL 16GM EA NOSTRIL SCH (07:52)
[2023-02-06] MEDS: METHOCARBAMOL 750 MG PO SCH ×3 (07:57→20:50)
[2023-02-06] MEDS: SENNOSIDES 25 MG PO SCH ×3 (07:58→20:47)
[2023-02-06] MEDS: FOLIC ACID-VIT B COMPLEX-VIT C 1 CAP PO SCH (11:11)
[2023-02-06] MEDS: MULTIVITAMINS, THERA 1 EACH TAB PO SCH (11:11)
[2023-02-06] MEDS: CHOLECALCIFEROL 25 MCG (1000 IU) TABLET PO SCH (11:11)
[2023-02-06] MEDS: polyethylene glycoL 3350 17 GM POWD.PACK PO SCH ×2 (11:18→18:11)
--- NOTE | 2023-02-06 12:58 | P.PN ---
Subjective Progress Note Date: 02/06/23 This patient is a 67- year old female who is being followed in regards to her lumbar spine. She states she continues to experience significant left lower extremity pain, which has not improved from yesterday. She is also experiencing low back pain. Patient is not getting out of bed at this time. She is currently receiving IV solu-medrol, diluadid, toradol, and Talent 7.5/325mg. She states the Talent does not seem to help at the current dose. No new complaints this morning. Objective - Vital Signs Vital signs: Vital Signs Temp 98 F 02/06/23 08:00 Pulse 78 02/06/23 08:00 Resp 16 02/06/23 09:03 BP 159/76 02/06/23 08:00 Pulse Ox 95 02/06/23 08:00 FiO2 Intake & Output 02/05/23 02/06/23 02/06/23 18:59 06:59 18:59 Intake Total 604 120 Output Total 1700 1950 Balance -1096 -1830 Intake: Oral 604 120 Output: Urine 1700 1950 Other: Voiding Method Indwelling Catheter Indwelling Catheter Indwelling Catheter - Exam On examination, patient is lying on her right side in bed. She is alert and answers questions appropriately, she is tearful. On inspection of the left lower extremity, no erythema, ecchymosis, open wounds, skin discoloration. No swelling. Patient has dorsiflexion, plantarflexion sustained of the bilateral ankles and EHL. There is pain with any attempts at passive ROM of the left lower extremity. I am able to perform passive ROM with log rolling of the left hip with no increased pain. Motor and sensory function intact LLE. LLE warm and well perfused. The calf is soft and nontender. Assessment and Plan Assessment: Low back pain Left lower extremity radiculopathy L2-3 degenerative disc disease L2-3 severe spinal stenosis History of L3-S1 lumbosacral fusion Plan: - Patient was discussed with Dr. Quinonez. We will continue to attempt conservative treatment measures at this time. Her oral pain medication will be increased to Talent 10/325mg q4. She will continue IV solu-medrol, toradol. Diluadid as needed. - Appreciate internal medicine input for medical management. - We will continue to follow patient closely. The patient is seen and examined at bedside. She is not making any progress despite aggressive conservative treatment. She is not able to go through any injections without sedation and apparently the anesthesia service will not allow her to have injections with sedation. It is difficult to predict if injections would offer any further benefit as she has not had any significant benefit in the recent past. She is very curious about surgical intervention and we have discussed this with her at length. She has severe stenosis at L2-3 above her prior fusion. She has significant disc loss and stenosis with radiculopathy a correlates with her imaging findings. I think that she is a candidate for surgical intervention. We have discussed surgery at length as outpatient again here as an inpatient. She's not making any progress and she is interested in pursuing surgery as soon as possible. I think that we could consider surgery during this hospitalization if she is cleared medically. We can consider surgery potentially on Wednesday as we will arrange appropriate equipment and planning. She can eat today and tomorrow we will have her nothing by mouth after midnight for possible surgery on Wednesday.
--- NOTE | 2023-02-06 13:09 | P.PN ---
Subjective [id number]-[id number] female came in the because of severe low back pain and the left hip pain. Patient is being managed by back specialist and pain management services. Patient can use to have severe pain in the back. Constitutional: Denied any fatigue denied any fever. Cardio vascular: denied any chest pain, palpitations Gastrointestinal denied any nausea vomiting Pulmonary: Denied any shortness of breath cough Neurologic denied any new focal deficits All inpatient medications were reviewed and appropriate changes in these medications as dictated in the interval history and assessment and plan. PHYSICAL EXAMINATION: GENERAL: The patient is alert and oriented x3, not in any acute distress. Well developed, well nourished. HEENT: Pupils are round and equally reacting to light. EOMI. No scleral icterus. No conjunctival pallor. Normocephalic, atraumatic. No pharyngeal erythema. No thyromegaly. CARDIOVASCULAR: S1 and S2 present. No murmurs, rubs, or gallops. PULMONARY: Chest is clear to auscultation, no wheezing or crackles. ABDOMEN: Soft, nontender, nondistended, normoactive bowel sounds. No palpable organomegaly. MUSCULOSKELETAL: No joint swelling or deformity. EXTREMITIES: No cyanosis, clubbing, or pedal edema. NEUROLOGICAL: Gross neurological examination did not reveal any focal deficits. SKIN: No rashes. Assessment and plan -Lumbar radiculopathy hip pain: Continue with present medications. Patient did have good bowel movements today. Patient is on multiple opiates for pain. -Gastroesophageal reflux disease -Hypothyroidism continue with levothyroxine -Depression continue with the Wellbutrin -Neuropathy, radiculopathy: Continue gabapentin DVT prophylaxis: Lovenox Objective - Vital Signs Vital signs: Vital Signs Temp 98 F 02/06/23 08:00 Pulse 78 02/06/23 08:00 Resp 16 02/06/23 09:03 BP 159/76 02/06/23 08:00 Pulse Ox 95 02/06/23 08:00 FiO2 Intake & Output 02/05/23 02/06/23 02/06/23 18:59 06:59 18:59 Intake Total 604 120 Output Total 1700 1950 Balance -1096 1830 Intake: Oral 604 120 Output: Urine 1700 1950 Other: Voiding Method Indwelling Catheter Indwelling Catheter Indwelling Catheter
[2023-02-06] MEDS: ENOXAPARIN 40 MG/0.4 ML SYRINGE SQ SCH (15:27)
[2023-02-06] MEDS: HYDROcodone/APAP 10-325MG 1 EACH TAB PO PRN ×2 (15:27→20:57)
[2023-02-06] MEDS: LATANOPROST 0.005% OPHTH DROPS 2.5 ML BTL BOTH EYES SCH (18:18)
[2023-02-06] MEDS: diphenhydrAMINE 25 MG CAP PO SCH (20:48)
[2023-02-07] MEDS: HYDROmorphone 1 MG/ML 1 ML SYRINGE IVP PRN ×4 (00:01→18:34)
[2023-02-07] MEDS: GABAPENTIN 400 MG CAP PO SCH ×3 (01:34→18:34)
[2023-02-07] MEDS: LEVOTHYROXINE 100 MCG TAB PO SCH (01:34)
[2023-02-07] MEDS: SOLIFENACIN 10 MG PO SCH (01:34)
[2023-02-07] MEDS: MECLIZINE 25 MG TAB PO SCH ×2 (01:35→18:35)
[2023-02-07] MEDS: PANTOPRAZOLE 40 MG TABLET PO SCH (01:35)
[2023-02-07] MEDS: buPROPion XL 300 MG TAB.ER.24H PO SCH (01:35)
[2023-02-07] MEDS: EQUATE FIBER PO SCH ×2 (01:37→12:32)
[2023-02-07] MEDS: HYDROcodone/APAP 10-325MG 1 EACH TAB PO PRN ×4 (03:11→21:47)
[2023-02-07] MEDS: SODIUM CHLORIDE 0.9% 1,000 ML IV SCH ×3 (03:12→23:06)
[2023-02-07] MEDS: methylPREDNISolone SOD SUCCI 125 MG/2 ML VIAL IV SCH ×2 (09:00→20:03)
[2023-02-07] MEDS: ENOXAPARIN 40 MG/0.4 ML SYRINGE SQ SCH (09:00)
[2023-02-07] MEDS: FLUTICASONE 50MCG/SPRAY NASAL 16GM EA NOSTRIL SCH (09:01)
[2023-02-07] MEDS: SENNOSIDES 25 MG PO SCH ×3 (09:02→20:01)
[2023-02-07] MEDS: METHOCARBAMOL 750 MG PO SCH ×3 (09:09→20:02)
--- NOTE | 2023-02-07 09:51 | P.PN ---
Progress Note - Text Progress Note Date: 02/07/23 Patient is seen and examined today at bedside. She continues to have severe pain at her left lower extremity with radicular pain. She is unable to ambulate. She has great difficulty trying to even move her sit up in bed. She is not making progress despite conservative management with attempts of therapy medication and IV steroids. She is known to have severe stenosis at L2-3 with radiculopathy. She had made some progress several months ago with conservative care however she has significantly worsened and is unable to mobilize made. She is interested in surgical intervention I think is reasonable to pursue. Physical Exam Afebrile with stable vital signs Abdomen is soft nontender. Chest has good excursion deep and space expiration The prior incision site is clean dry and intact. No erythema there is no purulence. Extremities have not had neurologic traveler changer the course of this hospitalization. She is able to move her leg but she has significant pain. She has sensitivity around her left thigh and gluteus. Calves and thighs were soft nontender without evidence of DVT. 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 She remains unable ambulate due to her left lower extremity radiculopathy and inability bear weight on left leg weakness when ambulating and standing . Wehave continued to increase the patient's mobilization with therapy, but we have not made any gains and she remains unable ambulate. We will continue pain control with oral or IV medications. The patient's symptoms correlate with her severe changes at L2-3. She had acute worsening and we had discussed the possibility of surgery with her in the past. At this point with her lack of benefit and severe status, I think that surgical intervention is reasonable and necessary. I think this can give her potential for improving her pain significant only and increase her mobility so that she will be able to start to get out of bed. Currently she has significant radiculopathy and when she stands her left leg is weak for her and she is unable to bear weight. She is in excruciating pain stemming from the L2-3 level and I think that surgical intervention offers her the best chance for improvement. We'll plan to proceed with surgery for decompression and fusion at L2-3 with extension of fusion from her prior L3 to S1 tomorrow. She is getting appropriate preoperative evaluation and clearance. She'll be nothing by mouth after midnight. I discussed the risk of occasions alternatives and benefits with her at length. I answered questions best my ability and leg which she could understand and she is interested in proceeding with surgery tomorrow.
--- NOTE | 2023-02-07 12:13 | P.PN ---
Subjective [id number] female came in the because of severe low back pain and the left hip pain. Patient is being managed by back specialist and pain management services. Patient can use to have severe pain in the back. 02/07/2023 Skin change compared to yesterday patient is still complaining of pain patient apparently will undergo back surgery tomorrow Constitutional: Denied any fatigue denied any fever. Cardio vascular: denied any chest pain, palpitations Gastrointestinal denied any nausea vomiting Pulmonary: Denied any shortness of breath cough Neurologic denied any new focal deficits All inpatient medications were reviewed and appropriate changes in these medications as dictated in the interval history and assessment and plan. PHYSICAL EXAMINATION: GENERAL: The patient is alert and oriented x3, not in any acute distress. Well developed, well nourished. HEENT: Pupils are round and equally reacting to light. EOMI. No scleral icterus. No conjunctival pallor. Normocephalic, atraumatic. No pharyngeal erythema. No thyromegaly. CARDIOVASCULAR: S1 and S2 present. No murmurs, rubs, or gallops. PULMONARY: Chest is clear to auscultation, no wheezing or crackles. ABDOMEN: Soft, nontender, nondistended, normoactive bowel sounds. No palpable organomegaly. MUSCULOSKELETAL: No joint swelling or deformity. EXTREMITIES: No cyanosis, clubbing, or pedal edema. NEUROLOGICAL: Gross neurological examination did not reveal any focal deficits. SKIN: No rashes. Assessment and plan -Lumbar radiculopathy hip pain: Continue with present medications. Patient did have good bowel movements today. Patient is on multiple opiates for pain. -Gastroesophageal reflux disease -Hypothyroidism continue with levothyroxine -Depression continue with the Wellbutrin -Neuropathy, radiculopathy: Continue gabapentin DVT prophylaxis: Lovenox Objective - Vital Signs Vital signs: Vital Signs Temp 98.6 F 02/07/23 08:00 Pulse 72 02/07/23 08:00 Resp 14 02/07/23 09:00 BP 126/69 02/07/23 08:00 Pulse Ox 92 L 02/07/23 08:00 FiO2 Intake & Output 02/06/23 02/07/23 02/07/23 18:59 06:59 18:59 Intake Total 122 237 Output Total 1800 2049 1720 Balance -1677 -2049 Intake: Oral 122 237 Output: Urine 1800 1800 1720 Urine/Stool Mix 250 Other: Voiding Method Indwelling Catheter Indwelling Catheter Indwelling Catheter # Bowel Movements 1
[2023-02-07] MEDS: CHOLECALCIFEROL 25 MCG (1000 IU) TABLET PO SCH (12:31)
[2023-02-07] MEDS: MULTIVITAMINS, THERA 1 EACH TAB PO SCH (12:32)
[2023-02-07] MEDS: FOLIC ACID-VIT B COMPLEX-VIT C 1 CAP PO SCH (12:32)
[2023-02-07] MEDS: DOCUSATE 100 MG CAP PO SCH ×2 (12:32→18:33)
[2023-02-07] MEDS: polyethylene glycoL 3350 17 GM POWD.PACK PO SCH ×2 (12:32→18:33)
[2023-02-07] MEDS: LATANOPROST 0.005% OPHTH DROPS 2.5 ML BTL BOTH EYES SCH (18:35)
--- NOTE | 2023-02-07 19:54 | P.PN ---
Subjective Progress Note Date: 02/05/23 Principal diagnosis: Immobility related to back pain. The patient's pain is minimally controlled compared to yesterday. No voiding difficulties. She is contemplating surgical repair due to his severe DJD of the lumbar spine. Previous repair is noted. Appreciate Orthopedic input. Objective - Vital Signs Vital signs: Vital Signs Temp 99.3 F 02/07/23 14:00 Pulse 87 02/07/23 14:00 Resp 20 02/07/23 14:00 BP 160/81 02/07/23 14:00 Pulse Ox 93 L 02/07/23 14:00 FiO2 Intake & Output 02/07/23 02/07/23 02/08/23 06:59 18:59 06:59 Intake Total 822 Output Total 2049 2620 Balance -2049 -1797 Intake: Oral 822 Output: Urine 1800 2620 Urine/Stool Mix 250 Other: Voiding Method Indwelling Catheter Indwelling Catheter - Constitutional General appearance: Present: cooperative, obese - EENT Eyes: Absent: abnormal pupil - Respiratory Respiratory: bilateral: diminished - Cardiovascular Rhythm: regular Heart sounds: normal: S1, S2 Abnormal Heart Sounds: Present: S3 Gallop - Gastrointestinal General gastrointestinal: Present: soft, tenderness - Integumentary Integumentary: Absent: cyanotic - Psychiatric Psychiatric: Present: A&O x's 3 Assessment and Plan (1) Hip pain Current Visit: Yes Status: Acute Code(s): M25.559 - PAIN IN UNSPECIFIED HIP SNOMED Code(s): 87182667 (2) Inability to ambulate due to left hip Current Visit: Yes Status: Acute Code(s): R26.2 - DIFFICULTY IN WALKING, NOT ELSEWHERE CLASSIFIED SNOMED Code(s): 123846005 (3) Arthritis Current Visit: No Status: Acute Code(s): M19.90 - UNSPECIFIED OSTEOARTHRITIS, UNSPECIFIED SITE SNOMED Code(s): 7397725 (4) Atonic urinary bladder Current Visit: No Status: Acute Code(s): N31.2 - FLACCID NEUROPATHIC BLADDER, NOT ELSEWHERE CLASSIFIED SNOMED Code(s): 857665517 (5) Back pain Current Visit: No Status: Acute Code(s): M54.9 - DORSALGIA, UNSPECIFIED SNOMED Code(s): 813435865 (6) Cervical stenosis of spinal canal Current Visit: No Status: Acute Code(s): M48.02 - SPINAL STENOSIS, CERVICAL REGION SNOMED Code(s): 68344344 (7) Depression Current Visit: No Status: Chronic Code(s): F32.9 - MAJOR DEPRESSIVE DISORDER, SINGLE EPISODE, UNSPECIFIED SNOMED Code(s): 32140805 Plan: Continue proper pain control. Appreciate orthopedic input. I did discuss at length with her that she might need surgical repair even though this is not ideal for her given her previous surgery in the lumbar spine area. Check CBC and CMP in the a.m. See orders otherwise. Time with Patient: Greater than 30
[2023-02-07] MEDS: diphenhydrAMINE 25 MG CAP PO SCH (20:03)
[2023-02-08] MEDS: EQUATE FIBER PO SCH ×2 (01:04→09:24)
[2023-02-08] MEDS: DOCUSATE 100 MG CAP PO SCH ×3 (01:08→21:13)
[2023-02-08] MEDS: buPROPion XL 300 MG TAB.ER.24H PO SCH (01:11)
[2023-02-08] MEDS: LEVOTHYROXINE 100 MCG TAB PO SCH (01:11)
[2023-02-08] MEDS: GABAPENTIN 400 MG CAP PO SCH ×3 (01:11→21:13)
[2023-02-08] MEDS: PANTOPRAZOLE 40 MG TABLET PO SCH (01:11)
[2023-02-08] MEDS: MECLIZINE 25 MG TAB PO SCH ×2 (01:11→21:13)
[2023-02-08] MEDS: HYDROmorphone 1 MG/ML 1 ML SYRINGE IVP PRN ×5 (01:12→23:53)
[2023-02-08] MEDS: SOLIFENACIN 10 MG PO SCH (01:12)
[2023-02-08] MEDS: HYDROcodone/APAP 10-325MG 1 EACH TAB PO PRN ×3 (04:35→13:46)
--- NOTE | 2023-02-08 08:50 | P.PN ---
Subjective Progress Note Date: 02/08/23 Principal diagnosis: left hip pain This is a 67-year-old female who is admitted after complaining of left hip pain. She has a significant medical history of lumbar spinal fusion L3 to S1. She had been stretching and felt a pop in her left hip so she presented to the emergency room with significant pain. She follows with Dr. Quinonez. She still is unable to ambulate and is having great difficulty trying to sit up in bed. The last few days she's been maintained on pain medication IV steroids with little improvement. Today Dr. Quinonez will proceed with decompression and fusion at L2- 3. Patient is seen this morning alert and oriented laying in bed. Still complaining of significant pain. Objective - Vital Signs Vital signs: Vital Signs Temp 98.0 F 02/08/23 07:47 Pulse 74 02/08/23 07:47 Resp 16 02/08/23 07:47 BP 128/78 02/08/23 07:47 Pulse Ox 94 L 02/08/23 07:47 FiO2 Intake & Output 02/07/23 02/08/23 02/08/23 18:59 06:59 18:59 Intake Total 822 Output Total 2620 2650 Balance -1798 -2650 Intake: Oral 822 Output: Urine 2620 2650 Other: Voiding Method Indwelling Catheter Indwelling Catheter - Constitutional General appearance: Present: cooperative, no acute distress - EENT Eyes: Present: PERRLA - Neck Neck: Present: normal ROM. Absent: lymphadenopathy, rigidity - Cardiovascular Rhythm: regular Heart sounds: normal: S1, S2 - Gastrointestinal General gastrointestinal: Present: soft. Absent: tenderness - Integumentary Integumentary: Present: normal, normal turgor - Musculoskeletal Musculoskeletal: Present: generalized weakness - Psychiatric Psychiatric: Present: A&O x's 3, appropriate affect, intact judgment & insight Assessment and Plan (1) Hip pain Current Visit: Yes Status: Acute Code(s): M25.559 - PAIN IN UNSPECIFIED HIP SNOMED Code(s): 46831699 (2) Back pain Current Visit: No Status: Acute Code(s): M54.9 - DORSALGIA, UNSPECIFIED SNOMED Code(s): 642378162 (3) Inability to ambulate due to left hip Current Visit: Yes Status: Acute Code(s): R26.2 - DIFFICULTY IN WALKING, NOT ELSEWHERE CLASSIFIED SNOMED Code(s): 768603649 (4) Fibromyalgia Current Visit: No Status: Acute Code(s): M79.7 - FIBROMYALGIA SNOMED Code(s): 357415958 (5) GERD (gastroesophageal reflux disease) Current Visit: No Status: Acute Code(s): K21.9 - GASTRO-ESOPHAGEAL REFLUX DISEASE WITHOUT ESOPHAGITIS SNOMED Code(s): 181157362 (6) History of degenerative disc disease Current Visit: No Status: Acute Code(s): Z87.39 - PERSONAL HISTORY OF DISEASES OF THE MS SYS AND CONN TISS SNOMED Code(s): 022208391 (7) Hypothyroidism Current Visit: No Status: Acute Code(s): E03.9 - HYPOTHYROIDISM, UNSPECIFIED SNOMED Code(s): 88808517 Plan: Surgery scheduled for today. Maintain adequate pain control. Check CBC and CMP in the morning. Patient seen and evaluated by nurse practitioner, physician in agreement with plan
--- NOTE | 2023-02-08 08:58 | P.PN ---
Progress Note - Text Progress Note Date: 02/08/23 Orthopedic spine: History of present illness: Patient is a very pleasant 67-year-old female well known to our services seen and examined the bedside for follow up evaluation of her lumbar spine. She has not had any improvement of her symptoms over the weekend and continues to feel her symptoms have been worsening. She has not been able to get out of bed.. She continues to have some back pain but her left lower extremity radiculopathy is most significant. She has not been getting out of bed. She has difficulty lying flat in bed as it exacerbates her left lower extremity radiculopathy. She denies any right lower extremity radiculopathy. She does state she has difficulty ambulating on her left lower extremity due to pain. She has been seen in our office in outpatient setting on multiple occasions. She was scheduled for further evaluation in February. She states her pain had been well-controlled until several days ago when she states she she felt a pop and has had significant pain since that time. She has had significant i ntermittent difficulty with her left lower extremity. She is known has significant changes with stenosis at L2-3 above her previous fusion with retained hardware at L3-S1. Her L3-S1 fusion was performed in 2013. She has pain that radiates into the left buttock and down the left lateral thigh. Patient continues to be seen in exam by medicine for her other medical diagnoses including hypothyroidism, fibromyalgia, GERD, and the time urinary bladder. Patient does have a permanent bladder catheter. She follows with urology in [place], [place]. He continues to be seen and examined by her primary care provider. She states her primary feels she is failing conservative treatment options. She is currently taking hydrocodone 5 mg/325 mg, cyclobenzaprine, and Solu- Medrol for pain control. She does not feel her pain has been adequately controlled and feels the IV medications helped but wear off too rapidly. Patient continues to feel she is failing conservative treatment options. She is ready to proceed forward with surgical intervention as scheduled today. She is currently scheduled for an L2-3 open posterior lateral decompression and fusion with extension to intact hardware at L3-S1 with possible removal of hardware. Patient is currently nothing by mouth status. Physical exam: Patient is awake, alert, and oriented 3 Vital signs stable Good chest excursion with deep inspiration and expiration Patient currently lying in bed towards her right side Evidence of a well-healed midline incision over the lumbar spine Dorsiflexion, plantarflexion, and extensor hallucis longus positive sustained bilaterally Patient has difficulty with active range of motion of her left lower extremity due to her pain. Increased posterior thigh pain with active range of motion of the lower extremities No signs or symptoms of DVT; no calf pain No pain with internal and external rotation of the hips bilaterally Bladder catheter intact with catheter bag attached Pertinent studies: CT of the lumbar spine taken on 02/04/2023: L2-3 significant adjacent level degenerative change with severe central spinal stenosis and foraminal stenosis; evidence of L3-S1 fusion with retained hardware which remains in good alignment and good position and appears to be adequately decompressed with evidence of good bony fusion CT of the lumbar spine taken on 09/16/2022: L2-3 significant adjacent level degenerative change and spinal stenosis; evidence of L3-S1 fusion with retained hardware which remains in good alignment and good position and appears to be adequately decompressed Assessment: L2-3 severe adjacent level degenerative disc disease L2-3 severe spinal stenosis Debilitating left lower extremity radiculopathy Difficulty with ambulation due to left lower extremity pain History of L3-S1 lumbosacral fusion with retained hardware Difficulty with ambulation Permanent bladder catheter Hypothyroidism Fibromyalgia GERD Plan: 1. Patient has been experiencing significant left lower extremity radiculopathy. She has had some difficulty with her left lower extremity symptoms intermittently over the past year. When present, her symptoms have been significant. She is having difficulty with mobility and ambulation. She has a history of multiple surgeries at her lumbar spine with history of previous lumbar fusion L3-S1 performed in 2013. She has significant adjacent level degenerative change with severe stenosis at L2-3. She does not feel she has had improvement of her symptoms during the admission to the hospital. She has had injection with pain management outpatient setting without significant benefit. She continues to feel she has failed conservative treatment. Her pain has not been well-controlled with medications. She has been unable to ambulate or get out of bed over the past several days during her admission to the hospital. She's tried working with therapy without success. At this time, she would like to proceed forward with surgical intervention. She is currently nothing by mouth status in anticipation for surgical intervention later today. She is scheduled to proceed forward and L2-3 open posterior lateral decompression and fusion with extension to intact hardware at L3-S1 with possible removal of hardware. We will plan to continue to try to control her pain with medications. She will continue with hydrocodone, cyclobenzaprine, and Dilaudid. Her oral medications will currently be on hold anticipation for surgical intervention today. She will remain nothing by mouth status in anticipation for surgical intervention today. We'll also plan for consultation with case management for discharge planning. Patient does live alone and does not feel she would be able to manage at home. We'll plan to discharge to a rehabilitation facility following surgical intervention once she has some improvement postoperatively and is medically stable. 2. Patient will continue to be seen and examined by medicine for her multiple other medical diagnoses. It was discussed patient will need surgical clearance by her primary care provider prior to surgical intervention today.
[2023-02-08] MEDS: CHOLECALCIFEROL 25 MCG (1000 IU) TABLET PO SCH (09:22)
[2023-02-08] MEDS: FLUTICASONE 50MCG/SPRAY NASAL 16GM EA NOSTRIL SCH (09:23)
[2023-02-08] MEDS: FOLIC ACID-VIT B COMPLEX-VIT C 1 CAP PO SCH (09:23)
[2023-02-08] MEDS: MULTIVITAMINS, THERA 1 EACH TAB PO SCH (09:23)
[2023-02-08] MEDS: methylPREDNISolone SOD SUCCI 125 MG/2 ML VIAL IV SCH ×2 (09:24→21:12)
[2023-02-08] MEDS: polyethylene glycoL 3350 17 GM POWD.PACK PO SCH ×2 (09:24→21:15)
[2023-02-08] MEDS: SENNOSIDES 25 MG PO SCH ×3 (09:24→22:07)
[2023-02-08] MEDS: METHOCARBAMOL 750 MG PO SCH ×3 (09:28→22:07)
[2023-02-08] MEDS: ENOXAPARIN 40 MG/0.4 ML SYRINGE SQ SCH (10:49)
[2023-02-08 11:15] LABS: HCT 40.8 % (37.2-46.3); HGB 13.2 d/dL (12.0-15.0); MCH 30.4 pg (27.0-32.0); MCHC 32.4 d/dL (32.0-37.0); Mean Platelet Volume 10.8 FL (9.5-12.2); NRBC Per 100 WBC 0 X 10*3/uL (0.00-0.01); Platelet Count 294 X 10*3/uL (140-440); RBC 4.34 X 10*6/uL (4.10-5.20); RDW 13.9 % (11.5-14.5); WBC 16.49 X 10*3/uL (4.50-10.00)
[2023-02-08 11:18] LABS: BUN/Creat Ratio 32.29 Ratio (12.00-20.00); Blood Urea Nitrogen 22.6 mg/dL (9.0-27.0); Calcium 9.4 mg/dL (8.7-10.3); Carbon Dioxide 22.6 mmol/L (21.6-31.8); Chloride 106 mmol/L (96-109); Glucose 108 mg/dL (70-110); Potassium 4.6 mmol/L (3.5-5.5); Sodium 139 mmol/L (135-145)
[2023-02-08] MEDS: SODIUM CHLORIDE 0.9% 1,000 ML IV SCH (11:31)
[2023-02-08] MEDS ORDERED: GELATIN SPONGE,ABSORB (LARGE) 1 EACH SPONGE TOPICAL ONE ×2 (13:38→15:51)
[2023-02-08] MEDS ORDERED: THROMBIN (BOVINE) 5,000 UNIT VIAL TOPICAL ONE ×2 (13:38→15:51)
[2023-02-08] MEDS ORDERED: LIDOCAINE 0.5% (PF) 5 MG/ML (50 ML SDV) SQ ONE ×2 (13:39→15:35)
[2023-02-08] MEDS ORDERED: BUPIVACAINE (PF) 0.25% 30 ML VIAL SQ ONE ×2 (13:39→15:35)
[2023-02-08] MEDS ORDERED: ONDANSETRON 4 MG/2 ML VIAL IVP ONE (14:59)
[2023-02-08] MEDS ORDERED: LACTATED RINGERS 1,000 ML IV ONE ×2 (14:59→17:04)
[2023-02-08] MEDS ORDERED: LIDOCAINE 2% INJ 20 MG/ML (2 ML VIAL) ONE (15:00)
[2023-02-08] MEDS ORDERED: fentaNYL (PF) 50 MCG/ML 2 ML AMP ONE (15:00)
[2023-02-08] MEDS ORDERED: PHENYLEPHRINE-0.9% NACL SYG 1,000 MCG/10 ML SYRINGE ONE (15:00)
[2023-02-08] MEDS ORDERED: NEOSTIGMINE 1 MG/ML 10 ML VIAL ONE (15:00)
[2023-02-08] MEDS ORDERED: ROCURONIUM 10 MG/ML (5 ML VIAL) IV ONE (15:00)
[2023-02-08] MEDS ORDERED: MIDAZOLAM 2 MG/2 ML VIAL ONE (15:00)
[2023-02-08] MEDS ORDERED: KETAMINE 10 MG/ML 20 ML VIAL ONE (15:00)
[2023-02-08] MEDS ORDERED: SUCCINYLCHOLINE CHLORIDE 200 MG/10 ML VIAL IV ONE (15:00)
[2023-02-08] MEDS ORDERED: GLYCOPYRROLATE 0.2 MG/ML 2 ML VIAL ONE (15:00)
[2023-02-08] MEDS ORDERED: PROPOFOL 10 MG/ML 20 ML VIAL IV ONE (15:00)
[2023-02-08] MEDS ORDERED: SODIUM CHLORIDE 0.9% 50 ML with ceFAZolin 2,000 MG IV ONE ×2 (15:10)
[2023-02-08] MEDS ORDERED: ceFAZolin 1,000 MG in SODIUM CHLORIDE 0.9% 1,000 ML IRRIGATION ONE (15:53)
[2023-02-08] MEDS ORDERED: BENZOCAINE/MENTHOL LOZENG 1 EACH LOZENGE MUCOUS MEM PRN (17:23)
[2023-02-08] MEDS ORDERED: MAGNESIUM HYDROXIDE 2,400 MG/30 ML CUP PO PRN (17:23)
[2023-02-08] MEDS ORDERED: SENNOSIDES-DOCUSATE SODIUM 1 EACH TAB PO PRN (17:23)
--- NOTE | 2023-02-08 17:32 | FL ---
Intraoperative/procedural fluoroscopic services were provided. Total fluoroscopy time is 15 seconds w ith a total of 4 submitted images to PACS. Please see the operative/procedural note for further renuka salvador. DAP: 1751.35 cGycm2
--- NOTE | 2023-02-08 17:37 | P.OP ---
Date of Procedure: 02/08/23 Preoperative Diagnosis: Severe spinal stenosis L2-3, left lower extremity radiculopathy, left lower extremity weakness, history of prior fusion L3 to S1, inability to ambulate Postoperative Diagnosis: Severe spinal stenosis L2-3, left lower extremity radiculopathy, left lower extremity weakness, history of prior fusion L3 to S1, inability to ambulate Anesthesia: GETA Pathology: none sent Condition: stable Disposition: PACU Description of Procedure: DESCRIPTION OF PROCEDURE(S): BRIEF OPERATIVE NOTE Preoperative Diagnosis: Severe spinal stenosis L2-3, left lower extremity radiculopathy, left lower extremity weakness, history of prior fusion L3 to S1, inability to ambulate Postoperative Diagnosis: Severe spinal stenosis L2-3, left lower extremity radiculopathy, left lower extremity weakness, history of prior fusion L3 to S1, inability to ambulate Procedure: Laminectomy and decompression L2-3 with wide bilateral foraminotomy and partial medial facetectomy Computer CT navigation aided Posterior lateral decompression and fusion L2-3 Use of computer navigation for fusion Local autogenous bone grafting Aspiration of bone marrow from the vertebral body pedicle Use of bone graft extenders Extension of fusion from prior L3 to S1 fusion to L2-3 Surgeon: Dr. Quinonez Lab Support Service Tech: Benny FERRER who is present throughout the entire the case persistence during positioning, dissection, exposure, visualization, and all crucial elements of the case as well as closure. Anesthesia: General anesthesia per Estimated blood loss: Approximately 200 mL Complications: None apparent Components implanted: K2M minimally invasive [place] pedicle screw system withscrews measuring 5.5 mm in diameter to 2 Toad Hop sabino connectors with a medium offset measuring 45 mm connected to the higher hardware sabino between L3 and 4, along with demineralized bone matrix sheets to supplement the local autogenous bone graft and bone marrow aspirate Disposition: To recovery room in good stable condition. OPERATIVE INDICATIONS The patient has had severe issues at their lower extremity in her lower back over the past several years with significant worsening over the past week. She is known to have severe changes at L2-3 with adjacent level degeneration and stenosis. She had prior fusion over a decade ago with fusion from L3 to S1 which had done well. Her hardware appears stable at that area. She'll be treated conservatively for the adjacent level degeneration at L2-3 and had been doing well however she had a severe acute exacerbation of her pain with inability to ambulate left lower extremity radiculopathy and weakness of left lower extremity this past week. The patient had been through interventional pain management in the past and we tried aggressive conservative treatment with medication and therapy. Patient was not able to get out of bed at all due to her pain her pain was excruciating for her requiring significant medication and monitoring and management. Her pain correlated well with the changes at L2-3. We discussed possibly trying further injections however the patient was interested in pursuing surgical intervention. With the severe stenosis and severe left lower extremity radicular symptoms and changes I felt that decompression could do her well. However the severe stenosis with discussed the significant decompression and bony removal and with the adjacent level degeneration and prior fusion I thought that she would have unstable level at L2-3 and would necessitate fusion and stabilization at the L2-3 level connecting to L3 S1 fusion. I discussed this with her at length. The patient has been through conservative treatment. We discussed various treatment options including surgery, and the patient wishes to proceed with surgery We discussed the risk, patient's alternatives and benefits of surgery including but not limited to, risk of bleeding risk of infection, risk of need for further surgery, risk of decreased, loss of motion, muscle function, malunion nonunion, hardware failure, nerve damage, paralysis, heart attack, blindness and . They understood issues with the current pandemic and the possibility of exposure. OPERATIVE SUMMARY After discussing all the risks, patient alternatives and benefits at length, the patient elected to proceed with surgical intervention, signed informed consent, and presented for their procedure. The patient was seen and examined in the preoperative holding area and the surgical site was marked. The patient was given antibiotics and brought to the operating room. The patient was sedated and intubated by anesthesia in standard fashion. The patient was positioned on to the operating room table in a prone position on the appropriate frame which was well-padded and well molded. We were careful to pad any bony prominences and pressure points. We were careful to maintain the patient's cervical spine and good neutral alignment and position throughout. The patient was prepped and draped in a normal standard fashion. An appropriate timeout and keystone protocol performed. We were able to proceed with the surgery. The local wound area was infiltrated with local anesthetic. I extended the patient's midline incision cephalad and was able to dissect down to the fascia which was split the midline. As able split down to dissect over the spinous process and lamina of L2 and over the screws at L3 and rods from L3 to 4.. I was able place the computer referencing device over the spinous process of L2 to get good bony stabilization of the CT referencing guide to establish an appropriate reference point for the Ziem CT navigation. We then were able to place patient in an appropriate drape and do a navigation spin for visualization and 3-D reconstruction of the lumbar spine. I was able utilize C- arm guidance and navigation to establish appropriate position over the pedicles bilaterally at the appropriate levels of L2. Utilizing the computer navigation device I was able to establish bony landmarks at the right iliac crest for a bony reference point for the navigation device. I was able to establish a Jamshidi needle over the lateral aspect of the pedicle bilaterally at L2 and advanced the trocar into the pedicle being careful not to breech superiorly inferiorly medially or laterally using computer navigation device. Position was confirmed regularly with AP and lateral images on C-arm and with the computer navigation device at the appropriate levels bilaterally. I was able to establish the trocar into the pedicle appropriately into the posterior aspect of the vertebral body bilaterally at the appropriate levels. This was done at each of the pedicle positions and each of the vertebrae. At the superior vertebrae of L2 I was able to take approximately 25 mL of bone aspiration for use later in the case to supplement the allograft and autograft bone. I was able place the guidewire into the trocar and into the vertebral body appropriately under C-arm guidance. The appropriate length screw was chosen, threaded over the guidewire and screwed appropriately into the pedicle and vertebral body under C-arm guidance in excellent alignment and position with good bony purchase. This is done at each of the screw sites at the appropriate levels of L2. I was able to easily visualize the pedicle screws at L3 4 and [address] the CT guidance which all had good alignment good position and appeared stable. The screws were checked and found have good stability throughout. I did not see evidence of loosening. I then turned my attention to the decompression. There is evidence of severe central and bilateral foraminal decompression L2-3. I was able to use a combination of curettes and Kerrison rongeurs and a high-speed drill to take down the facet joint and do a facetectomy. I was able get excellent foraminal decompression and central decompression and wide bilateral decompression. I had to remove significant amounts bone. As able get good central decompression. The ligamentum flavum was taken down to further decompress centrally and at bilateral neural foramen. There was severe central and bilateral foraminal stenosis which was remedied with the decompression. I was able to perform wide central and bilateral foraminal decompression L2-3 Good hemostasis maintained. There is no evidence of any dural tear or leak. The wound was irrigated and suctioned dry. With the hardware intact, intraoperative C-arm imaging was again taken which showed good alignment and position of the hardware at the appropriate levels of L2-3. We were then able to measure, contour and place the rods and appropriate hardware bilaterally. I was able to expose the rods between L3 4 and attach Toad Hop sabino system attachment between the screws to the rods at L34 and extend the sabino into the new screws at L2. This was done bilaterally I was able to place capcrews, tighten them down, and torque them with the torque screwdriver appropriately. With this intact I was able to place the local autogenous bone graft with additional bone graft enhancer as necessary into the posterior lateral gutters over the decorticated transverse processes and facet joints. With the bone graft intact, a stable construct, and good decompression at the appropriate levels, we were able to proceed with closure. Good hemostasis was maintained. There is no evidence of dural tear or leak. The fascia was closed for a watertight closure. he subcuticular tissue was closed with absorbable suture. The wound was cleaned and dried and dressed with the appropriate dressing. The drapes were broken down. The patient was gently rolled back onto their hospital bed being careful to maintain their cervical spine and good neutral alignment and position. They were woken up by anesthesia, extubated, and brought to the recovery room in good stable condition. The patient will be admitted to the hospital for appropriate postoperative care, medical management and monitoring. We will continue to follow them closely about the postoperative course.
[2023-02-08] MEDS ORDERED: HYDROmorphone 0.5 MG/0.5 ML SYRINGE IVP ONE (18:00)
[2023-02-08] MEDS: diphenhydrAMINE 25 MG CAP PO SCH (21:13)
[2023-02-08] MEDS: LATANOPROST 0.005% OPHTH DROPS 2.5 ML BTL BOTH EYES SCH (21:15)
[2023-02-09] MEDS: PANTOPRAZOLE 40 MG TABLET PO SCH (02:39)
[2023-02-09] MEDS: MECLIZINE 25 MG TAB PO SCH ×2 (02:39→17:27)
[2023-02-09] MEDS: LEVOTHYROXINE 100 MCG TAB PO SCH (02:39)
[2023-02-09] MEDS: DOCUSATE 100 MG CAP PO SCH ×3 (02:39→14:27)
[2023-02-09] MEDS: GABAPENTIN 400 MG CAP PO SCH ×3 (02:39→17:27)
[2023-02-09] MEDS: SOLIFENACIN 10 MG PO SCH (02:41)
[2023-02-09] MEDS: buPROPion XL 300 MG TAB.ER.24H PO SCH (02:50)
[2023-02-09] MEDS: HYDROmorphone 1 MG/ML 1 ML SYRINGE IVP PRN ×5 (04:19→21:57)
[2023-02-09] MEDS: EQUATE FIBER PO SCH ×2 (06:01→09:16)
--- NOTE | 2023-02-09 08:43 | P.PN ---
Progress Note - Text Progress Note Date: 02/09/23 Orthopedic spine: History of present illness: Patient is a very pleasant 67-year-old female well known to our services seen and examined the bedside for follow up evaluation of her lumbar spine. It went L2-3 open decompression and fusion with extension to hardware at L3-S1 yesterday, 02/08/2023. Postoperatively, she has had significant improvement of her left lower extremity radiculopathy and she feels her left lower extremity pain is much better controlled and she has good range of motion of her lower extremity. She is able to lie flat in bed today. She has been laying on her right side over the past 4-5 days. She does have some increased back pain at the surgical site but is happy with her progress so far postoperatively. She is requiring IV and oral medications for pain control. She continues to have a Hemovac drain intact. We did discuss she should work with physical therapy to try to transfer at least to a bedside chair today. She is planned for discharge to rehabilitation facility. She discussed discharge of the catalytic case operator yesterday. She would for to be discharged to [facility]. Patient continues to be seen and examined by medicine for her other medical diagnoses including hypothyroidism, fibromyalgia, GERD, and the time urinary bladder. Patient does have a permanent bladder catheter. She follows with urology in [place], [place]. She also has a colostomy. She is currently taking hydrocodone 10 mg/325 mg, cyclobenzaprine, and Dilaudid for pain control. She has also been receiving Solu-Medrol which we will taper down. Physical exam: Postoperative day #1 Patient is awake, alert, and oriented 3 Vital signs stable Good chest excursion with deep inspiration and expiration Patient currently lying flat in bed Dressing over the surgical site of the lumbar spine is clean, dry, and intact Hemovac drain is intact at the surgical site at the lumbar spine Dorsiflexion, plantarflexion, and extensor hallucis longus positive sustained bilaterally Patient is able to perform good active range of motion of the bilateral lower extremities independently without significant difficulty No signs or symptoms of DVT; no calf pain No pain with internal and external rotation of the hips bilaterally Bladder catheter intact with catheter bag attached Pertinent studies: CT of the lumbar spine taken on 02/04/2023: L2-3 significant adjacent level degenerative change with severe central spinal stenosis and foraminal stenosis; evidence of L3-S1 fusion with retained hardware which remains in good alignment and good position and appears to be adequately decompressed with evidence of good bony fusion CT of the lumbar spine taken on 09/16/2022: L2-3 significant adjacent level degenerative change and spinal stenosis; evidence of L3-S1 fusion with retained hardware which remains in good alignment and good position and appears to be adequately decompressed Assessment: Status post L2-3 open decompression and fusion with extension to intact lumbar fusion hardware at L3-S1 Low back pain L2-3 severe adjacent level degenerative disc disease L2-3 severe spinal stenosis Debilitating left lower extremity radiculopathy Difficulty with ambulation due to left lower extremity pain History of L3-S1 lumbosacral fusion with retained hardware Difficulty with ambulation Permanent bladder catheter Hypothyroidism Fibromyalgia GERD Plan: 1. Ambulate as tolerated; work with Physical Therapy to increase mobilization 2. Continue pain control with IV and oral medications including IV Dilaudid, cyclobenzaprine, and hydrocodone 10 mg/325 mg 3. Dressings to remain intact with Optifoam; patient may shower with dressings intact 4. Hemovac drain will remain intact. We will plan to discontinue her drain tomorrow. 5. Patient has been on Solu-Medrol 80 mg every 12 hours. We will reduce his 60 mg daily 2 days and then transitioned to an oral taper. 6. Medical management can continue to manage patient for patient's other medical diagnoses 7. We will continue to follow the patient closely; patient does live at home alone and would have difficulty managing at home independently. Once the patient's pain is better controlled with oral medications and she is cleared and approved, we will plan for discharge to a rehabilitation facility at the time of discharge. Patient has had discussion with case management and would prefer discharged to [facility]. 8. Patient can follow-up with Benny Gómez PA-C or Dr. Clifton Quinonez at [facility] in 2-3 weeks following discharge
--- NOTE | 2023-02-09 08:44 | P.PN ---
Subjective Progress Note Date: 02/09/23 Principal diagnosis: left hip pain This is a 67-year-old female who is admitted after complaining of left hip pain. She has a significant medical history of lumbar spinal fusion L3 to S1. She had been stretching and felt a pop in her left hip so she presented to the emergency room with significant pain. She follows with Dr. Quinonez. She still is unable to ambulate and is having great difficulty trying to sit up in bed. The last few days she's been maintained on pain medication IV steroids with little improvement. Today Dr. Quinonez will proceed with decompression and fusion at L2- 3. Patient is seen this morning alert and oriented laying in bed. Still complaining of significant pain. 02/09/2023 Patient is postop day 1 decompression and fusion at L2-[address] Devi jefferson. Patient reports she is already feeling better. She is able to lift her left leg with no pain. Case management has been consulted for possible placement with rehab for discharge. Patient reports pain is better controlled at this time. Objective - Vital Signs Vital signs: Vital Signs Temp 98.2 F 02/09/23 08:30 Pulse 79 02/09/23 08:30 Resp 20 02/09/23 08:30 BP 133/79 02/09/23 08:30 Pulse Ox 95 02/09/23 08:30 FiO2 Intake & Output 02/08/23 02/09/23 02/09/23 18:59 06:59 18:59 Intake Total 1551 118 Output Total 1500 3850 Balance 51 -3732 Intake: IV 1551 Oral 118 Output: Urine 1250 3850 Estimated Blood Loss 250 Other: Voiding Method Indwelling Catheter Indwelling Catheter - Constitutional General appearance: Present: cooperative, no acute distress - EENT Eyes: Present: PERRLA - Neck Neck: Present: normal ROM. Absent: lymphadenopathy, rigidity - Respiratory Respiratory: bilateral: CTA - Cardiovascular Rhythm: regular Heart sounds: normal: S1, S2 - Gastrointestinal General gastrointestinal: Present: soft. Absent: tenderness - Integumentary Integumentary: Present: normal, normal turgor - Musculoskeletal Musculoskeletal: Present: generalized weakness - Psychiatric Psychiatric: Present: A&O x's 3, appropriate affect, intact judgment & insight - Labs CBC & Chem 7: 02/08/23 06:10 02/08/23 06:38 Labs: Abnormal Lab Results - Last 24 Hours (Table) 02/08/23 02/08/23 Range/Units 06:10 06:38 WBC 16.49 H (4.50-10.00) X 10*3/uL BUN/Creatinine Ratio 32.29 H (12.00-20.00) Ratio Assessment and Plan (1) Hip pain Current Visit: Yes Status: Acute Code(s): M25.559 - PAIN IN UNSPECIFIED HIP SNOMED Code(s): 89259642 (2) Back pain Current Visit: No Status: Acute Code(s): M54.9 - DORSALGIA, UNSPECIFIED SNOMED Code(s): 852278054 (3) Inability to ambulate due to left hip Current Visit: Yes Status: Acute Code(s): R26.2 - DIFFICULTY IN WALKING, NOT ELSEWHERE CLASSIFIED SNOMED Code(s): 174088506 (4) Fibromyalgia Current Visit: No Status: Acute Code(s): M79.7 - FIBROMYALGIA SNOMED Code(s): 116190448 (5) GERD (gastroesophageal reflux disease) Current Visit: No Status: Acute Code(s): K21.9 - GASTRO-ESOPHAGEAL REFLUX DISEASE WITHOUT ESOPHAGITIS SNOMED Code(s): 517803355 (6) History of degenerative disc disease Current Visit: No Status: Acute Code(s): Z87.39 - PERSONAL HISTORY OF DISEASES OF THE MS SYS AND CONN TISS SNOMED Code(s): 132924579 (7) Hypothyroidism Current Visit: No Status: Acute Code(s): E03.9 - HYPOTHYROIDISM, UNSPECIFIED SNOMED Code(s): 46464003 Plan: Continue to follow postop instructions from surgeon. Encourage use of incentive spirometer. Case management to work on placement for rehab for discharge. Check CBC and CMP in the morning. Patient seen and evaluated by nurse practitioner, physician in agreement with plan
[2023-02-09] MEDS: methylPREDNISolone SOD SUCCI 125 MG/2 ML VIAL IV SCH (09:02)
[2023-02-09] MEDS: CHOLECALCIFEROL 25 MCG (1000 IU) TABLET PO SCH (09:02)
[2023-02-09] MEDS: ENOXAPARIN 40 MG/0.4 ML SYRINGE SQ SCH (09:02)
[2023-02-09] MEDS: FOLIC ACID-VIT B COMPLEX-VIT C 1 CAP PO SCH (09:02)
[2023-02-09] MEDS: MULTIVITAMINS, THERA 1 EACH TAB PO SCH (09:02)
[2023-02-09] MEDS: SENNOSIDES-DOCUSATE SODIUM 1 EACH TAB PO SCH (09:02)
[2023-02-09] MEDS: polyethylene glycoL 3350 17 GM POWD.PACK PO SCH ×2 (09:03→14:28)
[2023-02-09] MEDS: SODIUM CHLORIDE 0.9% 1,000 ML IV SCH ×3 (09:07→20:25)
[2023-02-09] MEDS: SENNOSIDES 25 MG PO SCH ×3 (09:09→20:25)
[2023-02-09] MEDS: METHOCARBAMOL 750 MG PO SCH ×3 (09:09→20:27)
[2023-02-09] MEDS: FLUTICASONE 50MCG/SPRAY NASAL 16GM EA NOSTRIL SCH (09:15)
[2023-02-09 11:01] LABS: HCT 41.2 % (37.2-46.3); HGB 13.4 d/dL (12.0-15.0); MCH 30.5 pg (27.0-32.0); MCHC 32.5 d/dL (32.0-37.0); MCV 93.8 FL (80.0-97.0); Mean Platelet Volume 10.6 FL (9.5-12.2); NRBC Per 100 WBC 0 X 10*3/uL (0.00-0.01); Platelet Count 278 X 10*3/uL (140-440); RBC 4.39 X 10*6/uL (4.10-5.20); WBC 20.54 X 10*3/uL (4.50-10.00)
[2023-02-09 11:06] LABS: ALT 36 U/L (8-44); AST 40 U/L (13-35); Albumin 3.9 d/dL (3.8-4.9); Albumin/Globulin Ratio 1.77 Ratio (1.60-3.17); Alkaline Phosphatase 99 U/L (41-126); BUN/Creat Ratio 33.71 Ratio (12.00-20.00); Blood Urea Nitrogen 23.6 mg/dL (9.0-27.0); Calcium 9.3 mg/dL (8.7-10.3); Chloride 102 mmol/L (96-109); Globulin 2.2 d/dL (1.6-3.3); Glucose 124 mg/dL (70-110); Potassium 4.8 mmol/L (3.5-5.5); Sodium 138 mmol/L (135-145); Total Bilirubin 0.2 mg/dL (0.3-1.2); Total Protein 6.1 d/dL (6.2-8.2)
[2023-02-09] MEDS: HYDROcodone/APAP 10-325MG 1 EACH TAB PO PRN (11:54)
[2023-02-09 12:18] LABS: Basophils # (A) 0.05 X 10*3/uL (0.00-0.10); Basophils % (A) 0.2 %; Eosinophils # (A) 0 X 10*3/uL (0.04-0.35); Eosinophils % (A) 0 %; Lymphocytes # (A) 1.89 X 10*3/uL (0.90-5.00); Lymphocytes % (A) 9.2 %; Monocytes # (A) 1.91 X 10*3/uL (0.20-1.00); Monocytes % (A) 9.3 %; Neutrophils # (A) 16.29 X 10*3/uL (1.80-7.70); Neutrophils % (A) 79.4 %; RBC Morphology Normal (Normal)
[2023-02-09] MEDS: LATANOPROST 0.005% OPHTH DROPS 2.5 ML BTL BOTH EYES SCH (17:28)
[2023-02-09] MEDS: diphenhydrAMINE 25 MG CAP PO SCH (20:25)
[2023-02-10] MEDS: HYDROcodone/APAP 10-325MG 1 EACH TAB PO PRN (00:54)
[2023-02-10] MEDS: LEVOTHYROXINE 100 MCG TAB PO SCH (00:57)
[2023-02-10] MEDS: DOCUSATE 100 MG CAP PO SCH ×3 (00:58→18:16)
[2023-02-10] MEDS: GABAPENTIN 400 MG CAP PO SCH ×3 (00:58→18:16)
[2023-02-10] MEDS: PANTOPRAZOLE 40 MG TABLET PO SCH (00:58)
[2023-02-10] MEDS: MECLIZINE 25 MG TAB PO SCH ×2 (00:58→18:16)
[2023-02-10] MEDS: buPROPion XL 300 MG TAB.ER.24H PO SCH (00:59)
[2023-02-10] MEDS: SOLIFENACIN 10 MG PO SCH (01:01)
[2023-02-10] MEDS: HYDROmorphone 1 MG/ML 1 ML SYRINGE IVP PRN ×6 (01:54→22:15)
[2023-02-10] MEDS: EQUATE FIBER PO SCH ×2 (05:50→10:28)
[2023-02-10] MEDS: SODIUM CHLORIDE 0.9% 1,000 ML IV SCH ×2 (05:52→16:41)
--- NOTE | 2023-02-10 08:43 | P.PN ---
Subjective Principal diagnosis: Immobility related to back pain. The patient is postop day #2 for lumbar decompression. The patient is much imp roved. No ambulation yesterday and I told her that we need to get more motion today. No fever or chills. Nausea, vomiting or diarrhea. The patient is tolerating diet. Pain is nominal Objective - Vital Signs Vital signs: Vital Signs Temp 99.1 F 02/10/23 08:09 Pulse 96 02/10/23 08:09 Resp 18 02/10/23 08:09 BP 129/69 02/10/23 08:09 Pulse Ox 93 L 02/10/23 08:09 FiO2 Intake & Output 02/09/23 02/10/23 02/10/23 18:59 06:59 18:59 Output Total 1200 3480 Balance -1200 -3480 Output: Drainage 80 Back 80 Urine 1200 3400 Other: Voiding Method Indwelling Catheter Indwelling Catheter Indwelling Catheter - Constitutional General appearance: Present: average body habitus - EENT Eyes: Present: PERRLA - Neck Neck: Absent: lymphadenopathy - Respiratory Respiratory: bilateral: CTA - Cardiovascular Rhythm: regular Heart sounds: normal: S1, S2 Abnormal Heart Sounds: Absent: S3 Gallop - Gastrointestinal General gastrointestinal: Present: soft. Absent: tenderness - Musculoskeletal Musculoskeletal Comment(s): Moving her extremity is nominal. - Labs CBC & Chem 7: 02/09/23 05:58 02/09/23 05:58 Labs: Abnormal Lab Results - Last 24 Hours (Table) 02/09/23 02/09/23 Range/Units 05:58 05:58 WBC 20.54 H (4.50-10.00) X 10*3/uL Neutrophils # 16.29 H (1.80-7.70) X 10*3/uL Monocytes # 1.91 H (0.20-1.00) X 10*3/uL Eosinophils # 0 L (0.04-0.35) X 10*3/uL BUN/Creatinine Ratio 33.71 H (12.00-20.00) Ratio Glucose 124 H (70-110) mg/dL Total Bilirubin 0.2 L (0.3-1.2) mg/dL AST 40 H (13-35) U/L Total Protein 6.1 L (6.2-8.2) d/dL Assessment and Plan (1) Hip pain Current Visit: Yes Status: Acute Code(s): M25.559 - PAIN IN UNSPECIFIED HIP SNOMED Code(s): 11615125 (2) Inability to ambulate due to left hip Current Visit: Yes Status: Acute Code(s): R26.2 - DIFFICULTY IN WALKING, NOT ELSEWHERE CLASSIFIED SNOMED Code(s): 620231225 (3) Arthritis Current Visit: No Status: Acute Code(s): M19.90 - UNSPECIFIED OSTEOARTHRITIS, UNSPECIFIED SITE SNOMED Code(s): 0867262 (4) Atonic urinary bladder Current Visit: No Status: Acute Code(s): N31.2 - FLACCID NEUROPATHIC BLADDER, NOT ELSEWHERE CLASSIFIED SNOMED Code(s): 329744599 (5) Back pain Current Visit: No Status: Acute Code(s): M54.9 - DORSALGIA, UNSPECIFIED SNOMED Code(s): 458812303 (6) Cervical stenosis of spinal canal Current Visit: No Status: Acute Code(s): M48.02 - SPINAL STENOSIS, CERVICAL REGION SNOMED Code(s): 11416866 (7) Depression Current Visit: No Status: Chronic Code(s): F32.9 - MAJOR DEPRESSIVE DISORDER, SINGLE EPISODE, UNSPECIFIED SNOMED Code(s): 57354351 Plan: Continue proper pain control. Much improvement after surgery. ECF/rehab for discharge. Continue appropriate pain control. Check CBC and CMP in a.m. Time with Patient: Greater than 30
[2023-02-10 09:40] LABS: HCT 39.7 % (37.2-46.3); MCH 30.9 pg (27.0-32.0); MCHC 32.7 d/dL (32.0-37.0); MCV 94.3 FL (80.0-97.0); Mean Platelet Volume 10.7 FL (9.5-12.2); NRBC Per 100 WBC 0 X 10*3/uL (0.00-0.01); Platelet Count 198 X 10*3/uL (140-440); RBC 4.21 X 10*6/uL (4.10-5.20); RDW 14.1 % (11.5-14.5); WBC 16.26 X 10*3/uL (4.50-10.00)
[2023-02-10] MEDS: SENNOSIDES-DOCUSATE SODIUM 1 EACH TAB PO SCH (10:17)
[2023-02-10] MEDS: FOLIC ACID-VIT B COMPLEX-VIT C 1 CAP PO SCH (10:17)
[2023-02-10] MEDS: ENOXAPARIN 40 MG/0.4 ML SYRINGE SQ SCH (10:17)
[2023-02-10] MEDS: CHOLECALCIFEROL 25 MCG (1000 IU) TABLET PO SCH (10:17)
[2023-02-10] MEDS: ONDANSETRON 4 MG/2 ML VIAL IVP PRN (10:18)
[2023-02-10] MEDS: polyethylene glycoL 3350 17 GM POWD.PACK PO SCH ×2 (10:18→18:12)
[2023-02-10] MEDS: methylPREDNISolone SOD SUCCI 125 MG/2 ML VIAL IV SCH (10:20)
[2023-02-10] MEDS: FLUTICASONE 50MCG/SPRAY NASAL 16GM EA NOSTRIL SCH (10:26)
[2023-02-10] MEDS: METHOCARBAMOL 750 MG PO SCH ×3 (10:27→21:03)
[2023-02-10] MEDS: SENNOSIDES 25 MG PO SCH ×3 (10:27→21:02)
[2023-02-10] MEDS: MULTIVITAMINS, THERA 1 EACH TAB PO SCH (10:28)
[2023-02-10 11:07] LABS: ALT 33 U/L (8-44); AST 34 U/L (13-35); Albumin 3.5 d/dL (3.8-4.9); Albumin/Globulin Ratio 1.59 Ratio (1.60-3.17); Alkaline Phosphatase 97 U/L (41-126); BUN/Creat Ratio 24.57 Ratio (12.00-20.00); Blood Urea Nitrogen 17.2 mg/dL (9.0-27.0); Carbon Dioxide 21.5 mmol/L (21.6-31.8); Chloride 104 mmol/L (96-109); Globulin 2.2 d/dL (1.6-3.3); Glucose 107 mg/dL (70-110); Potassium 3.9 mmol/L (3.5-5.5); Sodium 138 mmol/L (135-145); Total Bilirubin 0.4 mg/dL (0.3-1.2); Total Protein 5.7 d/dL (6.2-8.2)
--- NOTE | 2023-02-10 11:42 | P.PN ---
Progress Note - Text Progress Note Date: 02/10/23 Orthopedic spine: History of present illness: Patient is a very pleasant 67-year-old female well known to our services seen and examined the bedside for follow up evaluation of her lumbar spine. It went L2-3 open decompression and fusion with extension to hardware at L3-S1 02/08/2023. Postoperatively, she has had significant improvement of her left lower extremity radiculopathy and she feels her left lower extremity pain is much better controlled and she has good range of motion of her lower extremity. She is able to lie flat in bed. However, she is extremely some increased pain today over her anterior thighs and at the surgical site as compared to yesterday. She is requiring IV and oral medications for pain control. She does not feel the oral hydrocodone is controlling her pain. She continues to have a Hemovac drain intact. She was able to work with physical therapy yesterday in transfer today bedside chair. She states she was out of bed for approximately 4 hours. Therapy is planning to work with her again today. She is planned for discharge to rehabilitation facility. Patient has been discussed in detail case management. She has been approved for discharge to [facility]. Patient continues to be seen and examined by medicine for her other medical diagnoses including hypothyroidism, fibromyalgia, GERD, and the time urinary bladder. Patient does have a permanent bladder catheter. She follows with [facility]ju peter in [place], [place]. She also has a colostomy. She is currently taking hydrocodone 10 mg/325 mg, cyclobenzaprine, and Dilaudid for pain control. She has also been receiving Solu-Medrol which we are tapering down. Physical exam: Postoperative day #2 Patient is awake, alert, and oriented 3 Vital signs stable Good chest excursion with deep inspiration and expiration Patient currently lying flat in bed Dressing over the surgical site of the lumbar spine is clean, dry, and intact Hemovac drain is intact at the surgical site at the lumbar spine; Hemovac drain is removed with dressing reapplied over the drain site Dorsiflexion, plantarflexion, and extensor hallucis longus positive sustained bilaterally Patient is able to perform good active range of motion of the bilateral lower extremities independently without significant difficulty No signs or symptoms of DVT; no calf pain No pain with internal and external rotation of the hips bilaterally Bladder catheter intact with catheter bag attached Pertinent studies: CT of the lumbar spine taken on 02/04/2023: L2-3 significant adjacent level degenerative change with severe central spinal stenosis and foraminal stenosis; evidence of L3-S1 fusion with retained hardware which remains in good alignment and good position and appears to be adequately decompressed with evidence of good bony fusion CT of the lumbar spine taken on 09/16/2022: L2-3 significant adjacent level degenerative change and spinal stenosis; evidence of L3-S1 fusion with retained hardware which remains in good alignment and good position and appears to be adequately decompressed Assessment: Status post L2-3 open decompression and fusion with extension to intact lumbar fusion hardware at L3-S1 Low back pain L2-3 severe adjacent level degenerative disc disease L2-3 severe spinal stenosis Debilitating left lower extremity radiculopathy Difficulty with ambulation due to left lower extremity pain History of L3-S1 lumbosacral fusion with retained hardware Difficulty with ambulation Permanent bladder catheter Hypothyroidism Fibromyalgia GERD Plan: 1. Ambulate as tolerated; work with Physical Therapy to increase mobilization 2. Continue pain control with IV and oral medications including IV Dilaudid and cyclobenzaprine. We will plan to add Percocet 5 mg/325 mg 1 tab every 4 hours as needed for pain. We'll discontinue hydrocodone 10 mg/325 mg. 3. Dressings to remain intact with Optifoam; patient may shower with dressings intact; Hemovac drain has been discontinued with placement of Tegaderm dressing. Patient may shower with this dressing intact as well. 4. Patient has been seen and discharged to [facility] rehabilitation facility has been discussed. This has been approved. We'll plan for discharge to [facility] once the patient is stable and her pain is better controlled. She does continue significant difficulty with pain control and continues to require IV and oral medications for pain control. She has some improvement today, we'll plan to begin to wean her off of IV pain medication tomorrow. We did discuss if she has improvement in his able to discontinue IV pain medication, we will plan for discharge to [facility] rehabilitation facility as early as this coming 02/12/2023. 5. Patient continue with Solu-Medrol 60 mg daily. We'll plan to transition her to an oral taper tomorrow. 6. Medical management can continue to manage patient for patient's other medical diagnoses 7. We will continue to follow the patient closely 8. Patient can follow-up with Benny B. Kiba PA-C or Dr. Clifton Quinonez at [facility] in 2-3 weeks following discharge
[2023-02-10] MEDS: oxyCODONE-APAP 5-325MG 1 EACH TAB PO PRN ×2 (14:22→18:41)
[2023-02-10] MEDS: LATANOPROST 0.005% OPHTH DROPS 2.5 ML BTL BOTH EYES SCH (18:17)
[2023-02-10] MEDS: CYCLOBENZAPRINE 10 MG TAB PO PRN (20:26)
[2023-02-10] MEDS: diphenhydrAMINE 25 MG CAP PO SCH (20:26)
[2023-02-11] MEDS: LEVOTHYROXINE 100 MCG TAB PO SCH (01:07)
[2023-02-11] MEDS: buPROPion XL 300 MG TAB.ER.24H PO SCH (01:07)
[2023-02-11] MEDS: GABAPENTIN 400 MG CAP PO SCH ×3 (01:07→17:08)
[2023-02-11] MEDS: oxyCODONE-APAP 5-325MG 1 EACH TAB PO PRN ×4 (01:07→17:31)
[2023-02-11] MEDS: PANTOPRAZOLE 40 MG TABLET PO SCH (01:07)
[2023-02-11] MEDS: MECLIZINE 25 MG TAB PO SCH ×2 (01:07→17:08)
[2023-02-11] MEDS: DOCUSATE 100 MG CAP PO SCH ×3 (01:07→17:08)
[2023-02-11] MEDS: SODIUM CHLORIDE 0.9% 1,000 ML IV SCH ×2 (02:20→17:10)
[2023-02-11] MEDS: SOLIFENACIN 10 MG PO SCH (02:21)
[2023-02-11] MEDS: HYDROmorphone 1 MG/ML 1 ML SYRINGE IVP PRN ×2 (02:25→06:28)
[2023-02-11] MEDS: EQUATE FIBER PO SCH ×2 (05:09→11:28)
--- NOTE | 2023-02-11 08:04 | P.PN ---
Progress Note - Text Progress Note Date: 02/11/23 Postoperative day #3 Patient is seen and examined today at bedside. The patient has some pain around the surgical site as expected. Pain is being controlled with medication. Her pain is much improved compared to preoperatively. She still has soreness at her proximal thighs but her motion is significantly better. She says she has occasional bouts where the pain is rough but it is controlled with medication. Physical Exam Afebrile with stable vital signs Abdomen is soft nontender. Her suprapubic catheter is intact and clean. Her ostomy is intact and clean. Chest has good excursion deep and space expiration The incision site is clean dry and intact. No erythema there is no purulence. There is no active drainage. There is no erythema. Extremities have had neurologic improvement from prior to surgery. She moved somewhat better at her bilateral lower extremities. She was able to get up and walk. She lifts her legs off the bed individually. Calves and thighs were soft nontender without evidence of DVT. Assessment/Plan Postoperative day #3 status post L2-3 decompression and fusion for her severe stenosis with lower extremity radiculopathy and weakness with extension of her fusion from L3 to S1 Gradually improving mobility and ambulation Patient is progressing as expected from the surgery. She has made some improvement in her mobility and her ambulation. She still working with physical therapy as she is not quite safe transferring and ambulate on her own. We will continue to increase the patient's mobilization with therapy. We will continue pain control with oral or IV medications. She still requiring occasional IV medication for breakthrough pain and hopefully she'll be able to transition to full oral medications. She started on Percocet yesterday which seems to be doing a bit better job for her. She is making steady progress and I think should be okay for transfer to [facility] nursing [facility] [place] tomorrow. We'll continue to follow patient closely.
--- NOTE | 2023-02-11 08:34 | P.PN ---
Subjective Progress Note Date: 02/11/23 Principal diagnosis: left hip pain This is a 67-year-old female who is admitted after complaining of left hip pain. She has a significant medical history of lumbar spinal fusion L3 to S1. She had been stretching and felt a pop in her left hip so she presented to the emergency room with significant pain. She follows with Dr. Quinonez. She still is unable to ambulate and is having great difficulty trying to sit up in bed. The last few days she's been maintained on pain medication IV steroids with little improvement. Today Dr. Quinonez will proceed with decompression and fusion at L2- 3. Patient is seen this morning alert and oriented laying in bed. Still complaining of significant pain. 02/09/2023 Patient is postop day 1 decompression and fusion at L2-[address] Devi jefferson. Patient reports she is already feeling better. She is able to lift her left leg with no pain. Case management has been consulted for possible placement with rehab for discharge. Patient reports pain is better controlled at this time. 02/11/23 Patient is postop day #3 decompression and fusion L2-[address] Quinonez. She continues to have issues with pain control, has needed IV meds for breakthrough pain. She is also unable to ambulate on her own and is working with physical therapy. Plan is for discharge to [facility] possibly tomorrow. Objective - Vital Signs Vital signs: Vital Signs Temp 98.2 F 02/11/23 07:10 Pulse 79 02/11/23 07:10 Resp 18 02/11/23 07:10 BP 103/63 02/11/23 07:10 Pulse Ox 94 L 02/11/23 07:10 FiO2 Intake & Output 02/10/23 02/11/23 02/11/23 18:59 06:59 18:59 Intake Total 1800 118 Output Total 1600 1275 Balance -1600 525 118 Intake: Intake, IV Titration 1200 Amount Sodium Chloride 0.9% 1, 1200 000 ml @ 100 mls/hr IV . Q10H [facility] Rx#:[id number] Oral 600 118 Output: Urine 1600 1275 Other: Voiding Method Indwelling Catheter Indwelling Catheter - Constitutional General appearance: Present: cooperative, no acute distress - EENT Eyes: Present: PERRLA - Neck Neck: Present: normal ROM. Absent: lymphadenopathy, rigidity - Respiratory Respiratory: bilateral: CTA - Cardiovascular Rhythm: regular Heart sounds: normal: S1, S2 - Gastrointestinal General gastrointestinal: Present: soft. Absent: tenderness - Integumentary Integumentary: Present: normal, normal turgor - Musculoskeletal Musculoskeletal: Present: generalized weakness - Psychiatric Psychiatric: Present: A&O x's 3, appropriate affect, intact judgment & insight - Labs CBC & Chem 7: 02/10/23 06:36 02/10/23 06:36 Labs: Abnormal Lab Results - Last 24 Hours (Table) 02/10/23 02/10/23 Range/Units 06:36 06:36 WBC 16.26 H (4.50-10.00) X 10*3/uL Carbon Dioxide 21.5 L (21.6-31.8) mmol/L Anion Gap 12.50 H (4.00-12.00) mmol/L BUN/Creatinine Ratio 24.57 H (12.00-20.00) Ratio Total Protein 5.7 L (6.2-8.2) d/dL Albumin 3.5 L (3.8-4.9) d/dL Albumin/Globulin Ratio 1.59 L (1.60-3.17) Ratio Assessment and Plan (1) Hip pain Current Visit: Yes Status: Acute Code(s): M25.559 - PAIN IN UNSPECIFIED HIP SNOMED Code(s): 48602034 (2) Back pain Current Visit: No Status: Acute Code(s): M54.9 - DORSALGIA, UNSPECIFIED SNOMED Code(s): 642313089 (3) Inability to ambulate due to left hip Current Visit: Yes Status: Acute Code(s): R26.2 - DIFFICULTY IN WALKING, NOT ELSEWHERE CLASSIFIED SNOMED Code(s): 460845753 (4) Fibromyalgia Current Visit: No Status: Acute Code(s): M79.7 - FIBROMYALGIA SNOMED Code(s): 448995508 (5) GERD (gastroesophageal reflux disease) Current Visit: No Status: Acute Code(s): K21.9 - GASTRO-ESOPHAGEAL REFLUX DISEASE WITHOUT ESOPHAGITIS SNOMED Code(s): 444809182 (6) History of degenerative disc disease Current Visit: No Status: Acute Code(s): Z87.39 - PERSONAL HISTORY OF DISEASES OF THE MS SYS AND CONN TISS SNOMED Code(s): 508214422 (7) Hypothyroidism Current Visit: No Status: Acute Code(s): E03.9 - HYPOTHYROIDISM, UNSPECIFIED SNOMED Code(s): 78282782 Plan: Continue to follow postop instructions from surgeon. Encourage use of incentive spirometer. Plan for discharge to [facility] for rehab in the next 24-48 hours. Patient seen and evaluated by nurse practitioner, physician in agreement with plan
[2023-02-11] MEDS: CYCLOBENZAPRINE 10 MG TAB PO PRN (09:53)
[2023-02-11] MEDS: HYDROmorphone 0.5 MG/0.5 ML SYRINGE IVP PRN ×4 (09:53→21:51)
[2023-02-11] MEDS: ENOXAPARIN 40 MG/0.4 ML SYRINGE SQ SCH (10:04)
[2023-02-11] MEDS: SENNOSIDES-DOCUSATE SODIUM 1 EACH TAB PO SCH (10:05)
[2023-02-11] MEDS: SENNOSIDES 25 MG PO SCH ×3 (10:07→21:50)
[2023-02-11] MEDS: FLUTICASONE 50MCG/SPRAY NASAL 16GM EA NOSTRIL SCH (10:07)
[2023-02-11] MEDS: METHOCARBAMOL 750 MG PO SCH ×3 (10:07→21:50)
[2023-02-11 10:51] LABS: HCT 37.8 % (37.2-46.3); HGB 11.8 d/dL (12.0-15.0); MCH 30.2 pg (27.0-32.0); MCHC 31.2 d/dL (32.0-37.0); MCV 96.7 FL (80.0-97.0); Mean Platelet Volume 11.2 FL (9.5-12.2); NRBC Per 100 WBC 0 X 10*3/uL (0.00-0.01); Platelet Count 228 X 10*3/uL (140-440); RBC 3.91 X 10*6/uL (4.10-5.20); RDW 14.1 % (11.5-14.5); WBC 17.13 X 10*3/uL (4.50-10.00)
[2023-02-11 11:05] LABS: ALT 34 U/L (8-44); AST 25 U/L (13-35); Albumin 3.4 d/dL (3.8-4.9); Albumin/Globulin Ratio 1.62 Ratio (1.60-3.17); Alkaline Phosphatase 94 U/L (41-126); Blood Urea Nitrogen 16.5 mg/dL (9.0-27.0); Calcium 8.9 mg/dL (8.7-10.3); Carbon Dioxide 20.8 mmol/L (21.6-31.8); Chloride 107 mmol/L (96-109); Globulin 2.1 d/dL (1.6-3.3); Glucose 136 mg/dL (70-110); Potassium 3.9 mmol/L (3.5-5.5); Sodium 139 mmol/L (135-145); Total Bilirubin 0.3 mg/dL (0.3-1.2); Total Protein 5.5 d/dL (6.2-8.2)
[2023-02-11] MEDS: polyethylene glycoL 3350 17 GM POWD.PACK PO SCH ×2 (11:25→17:08)
[2023-02-11] MEDS: MULTIVITAMINS, THERA 1 EACH TAB PO SCH (11:26)
[2023-02-11] MEDS: CHOLECALCIFEROL 25 MCG (1000 IU) TABLET PO SCH (11:27)
[2023-02-11] MEDS: methylPREDNISolone SOD SUCCI 125 MG/2 ML VIAL IV SCH (11:54)
[2023-02-11] MEDS: FOLIC ACID-VIT B COMPLEX-VIT C 1 CAP PO SCH (11:57)
[2023-02-11] MEDS: LATANOPROST 0.005% OPHTH DROPS 2.5 ML BTL BOTH EYES SCH (17:10)
[2023-02-11] MEDS: diphenhydrAMINE 25 MG CAP PO SCH (21:49)
[2023-02-12] MEDS: HYDROmorphone 0.5 MG/0.5 ML SYRINGE IVP PRN ×3 (00:52→09:25)
[2023-02-12] MEDS: SODIUM CHLORIDE 0.9% 1,000 ML IV SCH ×2 (00:54→06:24)
[2023-02-12] MEDS: buPROPion XL 300 MG TAB.ER.24H PO SCH (01:55)
[2023-02-12] MEDS: LEVOTHYROXINE 100 MCG TAB PO SCH (01:55)
[2023-02-12] MEDS: DOCUSATE 100 MG CAP PO SCH ×2 (01:55→09:31)
[2023-02-12] MEDS: GABAPENTIN 400 MG CAP PO SCH ×2 (01:55→09:34)
[2023-02-12] MEDS: MECLIZINE 25 MG TAB PO SCH (01:56)
[2023-02-12] MEDS: SOLIFENACIN 10 MG PO SCH (01:56)
[2023-02-12] MEDS: PANTOPRAZOLE 40 MG TABLET PO SCH (02:00)
[2023-02-12] MEDS: oxyCODONE-APAP 5-325MG 1 EACH TAB PO PRN ×2 (06:23→12:31)
[2023-02-12] MEDS: EQUATE FIBER PO SCH ×2 (06:24→09:32)
[2023-02-12 08:17] VITALS: RESP 18
--- NOTE | 2023-02-12 08:52 | P.PN ---
Subjective Principal diagnosis: Immobility related to back pain. The patient is postop day #4for lumbar decompression. The patient is much impr michael. Increased yesterday and I told her that we need to get more motion today. No fever or chills. Nausea, vomiting or diarrhea. The patient is tolerating diet. Pain is nominal Objective - Vital Signs Vital signs: Vital Signs Temp 98.7 F 02/12/23 07:08 Pulse 86 02/12/23 07:08 Resp 18 02/12/23 07:08 BP 130/69 02/12/23 07:08 Pulse Ox 96 02/12/23 08:50 FiO2 Intake & Output 02/11/23 02/12/23 02/12/23 18:59 06:59 18:59 Intake Total 218 Output Total 700 1950 Balance -482 -1950 Intake: Oral 218 Output: Urine 700 1900 Stool 50 Other: Voiding Method Indwelling Catheter Indwelling Catheter - Constitutional General appearance: Present: average body habitus - EENT Eyes: Absent: abnormal pupil - Neck Neck: Absent: lymphadenopathy - Respiratory Respiratory: bilateral: diminished - Cardiovascular Rhythm: regular Heart sounds: normal: S1, S2 Abnormal Heart Sounds: Absent: S3 Gallop - Gastrointestinal General gastrointestinal: Present: soft. Absent: tenderness - Integumentary Integumentary: Absent: cellulitis - Labs CBC & Chem 7: 02/11/23 06:25 02/11/23 06:25 Labs: Abnormal Lab Results - Last 24 Hours (Table) 02/11/23 02/11/23 Range/Units 06:25 06:25 WBC 17.13 H (4.50-10.00) X 10*3/uL RBC 3.91 L (4.10-5.20) X 10*6/uL Hgb 11.8 L (12.0-15.0) d/dL MCHC 31.2 L (32.0-37.0) d/dL Carbon Dioxide 20.8 L (21.6-31.8) mmol/L BUN/Creatinine Ratio 27.50 H (12.00-20.00) Ratio Glucose 136 H (70-110) mg/dL Total Protein 5.5 L (6.2-8.2) d/dL Albumin 3.4 L (3.8-4.9) d/dL Assessment and Plan (1) Hip pain Current Visit: Yes Status: Acute Code(s): M25.559 - PAIN IN UNSPECIFIED HIP SNOMED Code(s): 00356749 (2) Inability to ambulate due to left hip Current Visit: Yes Status: Acute Code(s): R26.2 - DIFFICULTY IN WALKING, NOT ELSEWHERE CLASSIFIED SNOMED Code(s): 303850938 (3) Arthritis Current Visit: No Status: Acute Code(s): M19.90 - UNSPECIFIED OSTEOARTHRITIS, UNSPECIFIED SITE SNOMED Code(s): 4047433 (4) Atonic urinary bladder Current Visit: No Status: Acute Code(s): N31.2 - FLACCID NEUROPATHIC BLADD ER, NOT ELSEWHERE CLASSIFIED SNOMED Code(s): 287642847 (5) Back pain Current Visit: No Status: Acute Code(s): M54.9 - DORSALGIA, UNSPECIFIED SNOMED Code(s): 364870359 (6) Cervical stenosis of spinal canal Current Visit: No Status: Acute Code(s): M48.02 - SPINAL STENOSIS, CERVICAL REGION SNOMED Code(s): 79942698 (7) Depression Current Visit: No Status: Chronic Code(s): F32.9 - MAJOR DEPRESSIVE DISORDER, SINGLE EPISODE, UNSPECIFIED SNOMED Code(s): 93077814 Plan: Continue proper pain control. Much improvement after surgery. ECF/rehab for discharge. Continue appropriate pain control.
--- NOTE | 2023-02-12 08:57 | P.DS ---
Providers Date of admission: 02/05/23 10:48 Expected date of discharge: 02/12/23 Attending physician: Krystle Quinonez Consults: 02/03/23 14:21 Consult Physician Urgent Consulting Provider: Jaskaran Pressley Consult Reason/Comments: Intractable back pain, admitted to ortho Do you want consulting provider notified?: Yes 02/04/23 09:20 Consult Physician Urgent Consulting Provider: Kristen Moore Consult Reason/Comments: Interventional pain management for low back pain with radiculopathy Do you want consulting provider notified?: Yes Primary care physician: Jaskaran Pressley - Discharge Diagnosis(es) (1) Lumbar spinal stenosis due to adjacent segment disease after fusion procedure Current Visit: Yes Status: Acute (2) History of lumbar fusion Current Visit: Yes Status: Acute (3) Status post lumbar spinal fusion Current Visit: Yes Status: Acute (4) Difficulty in walking Current Visit: Yes Status: Acute (5) Lumbar back pain with radiculopathy affecting left lower extremity Current Visit: Yes Status: Acute (6) Atonic urinary bladder Current Visit: No Status: Acute (7) Colostomy in place Current Visit: No Status: Acute (8) Fibromyalgia Current Visit: No Status: Acute (9) GERD (gastroesophageal reflux disease) Current Visit: No Status: Acute Hospital Course: This is a pleasant 67-year-old female who presented with L2-3 severe spinal stenosis and adjacent level degenerative disc disease with debilitating left lower extremity radiculopathy and difficulty with ambulation due to left lower extremity pain who failed outpatient conservative therapy. She was admitted for further treatment evaluation if she is failing conservative treatment in outpatient setting. She underwent an L2-3 open decompression and fusion with extension to intact lumbar fusion hardware at L3-S1. She was progressing slowly initially postoperatively but has made improvement over the past couple days. She has been able to ambulate. She does continue to have some pain in her lumbar spine and over her left anterior lateral thigh but states her pain is better controlled than it was previously. She's been able to better control her pain with oral medications. She does not feel she will be able to manage independently at home. Currently, she has been improving or planning for discharge to [facility] rehabilitation facility today. Patient feels she is ready for discharge today. Condition on day of discharge stable. Patient was cleared preoperatively for surgery by Dr. Pressley. We did discuss patient will need clearance by medicine prior to discharge today. Patient currently denies any nausea, vomiting, fever, or chills. Patient is eating and voiding freely without difficulty. Patient does have a permanent bladder catheter and will ostomy. Surgical dressing has been removed over the lumbar spine. Patient may shower without a dressing intact at this time. Patient should refrain from driving until at least after their first follow-up appointment in the office. Patient should avoid excessive bending, lifting, and twisting; no lifting greater than 10 pounds. Patient may utilize walker to aid in ambulation as needed. MAPS has been reviewed today, 02/12/2023, with an Overall Overdose Risk Score of 240. An "Opiod Start Talking" Form has been signed and placed in the patient's chart. A prescription has been written for oxycodone 5 mg/325 mg, 1 tab, every 4 hours as needed for acute pain, dispense #42. She should avoid other narcotic medications while taking oxycodone. Prescriptions are also printed and signed for gabapentin 800 mg 3 times a day as needed for pain, dispense #21 and Robaxin 750 mg, 3 times a day as needed for muscle spasm, dispensed #90. Patient's other medical diagnoses include hypothyroidism, fibromyalgia, permanent bladder catheter, and colostomy. Physical Exam on day of discharge: Postoperative day #4 Patient is awake, alert, and oriented 3 Vital signs stable Good chest excursion with deep inspiration and expiration Patient currently resting comfortably in bed Dressing over the surgical site of the lumbar spine is clean, dry, and intact Surgical dressing is removed; no active drainage from the surgical site Mild bruising around the lumbar surgical site Dorsiflexion, plantarflexion, and extensor hallucis longus positive sustained bilaterally Patient is able to perform good active range of motion of the bilateral lower extremities independently without significant difficulty No signs or symptoms of DVT; no calf pain No pain with internal and external rotation of the hips bilaterally Bladder catheter intact with catheter bag attached Procedures: L2-3 open decompression and fusion with extension to intact lumbar fusion hardware at L3-S1 Patient Condition at Discharge: Stable Plan - Discharge Summary Discharge Rx Participant: Yes New Discharge Prescriptions: New Gabapentin 800 mg PO TID PRN 3 Days #21 tab PRN Reason: Pain methocarbamoL [Robaxin-750] 750 mg PO TID PRN #90 tab PRN Reason: Muscle Spasm oxyCODONE-APAP 5-325MG [Percocet 5-325 mg] 1 tab PO Q4HR PRN #42 tab PRN Reason: Pain No Action Gabapentin 800 mg PO TID@0200,1100,1800 Ibuprofen [Motrin] 800 mg PO TID@0200,1100,1800 Levothyroxine Sodium [Synthroid] 100 mcg PO DAILY@0200 buPROPion HCL [Wellbutrin XL] 300 mg PO DAILY@0200 Docusate [Colace] 100 mg PO TID@0200,1100,1800 Vitamin B Complex 1 cap PO DAILY@1100 Bimatoprost [Lumigan 0.01% Ophth Soln] 1 drop BOTH EYES HS@1800 Meclizine [Antivert] 25 mg PO BID@0200,1800 polyethylene glycoL 3350 [Miralax] 17 gm PO BID@1100,1800 Pantoprazole [Protonix] 40 mg PO DAILY@0200 Solifenacin Succinate [Vesicare] 10 mg PO DAILY@0200 Fluticasone Nasal Roff [Flonase Nasal Roff] 1 - 2 spr EA NOSTRIL DAILY Cholecalciferol [Vitamin D3 (25 Mcg = 1000 Iu)] 25 mcg PO DAILY@1100 Multivit-Min/Iron/Folic/Lutein [Centrum Silver Women Tablet] 1 tab PO DAILY@1100 Wheat Dextrin [Benefiber] 1 packet PO BID@1100,1800 oxyCODONE HCL [OxyIR] 5 mg PO TID@0200,1100,1800 Cranberry W/Vitamin C 2 cap PO DAILY@1100 Albuterol Inhaler [Ventolin Hfa Inhaler] 2 puff INHALATION RT-QID PRN PRN Reason: shortness of breath Lactulose 30 gm PO DAILY PRN PRN Reason: constipation methocarbamoL [Robaxin-750] 750 mg PO TID@0200,1100,1800 diphenhydrAMINE HCL [Benadryl] 25 mg PO HS Sennosides [Senokot] 8.6 mg PO TID@0200,1100,1800 Discharge Medication List Gabapentin 800 mg PO TID@0200,1100,1800 09/04/15 [History] Ibuprofen [Motrin] 800 mg PO TID@0200,1100,1800 06/30/16 [History] Levothyroxine Sodium [Synthroid] 100 mcg PO DAILY@0200 06/30/16 [History] buPROPion HCL [Wellbutrin XL] 300 mg PO DAILY@19902/04/17 [History] Docusate [Colace] 100 mg PO TID@0200,1100,179906/16/18 [History] Vitamin B Complex 1 cap PO DAILY@109901/23/19 [History] Bimatoprost [Lumigan 0.01% Ophth Soln] 1 drop BOTH EYES HS@179909/09/19 [History] Meclizine [Antivert] 25 mg PO BID@020,179901/01/20 [History] polyethylene glycoL 3350 [Miralax] 17 gm PO BID@1100,179902/11/21 [History] Pantoprazole [Protonix] 40 mg PO DAILY@19902/28/21 [History] Solifenacin Succinate [Vesicare] 10 mg PO DAILY@19903/19/22 [History] Albuterol Inhaler [Ventolin Hfa Inhaler] 2 puff INHALATION RT-QID PRN 09/17/22 [History] Fluticasone Nasal Roff [Flonase Nasal Roff] 1 - 2 spr EA NOSTRIL DAILY 09/17/22 [History] Lactulose 30 gm PO DAILY PRN 09/17/22 [History] methocarbamoL [Robaxin-750] 750 mg PO TID@0200,1100,179909/17/22 [History] Cholecalciferol [Vitamin D3 (25 Mcg = 1000 Iu)] 25 mcg PO DAILY@109902/03/23 [History] Cranberry W/Vitamin C 2 cap PO DAILY@109902/03/23 [History] Multivit-Min/Iron/Folic/Lutein [Centrum Silver Women Tablet] 1 tab PO DAILY@109902/03/23 [History] Sennosides [Senokot] 8.6 mg PO TID@0200,1100,179902/03/23 [History] Wheat Dextrin [Benefiber] 1 packet PO BID@1100,179902/03/23 [History] diphenhydrAMINE HCL [Benadryl] 25 mg PO HS 02/03/23 [History] oxyCODONE HCL [OxyIR] 5 mg PO TID@0200,1100,179902/03/23 [History] Gabapentin 800 mg PO TID PRN 3 Days #21 tab 02/12/23 [Rx] methocarbamoL [Robaxin-750] 750 mg PO TID PRN #90 tab 02/12/23 [Rx] oxyCODONE-APAP 5-325MG [Percocet 5-325 mg] 1 tab PO Q4HR PRN #42 tab 02/12/23 [Rx] Follow up Appointment(s)/Referral(s): Jaskaran Pressley MD [Primary Care Provider] - 1-2 days Benny Gómez PAC [PHYSICIAN QUANTITATIVE ANALYST DEVELOPER] - 2 Weeks (Patient may follow-up with Benny Gómez PA-C or Dr. Clifton Quinonez at [facility] in 2-3 weeks following discharge. ) Activity/Diet/Wound Care/Special Instructions: 1. Patient may shower without a dressing intact. 2. Patient may utilize walker or other walking device to aid in ambulation as needed 3. Patient should refrain from driving until at least after their first follow- up appointment in the office. 4. Patient should avoid excessive bending, twisting, lifting; avoid overhead lifting; no lifting greater than 10 pounds 5. Take medications as prescribed 6. Patient should avoid anti-inflammatory medications over the next 6 weeks postoperatively 7. Do not soak in tub Discharge Disposition: TRANSFER TO SNF/ECF
[2023-02-12] MEDS: ENOXAPARIN 40 MG/0.4 ML SYRINGE SQ SCH (09:26)
[2023-02-12] MEDS: FLUTICASONE 50MCG/SPRAY NASAL 16GM EA NOSTRIL SCH (09:27)
[2023-02-12] MEDS: methylPREDNISolone SOD SUCCI 125 MG/2 ML VIAL IV SCH (09:27)
[2023-02-12] MEDS: METHOCARBAMOL 750 MG PO SCH (09:28)
[2023-02-12] MEDS: SENNOSIDES-DOCUSATE SODIUM 1 EACH TAB PO SCH (09:28)
[2023-02-12] MEDS: SENNOSIDES 25 MG PO SCH (09:28)
[2023-02-12] MEDS: FOLIC ACID-VIT B COMPLEX-VIT C 1 CAP PO SCH (09:30)
[2023-02-12] MEDS: CHOLECALCIFEROL 25 MCG (1000 IU) TABLET PO SCH (09:31)
[2023-02-12] MEDS: polyethylene glycoL 3350 17 GM POWD.PACK PO SCH (09:32)
[2023-02-12] MEDS: MULTIVITAMINS, THERA 1 EACH TAB PO SCH (09:34)
[2023-02-12 13:14] VITALS: BP 153/74; PULSE 89; TEMP 98
[2023-02-12 14:03] VITALS: BMI 33.6
== END 2023-02-12 14:35 | DRG 455 ==
LOC: EC 11:23 → 6NMEDSUR 15:43 → OBSVTOIN 02-05 10:48 → 5NMEDONC 02-08 15:03
PROVIDERS: ADMIT Orthopaedic Surgery Orthopaedic Surgery of the Spine; ATTEND Orthopaedic Surgery Orthopaedic Surgery of the Spine
PROC: 0SG1071 Fusion of 2 or more Lumbar Vertebral Joints with Autologous Tissue Substitute, Posterior Approach, Posterior Column, Open Approach (ICD-10-PCS; 2023-02-08)
PROC: 01NB0ZZ Release Lumbar Nerve, Open Approach (ICD-10-PCS; 2023-02-08)
PROC: 0SJ00ZZ Inspection of Lumbar Vertebral Joint, Open Approach (ICD-10-PCS; 2023-02-08)
PROC: 0SJ30ZZ Inspection of Lumbosacral Joint, Open Approach (ICD-10-PCS; 2023-02-08)
PROC: 07DS3ZX Extraction of Vertebral Bone Marrow, Percutaneous Approach, Diagnostic (ICD-10-PCS; 2023-02-08)
PROC: 8E0WXBG Computer Assisted Procedure of Trunk Region, With Computerized Tomography (ICD-10-PCS; 2023-02-08)
PROC: 0SG10AJ Fusion of 2 or more Lumbar Vertebral Joints with Interbody Fusion Device, Posterior Approach, Anterior Column, Open Approach (ICD-10-PCS; principal; 2023-02-08 07:30)
DX: M48.061 Spinal stenosis, lumbar region without neurogenic claudication (principal); N31.2 Flaccid neuropathic bladder, not elsewhere classified; E03.9 Hypothyroidism, unspecified; F32.9 Major depressive disorder, single episode, unspecified; M47.26 Other spondylosis with radiculopathy, lumbar region; M79.7 Fibromyalgia; M50.30 Other cervical disc degeneration, unspecified cervical region; M51.16 Intervertebral disc disorders with radiculopathy, lumbar region; M51.34 Other intervertebral disc degeneration, thoracic region; G62.9 Polyneuropathy, unspecified; G89.4 Chronic pain syndrome; R41.3 Other amnesia; K21.9 Gastro-esophageal reflux disease without esophagitis; M48.02 Spinal stenosis, cervical region; R26.2 Difficulty in walking, not elsewhere classified; Z96.0 Presence of urogenital implants; Z96.659 Presence of unspecified artificial knee joint; Z96.642 Presence of left artificial hip joint; Z93.3 Colostomy status; Z98.1 Arthrodesis status; Z79.890 Hormone replacement therapy; Z79.899 Other long term (current) drug therapy; Z91.048 Other nonmedicinal substance allergy status; Z88.8 Allergy status to other drugs, medicaments and biological substances; Z91.040 Latex allergy status; Z88.1 Allergy status to other antibiotic agents; Z88.5 Allergy status to narcotic agent
CPT/HCPCS: 72100; 72131; 72170; 80048; 80053; 85025; 85027; 86850; 86900; 86901; 94760; 96374; 96375; 96376; 99285

== ENCOUNTER → 2023-09-14 | Outpatient (CLI) | payer MEDICARE, OTHER ==
[2023-09-14 16:36] LABS: ALT 37 U/L (8-44); AST 35 U/L (13-35); Albumin 3.9 g/dL (3.8-4.9); Alkaline Phosphatase 141 U/L (41-126); BUN/Creat Ratio 19.75 Ratio (12.00-20.00); Blood Urea Nitrogen 15.8 mg/dL (9.0-27.0); Calcium 9.5 mg/dL (8.7-10.3); Chloride 105 mmol/L (96-109); Globulin 2.3 g/dL (1.6-3.3); Glucose 102 mg/dL (70-110); Sodium 141 mmol/L (135-145); Total Bilirubin 0.3 mg/dL (0.3-1.2); Total Protein 6.2 g/dL (6.2-8.2)
[2023-09-14 16:42] LABS: Basophils # (A) 0.04 X 10*3/uL (0.00-0.10); Basophils % (A) 0.4 %; Eosinophils # (A) 0.49 X 10*3/uL (0.04-0.35); Eosinophils % (A) 4.5 %; HCT 40.2 % (37.2-46.3); HGB 12.8 g/dL (12.0-15.0); Lymphocytes % (A) 17.3 %; MCH 29.8 pg (27.0-32.0); MCHC 31.8 g/dL (32.0-37.0); MCV 93.7 FL (80.0-97.0); Mean Platelet Volume 10.7 FL (9.5-12.2); Monocytes # (A) 0.88 X 10*3/uL (0.20-1.00); NRBC Per 100 WBC 0 X 10*3/uL (0.00-0.01); Neutrophils # (A) 7.44 X 10*3/uL (1.80-7.70); Neutrophils % (A) 67.7 %; Platelet Count 252 X 10*3/uL (140-440); RBC 4.29 X 10*6/uL (4.10-5.20); RDW 15.4 % (11.5-14.5); WBC 10.98 X 10*3/uL (4.50-10.00)
== END | disposition home or self-care (01) ==
LOC: LABWHC1 12:13
PROVIDERS: ATTEND Family Medicine
DX: R07.89 Other chest pain (principal)
CPT/HCPCS: 36415; 80053; 84484; 85025

== ENCOUNTER → 2023-10-29 | Outpatient (CLI) | payer MEDICARE, OTHER ==
--- NOTE | 2023-10-30 07:33 | US ---
EXAMINATION TYPE: US kidneys/renal and bladder DATE OF EXAM: 10/29/2023 COMPARISON: NONE CLINICAL INDICATION: Female, 68 years old with history of R30.10 INTERSTITIAL CYSTITIS (CHRONIC) WITH OUT HEM; Bladder perforation during hip replacement; Bladder no longer able to hold any urine EXAM MEASUREMENTS: Right Kidney: 11.0 x 4.9 x 5.2 cm Left Kidney: 9.6 x 7.1 x 4.9 cm Post Void Residual Volume: NA mL Right Kidney: wnl Left Kidney: wnl Bladder: Not distended; Malin noted within Bilateral Jets seen: Not able to assess Normal Post Void Residual: NA There is no evidence for hydronephrosis at this point in time. No nephrolithiasis is seen. No juliet s are identified. IMPRESSION: 1. No solid renal mass or renal calcification or hydronephrosis. 2. Urinary bladder not evaluated due to nondistention. Malin catheter within the urinary bladder.
== END | disposition home or self-care (01) ==
LOC: RADUSWWP 14:59
PROVIDERS: ATTEND Urology
DX: N30.10 Interstitial cystitis (chronic) without hematuria (principal)
CPT/HCPCS: 76770

== ENCOUNTER 2023-12-20 17:09 | Emergency (ER) | payer MEDICARE, OTHER ==
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
[2023-12-20] MEDS: HYDROmorphone 0.5 MG/0.5 ML SYRINGE IVP STA ×2 (17:27→18:29)
--- NOTE | 2023-12-20 18:13 | CT ---
EXAMINATION TYPE: CT brain wo con CT DLP: 1137.4 mGycm, Automated exposure control for dose reduction was used. DATE OF EXAM: 12/20/2023 5:57 PM COMPARISON: 09/09/2021. CLINICAL INDICATION:Female, 68 years old with history of fall, brief LOC, fall TECHNIQUE: Brain: Axial CT images of the brain were obtained with coronal and sagittal reformats created and rev iewed. Contrast used: None. Oral contrast used: None. FINDINGS: Brain: Extra-axial spaces: No abnormal extra-axial fluid collections. Ventricular system: Within normal limits Cerebral parenchyma: No acute intraparenchymal hemorrhage or mass effect. The casanova-white junction is well differentiated. Cerebellum: Unremarkable. Mass effect: No evidence of midline shift. Intracranial vasculature: Atherosclerotic calcifications of the intracranial vessels. Soft tissues: Normal. Calvarium/osseous structures: No depressed skull fracture. Paranasal sinuses and mastoid air cells: Mild scattered paranasal sinus disease. Visualized orbits: Bilateral aphakia IMPRESSION: No acute intracranial process.
--- NOTE | 2023-12-20 18:18 | XR ---
EXAMINATION TYPE: XR pelvis AP view DATE OF EXAM: 12/20/2023 6:04 PM CLINICAL INDICATION:Female, 68 years old with history of fall, pain, injury; COMPARISON: 02/03/2023 TECHNIQUE: The pelvis was examined in a single projection. FINDINGS: There is no evidence of fracture or dislocation. There is no soft tissue abnormality. No a bnormal calcifications are present. The spine appears intact. The the right hip is intact. Osteophyte formation of the superior acetabulum bilaterally with mild joint space narrowing. Left hip arthropla sty fixation hardware is present and appear intact. IMPRESSION: * No acute osseous pathology. * Post fixation changes spine and left hip arthroplasty appears intact.
[2023-12-20 18:20] VITALS: BP 136/66; PULSE 67; RESP 18; TEMP 98.1
--- NOTE | 2023-12-20 18:20 | XR ---
EXAMINATION TYPE: XR thoracic spine 2V DATE OF EXAM: 12/20/2023 6:04 PM CLINICAL INDICATION:Female, 68 years old with history of fall, pain, hx reconstructive surgery; [facility] COMPARISON: None TECHNIQUE: XR thoracic spine 2V views of the spine in Frontal and lateral projections. FINDINGS: No evidence of acute fracture. There is scattered multilevel disk space narrowing without loss of ve rtebral body height. There is normal alignment of the thoracic vertebral bodies. Scattered osteophyte formation along the anterior and lateral aspects of the vertebral bodies. Neural foramen are patent given limitations of this exam. Spinal canal appears patent. Fixation hardware in the cervical spine appears intact. Fixation hardware in the lower lumbar spine also appears intact. IMPRESSION: 1. No acute osseous pathology. 2. [id number] multilevel degeneration changes of the spine.
--- NOTE | 2023-12-20 18:23 | XR ---
EXAMINATION TYPE: XR lumbar spine 2 or 3V DATE OF EXAM: 12/20/2023 6:04 PM CLINICAL INDICATION:Female, 68 years old with history of fall, pain, hx reconstructive surgery; [facility] COMPARISON: None TECHNIQUE: XR lumbar spine 2 or 3V - Frontal, lateral and coned in L5-S1 lateral views of the spine. FINDINGS: No evidence of any acute osseous pathology. No evidence of loss of vertebral body height i s seen. There is normal alignment of the lumbar vertebral bodies. Post surgical changes to the spine with fixation hardware at L2-S1. Hardware appears intact. Moderate multilevel degeneration changes wi th joint space narrowing osteophyte formation disc and facet joint arthropathy. Hip arthroplasty wesley ges appear intact. IMPRESSION: 1. Fixation hardware to the spine with hardware intact. No acute fracture. 2. Moderate multilevel disc degeneration.
== END 2023-12-20 19:03 | disposition home or self-care (01) ==
LOC: EC 17:09
DX: S09.90XA Unspecified injury of head, initial encounter (principal); M54.9 Dorsalgia, unspecified; Z91.09 Other allergy status, other than to drugs and biological substances; Z91.040 Latex allergy status; Z88.6 Allergy status to analgesic agent; Z88.8 Allergy status to other drugs, medicaments and biological substances; W18.30XA Fall on same level, unspecified, initial encounter; Y92.000 Kitchen of unspecified non-institutional (private) residence as the place of occurrence of the external cause
CPT/HCPCS: 72070; 72100; 72170; 70450; 99284; 96374; 96376; J1170

== ENCOUNTER 2023-12-30 01:11 | Inpatient (IN) | payer MEDICARE, OTHER ==
[2023-12-30] MEDS: SODIUM CHLORIDE 0.9% 1,000 ML IV STA (01:49)
[2023-12-30] MEDS: HYDROmorphone 0.5 MG/0.5 ML SYRINGE IVP STA (01:50)
[2023-12-30 02:06] LABS: Basophils # (A) 0.1 k/uL (0-0.2); Basophils % (A) 0 %; Eosinophils # (A) 0.1 k/uL (0-0.7); Eosinophils % (A) 1 %; HCT 39.9 % (34.0-46.0); HGB 12.5 gm/dL (11.4-16.0); Lymphocytes # (A) 3.7 k/uL (1.0-4.8); Lymphocytes % (A) 25 %; MCH 29.6 pg (25.0-35.0); MCHC 31.4 g/dL (31.0-37.0); MCV 94.4 fL (80.0-100.0); Mean Platelet Volume 8.3; Monocytes % (A) 7 %; Neutrophils # (A) 9.9 k/uL (1.3-7.7); Neutrophils % (A) 66 %; Platelet Count 281 k/uL (150-450); RBC 4.23 m/uL (3.80-5.40); RDW 14.4 % (11.5-15.5)
[2023-12-30 02:24] LABS: ALT 25 U/L (4-34); AST 26 U/L (14-36); African American GFR (CKD) 87 (>60 ml/min/1.73 sqM); Albumin 3.9 g/dL (3.5-5.0); Alkaline Phosphatase 139 U/L (38-126); Anion Gap 10 mmol/L; Blood Urea Nitrogen 13 mg/dL (7-17); Calcium 10.2 mg/dL (8.4-10.2); Carbon Dioxide 21 mmol/L (22-30); Chloride 107 mmol/L (98-107); Glucose 130 mg/dL (74-99); Non-African American GFR(CKD) 75 (>60 ml/min/1.73 sqM); Potassium 3.9 mmol/L (3.5-5.1); Sodium 138 mmol/L (137-145); Total Bilirubin 0.4 mg/dL (0.2-1.3); Total Protein 6.4 g/dL (6.3-8.2)
[2023-12-30] MEDS: HYDROmorphone 1 MG/ML 1 ML SYRINGE IVP STA (02:57)
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
--- NOTE | 2023-12-30 04:19 | CT ---
EXAM: CT Thoracic Spine Without Intravenous Contrast CLINICAL HISTORY: ITS.REASON CT Reason: pain TECHNIQUE: Axial computed tomography images of the thoracic spine without intravenous contrast. CTDI is 33 mGy and DLP is 2056 mGy-cm. This CT exam was performed using one or more of the following dose reduction techniques: automated exposure control, adjustment of the mA and/or kV according to patient size, and/or use of iterative reconstruction technique. COMPARISON: No relevant prior studies available. FINDINGS: Vertebrae: No acute fracture. No sagittal subluxation. Discs/spinal canal/neural foramina: No spinal canal stenosis. Soft tissues: Unremarkable. IMPRESSION: No acute findings. EXAM: CT Lumbar Spine Without Intravenous Contrast CLINICAL HISTORY: ITS.REASON CT Reason: pain TECHNIQUE: Axial computed tomography images of the lumbar spine without intravenous contrast. CTDI is 14.9 mGy and DLP is 812.4 mGy-cm. This CT exam was performed using one or more of the following dose reduction techniques: automated exposure control, adjustment of the mA and/or kV according to patient size, and/or use of iterative reconstruction technique. COMPARISON: No relevant prior studies available. FINDINGS: Postop changes related to L2-S1 posterior fusion. Vertebrae: Acute superior endplate horizontal fracture through L1 without significant height loss. Minimal retropulsion. Discs/spinal canal/neural foramina: degenerative changes.. Soft tissues: Unremarkable. IMPRESSION: Acute superior endplate horizontal fracture through L1 without significant height loss. Minimal retropulsion.
--- NOTE | 2023-12-30 05:01 | CT ---
EXAMINATION TYPE: CT abdomen pelvis wo con DATE OF EXAM: 12/30/2023 HISTORY: Brought in by EMS for back, hip, and side pain and that started after a fall last week CT DLP: 812.4 mGycm. Automated Exposure Control for Dose Reduction was Utilized. TECHNIQUE: CT scan of the abdomen and pelvis is performed without oral or IV contrast. COMPARISON: Prior CT February 11, 2021 FINDINGS: Within the limitations of a non-contrast study, the following observations are made. LUNG BASES: Bilateral breast implants are partially imaged similar to prior. A 3 mm calcified nodule or benign granuloma right lung base axial image 10 is redemonstrated. LIVER/GB: No significant abnormality is appreciated. PANCREAS: No significant abnormality is seen. SPLEEN: A few calcifications throughout the spleen are redemonstrated. ADRENALS: No significant abnormality is seen. KIDNEYS: No renal stones or hydronephrosis seen bilaterally. Suprapubic Malin catheter redemonstrated . BOWEL: No abnormal small or large bowel dilatation. Moderate fecal prominence in the low lying cecum on current study. Left-sided colostomy redemonstrated. GENITAL ORGANS: Uterus is surgically absent similar to prior. LYMPH NODES: No greater than 1cm abdominal or pelvic lymph nodes are appreciated. OSSEOUS STRUCTURES: Postsurgical changes now present L2-S1 levels. There is horizontal lucency throug h the superior aspect of the L1 vertebra sagittal image 57 and coronal image 75 for reference. No sig nificant height loss. No posterior osseous retropulsion. Asymmetric left iliopsoas muscular atrophy r edemonstrated. OTHER: No significant additional abnormality is seen. IMPRESSION: 1. Linear lucency consistent with acute or subacute fracture deformity involving the L1 vertebra. Cor relate clinically. 2. Left-sided colostomy redemonstrated. Moderate proximal colonic fecal stasis or constipation. No liz wel obstruction.
[2023-12-30] MEDS ORDERED: NALOXONE 0.4 MG/ML 1 ML VIAL IV PRN (05:09)
[2023-12-30] MEDS: DEXAMETHASONE SOD PHOSPHATE 4 MG/ML 1 ML VIAL IVP SCH (05:45)
[2023-12-30] MEDS: HYDROmorphone 0.5 MG/0.5 ML SYRINGE IVP PRN (05:45)
[2023-12-30 06:58] LABS: Amorphous Sediment,Urine Rare /hpf; Appearance,Urine Cloudy (Clear); Bacteria,Urine Moderate /hpf; Bilirubin,Urine Negative (Negative); Blood,Urine Trace (Negative); Calcium Oxalate Crystals,Urine Occasional /hpf; Color,Urine Yellow; Glucose,Urine (UA) Negative (Negative); Hyaline Casts,Urine 4 /lpf (0-2); Ketones,Urine Negative (Negative); Leukocyte Esterase,Urine Large (Negative); Mucus,Urine Occasional /hpf; Nitrite,Urine Negative (Negative); Protein,Urine Negative (Negative); RBC,Urine 7 /hpf (0-5); Specific Gravity,Urine 1.014 (1.001-1.035); Squamous Epithelial Cell,Urine 1 /hpf (0-4); Urobilinogen,Urine <2.0 mg/dL (<2.0); WBC,Urine 88 /hpf (0-5)
[2023-12-30] MEDS ORDERED: LACTULOSE 20 GM/30 ML CUP PO PRN (09:19)
[2023-12-30] MEDS ORDERED: ALBUTEROL NEBULIZED 2.5 MG/3 ML INHALATION PRN (09:19)
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
[2023-12-30] MEDS: GABAPENTIN 400 MG CAP PO SCH (15:25)
[2023-12-30] MEDS: DOCUSATE 100 MG CAP PO SCH (15:25)
[2023-12-30] MEDS: SENNOSIDES 8.6 MG TAB PO SCH (15:27)
[2023-12-30] MEDS: FAMOTIDINE 20 MG TAB PO SCH (21:16)
[2023-12-30] MEDS: polyethylene glycoL 3350 17 GM POWD.PACK PO SCH (21:17)
[2023-12-30] MEDS: MECLIZINE 25 MG TAB PO SCH (21:17)
[2023-12-31] MEDS: LATANOPROST 0.005% OPHTH DROPS 2.5 ML BTL BOTH EYES SCH (00:32)
[2023-12-31] MEDS: buPROPion XL 300 MG TAB.ER.24H PO SCH (03:09)
[2023-12-31] MEDS: methocarbamoL 750 MG TAB PO PRN (04:24)
[2023-12-31 05:49] LABS: Basophils % (A) 0 %; Eosinophils # (A) 0.1 k/uL (0-0.7); Eosinophils % (A) 1 %; HCT 42.5 % (34.0-46.0); HGB 13.1 gm/dL (11.4-16.0); Hypochromasia Slight; Lymphocytes # (A) 1.3 k/uL (1.0-4.8); Lymphocytes % (A) 10 %; MCH 30.4 pg (25.0-35.0); MCHC 30.8 g/dL (31.0-37.0); MCV 98.7 fL (80.0-100.0); Mean Platelet Volume 9.4; Monocytes # (A) 0.4 k/uL (0-1.0); Monocytes % (A) 3 %; Neutrophils # (A) 11.2 k/uL (1.3-7.7); Neutrophils % (A) 86 %; Platelet Count 243 k/uL (150-450); RBC 4.31 m/uL (3.80-5.40); RDW 14.1 % (11.5-15.5)
[2023-12-31] MEDS: LEVOTHYROXINE 100 MCG TAB PO SCH (05:55)
--- NOTE | 2023-12-31 08:16 | P.PN ---
Subjective Progress Note Date: 12/31/23 Principal diagnosis: The patient is seen now for L1 compression fracture. Orthopedic repair scheduled for this morning. Pain is complained of today. No significant voiding difficulties. She is laying somewhat uncomfortably. Objective - Vital Signs Vital signs: Vital Signs Temp 97.7 F 12/31/23 01:15 Pulse 73 12/31/23 01:15 Resp 20 12/31/23 01:15 BP 123/72 12/31/23 01:15 Pulse Ox 95 12/31/23 01:15 FiO2 Intake & Output 12/30/23 12/31/23 12/31/23 18:59 06:59 18:59 Output Total 1400 Balance -1400 Weight 81.647 kg Output: Urine 1400 Other: Voiding Method Bedpan - Constitutional General appearance: Present: average body habitus, cooperative, no acute distress - EENT Eyes: Absent: abnormal pupil - Respiratory Respiratory: bilateral: diminished - Cardiovascular Rhythm: regular Heart sounds: normal: S1, S2 Abnormal Heart Sounds: Absent: S3 Gallop - Gastrointestinal General gastrointestinal: Present: soft. Absent: tenderness - Psychiatric Psychiatric: Present: A&O x's 3, appropriate affect - Labs CBC & Chem 7: 12/31/23 04:54 12/30/23 01:16 Labs: Abnormal Lab Results - Last 24 Hours (Table) 12/31/23 Range/Units 04:54 WBC 13.0 H (3.8-10.6) k/uL MCHC 30.8 L (31.0-37.0) g/dL Neutrophils # 11.2 H (1.3-7.7) k/uL Assessment and Plan (1) Compression fracture of L1 lumbar vertebra Current Visit: Yes Status: Acute Code(s): S32.010A - WEDGE COMPRESSION FRACTURE OF FIRST LUMBAR VERTEBRA, INIT SNOMED Code(s): 002246161 (2) Atonic urinary bladder Current Visit: No Status: Acute Code(s): N31.2 - FLACCID NEUROPATHIC BLADDER, NOT ELSEWHERE CLASSIFIED SNOMED Code(s): 842854327 (3) Fibromyalgia Current Visit: No Status: Acute Code(s): M79.7 - FIBROMYALGIA SNOMED Code(s): 899063736 (4) GERD (gastroesophageal reflux disease) Current Visit: No Status: Acute Code(s): K21.9 - GASTRO-ESOPHAGEAL REFLUX DISEASE WITHOUT ESOPHAGITIS SNOMED Code(s): 145645485 (5) History of degenerative disc disease Current Visit: No Status: Acute Code(s): Z87.39 - PERSONAL HISTORY OF DISEASES OF THE MS SYS AND CONN TISS SNOMED Code(s): 382972703 (6) History of lumbar fusion Current Visit: No Status: Acute Code(s): Z98.1 - ARTHRODESIS STATUS SNOMED Code(s): 33551692020660 (7) Upper extremity weakness Current Visit: No Status: Acute Code(s): R29.898 - OTH SYMPTOMS AND SIGNS INVOLVING THE MUSCULOSKELETAL SYSTEM SNOMED Code(s): 166177935 Plan: Appreciate orthopedic input. Will continue to follow. Anticipate transfer to rehab once stabilized. Check CBC and CMP in a.m.
[2023-12-31 08:45] LABS: ALT 25 U/L (8-44); AST 20 U/L (13-35); Albumin 4.1 g/dL (3.8-4.9); Albumin/Globulin Ratio 1.78 Ratio (1.60-3.17); Alkaline Phosphatase 162 U/L (41-126); BUN/Creat Ratio 26.43 Ratio (12.00-20.00); Blood Urea Nitrogen 18.5 mg/dL (9.0-27.0); Calcium 9.8 mg/dL (8.7-10.3); Carbon Dioxide 20.9 mmol/L (21.6-31.8); Chloride 104 mmol/L (96-109); Globulin 2.3 g/dL (1.6-3.3); Glucose 150 mg/dL (70-110); Potassium 4.6 mmol/L (3.5-5.5); Sodium 139 mmol/L (135-145); Total Bilirubin <0.2 mg/dL (0.3-1.2); Total Protein 6.4 g/dL (6.2-8.2)
--- NOTE | 2023-12-31 08:54 | P.PN ---
Progress Note - Text Progress Note Date: 12/31/23 Orthopedic spine: History of present illness: Patient is a very pleasant 68-year-old female who is well-known to our service who is seen and examined at bedside for follow-up evaluation of her lumbar spine. She is known to have sustained a fall on 12/20/2023 when she fell backwards after reaching for a bottle of ketchup. She presented to [facility] for further evaluation. No fractures were found at that time. She was discharged from the ER. She was seen and evaluated in our office for further evaluation. She is continue to have ongoing lower lumbar pain. There is no obvious fracture on x-ray imaging. After difficulty with pain control and mobilization, she presented back to the emergency department for further evaluation at which time CT imaging was performed. CT imaging did show evidence of L1 compression fracture deformity without significant height loss. She was admitted to medicine for further evaluation with us orthopedic spine on consultation. She is known to have a previous fusion with retained hardware L3- S1 with following fusion at L2-3 with attachment to her previous retained hardware. She is also known to have colostomy along with bladder catheter. It was previously discussed about bracing and she would have difficulty with bracing due to her colostomy and suprapubic bladder catheter. Patient is currently scheduled for L1 kyphoplasty with biopsy to be performed today, 01/01/2024. She is currently n.p.o. in anticipation for surgical intervention. She has been seen and examined by medicine. She is cleared for surgical intervention. Patient states medicine is currently planning to have the patient admitted over the weekend with plans for discharge to a rehabilitation facility this coming 01/03/2024. Patient states she does continue to have significant back pain. Her lower extremities are adequately controlled. She is currently lying in bed. She is able to lie on her side somewhat comfortably. She feels she is ready for surgical intervention. Physical exam: Patient is awake, alert, and oriented 3 Vital signs stable Good chest excursion with deep inspiration and expiration Abdomen soft nontender Examination of lumbar spine reveals skin is intact with no abrasions, lacerations, or bruises; no erythema, purulence or signs of infection Dorsiflexion, plantarflexion, and extensor hallucis longus positive sustained bilaterally Lower extremity strength 5/5 bilaterally Patellar reflex 2+ bilaterally and Achilles reflexes 2+ bilaterally No lower extremity hyperreflexia bilaterally Straight leg test negative bilateral lower extremities Negative Lasegue's test bilaterally No signs or symptoms of DVT; no calf pain No pain with internal and external rotation of the hips bilaterally Neurovascularly intact Pertinent studies: CT of the lumbar spine taken on 12/30/2023: L1 superior endplate compression fracture; L2-S1 retained hardware without evidence of hardware fracture, loosening, or fatigue Assessment: Status post fall on 12/20/2023 Acute lumbar pain Inability to ambulate History L2-3 lumbar fusion with hardware extension to intact hardware at L3-S1 Suprapubic bladder catheter Colostomy Fibromyalgia Thyroid disorder Obesity Plan: 1. Patient has an L1 superior endplate compression fracture deformity. She has previous fusion at L2-S1 with retained hardware. Patient h has been having significant difficulty with her mobilization and ambulation status post fall in 12/20/2023. She presented to the emergency department multiple times as well as our office for further evaluation. Given her significant difficulty with mobilization and lack of improvement with conservative care, we are currently plan to proceed forward with surgical intervention at her lumbar spine. She is currently NPO status in anticipation for surgical intervention today. Patient feels she is ready to proceed forward with surgical intervention. The surgical intervention today is an L1 kyphoplasty with biopsy. 2. She will remain in bed until following surgical intervention. She is unable to proceed for the bracing due to suprapubic bladder catheter and colostomy bag. 3. She will continue to be seen examined by medicine for her other medical diagnoses. She is admitted to medicine. They are currently planning for discharge to rehabilitation facility as early as this coming 01/03/2024.
[2023-12-31] MEDS: CHOLECALCIFEROL 125 MCG (5000 IU) TABLET PO SCH (09:31)
[2023-12-31] MEDS: OXYBUTYNIN 10 MG TAB.ER.24 PO SCH (09:34)
[2023-12-31] MEDS: PANTOPRAZOLE 40 MG TABLET PO SCH (09:34)
[2023-12-31] MEDS: MULTIVITAMINS, THERA 1 EACH TAB PO SCH (09:34)
[2023-12-31] MEDS: FLUTICASONE NASAL 50MCG/SPRAY 16GM BTL EA NOSTRIL SCH (11:26)
[2023-12-31] MEDS: LACTATED RINGERS 1,000 ML BAG IV STA (15:32)
[2023-12-31] MEDS: IV FLUID CONTINUATION 1,000 ML IV ONE (15:32)
[2023-12-31] MEDS: ONDANSETRON 4 MG/2 ML VIAL IM STA (15:33)
[2023-12-31] MEDS: fentaNYL (PF) 50 MCG/ML 2 ML AMP IVP ONE (15:40)
[2023-12-31] MEDS: FAMOTIDINE 20 MG/2 ML VIAL IV STA (15:40)
[2023-12-31] MEDS: MIDAZOLAM 2 MG/2 ML VIAL IV ONE (16:14)
[2023-12-31] MEDS ORDERED: PROPOFOL 10 MG/ML 20 ML VIAL IV ONE (16:39)
[2023-12-31] MEDS ORDERED: LIDOCAINE 1% INJ 10MG/ML (20 ML MDV) ONE (16:39)
[2023-12-31] MEDS ORDERED: ceFAZolin 1 GM/50 ML BAG (PMX) ONE (16:39)
[2023-12-31] MEDS ORDERED: SUCCINYLCHOLINE CHLORIDE 200 MG/10 ML VIAL IV ONE (16:39)
[2023-12-31] MEDS ORDERED: MIDAZOLAM 2 MG/2 ML VIAL ONE (16:39)
[2023-12-31] MEDS ORDERED: KETAMINE HCL IN 0.9 % NACL 50 MG/5 ML SYRINGE ONE (16:39)
[2023-12-31] MEDS: SODIUM CHLORIDE 0.9% 50 ML with ceFAZolin 2,000 MG IV ONE (16:44)
[2023-12-31] MEDS: BUPIVACAINE (PF) 0.5% 30 ML VIAL SQ ONE ×2 (16:47→17:12)
[2023-12-31] MEDS: IOPAMIDOL M200 10 ML VIAL MISCELLANE ONE ×3 (16:48→17:14)
[2023-12-31] MEDS ORDERED: MAGNESIUM HYDROXIDE 2,400 MG/30 ML CUP PO PRN (17:40)
[2023-12-31] MEDS ORDERED: HYDROmorphone 1 MG/ML 1 ML SYRINGE IVP PRN (17:40)
[2023-12-31] MEDS ORDERED: SENNOSIDES-DOCUSATE SODIUM 1 EACH TAB PO PRN (17:40)
[2023-12-31] MEDS ORDERED: HYDROmorphone 0.5 MG/0.5 ML SYRINGE IVP PRN (17:40)
[2023-12-31] MEDS ORDERED: ONDANSETRON 4 MG/2 ML VIAL IVP PRN (17:40)
[2023-12-31] MEDS ORDERED: BENZOCAINE/MENTHOL LOZENG 1 EACH LOZENGE MUCOUS MEM PRN (17:40)
[2023-12-31] MEDS ORDERED: HYDROcodone/APAP 10-325MG 1 EACH TAB PO PRN (17:40)
[2023-12-31] MEDS ORDERED: diazePAM 5 MG TAB PO PRN (17:40)
--- NOTE | 2023-12-31 17:50 | P.OP ---
Date of Procedure: 12/31/23 Preoperative Diagnosis: Traumatic L1 compression fracture status post fall at home, back pain, history of prior lumbar fusion L2-S1, history of ankylosis, intolerable low back pain Postoperative Diagnosis: Same Anesthesia: GETA Pathology: other (L1 vertebral body to pathology) Condition: stable Disposition: PACU Description of Procedure: BRIEF OPERATIVE NOTE Preoperative Diagnosis: Traumatic L1 compression fracture status post fall at home, back pain, history of prior lumbar fusion L2-S1, history of ankylosis, intolerable low back pain Postoperative Diagnosis: Same Procedure: Kyphoplasty of L1 Vertebral body biopsy of L1 Use of biplanar fluoroscopic guidance Surgeon: Dr. Quinonez Process Safety Management Engineer: Benny FERRER who is present throughout the entire the case persistence during positioning, dissection, exposure, visualization, and all crucial elements of the case as well as closure. Anesthesia: General anesthesia per Dr. Jaramillo Estimated blood loss: Less than 10 mL Specimen: Vertebral body biopsy of L1 sent to pathology in formalin Complications: None apparent Components implanted: Bone cement approximately 7 and half cc Disposition: To recovery room in good stable condition. OPERATIVE INDICATIONS The patient has been having severe issues in their back ever since sustaining an injury a few days ago. The patient has a long history of spinal issues including her cervical spine and her lumbar spine she has had a number of surgeries at her lumbar spine with prior decompression and fusion L2-S1. That has been stable for her and she has been able to mobilize and has been improving steadily until the other day when she was at home reaching onto her top shelf and fell backwards onto her back. She had a significant fall where she hit her head and lost consciousness and had acute new low back pain. She was seen and evaluated and the fracture was maintaining its stability but she was having worsening symptoms and presented to the emergency room where CT scan showed evidence of the fracture line across the superior endplate of L1. She is known to have prior fusion in her lumbar spine with some ankylosis at her thoracic spine. The patient has a number of issues including a colostomy and a suprapubic catheter and is unable to use a brace. She was having uncontrollable pain due to the fracture. We attempted some conservative management however this was not bearable for her and we discussed the possibly of surgical intervention. We discussed the possibility of reconstruction with stabilization above and below her fracture versus the possibility of kyphoplasty. I discussed with her the many issues involved in her overall care including the ankylosis above her fracture and the fusion below her fracture. I discussed the stability of doing reconstruction and hardware above and below her fracture however she was adamantly against this. I also discussed with her the possibility of cement kyphoplasty to see if this would give her some stability at the fracture site and allow appropriate healing and stability. She like to proceed with surgical intervention in the form of kyphoplasty at L1. She understood the risks involved and the possible need for further surgery and further stabilization. They continue to have significant pain and debility due to their fracture. We discussed various treatment options including surgery, and the patient wishes to proceed with surgery We discussed the risk, patient's alternatives and benefits of surgery including but not limited to, risk of bleeding risk of infection, risk of need for further surgery, risk of decreased, loss of motion, loss of function, cement extravasation, nerve damage, paralysis, heart attack, blindness and . OPERATIVE SUMMARY After discussing all the risks, patient alternatives and benefits at length, the patient elected to proceed with surgical intervention, signed informed consent, and presented for their procedure. The patient was seen and examined in the preoperative holding area and the surgical site was marked. The patient was given antibiotics and brought to the operating room. The patient was sedated and intubated by anesthesia in standard fashion. The patient was positioned on to the operating room table in a prone position on the appropriate well-padded and well molded bilateral chest rolls. We were careful to pad any bony prominences and pressure points. We were careful to maintain the patient's cervical spine and good neutral alignment and position throughout. We used 2 C-arm machines to establish biplanar fluoroscopic guidance in AP and lateral positions. We were able to localize the fractures at L1 appropriately. The patient was prepped and draped in a normal standard fashion. An appropriate timeout and keystone protocol performed. We were able to proceed with the surgery. The local wound area was infiltrated with local anesthetic. An incision was made over the lateral aspect of the pedicle over the appropriate levels with a small 2 mm stab incision on the right of L1. Intraoperative fluoroscopy was taken which showed a marker at the appropriate level. With the appropriate level positively confirmed at L1, I was able to position a sharp trocar over the lateral aspect of the pedicle. As able to advance the trocar into the pedicle and into the posterior aspect of vertebral body being careful to avoid penetration cephalad caudad or medially. The trocar was placed appropriately into the posterior aspect of vertebral body at the appropriate levels. This was confirmed with C-arm guidance. With the trocar intact I was then able to take a bone biopsy with a biopsy punch or a bony drill. The biopsy specimen was passed off to be sent to pathology in formalin. I was then able to place the kyphoplasty balloon within the vertebral body. The position was checked on C-arm. I was able to inflate the balloon under low pressure and visualization with C-arm. The balloon was well enclosed within the vertebral body. The cement was prepared. With the cement at appropriate working condition the balloons were deflated and removed. I was able to place bony cement with trocar with the cement delivery device under low pressure. It had good fill within the vertebral body. We had excellent fill across the fracture site and interdigitating into the superior and inferior aspects of the vertebral body all the way across the vertebral body nicely. There is no evidence of any extravasation of the cement posteriorly toward the canal. The cement was well contained at the appropriate levels. The cement was allowed to cure appropriately. The trochars removed and final images were taken on C-arm. This showed the cement at the appropriate levels. We were able to proceed with closure. The wound was cleaned and dried and dressed with the appropriate dressing. The drapes were broken down. The patient was gently rolled back onto their hospital bed being careful to maintain their cervical spine and good neutral alignment and position. They were woken up by anesthesia, extubated, and brought to the recovery room in good stable condition. The patient will be admitted to the hospital for observation and for appropriate postoperative care, medical management and monitoring. We will continue to follow them closely about the postoperative course.
[2023-12-31] MEDS: SODIUM CHLORIDE 0.9% 1,000 ML IV SCH (18:56)
--- NOTE | 2023-12-31 19:22 | XR ---
EXAMINATION TYPE: XR lumbar spine 3V, FL guidance operating room DATE OF EXAM: 12/31/2023 Comparison: CT yesterday Clinical History: 68-year-old female COMPRESSION FX Findings: L1 kyphoplasty. 7.23 sec FL. DAP 6.83 Gycm2. 2 images are provided. Impression: Intraoperative fluoroscopy as above.
[2024-01-01] MEDS: buPROPion XL 300 MG TAB.ER.24H PO SCH (05:53)
[2024-01-01] MEDS: SENNOSIDES-DOCUSATE SODIUM 1 EACH TAB PO SCH (08:52)
[2024-01-01 09:18] LABS: HCT 39.4 % (37.2-46.3); HGB 12.6 g/dL (12.0-15.0); MCH 29.8 pg (27.0-32.0); MCV 93.1 FL (80.0-97.0); Mean Platelet Volume 10.9 FL (9.5-12.2); NRBC Per 100 WBC 0 X 10*3/uL (0.00-0.01); Platelet Count 310 X 10*3/uL (140-440); RBC 4.23 X 10*6/uL (4.10-5.20); RDW 14.3 % (11.5-14.5); WBC 16.23 X 10*3/uL (4.50-10.00)
[2024-01-01 09:43] LABS: ALT 20 U/L (8-44); AST 18 U/L (13-35); Albumin 3.9 g/dL (3.8-4.9); Albumin/Globulin Ratio 1.77 Ratio (1.60-3.17); Alkaline Phosphatase 185 U/L (41-126); BUN/Creat Ratio 31.62 Ratio (12.00-20.00); Blood Urea Nitrogen 25.3 mg/dL (9.0-27.0); Calcium 9.7 mg/dL (8.7-10.3); Chloride 106 mmol/L (96-109); Globulin 2.2 g/dL (1.6-3.3); Glucose 174 mg/dL (70-110); Potassium 4.4 mmol/L (3.5-5.5); Sodium 142 mmol/L (135-145); Total Bilirubin <0.2 mg/dL (0.3-1.2); Total Protein 6.1 g/dL (6.2-8.2)
--- NOTE | 2024-01-01 10:24 | P.PN ---
Progress Note - Text Progress Note Date: 01/01/24 Postoperative day #1 Patient is seen and examined today at bedside. The patient is doing signif icantly better today than she was yesterday. She is no longer moaning constantly. She was able to get up out of bed with therapy and is able to sit and mobilize to some degree. She now has pain at her right side similar to symptoms that she had back in April after a fall sustained at that point. She is not having new changes in her lower extremities. She is not having any new weakness or numbness or tingling. Pain is being controlled with medication. Physical Exam Afebrile with stable vital signs Abdomen is soft nontender. Chest has good excursion deep and space expiration The incision site is clean dry and intact. No erythema there is no purulence. A small dressing is intact Extremities have not had neurologic change from prior to surgery. She has sustained dorsiflexion plantarflexion EHL Calves and thighs were soft nontender without evidence of DVT. The patient is up in the chair and she is able to move significantly better today than she was yesterday but she still has pains particular the right side of her lower back with mobilization and changing positions Assessment/Plan Postoperative day #1 status post kyphoplasty for an acute traumatic compression fracture at L1 History of prior decompression fusion L2-S1 and thoracic spondylosis and ankylosis Patient is progressing with significant improvement in her pain since yesterday after her surgery. She still has significant pain in her low back and difficulty with mobility but I am very pleased with how much her pain has improved thus far. We will continue to increase the patient's mobilization with therapy. I would like to obtain upright x-rays of her thoracolumbar spine to review for tomorrow. She will likely need continued assistance and long-term placement posthospitalization on Wednesday We will continue pain control with oral or IV medications. We'll continue to follow patient closely.
--- NOTE | 2024-01-01 12:20 | XR ---
EXAMINATION TYPE: XR thoraco lumbar junction, standing DATE OF EXAM: 01/01/2024 COMPARISON: 12/20/2023 HISTORY: 68-year-old female follow-up L1 fracture, pain after fall TECHNIQUE: 2 views FINDINGS: Redemonstrated L2-S1 posterior lumbar fusion with excreted 1 retrolisthesis L2-L3. Interval vertebroplasty change L1. There is a slight accentuation of the kyphosis noted at T12-L1 L4. IMPRESSION: Interval L1 vertebroplasty changes. Overall preserved vertebral body height but with slightly accentu ated kyphosis at T12-L1. Partially visualized L2-S1 posterior lumbar fusion.
--- NOTE | 2024-01-01 12:37 | P.PN ---
Subjective Progress Note Date: 01/01/24 Patient is a very pleasant 68-year-old female sustained a fall on 12/20/2023 when she fell backwards after reaching for a bottle of ketchup. She presented to [facility] for further evaluation. No fractures were found at that time. She was discharged from the ER. She is continue to have ongoing lower lumbar pain. There is no obvious fracture on x-ray imaging. After difficulty with pain control and mobilization, she presented back to the emergency department for further evaluation at which time CT imaging was performed. CT imaging did show evidence of L1 compression fracture deformity without significant height loss. She was admitted to medicine for further evaluation with us orthopedic spine on consultation. 12/31. Patient seen and examined. S/p kyphoplasty for an acute traumatic compression fracture at L1. Complaining of increased frequency of micturition and burning sensation. UA suspicious for UTI REVIEW OF SYSTEMS: CONSTITUTIONAL: No fever, no malaise,. CARDIOVASCULAR: No chest pain, no palpitations, no syncope. PULMONARY: No shortness of breath, no cough, GASTROINTESTINAL: No diarrhea, no nausea, no vomiting, no abdominal pain. NEUROLOGICAL: No headaches, no weakness, PHYSICAL EXAMINATION: GENERAL: The patient is alert and oriented x3, not in any acute distress. Well developed, well nourished. HEENT: Pupils are round and equally reacting to light. EOMI. No scleral icterus. No conjunctival pallor. Normocephalic, atraumatic. No pharyngeal erythema. No thyromegaly. CARDIOVASCULAR: S1 and S2 present. No murmurs, rubs, or gallops. PULMONARY: Chest is clear to auscultation, no wheezing or crackles. ABDOMEN: Soft, nontender, nondistended, normoactive bowel sounds. No palpable organomegaly. MUSCULOSKELETAL: No joint swelling or deformity. EXTREMITIES: No cyanosis, clubbing, or pedal edema. NEUROLOGICAL: Gross neurological examination did not reveal any focal deficits. SKIN: Lumbar area surgical skin seen Assessment and plan Status post fall on 12/20/2023 UTI Acute lumbar pain Inability to ambulate History L2-3 lumbar fusion with hardware extension to intact hardware at L3-S1 Suprapubic bladder catheter Colostomy Fibromyalgia Thyroid disorder Obesity Monitor vital signs Monitor CBC Monitor CMP status post kyphoplasty for an acute traumatic compression fracture at L1 Continue pain management per orthopedics Continue DVT prophylaxis per orthopedics Continue Synthroid Started patient on Rocephin PT and OT consulted Labs and medication were reviewed.. Continue same treatment. Continue with symptomatic treatment. Resume home medication. Monitor labs and vitals. DVT and GI prophylaxis. Further recommendations as per clinical course of the patient Dictation was produced using [employer] dictation software. please excuse any grammatical, word or spelling errors. Objective - Vital Signs Vital signs: Vital Signs Temp 98.1 F 01/01/24 07:19 Pulse 55 L 01/01/24 07:19 Resp 17 01/01/24 07:19 BP 109/60 01/01/24 07:19 Pulse Ox 94 L 01/01/24 07:19 FiO2 Intake & Output 12/31/23 01/01/24 01/01/24 18:59 06:59 18:59 Intake Total 950 Output Total 155 1250 Balance 795 -1250 Intake: IV 950 Output: Urine 150 1250 Estimated Blood Loss 5 Other: Voiding Method Bedpan Indwelling Catheter - Labs CBC & Chem 7: 01/01/24 04:34 01/01/24 04:34 Labs: Abnormal Lab Results - Last 24 Hours (Table) 01/01/24 01/01/24 Range/Units 04:34 04:34 WBC 16.23 H (4.50-10.00) X 10*3/uL BUN/Creatinine Ratio 31.62 H (12.00-20.00) Ratio Glucose 174 H (70-110) mg/dL Total Bilirubin <0.2 L (0.3-1.2) mg/dL Alkaline Phosphatase 185 H (41-126) U/L Total Protein 6.1 L (6.2-8.2) g/dL
--- NOTE | 2024-01-02 11:08 | P.PN ---
Progress Note - Text Progress Note Date: 01/02/24 Postoperative day #2 Patient is seen and examined today at bedside. The patient's back pain is significantly better. She still has numbness tingling at her right lower extremity. She denies any loss of strength. She said that she felt like she had a bladder infection and was found to have an elevated white count was started on antibiotics per medicine. Pain is being controlled with medication. Physical Exam Afebrile with stable vital signs Abdomen is soft nontender. Chest has good excursion deep and space expiration The incision site is clean dry and intact. No erythema there is no purulence. Her site is clear. She was able to stand and shower on her own today. She has been up with her walker. Extremities have not had neurologic change from prior to surgery. She has sustained dorsiflexion plantarflexion EHL bilaterally Calves and thighs were soft nontender without evidence of DVT. X-rays thoracolumbar junction show good alignment and position at the thoracolumbar junction. The cement at L1 appears to be well-contained and stable. There is no further collapse. Her white count was elevated to 16. Urine shows positive leuk esterase cloudy appearance Assessment/Plan Postoperative day #2 status post L1 kyphoplasty Urinary tract infection unrelated to surgery Patient is progressing as expected from the surgery. The films are standing upright and seem to show adequate stability at the thoracolumbar junction. The cement is stable. We will continue to increase the patient's mobilization with therapy. We will continue pain control with oral or IV medications. She is continuing her antibiotics per medicine for urinary tract infection. I do not think it is related to her surgical intervention. She has long-term suprapubic catheter intact Her mobility is improving and she may be able to go home tomorrow or Wednesday versus the possibility of rehab/halfway. We'll continue to follow patient closely.
--- NOTE | 2024-01-02 13:14 | P.PN ---
Subjective Progress Note Date: 01/02/24 Patient is a very pleasant 68-year-old female sustained a fall on 12/20/2023 when she fell backwards after reaching for a bottle of ketchup. She presented to [facility] for further evaluation. No fractures were found at that time. She was discharged from the ER. She is continue to have ongoing lower lumbar pain. There is no obvious fracture on x-ray imaging. After difficulty with pain control and mobilization, she presented back to the emergency department for further evaluation at which time CT imaging was performed. CT imaging did show evidence of L1 compression fracture deformity without significant height loss. She was admitted to medicine for further evaluation with us orthopedic spine on consultation. 12/31. Patient seen and examined. S/p kyphoplasty for an acute traumatic compression fracture at L1. Complaining of increased frequency of micturition and burning sensation. UA suspicious for UTI 01/01. Patient seen and examined. States dysuria has improved. Denies any fever or chills REVIEW OF SYSTEMS: CONSTITUTIONAL: No fever, no malaise,. CARDIOVASCULAR: No chest pain, no palpitations, no syncope. PULMONARY: No shortness of breath, no cough, GASTROINTESTINAL: No diarrhea, no nausea, no vomiting, no abdominal pain. NEUROLOGICAL: No headaches, no weakness, PHYSICAL EXAMINATION: GENERAL: The patient is alert and oriented x3, not in any acute distress. Well developed, well nourished. HEENT: Pupils are round and equally reacting to light. EOMI. No scleral icterus. No conjunctival pallor. Normocephalic, atraumatic. No pharyngeal erythema. No thyromegaly. CARDIOVASCULAR: S1 and S2 present. No murmurs, rubs, or gallops. PULMONARY: Chest is clear to auscultation, no wheezing or crackles. ABDOMEN: Soft, nontender, nondistended, normoactive bowel sounds. No palpable organomegaly. MUSCULOSKELETAL: No joint swelling or deformity. EXTREMITIES: No cyanosis, clubbing, or pedal edema. NEUROLOGICAL: Gross neurological examination did not reveal any focal deficits. SKIN: Lumbar area surgical skin seen Assessment and plan Status post fall on 12/20/2023 UTI Acute lumbar pain Inability to ambulate History L2-3 lumbar fusion with hardware extension to intact hardware at L3-S1 Suprapubic bladder catheter Colostomy Fibromyalgia Thyroid disorder Obesity Monitor vital signs Monitor CBC Monitor CMP status post kyphoplasty for an acute traumatic compression fracture at L1 Continue pain management per orthopedics Continue DVT prophylaxis per orthopedics Continue Synthroid Continue Rocephin PT and OT following Orthopedic following Labs and medication were reviewed.. Continue same treatment. Continue with symptomatic treatment. Resume home medication. Monitor labs and vitals. DVT a nd GI prophylaxis. Further recommendations as per clinical course of the patient Dictation was produced using [employer] dictation software. please excuse any grammatical, word or spelling errors. Objective - Vital Signs Vital signs: Vital Signs Temp 97.4 F L 01/02/24 07:30 Pulse 62 01/02/24 07:30 Resp 16 01/02/24 07:30 BP 134/72 01/02/24 07:30 Pulse Ox 95 01/02/24 07:30 FiO2 Intake & Output 01/01/24 01/02/24 01/02/24 18:59 06:59 18:59 Output Total 1300 2000 Balance -1300 -1999 Output: Urine 1300 2000 Other: Voiding Method Indwelling Catheter Indwelling Catheter Indwelling Catheter - Labs CBC & Chem 7: 01/01/24 04:34 01/01/24 04:34
[2024-01-03 07:37] VITALS: RESP 16
--- NOTE | 2024-01-03 08:33 | P.DS ---
Providers Date of admission: 12/31/23 09:15 Attending physician: Jaskaran Pressley Consults: 12/30/23 05:09 Consult Physician Routine Consulting Provider: Crescencio Perez Consult Reason/Comments: back pain, L1 compression fracture Do you want consulting provider notified?: Yes Primary care physician: Jaskaran Pressley - Discharge Diagnosis(es) (1) Back pain Current Visit: Yes Status: Acute (2) Compression fracture of L1 lumbar vertebra Current Visit: Yes Status: Acute (3) GERD (gastroesophageal reflux disease) Current Visit: No Status: Acute (4) History of degenerative disc disease Current Visit: No Status: Acute (5) History of lumbar fusion Current Visit: No Status: Acute (6) Hypothyroidism Current Visit: No Status: Acute (7) Suprapubic catheter Current Visit: No Status: Acute Hospital Course: This is a 68-year-old female with a past medical history of L3-S1 fusion and significant stenosis of L2-L3, with open compression in February 2023. Patient reports a recent fall at home and has been complaining of back pain. Patient had been seen as an outpatient at Dr. Quinonez's office and was placed on steroids. She continued to have significant pain so presented back to the emergency room in which CT shows an anterior superior endplate horizontal fracture through L1. On Wednesday patient underwent a kyphoplasty of L1 with Dr. Quinonez. She tolerated procedure well. She reports improvement in pain. She has been up walking in the halls. Over the weekend patient found to have a UTI, she was started on rocephin and will continue ceftin at home. She will be discharged home today, declines home care at this time. Patient seen and evaluated by nurse practitioner, physician in agreement with plan Patient Condition at Discharge: Stable Plan - Discharge Summary Discharge Rx Participant: Yes New Discharge Prescriptions: New cefUROXime axetiL [Ceftin] 500 mg PO BID 5 Days #10 tab Continue Gabapentin 800 mg PO TID Ibuprofen [Motrin] 800 mg PO TID Levothyroxine Sodium [Synthroid] 100 mcg PO DAILY buPROPion HCL [Wellbutrin XL] 300 mg PO DAILY@0200 Docusate [Colace] 100 mg PO TID Meclizine [Antivert] 25 mg PO BID polyethylene glycoL 3350 [Miralax] 17 gm PO BID Pantoprazole [Protonix] 40 mg PO DAILY Fluticasone Nasal Boyden [Flonase Nasal Boyden] 1 - 2 spr EA NOSTRIL DAILY Multivit-Min/Iron/Folic/Lutein [Centrum Silver Women Tablet] 1 tab PO DAILY methocarbamoL [Robaxin-750] 750 mg PO TID PRN #90 tab PRN Reason: Muscle Spasm Cholecalciferol [Vitamin D3 (125 Mcg = 5000 Iu)] 125 mcg PO DAILY Latanoprost [Latanoprost 0.005%] 1 drop BOTH EYES HS predniSONE [Deltasone] See Taper PO DAILY Albuterol Inhaler [Ventolin Hfa Inhaler] 2 puff INHALATION RT-QID PRN PRN Reason: shortness of breath Lactulose 30 gm PO DAILY PRN PRN Reason: constipation Sennosides [Senokot] 8.6 mg PO TID Allergy Relief (Unknown) 1 tab PO DAILY Super B Complex 1 tab PO DAILY Famotidine [Pepcid] 20 mg PO BID Oxybutynin ER [Ditropan XL] 10 mg PO DAILY oxyCODONE HCL [oxyCODONE HCL (IR)] 15 mg PO Q6H Wheat Dextrin [Benefiber] 1 gm PO BID Discharge Medication List Gabapentin 800 mg PO TID 09/04/15 [History] Ibuprofen [Motrin] 800 mg PO TID 06/30/16 [History] Levothyroxine Sodium [Synthroid] 100 mcg PO DAILY 06/30/16 [History] buPROPion HCL [Wellbutrin XL] 300 mg PO DAILY@0200 02/04/17 [History] Docusate [Colace] 100 mg PO TID 06/16/18 [History] Meclizine [Antivert] 25 mg PO BID 01/01/20 [History] polyethylene glycoL 3350 [Miralax] 17 gm PO BID 02/11/21 [History] Pantoprazole [Protonix] 40 mg PO DAILY 02/28/21 [History] Albuterol Inhaler [Ventolin Hfa Inhaler] 2 puff INHALATION RT-QID PRN 09/17/22 [History] Fluticasone Nasal Boyden [Flonase Nasal Boyden] 1 - 2 spr EA NOSTRIL DAILY 09/17/22 [History] Lactulose 30 gm PO DAILY PRN 09/17/22 [History] Multivit-Min/Iron/Folic/Lutein [Centrum Silver Women Tablet] 1 tab PO DAILY 02/03/23 [History] Sennosides [Senokot] 8.6 mg PO TID 02/03/23 [History] methocarbamoL [Robaxin-750] 750 mg PO TID PRN #90 tab 02/12/23 [Rx] Allergy Relief (Unknown) 1 tab PO DAILY 12/30/23 [History] Cholecalciferol [Vitamin D3 (125 Mcg = 5000 Iu)] 125 mcg PO DAILY 12/30/23 [History] Famotidine [Pepcid] 20 mg PO BID 12/30/23 [History] Latanoprost [Latanoprost 0.005%] 1 drop BOTH EYES HS 12/30/23 [History] Oxybutynin ER [Ditropan XL] 10 mg PO DAILY 12/30/23 [History] Super B Complex 1 tab PO DAILY 12/30/23 [History] Wheat Dextrin [Benefiber] 1 gm PO BID 12/30/23 [History] oxyCODONE HCL [oxyCODONE HCL (IR)] 15 mg PO Q6H 12/30/23 [History] predniSONE [Deltasone] See Taper PO DAILY 12/30/23 [History] cefUROXime axetiL [Ceftin] 500 mg PO BID 5 Days #10 tab 01/03/24 [Rx] Follow up Appointment(s)/Referral(s): Krystle Quinonez DO [Doctor of Osteopathic Medicine] - 1 Week Jaskaran Pressley MD [Primary Care Provider] - 1 Week Discharge Disposition: HOME SELF-CARE
--- NOTE | 2024-01-03 09:03 | P.PN ---
Progress Note - Text Progress Note Date: 01/03/24 Orthopedic spine: History of present illness: Patient is a very pleasant 68-year-old female who is well-known to our service who is seen and examined at bedside for follow-up evaluation of her lumbar spine. She is known to have sustained a fall on 12/20/2023 when she fell backwards after reaching for a bottle of ketchup. She presented to [facility] for further evaluation. No fractures were found at that time. She was discharged from the ER. She was seen and evaluated in our office for further evaluation. She is continue to have ongoing lower lumbar pain. There is no obvious fracture on x-ray imaging. After difficulty with pain control and mobilization, she presented back to the emergency department for further evaluation at which time CT imaging was performed. CT imaging did show evidence of L1 compression fracture deformity without significant height loss. She was admitted to medicine for further evaluation with us orthopedic spine on consultation. She is known to have a previous fusion with retained hardware L3- S1 with following fusion at L2-3 with attachment to her previous retained hardware. She is also known to have colostomy along with bladder catheter. It was previously discussed about bracing and she would have difficulty with bracing due to her colostomy and suprapubic bladder catheter. She underwent an L1 kyphoplasty with biopsy on 01/01/2024. She has remained in the hospital over the weekend with plans to discharge home versus rehab today ending further discussion with medicine. She does feel her lumbar pain near the compression fracture site has improved. She is still complaining of lower right-sided pain of the lumbar spine towards her right buttock and lateral hip.. She has been able to increase her mobility and ambulation. Physical exam: Patient is awake, alert, and oriented 3 Vital signs stable Good chest excursion with deep inspiration and expiration Examination of lumbar spine reveals skin is intact with no abrasions, lacerations, or bruises; no erythema, purulence or signs of infection Surgical dressing is removed No erythema, bruising, drainage, or obvious sign of infection over the L1 kyphoplasty site Dorsiflexion, plantarflexion, and extensor hallucis longus positive sustained bilaterally Patient does have some pain rolling over in bed Lower extremity strength positive sustained throughout range of motion bilaterally No signs or symptoms of DVT; no calf pain No pain with internal and external rotation of the hips bilaterally Neurovascularly intact Colostomy intact Suprapubic catheter intact Pertinent studies: CT of the lumbar spine taken on 12/30/2023: L1 superior endplate compression fracture; L2-S1 retained hardware without evidence of hardware fracture, loosening, or fatigue Assessment: Status post fall on 12/20/2023 Status post L1 kyphoplasty with biopsy performed on 01/01/2024 Acute lumbar pain Inability to ambulate History L2-3 lumbar fusion with hardware extension to intact hardware at L3-S1 Suprapubic bladder catheter Colostomy Fibromyalgia Thyroid disorder Obesity Plan: 1. Patient has an L1 superior endplate compression fracture deformity. She has previous fusion at L2-S1 with retained hardware. She is status post L1 kyphoplasty and biopsy performed on 01/01/2024. She has had improvement of her pain following kyphoplasty. She does continue to have some pain in her right lower lumbosacral spine towards her right upper buttock and right lateral hip. She has been on increase her mobility and ambulation. She was currently planning for discharge to rehabilitation facility today, 01/04/2024. She states based on her improvement she may feel she could manage this at home. She will discuss this with Dr. Pressley. She is admitted to Dr. Pressley. Currently, patient will be cleared for discharge from an orthopedic spine standpoint. Patient may follow-up with Benny Gómez PA-C or Dr. Clifton Quinonez at [facility] in 2-3 weeks following discharge. Patient should continue to utilize a walker to aid in ambulation as needed. She should avoid excessive bending, twisting, lifting activities. No lifting greater than 10 pounds. 2. Patient will be seen exam by medicine today with plans for discharge to home versus rehab based on medicine recommendations.
--- NOTE | 2024-01-03 10:04 | CDI ---
Documentation Clarification Form Date: 01/03/2024 From: Oksana Rush Phone: [phone] Admit Date: 12/31/2023 09:15:00 AM Patient Name: Roxanne Jaffe Visit Number: [id number] Discharge Date: ATTENTION: The Clinical Documentation Specialists (CDI) and [facility] Coding Staff appreciate your assistance in clarifying documentation. Please respond to the clarification below the line at the bottom and electronically sign. The CDI & [facility] Coding staff will review the response and follow-up if needed. Please note: Queries are made part of the Legal Health Record. If you have any questions, please contact the author of this message via ITS. ALVIN Ambrocio: UTI is documented in the IM progress note 12/31 and patient has a suprapubic catheter. Additional clarification regarding the etiology of the UTI is requested. History/Risk Factors: 68-year-old female with a history of colostomy, L3-S1 fusion, Suprapubic catheter who presents after fall status post kyphoplasty 12/30 Clinical Indicators: 12/29 Triage VS: 111/64, 98.3, 76, 18, 93% room air 12/31 IM ON, Assessment and Plan: "UTI" 01/01 Orthopedic Surgery, Assessment and Plan: "Urinary tract infection unrelated to surgery" 12/29 Urinalysis: Appearance: Cloudy, Blood: Trace, Leukocyte Esterase: Large, RBC: 7, WBC: 88, Calcium Oxalate Crystal: Occasional, Amorphous Sediment: Rare, Bacteria: Moderate, Hyaline Casts: 4, Mucus: Occasional Treatment: Ceftriaxone 2gram IV [id number] start 12/31 Cefazolin 2gram IV [id number] 12/31 Lactated Ringer 1000cc once 12/30 Normal Saline 75cc/hour 12/30-12/31 Please clarify the etiology of the UTI, if known: [ ] Suprapubic catheter [ ] UTI not related to SP catheter [ x] Other condition, please specify ____Bladder atony [ ] Unable to determine MTDD
[2024-01-03 12:45] VITALS: BP 129/68; PULSE 71; TEMP 98.3
--- NOTE | 2024-01-05 11:08 | CDI ---
Documentation Clarification Form Date: 01/05/2024 From: Oksana Rush Phone: [phone] Admit Date: 12/31/2023 09:15:00 AM Patient Name: Roxanne Jaffe Visit Number: [id number] Discharge Date: 01/03/2024 03:13:00 PM ATTENTION: The Clinical Documentation Specialists (CDI) and [facility] Coding Staff appreciate your assistance in clarifying documentation. Please respond to the clarification below the line at the bottom and electronically sign. The CDI & [facility] Coding staff will review the response and follow-up if needed. Please note: Queries are made part of the Legal Health Record. If you have any questions, please contact the author of this message via ITS. Dr. Jaskaran Pressley: UTI is documented in the IM progress note 12/31 and patient has a suprapubic catheter. Additional clarification regarding the etiology of the UTI is requested. History/Risk Factors: 68-year-old female with a history of colostomy, L3-S1 fusion, Suprapubic catheter who presents after fall status post kyphoplasty 12/30 Clinical Indicators: 12/29 Triage VS: 111/64, 98.3, 76, 18, 93% room air 12/31 IM ON, Assessment and Plan: "UTI" 01/01 Orthopedic Surgery, Assessment and Plan: "Urinary tract infection unrelated to surgery" 12/29 Urinalysis: Appearance: Cloudy, Blood: Trace, Leukocyte Esterase: Large, RBC: 7, WBC: 88, Calcium Oxalate Crystal: Occasional, Amorphous Sediment: Rare, Bacteria: Moderate, Hyaline Casts: 4, Mucus: Occasional Treatment: Ceftriaxone 2gram IV [id number] start 12/31 Cefazolin 2gram IV [id number] 12/31 Lactated Ringer 1000cc once 12/30 Normal Saline 75cc/hour 12/30-12/31 Please clarify the etiology of the UTI, if known: [ ] Suprapubic catheter [ ] UTI not related to catheter [x ] Other condition, please specify ____Bladder atony [ ] Unable to determine MTDD
== END 2024-01-03 15:13 | disposition home or self-care (01) | DRG 478 ==
LOC: EC 01:11 → 5NMEDONC 05:09 → OBSVTOIN 12-31 09:15
PROVIDERS: ADMIT Family Medicine; ATTEND Family Medicine
PROC: 0QU03JZ Supplement Lumbar Vertebra with Synthetic Substitute, Percutaneous Approach (ICD-10-PCS; principal; 2023-12-31 16:00)
PROC: 0QB03ZX Excision of Lumbar Vertebra, Percutaneous Approach, Diagnostic (ICD-10-PCS; principal; 2023-12-31 16:00)
DX: M48.56XA Collapsed vertebra, not elsewhere classified, lumbar region, initial encounter for fracture (principal); N39.0 Urinary tract infection, site not specified; M79.7 Fibromyalgia; E66.9 Obesity, unspecified; W19.XXXA Unspecified fall, initial encounter; Z93.3 Colostomy status; Z93.59 Other cystostomy status; E03.9 Hypothyroidism, unspecified; F32.A Depression, unspecified; Z79.890 Hormone replacement therapy; G89.4 Chronic pain syndrome; K21.00 Gastro-esophageal reflux disease with esophagitis, without bleeding; M19.90 Unspecified osteoarthritis, unspecified site; Z87.01 Personal history of pneumonia (recurrent); N31.2 Flaccid neuropathic bladder, not elsewhere classified; T38.0X5A Adverse effect of glucocorticoids and synthetic analogues, initial encounter; Z79.899 Other long term (current) drug therapy; Z90.710 Acquired absence of both cervix and uterus; Z96.659 Presence of unspecified artificial knee joint; Z96.649 Presence of unspecified artificial hip joint; Z98.1 Arthrodesis status; Z68.31 Body mass index [BMI] 31.0-31.9, adult; Z88.1 Allergy status to other antibiotic agents; Z88.8 Allergy status to other drugs, medicaments and biological substances; Z91.040 Latex allergy status; K57.90 Diverticulosis of intestine, part unspecified, without perforation or abscess without bleeding; G89.3 Neoplasm related pain (acute) (chronic); K21.9 Gastro-esophageal reflux disease without esophagitis; G62.9 Polyneuropathy, unspecified; Z90.49 Acquired absence of other specified parts of digestive tract; Z87.19 Personal history of other diseases of the digestive system; Z98.42 Cataract extraction status, left eye; Z98.41 Cataract extraction status, right eye; Z96.653 Presence of artificial knee joint, bilateral; Z96.642 Presence of left artificial hip joint
CPT/HCPCS: 36415; 72080; 72100; 72128; 72131; 74176; 80053; 81001; 85025; 85027; 88307; 88311; 96361; 96374; 96375; 96376; 99285

== ENCOUNTER 2024-04-08 01:10 | Emergency (ER) | payer MEDICARE, OTHER ==
[2024-04-08 01:14] VITALS: RESP 18; TEMP 98
[2024-04-08 02:37] LABS: Appearance,Urine Cloudy (Clear); Bacteria,Urine Few /hpf; Bilirubin,Urine Negative (Negative); Blood,Urine Moderate (Negative); Budding Yeast,Urine Few /hpf; Color,Urine Yellow; Glucose,Urine (UA) Negative (Negative); Hyaline Casts,Urine 8 /lpf (0-2); Ketones,Urine Negative (Negative); Leukocyte Esterase,Urine Large (Negative); Mucus,Urine Occasional /hpf; Nitrite,Urine Positive (Negative); Protein,Urine 1+ (Negative); RBC,Urine 91 /hpf (0-5); Specific Gravity,Urine 1.021 (1.001-1.035); Squamous Epithelial Cell,Urine 4 /hpf (0-4); Urobilinogen,Urine <2.0 mg/dL (<2.0); WBC,Urine 40 /hpf (0-5)
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
[2024-04-08 04:29] VITALS: BP 138/76; PULSE 82
== END 2024-04-08 04:27 | disposition home or self-care (01) ==
LOC: EC 01:10
CPT/HCPCS: 51702; 81001; 87077; 87086; 87186; 99283

== ENCOUNTER 2024-04-11 10:02 | Inpatient (IN) | payer MEDICARE, OTHER ==
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
[2024-04-11] MEDS: PIPERACILLIN-TAZOBACTAM 3.375 GM in SODIUM CHLORIDE 0.9% 100 ML IVPB STA ×2 (10:52→11:06)
[2024-04-11 11:02] LABS: Basophils % (A) 0 %; Eosinophils # (A) 0.3 k/uL (0-0.7); Eosinophils % (A) 3 %; HCT 37.7 % (34.0-46.0); Lymphocytes # (A) 1.9 k/uL (1.0-4.8); Lymphocytes % (A) 21 %; MCH 29.7 pg (25.0-35.0); MCHC 31.9 g/dL (31.0-37.0); MCV 93.2 fL (80.0-100.0); Mean Platelet Volume 8.3; Monocytes # (A) 0.5 k/uL (0-1.0); Monocytes % (A) 6 %; Neutrophils # (A) 6.1 k/uL (1.3-7.7); Neutrophils % (A) 69 %; Platelet Count 234 k/uL (150-450); RBC 4.05 m/uL (3.80-5.40); RDW 14.2 % (11.5-15.5); WBC 8.8 k/uL (3.8-10.6)
[2024-04-11 11:34] LABS: ALT 23 U/L (4-34); AST 46 U/L (14-36); African American GFR (CKD) >90 (>60 ml/min/1.73 sqM); Albumin 3.7 g/dL (3.5-5.0); Alkaline Phosphatase 123 U/L (38-126); Anion Gap 7 mmol/L; Blood Urea Nitrogen 13 mg/dL (7-17); Calcium 9.5 mg/dL (8.4-10.2); Carbon Dioxide 20 mmol/L (22-30); Chloride 111 mmol/L (98-107); Glucose 122 mg/dL (74-99); Non-African American GFR(CKD) 84 (>60 ml/min/1.73 sqM); Potassium 3.3 mmol/L (3.5-5.1); Sodium 138 mmol/L (137-145); Total Bilirubin 0.5 mg/dL (0.2-1.3); Total Protein 6.2 g/dL (6.3-8.2)
[2024-04-11 11:43] LABS: Appearance,Urine Cloudy (Clear); Bacteria,Urine Rare /hpf; Bilirubin,Urine Negative (Negative); Blood,Urine Trace (Negative); Budding Yeast,Urine Occasional /hpf; Calcium Oxalate Crystals,Urine Occasional /hpf; Color,Urine Yellow; Glucose,Urine (UA) Negative (Negative); Hyaline Casts,Urine 4 /lpf (0-2); Ketones,Urine Negative (Negative); Leukocyte Esterase,Urine Large (Negative); Mucus,Urine Moderate /hpf; Nitrite,Urine Positive (Negative); PH, Urine 6.5 (5.0-8.0); Protein,Urine 1+ (Negative); RBC,Urine 35 /hpf (0-5); Specific Gravity,Urine 1.019 (1.001-1.035); Squamous Epithelial Cell,Urine 3 /hpf (0-4); Urobilinogen,Urine <2.0 mg/dL (<2.0); WBC,Urine >182 /hpf (0-5)
[2024-04-11] MEDS ORDERED: NALOXONE 0.4 MG/ML 1 ML VIAL IV PRN (13:39)
[2024-04-11] MEDS ORDERED: ONDANSETRON 4 MG/2 ML VIAL IVP PRN (13:39)
[2024-04-11] MEDS: SODIUM CHLORIDE 0.9% 1,000 ML IV SCH (14:49)
[2024-04-11] MEDS: MORPHINE SULFATE 4 MG/ML SYRINGE IV PRN (15:01)
[2024-04-11] MEDS ORDERED: ALBUTEROL NEBULIZED 2.5 MG/3 ML INHALATION PRN (21:26)
[2024-04-11] MEDS: GABAPENTIN 400 MG CAP PO SCH (22:14)
[2024-04-11] MEDS: SENNOSIDES 8.6 MG TAB PO SCH (22:14)
[2024-04-11] MEDS: MECLIZINE 25 MG TAB PO SCH (22:15)
[2024-04-11] MEDS: DOCUSATE 100 MG CAP PO SCH (22:15)
[2024-04-11] MEDS: LATANOPROST 0.005% OPHTH DROPS 2.5 ML BTL BOTH EYES SCH (22:59)
[2024-04-11] MEDS: FLUTICASONE NASAL 50MCG/SPRAY 16GM BTL EA NOSTRIL SCH (23:00)
[2024-04-12 05:55] LABS: Glucose,Whole Blood 103 mg/dL (70-110)
[2024-04-12] MEDS: LEVOTHYROXINE 100 MCG TAB PO SCH (05:56)
[2024-04-12] MEDS: IBUPROFEN 800 MG TAB PO SCH (06:32)
[2024-04-12] MEDS: buPROPion XL 300 MG TAB.ER.24H PO SCH (08:09)
[2024-04-12] MEDS: PANTOPRAZOLE 40 MG TABLET PO SCH (08:09)
[2024-04-12] MEDS: CHOLECALCIFEROL 125 MCG (5000 IU) TABLET PO SCH (08:09)
[2024-04-12] MEDS: VIT A,C & E-LUTEIN-MINERALS 1 EACH TAB PO SCH (08:09)
[2024-04-12] MEDS: DULoxetine HCL 30 MG CAPSULE.DR PO SCH (08:10)
[2024-04-12] MEDS: OXYBUTYNIN 10 MG TAB.ER.24 PO SCH (08:10)
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
[2024-04-12] MEDS ORDERED: LACTULOSE 20 GM/30 ML CUP PO PRN (09:00)
[2024-04-12] MEDS: PIPERACILLIN-TAZOBACTAM 3.375 GM in SODIUM CHLORIDE 0.9% 100 ML IVPB SCH ×2 (09:31→15:19)
--- NOTE | 2024-04-13 08:02 | CDI ---
Documentation Clarification Form Date: 04/13/2024 From: Oksana Rush RN CCDS Phone: [phone] Admit Date: 04/11/2024 12:20:00 PM Patient Name: Roxanne Jaffe Visit Number: [id number] Discharge Date: ATTENTION: The Clinical Documentation Specialists (CDI) and [facility] Coding Staff appreciate your assistance in clarifying documentation. Please respond to the clarification below the line at the bottom and electronically sign. The CDI & [facility] Coding staff will review the response and follow-up if needed. Please note: Queries are made part of the Legal Health Record. If you have any questions, please contact the author of this message via ITS. Doctor/Provider: Jaskaran Pressley MD: UTI is documented in the H&P 04/12 and patient has a suprapubic catheter. Additional clarification regarding the etiology of the UTI is requested. History/Risk Factors: 68-year-old female with a history of atonic bladder with suprapubic catheter Clinical Indicators: 04/11 ED note, HPI: "68-year-old female presenting to the ER for positive urine culture. States she was seen here in the ER several days ago where her suprapubic Malin catheter was replaced and she was diagnosed with a UTI." 04/12 H&P, Assessment and Plan: "UTI" 04/11 Urinalysis: Appearance: Cloudy, Blood: Trace, Nitrite: Positive, Leukocyte Esterase: Large, RBC: 35, WBC: >182, Bacteria: Rare, Hyaline Casts: 4, Mucus: Moderate, Urine Yeast: Occasional 04/11 Urine Culture Preliminary: Gram negative Bacilli Treatment: Normal Saline 75cc/hour start 04/11 Zosyn 3.375grams IV once 04/11 then T1vispf start 04/12 Please clarify the etiology of the UTI, if known: [ x] Suprapubic catheter [ ] UTI not related to catheter/urostomy [ ] Other condition, please specify [ ] Unable to determine MTDD
--- NOTE | 2024-04-13 08:41 | P.PN ---
Subjective Progress Note Date: 04/13/24 The patient is a 68-year-old white female with fibromyalgia and history of bladder atony. She is going to have utero [place] conduit next month done by urology/colorectal surgeon. She came in feeling poorly low-grade fever but headache. Urinalysis shows significant urinary tract infection with positive lactate. She is appropriate admitted for antibiotic treatment. She has been taking Keflex faithfully. Past medical history includes significant degenerative disc disease of the lumbar spine. History of fibromyalgia history of C. difficile in the remote past. 04/13/2024 Patient seen and evaluated this morning laying in bed. Urine culture is still pending. Patient is complaining of some mild heartburn this morning. Her vitals are stable. Objective - Vital Signs Vital signs: Vital Signs Temp 98.0 F 04/13/24 07:35 Pulse 67 04/13/24 07:35 Resp 16 04/13/24 07:35 BP 122/72 04/13/24 07:35 Pulse Ox 96 04/13/24 07:35 FiO2 Intake & Output 04/12/24 04/13/24 04/13/24 18:59 06:59 18:59 Output Total 1000 800 Balance -1000 -800 Output: Urine 1000 800 Other: Voiding Method Indwelling Catheter - Constitutional General appearance: Present: cooperative, no acute distress - EENT Eyes: Present: PERRLA - Neck Neck: Present: normal ROM. Absent: lymphadenopathy, rigidity - Respiratory Respiratory: bilateral: diminished - Cardiovascular Rhythm: regular Heart sounds: normal: S1, S2 - Gastrointestinal General gastrointestinal: Present: soft. Absent: tenderness - Integumentary Integumentary: Present: normal, normal turgor - Musculoskeletal Musculoskeletal: Present: generalized weakness - Psychiatric Psychiatric: Present: A&O x's 3 - Labs CBC & Chem 7: 04/11/24 10:36 04/11/24 10:36 Labs: Microbiology - Last 24 Hours (Table) 04/11/24 10:36 Blood Culture - Preliminary Blood 04/11/24 10:36 Urine Culture - Preliminary Urine,Voided Gram Neg Bacilli Assessment and Plan (1) Urinary tract infection Current Visit: Yes Status: Acute Code(s): N39.0 - URINARY TRACT INFECTION, SITE NOT SPECIFIED SNOMED Code(s): 56757516 (2) Abdominal pain Current Visit: No Status: Acute Code(s): R10.9 - UNSPECIFIED ABDOMINAL PAIN SNOMED Code(s): 25023422 (3) Atonic urinary bladder Current Visit: No Status: Acute Code(s): N31.2 - FLACCID NEUROPATHIC BLADDER, NOT ELSEWHERE CLASSIFIED SNOMED Code(s): 675973429 (4) Back pain Current Visit: No Status: Acute Code(s): M54.9 - DORSALGIA, UNSPECIFIED SNOMED Code(s): 357498051 (5) Colostomy in place Current Visit: No Status: Acute Code(s): Z93.3 - COLOSTOMY STATUS SNOMED Code(s): 099915416 (6) DDD (degenerative disc disease), cervical Current Visit: No Status: Acute Code(s): M50.30 - OTHER CERVICAL DISC DEGENERATION, UNSP CERVICAL REGION SNOMED Code(s): 88541092 (7) Fibromyalgia Current Visit: No Status: Acute Code(s): M79.7 - FIBROMYALGIA SNOMED Code(s): 993735945 (8) History of lumbar fusion Current Visit: No Status: Acute Code(s): Z98.1 - ARTHRODESIS STATUS SNOMED Code(s): 89447375358603 (9) Hypothyroidism Current Visit: No Status: Acute Code(s): E03.9 - HYPOTHYROIDISM, UNSPECIFIED SNOMED Code(s): 81553931 Plan: Continue IV antibiotics. Order Maalox as needed. Check CBC and CMP in the morning. Patient seen and evaluated by nurse practitioner, physician in agreement with plan.
[2024-04-13] MEDS: MAG HYDROX/AL HYDROX/SIMETH 30 ML CUP PO PRN (08:46)
[2024-04-13 08:51] LABS: HCT 36.2 % (37.2-46.3); HGB 11.8 g/dL (12.0-15.0); MCHC 32.6 g/dL (32.0-37.0); NRBC Per 100 WBC 0 X 10*3/uL (0.00-0.01); Platelet Count 230 X 10*3/uL (140-440); RBC 3.81 X 10*6/uL (4.10-5.20); RDW 14.5 % (11.5-14.5); WBC 9.61 X 10*3/uL (4.50-10.00)
[2024-04-13 09:10] LABS: ALT 23 U/L (8-44); AST 31 U/L (13-35); Albumin 3.6 g/dL (3.8-4.9); Alkaline Phosphatase 129 U/L (41-126); BUN/Creat Ratio 21.14 Ratio (12.00-20.00); Blood Urea Nitrogen 14.8 mg/dL (9.0-27.0); Calcium 9.1 mg/dL (8.7-10.3); Chloride 109 mmol/L (96-109); Glucose 95 mg/dL (70-110); Potassium 3.9 mmol/L (3.5-5.5); Sodium 144 mmol/L (135-145); Total Bilirubin <0.2 mg/dL (0.3-1.2); Total Protein 5.6 g/dL (6.2-8.2)
[2024-04-13] MEDS: FAMOTIDINE 20 MG TAB PO SCH (17:31)
[2024-04-14 08:45] LABS: HCT 36.4 % (37.2-46.3); HGB 11.7 g/dL (12.0-15.0); MCH 30.2 pg (27.0-32.0); MCHC 32.1 g/dL (32.0-37.0); MCV 93.8 FL (80.0-97.0); Mean Platelet Volume 10.9 FL (9.5-12.2); NRBC Per 100 WBC 0 X 10*3/uL (0.00-0.01); Platelet Count 214 X 10*3/uL (140-440); RBC 3.88 X 10*6/uL (4.10-5.20); RDW 14.6 % (11.5-14.5); WBC 9.91 X 10*3/uL (4.50-10.00)
[2024-04-14 08:50] LABS: ALT 28 U/L (8-44); AST 35 U/L (13-35); Albumin 3.7 g/dL (3.8-4.9); Albumin/Globulin Ratio 1.76 Ratio (1.60-3.17); Alkaline Phosphatase 136 U/L (41-126); BUN/Creat Ratio 22.43 Ratio (12.00-20.00); Blood Urea Nitrogen 15.7 mg/dL (9.0-27.0); Calcium 8.8 mg/dL (8.7-10.3); Carbon Dioxide 27.7 mmol/L (21.6-31.8); Chloride 105 mmol/L (96-109); Globulin 2.1 g/dL (1.6-3.3); Glucose 97 mg/dL (70-110); Potassium 4.3 mmol/L (3.5-5.5); Sodium 142 mmol/L (135-145); Total Bilirubin 0.2 mg/dL (0.3-1.2); Total Protein 5.8 g/dL (6.2-8.2)
--- NOTE | 2024-04-14 12:58 | P.PN ---
Subjective Principal diagnosis: Complicated UTI. The patient had element of complicated due to UTI. It does show Pseudomonas Aeroginosa She has multiple allergies. We will ask infectious disease for discharge medication therapy. Pain seems to be minimal today. Objective - Vital Signs Vital signs: Vital Signs Temp 98.9 F 04/14/24 07:44 Pulse 77 04/14/24 08:40 Resp 18 04/14/24 08:40 BP 152/77 04/14/24 07:44 Pulse Ox 93 L 04/14/24 07:44 FiO2 Intake & Output 04/13/24 04/14/24 04/14/24 18:59 06:59 18:59 Intake Total 1855 Output Total 1000 800 Balance -1000 1055 Intake: Intake, IV Titration 775 Amount Piperacillin-Tazobactam 3 100 .375 gm In Sodium Chloride 0.9% 100 ml @ 25 mls/hr IVPB Q8HR [facility] Rx# :[id number] Sodium Chloride 0.9% 1, 675 000 ml @ 75 mls/hr IV . [id number] [facility] Rx#:[id number] Oral 1080 Output: Urine 1000 800 Other: Voiding Method Toilet Toilet Indwelling Catheter Indwelling Catheter # Voids 1 - Constitutional General appearance: Present: average body habitus - EENT Eyes: Absent: abnormal pupil - Neck Neck: Absent: lymphadenopathy - Cardiovascular Rhythm: regular Heart sounds: normal: S1, S2 Abnormal Heart Sounds: Absent: S3 Gallop - Gastrointestinal General gastrointestinal: Present: soft - Integumentary Integumentary: Absent: cellulitis - Psychiatric Psychiatric: Present: A&O x's 3 - Labs CBC & Chem 7: 04/14/24 03:24 04/14/24 03:24 Labs: Abnormal Lab Results - Last 24 Hours (Table) 04/14/24 04/14/24 Range/Units 03:24 03:24 RBC 3.88 L (4.10-5.20) X 10*6/uL Hgb 11.7 L (12.0-15.0) g/dL Hct 36.4 L (37.2-46.3) % RDW 14.6 H (11.5-14.5) % BUN/Creatinine Ratio 22.43 H (12.00-20.00) Ratio Total Bilirubin 0.2 L (0.3-1.2) mg/dL Alkaline Phosphatase 136 H (41-126) U/L Total Protein 5.8 L (6.2-8.2) g/dL Albumin 3.7 L (3.8-4.9) g/dL Microbiology - Last 24 Hours (Table) 04/11/24 10:36 Blood Culture - Preliminary Blood Assessment and Plan (1) Urinary tract infection Current Visit: Yes Status: Acute Code(s): N39.0 - URINARY TRACT INFECTION, SITE NOT SPECIFIED SNOMED Code(s): 03729093 (2) Abdominal pain Current Visit: No Status: Acute Code(s): R10.9 - UNSPECIFIED ABDOMINAL PAIN SNOMED Code(s): 21441286 (3) Atonic urinary bladder Current Visit: No Status: Acute Code(s): N31.2 - FLACCID NEUROPATHIC BLADDER, NOT ELSEWHERE CLASSIFIED SNOMED Code(s): 071687055 (4) Back pain Current Visit: No Status: Acute Code(s): M54.9 - DORSALGIA, UNSPECIFIED SNOMED Code(s): 442582879 (5) Colostomy in place Current Visit: No Status: Acute Code(s): Z93.3 - COLOSTOMY STATUS SNOMED Code(s): 475265724 (6) DDD (degenerative disc disease), cervical Current Visit: No Status: Acute Code(s): M50.30 - OTHER CERVICAL DISC DEGENERATION, UNSP CERVICAL REGION SNOMED Code(s): 93208752 (7) Fibromyalgia Current Visit: No Status: Acute Code(s): M79.7 - FIBROMYALGIA SNOMED Code(s): 878628906 (8) History of lumbar fusion Current Visit: No Status: Acute Code(s): Z98.1 - ARTHRODESIS STATUS SNOMED Code(s): 17731585646533 (9) Hypothyroidism Current Visit: No Status: Acute Code(s): E03.9 - HYPOTHYROIDISM, UNSPECIFIED SNOMED Code(s): 36724811 Plan: Continue Zosyn at this time. Check CBC and CMP in AM. Reconcile home medications. The patient is a full code at this time. Appreciate Dr. Hunt input.
[2024-04-14] MEDS: GENTAMICIN 0.3% OPHTH DROPS 5 ML BTL BOTH EYES SCH (13:33)
[2024-04-15 09:00] LABS: HCT 35.5 % (37.2-46.3); HGB 11.5 g/dL (12.0-15.0); MCHC 32.4 g/dL (32.0-37.0); MCV 95.7 FL (80.0-97.0); Mean Platelet Volume 10.9 FL (9.5-12.2); NRBC Per 100 WBC 0 X 10*3/uL (0.00-0.01); Platelet Count 208 X 10*3/uL (140-440); RBC 3.71 X 10*6/uL (4.10-5.20); RDW 14.4 % (11.5-14.5); WBC 10.43 X 10*3/uL (4.50-10.00)
[2024-04-15 09:14] LABS: ALT 31 U/L (8-44); AST 34 U/L (13-35); Albumin 3.6 g/dL (3.8-4.9); Albumin/Globulin Ratio 1.71 Ratio (1.60-3.17); Alkaline Phosphatase 134 U/L (41-126); BUN/Creat Ratio 16.25 Ratio (12.00-20.00); Calcium 8.8 mg/dL (8.7-10.3); Carbon Dioxide 27.9 mmol/L (21.6-31.8); Chloride 104 mmol/L (96-109); Globulin 2.1 g/dL (1.6-3.3); Glucose 94 mg/dL (70-110); Sodium 141 mmol/L (135-145); Total Bilirubin 0.3 mg/dL (0.3-1.2); Total Protein 5.7 g/dL (6.2-8.2)
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
--- NOTE | 2024-04-15 10:11 | US ---
EXAMINATION TYPE: US kidneys/renal and bladder DATE OF EXAM: 04/15/2024 COMPARISON: 10/29/2023 CLINICAL INDICATION: Female, 68 years old with history of uti and bacteremia; UTI TECHNIQUE: Grayscale and color Doppler imaging of the bilateral kidneys and urinary bladder: FINDINGS: EXAM MEASUREMENTS: Right Kidney: 9.7 x 4.7 x 4.2 cm Left Kidney: 10.7 x 5.4 x 4.4 cm Right Kidney: No hydronephrosis or masses seen Left Kidney: No hydronephrosis or masses seen Bladder: Cather in place. There is no evidence for hydronephrosis at this point in time. No nephrolithiasis is seen. No juliet s are identified. The urinary bladder is anechoic. Bilateral ureteral jets are seen. IMPRESSION: 1. No renal calcification or hydronephrosis. 2. no solid renal mass. 3 Malin catheter within the urinary bladder [facility], , 04/15/2024 10:09 AM
--- NOTE | 2024-04-15 11:17 | P.PN ---
Subjective This is a pleasant 68 years old female with past medical history of multiple medical problems as below. She was called back to the emergency room for positive urine culture. Patient is a known case of suprapubic catheter and she was complaining from suprapubic pain and tenderness, catheter was replaced and she was diagnosed with UTI and discharged home on Keflex however urine culture came back positive for Pseudomonas and patient called back to the emergency room. Patient still complaining from suprapubic pain with little relief with oral antibiotic. Currently she has been evaluated by infectious disease team on Zosyn. Urine culture growing Pseudomonas pending final culture, sensitive to Cipro. Urinalysis is also suspicious for infection however renal ultrasound showing no hydronephrosis or no evidence of solid mass and Malin catheter in place. Patient was bothered today because of itchiness in her both eyes with no double vision or blurred vision. She was diagnosed with conjunctivitis yesterday and started with gentamicin eyedrops. On examination she still have conjunctivitis today. Vitals are stable Labs showing mild leukocytosis of 10.4, hemoglobin 11.5 and BMP is unremarkable Objective - Vital Signs Vital signs: Vital Signs Temp 97.9 F 04/15/24 07:05 Pulse 109 H 04/15/24 07:05 Resp 16 04/15/24 07:05 BP 133/74 04/15/24 07:05 Pulse Ox 95 04/15/24 07:05 FiO2 Intake & Output 04/14/24 04/15/24 04/15/24 18:59 06:59 18:59 Intake Total 1330 Output Total 1100 500 500 Balance -1100 830 -500 Intake: Intake, IV Titration 850 Amount Piperacillin-Tazobactam 3 100 .375 gm In Sodium Chloride 0.9% 100 ml @ 25 mls/hr IVPB Q8HR ANA MARÍA Rx# :[id number] Sodium Chloride 0.9% 1, 750 000 ml @ 75 mls/hr IV . [id number] ANA MARÍA Rx#:[id number] Oral 480 Output: Urine 1100 500 500 Other: Voiding Method Toilet Toilet Indwelling Catheter Indwelling Catheter # Voids 2 - Labs CBC & Chem 7: 04/15/24 04:14 04/15/24 04:14 Labs: Abnormal Lab Results - Last 24 Hours (Table) 04/15/24 04/15/24 Range/Units 04:14 04:14 WBC 10.43 H (4.50-10.00) X 10*3/uL RBC 3.71 L (4.10-5.20) X 10*6/uL Hgb 11.5 L (12.0-15.0) g/dL Hct 35.5 L (37.2-46.3) % Alkaline Phosphatase 134 H (41-126) U/L Total Protein 5.7 L (6.2-8.2) g/dL Albumin 3.6 L (3.8-4.9) g/dL Microbiology - Last 24 Hours (Table) 04/11/24 10:36 Blood Culture - Preliminary Blood Assessment and Plan Assessment: Acute urinary tract infection secondary to Pseudomonas aeruginosa related to urinary catheter, present on admission Conjunctivitis Fibromyalgia History of GERD Osteoarthritis Hypothyroidism This is degenerative disc disease of the spine Chronic back pain History of proctosigmoiditis s/p colostomy. Patient states that she is planning to follow-up with her urologist and general surgeon at [facility] for colostomy reversal and for urostomy procedure Plan: Continue with Zosyn Renal ultrasound reviewed Follow-up final results of urine culture and blood culture per ID team Continue with eyedrops for Conjunctivitis Further recommendation based on the clinical course Labs and medication were reviewed.. Continue same treatment. Continue with symptomatic treatment. Resume home medication. Monitor labs and vitals. DVT and GI prophylaxis. Further recommendations as per clinical course of the patient DVT prophylaxis: Subcutaneous heparin GI Prophylaxis: Pepcid Prognosis is guarded
--- NOTE | 2024-04-15 14:44 | P.PN ---
Subjective Progress Note Date: 04/15/24 Principal diagnosis: Reason for follow-up is a catheter associated UTI Patient is a 68-year-old female with a past medical history significant for reflux fibromyalgia pneumonia epilepsy diverticulitis did have a colostomy and a suprapubic catheter admitted to hospital concerning for catheter associated UTI. On today's evaluation that is 04/15/2024,the patient denies any fever or any chills, patient is breathing comfortably on room air, the patient denies chest pain shortness of breath and no significant cough, patient denies abdominal pain, no nausea vomiting or diarrhea. Patient white count is 10.43, creatinine 0.3 next Objective - Vital Signs Vital signs: Vital Signs Temp 97.9 F 04/15/24 07:05 Pulse 109 H 04/15/24 08:00 Resp 16 04/15/24 08:00 BP 133/74 04/15/24 07:05 Pulse Ox 95 04/15/24 07:05 FiO2 Intake & Output 04/14/24 04/15/24 04/15/24 18:59 06:59 18:59 Intake Total 1330 Output Total 1100 500 500 Balance -1100 830 -500 Intake: Intake, IV Titration 850 Amount Piperacillin-Tazobactam 3 100 .375 gm In Sodium Chloride 0.9% 100 ml @ 25 mls/hr IVPB Q8HR ANA MARÍA Rx# :[id number] Sodium Chloride 0.9% 1, 750 000 ml @ 75 mls/hr IV . [id number] ANA MARÍA Rx#:[id number] Oral 480 Output: Urine 1100 500 500 Other: Voiding Method Toilet Toilet Toilet Indwelling Catheter Indwelling Catheter Indwelling Catheter # Voids 2 - Exam GENERAL DESCRIPTION: An elderly female lying in bed in no distress RESPIRATORY SYSTEM: Unlabored breathing , decreased breath sounds at bases HEART: S1 S2 regular rate and rhythm , ABDOMEN: Soft , no tenderness EXTREMITIES: No edema feet - Labs CBC & Chem 7: 04/15/24 04:14 04/15/24 04:14 Labs: Abnormal Lab Results - Last 24 Hours (Table) 04/15/24 04/15/24 Range/Units 04:14 04:14 WBC 10.43 H (4.50-10.00) X 10*3/uL RBC 3.71 L (4.10-5.20) X 10*6/uL Hgb 11.5 L (12.0-15.0) g/dL Hct 35.5 L (37.2-46.3) % Alkaline Phosphatase 134 H (41-126) U/L Total Protein 5.7 L (6.2-8.2) g/dL Albumin 3.6 L (3.8-4.9) g/dL Microbiology - Last 24 Hours (Table) 04/11/24 10:36 Blood Culture - Preliminary Blood Assessment and Plan (1) Urinary tract infection Current Visit: Yes Status: Acute Code(s): N39.0 - URINARY TRACT INFECTION, SITE NOT SPECIFIED SNOMED Code(s): 65446370 Plan: 1patient presented to hospital with some lower abdominal discomfort positive UA with recent urine culture positive for drug-resistant Citrobacter and Pseudomonas aeruginosa concerning for catheter associated UTI, however repeat urine culture not showing Pseudomonas that is related to sensitive pathogen 2patient did have a questionable Levaquin allergy however mention she has taken Cipro without any problem. 3patient did have ultrasound of the bladder kidney that was negative for any obstructive uropathy 4patient to continue with Zosyn while inpatient finishing therapy with oral Cipro Dictation was produced using [employer] dictation software. please excuse any grammatical, word or spelling errors. Time with Patient: Less than 30
[2024-04-15] MEDS: KETOTIFEN 0.025% OPHTH DROPS 5 ML BTL BOTH EYES SCH (14:55)
--- NOTE | 2024-04-16 16:39 | P.PN ---
Subjective This is a pleasant 68 years old female with past medical history of multiple medical problems as below. She was called back to the emergency room for positive urine culture. Patient is a known case of suprapubic catheter and she was complaining from suprapubic pain and tenderness, catheter was replaced and she was diagnosed with UTI and discharged home on Keflex however urine culture came back positive for Pseudomonas and patient called back to the emergency room. Patient still complaining from suprapubic pain with little relief with oral antibiotic. Currently she has been evaluated by infectious disease team on Zosyn. Urine culture growing Pseudomonas pending final culture, sensitive to Cipro. Urinalysis is also suspicious for infection however renal ultrasound showing no hydronephrosis or no evidence of solid mass and Malin catheter in place. Patient was bothered today because of itchiness in her both eyes with no double vision or blurred vision. She was diagnosed with conjunctivitis yesterday and started with gentamicin eyedrops. On examination she still have conjunctivitis today. Vitals are stable Labs showing mild leukocytosis of 10.4, hemoglobin 11.5 and BMP is unremarkable 04/16 No new complaint: No significant suprapubic pain and tenderness Her tachycardia improving Objective - Vital Signs Vital signs: Vital Signs Temp 98.1 F 04/16/24 06:46 Pulse 67 04/16/24 06:46 Resp 18 04/16/24 06:46 BP 124/73 04/16/24 06:46 Pulse Ox 94 L 04/16/24 06:46 FiO2 Intake & Output 04/15/24 04/16/24 04/16/24 18:59 06:59 18:59 Intake Total 1150 1240 Output Total 500 Balance 650 1240 Intake: Intake, IV Titration 500 1000 Amount Piperacillin-Tazobactam 3 200 100 .375 gm In Sodium Chloride 0.9% 100 ml @ 25 mls/hr IVPB Q8HR ANA MARÍA Rx# :[id number] Sodium Chloride 0.9% 1, 300 900 000 ml @ 75 mls/hr IV . [id number] ANA MARÍA Rx#:[id number] Oral 650 240 Output: Urine 500 Other: Voiding Method Toilet Indwelling Catheter Indwelling Catheter # Voids 2 - Exam GENERAL: The patient is alert and oriented x3, not in any acute distress. Well developed, well nourished. HEENT: Pupils are round and equally reacting to light. EOMI. No scleral icterus. No conjunctival pallor. Normocephalic, atraumatic. No pharyngeal erythema. No thyromegaly. CARDIOVASCULAR: S1 and S2 present. No murmurs, rubs, or gallops. PULMONARY: Chest is clear to auscultation, no wheezing , no crackles. ABDOMEN: Soft, nontender, nondistended, normoactive bowel sounds. No palpable organomegaly. MUSCULOSKELETAL: No joint swelling or deformity. EXTREMITIES: No cyanosis, clubbing, or pedal edema. NEUROLOGICAL: Gross neurological examination did not reveal any focal deficits. SKIN: No rashes. no petechiae. - Labs CBC & Chem 7: 04/15/24 04:14 04/15/24 04:14 Assessment and Plan Assessment: Acute urinary tract infection secondary to Pseudomonas aeruginosa related to urinary catheter, present on admission Conjunctivitis Fibromyalgia History of GERD Osteoarthritis Hypothyroidism This is degenerative disc disease of the spine Chronic back pain History of proctosigmoiditis s/p colostomy. Patient states that she is planning to follow-up with her urologist and general surgeon at [facility] for colostomy reversal and for urostomy procedure Plan: Continue with Zosyn Renal ultrasound reviewed Follow-up final results of urine culture and blood culture per ID team Continue with eyedrops for Conjunctivitis Further recommendation based on the clinical course Labs and medication were reviewed.. Continue same treatment. Continue with symptomatic treatment. Resume home medication. Monitor labs and vitals. DVT and GI prophylaxis. Further recommendations as per clinical course of the patient DVT prophylaxis: Subcutaneous heparin GI Prophylaxis: Pepcid Prognosis is guarded
--- NOTE | 2024-04-16 16:40 | P.PN ---
Subjective Progress Note Date: 04/16/24 Principal diagnosis: Reason for follow-up is a catheter associated UTI Patient is a 68-year-old female with a past medical history significant for reflux fibromyalgia pneumonia epilepsy diverticulitis did have a colostomy and a suprapubic catheter admitted to hospital concerning for catheter associated UTI. On today's evaluation that is 04/16/2024,the patient remains to be afebrile, patient is on room air not requiring supplemental oxygen and denies any shortness of breath no chest pain or cough.Patient denies having any nausea or vomiting, no abdominal pain and no diarrhea has been reported still complaining of pain to the lower abdominal area and some burning patient did not have any lab draw today urine has been finalized with Pseudomonas and Citrobacter that is resistant pathogen sensitive to Zosyn Objective - Vital Signs Vital signs: Vital Signs Temp 98.3 F 04/16/24 14:25 Pulse 77 04/16/24 14:25 Resp 20 04/16/24 14:25 BP 121/75 04/16/24 14:25 Pulse Ox 94 L 04/16/24 14:25 FiO2 Intake & Output 04/15/24 04/16/24 04/16/24 18:59 06:59 18:59 Intake Total 1150 1240 Output Total 500 Balance 650 1240 Intake: Intake, IV Titration 500 1000 Amount Piperacillin-Tazobactam 3 200 100 .375 gm In Sodium Chloride 0.9% 100 ml @ 25 mls/hr IVPB Q8HR ANA MARÍA Rx# :[id number] Sodium Chloride 0.9% 1, 300 900 000 ml @ 75 mls/hr IV . [id number] [facility] Rx#:[id number] Oral 650 240 Output: Urine 500 Other: Voiding Method Toilet Indwelling Catheter Indwelling Catheter # Voids 2 - Exam GENERAL DESCRIPTION: An elderly female lying in bed in no distress RESPIRATORY SYSTEM: Unlabored breathing , decreased breath sounds at bases HEART: S1 S2 regular rate and rhythm , ABDOMEN: Soft , no tenderness EXTREMITIES: No edema feet - Labs CBC & Chem 7: 04/15/24 04:14 04/15/24 04:14 Labs: Microbiology - Last 24 Hours (Table) 04/11/24 10:36 Urine Culture - Final Urine,Voided Pseudomonas aeruginosa Citrobacter freundii Assessment and Plan (1) Urinary tract infection Current Visit: Yes Status: Acute Code(s): N39.0 - URINARY TRACT INFECTION, SITE NOT SPECIFIED SNOMED Code(s): 49131036 Plan: 1patient presented to hospital with some lower abdominal discomfort positive UA with recent urine culture positive for drug-resistant Citrobacter and Pseudomonas aeruginosa concerning for catheter associated UTI, however repeat urine culture not showing Pseudomonas that is related to sensitive pathogen however Citrobacter did have a multidrug-resistant pattern 2patient did have a questionable Levaquin allergy however mention she has taken Cipro without any problem. 3patient did have ultrasound of the bladder kidney that was negative for any obstructive uropathy 4patient to continue with Zosyn as we do not have any oral option for Citrobacter will need a midline and a week of Zosyn on discharge Dictation was produced using [employer] dictation software. please excuse any grammatical, word or spelling errors. Time with Patient: Less than 30
--- NOTE | 2024-04-17 08:39 | P.PN ---
Subjective Progress Note Date: 04/17/24 The patient is a 68-year-old white female with fibromyalgia and history of bladder atony. She is going to have utero [place] conduit next month done by urology/colorectal surgeon. She came in feeling poorly low-grade fever but headache. Urinalysis shows significant urinary tract infection with positive lactate. She is appropriate admitted for antibiotic treatment. She has been taking Keflex faithfully. Past medical history includes significant degenerative disc disease of the lumbar spine. History of fibromyalgia history of C. difficile in the remote past. 04/13/2024 Patient seen and evaluated this morning laying in bed. Urine culture is still pending. Patient is complaining of some mild heartburn this morning. Her vitals are stable. 04/17/2024 Patient seen and evaluated sitting up in bed this morning. Urine culture has come back and patient has been seen and evaluated by infectious disease who are recommending IV antibiotics at discharge. Patient will need a midline placed. Patient also complaining of itchy eyes this morning. Objective - Vital Signs Vital signs: Vital Signs Temp 98.1 F 04/17/24 07:14 Pulse 73 04/17/24 07:14 Resp 16 04/17/24 07:14 BP 147/78 04/17/24 07:14 Pulse Ox 93 L 04/17/24 07:14 FiO2 Intake & Output 04/16/24 04/17/24 04/17/24 18:59 06:59 18:59 Output Total 1300 Balance -1300 Output: Urine 1300 Other: Voiding Method Indwelling Catheter Indwelling Catheter - Constitutional General appearance: Present: cooperative, no acute distress - EENT EENT Comment(s): erythema surrounding bilateral eyes Eyes: Present: PERRLA - Neck Neck: Present: normal ROM. Absent: lymphadenopathy, rigidity - Respiratory Respiratory: bilateral: CTA - Cardiovascular Rhythm: regular Heart sounds: normal: S1, S2 - Gastrointestinal General gastrointestinal: Present: soft. Absent: tenderness - Integumentary Integumentary: Present: normal, normal turgor - Musculoskeletal Musculoskeletal: Present: generalized weakness - Psychiatric Psychiatric: Present: A&O x's 3 - Labs CBC & Chem 7: 04/15/24 04:14 04/15/24 04:14 Labs: Microbiology - Last 24 Hours (Table) 04/11/24 10:36 Blood Culture - Final Blood 10/08/24 10:36 Urine Culture - Final Urine,Voided Pseudomonas aeruginosa Citrobacter freundii Assessment and Plan (1) Urinary tract infection Current Visit: Yes Status: Acute Code(s): N39.0 - URINARY TRACT INFECTION, SITE NOT SPECIFIED SNOMED Code(s): 21487190 (2) Abdominal pain Current Visit: No Status: Acute Code(s): R10.9 - UNSPECIFIED ABDOMINAL PAIN SNOMED Code(s): 18132688 (3) Atonic urinary bladder Current Visit: No Status: Acute Code(s): N31.2 - FLACCID NEUROPATHIC BLADD ER, NOT ELSEWHERE CLASSIFIED SNOMED Code(s): 920062130 (4) Back pain Current Visit: No Status: Acute Code(s): M54.9 - DORSALGIA, UNSPECIFIED SNOMED Code(s): 361531033 (5) Colostomy in place Current Visit: No Status: Acute Code(s): Z93.3 - COLOSTOMY STATUS SNOMED Code(s): 149047634 (6) DDD (degenerative disc disease), cervical Current Visit: No Status: Acute Code(s): M50.30 - OTHER CERVICAL DISC DEGENERATION, UNSP CERVICAL REGION SNOMED Code(s): 66220494 (7) Fibromyalgia Current Visit: No Status: Acute Code(s): M79.7 - FIBROMYALGIA SNOMED Code(s): 699180282 (8) History of lumbar fusion Current Visit: No Status: Acute Code(s): Z98.1 - ARTHRODESIS STATUS SNOMED Code(s): 54832245811086 (9) Hypothyroidism Current Visit: No Status: Acute Code(s): E03.9 - HYPOTHYROIDISM, UNSPECIFIED SNOMED Code(s): 09983890 (10) Seasonal allergies Current Visit: Yes Status: Acute Code(s): J30.2 - OTHER SEASONAL ALLERGIC RHINITIS SNOMED Code(s): 553376641 Plan: Continue IV antibiotics. Order midline placement. Work with care management to set up home IV antibiotics per Dr. Hunt's recommendations. Patient seen and evaluated by nurse practitioner, physician in agreement with plan.
[2024-04-17] MEDS: KETOTIFEN 0.025% OPHTH DROPS 5 ML BTL BOTH EYES SCH (09:15)
--- NOTE | 2024-04-18 08:40 | P.DS ---
Providers Date of admission: 04/11/24 12:20 Attending physician: Jaskaran Pressley Consults: 04/14/24 08:08 Consult Physician Routine Consulting Provider: Evelio Hunt Consult Reason/Comments: Complicated UTI Do you want consulting provider notified?: Yes Primary care physician: Jaskaran Pressley - Discharge Diagnosis(es) (1) Urinary tract infection Current Visit: Yes Status: Acute (2) Abdominal pain Current Visit: No Status: Acute (3) Atonic urinary bladder Current Visit: No Status: Acute (4) Back pain Current Visit: No Status: Acute (5) Colostomy in place Current Visit: No Status: Acute (6) DDD (degenerative disc disease), cervical Current Visit: No Status: Acute (7) Fibromyalgia Current Visit: No Status: Acute (8) History of lumbar fusion Current Visit: No Status: Acute (9) Hypothyroidism Current Visit: No Status: Acute Hospital Course: The patient was admitted with complicated UTI. Culture positive for Pseudomonas and Citrobacter. She will DCed on IV Zosyn for 7days. Tolerating diet. Mujltiple allergies. Patient Condition at Discharge: Fair Plan - Discharge Summary Discharge Rx Participant: Yes New Discharge Prescriptions: New RX: Gentamicin 0.3% Ophth Soln [Garamycin 0.3% Ophth Soln] 1 drops BOTH EYES Q6HR #5 ml RX: Piperacillin-Tazobactam [Zosyn] 3.375 gm IVPB Q8HR #21 each RX: Ketotifen 0.025% Ophth Soln [Zaditor] 1 drops BOTH EYES BID #5 ml Continue RX: Gabapentin 800 mg PO TID RX: Ibuprofen [Motrin] 800 mg PO TID-W/MEALS RX: Levothyroxine Sodium [Synthroid] 100 mcg PO DAILY RX: buPROPion HCL [Wellbutrin XL] 300 mg PO DAILY@0200 RX: Docusate [Colace] 100 mg PO TID RX: Meclizine [Antivert] 25 mg PO BID RX: Pantoprazole [Protonix] 40 mg PO DAILY RX: Fluticasone Nasal [place] [Flonase Nasal [place]] 1 - 2 spr EA NOSTRIL HS RX: Multivit-Min/Iron/Folic/Lutein [Centrum Silver Women Tablet] 1 tab PO DAILY RX: Cholecalciferol [Vitamin D3 (125 Mcg = 5000 Iu)] 125 mcg PO DAILY RX: Latanoprost [Latanoprost 0.005%] 1 drop BOTH EYES HS RX: Psyllium Husk [Metamucil] 0.4 gm PO DAILY RX: Albuterol Inhaler [Ventolin Hfa Inhaler] 2 puff INHALATION RT-QID PRN PRN Reason: shortness of breath RX: Lactulose 30 gm PO DAILY PRN PRN Reason: constipation RX: Sennosides [Senokot] 8.6 mg PO TID Allergy Relief (Unknown) 1 tab PO DAILY Super B Complex 1 tab PO DAILY RX: Oxybutynin ER [Ditropan XL] 10 mg PO DAILY RX: oxyCODONE HCL [oxyCODONE HCL (IR)] 15 mg PO HS RX: Wheat Dextrin [Benefiber] 1 gm PO BID RX: oxyCODONE HCL [oxyCODONE HCL (IR)] 15 mg PO TID PRN PRN Reason: Pain RX: DULoxetine HCL [Cymbalta] 30 mg PO DAILY Discontinued Cephalexin [Keflex] 500 mg PO Q12HR 7 Days #14 cap Discharge Medication List Gabapentin 800 mg PO TID 09/04/15 [History] Ibuprofen [Motrin] 800 mg PO TID-W/MEALS 06/30/16 [History] Levothyroxine Sodium [Synthroid] 100 mcg PO DAILY 06/30/16 [History] buPROPion HCL [Wellbutrin XL] 300 mg PO DAILY@0200 02/04/17 [History] Docusate [Colace] 100 mg PO TID 06/16/18 [History] Meclizine [Antivert] 25 mg PO BID 01/01/20 [History] Pantoprazole [Protonix] 40 mg PO DAILY 02/28/21 [History] Albuterol Inhaler [Ventolin Hfa Inhaler] 2 puff INHALATION RT-QID PRN 09/17/22 [History] Fluticasone Nasal [place] [Flonase Nasal [place]] 1 - 2 spr EA NOSTRIL HS 09/17/22 [History] Lactulose 30 gm PO DAILY PRN 09/17/22 [History] Multivit-Min/Iron/Folic/Lutein [Centrum Silver Women Tablet] 1 tab PO DAILY 02/03/23 [History] Sennosides [Senokot] 8.6 mg PO TID 02/03/23 [History] Allergy Relief (Unknown) 1 tab PO DAILY 12/30/23 [History] Cholecalciferol [Vitamin D3 (125 Mcg = 5000 Iu)] 125 mcg PO DAILY 12/30/23 [History] Latanoprost [Latanoprost 0.005%] 1 drop BOTH EYES HS 12/30/23 [History] Oxybutynin ER [Ditropan XL] 10 mg PO DAILY 12/30/23 [History] Super B Complex 1 tab PO DAILY 12/30/23 [History] Wheat Dextrin [Benefiber] 1 gm PO BID 12/30/23 [History] oxyCODONE HCL [oxyCODONE HCL (IR)] 15 mg PO HS 12/30/23 [History] DULoxetine HCL [Cymbalta] 30 mg PO DAILY 04/11/24 [History] Psyllium Husk [Metamucil] 0.4 gm PO DAILY 04/11/24 [History] oxyCODONE HCL [oxyCODONE HCL (IR)] 15 mg PO TID PRN 04/11/24 [History] Gentamicin 0.3% Ophth Soln [Garamycin 0.3% Ophth Soln] 1 drops BOTH EYES Q6HR #5 ml 04/18/24 [Rx] Ketotifen 0.025% Ophth Soln [Zaditor] 1 drops BOTH EYES BID #5 ml 04/18/24 [Rx] Piperacillin-Tazobactam [Zosyn] 3.375 gm IVPB Q8HR #21 each 04/18/24 [Rx] Follow up Appointment(s)/Referral(s): Jaskaran Pressley MD [Primary Care Provider] - 1 Week Discharge Disposition: HOME WITH HOME HEALTH SERVICES
[2024-04-18 08:43] VITALS: BMI 32.8
[2024-04-18 13:13] VITALS: BP 144/79; PULSE 80; RESP 14; TEMP 98.5
--- NOTE | 2024-04-18 15:43 | P.PN ---
Subjective Progress Note Date: 04/17/24 Principal diagnosis: Reason for follow-up is a catheter associated UTI Patient is a 68-year-old female with a past medical history significant for reflux fibromyalgia pneumonia epilepsy diverticulitis did have a colostomy and a suprapubic catheter admitted to hospital concerning for catheter associated UTI. On today's evaluation that is 04/17/2024, the patient continues to be afebrile, the patient is on room air and breathing comfortably, the Pt denies having any c hest pain or cough, the patient denies having any abdominal pain no vomiting or any diarrhea has been reported by the nursing staff, mention improvement in her urinary symptoms. No new lab has been obtained today Objective - Vital Signs Vital signs: Vital Signs Temp 98.1 F 04/17/24 07:14 Pulse 73 04/17/24 07:14 Resp 16 04/17/24 07:14 BP 147/78 04/17/24 07:14 Pulse Ox 93 L 04/17/24 07:14 FiO2 Intake & Output 04/16/24 04/17/24 04/17/24 18:59 06:59 18:59 Output Total 1300 Balance -1300 Output: Urine 1300 Other: Voiding Method Indwelling Catheter Indwelling Catheter - Exam GENERAL DESCRIPTION: An elderly female lying in bed in no distress RESPIRATORY SYSTEM: Unlabored breathing , decreased breath sounds at bases HEART: S1 S2 regular rate and rhythm , ABDOMEN: Soft , no tenderness EXTREMITIES: No edema feet - Labs CBC & Chem 7: 04/15/24 04:14 04/15/24 04:14 Labs: Microbiology - Last 24 Hours (Table) 04/11/24 10:36 Blood Culture - Final Blood 04/11/24 10:36 Urine Culture - Final Urine,Voided Pseudomonas aeruginosa Citrobacter freundii Assessment and Plan (1) Urinary tract infection Current Visit: Yes Status: Acute Code(s): N39.0 - URINARY TRACT INFECTION, SITE NOT SPECIFIED SNOMED Code(s): 87772614 Plan: 1patient presented to hospital with some lower abdominal discomfort positive UA with recent urine culture positive for drug-resistant Citrobacter and Pseudomonas aeruginosa concerning for catheter associated UTI, however repeat urine culture not showing Pseudomonas that is related to sensitive pathogen however Citrobacter did have a multidrug-resistant pattern 2patient did have a questionable Levaquin allergy however mention she has taken Cipro without any problem. 3patient did have ultrasound of the bladder kidney that was negative for any obstructive uropathy 4patient did get a midline she is currently waiting for outpatient negative me dical regimen, to continue with Zosyn x 7 days on discharge Dictation was produced using [employer] dictation software. please excuse any grammatical, word or spelling errors. Time with Patient: Less than 30
--- NOTE | 2024-04-18 15:44 | P.PN ---
Subjective Progress Note Date: 04/18/24 Principal diagnosis: Reason for follow-up is a catheter associated UTI Patient is a 68-year-old female with a past medical history significant for reflux fibromyalgia pneumonia epilepsy diverticulitis did have a colostomy and a suprapubic catheter admitted to hospital concerning for catheter associated UTI. On today's evaluation that is 04/18/2024, Patient is afebrile patient is currently on room air and denies having any shortness of breath, the patient denies any chest pain or cough, the patient denies any nausea vomiting did not have any abdominal pain and no diarrhea patient mention did have improvement of urinary symptoms. No lab draw today Objective - Vital Signs Vital signs: Vital Signs Temp 98.8 F 04/18/24 07:21 Pulse 77 04/18/24 07:21 Resp 15 04/18/24 07:21 BP 146/78 04/18/24 07:21 Pulse Ox 92 L 04/18/24 07:21 FiO2 Intake & Output 04/17/24 04/18/24 04/18/24 18:59 06:59 18:59 Output Total 600 1600 Balance -600 -1600 Weight 83.915 kg Output: Urine 600 1600 Other: Voiding Method Indwelling Catheter Indwelling Catheter Indwelling Catheter - Exam GENERAL DESCRIPTION: An elderly female lying in bed in no distress RESPIRATORY SYSTEM: Unlabored breathing , decreased breath sounds at bases HEART: S1 S2 regular rate and rhythm , ABDOMEN: Soft , no tenderness EXTREMITIES: No edema feet - Labs CBC & Chem 7: 04/15/24 04:14 04/15/24 04:14 Assessment and Plan (1) Urinary tract infection Current Visit: Yes Status: Acute Code(s): N39.0 - URINARY TRACT INFECTION, SITE NOT SPECIFIED SNOMED Code(s): 08397364 Plan: 1patient presented to hospital with some lower abdominal discomfort positive UA with recent urine culture positive for drug-resistant Citrobacter and Pseudomo paul aeruginosa concerning for catheter associated UTI, however repeat urine culture not showing Pseudomonas that is related to sensitive pathogen however Citrobacter did have a multidrug-resistant pattern 2patient did have ultrasound of the bladder kidney that was negative for any obstructive uropathy 3patient did get a midline outpatient IV Zosyn has been arranged for the patient which she will continue for about a week on discharge and close outpatient follow-up Dictation was produced using [employer] software. please excuse any grammatical, word or spelling errors. Time with Patient: Less than 30
== END 2024-04-18 16:41 | disposition home health service (06) | DRG 699 ==
LOC: EC 10:02 → 5NMEDONC 12:20 → 4SSUR 17:48
PROVIDERS: ADMIT Family Medicine; ATTEND Family Medicine
PROC: 05HC33Z Insertion of Infusion Device into Left Basilic Vein, Percutaneous Approach (ICD-10-PCS; principal; 2024-04-18)
DX: T83.518A Infection and inflammatory reaction due to other urinary catheter, initial encounter (principal); N39.0 Urinary tract infection, site not specified; Z16.24 Resistance to multiple antibiotics; E03.9 Hypothyroidism, unspecified; F32.A Depression, unspecified; G40.909 Epilepsy, unspecified, not intractable, without status epilepticus; G89.4 Chronic pain syndrome; H10.9 Unspecified conjunctivitis; J30.2 Other seasonal allergic rhinitis; M19.90 Unspecified osteoarthritis, unspecified site; M50.30 Other cervical disc degeneration, unspecified cervical region; M79.7 Fibromyalgia; N31.2 Flaccid neuropathic bladder, not elsewhere classified; G57.93 Unspecified mononeuropathy of bilateral lower limbs; K21.9 Gastro-esophageal reflux disease without esophagitis; B96.89 Other specified bacterial agents as the cause of diseases classified elsewhere; Y84.6 Urinary catheterization as the cause of abnormal reaction of the patient, or of later complication, without mention of misadventure at the time of the procedure; Z96.653 Presence of artificial knee joint, bilateral; Z96.642 Presence of left artificial hip joint; Z93.3 Colostomy status; Z79.890 Hormone replacement therapy; Z79.899 Other long term (current) drug therapy; Z79.1 Long term (current) use of non-steroidal anti-inflammatories (NSAID); Z87.440 Personal history of urinary (tract) infections; Z90.710 Acquired absence of both cervix and uterus; Z98.1 Arthrodesis status; Z88.5 Allergy status to narcotic agent; Z88.8 Allergy status to other drugs, medicaments and biological substances; Z88.1 Allergy status to other antibiotic agents; Z91.040 Latex allergy status
CPT/HCPCS: 36410; 36415; 76770; 76937; 80053; 81001; 83605; 85025; 85027; 87040; 87077; 87086; 87186; 96361; 96374; 99285

== ENCOUNTER 2024-06-19 09:08 | Emergency (ER) | payer MEDICARE, OTHER ==
[2024-06-19 09:21] VITALS: RESP 18; TEMP 98.1
[2024-06-19 09:59] LABS: Basophils % (A) 0 %; Eosinophils # (A) 0.4 k/uL (0-0.7); Eosinophils % (A) 5 %; HCT 36.6 % (34.0-46.0); HGB 11.6 gm/dL (11.4-16.0); Hypochromasia Moderate; Lymphocytes # (A) 2.3 k/uL (1.0-4.8); Lymphocytes % (A) 27 %; MCH 29.4 pg (25.0-35.0); MCHC 31.7 g/dL (31.0-37.0); MCV 92.7 fL (80.0-100.0); Mean Platelet Volume 8.4; Monocytes # (A) 0.5 k/uL (0-1.0); Monocytes % (A) 6 %; Neutrophils # (A) 5.2 k/uL (1.3-7.7); Neutrophils % (A) 61 %; Platelet Count 313 k/uL (150-450); RBC 3.95 m/uL (3.80-5.40); RDW 15.1 % (11.5-15.5); WBC 8.6 k/uL (3.8-10.6)
[2024-06-19] MEDS: HYDROmorphone 0.5 MG/0.5 ML SYRINGE IVP STA (10:12)
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
[2024-06-19 10:15] LABS: African American GFR (CKD) >90 (>60 ml/min/1.73 sqM); Anion Gap 8 mmol/L; Blood Urea Nitrogen 12 mg/dL (7-17); Calcium 9.9 mg/dL (8.4-10.2); Carbon Dioxide 21 mmol/L (22-30); Chloride 108 mmol/L (98-107); Glucose 108 mg/dL (74-99); Non-African American GFR(CKD) 80 (>60 ml/min/1.73 sqM); Potassium 3.8 mmol/L (3.5-5.1); Sodium 137 mmol/L (137-145)
[2024-06-19 10:39] LABS: Appearance,Urine Cloudy (Clear); Bilirubin,Urine Negative (Negative); Blood,Urine Large (Negative); Calcium Oxalate Crystals,Urine Occasional /hpf; Color,Urine Red; Glucose,Urine (UA) Negative (Negative); Ketones,Urine Trace (Negative); Leukocyte Esterase,Urine Large (Negative); Mucus,Urine Few /hpf; Nitrite,Urine Negative (Negative); Protein,Urine 1+ (Negative); RBC,Urine >182 /hpf (0-5); Specific Gravity,Urine 1.028 (1.001-1.035); Urobilinogen,Urine <2.0 mg/dL (<2.0); WBC,Urine 21 /hpf (0-5)
--- NOTE | 2024-06-19 11:05 | CT ---
EXAMINATION TYPE: CT abdomen pelvis w con CT DLP: 1159.2 mGycm, Automated exposure control for dose reduction was used. DATE OF EXAM: 06/19/2024 10:51 AM COMPARISON: CT abdomen pelvis 12/30/2023, 02/11/2021 CLINICAL INDICATION:Female, 69 years old with history of post operative pain; Recent urostomy and ile ostomy with multiple infections TECHNIQUE: Standard CT of the abdomen and pelvis following the administration of 100 cc of Isovue 3 00 IV contrast material. Coronal and sagittal reformats were performed. FINDINGS: LOWER CHEST: Minimal posterior dependent subsegmental atelectasis is noted. Right lower lobe calcifie d granuloma. Partial visualization of bilateral breast prosthesis. ABDOMEN LIVER: Unremarkable GALLBLADDER AND BILE DUCTS: The gallbladder is surgically absent. PANCREAS: Unremarkable. SPLEEN: Couple of calcified granulomas identified. ADRENAL GLANDS: Unremarkable. KIDNEYS AND URETERS: No hydronephrosis. The kidneys enhance symmetrically. Bilateral ureteral stents identified. Left anterior abdomen urostomy and a right-sided ileostomy. PELVIS BLADDER: Surgical absent. REPRODUCTIVE: Unremarkable. ABDOMEN & PELVIS STOMACH AND BOWEL: Stomach and duodenum are unremarkable. Extensive postsurgical change of the bowel with left anterior abdomen urostomy and a right-sided ileostomy with surrounding stranding changes. . No definitive organized drainable fluid collection. Evaluation of the bowel is limited due to lack o f oral contrast. No evidence of bowel obstruction. PERITONEUM: No evidence of pneumoperitoneum or free fluid. VASCULATURE: No evidence of aortic aneurysm. Pelvic phleboliths. MUSCULOSKELETAL: No acute osseous abnormalities. Postsurgical changes from left total hip arthroplast y. Anchors are identified within the bilateral pubic symphysis. Postsurgical changes of the lumbosacr al spine with bilateral pedicular screws and rods involving L2-S1. Vertebral augmentation changes inv olving the L1 vertebral body. Multilevel degenerative disc disease. LYMPH NODES: No evidence for lymphadenopathy. SOFT TISSUE/ABDOMINAL WALL: Postsurgical changes of the midline anterior abdominal wall. Left anterio r abdomen urostomy and a right-sided ileostomy. No organized fluid collection definitively identified . IMPRESSION: 1. Interval postsurgical changes from urostomy and ileostomy without definitive CT evidence for compl ication. No evidence for bowel obstruction. No organized fluid collections. 2. Bilateral ureteral stents without evidence for hydronephrosis. [facility], , 06/19/2024 11:03 AM
[2024-06-19] MEDS: HYDROmorphone 1 MG/ML 1 ML SYRINGE IVP STA (12:46)
[2024-06-19 13:07] VITALS: BP 163/85; PULSE 92
== END 2024-06-19 13:06 | disposition home or self-care (01) ==
LOC: EC 09:08
DX: R31.9 Hematuria, unspecified (principal); R10.9 Unspecified abdominal pain; Z93.6 Other artificial openings of urinary tract status; Z88.1 Allergy status to other antibiotic agents; Z88.8 Allergy status to other drugs, medicaments and biological substances; Z91.048 Other nonmedicinal substance allergy status; Z91.040 Latex allergy status
CPT/HCPCS: 36415; 80048; 85025; 81001; 74177; 99284; 96374; 96376; J1171 ×2; Q9967

== ENCOUNTER 2024-10-10 20:55 | Emergency (ER) | payer MEDICARE, OTHER ==
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
[2024-10-10 22:45] VITALS: RESP 19; TEMP 98.3
[2024-10-10] MEDS: HYDROmorphone 0.5 MG/0.5 ML SYRINGE IM STA ×2 (22:46→23:53)
[2024-10-10] MEDS: KETOROLAC 15 MG/ML 1 ML VIAL IM STA ×2 (22:47→23:51)
--- NOTE | 2024-10-10 23:11 | XR ---
EXAMINATION TYPE: XR chest 1V DATE OF EXAM: 10/10/2024 11:04 PM COMPARISON: Chest radiographs from 03/29/2022 TECHNIQUE: XR chest 1V Frontal view of the chest. CLINICAL INDICATION:Female, 69 years old with history of Fall, right shoulder pain - cannot move; FINDINGS: Limited examination due to underpenetration. Lungs/Pleura: There is no evidence of pleural effusion, focal consolidation, or pneumothorax. Pulmonary vascularity: Unremarkable. Heart/mediastinum: Cardiomediastinal silhouette is unremarkable. Musculoskeletal: No acute osseous pathology. Cervical fusion hardware. IMPRESSION: No acute cardiopulmonary disease/process. [facility], , 10/10/2024 11:09 PM
--- NOTE | 2024-10-10 23:13 | XR ---
EXAMINATION TYPE: XR clavicle RT DATE OF EXAM: 10/10/2024 11:04 PM INDICATION: Patient age:Female; 69 years old; Reason for study: Fall, right shoulder pain - cannot move; PHH. pain COMPARISON: Bilateral shoulder radiograph and chest radiograph the same date. TECHNIQUE: AP and cephalic tilt views were obtained of the right clavicle. FINDINGS: No evidence of acute pathology, joint dislocation or soft tissue swelling. AC joint arthropathy with joint space narrowing. Partial visualization of cervical fusion hardware. IMPRESSION: 1. No acute fracture or dislocation. 2. Mild right AC joint arthropathy. [facility], , 10/10/2024 11:10 PM
--- NOTE | 2024-10-10 23:15 | XR ---
EXAMINATION TYPE: XR shoulder limited bilateral DATE OF EXAM: 10/10/2024 11:04 PM INDICATION: Patient age:Female; 69 years old; Reason for study: Fall, right shoulder pain - cannot move; pain COMPARISON: Chest radiograph and right clavicle radiograph the same day. TECHNIQUE: Both shoulders were examined in AP internally rotated and scapular Y projections. . FINDINGS: No evidence of acute osseous pathology, joint dislocation, or soft tissue swelling. Bilateral AC join t arthropathy with joint space narrowing and hypertrophy. Partial visualization of cervical fusion allison rdware. The remaining portions of the visualized chest are unremarkable. IMPRESSION: 1. No acute osseous pathology. 2. Mild bilateral AC joint arthropathy. [facility], , 10/10/2024 11:13 PM
--- NOTE | 2024-10-10 23:25 | XR ---
EXAMINATION TYPE: XR Hip Complete RT DATE OF EXAM: 10/10/2024 11:06 PM INDICATION: Patient age:Female; 69 years old; Reason for study: Fall, right shoulder pain - cannot move; PHH. pain COMPARISON: Pelvic radiograph 12/20/2023, CT scan of pelvis 12/30/2023, 06/19/2024 TECHNIQUE: The right hip was examined in the frontal and lateral projections. FINDINGS: No evidence of any acute osseous pathology, joint dislocation, or soft tissue swelling. Rig ht-sided pelvic phleboliths. IMPRESSION: No acute osseous pathology. [facility], , 10/10/2024 11:22 PM
[2024-10-10 23:50] VITALS: BP 112/55; PULSE 88
[2024-10-10] MEDS: ONDANSETRON 4 MG/2 ML VIAL IM STA (23:52)
--- NOTE | 2024-10-11 00:02 | CT ---
EXAM: CT Head Without Intravenous Contrast CLINICAL HISTORY: ITS.REASON CT Reason: pain TECHNIQUE: Axial computed tomography images of the head/brain without intravenous contrast. CTDI is 45.2 mGy and DLP is 1074 mGy-cm. This CT exam was performed using one or more of the following dose reduction techniques: automated exposure control, adjustment of the mA and/or kV according to patient size, and/or use of iterative reconstruction technique. COMPARISON: No relevant prior studies available. FINDINGS: Brain: The territorial casanova-white matter differentiation is maintained throughout. No acute intracranial hemorrhage. No midline shift or mass effect. Ventricles: The ventricles and sulci are commensurate with age. Bones/joints: Unremarkable. No acute fracture. Soft tissues: Unremarkable. Sinuses: Unremarkable as visualized. No acute sinusitis. Mastoid air cells: Unremarkable as visualized. No mastoid effusion. IMPRESSION: No acute intracranial hemorrhage. No midline shift or mass effect. EXAM: CT Cervical Spine Without Intravenous Contrast CLINICAL HISTORY: ITS.REASON CT Reason: pain TECHNIQUE: Axial computed tomography images of the cervical spine without intravenous contrast. CTDI is 15.2 mGy and DLP is 486.7 mGy-cm. This CT exam was performed using one or more of the following dose reduction techniques: automated exposure control, adjustment of the mA and/or kV according to patient size, and/or use of iterative reconstruction technique. COMPARISON: No relevant prior studies available. FINDINGS: The vertebral body heights are maintained. The craniocervical junction is intact. The atlanto-dens interval is maintained. The dens is intact. There is no spondylolisthesis. Multilevel cervical spondylosis and degenerative disc disease. Straightening of the cervical lordosis. The unenhanced neck soft tissues are grossly unremarkable. The visualized lung apices are grossly clear. IMPRESSION: No acute fracture or subluxation of the cervical spine.
[2024-10-11] MEDS: ACET/COD 300 MG/30 MG STARTER PACK 6 TAB BTL PO STA (00:32)
== END 2024-10-11 00:49 | disposition home or self-care (01) ==
LOC: EC 20:55
DX: M75.101 Unspecified rotator cuff tear or rupture of right shoulder, not specified as traumatic (principal); M25.512 Pain in left shoulder; Z91.040 Latex allergy status; Z91.048 Other nonmedicinal substance allergy status; Z88.1 Allergy status to other antibiotic agents; Z88.6 Allergy status to analgesic agent; Z88.8 Allergy status to other drugs, medicaments and biological substances; W01.10XA Fall on same level from slipping, tripping and stumbling with subsequent striking against unspecified object, initial encounter
CPT/HCPCS: 73020; 73502; 73000; 71045; 72125; 70450; 99284; 96372; J2405; J1885; J1171

== ENCOUNTER 2024-11-09 09:56 | Inpatient (IN) | payer MEDICARE, OTHER ==
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
[2024-11-09] MEDS: HYDROmorphone 1 MG/ML 1 ML SYRINGE IVP STA ×2 (10:57→12:42)
--- NOTE | 2024-11-09 11:54 | XR ---
EXAMINATION TYPE: XR chest 1V DATE OF EXAM: 11/09/2024 11:50 AM COMPARISON: Chest radiographs from 10/10/2024 TECHNIQUE: XR chest 1V Portable AP radiograph of the chest. CLINICAL INDICATION:Female, 69 years old with history of Cough/pain; FINDINGS: Limited examination due to patient's body habitus. Lungs/Pleura: There is no evidence of pleural effusion, focal consolidation, or pneumothorax. Pulmonary vascularity: Unremarkable. Heart/mediastinum: Cardiomediastinal silhouette is enlarged and stable. Musculoskeletal: No acute osseous pathology. Partial visualization of cervical fusion hardware. IMPRESSION: 1. No acute cardiopulmonary disease/process. 2. Cardiomegaly. [facility], , 11/09/2024 11:52 AM
--- NOTE | 2024-11-09 11:59 | CT ---
EXAMINATION TYPE: CT hip RT wo con CT DLP: 658.1 mGycm, Automated exposure control for dose reduction was used. DATE OF EXAM: 11/09/2024 11:49 AM COMPARISON: Right hip radiograph 10/10/2024 CLINICAL INDICATION:Female, 69 years old with history of hip fracture; PHH, RT HIP FX TECHNIQUE: Axial images were obtained of the right hip without the use of IV contrast. Additional co felicity and sagittal reformatted images and soft tissue and bone window were obtained for review. 3-D r econstruction was created on a separate workstation. FINDINGS: Acute nondisplaced subcapital fracture with sclerosis of the right proximal femur. Osteoart hritic changes of the right hip with medial joint space narrowing and marginal osteophytosis of the f emoral head. No surrounding soft tissue edema or joint effusion. No dislocation. Post visualization of lumbosacral fusion hardware. Degenerative changes of the right SI joint. Surgic al anchors within the bilateral pubic symphysis. Degenerative changes of the pubic symphysis. Multipl e pelvic phleboliths. Presacral edema identified. Postsurgical changes from urostomy and ileostomy. IMPRESSION: Acute nondisplaced subcapital fracture of the right proximal femur. [facility], , 11/09/2024 11:56 AM
[2024-11-09] MEDS ORDERED: NALOXONE 0.4 MG/ML 1 ML VIAL IV PRN ×2 (12:05→19:41)
[2024-11-09] MEDS ORDERED: HYDROmorphone 1 MG/ML 1 ML SYRINGE IVP PRN (12:05)
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
[2024-11-09 13:03] LABS: Basophils # (A) 0.02 10*3/uL (0.00-0.10); Basophils % (A) 0.2 %; Eosinophils # (A) 0.23 10*3/uL (0.04-0.35); Eosinophils % (A) 2.3 %; HCT 33.2 % (37.2-46.3); HGB 10.5 g/dL (12.0-15.0); Lymphocytes # (A) 2.83 10*3/uL (0.90-5.00); Lymphocytes % (A) 28.1 %; MCH 27.6 pg (27.0-32.0); MCHC 31.6 g/dL (32.0-37.0); MCV 87.1 fL (80.0-97.0); Mean Platelet Volume 10.2 fL (9.5-12.2); Monocytes # (A) 0.75 10*3/uL (0.20-1.00); Monocytes % (A) 7.4 %; Neutrophils # (A) 6.12 10*3/uL (1.80-7.70); Neutrophils % (A) 60.8 %; Platelet Count 332 10*3/uL (140-440); RBC 3.81 10*6/uL (4.10-5.20); RDW 14.3 % (11.5-14.5); WBC 10.07 10*3/uL (4.50-10.00)
[2024-11-09 13:35] LABS: ALT 25 U/L (4-34); AST 28 U/L (14-36); African American GFR (CKD) >90 (>60 ml/min/1.73 sqM); Albumin 3.5 g/dL (3.5-5.0); Alkaline Phosphatase 174 U/L (38-126); Anion Gap 11 mmol/L; Blood Urea Nitrogen 13 mg/dL (7-17); Calcium 10.6 mg/dL (8.4-10.2); Carbon Dioxide 22 mmol/L (22-30); Chloride 109 mmol/L (98-107); Glucose 84 mg/dL (74-99); Non-African American GFR(CKD) 86 (>60 ml/min/1.73 sqM); Potassium 3.9 mmol/L (3.5-5.1); Sodium 142 mmol/L (137-145); Total Bilirubin 0.4 mg/dL (0.2-1.3); Total Protein 6.6 g/dL (6.3-8.2)
[2024-11-09] MEDS ORDERED: ONDANSETRON ODT 4 MG TAB PO PRN (14:34)
[2024-11-09 14:55] LABS: Prothrombin Time 11.1 sec (10.0-12.5)
[2024-11-09] MEDS: GABAPENTIN 400 MG CAP PO SCH (16:49)
[2024-11-09] MEDS ORDERED: TRANEXAMIC 1,000 MG/100ML-NACL PREMIX BAG ONE (17:00)
[2024-11-09] MEDS ORDERED: LIDOCAINE 1% INJ 10MG/ML (20 ML MDV) ONE (17:00)
[2024-11-09] MEDS ORDERED: KETOROLAC 15 MG/ML 1 ML VIAL ONE (17:00)
[2024-11-09] MEDS ORDERED: NEOSTIGMINE 1 MG/ML 10 ML VIAL ONE (17:00)
[2024-11-09] MEDS: SODIUM CHLORIDE 0.9% 1,000 ML IV SCH ×2 (17:00→20:56)
[2024-11-09] MEDS ORDERED: HYDROmorphone (PF) 1 MG/ML ONE (17:00)
[2024-11-09] MEDS ORDERED: SUCCINYLCHOLINE CHLORIDE 200 MG/10 ML VIAL IV ONE (17:00)
[2024-11-09] MEDS ORDERED: fentaNYL (PF) 50 MCG/ML 2 ML AMP ONE (17:00)
[2024-11-09] MEDS ORDERED: GLYCOPYRROLATE 0.2 MG/ML 2 ML VIAL ONE (17:00)
[2024-11-09] MEDS ORDERED: PROPOFOL 10 MG/ML 20 ML VIAL IV ONE (17:00)
[2024-11-09] MEDS ORDERED: ROCURONIUM 10 MG/ML (5 ML VIAL) IV ONE (17:00)
[2024-11-09] MEDS ORDERED: PHENYLEPHRINE 10 MG/ML VIAL ONE (17:00)
[2024-11-09] MEDS: LACTATED RINGERS 1,000 ML IV ONE ×2 (17:04→19:12)
[2024-11-09] MEDS: SODIUM CHLORIDE 0.9% 100 ML with ceFAZolin 2,000 MG IV ONE (17:04)
[2024-11-09] MEDS: ROPIVACAINE/EPI/CLONIDINE/KET 50 ML SYRINGE MISCELLANE PRN (17:52)
[2024-11-09] MEDS: TOBRAMYCIN SULFATE 1.2 GM VIAL MISCELLANE ONE (18:52)
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
[2024-11-09] MEDS ORDERED: MAGNESIUM HYDROXIDE 2,400 MG/30 ML CUP PO PRN (19:41)
[2024-11-09] MEDS ORDERED: HYDROmorphone 0.5 MG/0.5 ML SYRINGE IVP PRN ×2 (19:41)
[2024-11-09] MEDS ORDERED: ONDANSETRON 4 MG/2 ML VIAL IVP PRN (19:41)
[2024-11-09] MEDS ORDERED: TEMAZEPAM 15 MG CAP PO PRN (19:41)
--- NOTE | 2024-11-09 21:22 | FL ---
Fluoroscopy INDICATION: Pain FINDINGS: Fluoroscopy time: 29 seconds. Total dose area product (DAP) in uGy*m?, mGy*cm? (or similar): 2.3983 Images obtained: 6. Images document right hip prosthesis placement IMPRESSION: 1. Documentation of fluoroscopy. [facility], Workstation: [facility], 11/09/2024 9:19 PM
[2024-11-09] MEDS: SENNOSIDES-DOCUSATE SODIUM 1 EACH TAB PO SCH (22:01)
[2024-11-09] MEDS: DULoxetine HCL 60 MG CAPSULE.DR PO SCH (22:01)
[2024-11-09] MEDS: MECLIZINE 25 MG TAB PO SCH (22:01)
[2024-11-09] MEDS: ATORVASTATIN 40 MG TAB PO SCH (22:01)
[2024-11-09] MEDS: ASPIRIN 81 MG PO SCH (22:01)
[2024-11-09] MEDS: HYDROcodone/APAP 5-325MG 1 EACH TAB PO PRN (22:02)
[2024-11-10] MEDS: ceFAZolin 2 GM in DEXTROSE 5% IN WATER 50 ML IVPB SCH (00:17)
[2024-11-10] MEDS: HYDROmorphone 0.5 MG/0.5 ML SYRINGE IVP PRN (04:47)
[2024-11-10] MEDS: diazePAM 5 MG TAB PO PRN (04:48)
[2024-11-10] MEDS: PANTOPRAZOLE 40 MG TABLET PO SCH (06:12)
[2024-11-10] MEDS: LEVOTHYROXINE 100 MCG TAB PO SCH (06:12)
--- NOTE | 2024-11-10 08:03 | XR ---
EXAMINATION TYPE: XR Hip Limited RT Intraoperative/procedural fluoroscopic services were provided. CLINICAL INDICATION:Female, 69 years old with history of RT HIP HEMIARTHROPLASTY; , [facility] FINDINGS: Fluoroscopic images demonstrating right hip hemiarthroplasty. However appears intact with appropriate alignment. Prior left arthroplasty changes and partial visualization of lumbosacral fusion hardware. No radiographic evidence for complication. Total fluoroscopy time is 42.9 seconds. DAP: 2.3983 Gycm2 Please see the operative/procedural note for further details. [facility], , 11/10/2024 8:00 AM
[2024-11-10 08:19] LABS: Basophils # (A) 0.03 X 10*3/uL (0.00-0.10); Basophils % (A) 0.2 %; Eosinophils # (A) 0.04 X 10*3/uL (0.04-0.35); Eosinophils % (A) 0.3 %; HCT 27.7 % (37.2-46.3); HGB 8.3 g/dL (12.0-15.0); Lymphocytes # (A) 1.85 X 10*3/uL (0.90-5.00); Lymphocytes % (A) 14.8 %; MCV 90.2 FL (80.0-97.0); Mean Platelet Volume 10.3 FL (9.5-12.2); Monocytes # (A) 0.91 X 10*3/uL (0.20-1.00); Monocytes % (A) 7.3 %; NRBC Per 100 WBC 0 X 10*3/uL (0.00-0.01); Neutrophils # (A) 9.46 X 10*3/uL (1.80-7.70); Platelet Count 285 X 10*3/uL (140-440); RBC 3.07 X 10*6/uL (4.10-5.20); RDW 14.6 % (11.5-14.5); WBC 12.46 X 10*3/uL (4.50-10.00)
[2024-11-10 08:26] LABS: ALT 27 U/L (8-44); AST 45 U/L (13-35); Albumin 2.9 g/dL (3.8-4.9); Albumin/Globulin Ratio 1.32 Ratio (1.60-3.17); Alkaline Phosphatase 148 U/L (41-126); BUN/Creat Ratio 19.71 Ratio (12.00-20.00); Blood Urea Nitrogen 13.8 mg/dL (9.0-27.0); Calcium 8.9 mg/dL (8.7-10.3); Carbon Dioxide 19.6 mmol/L (21.6-31.8); Chloride 112 mmol/L (96-109); Globulin 2.2 g/dL (1.6-3.3); Glucose 105 mg/dL (70-110); Magnesium 1.9 mg/dL (1.5-2.4); Potassium 3.9 mmol/L (3.5-5.5); Sodium 142 mmol/L (135-145); Total Bilirubin <0.2 mg/dL (0.3-1.2); Total Protein 5.1 g/dL (6.2-8.2)
[2024-11-10] MEDS ORDERED: NON FORMULARY DRUG (Lactose-Reduced Food [Ensure Plus] 237 ML Ml) PO SCH (09:00)
[2024-11-10] MEDS: FAMOTIDINE 20 MG TAB PO SCH (09:50)
[2024-11-10] MEDS: MULTIVITAMINS, THERA 1 EACH TAB PO SCH (09:50)
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
[2024-11-10] MEDS: HYDROcodone/APAP 10-325MG 1 EACH TAB PO PRN (15:27)
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
[2024-11-10] MEDS: SODIUM CHLORIDE 0.9% 1,000 ML IV ONE (22:30)
[2024-11-11] MEDS: SODIUM CHLORIDE 0.9% 500 ML 500 ML IV ONE (00:44)
[2024-11-11 00:58] LABS: Basophils # (A) 0.03 10*3/uL (0.00-0.10); Basophils % (A) 0.2 %; Eosinophils # (A) 0.01 10*3/uL (0.04-0.35); Eosinophils % (A) 0.1 %; HCT 24.8 % (37.2-46.3); Lymphocytes # (A) 1.99 10*3/uL (0.90-5.00); Lymphocytes % (A) 15.4 %; MCH 27.7 pg (27.0-32.0); MCHC 30.6 g/dL (32.0-37.0); MCV 90.5 fL (80.0-97.0); Mean Platelet Volume 10.4 fL (9.5-12.2); Monocytes # (A) 1.19 10*3/uL (0.20-1.00); Monocytes % (A) 9.2 %; Neutrophils # (A) 9.63 10*3/uL (1.80-7.70); Neutrophils % (A) 74.4 %; Platelet Count 238 10*3/uL (140-440); RBC 2.74 10*6/uL (4.10-5.20); RDW 14.6 % (11.5-14.5); WBC 12.94 10*3/uL (4.50-10.00)
[2024-11-11 01:00] LABS: HGB 7.6 g/dL (12.0-15.0)
[2024-11-11] MEDS: hydrOXYzine pamoate 25 MG CAP PO PRN (01:23)
--- NOTE | 2024-11-11 08:59 | P.PN ---
Subjective The patient is doing relatively well this morning. She continues to have pain as expected in her right hip. Per nursing she was transfused 1 unit of packed red cells yesterday. The patient is complaining of pain in her right hip this morning. Objective - Vital Signs Vital signs: Vital Signs Temp 98.5 F 11/11/24 06:37 Pulse 86 11/11/24 06:37 Resp 20 11/11/24 06:37 BP 118/63 11/11/24 06:37 Pulse Ox 99 11/11/24 06:37 FiO2 Intake & Output 11/10/24 11/11/24 11/11/24 18:59 06:59 18:59 Intake Total 850 Output Total 500 1425 Balance -500 -575 Intake: Oral 540 Blood Product 310 Rc As-1 Unit 310 [id number] Output: Urine 500 1425 Other: Voiding Method Ileal Conduit (Left) Ileal Conduit (Left) # Bowel Movements 3 - Exam The patient is sleeping in bed. She awakens when stimulated and will answer questions. A focused exam of the right hip was conducted. There is an incisional wound VAC with good seal. There is moderate swelling consistent with surgery. Femoral nerve function is intact. She is able to actively plantarflex and dorsiflex her ankle and her toes. - Labs CBC & Chem 7: 11/11/24 00:23 11/10/24 05:11 Labs: Abnormal Lab Results - Last 24 Hours (Table) 11/09/24 11/09/24 11/09/24 Range/Units 12:43 12:43 12:43 WBC 10.07 H (4.50-10.00) 10*3/uL RBC 3.81 L (4.10-5.20) 10*6/uL Hgb 10.5 L (12.0-15.0) g/dL Hct 33.2 L (37.2-46.3) % MCHC 31.6 L (32.0-37.0) g/dL RDW (11.5-14.5) % Immature Gran # 0.12 H (0.00-0.04) 10*3/uL Neutrophils # (1.80-7.70) 10*3/uL Monocytes # (0.20-1.00) 10*3/uL Eosinophils # (0.04-0.35) 10*3/uL Chloride 109 H (98-107) mmol/L Calcium 10.6 H (8.4-10.2) mg/dL Alkaline Phosphatase 174 H (38-126) U/L Crossmatch See Detail 11/11/24 Range/Units 00:23 WBC 12.94 H (4.50-10.00) 10*3/uL RBC 2.74 L (4.10-5.20) 10*6/uL Hgb 7.6 L D (12.0-15.0) g/dL Hct 24.8 L (37.2-46.3) % MCHC 30.6 L (32.0-37.0) g/dL RDW 14.6 H (11.5-14.5) % Immature Gran # 0.09 H (0.00-0.04) 10*3/uL Neutrophils # 9.63 H (1.80-7.70) 10*3/uL Monocytes # 1.19 H (0.20-1.00) 10*3/uL Eosinophils # 0.01 L (0.04-0.35) 10*3/uL Chloride (98-107) mmol/L Calcium (8.4-10.2) mg/dL Alkaline Phosphatase (38-126) U/L Crossmatch Assessment and Plan Plan: Continue treatment as outlined yesterday. She can weight-bear as tolerated on her right leg. Leave incisional wound VAC in place. Will start doxycycline 100 mg twice daily given the patient's risk factors for wound healing issues and infection. Appreciate internal medicine's assistance with perioperative medical management. The patient will likely be in the hospital through the weekend with discharge to rehab/SNF next week.
[2024-11-11 10:35] LABS: HCT 25.1 % (37.2-46.3); HGB 7.3 g/dL (12.0-15.0); MCH 26.4 pg (27.0-32.0); MCHC 29.1 g/dL (32.0-37.0); MCV 90.9 FL (80.0-97.0); Mean Platelet Volume 10.5 FL (9.5-12.2); NRBC Per 100 WBC 0 X 10*3/uL (0.00-0.01); Platelet Count 258 X 10*3/uL (140-440); RBC 2.76 X 10*6/uL (4.10-5.20); RDW 14.7 % (11.5-14.5); WBC 12.75 X 10*3/uL (4.50-10.00)
[2024-11-11 11:00] LABS: ALT 21 U/L (8-44); AST 57 U/L (13-35); Albumin 2.8 g/dL (3.8-4.9); Albumin/Globulin Ratio 1.22 Ratio (1.60-3.17); Alkaline Phosphatase 132 U/L (41-126); Blood Urea Nitrogen 12.6 mg/dL (9.0-27.0); Calcium 8.6 mg/dL (8.7-10.3); Carbon Dioxide 18.2 mmol/L (21.6-31.8); Chloride 112 mmol/L (96-109); Globulin 2.3 g/dL (1.6-3.3); Glucose 104 mg/dL (70-110); Magnesium 1.7 mg/dL (1.5-2.4); Potassium 3.6 mmol/L (3.5-5.5); Sodium 142 mmol/L (135-145); Total Bilirubin 0.3 mg/dL (0.3-1.2); Total Protein 5.1 g/dL (6.2-8.2)
[2024-11-11] MEDS: DOXYCYCLINE 100 MG TABLET PO SCH (12:03)
[2024-11-11] MEDS: FERROUS SULFATE 325 MG TAB PO SCH (12:32)
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
[2024-11-11] MEDS: MAGNESIUM SULFATE-D5W PMX 1 GM in DEXTROSE/WATER 1 100ML.BAG IVPB SCH (17:53)
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
[2024-11-12 09:58] LABS: Basophils # (A) 0.02 X 10*3/uL (0.00-0.10); Basophils % (A) 0.2 %; Eosinophils # (A) 0.13 X 10*3/uL (0.04-0.35); Eosinophils % (A) 1.2 %; HCT 25.5 % (37.2-46.3); HGB 7.9 g/dL (12.0-15.0); Lymphocytes # (A) 2.11 X 10*3/uL (0.90-5.00); Lymphocytes % (A) 19.2 %; MCH 27.4 pg (27.0-32.0); MCV 88.5 FL (80.0-97.0); Mean Platelet Volume 10.9 FL (9.5-12.2); Monocytes # (A) 0.95 X 10*3/uL (0.20-1.00); Monocytes % (A) 8.7 %; NRBC Per 100 WBC 0 X 10*3/uL (0.00-0.01); Neutrophils % (A) 70.1 %; Platelet Count 246 X 10*3/uL (140-440); RBC 2.88 X 10*6/uL (4.10-5.20); RDW 14.6 % (11.5-14.5); WBC 10.98 X 10*3/uL (4.50-10.00)
[2024-11-12 10:00] LABS: Blood Urea Nitrogen 8.7 mg/dL (9.0-27.0); Calcium 8.9 mg/dL (8.7-10.3); Carbon Dioxide 19.7 mmol/L (21.6-31.8); Chloride 113 mmol/L (96-109); Glucose 119 mg/dL (70-110); Magnesium 2.1 mg/dL (1.5-2.4); Sodium 142 mmol/L (135-145)
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
[2024-11-12] MEDS: POTASSIUM CHLORIDE ER 20 MEQ TAB.ER PO STA (17:35)
[2024-11-12] MEDS: diazePAM 5 MG TAB PO PRN (22:36)
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
[2024-11-13 08:20] LABS: Blood Urea Nitrogen 6.2 mg/dL (9.0-27.0); Calcium 8.9 mg/dL (8.7-10.3); Carbon Dioxide 18.5 mmol/L (21.6-31.8); Chloride 110 mmol/L (96-109); Glucose 126 mg/dL (70-110); Magnesium 1.9 mg/dL (1.5-2.4); Potassium 3.7 mmol/L (3.5-5.5); Sodium 139 mmol/L (135-145)
[2024-11-13 08:33] LABS: HGB 8.3 g/dL (12.0-15.0); MCH 27.2 pg (27.0-32.0); MCHC 30.7 g/dL (32.0-37.0); MCV 88.5 FL (80.0-97.0); Mean Platelet Volume 10.6 FL (9.5-12.2); NRBC Per 100 WBC 0 X 10*3/uL (0.00-0.01); Platelet Count 315 X 10*3/uL (140-440); RBC 3.05 X 10*6/uL (4.10-5.20); RDW 14.6 % (11.5-14.5); WBC 12.67 X 10*3/uL (4.50-10.00)
[2024-11-13 14:12] VITALS: BMI 28.3
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
[2024-11-14 08:22] LABS: Basophils # (A) 0.03 X 10*3/uL (0.00-0.10); Basophils % (A) 0.2 %; Eosinophils # (A) 0.27 X 10*3/uL (0.04-0.35); Eosinophils % (A) 2.2 %; HCT 29.2 % (37.2-46.3); HGB 8.9 g/dL (12.0-15.0); Lymphocytes # (A) 2.95 X 10*3/uL (0.90-5.00); Lymphocytes % (A) 23.9 %; MCH 26.9 pg (27.0-32.0); MCHC 30.5 g/dL (32.0-37.0); MCV 88.2 FL (80.0-97.0); Mean Platelet Volume 10.6 FL (9.5-12.2); Monocytes # (A) 1.03 X 10*3/uL (0.20-1.00); Monocytes % (A) 8.3 %; NRBC Per 100 WBC 0 X 10*3/uL (0.00-0.01); Neutrophils # (A) 7.93 X 10*3/uL (1.80-7.70); Neutrophils % (A) 64.3 %; Platelet Count 370 X 10*3/uL (140-440); RBC 3.31 X 10*6/uL (4.10-5.20); RDW 14.5 % (11.5-14.5); WBC 12.35 X 10*3/uL (4.50-10.00)
[2024-11-14] MEDS: METOCLOPRAMIDE 5 MG/ML 2 ML VIAL IVP PRN (09:18)
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
[2024-11-14 14:00] VITALS: BP 109/68; PULSE 93; RESP 16; TEMP 99
== END 2024-11-14 16:34 | DRG 522 ==
LOC: OR 09:56 → 4SSUR 12:06
PROVIDERS: ADMIT Orthopaedic Surgery; ATTEND Orthopaedic Surgery
PROC: 0SR902A Replacement of Right Hip Joint with Metal on Polyethylene Synthetic Substitute, Uncemented, Open Approach (ICD-10-PCS; principal; 2024-11-09 07:30)
PROC: 30233N1 Transfusion of Nonautologous Red Blood Cells into Peripheral Vein, Percutaneous Approach (ICD-10-PCS; 2024-11-11)
DX: S72.011A Unspecified intracapsular fracture of right femur, initial encounter for closed fracture (principal); D62 Acute posthemorrhagic anemia; E03.9 Hypothyroidism, unspecified; F32.A Depression, unspecified; D72.829 Elevated white blood cell count, unspecified; E78.5 Hyperlipidemia, unspecified; K21.9 Gastro-esophageal reflux disease without esophagitis; M16.11 Unilateral primary osteoarthritis, right hip; M79.7 Fibromyalgia; N31.9 Neuromuscular dysfunction of bladder, unspecified; W19.XXXA Unspecified fall, initial encounter; Z96.642 Presence of left artificial hip joint; Z96.0 Presence of urogenital implants; Z98.1 Arthrodesis status; E83.52 Hypercalcemia; M50.30 Other cervical disc degeneration, unspecified cervical region; M51.360 Other intervertebral disc degeneration, lumbar region with discogenic back pain only; M51.34 Other intervertebral disc degeneration, thoracic region; K57.90 Diverticulosis of intestine, part unspecified, without perforation or abscess without bleeding; G62.9 Polyneuropathy, unspecified; Z96.653 Presence of artificial knee joint, bilateral; R41.3 Other amnesia; G89.4 Chronic pain syndrome; E87.8 Other disorders of electrolyte and fluid balance, not elsewhere classified; Z79.890 Hormone replacement therapy; Z79.899 Other long term (current) drug therapy; Z88.1 Allergy status to other antibiotic agents; Z88.8 Allergy status to other drugs, medicaments and biological substances; Z87.01 Personal history of pneumonia (recurrent)
CPT/HCPCS: 71045; 73501; 80048; 80053; 83735; 85025; 85027; 85610; 86850; 86900; 86901; 86920; 93005; 96374; 96376; 99285